=== PATIENT | female | born 1960 | race Caucasian/White ===

== ENCOUNTER 2020-09-17 12:35 | Emergency (ER) | payer OTHER ==
--- NOTE | 2020-09-17 14:18 | RAD REPORT ---
EXAM DESCRIPTION: RAD -Hand Left 3 View - 09/17/2020 1:56 pm CLINICAL HISTORY: Left hand pain status post injury FINDINGS: Mildly to moderately displaced fracture involves the proximal metaphysis fifth proximal ph alanx. No dislocation
--- NOTE | 2020-09-17 15:33 | ER ---
Nurse's Notes [facility] Name: Yun Hawley Age: 59 yrs Sex: Female : 1960 Arrival Date: 09/17/2020 Time: 12:38 Bed 19 Private MD: Diagnosis: 5th Metacarpal Fracture Presentation: 09/17 12:45 Chief complaint: Patient states: Tripped after uatsdin today. L hand pain and swelling ll1 since. Coronavirus screen: Client denies travel out of the [place] in the last 14 days. At this time, the client does not indicate any symptoms associated with coronavirus-19. Ebola Screen: Patient denies travel to an Ebola-affected area in the 21 days before illness onset. Initial Sepsis Screen: Does the patient meet any 2 criteria? No. Patient's initial sepsis screen is negative. Does the patient have a suspected source of infection? Yes: Bone or joint infection. Risk Assessment: Do you want to hurt yourself or someone else? Patient reports no desire to harm self or others. Onset of symptoms was September 17, 2020. 12:45 Method Of Arrival: Ambulatory ll1 12:45 Acuity: CHARITY 4 ll1 Triage Assessment: 15:51 Injury Description: Fall. ae4 Historical: - Allergies: 12:45 Codeine; ll1 12:45 Latex, Natural Rubber; ll1 12:45 Adhesives; ll1 - PMHx: 12:45 Diabetes - IDDM; 4 compressed fx of the back; Charcomarie tooth; ll1 - PSHx: 12:45 Shoulder Surgery; Cholecystectomy; Hysterectomy; ll1 - Immunization history:: Flu vaccine is not up to date. - Social history:: Smoking status: Patient denies any tobacco usage or history of. Screenin:47 Abuse screen: Denies threats or abuse. Nutritional screening: No deficits noted. ae4 Tuberculosis screening: No symptoms or risk factors identified. Fall Risk None identified. Assessment: 12:45 General: Appears in no apparent distress. uncomfortable, obese, unkempt, Behavior is ae4 calm, cooperative. Pain: Complains of pain in dorsal aspect of proximal phalanx of left index finger, dorsal aspect of middle phalanx of left middle finger, dorsal aspect of proximal phalanx of left middle finger, dorsal aspect of middle phalanx of left ring finger, dorsal aspect of proximal phalanx of left ring finger and dorsum of left hand. Neuro: Level of Consciousness is awake, alert, obeys commands, Oriented to person, place, time, situation, Appropriate for age. Cardiovascular: Patient's skin is warm and dry. Respiratory: Airway is patent Respiratory effort is even, unlabored, Respiratory pattern is regular. GI: No signs and/or symptoms were reported involving the gastrointestinal system. : No signs and/or symptoms were reported regarding the genitourinary system. EENT: No signs and/or symptoms were reported regarding the EENT system. Derm: Skin is pink, warm \T\ dry. Musculoskeletal: Swelling present in left hand. Vital Signs: 12:45 BP 155 / 82; Pulse 86; Resp 17; Temp 98.1; Pulse Ox 96% ; Weight 74.84 kg; Height 5 ft. ll1 1 in. (154.94 cm); Pain 9/10; 12:45 BP 131 / 96; Pulse 88; Resp 18; Pulse Ox 95% on R/A; ae4 13:50 BP 134 / 91; Pulse 72; Resp 18; Pulse Ox 100% on R/A; ae4 14:43 BP 136 / 75; Pulse 84; Resp 18; Pulse Ox 99% on R/A; ae4 12:45 Body Mass Index 31.18 (74.84 kg, 154.94 cm) ll1 ED Course: 12:38 Patient arrived in ED. rg4 12:43 Arm band placed on. ll1 12:45 Bed in low position. Call light in reach. Side rails up X 1. Pulse ox on. NIBP on. Warm ae4 blanket given. 12:46 Trvais Johnston PA is PHCP. [facility] 12:46 Sylvester Mancuso MD is Attending Physician. [facility] 12:46 Triage completed. ll1 13:50 Garrick Noriega, MISSAEL is Primary Nurse. ae4 15:07 Casey wrap to Left Hand Orthoglass splint: Ulnar gutter/Boxer splint applied on left jp3 forearm. 15:33 Robi Tay MD is Referral Physician. [facility] 15:33 Napoleon Patel MD is Referral Physician. [facility] 15:50 No provider procedures requiring assistance completed. Patient did not have IV access ae4 during this emergency room visit. Administered Medications: No medications were administered Outcome: 15:33 Discharge ordered by MD. mchugh 15:50 Discharged to home ambulatory. ae4 15:50 Condition: stable 15:50 Discharge instructions given to patient, Instructed on discharge instructions, follow up and referral plans. Demonstrated understanding of instructions. 15:51 Patient left the ED. ae4 Signatures: Travis Johnston PA PA jmm Garcia, Rubi rg4 Gennaro Danielson jp3 Garrick Noriega RN RN ae4 Michael Bui, RN RN ll1
--- NOTE | 2020-09-17 15:33 | EDPHYS ---
Physician Documentation [facility] Name: Yun Hawley Age: 59 yrs Sex: Female : 1960 Arrival Date: 09/17/2020 Time: 12:38 Bed 19 Private MD: ED Physician Sylvester Mancuso HPI: 09/17 13:02 This 59 yrs old Female presents to ER via Ambulatory with complaints of Hand jmm Injury. 13:02 The patient or guardian reports injury. Onset: The symptoms/episode began/occurred jmm acutely, just prior to arrival. Modifying factors: The symptoms are alleviated by nothing, the symptoms are aggravated by movement. Associated signs and symptoms: Pertinent negatives: cyanosis distally, decreased sensation distally, numbness distally, tingling distally. This is a 59 year old female with a history of DM, that presents ot the ED with complaints of right sided hand pain which occurred after tripping on a curb and falling directly on the hand. Patient denies hitting her head. Historical: - Allergies: 12:45 Codeine; ll1 12:45 Latex, Natural Rubber; ll1 12:45 Adhesives; ll1 - PMHx: 12:45 Diabetes - IDDM; 4 compressed fx of the back; Charcomarie tooth; ll1 - PSHx: 12:45 Shoulder Surgery; Cholecystectomy; Hysterectomy; ll1 - Immunization history:: Flu vaccine is not up to date. - Social history:: Smoking status: Patient denies any tobacco usage or history of. ROS: 13:02 Constitutional: Negative for fever, chills, and weight loss, Cardiovascular: Negative jmm for chest pain, palpitations, and edema, Respiratory: Negative for shortness of breath, cough, wheezing, and pleuritic chest pain. 13:02 MS/extremity: Positive for injury or acute deformity. 13:02 All other systems are negative. Exam: 13:02 Constitutional: This is a well developed, well nourished patient who is awake, alert, jmm and in no acute distress. Head/Face: atraumatic. Eyes: EOMI, no conjunctival erythema appreciated ENT: Moist Mucus Membranes Neck: Trachea midline, Supple Chest/axilla: Normal chest wall appearance and motion. Cardiovascular: Regular rate and rhythm. No edema appreciated Respiratory: Normal respirations, no respiratory distress appreciated Abdomen/GI: Non distended, soft Back: Normal ROM Skin: General appearance color normal 13:02 Musculoskeletal/extremity: FROM noted to the right hand, < 2 sec dist cap refill, compartments are soft, sensation intact. 13:02 Skin: Appearance: Color: normal in color. 13:02 Neuro: Orientation: is normal, Mentation: is normal, Memory: is normal. 13:02 Psych: Behavior/mood is pleasant, cooperative. Vital Signs: 12:45 BP 155 / 82; Pulse 86; Resp 17; Temp 98.1; Pulse Ox 96% ; Weight 74.84 kg; Height 5 ft. ll1 1 in. (154.94 cm); Pain 9/10; 12:45 BP 131 / 96; Pulse 88; Resp 18; Pulse Ox 95% on R/A; ae4 13:50 BP 134 / 91; Pulse 72; Resp 18; Pulse Ox 100% on R/A; ae4 14:43 BP 136 / 75; Pulse 84; Resp 18; Pulse Ox 99% on R/A; ae4 12:45 Body Mass Index 31.18 (74.84 kg, 154.94 cm) ll1 Procedures: 13:02 Splinting: Splint applied to right hand using ulnar gutter. applied by tech. Examined jm by me, post splint application: neurovascular intact, 2+ distal pulses palpable, brisk capillary refill noted, Patient tolerated well. MDM: 13:02 Patient medically screened. [facility] 15:31 Data reviewed: vital signs, nurses notes. Counseling: I had a detailed discussion with jeison the patient and/or guardian regarding: the historical points, exam findings, and any diagnostic results supporting the discharge/admit diagnosis, radiology results, the need for outpatient follow up, to return to the emergency department if symptoms worsen or persist or if there are any questions or concerns that arise at home. ED course: Patient advised to follow up with ortho or hand for further evaluation. patient given strict return precautions. patient understood and agrees with the plan of care. . 09/17 13:02 Order name: Hand Left 3 View XRAY [facility] 09/17 14:18 Order name: RAD; Complete Time: 14:27 EDNM 09/17 13:02 Order name: Ice pack; Complete Time: 13:51 [facility] 09/17 14:27 Order name: Ulnar Gutter splint; Complete Time: 15:07 [facility] Administered Medications: No medications were administered Disposition: 09/17/20 15:33 Discharged to Home. Impression: 5th Metacarpal Fracture. - Condition is Stable. - Discharge Instructions: Metacarpal Fracture. - Medication Reconciliation Form, Thank You Letter, Antibiotic Education, Prescription Opioid Use form. - Follow up: Private Physician; When: 2 - 3 days; Reason: Recheck today's complaints, Continuance of care, Re-evaluation by your physician. Follow up: Robi Tay MD; When: 2 - 3 days; Reason: Recheck today's complaints, Continuance of care, Re-evaluation by your physician. Follow up: Napoleon Patel MD; When: 2 - 3 days; Reason: Recheck today's complaints, Continuance of care, Re-evaluation by your physician. Addendum: 09/22/2020 19:20 Co-signature as Attending Physician, Sylvester Mancuso MD I agree with the assessment and t w4 plan of care. Signatures: Dispatcher [employer] EDMS Travis Johnston PA PA Sylvester Mon MD MD tw4 Garrick Noriega RN RN ae4 Michael Bui RN RN ll1 Corrections: (The following items were deleted from the chart) 09/17 15:33 15:33 09/17/2020 15:33 Discharged to Home. Impression: 5th Metacarpal Fracture. [facility] Condition is Stable. Forms are Medication Reconciliation Form, Thank You Letter, Antibiotic Education, Prescription Opioid Use. Follow up: Private Physician; When: 2 - 3 days; Reason: Recheck today's complaints, Continuance of care, Re-evaluation by your physician. [facility] 15:51 15:33 09/17/2020 15:33 Discharged to Home. Impression: 5th Metacarpal Fracture. ae4 Condition is Stable. Discharge Instructions: Metacarpal Fracture. Forms are Medication Reconciliation Form, Thank You Letter, Antibiotic Education, Prescription Opioid Use. Follow up: Private Physician; When: 2 - 3 days; Reason: Recheck today's complaints, Continuance of care, Re-evaluation by your physician. Follow up: Robi Tay; When: 2 - 3 days; Reason: Recheck today's complaints, Continuance of care, Re-evaluation by your physician. Follow up: Napoleon Patel; When: 2 - 3 days; Reason: Recheck today's complaints, Continuance of care, Re-evaluation by your physician. jeison
[2020-09-17 15:57] VITALS: TEMP 98.1
[2020-09-17 15:59] VITALS: BP 136/75; O2SAT 99
== END 2020-09-17 15:51 | disposition home or self-care (01) ==
LOC: ER 12:35
PROC: 2W3DX1Z Immobilization of Left Lower Arm using Splint (ICD-10-PCS; principal; 2020-09-17)
DX: S62.397A Other fracture of fifth metacarpal bone, left hand, initial encounter for closed fracture (principal); W01.0XXA Fall on same level from slipping, tripping and stumbling without subsequent striking against object, initial encounter; Y93.01 Activity, walking, marching and hiking; Y92.9 Unspecified place or not applicable; Z88.5 Allergy status to narcotic agent; Z91.040 Latex allergy status; Z91.048 Other nonmedicinal substance allergy status
CPT/HCPCS: 99283

== ENCOUNTER 2021-12-10 14:22 | Emergency (ER) | payer OTHER ==
--- OUTSIDE RECORDS SUMMARY | 2021-12-10 14:29 | XMS REPORT | Continuity of Care Document ---
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 bedtime. cyclobenzap 2019-0 Yes 10mg Take 10 mg NPI:183 rine 10 mg 4-09 by mouth [id number] tablet 00:00: at 00 bedtime. 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 Ipratropium 2018-0 No 0.5 mg, Mem oria 3-30 Route: l 14:00: NEB, Drug Kapaa 00 form: AERO, ONCE, Dosing Weight 73.182, kg, PRN Respirator y Protocol, Start date: 10/31/17 9:00:00 CDT Albuterol 2018-0 No 2.5 mg, 3 Mem oria 0.83 MG/ML 3-30 mL, Route: l Inhalant 13:57: NEB, Drug Herm maru Solution 00 form: AERO, ONCE, Dosing Weight 73.182, kg, Start date: 10/31/17 8:57:00 CDT, Stop date: 10/31/17 8:57:00 CDT Sodium 2018-0 No 1,000 mL, Memori a Chloride 3-30 Rate: 25 l 0.9% IV 12:04: ml/hr, Kapaa 1000 mL 00 Infuse over: 40 hr, Route: IV, Dosing Weight 73.182 kg, Total Volume: 1,000, Start date: 10/31/17 7:04:00 CDT, Duration: 30 day, Stop date: 11/30/17 7:03:00 CDT, 1.8, m2 Etodolac 2018-0 No 300 mg = 1 Mem oria 300 MG Oral 3-04 cap, PO, l Capsule 08:30: BID, PRN Haris n [Lodine] 00 Pain, # 20 cap, 0 Refill(s) Ketorolac 2018-0 No 30 mg, Memori a 3-04 Route: IM, l 08:22: Drug form: Derek 00 INJ, ONCE, Dosing Weight 75, kg, Priority: STAT, Start date: 10/05/17 2:22: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, Stop date: 10/05/17 2:22: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 Zofran No Notes: Memoria 3-04 (Same as: l 06:03: Zofran Derek 00 ODT) Morphine No Notes: Memoria 3-04 (Same l 06:02: as:MORPhin Derek 00 e Sulfate) Methocarbam 2016-08 Yes 1,000 mg = Memoria ol 500 MG 1-10 2 tab, PO, l Oral Tablet 21:33: TID, X 3 He rmann [Robaxin] 00 day, # 18 tab, 0 Refill(s) tramadol 2016-08 Yes 50 mg = 1 Seymour vanna hydrochlori 1-10 tab, PO, l de 50 MG 21:33: Q6H, X 5 Anahi nn Oral Tablet 00 day, # 20 tab, 0 Refill(s) Mupirocin No 1 appl, Memor ia 0.02 MG/MG 10-23 NASAL, l Nasal 06:47: BID, # 1 Derek Ointment 00 gm, 0 [Bactroban] Refill(s) Septra DS Yes 1 tab, PO, Me moria 800 mg-160 -22 BID, X 7 l mg oral 06:47: day, # 14 Anahi nn tablet 00 tab, 0 Refill(s) tramadol No Notes: Not Mem oria hydrochlori -22 to exceed l de 50 MG 05:44: 400mg/day. Her prieto Oral Tablet 00 (Same As: Ultram) LET topical No Notes: For Memoria -22 topical l 05:43: use only - Kapaa Lidocain- epinephrin e-tetracai ne 1.5 ml top GEL. (Same as: Adrenalin- Xylocaine- Tetracaine ) Morphine No Notes: Memoria 3-14 (Same l 06:50: as:MORPhin Derek 00 e Sulfate) Morphine No Notes: Memoria 3-14 (Same l 02:50: as:MORPhin Derek 00 e Sulfate) Ondansetron No Notes: Seymour vanna 3-14 (Same as: l 02:50: Zofran) Kapaa 00 MEDICATION WASTE Product Size: 4 mg Product Wasted: ___ mg Sodium No 1,000 mL, Memori a Chloride 3-14 1000 l 0.154 02:50: ml/hr, Derek MEQ/ML 00 Infuse Injectable Over: 1 Solution hr, Route: IV, 1,000, Drug form: INJ, ONCE, Priority: STAT, Dosing Weight 71.036 kg, Start date: 10/14/16 21:50:00 CDT, Duration: 1 doses or times, Stop date: 10/14/16 21:50:00 CDT Metronidazo 2014-08 Yes 500 mg = 1 Memoria le 500 MG 1-23 tab, PO, l Oral Tablet 15:00: Q8H, X 7 He rmann [Flagyl] 13 day, # 21 tab, 0 Refill(s) ciprofloxac 2014-08 Yes 500 mg = 1 Memoria in 500 mg 1-23 tab, PO, l oral tablet 15:00: Q12H, X 7 H ermann 11 day, # 14 tab, 0 Refill(s) Protonix 2014-08 No Notes: Memoria 1-22 Tablet l 22:30: should not be chewed or crushed. (Same as: Protonix) Prilosec 2014-08 No 40 mg, Memoria -22 Route: PO, l 15:00: Drug form: DRC, Daily, Dosing Weight 71.036, kg, Start date: 06/25/15 9:00:00, Duration: 30 day, Stop date: 07/24/15 9:00:00 Zocor 2014-08 No Notes: Memoria 1-22 (Same as: l 03:00: Zocor) gabapentin 2014-08 No Notes: Memor ia 300 MG Oral -22 (Same as: l Capsule 03:00: Neurontin) Insulin, 2014-08 No Notes: Memoria Aspart, 1-22 Roll in l Human 01:33: palms of hands gently; Do not shake vigorously . (Same as: NovoLOG) "single patient use only" Stable for 28 days at room temperatur e. Expires in days from ____Date Glucagon 2014-08 No 1 mg, Memoria 08-25 Route: IM, l 01:33: Drug form: Kapaa 00 PDR/INJ, PRN, Dosing Weight 71.036, kg, PRN Blood Glucose Results, Start date: 06/24/15 19:33:00, Duration: 30 day, Stop date: 07/24/15 19:32:00 Dextrose 2014-08 No 25 gm, 50 Seymour vanna 50% Syringe 1-22 mL, Route: l 01:33: IVP, Drug Kapaa 00 Form: INJ, Dosing Weight 71.036, kg, PRN, PRN Blood Glucose Results, Start date: 06/24/15 19:33:00, Duration: 30 day, Stop date: 07/24/15 19:32:00 Flagyl 2014-08 No Notes: Memoria 08-25 (Same as: l 01:00: Flagyl) Derek 00 Avoid alcohol. Ciprofloxac 2014-08 No Notes: Do M emoria in 2 MG/ML 08-25 not l Injectable 01:00: refrigerat H ermann Solution 00 e [Cipro] Flexeril 2014-08 No Notes: Memoria 08-25 (Same As: l 00:53: Flexeril) Kapaa 00 Acetaminoph 2014-08 No Notes: Do M emoria en 325 MG / 08-25 not exceed l Hydrocodone 00:52: 4gm/day of Derek Bitartrate 00 acetaminop 10 MG Oral hen. Tablet (Same as: [Bovill Bovill 10/325] 325/10) Zofran 2014-08 No Notes: Memoria 08-25 (Same as: l 00:51: Zofran) Derek 00 MEDICATION WASTE Product Size: 4 mg Product Wasted: ___ mg Ondansetron 2014-08 No Notes: Seymour vanna 08-25 (Same as: l 00:49: Zofran) Derek 00 MEDICATION WASTE Product Size: 4 mg Product Wasted: ___ mg Ondansetron 2014-08 No Notes: Seymour vanna 08-24 (Same as: l 23:29: Zofran) Derek 00 MEDICATION WASTE Product Size: 4 mg Product Wasted: ___ mg Morphine 2014-08 No Notes: Memoria 08-24 (Same l 23:29: as:MORPhin Derek 00 e Sulfate) Saline 2014-08 No 10 ml, Memoria Flush 0.9% 08-24 Route: l 23:29: IVP, Drug Derek 00 Form: INJ, Dosing Weight 71.364, kg, PRN, PRN Line Flush, Start date: 06/24/15 17:29:00, Duration: 30 day, Stop date: 07/24/15 17:28:00 Sodium 2014-08 No 1,000 mL, Memori a Chloride 08-24 Rate: 100 l 0.154 23:29: ml/hr, Derek MEQ/ML 00 Infuse Injectable over: 10 Solution hr, Route: IV, Dosing Weight 71.364 kg, Total Volume: 1,000, Start date: 06/24/15 17:29:00, Stop date: 07/24/15 17:28:00 Dilaudid 2014-08 No 1 mg, 1 Memori a 08-24 mL, Route: l 22:07: IVP, Drug form: INJ, ONCE, Dosing Weight 71.364, kg, Priority: STAT, Start date: 06/24/15 16:07:00, Stop date: 06/24/15 16:07:00 Flagyl 2014-08 No Notes: Memoria 08-24 (Same as: l 21:49: Flagyl) Avoid alcohol. Ciprofloxac 2014-08 No Notes: Do M emoria in 08-24 not l 21:48: refrigerat e Ondansetron 2014-08 No Notes: Seymour vanna 08-24 (Same as: l 18:46: Zofran) Derek 00 MEDICATION WASTE Product Size: 4 mg Product Wasted: ___ mg Morphine 2014-08 No Notes: Memoria 08-24 (Same l 18:46: as:MORPhin Derek 00 e Sulfate) Sodium 2014-08 No 1,000 mL, Memori a Chloride 08-24 1000 l 0.154 18:46: ml/hr, Kapaa MEQ/ML 00 Infuse Injectable Over: 1 Solution hr, Route: IV, 1,000, Drug form: INJ, ONCE, Priority: STAT, Dosing Weight 71.364 kg, Start date: 06/24/15 12:46:00, Duration: 1 doses or times, Stop date: 06/24/15 12:46:00 Saline 2014-08 No Notes: Memoria Flush 0.9% 21 (Same as: l 18:46: BD Kapaa 00 Posiflush) Lisinopril 2014-08 No Notes: Memor ia 17 (Same as: l 23:00: Prinivil, Kapaa 00 Zestril) Protonix 2014-08 No Notes: Memoria 1-17 Tablet l 22:30: should not Kapaa 00 be chewed or crushed. (Same as: Protonix) Metronidazo 2014-08 Yes 500 mg = 1 Memoria le 500 MG 1-17 tab, PO, l Oral Tablet 16:38: Q8H, X 7 He rmann [Flagyl] day, # 21 tab, 0 Refill(s) ciprofloxac 2014-08 Yes 500 mg = 1 Memoria in 500 mg 1-17 tab, PO, l oral tablet 16:38: Q12H, X 7 H ermann day, # 14 tab, 0 Refill(s) PLease 2014-08 No PLease Memoria bring pt's -17 bring pt's l own Xopenx 15:00: own Xopenx H ermann inhaler & 00 inhaler & meloxicam meloxicam, Reminder, Drug form: MISC, Route: MISC, Daily, 06/20/15 9:00:00, Duration: 30 day, Stop date: 07/19/15 9:00:00 Prilosec 2014-08 No 40 mg, Memoria -17 Route: PO, l 15:00: Drug form: Kapaa DRC, Daily, Dosing Weight 76.818, kg, Start date: 06/20/15 9:00:00, Duration: 30 day, Stop date: 07/19/15 9:00:00 influenza 2014-08 No Notes: Memori a virus -17 (Same as: l vaccine, 15:00: Fluzone Haris n inactivated 00 Quadrivale nt) For 3 years of age and older (0.5 mL IM) Shake well before use pneumococca 2014-08 No 0.5 mL, Mem oria l capsular -17 Route: IM, l polysacchar 15:00: Daily, Herm maru kera type 1 00 Start vaccine / date: pneumococca 06/20/15 l capsular 9:00:00, polysacchar Duration: kera type 1 doses or 10A vaccine times, / Stop date: pneumococca 06/20/15 l capsular 9:00:00 polysacchar kera type 11A vaccine / pneumococca l capsular polysacchar kera type 12F vaccine / pneumococca l capsular polysacchar Zocor 2014-08 No Notes: Memoria 1-17 (Same as: l 03:00: Zocor) Kapaa gabapentin 2014-08 No Notes: Memor ia 300 MG Oral 08-20 (Same as: l Capsule 03:00: Neurontin) Herm maru Xopenex 2014-08 No Notes: SEE Seymour vanna -17 RT l 02:09: DOCUMENTAT Derek 00 ION (Same as:Xopenex ) Non-Formul casa meloxicam 2014-08 No 7.5 mg, Memor ia 08-20 Route: PO, l 00:46: Drug form: Kapaa 00 TAB, Daily, Dosing Weight 76.818, kg, PRN Pain Score 4-6, Start date: 06/19/15 18:46:00, Duration: 30 day, Stop date: 07/19/15 18:45:00 Xopenex HFA 2014-08 No 2 puff, Mem oria 08-20 Route: l 00:46: INHALATION Kapaa , Dosing Weight 76.818, kg, Q4H, PRN Wheezing, Start date: 06/19/15 18:46:00, Duration: 30 day, Stop date: 07/19/15 18:45:00 Flexeril 2014-08 No Notes: Memoria 1-17 (Same As: l 00:46: Flexeril) Kapaa Protonix 2014-08 No Notes: Memoria 1-16 Tablet l 22:30: should not Derek 00 be chewed or crushed. (Same as: Protonix) Cyclobenzap 2014-08 Yes 10 mg = 1 M emoria rine 1-16 tab, PO, l hydrochlori 22:28: Daily, PRN Derek de 10 MG 00 as needed Oral Tablet for muscle [Flexeril] spasm, 0 Refill(s) Omeprazole 2014-08 Yes 40 mg = 1 Me moria 40 MG 1-16 cap, PO, l Enteric 22:27: Daily, 0 Haris n Coated 00 Refill(s) Capsule [Prilosec] gabapentin 2014-08 Yes 300 mg = 1 M emoria 300 MG Oral 1-16 cap, PO, l Capsule 22:27: BID, 0 Kapaa 00 Refill(s) Acetaminoph 2014-08 Yes 1 tab, PO, Memoria en 325 MG / -16 TID, PRN l Hydrocodone 22:27: Pain Score Derek Bitartrate 00 6-10, 0 10 MG Oral Refill(s) Tablet [Bovill 10/325] meloxicam 2014-08 Yes 7.5 mg = 1 Me moria 7.5 mg oral 1-16 tab, PO, l tablet 22:26: Daily, PRN Anahi nn 00 Pain Score 4-6, 0 Refill(s) canaglifloz 2014-08 Yes 300 mg = 1 Memoria in 300 MG -16 tab, PO, l Oral Tablet 22:26: Daily, 0 He rmann [Invokana] 00 Refill(s) Xopenex HFA 2014-08 Yes 2 puff, Mem oria 16 INHALATION l 22:25: , Q4H, PRN Kapaa 00 as needed for wheezing, 0 Refill(s) 1.5 ML 2014-08 Yes 60 unit, Memoria Insulin -16 SUB-Q, l Glargine 22:23: QPM, 0 Kapaa 300 UNT/ML 00 Refill(s) Prefilled Syringe [Toujeo] 0.5 ML 2014-08 Yes 50 mg, Memoria albiglutide 16 SUB-Q, l 100 MG/ML 22:22: QMon, 0 Anahi nn Prefilled 00 Refill(s) Syringe [Tanzeum] lisinopril 2014-08 Yes 40 mg = 1 Me moria 40 mg oral 1-16 tab, PO, l tablet 22:21: QPM, 0 Kapaa 00 Refill(s) Simvastatin 2014-08 Yes 10 mg = 1 M emoria 10 MG Oral 1-16 tab, PO, l Tablet 22:21: Bedtime, 0 Anahi nn [Zocor] 00 Refill(s) Insulin, 2014-08 No Notes: Memoria Aspart, 1-16 Roll in l Human 21:03: palms of Kapaa 00 hands gently; Do not shake vigorously . (Same as: NovoLOG) "single patient use only" Stable for 28 days at room temperatur e. Expires in days from ____Date Dextrose 2014-08 No 25 gm, 50 Seymour vanna 50% Syringe 1-16 mL, Route: l 21:03: IVP, Drug Derek 00 Form: INJ, Dosing Weight 76.818, kg, PRN, PRN Blood Glucose Results, Start date: 06/19/15 15:03:00, Duration: 30 day, Stop date: 07/19/15 15:02:00 Glucagon 2014-08 No 1 mg, Memoria 1-16 Route: IM, l 21:03: Drug form: Derek 00 PDR/INJ, PRN, Dosing Weight 76.818, kg, PRN Blood Glucose Results, Start date: 06/19/15 15:03:00, Duration: 30 day, Stop date: 07/19/15 15:02:00 Sodium 2014-08 No 1,000 mL, Memori a Chloride 1-16 Rate: 150 l 0.154 21:02: ml/hr, Derek MEQ/ML 00 Infuse Injectable over: 6.7 Solution hr, Route: IV, Dosing Weight 76.818 kg, Total Volume: 1,000, Start date: 06/19/15 15:02:00, Duration: 30 day, Stop date: 07/19/15 15:01:00 Flagyl 2014-08 No Notes: Memoria 1-16 (Same as: l 21:00: Flagyl) Kapaa 00 Avoid alcohol. Cipro 2014-08 No Notes: Do Memoria 1-16 not l 21:00: refrigerat [place] 00 e Sodium 2014-08 No 1,000 mL, Memori a Chloride 1-16 Rate: 125 l 0.154 21:00: ml/hr, Kapaa MEQ/ML 00 Infuse Injectable over: 8 Solution hr, Route: IV, Dosing Weight 76.818 kg, Total Volume: 1,000, Start date: 06/19/15 15:00:00, Duration: 30 day, Stop date: 07/19/15 14:59:00 Saline 2014-08 No Notes: Memoria Flush 0.9% 08-19 (Same as: l 21:00: BD [place]aa 00 Posiflush) Morphine 2014-08 No Notes: Memoria 08-19 (Same l 21:00: as:MORPhin Derek 00 e Sulfate) Ondansetron 2014-08 No Notes: Seymour vanna 08-19 (Same as: l 21:00: Zofran) Kapaa MEDICATION WASTE Product Size: 4 mg Product Wasted: ___ mg Docusate 2014-08 No Notes: Memoria 08-19 (Same as: l 21:00: Colace) Derek (Do Not Crush) Acetaminoph 2014-08 No Notes: Do M emoria en 08-19 not exceed l 21:00: 4 gm/day. Derek (Same as: Tylenol) Acetaminoph 2014-08 No Notes: Seymour vanna en 325 MG / 08-19 (Same as: l Hydrocodone 21:00: Bovill Anahi nn Bitartrate 00 325/5) Do 5 MG Oral not exceed Tablet 4gm/day of acetaminop hen. Dilaudid 2014-08 No 0.5 mg, Memori a 08-19 0.5 mL, l 20:51: Route: [place] 00 IVP, Drug form: INJ, ONCE, Dosing Weight 76.818, kg, Priority: STAT, Start date: 06/19/15 14:51:00, Stop date: 06/19/15 14:51:00 Ciprofloxac 2014-08 No 400 mg, Mem oria in 08-19 Route: l 20:46: IVPB, [place] 00 ONCE, Dosing Weight 76.818, kg, Priority: STAT, Start date: 06/19/15 14:46:00, Stop date: 06/19/15 14:46:00 Flagyl 2014-08 No 500 mg, Memoria 08-19 Route: l 20:46: IVPB, Derek 00 ONCE, Dosing Weight 76.818, kg, Priority: STAT, Start date: 06/19/15 14:46:00, Stop date: 06/19/15 14:46:00 Ceftriaxone 2014-08 No 1 gm, Memor ia 08-19 Route: l 18:26: IVPB, Drug form: PDR/INJ, ONCE, Dosing Weight 76.818, kg, Priority: STAT, Start date: 06/19/15 12:26:00, Stop date: 06/19/15 12:26:00 Dilaudid 2014-08 No 0.5 mg, Memori a 08-19 Route: l 18:26: IVP, ONCE, Dosing Weight 76.818, kg, Priority: STAT, Start date: 06/19/15 12:26:00, Stop date: 06/19/15 12:26:00 Morphine 2014-08 No 4 mg, Memoria 08-19 Route: l 17:13: IVP, ONCE, Dosing Weight 76.818, kg, Priority: STAT, Start date: 06/19/15 11:13:00, Stop date: 06/19/15 11:13:00 Ondansetron 2014-08 No 4 mg, Memor ia 08-19 Route: l 17:13: IVP, ONCE, Dosing Weight 76.818, kg, Priority: STAT, Start date: 06/19/15 11:13:00, Stop date: 06/19/15 11:13:00 Saline 2014-08 No Notes: Memoria Flush 0.9% 08-19 (Same as: l 17:13: BD Posiflush) Sodium 2014-08 No 1,000 mL, Memori a Chloride 08-19 Infuse l 0.154 17:13: Over: 1 Derek MEQ/ML 00 hr, Route: Injectable IV, ONCE, Solution Priority: STAT, Dosing Weight 76.818 kg, Start date: 06/19/15 11:13:00, Duration: 1 doses or times, Stop date: 06/19/15 11:13:00 tramadol Yes 1 - 2 Memoria hydrochlori 1-24 tabs, PO, l de 50 MG 08:57: Q4-6H, as Herm maru Oral Tablet 00 needed for [Ultram] pain, # 30 tab, 0 Refill(s) ibuprofen Yes Special Memor ia 800 mg oral 1-24 Instructio l tablet 08:57: ns: Take Derek with food Ondansetron No 4 mg, Memor ia 4 MG 08-27 Route: PO, l Disintegrat 08:26: Drug form: Kapaa ing Tablet 00 TABDIS, ONCE, Dosing Weight 75, kg, Priority: STAT, Start date: 08/27/14 2:26:00, Stop date: 08/27/14 2:26:00 Acetaminoph No 1 tab, Seymour vanna en 325 MG / 08-27 Route: PO, l Hydrocodone 07:44: Dosing Herm maru Bitartrate 00 Weight 75, 7.5 MG Oral kg, ONCE, Tablet STAT, Start date: 08/27/14 1:44:00, Stop date: 08/27/14 1:44:00 Acetaminoph Yes 1 tab, PO, Memoria en 325 MG / 04-08 Q4-6H, as l Hydrocodone 06:42: needed for Derek Bitartrate 00 pain, # 30 5 MG Oral tab, 0 Tablet Refill(s) [Bovill 5/325] Naproxen Yes 500 mg = 1 Mem oria 500 MG Oral 04-08 tab, PO, l Tablet 06:42: BID, for Kapaa [Naprosyn] 00 pain, # 20 tab, 0 Refill(s) Morphine No 4 mg, Memoria 04-08 Route: l 06:39: IVP, ONCE, Derek 00 Dosing Weight 75, kg, Priority: STAT, Start date: 04/08/14 1:39:00, Stop date: 04/08/14 1:39:00 Ketorolac No 30 mg, Memori a 04-08 Route: l 06:38: IVP, Drug [place] 00 form: INJ, ONCE, Dosing Weight 75, kg, Priority: STAT, Start date: 04/08/14 1:38:00, Stop date: 04/08/14 1:38:00 Zofran No Notes: Memoria 04-08 (Same as: l 03:47: Zofran) Kapaa 00 Morphine No Notes: Memoria 04-08 (Same l 03:47: as:MORPhin Kapaa e Sulfate) Xopenex No 1.25 mg, Memori a 04-08 Route: l 03:46: NEB, ONCE, [place] 00 Dosing Weight 75, kg, Start date: 04/07/14 22:46:00, Stop date: 04/07/14 22:46:00 heparin No Uriel 5,000 Memor ia 5000 01-14 Hussein Romero unit, 1 l units/mL 21:00: mL, Route: Her prieto injectable 00 SUB-Q, solution Drug form: INJ, Q8H, Dosing Weight 76.818, kg, Start date: 01/14/13 16:00:00, Duration: 30 day, Stop date: 02/13/13 8:00:00 Zofran 4 mg Yes Uriel 4 mg, 1 Memoria oral tablet 01-14 Hussein Romero tab, PO, l 19:42: Q8H, PRN, Derek 07 25 tab, as needed for nausea/vom iting, Substituti on Allowed, TAB Zofran 4 mg No Uriel 4 mg, 1 Memoria oral tablet 01-14 Hussein Romero tab, PO, l 19:41: Q8H, 25 [place]aa 24 tab, Substituti on Allowed, TAB Vicodin HP Yes Uriel 1 tab, PO, Memoria 10 mg-300 01-14 Hussein Romero Q6H, PRN, l mg oral 18:22: (not to Kapaa tablet 06 exceed 4000 mg acetaminop hen per day), 50 tab, as needed for pain, Substituti on Allowed, Maintenanc e(not to exceed 4000 mg acetaminop hen per day) Colace 100 Yes Uriel 100 mg, 1 Memoria mg oral 01-14 Hussein Romero cap, PO, l capsule 18:07: BID, PRN, Anahi nn 47 with plenty of water, 60 cap, Constipati on, Substituti on Allowed, CAPwith plenty of water Valium 5 mg Yes Uriel 5 mg, 1 Memoria oral tablet 01-14 Hussein Romero tab, PO, l 18:07: TID, PRN, Derek 43 30 tab, spasm, Substituti on Allowed, TAB Bovill No Uriel 1-2 tab, Seymour vanna 10/325 oral 01-14 Hussein Romero PO, Q4-6H, l tablet 18:07: PRN, (not Haris n 33 to exceed 4000 mg acetaminop hen per day), 50 tab, Pain, Substituti on Allowed, Maintenanc e(not to exceed 4000 mg acetaminop hen per day) diazepam No Alysa L 5 mg, 1 M emoria 01-13 May tab, l 05:00: Route: PO, Derek 00 Drug form: TAB, Q8H, Dosing Weight 72.727, kg, Start date: 01/13/13 0:00:00, Duration: 30 day, Stop date: 02/11/13 16:00:00 docusate No Alysa L 100 mg, 1 Memoria - May cap, l 02:00: Route: PO, Derek 00 Drug form: CAP, Q12H, Dosing Weight 72.727, kg, Start date: 01/12/13 21:00:00, Duration: 30 day, Stop date: 02/11/13 9:00:00 famotidine No Alysa L 20 mg, 2 Memoria 01-13 May mL, Route: l 02:00: IVP, Drug Derek 00 form: INJ, Q12H, Dosing Weight 72.727, kg, Start date: 01/12/13 21:00:00, Duration: 30 day, Stop date: 02/11/13 9:00:00 Saline No Alysa L 5 ml, Memor ia Flush 0.9% 01-13 May Route: l 02:00: IVP, Drug [place] 00 Form: INJ, Dosing Weight 72.727, kg, Q12H, Start date: 01/12/13 21:00:00, Duration: 30 day, Stop date: 02/11/13 9:00:00 acetaminoph No Alysa L 1 tab, Memoria en-hydrocod 01-13 May Route: PO, l one 325 01:00: Drug Form: Herm maru mg-10 mg 00 TAB, oral tablet Dosing Weight 72.727, kg, Q4H, Start date: 01/12/13 20:00:00, Duration: 30 day, Stop date: 02/11/13 16:00:00 Phenergan 2013-0 No Estela 12.5 mg, Memoria 6-12 Michelle 0.5 mL, l 00:08: Helander Route: [place] 00 IVPB, Drug form: INJ, ONCE, Dosing Weight 72.727, kg, PRN Nausea & Vomiting, Start date: 01/12/13 19:08:00, Stop date: 02/11/13 19:07:00 hydromorpho 2013-0 No Estela 1 mg, 0.5 Memoria ne 6-12 Michelle mL, Route: l 00:08: Helander IVP, Drug Herm maru 00 form: INJ, ONCE, Dosing Weight 72.727, kg, Priority: STAT, Start date: 01/12/13 19:08:00, Stop date: 01/12/13 19:08:00 Phenergan 2013-0 No Estela 12.5 mg, Memoria 6-11 Michelle Route: l 23:22: Helander IVPB, [place] 00 ONCE, Dosing Weight 72.727, kg, Start date: 01/12/13 18:22:00, Stop date: 01/12/13 18:22:00 Dilaudid 2012-0 No Estela 1 mg, Mem oria 6-11 Michelle Route: l 23:21: Helander IVP, ONCE, Her prieto 00 Dosing Weight 72.727, kg, Priority: STAT, Start date: 01/12/13 18:21:00, Stop date: 01/12/13 18:21:00 ondansetron 2012-0 No Alysa L 4 mg, 2 Memoria 6-11 May mL, Route: l 23:06: IVP, Drug Derek 00 form: INJ, Q8H, Dosing Weight 72.727, kg, PRN Nausea & Vomiting, Start date: 01/12/13 18:06:00, Duration: 30 day, Stop date: 02/11/13 18:05:00 Saline 2013-0 No Alysa L 5 ml, Memor ia Flush 0.9% 6-11 May Route: l 23:06: IVP, Drug Derek 00 Form: INJ, Dosing Weight 72.727, kg, PRN, PRN Line Flush, Start date: 01/12/13 18:06:00, Duration: 30 day, Stop date: 02/11/13 18:05:00 morphine 2012- No Alysa L 2 mg, 1 M emoria Sulfate 6-11 May mL, Route: l 23:06: IVP, Drug Kapaa form: INJ, Q1H, Dosing Weight 72.727, kg, PRN Pain Score 7-10, Start date: 01/12/13 18:06:00, Duration: 30 day, Stop date: 02/11/13 18:05:00 Sodium 2012- No Alysa L 1,000 mL, M emoria Chloride 6 May Rate: 50 l 0.9% IV 23:06: ml/hr, Kapaa 1,000 mL 00 Infuse over: 20 hr, Route: IV, Dosing Weight 72.727 kg, Total Volume: 1,000, Start date: 01/12/13 18:06:00, Duration: 30 day, Stop date: 02/11/13 18:05:00 Kombiglyze Yes 1 tab, PO, M emoria XR 5 mg-500 6-11 Daily, l mg oral 22:50: take for 2 Herm maru tablet, 18 weeks then extended increase release dose to 5mg-1000 mg, Substituti on Allowed, Maintenanc etake for 2 weeks then increase dose to 5mg-1000 mg Kombiglyze Yes 1 tab, PO, M emoria XR 5 6-11 Daily, l mg-1000 mg 22:50: Substituti H ermann oral 00 on tablet, Allowed, extended Maintenanc release e Victoza 6 Yes SUB-Q, Memori a mg/mL 6-11 Daily, l subcutaneou 22:49: Substituti Kapaa s injection 28 on Allowed ondansetron No Estela 4 mg, Memoria 6-11 Michelle Route: l 20:56: Helander IVP, Drug Herm maru form: INJ, ONCE, Dosing Weight 72.727, kg, Priority: STAT, Start date: 01/12/13 15:56:00, Stop date: 01/12/13 15:56:00 Zofran 2012-0 No Estela 4 mg, Memor ia 6-11 Michelle Route: l 20:54: Helander IVP, Drug Herm maru 00 form: INJ, ONCE, Dosing Weight 72.727, kg, Priority: STAT, Start date: 01/12/13 15:54:00, Stop date: 01/12/13 15:54:00 Zofran 2012-0 No Estela 4 mg, 2 Mem oria 6-11 Michelle mL, Route: l 19:03: Helander IVP, Drug Herm maru 00 form: INJ, ONCE, Dosing Weight 72.727, kg, Priority: STAT, Start date: 01/12/13 14:03:00, Stop date: 01/12/13 14:03:00 Dilaudid 2012-0 No Estela 1 mg, 0.5 Memoria 6-11 Michelle mL, Route: l 19:03: Helander IV, Drug Anahi nn 00 form: INJ, ONCE, Dosing Weight 72.727, kg, Start date: 01/12/13 14:03:00, Stop date: 01/12/13 14:03:00 morphine 2012-0 No Anmol G 8 mg, Mem oria Sulfate 6-11 Nereida Route: l 17:42: IVP, ONCE, Kapaa Dosing Weight 72.727, kg, Priority: STAT, Start date: 01/12/13 12:42:00, Stop date: 01/12/13 12:42:00 midazolam 2012-0 No Anmol G 1 mg, Me moria 6-11 Nereida Route: l 17:41: IVP, ONCE, Kapaa Dosing Weight 72.727, kg, Start date: 01/12/13 12:41:00, Stop date: 01/12/13 12:41:00 morphine 2012-0 No Estlea 4 mg, 1 M emoria Sulfate 6-11 Michelle mL, Route: l 15:57: Helander IVP, Drug Herm maru 00 form: INJ, ONCE, Dosing Weight 76.818, kg, Priority: STAT, Start date: 01/12/13 10:57:00, Stop date: 01/12/13 10:57:00 benzocaine 2013-0 Yes Isolde 4 drp, Mem oria otic 20% -17 Sasam RIGHT EAR, l solution 19:22: Aguhar Q2H, PRN Her prieto 03 as needed for pain, 1 btl, Substitute Allowed Motrin 800 Yes Isolde 800 mg, 1 Memoria mg oral -17 Sasam tab, PO, l tablet 19:21: Aguhar Q8H, PRN, Herm maru 51 Take with food, 30 tab, Pain, Substituti on AllowedTak e with food Cortisporin Yes Isolde 2 drp, Me moria Otic -17 Sasam RIGHT EAR, l solution 19:20: Aguhar QID, 1 Anahi nn 56 btl, Substitute Allowed, SOLN ofloxacin No Isolde 5 drp, Seymour vnana otic 0.3% -17 Sasam Route: l solution 18:45: Aguhar RIGHT EAR, H ermann 00 ONCE, Start date: 08/20/12 12:45:00, Stop date: 08/20/12 12:45:00 pneumococca 2009-0 No SYSTEM 0.5 ml, M emoria l 23-valent 3-16 SYSTEM Route: IM, l vaccine 14:00: Start [place] 00 date: 10/17/09 9:00:00, Stop date: 10/17/09 9:00:00 Immunizations Ordered Immunization Filled Immunization Date Status Commen ts Source Name Name Influenza Virus 2021-05-16 Completed NPI:[id number] Vaccine Quad IM, 00:00:00 Preserv and ABX Free 6 MO-64 YRS Influenza Virus 2021-05-16 Completed NPI:[id number] Vaccine Quad IM, 00:00:00 Preserv and ABX Free 6 MO-64 YRS Influenza Virus 2017-05-08 Completed NPI:[id number] Vaccine Quad ID 00:00:00 18-64 YRS Influenza Virus 2017-05-08 Completed NPI:[id number] Vaccine Quad ID 00:00:00 18-64 YRS TDAP 2017-02-21 Completed 00:00:00 TDAP 2017-02-21 Completed 00:00:00 Influenza Virus 2016-06-06 Completed NPI:[id number] Vaccine Quad IM 3+ 00:00:00 YRS Influenza Virus 2016-06-06 Completed NPI:[id number] Vaccine Quad IM 3+ 00:00:00 YRS influenza virus 2015-06-20 Completed [facility] vaccine, inactivated 15:04:00 Herm maru pneumococcal 2009-10-17 Completed [facility] 23-valent vaccine 19:00:00 Derek pneumococcal 2009-10-17 Completed [facility] 23-valent vaccine 19:00:00 Derek Pneumococcal 2009-10-17 Completed NPI:[id number] Polysaccharide, 00:00:00 PPSV23 (PNEUMOVAX) Pneumococcal 2009-10-17 Completed NPI:[id number] Polysaccharide, 00:00:00 PPSV23 (PNEUMOVAX) Vital Signs Vital Name Observation Time Observation Value Comments Source Systolic blood 2021-11-27 14:15:00 105 mm[Hg] NPI:[id number] pressure Diastolic blood 2021-11-27 14:15:00 71 mm[Hg] NPI:1 [id number] pressure Heart rate 2021-11-27 14:15:00 80 /min NPI:[id number] Body height 2021-11-27 14:15:00 152.4 cm NPI:[id number] Body weight 2021-11-27 14:15:00 79.833 kg NPI:[id number] BMI 2021-11-27 14:15:00 34.37 kg/m2 NPI:[id number] Oxygen saturation in 2021-11-27 14:15:00 95 /min Arterial blood by Pulse oximetry Respitory Rate 2018-09-20 14:06:00 Memori al [place] Systolic (mm Hg) 2018-09-20 14:06:00 Seymour rial Derek Diastolic (mm Hg) 2018-09-20 14:06:00 Mem orial [place] Temperature Oral (F) 2018-09-20 14:06:00 98.1 F [facility] Derek Respitory Rate 2018-09-20 13:00:00 [facility] al [place] Systolic (mm Hg) 2018-09-20 13:00:00 Seymour rial Derek Diastolic (mm Hg) 2018-09-20 13:00:00 Mem orial Derek Systolic (mm Hg) 2018-09-20 11:08:00 Seymour rial [place] Diastolic (mm Hg) 2018-09-20 11:08:00 Mem orial Derek Heart Rate 2018-09-20 11:08:00 [facility] [place] Respitory Rate 2018-09-20 11:08:00 [facility] [place] Weight 2018-09-20 09:49:00 [facility] Derek Temperature Oral (F) 2018-09-20 09:49:00 98.3 F [facility] [place] Heart Rate 2018-09-20 09:49:00 [facility] [place] Systolic (mm Hg) 2017-10-31 14:30:00 Seymour rial [place] Diastolic (mm Hg) 2017-10-31 14:30:00 Mem orial [place] Respitory Rate 2017-10-31 14:30:00 [facility] al [place] Systolic (mm Hg) 2017-10-31 14:15:00 Seymour rial [place] Diastolic (mm Hg) 2017-10-31 14:15:00 Mem orial Derek Respitory Rate 2017-10-31 14:15:00 Memori al Derek Systolic (mm Hg) 2017-10-31 14:00:00 Seymour rial Derek Diastolic (mm Hg) 2017-10-31 14:00:00 Mem orial [place] Respitory Rate 2017-10-31 14:00:00 [facility] [place] Heart Rate 2017-10-31 12:06:00 [facility] Derek Temperature Oral (F) 2017-10-29 13:32:00 97.6 F [facility] Derek Heart Rate 2017-10-29 13:32:00 [facility] Derek BMI Calculated 2017-10-29 13:21:00 [facility] [place] Weight 2017-10-29 13:21:00 [facility] Derek Height 2017-10-29 13:21:00 154.94 cm [facility] Derek Respitory Rate 2017-10-05 08:37:00 Memori al Derek Heart Rate 2017-10-05 06:00:00 [facility] Derek Systolic (mm Hg) 2017-10-05 06:00:00 Seymour rial [place] Diastolic (mm Hg) 2017-10-05 06:00:00 Mem orial [place] Weight 2017-10-05 06:00:00 [facility] [place] Respitory Rate 2017-10-05 06:00:00 [facility] [place] Temperature Oral (F) 2017-10-05 06:00:00 98.0 F [facility] [place] Respitory Rate 2017-06-13 21:54:00 [facility] [place] Heart Rate 2017-06-13 21:54:00 [facility] Derek Systolic (mm Hg) 2017-06-13 21:54:00 Seymour rial [place] Diastolic (mm Hg) 2017-06-13 21:54:00 Mem orial Derek Weight 2017-06-13 19:51:00 [facility] Derek Systolic (mm Hg) 2017-06-13 19:51:00 Seymour rial Derek Diastolic (mm Hg) 2017-06-13 19:51:00 Mem orial Derek Respitory Rate 2017-06-13 19:51:00 Memori al Derek Heart Rate 2017-06-13 19:51:00 [facility] [place] Temperature Oral (F) 2017-06-13 19:51:00 98.3 F [facility] Derek Respitory Rate 2016-11-15 08:36:00 [facility] [place] Heart Rate 2016-11-15 08:36:00 [facility] Derek Systolic (mm Hg) 2016-11-15 08:36:00 Seymour rial [place] Diastolic (mm Hg) 2016-11-15 08:36:00 Mem orial [place] Weight 2016-11-15 07:48:00 [facility] Derek Temperature Oral (F) 2016-11-15 07:48:00 97.5 F [facility] [place] Respitory Rate 2016-11-15 07:48:00 [facility] al [place] Heart Rate 2016-11-15 07:48:00 [facility] [place] Systolic (mm Hg) 2016-11-15 07:48:00 Seymour rial [place] Diastolic (mm Hg) 2016-11-15 07:48:00 Mem orial [place] Systolic (mm Hg) 2016-10-23 07:11:00 Seymour rial [place] Diastolic (mm Hg) 2016-10-23 07:11:00 Mem orial [place] Temperature Oral (F) 2016-10-23 07:11:00 97.6 F [facility] [place] Heart Rate 2016-10-23 07:11:00 [facility] [place] Respitory Rate 2016-10-23 07:11:00 [facility] [place] Weight 2016-10-23 05:14:00 [facility] [place] Temperature Oral (F) 2016-10-23 05:14:00 97.6 F [facility] Derek Heart Rate 2016-10-23 05:14:00 [facility] [place] Respitory Rate 2016-10-23 05:14:00 [facility] al [place] Systolic (mm Hg) 2016-10-23 05:14:00 Seymour rial Derek Diastolic (mm Hg) 2016-10-23 05:14:00 Mem orial [place] Systolic (mm Hg) 2016-10-15 08:34:00 Seymour rial [place] Diastolic (mm Hg) 2016-10-15 08:34:00 Mem orial [place] Systolic (mm Hg) 2016-10-15 08:26:00 Seymour rial [place] Diastolic (mm Hg) 2016-10-15 08:26:00 Mem orial Derek Respitory Rate 2016-10-15 07:23:00 Mem[facility] al [place] Systolic (mm Hg) 2016-10-15 07:23:00 Seymour rial Derek Diastolic (mm Hg) 2016-10-15 07:23:00 Mem orial Derek Heart Rate 2016-10-15 07:23:00 [facility] Derek Respitory Rate 2016-10-15 06:31:00 [facility] al [place] Heart Rate 2016-10-15 06:31:00 [facility] [place] Respitory Rate 2016-10-15 05:19:00 [facility] [place] Heart Rate 2016-10-15 05:19:00 [facility] Derek Temperature Oral (F) 2016-10-15 04:03:00 97.9 F [facility] Derek Height 2016-10-15 02:48:00 154.94 cm [facility] Derek Weight 2016-10-15 02:48:00 [facility] Derek BMI Calculated 2016-10-15 02:48:00 [facility] al [place] Temperature Oral (F) 2016-10-15 02:48:00 98.1 F [facility] Derek Respitory Rate 2015-06-26 14:00:00 Memori al Derek Systolic (mm Hg) 2015-06-26 14:00:00 Seymour rial Derek Diastolic (mm Hg) 2015-06-26 14:00:00 Mem orial Derek Temperature Oral (F) 2015-06-26 14:00:00 97.3 F [facility] [place] Heart Rate 2015-06-26 14:00:00 [facility] Derek Respitory Rate 2015-06-26 10:58:00 Memori al Derek Systolic (mm Hg) 2015-06-26 10:58:00 Seymour rial [place] Diastolic (mm Hg) 2015-06-26 10:58:00 Mem orial [place] Heart Rate 2015-06-26 10:58:00 [facility] [place] Temperature Oral (F) 2015-06-26 10:58:00 97.8 F [facility] [place] Systolic (mm Hg) 2015-06-26 06:24:00 Seymour rial [place] Diastolic (mm Hg) 2015-06-26 06:24:00 Mem orial Derek Respitory Rate 2015-06-26 06:24:00 Memori al Derek Temperature Oral (F) 2015-06-26 06:24:00 98.1 F [facility] [place] Heart Rate 2015-06-26 06:24:00 [facility] Derek Weight 2015-06-24 23:41:00 [facility] [place] BMI Calculated 2015-06-24 23:41:00 [facility] al [place] Height 2015-06-24 23:41:00 152.4 cm [facility] Derek Height 2015-06-24 17:52:00 152.4 cm [facility] Derek Weight 2015-06-24 17:52:00 [facility] [place] BMI Calculated 2015-06-24 17:52:00 Memori al Derek Respitory Rate 2015-06-20 18:01:00 Memori al [place] Heart Rate 2015-06-20 18:01:00 [facility] Derek Temperature Oral (F) 2015-06-20 18:01:00 97.8 F [facility] Derek Systolic (mm Hg) 2015-06-20 18:01:00 Seymour rial [place] Diastolic (mm Hg) 2015-06-20 18:01:00 Mem orial [place] Systolic (mm Hg) 2015-06-20 15:47:00 Seymour rial Derek Diastolic (mm Hg) 2015-06-20 15:47:00 Mem orial Derek Respitory Rate 2015-06-20 14:29:00 [facility] al [place] Heart Rate 2015-06-20 14:15:00 [facility] [place] Temperature Oral (F) 2015-06-20 14:15:00 97.6 F [facility] [place] Respitory Rate 2015-06-20 14:15:00 [facility] [place] Systolic (mm Hg) 2015-06-20 14:15:00 Seymour rial Kapaa Diastolic (mm Hg) 2015-06-20 14:15:00 Mem orial Derek Heart Rate 2015-06-20 11:32:00 [facility] [place] Temperature Oral (F) 2015-06-20 11:00:00 98.1 F [facility] [place] Weight 2015-06-20 05:17:00 [facility] Derek BMI Calculated 2015-06-20 05:17:00 [facility] [place] Height 2015-06-20 05:17:00 152.4 cm [facility] Derek BMI Calculated 2015-06-19 15:36:00 [facility] Derek Weight 2015-06-19 15:36:00 [facility] Derek Height 2015-06-19 15:36:00 152.4 cm [facility] [place] Systolic (mm Hg) 2014-08-27 09:05:00 Seymour rial [place] Respitory Rate 2014-08-27 09:05:00 Memori al Derek Diastolic (mm Hg) 2014-08-27 09:05:00 Mem orial Derek Temperature Oral (F) 2014-08-27 09:05:00 97.9 F [facility] [place] Heart Rate 2014-08-27 09:05:00 [facility] [place] Systolic (mm Hg) 2014-08-27 07:03:00 Seymour rial [place] Heart Rate 2014-08-27 07:03:00 [facility] Derek Diastolic (mm Hg) 2014-08-27 07:03:00 Mem orial Derek Respitory Rate 2014-08-27 07:03:00 Memori al Derek Temperature Oral (F) 2014-08-27 07:03:00 97.6 F [facility] [place] Height 2014-08-27 07:03:00 154.94 cm [facility] [place] Weight 2014-08-27 07:03:00 [facility] [place] BMI Calculated 2014-08-27 07:03:00 [facility] [place] Systolic (mm Hg) 2014-04-08 07:45:00 Seymour rial Derek Diastolic (mm Hg) 2014-04-08 07:45:00 Mem orial Derek Respitory Rate 2014-04-08 07:45:00 Memori al Derek Temperature Oral (F) 2014-04-08 07:45:00 97.8 F [facility] Derek Heart Rate 2014-04-08 04:56:00 [facility] [place] Respitory Rate 2014-04-08 04:56:00 Mem[facility] al [place] Diastolic (mm Hg) 2014-04-08 04:56:00 Mem orial [place] Systolic (mm Hg) 2014-04-08 04:56:00 Seymour rial Derek Weight 2014-04-08 02:32:00 [facility] Derek BMI Calculated 2014-04-08 02:32:00 [facility] al [place] Height 2014-04-08 02:32:00 154.94 cm [facility] Derek Temperature Oral (F) 2014-04-08 02:32:00 98.4 F [facility] Derek Systolic (mm Hg) 2014-04-08 02:32:00 Seymour rial [place] Heart Rate 2014-04-08 02:32:00 [facility] Derek Diastolic (mm Hg) 2014-04-08 02:32:00 Mem orial Derek Respitory Rate 2014-04-08 02:32:00 Memori al Derek Diastolic (mm Hg) 2013-01-15 16:38:00 Mem orial [place] Systolic (mm Hg) 2013-01-15 16:38:00 Seymour rial Derek Respitory Rate 2013-01-15 16:38:00 Memori al [place] Heart Rate 2013-01-15 16:38:00 [facility] [place] Temperature Oral (F) 2013-01-15 16:38:00 98.7 F [facility] Derek Diastolic (mm Hg) 2013-01-15 13:44:00 Mem orial [place] Systolic (mm Hg) 2013-01-15 13:44:00 Seymour rial [place] Heart Rate 2013-01-15 13:44:00 [facility] [place] Respitory Rate 2013-01-15 13:44:00 Memori al Derek Temperature Oral (F) 2013-01-15 12:49:00 97.6 F [facility] Derek Heart Rate 2013-01-15 12:49:00 [facility] [place] Diastolic (mm Hg) 2013-01-15 12:49:00 Mem orial Derek Systolic (mm Hg) 2013-01-15 12:49:00 Seymour rial [place] Respitory Rate 2013-01-15 12:49:00 Memori al [place] Temperature Oral (F) 2013-01-15 08:34:00 97.3 F [facility] [place] Weight 2013-01-13 04:52:00 [facility] Derek Height 2013-01-13 04:52:00 154.94 cm [facility] [place] Height 2013-01-12 15:50:00 165.1 cm [facility] Derek Weight 2013-01-12 15:50:00 [facility] [place] Weight 2013-01-12 15:36:00 [facility] Derek Height 2013-01-12 15:36:00 154.94 cm [facility] [place] Height 2012-08-20 18:32:00 154.94 cm [facility] Derek Weight 2012-08-20 18:32:00 [facility] [place] Procedures Procedure Date / Time Performing Clinician Source Performed POCT HEMOGLOBIN A1C TEST 2021-11-27 14:19:00 Anyi Lagunas NPI :[id number] Abdominal hysterectomy [facility] [place] Cholecystectomy [facility] [place] Colonoscopy [facility] [place] Decompression of nerve via Memor ial Kapaa subclavian approach<sup>1</sup> Abdominal hysterectomy [facility] Start End Encounter Admission Attending Care Care Encounter Source Date/Time Date/Time Type Type Clinicians Facility Department ID 2021-11-27 2021-11-27 Office Bebo [facility] [id number] NPI:[id number] 09:30:00 10:07:42 Visit [facility] [id number] [place] [id number] LÓPEZ?BLEA [id number] [facility] [place] [facility] MEDICAL OFFICE BUILDING 2021-11-27 2021-11-27 Outpatient R BE[facility] [id number] NPI:183 09:30:00 10:07:42 [facility] [id number] 2019-10-22 2019-10-23 Outpt Diag nullFlavo [facility] [id number] Memoria 14:00:00 04:59:00 Services r Outpatient 10 l [facility] 2018-09-20 2018-09-20 Emergency [facility] [id number] Memoria 09:45:00 14:33:00 r Derek 20 l [facility] 2017-10-31 2017-10-31 Bedded [facility] [id number] Memoria 10:53:00 14:44:00 Outpatient r [place] 18 l [facility] 2017-10-05 2017-10-05 Emergency nullFlavo [facility] [id number] Memoria 05:31:00 08:42:00 r Derek 19 l [facility] 2017-06-13 2017-06-13 Emergency nullFlavo [facility] [id number] Memoria 19:46:00 21:57:00 r Derek 17 l [facility] 2016-11-15 2016-11-15 Emergency nullFlavo [facility] [id number] Memoria 07:39:00 09:48:00 r Derek 16 l [facility] 2016-10-23 2016-10-23 Emergency nullFlavo [facility] [id number] Memoria 04:32:00 07:13:00 r Derek 15 l [facility] 2016-10-15 2016-10-15 Emergency nullFlavo [facility] [id number] Memoria 02:42:00 08:45:00 r Derek 14 l [facility] 2016-01-29 2016-01-30 Outpt Diag nullFlavo [facility] [id number] Memoria 13:10:00 04:59:00 Services r Outpatient 09 [facility] 2015-06-24 2015-06-26 OBS nullFlavo [facility] [id number] Memoria 17:51:00 16:30:00 Observatio sharda Reed 13 l [facility] 2015-06-19 2015-06-20 Inpatient nullFlavo [facility] [id number] Memoria 15:35:00 22:28:00 r Derek 12 l [facility] 2014-08-27 2014-08-27 EC nullFlavo [facility] [id number] Memoria 06:48:00 09:14:00 Emergency r Derek 11 l [facility] 2014-08-17 2014-08-18 Outpt Diag nullFlavo [facility] [id number] Memoria 16:40:00 05:59:00 Services r Outpatient 08 l [facility] 2014-04-08 2014-04-08 EC nullFlavo [facility] [id number] Memoria 02:28:00 07:55:00 Emergency r Derek 10 l [facility] 2014-02-23 2014-02-24 Outpt Diag nullFlavo [facility] [id number] Memoria 14:49:00 04:59:00 Services r Outpatient 07 l [facility] 2013-11-17 2013-11-18 Outpt Diag nullFlavo [facility] [id number] Memoria 15:03:00 04:59:00 Services r Outpatient 06 l [facility] 2013-10-01 2013-10-02 Outpt Diag nullFlavo [facility] [id number] Memoria 16:29:00 05:59:00 Services r Outpatient [id number] l Imaging 5 [facility] 2013-06-16 2013-06-16 OD [facility] [id number] Memoria 09:05:00 23:59:00 04 l [place] 2013-02-24 2013-02-24 OD [facility] [id number] Memoria 10:22:00 23:59:00 02 [facility] 2013-01-12 2013-01-15 OU nullFlavo [facility] [id number] Memoria 10:34:00 15:00:00 r Medical 09 l [facility] [place] 2012-08-20 2012-08-20 Emergency nullFlavo [id number] Memoria 12:27:00 13:51:00 r [place] 08 [facility] Results Test Description Test Time Test Comments Results Result Comments Source POCT HEMOGLOBIN A1C TEST 2021-11-27 14:19:00 Test Item Value Reference Range Interpretation Comme nts POCT HBA1C (test code = 4548-4) 8.0 % 4-6 A Lab Interpretation (test code = 81021-3) Abnormal NPI:[id number] HEMOGLOBIN A1C [id number] 14:19:00 Test Item Value Reference Range Interpretation Comments POCT HBA1C (test code = 4548-4) 8.0 % 4-6 A Lab Interpretation (test code = Abnormal 32414-2) NPI:[id number] 13:57:00 Test Item Value Reference Range Interpretation Comments Troponin-I (test code no gt See_Comment [Auto mated message] The = Troponin-I) system which g enerated this result transmit placido reference range : <=0.40. The reference r severo was not used to interpr et this result as jazzy l/abnormal. [facility] [id number] 11:12:00 Test Item Value Reference Range Interpretation Comments BNP (test code = BNP) [id number] 11:12:00 Test Item Value Reference Range Interpretation Comments Troponin-I (test code no gt See_Comment [Auto mated message] The = Troponin-I) system which g enerated this result transmit placido reference range : <=0.40. The reference r severo was not used to interpr et this result as jazzy l/abnormal. [facility]2019-02-17 11:12:00 Test Item Value Reference Range Interpretation Comments eGFR (test code = eGFR) 98 [facility]2019-02-17 11:12:00 Test Item Value Reference Range Interpretation Comments AST (test code = AST) 19 See_Comment [Auto mated message] The system which ge nerated this result transmit placido reference range : <=37. The reference range was not used to interpr et this result as jazzy l/abnormal. [facility]2019-02-17 11:12:00 Test Item Value Reference Range Interpretation Comments Bili Total (test code = Bili Total) 0.2 0.2-1.3 [facility]2019-02-17 11:12:00 Test Item Value Reference Range Interpretation Comments Alk Phos (test code = Alk Phos) 84 39-136 [facility]2019-02-17 11:12:00 Test Item Value Reference Range Interpretation Comments Creatinine Lvl (test code = Creatinine 0.70 0.50-1.40 Lvl) [facility]2019-02-17 11:12:00 Test Item Value Reference Range Interpretation Comments BUN (test code = BUN) 14 7-22 [facility]2019-02-17 11:12:00 Test Item Value Reference Range Interpretation Comments Glucose Lvl (test code = Glucose Lvl) 114 70-99 [facility]2019-02-17 11:12:00 Test Item Value Reference Range Interpretation Comments Albumin Lvl (test code = Albumin Lvl) 3.3 3.5-5.0 [facility]2019-02-17 11:12:00 Test Item Value Reference Range Interpretation Comments Total Protein (test code = Total 8.2 6.4-8.4 Protein) [facility]2019-02-17 11:12:00 Test Item Value Reference Range Interpretation Comments ALT (test code = ALT) 29 See_Comment [Auto mated message] The system which ge nerated this result transmit placido reference range : <=65. The reference range was not used to interpr et this result as jazzy l/abnormal. [facility]2019-02-17 11:12:00 Test Item Value Reference Range Interpretation Comments Sodium Lvl (test code = Sodium Lvl) 139 135-145 [facility]2019-02-17 11:12:00 Test Item Value Reference Range Interpretation Comments Chloride Lvl (test code = Chloride Lvl) 103 95-109 [facility]2019-02-17 11:12:00 Test Item Value Reference Range Interpretation Comments Potassium Lvl (test code = Potassium 3.5 3.5-5.1 Lvl) [facility]2019-02-17 11:12:00 Test Item Value Reference Range Interpretation Comments Calcium Lvl (test code = Calcium Lvl) 8.6 8.5-10.5 [facility]2019-02-17 11:12:00 Test Item Value Reference Range Interpretation Comments CO2 (test code = CO2) 26 24-32 [facility]2019-02-17 11:12:00 Test Item Value Reference Range Interpretation Comments B/C Ratio (test code = B/C Ratio) 20 1 6-25 [facility]2019-02-17 11:12:00 Test Item Value Reference Range Interpretation Comments A/G Ratio (test code = A/G Ratio) 0.7 1 0.7-1.6 [facility]2019-02-17 11:12:00 Test Item Value Reference Range Interpretation Comments Globulin (test code = Globulin) 4.9 2.7-4.2 [facility]2019-02-17 11:12:00 Test Item Value Reference Range Interpretation Comments AGAP (test code = AGAP) 13.5 10.0-20.0 [id number] 11:12:00 Test Item Value Reference Range Interpretation Comments hCG Tot (test code = hCG Tot) 5 [id number] 11:12:00 Test Item Value Reference Range Interpretation Comments D-Dimer (test code = D-Dimer) 0.45 [id number] 11:12:00 Test Item Value Reference Range Interpretation Comments WBC (test code = WBC) 8.2 3.7-10.4 [facility] [id number] 11:12:00 Test Item Value Reference Range Interpretation Comments Hgb (test code = Hgb) 14.1 12.0-16.0 [id number] 11:12:00 Test Item Value Reference Range Interpretation Comments RBC (test code = RBC) 4.81 4.20-5.40 [facility] [id number] 11:12:00 Test Item Value Reference Range Interpretation Comments Hct (test code = Hct) 40.8 36.0-48.0 [facility] [id number] 11:12:00 Test Item Value Reference Range Interpretation Comments MCV (test code = MCV) 84.9 80.0-98.0 [facility] [id number] 11:12:00 Test Item Value Reference Range Interpretation Comments MCH (test code = MCH) 29.4 pg 27.0-31.0 [facility] [id number] 11:12:00 Test Item Value Reference Range Interpretation Comments MCHC (test code = MCHC) 34.6 32.0-36.0 [facility] [id number] 11:12:00 Test Item Value Reference Range Interpretation Comments RDW (test code = RDW) 12.4 11.5-14.5 [facility] SouthNcoekxtVLMJYEQVFI4670-01-20 11:12:00 Test Item Value Reference Range Interpretation Comments Platelet (test code = Platelet) 234 133-450 [facility] [id number] 11:12:00 Test Item Value Reference Range Interpretation Comments MPV (test code = MPV) 9.8 7.4-10.4 [facility] [id number] 11:12:00 Test Item Value Reference Range Interpretation Comments Basophils # (test code 0.1 See_Comment [Aut omated message] The = Basophils #) system which generated this result tra nsmitted reference range : <=0.2. The reference r severo was not used to int erpret this result as normal/abnormal . [facility] [id number] 11:12:00 Test Item Value Reference Range Interpretation Comments Monocytes # (test code 0.7 See_Comment [Aut omated message] The = Monocytes #) system which generated this result tra nsmitted reference range : <=0.8. The reference r severo was not used to int erpret this result as normal/abnormal . [facility] [id number] 11:12:00 Test Item Value Reference Range Interpretation Comments Eosinophils # (test code 0.6 See_Comment [A utomated message] The = Eosinophils #) system whic h generated this result tra nsmitted reference range : <=0.5. The reference r severo was not used to int erpret this result as normal/abnormal . [id number] 11:12:00 Test Item Value Reference Range Interpretation Comments Lymphocytes (test code = Lymphocytes) 27.7 20.0-40.0 [facility] [id number] 11:12:00 Test Item Value Reference Range Interpretation Comments Segs (test code = Segs) 56.3 45.0-75.0 [facility] [id number] 11:12:00 Test Item Value Reference Range Interpretation Comments Eosinophils (test code = 6.8 See_Comment [A utomated message] The Eosinophils) system which ge nerated this result tra nsmitted reference range : <=4.0. The reference r severo was not used to int erpret this result as normal/abnormal . [facility] [id number] 11:12:00 Test Item Value Reference Range Interpretation Comments Monocytes (test code = Monocytes) 8.1 2.0-12.0 [facility] [id number] 11:12:00 Test Item Value Reference Range Interpretation Comments Lymphocytes # (test code = Lymphocytes 2.3 1.0-5.5 #) [facility] [id number] 11:12:00 Test Item Value Reference Range Interpretation Comments Basophils (test code = 1.1 See_Comment [Aut omated message] The Basophils) system which ge nerated this result tra nsmitted reference range : <=1.0. The reference r severo was not used to int erpret this result as normal/abnormal . [facility] [id number] 11:12:00 Test Item Value Reference Range Interpretation Comments Neutrophils # (test code = Neutrophils 4.6 1.5-8.1 #) [facility]2018-03-28 13:41:00 Test Item Value Reference Range Interpretation Comments eGFR (test code = eGFR) 101 [facility]2018-03-28 13:41:00 Test Item Value Reference Range Interpretation Comments Sodium Lvl (test code = Sodium Lvl) 135 135-145 [facility]2018-03-28 13:41:00 Test Item Value Reference Range Interpretation Comments Chloride Lvl (test code = Chloride Lvl) 101 95-109 [facility]2018-03-28 13:41:00 Test Item Value Reference Range Interpretation Comments Potassium Lvl (test code = Potassium 4.2 3.5-5.1 Lvl) [facility]2018-03-28 13:41:00 Test Item Value Reference Range Interpretation Comments Calcium Lvl (test code = Calcium Lvl) 8.8 8.5-10.5 [facility]2018-03-28 13:41:00 Test Item Value Reference Range Interpretation Comments CO2 (test code = CO2) 26 24-32 [facility]2018-03-28 13:41:00 Test Item Value Reference Range Interpretation Comments AGAP (test code = AGAP) 12.2 10.0-20.0 [facility]2018-03-28 13:41:00 Test Item Value Reference Range Interpretation Comments BUN (test code = BUN) 13 7-22 [facility]2018-03-28 13:41:00 Test Item Value Reference Range Interpretation Comments Glucose Lvl (test code = Glucose Lvl) 298 70-99 [facility]2018-03-28 13:41:00 Test Item Value Reference Range Interpretation Comments Creatinine Lvl (test code = Creatinine 0.63 0.50-1.40 Lvl) [facility]2017-03-14 03:56:00 Test Item Value Reference Range Interpretation Comments A/G Ratio (test code = A/G Ratio) 0.7 0.7-1.6 [facility]2017-03-14 03:56:00 Test Item Value Reference Range Interpretation Comments AGAP (test code = AGAP) 11.8 10.0-20.0 [facility]2017-03-14 03:56:00 Test Item Value Reference Range Interpretation Comments Globulin (test code = Globulin) 4.9 2.7-4.2 [facility]2017-03-14 03:56:00 Test Item Value Reference Range Interpretation Comments B/C Ratio (test code = B/C Ratio) 18 6-25 [facility]2017-03-14 03:56:00 Test Item Value Reference Range Interpretation Comments eGFR (test code = eGFR) 95 [facility]2017-03-14 03:56:00 Test Item Value Reference Range Interpretation Comments ASPARTATE TRANSAMINASE 11 See_Comment [Aut omated message] (test code = ASPARTATE The s ystem which TRANSAMINASE) generated this result transmitted ref erence range: <=37. Th e reference range was not used to interpr et this result as normal/abnormal . [place] 889977-03-14 03:56:00 Test Item Value Reference Range Interpretation Comments ALANINE AMINOTRANSFERASE 26 See_Comment [A utomated message] (test code = ALANINE The sys tem which AMINOTRANSFERASE) generated this result transmitted ref erence range: <=65. Th e reference range was not used to int erpret this result as normal/abnormal . [place] 889977-03-14 03:56:00 Test Item Value Reference Range Interpretation Comments Albumin Lvl (test code = Albumin Lvl) 3.4 3.5-5.0 [place] 889977-03-14 03:56:00 Test Item Value Reference Range Interpretation Comments Total Protein (test code = Total 8.3 6.4-8.4 Protein) [place] 889977-03-14 03:56:00 Test Item Value Reference Range Interpretation Comments Bili Total (test code = Bili Total) 0.2 0.2-1.3 [place] 889977-03-14 03:56:00 Test Item Value Reference Range Interpretation Comments CO2 (test code = CO2) 26 24-32 [place] 889977-03-14 03:56:00 Test Item Value Reference Range Interpretation Comments Chloride Lvl (test code = Chloride Lvl) 106 95-109 [place] 889977-03-14 03:56:00 Test Item Value Reference Range Interpretation Comments Calcium Lvl (test code = Calcium Lvl) 8.9 8.5-10.5 [facility]2017-03-14 03:56:00 Test Item Value Reference Range Interpretation Comments Glucose Lvl (test code = Glucose Lvl) 197 70-99 [facility]2017-03-14 03:56:00 Test Item Value Reference Range Interpretation Comments Alk Phos (test code = Alk Phos) 82 39-136 [facility]2017-03-14 03:56:00 Test Item Value Reference Range Interpretation Comments BUN (test code = BUN) 13 7-22 [facility]2017-03-14 03:56:00 Test Item Value Reference Range Interpretation Comments Potassium Lvl (test code = Potassium 3.8 3.5-5.1 Lvl) [facility]2017-03-14 03:56:00 Test Item Value Reference Range Interpretation Comments Sodium Lvl (test code = Sodium Lvl) 140 135-145 [facility]2017-03-14 03:56:00 Test Item Value Reference Range Interpretation Comments Creatinine Lvl (test code = Creatinine 0.73 0.50-1.40 Lvl) [facility] [id number] 03:56:00 Test Item Value Reference Range Interpretation Comments PROTIME (test code = PROTIME) 11.7 s 12.0-14.7 [facility] [id number] 03:56:00 Test Item Value Reference Range Interpretation Comments INR (test code = INR) 0.84 0.85-1.17 [facility] [id number] 03:56:00 Test Item Value Reference Range Interpretation Comments Hgb (test code = Hgb) 13.8 12.0-16.0 [facility] [id number] 03:56:00 Test Item Value Reference Range Interpretation Comments WBC X 10x3 (test code = WBC X 10x3) 7.8 3.7-10.4 [facility] SouthVlgtgltXHAJYLVWTM5972-79-64 03:56:00 Test Item Value Reference Range Interpretation Comments RBC X 10x6 (test code = RBC X 10x6) 4.78 4.20-5.40 [facility] SouthCbcgcuhYUUJMXWJLZ2786-86-34 03:56:00 Test Item Value Reference Range Interpretation Comments Hct (test code = Hct) 41.0 36.0-48.0 [facility] SouthRjfhjkzAROSSKCDUJ9962-88-78 03:56:00 Test Item Value Reference Range Interpretation Comments MCV (test code = MCV) 85.9 80.0-98.0 [facility] SouthOljufigWPFACAFULB9856-79-38 03:56:00 Test Item Value Reference Range Interpretation Comments MCHC (test code = MCHC) 33.6 32.0-36.0 [facility] SouthFbvzvddBDKTNXKPVR8434-79-52 03:56:00 Test Item Value Reference Range Interpretation Comments MCH (test code = MCH) 28.9 pg 27.0-31.0 [facility] SouthRtqnvuiCTKPFBRPEK3702-53-86 03:56:00 Test Item Value Reference Range Interpretation Comments Platelet (test code = Platelet) 204 133-450 [facility] Sou[id number] 03:56:00 Test Item Value Reference Range Interpretation Comments RDW (test code = RDW) 12.7 11.5-14.5 [facility] SouthHmpyhjcDXHDUHRSUG6809-43-31 03:56:00 Test Item Value Reference Range Interpretation Comments MPV (test code = MPV) 9.8 7.4-10.4 [facility] SouthNkbetqvHLPISLWXYS2304-82-30 03:56:00 Test Item Value Reference Range Interpretation Comments Basophils # (test code 0.1 See_Comment [Aut omated message] The = Basophils #) system which generated this result tra nsmitted reference range : <=0.2. The reference r severo was not used to int erpret this result as normal/abnormal . [facility] SouthSnqrrpaSQUETCQOVZ3099-65-14 03:56:00 Test Item Value Reference Range Interpretation Comments Basophils (test code = 0.7 See_Comment [Aut omated message] The Basophils) system which ge nerated this result tra nsmitted reference range : <=1.0. The reference r severo was not used to int erpret this result as normal/abnormal . [facility] SouthLucxzdqLOHTNKXURJ2842-21-14 03:56:00 Test Item Value Reference Range Interpretation Comments Eosinophils # (test code 0.3 See_Comment [A utomated message] The = Eosinophils #) system whic h generated this result tra nsmitted reference range : <=0.5. The reference r severo was not used to int erpret this result as normal/abnormal . [facility] SouthUnmixfaLRNRXTZBGG6192-40-54 03:56:00 Test Item Value Reference Range Interpretation Comments Lymphocytes # (test code = Lymphocytes 3.0 1.0-5.5 #) [facility] SouthZejznvbPDVXLZHEGU1999-43-99 03:56:00 Test Item Value Reference Range Interpretation Comments Segs-Bands # (test code = Segs-Bands #) 3.9 1.5-8.1 [facility] [id number] 03:56:00 Test Item Value Reference Range Interpretation Comments Monocytes # (test code 0.5 See_Comment [Aut omated message] The = Monocytes #) system which generated this result tra nsmitted reference range : <=0.8. The reference r severo was not used to int erpret this result as normal/abnormal . [facility] SouthZokwkndNBKPTBEBUN6577-00-88 03:56:00 Test Item Value Reference Range Interpretation Comments Segs (test code = Segs) 49.9 45.0-75.0 [facility] SouthXsajuqtJIUQCUJRGD6026-21-17 03:56:00 Test Item Value Reference Range Interpretation Comments Eosinophils (test code = 3.8 See_Comment [A utomated message] The Eosinophils) system which ge nerated this result tra nsmitted reference range : <=4.0. The reference r severo was not used to int erpret this result as normal/abnormal . [facility] [id number] 03:56:00 Test Item Value Reference Range Interpretation Comments Monocytes (test code = Monocytes) 6.9 2.0-12.0 [facility] [id number] 03:56:00 Test Item Value Reference Range Interpretation Comments Lymphocytes (test code = Lymphocytes) 38.7 20.0-40.0 [facility] AND [id number] 03:02:00 Test Item Value Reference Range Interpretation Comments UA Bacteria (test code = UA Occasional /HPF Bacteria) [facility] AND [id number] 03:02:00 Test Item Value Reference Range Interpretation Comments UA Blood (test code = Trace *ABN*(10/14/16 UA Blood) 10:02 PM) [facility] AND [id number] 03:02:00 Test Item Value Reference Range Interpretation Comments UA Urobilinogen (test code = UA 0.2 0.1-1.0 Urobilinogen) [facility] AND [id number] 03:02:00 Test Item Value Reference Range Interpretation Comments UA Bili (test code = Negative *NA*(10/14/16 UA Bili) 10:02 PM) [facility] [id number] 03:02:00 Test Item Value Reference Range Interpretation Comments UA Nitrite (test code Negative (10/14/16 10:02 = UA Nitrite) PM) [facility] AND [id number] 03:02:00 Test Item Value Reference Range Interpretation Comments UA WBC (test code = UA WBC) 0-2 /HPF [facility] AND [id number] 03:02:00 Test Item Value Reference Range Interpretation Comments UA Sq Epi (test code = UA Sq Occasional /LPF Epi) [facility] AND [id number] 03:02:00 Test Item Value Reference Range Interpretation Comments UA Leuk Est (test Negative (10/14/16 10:02 code = UA Leuk Est) PM) [facility] AND [id number] 03:02:00 Test Item Value Reference Range Interpretation Comments UA RBC (test code = 0-2 /HPF See_Comment [Automa placido message] The UA RBC) system which ge nerated this result tra nsmitted reference range : <=2. The reference range was not used to interpr et this result as jazzy l/abnormal. [facility] AND [id number] 03:02:00 Test Item Value Reference Range Interpretation Comments UA Ketones (test code Negative *NA*(10/14/16 = UA Ketones) 10:02 PM) [facility] AND [id number] 03:02:00 Test Item Value Reference Range Interpretation Comments UA Glucose (test code = UA >=1000 mg/dL Glucose) [facility] AND [id number] 03:02:00 Test Item Value Reference Range Interpretation Comments UA Protein (test code Negative (10/14/16 10:02 = UA Protein) PM) [facility] AND [id number] 03:02:00 Test Item Value Reference Range Interpretation Comments UA pH (test code = UA pH) 7.0 1 5.0-8.0 [facility] [id number] 03:02:00 Test Item Value Reference Range Interpretation Comments UA Spec Grav (test code = UA Spec 1.010 1 Grav) [facility] [id number] 03:02:00 Test Item Value Reference Range Interpretation Comments UA Turbidity (test code = Clear (10/14/16 10:02 UA Turbidity) PM) [facility] AND [id number] 03:02:00 Test Item Value Reference Range Interpretation Comments UA Color (test code = Light Yellow (10/14/16 UA Color) 10:02 PM) [facility]2015-11-21 22:32:00 Test Item Value Reference Range Interpretation Comments Lactic Acid Lvl (test code = Lactic 1.6 0.5-2.2 Acid Lvl) [facility]2015-11-21 19:02:00 Test Item Value Reference Range Interpretation Comments Magnesium Lvl (test code = Magnesium 2.0 1.8-2.4 Lvl) [facility]2015-11-21 19:02:00 Test Item Value Reference Range Interpretation Comments B/C Ratio (test code = B/C Ratio) 14 6-25 [facility]2015-11-21 19:02:00 Test Item Value Reference Range Interpretation Comments AGAP (test code = AGAP) 11.8 10.0-20.0 [facility]2015-11-21 19:02:00 Test Item Value Reference Range Interpretation Comments Globulin (test code = Globulin) 4.8 2.0-4.0 [facility]2015-11-21 19:02:00 Test Item Value Reference Range Interpretation Comments A/G Ratio (test code = A/G Ratio) 0.7 0.7-1.6 [facility]2015-11-21 19:02:00 Test Item Value Reference Range Interpretation Comments eGFR (test code = eGFR) 100 [facility]2015-11-21 19:02:00 Test Item Value Reference Range Interpretation Comments Alk Phos (test code = Alk Phos) 82 39-136 [facility]2015-11-21 19:02:00 Test Item Value Reference Range Interpretation Comments Bili Total (test code = Bili Total) 0.3 0.2-1.3 [facility]2015-11-21 19:02:00 Test Item Value Reference Range Interpretation Comments Albumin Lvl (test code = Albumin Lvl) 3.4 3.5-5.0 [facility]2015-11-21 19:02:00 Test Item Value Reference Range Interpretation Comments AST (test code = AST) 18 See_Comment [Auto mated message] The system which ge nerated this result transmit placido reference range : <=37. The reference range was not used to interpr et this result as jazzy l/abnormal. [facility]2015-11-21 19:02:00 Test Item Value Reference Range Interpretation Comments ALT (test code = ALT) 34 See_Comment [Auto mated message] The system which ge nerated this result transmit placido reference range : <=65. The reference range was not used to interpr et this result as jazzy l/abnormal. [facility]2015-11-21 19:02:00 Test Item Value Reference Range Interpretation Comments BUN (test code = BUN) 10 7-22 [facility]2015-11-21 19:02:00 Test Item Value Reference Range Interpretation Comments Chloride Lvl (test code = Chloride Lvl) 104 95-109 [facility]2015-11-21 19:02:00 Test Item Value Reference Range Interpretation Comments Creatinine Lvl (test code = Creatinine 0.70 0.50-1.40 Lvl) [facility]2015-11-21 19:02:00 Test Item Value Reference Range Interpretation Comments Potassium Lvl (test code = Potassium 3.8 3.5-5.1 Lvl) [facility]2015-11-21 19:02:00 Test Item Value Reference Range Interpretation Comments Sodium Lvl (test code = Sodium Lvl) 138 135-145 [facility]2015-11-21 19:02:00 Test Item Value Reference Range Interpretation Comments Glucose Lvl (test code = Glucose Lvl) 110 70-99 [facility]2015-11-21 19:02:00 Test Item Value Reference Range Interpretation Comments Calcium Lvl (test code = Calcium Lvl) 9.0 8.5-10.5 [facility]2015-11-21 19:02:00 Test Item Value Reference Range Interpretation Comments CO2 (test code = CO2) 26 24-32 [facility]2015-11-21 19:02:00 Test Item Value Reference Range Interpretation Comments Total Protein (test code = Total 8.2 6.4-8.4 Protein) [facility]2015-11-21 19:02:00 Test Item Value Reference Range Interpretation Comments Lipase Lvl (test code = Lipase Lvl) 107 73-393 [facility] [id number] 19:02:00 Test Item Value Reference Range Interpretation Comments Segs (test code = Segs) 61.2 45.0-75.0 [facility] [id number] 19:02:00 Test Item Value Reference Range Interpretation Comments Lymphocytes (test code = Lymphocytes) 26.6 20.0-40.0 [facility] [id number] 19:02:00 Test Item Value Reference Range Interpretation Comments Basophils # (test code 0.1 See_Comment [Aut omated message] The = Basophils #) system which generated this result tra nsmitted reference range : <=0.2. The reference r severo was not used to int erpret this result as normal/abnormal . [facility] [id number] 19:02:00 Test Item Value Reference Range Interpretation Comments Eosinophils # (test code 0.6 See_Comment [A utomated message] The = Eosinophils #) system whic h generated this result tra nsmitted reference range : <=0.5. The reference r severo was not used to int erpret this result as normal/abnormal . [facility] [id number] 19:02:00 Test Item Value Reference Range Interpretation Comments Basophils (test code = 0.8 See_Comment [Aut omated message] The Basophils) system which ge nerated this result tra nsmitted reference range : <=1.0. The reference r severo was not used to int erpret this result as normal/abnormal . [facility] [id number] 19:02:00 Test Item Value Reference Range Interpretation Comments Monocytes (test code = Monocytes) 6.0 2.0-12.0 [facility] [id number] 19:02:00 Test Item Value Reference Range Interpretation Comments Segs-Bands # (test code = Segs-Bands #) 6.6 1.5-8.1 [facility] [id number] 19:02:00 Test Item Value Reference Range Interpretation Comments Lymphocytes # (test code = Lymphocytes 2.9 1.0-5.5 #) [facility] [id number] 19:02:00 Test Item Value Reference Range Interpretation Comments Eosinophils (test code = 5.4 See_Comment [A utomated message] The Eosinophils) system which ge nerated this result tra nsmitted reference range : <=4.0. The reference r severo was not used to int erpret this result as normal/abnormal . [facility] [id number] 19:02:00 Test Item Value Reference Range Interpretation Comments Monocytes # (test code 0.6 See_Comment [Aut omated message] The = Monocytes #) system which generated this result tra nsmitted reference range : <=0.8. The reference r severo was not used to int erpret this result as normal/abnormal . [facility] [id number] 19:02:00 Test Item Value Reference Range Interpretation Comments MPV (test code = MPV) 9.8 7.4-10.4 [facility] [id number] 19:02:00 Test Item Value Reference Range Interpretation Comments Platelet (test code = Platelet) 226 133-450 [facility] [id number] 19:02:00 Test Item Value Reference Range Interpretation Comments RDW (test code = RDW) 12.4 11.5-14.5 [facility] [id number] 19:02:00 Test Item Value Reference Range Interpretation Comments MCHC (test code = MCHC) 32.3 32.0-36.0 [facility] [id number] 19:02:00 Test Item Value Reference Range Interpretation Comments MCV (test code = MCV) 87.5 80.0-98.0 [facility] [id number] 19:02:00 Test Item Value Reference Range Interpretation Comments MCH (test code = MCH) 28.2 pg 27.0-31.0 [facility] [id number] 19:02:00 Test Item Value Reference Range Interpretation Comments Hct (test code = Hct) 43.4 36.0-48.0 [facility] [id number] 19:02:00 Test Item Value Reference Range Interpretation Comments Hgb (test code = Hgb) 14.0 12.0-16.0 [facility] [id number] 19:02:00 Test Item Value Reference Range Interpretation Comments RBC (test code = RBC) 4.97 4.20-5.40 [facility] [id number] 19:02:00 Test Item Value Reference Range Interpretation Comments WBC (test code = WBC) 10.8 3.7-10.4 [facility] [id number] 19:02:00 Test Item Value Reference Range Interpretation Comments PTT (test code = PTT) 26.3 s 22.9-35.8 [facility] [id number] 19:02:00 Test Item Value Reference Range Interpretation Comments INR (test code = INR) 0.98 0.85-1.17 [facility] [id number] 19:02:00 Test Item Value Reference Range Interpretation Comments PT (test code = PT) 13.3 s 12.0-14.7 [facility] AND [id number] 19:02:00 Test Item Value Reference Range Interpretation Comments UA Urobilinogen (test code = UA <=1.0 mg/dL 0.1-1.0 Urobilinogen) [facility] [id number] 19:02:00 Test Item Value Reference Range Interpretation Comments UA Color (test code = UA Color) Colorless [facility] AND [id number] 19:02:00 Test Item Value Reference Range Interpretation Comments UA WBC (test code = 6 See_Comment [Automa placido message] The UA WBC) system which ge nerated this result transmit placido reference range : <=5. The reference range was not used to interpr et this result as jazzy l/abnormal. [facility] AND [id number] 19:02:00 Test Item Value Reference Range Interpretation Comments UA Bacteria (test code = UA Occasional /HPF Bacteria) [facility] AND [id number] 19:02:00 Test Item Value Reference Range Interpretation Comments UA RBC (test code = 1 See_Comment [Automa placido message] The UA RBC) system which ge nerated this result transmit placido reference range : <=2. The reference range was not used to interpr et this result as jazzy l/abnormal. [facility] AND [id number] 19:02:00 Test Item Value Reference Range Interpretation Comments UA pH (test code = UA pH) 6.0 5.0-8.0 [facility] AND [id number] 19:02:00 Test Item Value Reference Range Interpretation Comments UA Spec Grav (test code = UA Spec Grav) 1.020 [facility] AND [id number] 19:02:00 Test Item Value Reference Range Interpretation Comments UA Turbidity (test code = Clear (06/24/15 1:02 UA Turbidity) PM) [facility] AND [id number] 19:02:00 Test Item Value Reference Range Interpretation Comments UA Leuk Est (test code Small *ABN*(06/24/15 = UA Leuk Est) 1:02 PM) [facility] AND [id number] 19:02:00 Test Item Value Reference Range Interpretation Comments UA Protein (test code = UA Negative mg/dL Protein) [facility] AND [id number] 19:02:00 Test Item Value Reference Range Interpretation Comments UA Sq Epi (test code = UA Sq Occasional /LPF Epi) [facility] AND [id number] 19:02:00 Test Item Value Reference Range Interpretation Comments UA Nitrite (test code Negative (06/24/15 1:02 = UA Nitrite) PM) [facility] AND [id number] 19:02:00 Test Item Value Reference Range Interpretation Comments UA Bili (test code = Negative *NA*(06/24/15 UA Bili) 1:02 PM) [facility] AND [id number] 19:02:00 Test Item Value Reference Range Interpretation Comments UA Blood (test code = Small *ABN*(06/24/15 UA Blood) 1:02 PM) [facility] AND [id number] 19:02:00 Test Item Value Reference Range Interpretation Comments UA Ketones (test code = UA Negative mg/dL Ketones) [facility] AND [id number] 19:02:00 Test Item Value Reference Range Interpretation Comments UA Glucose (test code = UA Glucose) 150 mg/dL [facility] AND [id number] 19:02:00 Test Item Value Reference Range Interpretation Comments Occult Bld Stl (test Negative (06/24/15 1:02 code = Occult Bld Stl) PM) [facility]2015-11-17 10:10:00 Test Item Value Reference Range Interpretation Comments eGFR (test code = eGFR) 105 [facility]2015-11-17 10:10:00 Test Item Value Reference Range Interpretation Comments Sodium Lvl (test code = Sodium Lvl) 139 135-145 [facility]2015-11-17 10:10:00 Test Item Value Reference Range Interpretation Comments Potassium Lvl (test code = Potassium 4.0 3.5-5.1 Lvl) [facility]2015-11-17 10:10:00 Test Item Value Reference Range Interpretation Comments BUN (test code = BUN) 13 7-22 [facility]2015-11-17 10:10:00 Test Item Value Reference Range Interpretation Comments Creatinine Lvl (test code = Creatinine 0.61 0.50-1.40 Lvl) [facility]2015-11-17 10:10:00 Test Item Value Reference Range Interpretation Comments Glucose Lvl (test code = Glucose Lvl) 73 70-99 [facility]2015-11-17 10:10:00 Test Item Value Reference Range Interpretation Comments Chloride Lvl (test code = Chloride Lvl) 108 95-109 [facility]2015-11-17 10:10:00 Test Item Value Reference Range Interpretation Comments CO2 (test code = CO2) 24 24-32 [facility]2015-11-17 10:10:00 Test Item Value Reference Range Interpretation Comments Calcium Lvl (test code = Calcium Lvl) 8.0 8.5-10.5 [facility]2015-11-17 10:10:00 Test Item Value Reference Range Interpretation Comments AGAP (test code = AGAP) 11.0 10.0-20.0 [facility]PrxuzahGZMCWXGQOL3713-12-27 10:10:00 Test Item Value Reference Range Interpretation Comments Platelet (test code = Platelet) 180 133-450 [facility] [id number] 10:10:00 Test Item Value Reference Range Interpretation Comments MPV (test code = MPV) 9.8 7.4-10.4 [facility] SouthRcgwpxsVJUWFGUNQF0062-86-46 10:10:00 Test Item Value Reference Range Interpretation Comments RDW (test code = RDW) 12.4 11.5-14.5 [facility] SouthDyxrpewCXDFTSEIEQ7378-36-00 10:10:00 Test Item Value Reference Range Interpretation Comments RBC (test code = RBC) 4.42 4.20-5.40 [facility] SouthOxjalxjERKXUUMPNX9154-10-55 10:10:00 Test Item Value Reference Range Interpretation Comments Hgb (test code = Hgb) 12.6 12.0-16.0 [facility] SouthJageajhVVCCVRAWQA0338-39-31 10:10:00 Test Item Value Reference Range Interpretation Comments MCV (test code = MCV) 89.2 80.0-98.0 [facility] SouthOopadbhTGOATJNIHY0228-49-13 10:10:00 Test Item Value Reference Range Interpretation Comments MCH (test code = MCH) 28.5 pg 27.0-31.0 [facility] SouthXfphuuaWTVPVDFCOF3235-57-04 10:10:00 Test Item Value Reference Range Interpretation Comments MCHC (test code = MCHC) 31.9 32.0-36.0 [facility] SouthZmpcrbmOISYCJOYPP5719-53-52 10:10:00 Test Item Value Reference Range Interpretation Comments Hct (test code = Hct) 39.5 36.0-48.0 [facility] SouthGisnswcWNOVASKJBV4513-75-43 10:10:00 Test Item Value Reference Range Interpretation Comments WBC (test code = WBC) 8.2 3.7-10.4 [facility] SouthYazuenrOGYLFPMLVA1621-59-85 10:10:00 Test Item Value Reference Range Interpretation Comments Basophils (test code = 0.8 See_Comment [Aut omated message] The Basophils) system which ge nerated this result tra nsmitted reference range : <=1.0. The reference r severo was not used to int erpret this result as normal/abnormal . [facility] SouthRrtfuzlHYUVIDBOPJ3697-94-24 10:10:00 Test Item Value Reference Range Interpretation Comments Segs (test code = Segs) 56.4 45.0-75.0 [facility] SouthYpskvdsJVBGAMOQPE4736-57-18 10:10:00 Test Item Value Reference Range Interpretation Comments Lymphocytes (test code = Lymphocytes) 31.9 20.0-40.0 [facility] SouthFznfqyuCAHDTMKMPW7334-89-22 10:10:00 Test Item Value Reference Range Interpretation Comments Monocytes (test code = Monocytes) 6.8 2.0-12.0 [facility] SouthJcoaruhYGWMLKLOMZ2431-54-80 10:10:00 Test Item Value Reference Range Interpretation Comments Eosinophils (test code = 4.1 See_Comment [A utomated message] The Eosinophils) system which ge nerated this result tra nsmitted reference range : <=4.0. The reference r severo was not used to int erpret this result as normal/abnormal . [facility] SouthZrkabijTLUUCWEAIZ6791-14-22 10:10:00 Test Item Value Reference Range Interpretation Comments Segs-Bands # (test code = Segs-Bands #) 4.6 1.5-8.1 [facility] SouthFgafagmHASGYXUJPM3650-32-70 10:10:00 Test Item Value Reference Range Interpretation Comments Lymphocytes # (test code = Lymphocytes 2.6 1.0-5.5 #) [facility] SouthUcslnadISAXOLPMGU6067-51-57 10:10:00 Test Item Value Reference Range Interpretation Comments Monocytes # (test code 0.6 See_Comment [Aut omated message] The = Monocytes #) system which generated this result tra nsmitted reference range : <=0.8. The reference r severo was not used to int erpret this result as normal/abnormal . [facility] SouthAuoordqEVDWHIHIGE9107-85-21 10:10:00 Test Item Value Reference Range Interpretation Comments Eosinophils # (test code 0.3 See_Comment [A utomated message] The = Eosinophils #) system whic h generated this result tra nsmitted reference range : <=0.5. The reference r severo was not used to int erpret this result as normal/abnormal . [facility] SouthXutmsixYJLWGUQVNK2992-21-06 10:10:00 Test Item Value Reference Range Interpretation Comments Basophils # (test code 0.1 See_Comment [Aut omated message] The = Basophils #) system which generated this result tra nsmitted reference range : <=0.2. The reference r severo was not used to int erpret this result as normal/abnormal . [facility]2015-11-16 17:33:00 Test Item Value Reference Range Interpretation Comments Phosphorus (test code = Phosphorus) 3.3 2.5-4.5 [facility] [id number] 17:33:00 Test Item Value Reference Range Interpretation Comments Magnesium Lvl (test code = Magnesium 2.0 1.8-2.4 Lvl) [facility]2015-11-16 17:33:00 Test Item Value Reference Range Interpretation Comments Lipase Lvl (test code = Lipase Lvl) 122 73-393 [facility]2015-11-16 17:33:00 Test Item Value Reference Range Interpretation Comments Amylase Lvl (test code = Amylase Lvl) 36 25-115 [facility]2015-11-16 17:33:00 Test Item Value Reference Range Interpretation Comments A/G Ratio (test code = A/G Ratio) 0.7 0.7-1.6 [facility]2015-11-16 17:33:00 Test Item Value Reference Range Interpretation Comments B/C Ratio (test code = B/C Ratio) 24 6-25 [facility]2015-11-16 17:33:00 Test Item Value Reference Range Interpretation Comments AGAP (test code = AGAP) 11.4 10.0-20.0 [facility]2015-11-16 17:33:00 Test Item Value Reference Range Interpretation Comments Globulin (test code = Globulin) 4.6 2.0-4.0 [facility]2015-11-16 17:33:00 Test Item Value Reference Range Interpretation Comments eGFR (test code = eGFR) 71 [facility]2015-11-16 17:33:00 Test Item Value Reference Range Interpretation Comments Creatinine Lvl (test code = Creatinine 0.93 0.50-1.40 Lvl) [facility]2015-11-16 17:33:00 Test Item Value Reference Range Interpretation Comments BUN (test code = BUN) 22 7-22 [facility]2015-11-16 17:33:00 Test Item Value Reference Range Interpretation Comments Glucose Lvl (test code = Glucose Lvl) 121 70-99 [facility]2015-11-16 17:33:00 Test Item Value Reference Range Interpretation Comments Potassium Lvl (test code = Potassium 3.4 3.5-5.1 Lvl) [facility]2015-11-16 17:33:00 Test Item Value Reference Range Interpretation Comments Sodium Lvl (test code = Sodium Lvl) 135 135-145 [facility]2015-11-16 17:33:00 Test Item Value Reference Range Interpretation Comments Total Protein (test code = Total 7.8 6.4-8.4 Protein) [facility]2015-11-16 17:33:00 Test Item Value Reference Range Interpretation Comments Calcium Lvl (test code = Calcium Lvl) 8.8 8.5-10.5 [facility]2015-11-16 17:33:00 Test Item Value Reference Range Interpretation Comments CO2 (test code = CO2) 25 24-32 [facility]2015-11-16 17:33:00 Test Item Value Reference Range Interpretation Comments Chloride Lvl (test code = Chloride Lvl) 102 95-109 [facility]2015-11-16 17:33:00 Test Item Value Reference Range Interpretation Comments Alk Phos (test code = Alk Phos) 79 39-136 [facility]2015-11-16 17:33:00 Test Item Value Reference Range Interpretation Comments AST (test code = AST) 18 See_Comment [Auto mated message] The system which ge nerated this result transmit placido reference range : <=37. The reference range was not used to interpr et this result as jazzy l/abnormal. [facility]2015-11-16 17:33:00 Test Item Value Reference Range Interpretation Comments ALT (test code = ALT) 26 See_Comment [Auto mated message] The system which ge nerated this result transmit placido reference range : <=65. The reference range was not used to interpr et this result as jazzy l/abnormal. [place] 889975-11-16 17:33:00 Test Item Value Reference Range Interpretation Comments Albumin Lvl (test code = Albumin Lvl) 3.2 3.5-5.0 [place] 889975-11-16 17:33:00 Test Item Value Reference Range Interpretation Comments Bili Total (test code = Bili Total) 0.3 0.2-1.3 [facility] SouthZsertfpJQCNDKCVXI2012-09-30 17:33:00 Test Item Value Reference Range Interpretation Comments Monocytes (test code = Monocytes) 7.3 2.0-12.0 [facility] SouthZzuryxrHVQZLAHTQZ1222-23-39 17:33:00 Test Item Value Reference Range Interpretation Comments Segs-Bands # (test code = Segs-Bands #) 6.5 1.5-8.1 [facility] SouthKisliknYEHKUKZSRP9779-94-61 17:33:00 Test Item Value Reference Range Interpretation Comments Basophils (test code = 1.1 See_Comment [Aut omated message] The Basophils) system which ge nerated this result tra nsmitted reference range : <=1.0. The reference r severo was not used to int erpret this result as normal/abnormal . [facility] SouthUzjwjhxAZRPUFLWQS5950-66-67 17:33:00 Test Item Value Reference Range Interpretation Comments Eosinophils (test code = 2.5 See_Comment [A utomated message] The Eosinophils) system which ge nerated this result tra nsmitted reference range : <=4.0. The reference r severo was not used to int erpret this result as normal/abnormal . [facility] SouthUcuijivWROHNHKHQD5446-03-69 17:33:00 Test Item Value Reference Range Interpretation Comments Monocytes # (test code 0.8 See_Comment [Aut omated message] The = Monocytes #) system which generated this result tra nsmitted reference range : <=0.8. The reference r severo was not used to int erpret this result as normal/abnormal . [facility] SouthDbiymfnVTANTQZGFU2748-80-75 17:33:00 Test Item Value Reference Range Interpretation Comments Lymphocytes # (test code = Lymphocytes 3.5 1.0-5.5 #) [facility] SouthQfchgkxSMKXFGYKBM4740-83-28 17:33:00 Test Item Value Reference Range Interpretation Comments Segs (test code = Segs) 57.7 45.0-75.0 [facility] SouthKgihhvvBMVYIBUFEU1353-16-26 17:33:00 Test Item Value Reference Range Interpretation Comments Basophils # (test code 0.1 See_Comment [Aut omated message] The = Basophils #) system which generated this result tra nsmitted reference range : <=0.2. The reference r severo was not used to int erpret this result as normal/abnormal . [facility] SouthYilbfqvYNFLBTPVBK1511-61-59 17:33:00 Test Item Value Reference Range Interpretation Comments Eosinophils # (test code 0.3 See_Comment [A utomated message] The = Eosinophils #) system whic h generated this result tra nsmitted reference range : <=0.5. The reference r severo was not used to int erpret this result as normal/abnormal . [facility] SouthNsedecmJYZQZGNVVT8939-96-28 17:33:00 Test Item Value Reference Range Interpretation Comments Lymphocytes (test code = Lymphocytes) 31.4 20.0-40.0 [facility] SouthDyeocsvWUYXVXAURC9645-15-48 17:33:00 Test Item Value Reference Range Interpretation Comments Hgb (test code = Hgb) 13.6 12.0-16.0 [facility] SouthOgarbuvRUSBUJCIDP8495-37-85 17:33:00 Test Item Value Reference Range Interpretation Comments Platelet (test code = Platelet) 218 133-450 [facility] SouthPgcvywbRZCYFBSKVG1431-41-26 17:33:00 Test Item Value Reference Range Interpretation Comments RDW (test code = RDW) 12.4 11.5-14.5 [facility] SouthJenkbqaDPHEEPJVJP0307-68-13 17:33:00 Test Item Value Reference Range Interpretation Comments MCHC (test code = MCHC) 32.1 32.0-36.0 [facility] SouthFqgrxkuNVSLPMHENV5545-25-39 17:33:00 Test Item Value Reference Range Interpretation Comments Hct (test code = Hct) 42.3 36.0-48.0 [facility] SouthHgdndptCSIWSZZFEB4340-73-69 17:33:00 Test Item Value Reference Range Interpretation Comments WBC (test code = WBC) 11.3 3.7-10.4 [facility] SouthRgjhnhuJFWXFQDENF0119-69-61 17:33:00 Test Item Value Reference Range Interpretation Comments MCH (test code = MCH) 28.2 pg 27.0-31.0 [facility] SouthLhshuqiWSYHCCFOOP2910-40-72 17:33:00 Test Item Value Reference Range Interpretation Comments MCV (test code = MCV) 87.8 80.0-98.0 [facility] SouthNynbdkiLJLMXMJRFY2225-42-66 17:33:00 Test Item Value Reference Range Interpretation Comments RBC (test code = RBC) 4.82 4.20-5.40 [facility] SouthPxhyotgRSOUBTDBDM0331-03-54 17:33:00 Test Item Value Reference Range Interpretation Comments MPV (test code = MPV) 9.8 7.4-10.4 [facility] [id number] 17:33:00 Test Item Value Reference Range Interpretation Comments UA Urobilinogen (test code = UA <=1.0 mg/dL 0.1-1.0 Urobilinogen) [facility] AND [id number] 17:33:00 Test Item Value Reference Range Interpretation Comments UA Leuk Est (test Negative (06/19/15 11:33 code = UA Leuk Est) AM) [facility] AND [id number] 17:33:00 Test Item Value Reference Range Interpretation Comments UA Bacteria (test code = UA Many /HPF Bacteria) [facility] AND [id number] 17:33:00 Test Item Value Reference Range Interpretation Comments UA WBC (test code = 81 See_Comment [Automa placido message] The UA WBC) system which ge nerated this result transmit placido reference range : <=5. The reference range was not used to interpr et this result as jazzy l/abnormal. [facility] AND [id number] 17:33:00 Test Item Value Reference Range Interpretation Comments UA Sq Epi (test code = UA Sq Epi) Few /LPF [facility] AND [id number] 17:33:00 Test Item Value Reference Range Interpretation Comments UA Nitrite (test code Negative (06/19/15 = UA Nitrite) 11:33 AM) [facility] AND [id number] 17:33:00 Test Item Value Reference Range Interpretation Comments UA Mucus (test code = UA Mucus) Many /LPF [facility] AND [id number] 17:33:00 Test Item Value Reference Range Interpretation Comments UA Protein (test code = UA Negative mg/dL Protein) [facility] AND [id number] 17:33:00 Test Item Value Reference Range Interpretation Comments UA Glucose (test code = UA Glucose) 500 mg/dL [facility] AND [id number] 17:33:00 Test Item Value Reference Range Interpretation Comments UA pH (test code = UA pH) 5.0 5.0-8.0 [facility] AND [id number] 17:33:00 Test Item Value Reference Range Interpretation Comments UA Spec Grav (test code = UA Spec Grav) 1.035 [facility] AND [id number] 17:33:00 Test Item Value Reference Range Interpretation Comments UA Bili (test code = Negative *NA*(06/19/15 UA Bili) 11:33 AM) [facility] AND [id number] 17:33:00 Test Item Value Reference Range Interpretation Comments UA Ketones (test code = UA Negative mg/dL Ketones) [facility] [id number] 17:33:00 Test Item Value Reference Range Interpretation Comments UA Blood (test code = Negative (06/19/15 11:33 UA Blood) AM) [facility] AND [id number] 17:33:00 Test Item Value Reference Range Interpretation Comments UA Turbidity (test code Marked *ABN*(06/19/15 = UA Turbidity) 11:33 AM) [facility] AND [id number] 17:33:00 Test Item Value Reference Range Interpretation Comments UA Color (test code = Yellow *NA*(06/19/15 UA Color) 11:33 AM) [facility] CenterHstuyhjGAVIKNUXQ2309-21-87 03:30:47 Test Item Value Reference Range Interpretation Comments U Amph Scr (test code Negative *NA*(01/12/2013 = U Amph Scr) 22:30:47) [facility] CenterOkcotjiVGQHRRYMO2840-69-27 03:30:47 Test Item Value Reference Range Interpretation Comments UDS Note (test code = See Note 3(01/12/2013 N UDS Note) 22:30:47) [facility] CenterEkgvzveNDHXFCRKI0885-11-16 03:30:47 Test Item Value Reference Range Interpretation Comments U Cocaine Scr (test Negative code = U Cocaine Scr) *NA*(01/12/2013 22:30:47) [facility] CenterMhzrijiNJJUGEBTQ3012-01-08 03:30:47 Test Item Value Reference Range Interpretation Comments U Cannab Scr (test Negative code = U Cannab Scr) *NA*(01/12/2013 22:30:47) [facility] CenterKyypvutXEHKFNQMK5917-27-04 03:30:47 Test Item Value Reference Range Interpretation Comments U Opiate Scr (test Positive A code = U Opiate Scr) *ABN*(01/12/2013 22:30:47) [facility] CenterRbbkzrhDKKNZGJWS7300-63-64 03:30:47 Test Item Value Reference Range Interpretation Comments U Phencyc Scr (test Negative code = U Phencyc Scr) *NA*(01/12/2013 22:30:47) [facility] CenterLbswndqRVAZUCDGU2983-23-95 03:30:47 Test Item Value Reference Range Interpretation Comments U Joie Scr (test code Negative *NA*(01/12/2013 = U Joie Scr) 22:30:47) [facility] CenterCxgdwakTATMBENZT9057-40-31 03:30:47 Test Item Value Reference Range Interpretation Comments U Benzodia Scr (test Positive A code = U Benzodia Scr) *ABN*(01/12/2013 22:30:47) [facility] CenterWktawxyTXTAZZDUXG9761-99-22 16:34:00 Test Item Value Reference Range Interpretation Comments CDC-HIV 1/2 Ab (test Negative *NA*(01/12/2013 code = CDC-HIV 1/2 11:34:00) Ab) [facility] CenterDswruqqPAAUSSAKX9346-13-53 15:57:00 Test Item Value Reference Range Interpretation Comments Creatinine Lvl (test code = Creatinine 0.7 0.5-1.4 N Lvl) [facility] CenterOqvtixbITDIRDPYL3144-70-09 15:57:00 Test Item Value Reference Range Interpretation Comments BUN (test code = BUN) 11 7-22 N [facility] CenterZcisblcWEHGQTBHU7331-99-85 15:57:00 Test Item Value Reference Range Interpretation Comments Sodium Lvl (test code = Sodium Lvl) 137 135-145 [facility]VhfxwvzLABTJBTNX2580-42-98 15:57:00 Test Item Value Reference Range Interpretation Comments AGAP (test code = AGAP) 19.6 10.0-20.0 [facility] HospitalHvnqrnlXGMDDLLUB7298-95-36 15:57:00 Test Item Value Reference Range Interpretation Comments Calcium Lvl (test code = Calcium Lvl) 8.8 8.5-10.5 [facility] HospitalAeeghtgLPCDWIVNX6661-72-76 15:57:00 Test Item Value Reference Range Interpretation Comments Chloride Lvl (test code = Chloride Lvl) 100 95-109 [facility] HospitalAtlvmudXCVAGJONR8288-11-29 15:57:00 Test Item Value Reference Range Interpretation Comments Potassium Lvl (test code = Potassium 4.6 3.5-5.1 N Lvl) [facility] CenterJkvjxqnKXVBBIUOM9150-14-90 15:57:00 Test Item Value Reference Range Interpretation Comments CO2 (test code = CO2) 22 24-32 [id number] 15:57:00 Test Item Value Reference Range Interpretation Comments eGFR (test code = eGFR) 101 [id number] 15:57:00 Test Item Value Reference Range Interpretation Comments Glucose Lvl (test code = Glucose Lvl) 239 70-99 [facility] GLUCOSE [id number] 18:46:00 Test Item Value Reference Range Interpretation Comments Gluc POC Lifsc[facility] (test code = Gluc POC no gt 70-99 A [facility]) [facility] GLUCOSE [id number] 18:46:00 Test Item Value Reference Range Interpretation Comments Comment1 (test code = Assess patient Comment1) [facility]
[2021-12-10] MEDS ORDERED: TETANUS & DIPHTHERIA TOX,ADULT 0.5 ML VIAL ONE (16:48)
--- NOTE | 2021-12-10 18:08 | RAD REPORT ---
EXAM DESCRIPTION: RAD - Hand Right 3 View - 12/10/2021 6:02 pm CLINICAL HISTORY: ANIMAL BITE COMPARISON: No comparisons FINDINGS: Soft tissue swelling affects the second finger. No fracture or radiopaque foreign body see n.
--- NOTE | 2021-12-10 18:18 | ER ---
Nurse's Notes [facility] Name: Yun Hawley Age: 61 yrs Sex: Female : 1960 Arrival Date: 12/10/2021 Time: 14:24 Bed DIS2 Private MD: Diagnosis: Bitten by dog Presentation: 12/10 15:17 Chief complaint: Patient states: got bitten by her dog on Friday night to right index iw finger, now looks red, and tender. Coronavirus screen: At this time, the client does not indicate any symptoms associated with coronavirus-19. Ebola Screen: Patient negative for fever greater than or equal to 101.5 degrees Fahrenheit, and additional compatible Ebola Virus Disease symptoms Patient denies exposure to infectious person. Patient denies travel to an Ebola-affected area in the 21 days before illness onset. No symptoms or risks identified at this time. Initial Sepsis Screen: Does the patient meet any 2 criteria? No. Patient's initial sepsis screen is negative. Does the patient have a suspected source of infection? No. Patient's initial sepsis screen is negative. Risk Assessment: Do you want to hurt yourself or someone else? Patient reports no desire to harm self or others. Onset of symptoms was December 08, 2021. 15:17 Method Of Arrival: Ambulatory iw 15:17 Acuity: CHARITY 4 iw Historical: - Allergies: 15:19 Adhesives; iw 15:19 Codeine; iw 15:19 Latex, Natural Rubber; iw - PMHx: 15:19 4 compressed fx of the back; Charcomarie tooth; Diabetes - IDDM; iw - Immunization history:: Last tetanus immunization: unknown. - Social history:: Smoking status: Patient denies any tobacco usage or history of. Patient/guardian denies using alcohol. Screenin:34 Abuse screen: Denies threats or abuse. Denies injuries from another. Nutritional ld1 screening: No deficits noted. Tuberculosis screening: No symptoms or risk factors identified. Fall Risk None identified. Assessment: 18:34 Reassessment: See triage assessment. General: Appears in no apparent distress. ld1 comfortable, Behavior is calm, cooperative, appropriate for age. Neuro: Level of Consciousness is awake, alert, obeys commands, Oriented to person, place, time, situation. Respiratory: Airway is patent Respiratory effort is even, unlabored. Vital Signs: 15:17 BP 106 / 71; Pulse 81; Resp 16; Temp 98.3; Pulse Ox 97% on R/A; iw 18:34 BP 111 / 72; Pulse 76; Resp 18; Pulse Ox 98% on R/A; ld1 ED Course: 14:24 Patient arrived in ED. as 15:14 Greta Bridges FNP is [facility] 15:14 Yong Lou MD is Attending Physician. [facility] 15:19 Triage completed. iw 15:19 Arm band placed on. iw 16:35 Renay Hussein, RN is Primary Nurse. iw 18:01 XRAY Hand RIGHT 3 View In Process Unspecified. EDMS 18:34 Patient has correct armband on for positive identification. Placed in gown. Bed in low ld1 position. Call light in reach. Side rails up X2. Pulse ox on. NIBP on. Door closed. Noise minimized. 18:34 No provider procedures requiring assistance completed. Patient did not have IV access ld1 during this emergency room visit. Administered Medications: 16:57 Drug: Tetanus-Diphtheria Toxoid Adult 0.5 ml {Track Equipment Operator: [employer]. Exp: iw 01/06/2022. Lot #: [id number]. } Route: IM; Site: right deltoid; 17:15 Follow up: Response: No adverse reaction Outcome: 18:17 Discharge ordered by . [facility] 18:34 Discharged to home ambulatory. ld1 18:34 Condition: stable 18:34 Discharge instructions given to patient, Instructed on discharge instructions, follow up and referral plans. medication usage, Demonstrated understanding of instructions, follow-up care, medications, Prescriptions given X 1. 18:35 Patient left the ED. ld1 Signatures: Dispatcher [employer] Izzy Aparicio Irene, RN RN Lisbet Neely RN RN ld1 Greta Bridges FNP [place] [id number]
--- NOTE | 2021-12-10 18:18 | EDPHYS ---
Physician Documentation [facility] Name: Yun Hawley Age: 61 yrs Sex: Female : 1960 Arrival Date: 12/10/2021 Time: 14:24 Bed DIS2 Private MD: ED Physician Yong Lou HPI: 12/10 20:30 This 61 yrs old Female presents to ER via Ambulatory with complaints of Dog Bite - jh7 finger swelling/redness. 20:30 The patient was bitten on the right hand, by a dog, while playing, at home. Onset: The jh7 symptoms/episode began/occurred Friday night. Animal information: Animal's vaccinations are up to date. Patient presents for bite wound of the right index finger. The patient states that Friday night she was playing with her dog, and that the dog accidentally bit her finger thinking it was a toy. States that her finger is painful, and slightly red. States she is concerned about infection since she is a diabetic.. Historical: - Allergies: 15:19 Adhesives; iw 15:19 Codeine; iw 15:19 Latex, Natural Rubber; iw - PMHx: 15:19 4 compressed fx of the back; Charcomarie tooth; Diabetes - IDDM; iw - Immunization history:: Last tetanus immunization: unknown. - Social history:: Smoking status: Patient denies any tobacco usage or history of. Patient/guardian denies using alcohol. ROS: 20:30 Cardiovascular: Negative for chest pain, palpitations, and edema, Respiratory: Negative jh7 for shortness of breath, cough, wheezing, and pleuritic chest pain, Abdomen/GI: Negative for abdominal pain, nausea, vomiting, diarrhea, and constipation, Back: Negative for injury and pain, Neuro: Negative for headache, weakness, numbness, tingling, and seizure. 20:30 MS/extremity: Positive for bite, pain, Negative for decreased range of motion, deformity. 20:30 Skin: Positive for puncture, swelling, Negative for erythema. 20:30 All other systems are negative. Exam: 20:30 Constitutional: This is a well developed, well nourished patient who is awake, alert, jh7 and in no acute distress. Cardiovascular: Regular rate and rhythm with a normal S1 and S2. No gallops, murmurs, or rubs. Normal PMI, no JVD. No pulse deficits. Respiratory: Lungs have equal breath sounds bilaterally, clear to auscultation and percussion. No rales, rhonchi or wheezes noted. No increased work of breathing, no retractions or nasal flaring. Abdomen/GI: Soft, non-tender, with normal bowel sounds. No distension or tympany. No guarding or rebound. No evidence of tenderness throughout. Neuro: Awake and alert, GCS 15, oriented to person, place, time, and situation. Normal gait. 20:30 Musculoskeletal/extremity: ROM: intact in all extremities, Mild pain with flexion of the right second digit., Circulation is intact in all extremities. Sensation intact. 20:30 Skin: injury, puncture(s), that are superficial, of the right hand, 3 puncture wounds on the right index finger distal to the DIP. There is very mild erythema present around the punctures and the area is tender to palpation. No drainage, induration, or streaking around the wounds.. Vital Signs: 15:17 BP 106 / 71; Pulse 81; Resp 16; Temp 98.3; Pulse Ox 97% on R/A; iw 18:34 BP 111 / 72; Pulse 76; Resp 18; Pulse Ox 98% on R/A; ld1 MDM: 16:14 Patient medically screened. [facility] 20:30 Differential diagnosis: superficial laceration, cellulitis. Data reviewed: vital signs, [facility] nurses notes, radiologic studies, plain films. Data interpreted: Pulse oximetry: is 98 %. Interpretation: normal. Counseling: I had a detailed discussion with the patient and/or guardian regarding: the historical points, exam findings, and any diagnostic results supporting the discharge/admit diagnosis, to return to the emergency department if symptoms worsen or persist or if there are any questions or concerns that arise at home. ED course: Patient's x-ray was negative for fracture. She remained stable throughout her ER visit. She was prescribed Augmentin, and advised to take the medication as directed. If she develops increased redness, swelling, drainage, or fever, she is to return to the ER for further eval. The patient understood the plan of care.. 12/10 16:29 Order name: XRAY Hand RIGHT 3 View; Complete Time: 18:14 [facility] Administered Medications: 16:57 Drug: Tetanus-Diphtheria Toxoid Adult 0.5 ml {Senior Analytic Consultant: [employer]. Exp: iw 01/06/2022. Lot #: [id number]. } Route: IM; Site: right deltoid; 17:15 Follow up: Response: No adverse reaction Disposition Summary: 12/10/21 18:17 Discharge Ordered Location: Home [facility] Problem: new [facility] Symptoms: are unchanged [facility] Condition: Stable [facility] Diagnosis - Bitten by dog [facility] Followup: [facility] - With: Private Physician - When: 2 - 3 days - Reason: Discharge Instructions: - Discharge Summary Sheet [facility] - Animal Bite, Adult [facility] Forms: - Medication Reconciliation Form [facility] - Thank You Letter [facility] - Antibiotic Education [facility] - Prescription Opioid Use [facility] Prescriptions: - Augmentin 875-125 mg Oral Tablet - take 1 tablet by ORAL route every 12 hours for 10 days; 20 tablet; Refills: 0, jh7 Product Selection Permitted Signatures: Dispatcher [employer] Renay Evans RN RN Lisbet Neely RN RN 1 Greta Bridges FNP [facility]
[2021-12-10 21:38] VITALS: TEMP 98.3
[2021-12-10 21:39] VITALS: BP 111/72; O2SAT 98
== END 2021-12-10 18:35 | disposition home or self-care (01) ==
LOC: ER 14:22
DX: S61.230A Puncture wound without foreign body of right index finger without damage to nail, initial encounter (principal); W54.0XXA Bitten by dog, initial encounter; E11.9 Type 2 diabetes mellitus without complications; Z23 Encounter for immunization; Z88.5 Allergy status to narcotic agent; Z91.040 Latex allergy status; Z91.048 Other nonmedicinal substance allergy status
CPT/HCPCS: 90471; 90714; 99284

== ENCOUNTER 2023-02-06 22:38 | Emergency (ER) | payer OTHER ==
--- OUTSIDE RECORDS SUMMARY | 2023-02-06 23:21 | XMS REPORT | Continuity of Care Document ---
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 fluticasone 2022- Yes [id number] 1{puff} Inhale 1 [facility] propion-ilana 6-13 Puff in ity o f meteroL 00:00: the 00 morning Medical mcg/actuati and 1 Puff Br anch on AePB in the evening. albuterol 2022- Yes [id number] 2.5mg Inhale 3 Univers 2.5 mg /3 6-13 mL every 4 ity of mL (0.083 00:00: (four) [place] %) 00 hours as Medical nebulizer needed for Bran ch solution Wheezing or Shortness of Breath. fluticasone 2022-0 Yes [id number] 1{puff} Inhale 1 [facility] propion-ilana 6-13 Puff in ity o f meteroL 00:00: the 113-14 00 morning Medical mcg/actuati and 1 Puff Br anch on AePB in the evening. albuterol 2022-0 Yes [id number] 2.5mg Inhale 3 Univers 2.5 mg /3 6-13 mL every 4 ity of mL (0.083 00:00: (four) [place] %) 00 hours as Medical nebulizer needed for Bran ch solution Wheezing or Shortness of Breath. fluticasone 2022-0 Yes [id number] 1{puff} Inhale 1 [facility] propion-ilana 6-13 Puff in ity o f meteroL 00:00: the morning Medical mcg/actuati and 1 Puff Br anch on AePB in the evening. albuterol 2022-0 Yes [id number] 2.5mg Inhale 3 Univers 2.5 mg /3 6-13 mL every 4 ity of mL (0.083 00:00: (four) [place] %) 00 hours as Medical nebulizer needed for Bran ch solution Wheezing or Shortness of Breath. fluticasone 2022-0 Yes [id number] 1{puff} Inhale 1 [facility] propion-ilana 6-13 Puff in ity o f meteroL 00:00: the 00 morning Medical mcg/actuati and 1 Puff Br anch on AePB in the evening. albuterol 2022-0 Yes [id number] 2.5mg Inhale 3 Univers 2.5 mg /3 6-13 mL every 4 ity of mL (0.083 00:00: (four) [place] %) 00 hours as Medical nebulizer needed for Bran ch solution Wheezing or Shortness of Breath. fluticasone 2022-0 Yes [id number] 1{puff} Inhale 1 [facility] propion-ilana 6-13 Puff in ity o f meteroL 00:00: the 00 morning Medical mcg/actuati and 1 Puff Br anch on AePB in the evening. HYDROXYZINE 2023-0 Yes [id number] TAKE ONE [facility] 25 mg 5-31 TABLET BY ity of tablet 00:00: MOUTH [place] 00 EVERY 8 Medical HOURS Branch NEEDED FOR ANXIETY OR NASAL CONGESTION HYDROXYZINE 2023-0 Yes [id number] TAKE ONE [facility] 25 mg 5-31 TABLET BY ity of tablet 00:00: MOUTH [place] 00 EVERY 8 Medical HOURS Branch NEEDED FOR ANXIETY OR NASAL CONGESTION HYDROXYZINE 2023-0 Yes [id number] TAKE ONE [facility] 25 mg 5-31 TABLET BY ity of tablet 00:00: MOUTH [place] 00 EVERY 8 Medical HOURS Branch NEEDED FOR ANXIETY OR NASAL CONGESTION HYDROXYZINE 2023-0 Yes [id number] TAKE ONE [facility] 25 mg 5-31 TABLET BY ity of tablet 00:00: MOUTH [place] 00 EVERY 8 Medical HOURS Branch NEEDED FOR ANXIETY OR NASAL CONGESTION HYDROXYZINE 2023-0 Yes [id number] TAKE ONE [facility] 25 mg 5-31 TABLET BY ity of tablet 00:00: MOUTH [place] 00 EVERY 8 Medical HOURS Branch NEEDED FOR ANXIETY OR NASAL CONGESTION HYDROXYZINE 2023-0 Yes [id number] TAKE ONE [facility] 25 mg 5-31 TABLET BY ity of tablet 00:00: MOUTH [place] 00 EVERY 8 Medical HOURS Branch NEEDED FOR ANXIETY OR NASAL CONGESTION HYDROXYZINE 2023-0 Yes [id number] TAKE ONE [facility] 25 mg 5-31 TABLET BY ity of tablet 00:00: MOUTH [place] 00 EVERY 8 Medical HOURS Branch NEEDED FOR ANXIETY OR NASAL CONGESTION HYDROXYZINE 2023-0 Yes [id number] TAKE ONE [facility] 25 mg 5-31 TABLET BY ity of tablet 00:00: MOUTH [place] 00 EVERY 8 Medical HOURS Branch NEEDED FOR ANXIETY OR NASAL CONGESTION LISINOPRIL- 2023-0 Yes [id number] TAKE ONE Univers HYDROCHLORO 5-30 TABLET BY ity of THIAZIDE 00:00: MOUTH [place] 10-12.5 mg 00 EVERY Medical per tablet MORNING Branch LISINOPRIL- 2023-0 Yes [id number] TAKE ONE Univers HYDROCHLORO 5-30 TABLET BY ity of THIAZIDE 00:00: MOUTH [place] 10-12.5 mg 00 EVERY Medical per tablet MORNING Branch LISINOPRIL- 2023-0 Yes [id number] TAKE ONE Univers HYDROCHLORO 5-30 TABLET BY ity of THIAZIDE 00:00: MOUTH [place] 10-12.5 mg 00 EVERY Medical per tablet MORNING Branch LISINOPRIL- 2023-0 Yes [id number] TAKE ONE [facility] HYDROCHLORO 5-30 TABLET BY ity of THIAZIDE 00:00: MOUTH [place] 10-12.5 mg 00 EVERY Medical per tablet MORNING Branch LISINOPRIL- 2022-0 Yes [id number] TAKE ONE Univers HYDROCHLORO 5-30 TABLET BY ity of THIAZIDE 00:00: MOUTH [place] 10-12.5 mg 00 EVERY Medical per tablet MORNING Branch LISINOPRIL- 2022-0 Yes [id number] TAKE ONE Univers HYDROCHLORO 5-30 TABLET BY ity of THIAZIDE 00:00: MOUTH [place] 10-12.5 mg 00 EVERY Medical per tablet MORNING Branch LISINOPRIL- 2022-0 Yes [id number] TAKE ONE Univers HYDROCHLORO 5-30 TABLET BY ity of THIAZIDE 00:00: MOUTH [place] 10-12.5 mg 00 EVERY Medical per tablet MORNING Branch LISINOPRIL- 2022-0 Yes [id number] TAKE ONE Univers HYDROCHLORO 5-30 TABLET BY ity of THIAZIDE 00:00: MOUTH [place] 10-12.5 mg 00 EVERY Medical per tablet MORNING Branch SIMVASTATIN 2022-0 Yes [id number] TAKE ONE [facility] 20 mg 5-27 TABLET BY ity of tablet 00:00: MOUTH AT [place] [facility] SIMVASTATIN 2023-0 Yes [id number] TAKE ONE [facility] 20 mg 5-27 TABLET BY ity of tablet 00:00: MOUTH AT [address] SIMVASTATIN 2023-0 Yes [id number] TAKE ONE [facility] 20 mg 5-27 TABLET BY ity of tablet 00:00: MOUTH AT [address] SIMVASTATIN 2023-0 Yes [id number] TAKE ONE [facility] 20 mg 5-27 TABLET BY ity of tablet 00:00: MOUTH AT [address] SIMVASTATIN 2023-0 Yes [id number] TAKE ONE [facility] 20 mg 5-27 TABLET BY ity of tablet 00:00: MOUTH AT [place] [facility] SIMVASTATIN 2023-0 Yes [id number] TAKE ONE [facility] 20 mg 5-27 TABLET BY ity of tablet 00:00: MOUTH AT [address] SIMVASTATIN 2023-0 Yes [id number] TAKE ONE [facility] 20 mg 5-27 TABLET BY ity of tablet 00:00: MOUTH AT [address] SIMVASTATIN 2023-0 Yes [id number] TAKE ONE [facility] 20 mg 5-27 TABLET BY ity of tablet 00:00: MOUTH AT [address] [facility] SIMVASTATIN 2022-0 Yes [id number] TAKE ONE [facility] 20 mg 5-27 TABLET BY ity of tablet 00:00: MOUTH AT [place] BEDTIME [facility] SIMVASTATIN 2022-0 Yes [id number] TAKE ONE [facility] 20 mg 5-27 TABLET BY ity of tablet 00:00: MOUTH AT [place] 00 BEDTIME Medical Branch lisinopriL 2022-0 Yes Univers 10 mg 4-21 ity of tablet 00:00: [place] Medical Branch lisinopriL 2022-0 Yes Univers 10 mg 4-21 ity of tablet 00:00: [place] Medical Branch lisinopriL 2022-0 Yes Univers 10 mg 4-21 ity of tablet 00:00: [place] [address] Medical Branch lisinopriL 2022-0 Yes Univers 10 mg 4-21 ity of tablet 00:00: [place] [address] Medical Branch lisinopriL 2022-0 3- No Univer s 10 mg 4-21 05-30 ity of tablet 00:00: 00:00 [place] 00 :00 Medical Branch lisinopriL 2022-0 3- No Univer s 10 mg 4-21 05-30 ity of tablet 00:00: 00:00 [place] 00 :00 [facility] Branch ketorolac 2022-0 2022- No 30mg 30 mg, Unive rs (TORADOL) 11-10- Intramuscu ity of injection 03:45: 03:00 [place], ONCE, [place] 30 mg 00 :00 1 dose, On Medical Fri11/09/22 Branch at 2245, Routine ketorolac 2022-0 2022- No 30mg 30 mg, Unive rs (TORADOL) 11-06-05 Intramuscu ity of injection 21:15: 20:16 [place], ONCE, [place] 30 mg 00 :00 1 dose, On Medical 11/06/22 Branch at 1615, TAYLA BUPROPION 2022-0 Yes [id number] TAKE ONE [facility] XL 300 mg 3-31 TABLET BY ity o f 24 hr 00:00: MOUTH [place] tablet 00 DAILY Medical Branch BUPROPION 2022-0 Yes [id number] TAKE ONE [facility] XL 300 mg 3-31 TABLET BY ity o f 24 hr 00:00: MOUTH [place] tablet 00 DAILY Medical Branch BUPROPION 2023-0 Yes [id number] TAKE ONE [facility] XL 300 mg 3-31 TABLET BY ity o f 24 hr 00:00: MOUTH [place] tablet 00 DAILY Medical Branch BUPROPION 2023-0 Yes [id number] TAKE ONE [facility] XL 300 mg 3-31 TABLET BY ity o f 24 hr 00:00: MOUTH [place] tablet 00 DAILY Medical Branch BUPROPION 2023-0 Yes [id number] TAKE ONE [facility] XL 300 mg 3-31 TABLET BY ity o f 24 hr 00:00: MOUTH [place] tablet 00 DAILY Medical Branch BUPROPION 2023-0 Yes [id number] TAKE ONE [facility] XL 300 mg 3-31 TABLET BY ity o f 24 hr 00:00: MOUTH [place] tablet 00 DAILY Medical Branch BUPROPION 2023-0 Yes [id number] TAKE ONE [facility] XL 300 mg 3-31 TABLET BY ity o f 24 hr 00:00: MOUTH [place] tablet 00 DAILY Medical Branch BUPROPION 2023-0 Yes [id number] TAKE ONE [facility] XL 300 mg 3-31 TABLET BY ity o f 24 hr 00:00: MOUTH [place] tablet 00 DAILY Medical Branch BUPROPION 2023-0 Yes [id number] TAKE ONE [facility] XL 300 mg 3-31 TABLET BY ity o f 24 hr 00:00: MOUTH [place] tablet 00 DAILY Medical Branch BUPROPION 2023-0 Yes [id number] TAKE ONE [facility] XL 300 mg 3-31 TABLET BY ity o f 24 hr 00:00: MOUTH [place] tablet 00 DAILY Medical Branch BUPROPION 2023-0 Yes [id number] TAKE ONE [facility] XL 300 mg 3-31 TABLET BY ity o f 24 hr 00:00: MOUTH [place] tablet 00 DAILY Medical Branch BUPROPION 2023-0 Yes [id number] TAKE ONE [facility] XL 300 mg 3-31 TABLET BY ity o f 24 hr 00:00: MOUTH [place] tablet 00 DAILY Medical Branch BUPROPION 2023-0 Yes [id number] TAKE ONE [facility] XL 300 mg 3-31 TABLET BY ity o f 24 hr 00:00: MOUTH [place] tablet 00 DAILY Medical Branch BUPROPION 2023-0 Yes [id number] TAKE ONE [facility] XL 300 mg 3-31 TABLET BY ity o f 24 hr 00:00: MOUTH [place] tablet 00 DAILY Medical Branch BUPROPION 2023-0 Yes [id number] TAKE ONE [facility] XL 300 mg 3-31 TABLET BY ity o f 24 hr 00:00: MOUTH [place] tablet 00 DAILY Medical Branch BUPROPION 2022-0 Yes [id number] TAKE ONE [facility] XL 300 mg 3-31 TABLET BY ity o f 24 hr 00:00: MOUTH [place] tablet 00 DAILY Medical Branch BUPROPION 2022-0 Yes [id number] TAKE ONE [facility] XL 300 mg 3-31 TABLET BY ity o f 24 hr 00:00: MOUTH [place] tablet 00 DAILY Medical Branch BUPROPION 2022-0 Yes [id number] TAKE ONE [facility] XL 300 mg 3-31 TABLET BY ity o f 24 hr 00:00: MOUTH [place] tablet 00 DAILY Medical Branch BUPROPION 2022-0 Yes [id number] TAKE ONE [facility] XL 300 mg 3-31 TABLET BY ity o f 24 hr 00:00: MOUTH [place] tablet 00 DAILY Medical Branch BUPROPION 2022-0 2022- No [id number] TAKE ONE [facility] XL 300 mg 3-31 06-27 TABLET BY ity of 24 hr 00:00: 00:00 MOUTH [place] tablet 00 :00 DAILY Medical Branch montelukast 2022-0 Yes [id number] 10mg Take 1 Univers 10 mg 3-08 tablet by ity of tablet 00:00: mouth in [place] 00 the Medical morning. Branch montelukast 2022-0 Yes [id number] 10mg Take 1 [facility] 10 mg 3-08 tablet by ity of tablet 00:00: mouth in [place] 00 the Medical morning. Branch montelukast 2022-0 Yes [id number] 10mg Take 1 Univers 10 mg 3-08 tablet by ity of tablet 00:00: mouth in [place] 00 the Medical morning. Branch montelukast 2022-0 Yes [id number] 10mg Take 1 Univers 10 mg 3-08 tablet by ity of tablet 00:00: mouth in [place] 00 the Medical morning. Branch montelukast 2022-0 Yes [id number] 10mg Take 1 Univers 10 mg 3-08 tablet by ity of tablet 00:00: mouth in [place] 00 the Medical morning. Branch montelukast 2022-0 Yes [id number] 10mg Take 1 [facility] 10 mg 3-08 tablet by ity of tablet 00:00: mouth in [place] 00 the Medical morning. Branch montelukast 2022-0 Yes [id number] 10mg Take 1 [facility] 10 mg 3-08 tablet by ity of tablet 00:00: mouth in [place] 00 the Medical morning. Branch montelukast 3-0 Yes [id number] 10mg Take 1 [facility] 10 mg 3-08 tablet by ity of tablet 00:00: mouth in [place] 00 the Medical morning. Branch montelukast 3-0 Yes [id number] 10mg Take 1 [facility] 10 mg 3-08 tablet by ity of tablet 00:00: mouth in [place] 00 the Medical morning. Branch montelukast 3-0 Yes [id number] 10mg Take 1 [facility] 10 mg 3-08 tablet by ity of tablet 00:00: mouth in [place] 00 the Medical morning. Branch montelukast 3-0 Yes [id number] 10mg Take 1 [facility] 10 mg 3-08 tablet by ity of tablet 00:00: mouth in [place] 00 the Medical morning. Branch montelukast 3-0 Yes [id number] 10mg Take 1 [facility] 10 mg 3-08 tablet by ity of tablet 00:00: mouth in [place] 00 the Medical morning. Branch montelukast 2022-0 Yes [id number] 10mg Take 1 [facility] 10 mg 3-08 tablet by ity of tablet 00:00: mouth in [place] 00 the Medical morning. Branch montelukast 2022-0 Yes [id number] 10mg Take 1 [facility] 10 mg 3-08 tablet by ity of tablet 00:00: mouth in [place] 00 the Medical morning. Branch montelukast 2022-0 Yes [id number] 10mg Take 1 [facility] 10 mg 3-08 tablet by ity of tablet 00:00: mouth in [place] 00 the Medical morning. Branch montelukast 3-0 Yes [id number] 10mg Take 1 [facility] 10 mg 3-08 tablet by ity of tablet 00:00: mouth in [place] 00 the Medical morning. Branch montelukast 3-0 Yes [id number] 10mg Take 1 [facility] 10 mg 3-08 tablet by ity of tablet 00:00: mouth in [place] 00 the Medical morning. Branch montelukast 3-0 Yes [id number] 10mg Take 1 [facility] 10 mg 3-08 tablet by ity of tablet 00:00: mouth in [place] 00 the Medical morning. Branch montelukast 3-0 Yes [id number] 10mg Take 1 [facility] 10 mg 3-08 tablet by ity of tablet 00:00: mouth in [place] 00 the Medical morning. Branch montelukast 2023-0 Yes [id number] 10mg Take 1 [facility] 10 mg 3-08 tablet by ity of tablet 00:00: mouth in [place] 00 the Medical morning. Branch montelukast 2022-0 Yes [id number] 10mg Take 1 Univers 10 mg 3-08 tablet by ity of tablet 00:00: mouth in [place] 00 the Medical morning. Branch montelukast 2022-0 Yes [id number] 10mg Take 1 [facility] 10 mg 3-08 tablet by ity of tablet 00:00: mouth in [place] 00 the Medical morning. Branch FREESTYLE 2022-0 Yes [id number] USE Un gray LISANDRO 14 3-04 DIRECTED ity of DAY SENSOR 00:00: AND CHANGE [place] 00 EVERY 14 Medical DAYS Branch FREESTYLE 2022-0 Yes [id number] USE Un gray LISANDRO 14 3-04 DIRECTED ity of DAY SENSOR 00:00: AND CHANGE [place] Kit 00 EVERY 14 Medical DAYS Branch FREESTYLE 2022-0 Yes [id number] USE Un gray LISANDRO 14 3-04 DIRECTED ity of DAY SENSOR 00:00: AND CHANGE [place] Kit 00 EVERY 14 Medical DAYS Branch FREESTYLE 2022-0 Yes [id number] USE Un gray LISANDRO 14 3-04 DIRECTED ity of DAY SENSOR 00:00: AND CHANGE [place] Kit 00 EVERY 14 Medical DAYS Branch FREESTYLE 2022-0 Yes [id number] USE Un gray LISANDRO 14 3-04 DIRECTED ity of DAY SENSOR 00:00: AND CHANGE [place] Kit 00 EVERY 14 Medical DAYS Branch FREESTYLE 2022-0 Yes [id number] USE Un gray LISANDRO 14 3-04 DIRECTED ity of DAY SENSOR 00:00: AND CHANGE [place] Kit 00 EVERY 14 Medical DAYS Branch FREESTYLE 2022-0 Yes [id number] USE Un gray LISANDRO 14 3-04 DIRECTED ity of DAY SENSOR 00:00: AND CHANGE [place] Kit 00 EVERY 14 Medical DAYS Branch FREESTYLE 2022-0 Yes [id number] USE Un gray LISANDRO 14 3-04 DIRECTED ity of DAY SENSOR 00:00: AND CHANGE [place] Kit 00 EVERY 14 Medical DAYS Branch FREESTYLE 2022-0 Yes [id number] USE Un gray LISANDRO 14 3-04 DIRECTED ity of DAY SENSOR 00:00: AND CHANGE [place] Kit 00 EVERY 14 Medical DAYS Branch FREESTYLE 2022-0 Yes [id number] USE Un gray LISANDRO 14 3-04 DIRECTED ity of DAY SENSOR 00:00: AND CHANGE [place] Kit 00 EVERY 14 Medical DAYS Branch FREESTYLE 2022-0 Yes [id number] USE Un gray LISANDRO 14 3-04 DIRECTED ity of DAY SENSOR 00:00: AND CHANGE [place] Kit 00 EVERY 14 Medical DAYS Branch FREESTYLE 2022-0 Yes [id number] USE Un gray LISANDRO 14 3-04 DIRECTED ity of DAY SENSOR 00:00: AND CHANGE [place] Kit 00 EVERY 14 Medical DAYS Branch FREESTYLE 2022-0 Yes [id number] USE Un gray LISANDRO 14 3-04 DIRECTED ity of DAY SENSOR 00:00: AND CHANGE [place] Kit 00 EVERY 14 Medical DAYS Branch FREESTYLE 2022-0 Yes [id number] USE Un gray LISANDRO 14 3-04 DIRECTED ity of DAY SENSOR 00:00: AND CHANGE [place] Kit 00 EVERY 14 Medical DAYS Branch FREESTYLE 2022-0 Yes [id number] USE Un gray LISANDRO 14 3-04 DIRECTED ity of DAY SENSOR 00:00: AND CHANGE [place] Kit 00 EVERY 14 Medical DAYS Branch FREESTYLE 2022-0 Yes [id number] USE Un gray LISANDRO 14 3-04 DIRECTED ity of DAY SENSOR 00:00: AND CHANGE [place] Kit 00 EVERY 14 Medical DAYS Branch FREESTYLE 2022-0 Yes [id number] USE Un gray LISANDRO 14 3-04 DIRECTED ity of DAY SENSOR 00:00: AND CHANGE [place] Kit 00 EVERY 14 Medical DAYS Branch FREESTYLE 2022-0 Yes [id number] USE Un gray LISANDRO 14 3-04 DIRECTED ity of DAY SENSOR 00:00: AND CHANGE [place] Kit 00 EVERY 14 Medical DAYS Branch FREESTYLE 2022-0 Yes [id number] USE Un gray LISANDRO 14 3-04 DIRECTED ity of DAY SENSOR 00:00: AND CHANGE [place] Kit 00 EVERY 14 Medical DAYS Branch FREESTYLE 2022-0 Yes [id number] USE Un gray LISANDRO 14 3-04 DIRECTED ity of DAY SENSOR 00:00: AND CHANGE [place] Kit 00 EVERY 14 Medical DAYS Branch FREESTYLE 2023-0 Yes [id number] USE Un gray LISANDRO 14 3-04 DIRECTED ity of DAY SENSOR 00:00: AND CHANGE [place] Kit 00 EVERY 14 Medical DAYS Branch FREESTYLE 2023-0 Yes [id number] USE Un gray LISANDRO 14 3-04 DIRECTED ity of DAY SENSOR 00:00: AND CHANGE [place] Kit 00 EVERY 14 Medical DAYS Branch FREESTYLE 2023-0 Yes [id number] USE Un gray LISANDRO 14 3-04 DIRECTED ity of DAY SENSOR 00:00: AND CHANGE [place] Kit 00 EVERY 14 Medical DAYS Branch HYDROXYZINE 2023-0 Yes [id number] TAKE ONE Univers 25 mg 3-03 TABLET BY ity of tablet 00:00: MOUTH [place] 00 EVERY 8 Medical HOURS Branch NEEDED FOR ANXIETY OR NASAL CONGESTION HYDROXYZINE 2023-0 Yes [id number] TAKE ONE Univers 25 mg 3-03 TABLET BY ity of tablet 00:00: MOUTH [place] 00 EVERY 8 Medical HOURS Branch NEEDED FOR ANXIETY OR NASAL CONGESTION HYDROXYZINE 2023-0 Yes [id number] TAKE ONE Univers 25 mg 3-03 TABLET BY ity of tablet 00:00: MOUTH [place] 00 EVERY 8 Medical HOURS Branch NEEDED FOR ANXIETY OR NASAL CONGESTION HYDROXYZINE 2023-0 Yes [id number] TAKE ONE [facility] 25 mg 3-03 TABLET BY ity of tablet 00:00: MOUTH [place] 00 EVERY 8 Medical HOURS Branch NEEDED FOR ANXIETY OR NASAL CONGESTION HYDROXYZINE 2023-0 Yes [id number] TAKE ONE Univers 25 mg 3-03 TABLET BY ity of tablet 00:00: MOUTH [place] 00 EVERY 8 Medical HOURS Branch NEEDED FOR ANXIETY OR NASAL CONGESTION HYDROXYZINE 2023-0 Yes [id number] TAKE ONE Univers 25 mg 3-03 TABLET BY ity of tablet 00:00: MOUTH [place] 00 EVERY 8 Medical HOURS Branch NEEDED FOR ANXIETY OR NASAL CONGESTION HYDROXYZINE 2023-0 Yes [id number] TAKE ONE Univers 25 mg 3-03 TABLET BY ity of tablet 00:00: MOUTH [place] 00 EVERY 8 Medical HOURS Branch NEEDED FOR ANXIETY OR NASAL CONGESTION HYDROXYZINE 2023-0 Yes [id number] TAKE ONE Univers 25 mg 3-03 TABLET BY ity of tablet 00:00: MOUTH [place] 00 EVERY 8 Medical HOURS Branch NEEDED FOR ANXIETY OR NASAL CONGESTION HYDROXYZINE 2023-0 Yes [id number] TAKE ONE Univers 25 mg 3-03 TABLET BY ity of tablet 00:00: MOUTH [place] 00 EVERY 8 Medical HOURS Branch NEEDED FOR ANXIETY OR NASAL CONGESTION HYDROXYZINE 2023-0 Yes [id number] TAKE ONE [facility] 25 mg 3-03 TABLET BY ity of tablet 00:00: MOUTH [place] 00 EVERY 8 Medical HOURS Branch NEEDED FOR ANXIETY OR NASAL CONGESTION HYDROXYZINE 2023-0 Yes [id number] TAKE ONE [facility] 25 mg 3-03 TABLET BY ity of tablet 00:00: MOUTH [place] 00 EVERY 8 Medical HOURS Branch NEEDED FOR ANXIETY OR NASAL CONGESTION HYDROXYZINE 2023-0 Yes [id number] TAKE ONE Univers 25 mg 3-03 TABLET BY ity of tablet 00:00: MOUTH [place] 00 EVERY 8 Medical HOURS Branch NEEDED FOR ANXIETY OR NASAL CONGESTION HYDROXYZINE 2023-0 Yes [id number] TAKE ONE [facility] 25 mg 3-03 TABLET BY ity of tablet 00:00: MOUTH [place] 00 EVERY 8 Medical HOURS Branch NEEDED FOR ANXIETY OR NASAL CONGESTION HYDROXYZINE 2023-0 Yes [id number] TAKE ONE [facility] 25 mg 3-03 TABLET BY ity of tablet 00:00: MOUTH [place] 00 EVERY 8 Medical HOURS Branch NEEDED FOR ANXIETY OR NASAL CONGESTION HYDROXYZINE 2023-0 Yes [id number] TAKE ONE [facility] 25 mg 3-03 TABLET BY ity of tablet 00:00: MOUTH [place] 00 EVERY 8 Medical HOURS Branch NEEDED FOR ANXIETY OR NASAL CONGESTION HYDROXYZINE 2023-0 Yes [id number] TAKE ONE [facility] 25 mg 3-03 TABLET BY ity of tablet 00:00: MOUTH [place] 00 EVERY 8 Medical HOURS Branch NEEDED FOR ANXIETY OR NASAL CONGESTION HYDROXYZINE 2023-0 2023- No [id number] TAKE ONE [facility] 25 mg 3-03 05-31 TABLET BY ity of tablet 00:00: 00:00 MOUTH [place] 00 :00 EVERY 8 Medical HOURS Branch NEEDED FOR ANXIETY OR NASAL CONGESTION AMITRIPTYLI 2023-0 Yes [id number] TAKE ONE Univers NE 75 mg 1-17 TABLET BY ity of tablet 00:00: MOUTH [place] 00 EVERY Medical NIGHT AT Branch BEDTIME AMITRIPTYLI 2023-0 Yes [id number] TAKE ONE Univers NE 75 mg 1-17 TABLET BY ity of tablet 00:00: MOUTH [place] 00 EVERY Medical NIGHT AT Branch BEDTIME BUPROPION 2023-0 Yes [id number] TAKE ONE [facility] XL 300 mg 1-17 TABLET BY ity o f 24 hr 00:00: MOUTH [place] tablet 00 DAILY Medical Branch AMITRIPTYLI 2022-0 Yes [id number] TAKE ONE Univers NE 75 mg 1-17 TABLET BY ity of tablet 00:00: MOUTH [place] 00 EVERY Medical NIGHT AT Branch BEDTIME BUPROPION 2022-0 Yes [id number] TAKE ONE [facility] XL 300 mg 1-17 TABLET BY ity o f 24 hr 00:00: MOUTH [place] tablet 00 DAILY Medical Branch AMITRIPTYLI 2022-0 Yes [id number] TAKE ONE [facility] NE 75 mg 1-17 TABLET BY ity of tablet 00:00: MOUTH [place] 00 EVERY Medical NIGHT AT Branch BEDTIME BUPROPION 2022-0 Yes [id number] TAKE ONE [facility] XL 300 mg 1-17 TABLET BY ity o f 24 hr 00:00: MOUTH [place] tablet 00 DAILY Medical Branch AMITRIPTYLI 2022-0 Yes [id number] TAKE ONE [facility] NE 75 mg 1-17 TABLET BY ity of tablet 00:00: MOUTH [place] 00 EVERY Medical NIGHT AT Branch BEDTIME BUPROPION 2022-0 Yes [id number] TAKE ONE [facility] XL 300 mg 1-17 TABLET BY ity o f 24 hr 00:00: MOUTH [place] tablet 00 DAILY Medical Branch AMITRIPTYLI 2022-0 Yes [id number] TAKE ONE [facility] NE 75 mg 1-17 TABLET BY ity of tablet 00:00: MOUTH [place] 00 EVERY Medical NIGHT AT Branch BEDTIME BUPROPION 2022-0 Yes [id number] TAKE ONE [facility] XL 300 mg 1-17 TABLET BY ity o f 24 hr 00:00: MOUTH [place] tablet 00 DAILY Medical Branch AMITRIPTYLI 2022-0 Yes [id number] TAKE ONE [facility] NE 75 mg 1-17 TABLET BY ity of tablet 00:00: MOUTH [place] 00 EVERY Medical NIGHT AT Branch BEDTIME BUPROPION 2022-0 Yes [id number] TAKE ONE [facility] XL 300 mg 1-17 TABLET BY ity o f 24 hr 00:00: MOUTH [place] tablet 00 DAILY Medical Branch AMITRIPTYLI 2022-0 Yes [id number] TAKE ONE [facility] NE 75 mg 1-17 TABLET BY ity of tablet 00:00: MOUTH [place] 00 EVERY Medical NIGHT AT Branch BEDTIME BUPROPION 2022-0 Yes [id number] TAKE ONE [facility] XL 300 mg 1-17 TABLET BY ity o f 24 hr 00:00: MOUTH [place] tablet 00 DAILY Medical Branch AMITRIPTYLI 2022-0 Yes [id number] TAKE ONE [facility] NE 75 mg 1-17 TABLET BY ity of tablet 00:00: MOUTH [place] 00 EVERY Medical NIGHT AT Branch BEDTIME BUPROPION 2022-0 Yes [id number] TAKE ONE [facility] XL 300 mg 1-17 TABLET BY ity o f 24 hr 00:00: MOUTH [place] tablet 00 DAILY Medical Branch AMITRIPTYLI 2022-0 Yes [id number] TAKE ONE [facility] NE 75 mg 1-17 TABLET BY ity of tablet 00:00: MOUTH [place] 00 EVERY Medical NIGHT AT Branch BEDTIME BUPROPION 2022-0 Yes [id number] TAKE ONE [facility] XL 300 mg 1-17 TABLET BY ity o f 24 hr 00:00: MOUTH [place] tablet 00 DAILY Medical Branch AMITRIPTYLI 2022-0 Yes [id number] TAKE ONE [facility] NE 75 mg 1-17 TABLET BY ity of tablet 00:00: MOUTH [place] 00 EVERY Medical NIGHT AT Branch BEDTIME BUPROPION 2022-0 Yes [id number] TAKE ONE [facility] XL 300 mg 1-17 TABLET BY ity o f 24 hr 00:00: MOUTH [place] tablet 00 DAILY Medical Branch AMITRIPTYLI 2022-0 Yes [id number] TAKE ONE [facility] NE 75 mg 1-17 TABLET BY ity of tablet 00:00: MOUTH [place] 00 EVERY Medical NIGHT AT Branch BEDTIME AMITRIPTYLI 2022-0 Yes [id number] TAKE ONE [facility] NE 75 mg 1-17 TABLET BY ity of tablet 00:00: MOUTH [place] 00 EVERY Medical NIGHT AT Branch BEDTIME AMITRIPTYLI 2022-0 Yes [id number] TAKE ONE [facility] NE 75 mg 1-17 TABLET BY ity of tablet 00:00: MOUTH [place] 00 EVERY Medical NIGHT AT Branch BEDTIME AMITRIPTYLI 2022-0 Yes [id number] TAKE ONE [facility] NE 75 mg 1-17 TABLET BY ity of tablet 00:00: MOUTH [place] 00 EVERY Medical NIGHT AT Branch BEDTIME AMITRIPTYLI 2022-0 Yes [id number] TAKE ONE [facility] NE 75 mg 1-17 TABLET BY ity of tablet 00:00: MOUTH [place] 00 EVERY Medical NIGHT AT Branch BEDTIME AMITRIPTYLI 2022-0 Yes [id number] TAKE ONE [facility] NE 75 mg 1-17 TABLET BY ity of tablet 00:00: MOUTH [place] [facility] [id number] TAKE ONE [facility] NE 75 mg 1-17 TABLET BY ity of tablet 00:00: MOUTH [place] [facility] Yes [id number] TAKE ONE [facility] NE 75 mg 1-17 TABLET BY ity of tablet 00:00: MOUTH [place] 00 [facility] Yes [id number] TAKE ONE [facility] NE 75 mg 1-17 TABLET BY ity of tablet 00:00: MOUTH [place] 00 [facility] [id number] TAKE ONE [facility] NE 75 mg 1-17 TABLET BY ity of tablet 00:00: MOUTH [place] 00 EVERY Medical NIGHT AT [facility] AMITRIPTYLI Yes [id number] TAKE ONE [facility] NE 75 mg 1-17 TABLET BY ity of tablet 00:00: MOUTH [place] 00 EVERY Medical NIGHT AT [facility] AMITRIPTYLI Yes [id number] TAKE ONE [facility] NE 75 mg 1-17 TABLET BY ity of tablet 00:00: MOUTH [place] 00 EVERY Medical NIGHT AT [facility] AMITRIPTYLI Yes [id number] TAKE ONE [facility] NE 75 mg 1-17 TABLET BY ity of tablet 00:00: MOUTH [place] 00 EVERY Medical NIGHT AT [facility] AMITRIPTYLI Yes [id number] TAKE ONE [facility] NE 75 mg 1-17 TABLET BY ity of tablet 00:00: MOUTH [place] 00 EVERY Medical NIGHT AT [facility] AMITRIPTYLI 2022-0 Yes [id number] TAKE ONE [facility] NE 75 mg 1-17 TABLET BY ity of tablet 00:00: MOUTH [place] 00 EVERY Medical NIGHT AT [place] BEDTIME AMITRIPTYLI 2022-0 Yes [id number] TAKE ONE [facility] NE 75 mg 1-17 TABLET BY ity of tablet 00:00: MOUTH [place] 00 EVERY Medical NIGHT AT [place] BEDTIME AMITRIPTYLI 2022-0 Yes [id number] TAKE ONE [facility] NE 75 mg 1-17 TABLET BY ity of tablet 00:00: MOUTH [place] 00 EVERY Medical NIGHT AT [facility] AMITRIPTYLI 2022-0 Yes [id number] TAKE ONE [facility] NE 75 mg 1-17 TABLET BY ity of tablet 00:00: MOUTH 00 EVERY Medical NIGHT AT Branch BEDTIME AMITRIPTYLI 2022-0 Yes [id number] TAKE ONE [facility] NE 75 mg 1-17 TABLET BY ity of tablet 00:00: MOUTH 00 EVERY Medical NIGHT AT Branch BEDTIME AMITRIPTYLI 2022-0 Yes [id number] TAKE ONE [facility] NE 75 mg 1-17 TABLET BY ity of tablet 00:00: MOUTH [place] 00 EVERY Medical NIGHT AT Branch BEDTIME BUPROPION 2022-0 2023- No [id number] TAKE ONE [facility] XL 300 mg 1-17 03-31 TABLET BY ity of 24 hr 00:00: 00:00 MOUTH [place] tablet 00 :00 DAILY Medical Branch LEVALBUTERO 2022-0 Yes [id number] INHALE ONE [facility] L 45 1-13 TO TWO ity of mcg/actuati 00:00: PUFFS BY [place] on inhaler 00 MOUTH Medical EVERY 4 Branch HOURS NEEDED FOR WHEEZING, FOR SHORTNESS OF BREATH , BRONCHOSPA SM OR CHEST TIGHTNESS LEVALBUTERO 2022-0 Yes [id number] INHALE ONE [facility] L 45 1-13 TO TWO ity of mcg/actuati 00:00: PUFFS BY [place] on inhaler 00 MOUTH Medical EVERY 4 Branch HOURS NEEDED FOR WHEEZING, FOR SHORTNESS OF BREATH , BRONCHOSPA SM OR CHEST TIGHTNESS LEVALBUTERO 2022-0 Yes [id number] INHALE ONE [facility] L 45 1-13 TO TWO ity of mcg/actuati 00:00: PUFFS BY [place] on inhaler 00 MOUTH Medical EVERY 4 Branch HOURS NEEDED FOR WHEEZING, FOR SHORTNESS OF BREATH , BRON[place]OS[place] SM OR CHEST TIGHTNESS LEVALBUTERO 3-0 Yes [id number] INHALE ONE [facility] L 45 1-13 TO TWO ity of mcg/actuati 00:00: PUFFS BY [place] on inhaler 00 MOUTH Medical EVERY 4 Branch HOURS NEEDED FOR WHEEZING, FOR SHORTNESS OF BREATH , BRON[place]OSPA SM OR CHEST TIGHTNESS LEVALBUTERO 3-0 Yes [id number] INHALE ONE [facility] L 45 1-13 TO TWO ity of mcg/actuati 00:00: PUFFS BY [place] on inhaler 00 MOUTH Medical EVERY 4 Branch HOURS NEEDED FOR WHEEZING, FOR SHORTNESS OF BREATH , BRON[place]OSPA SM OR CHEST TIGHTNESS LEVALBUTERO 2023-0 Yes [id number] INHALE ONE [facility] L 45 1-13 TO TWO ity of mcg/actuati 00:00: PUFFS BY [place] on inhaler 00 MOUTH Medical EVERY 4 Branch HOURS NEEDED FOR WHEEZING, FOR SHORTNESS OF BREATH , BRONCHOSPA SM OR CHEST TIGHTNESS LEVALBUTERO 2023-0 Yes [id number] INHALE ONE [facility] L 45 1-13 TO TWO ity of mcg/actuati 00:00: PUFFS BY [place] on inhaler 00 MOUTH Medical EVERY 4 Branch HOURS NEEDED FOR WHEEZING, FOR SHORTNESS OF BREATH , BRONCHOSPA SM OR CHEST TIGHTNESS LEVALBUTERO 2023-0 Yes [id number] INHALE ONE [facility] L 45 1-13 TO TWO ity of mcg/actuati 00:00: PUFFS BY [place] on inhaler 00 MOUTH Medical EVERY 4 Branch HOURS NEEDED FOR WHEEZING, FOR SHORTNESS OF BREATH , BRONCHOSPA SM OR CHEST TIGHTNESS LEVALBUTERO 2023-0 Yes [id number] INHALE ONE [facility] L 45 1-13 TO TWO ity of mcg/actuati 00:00: PUFFS BY [place] on inhaler 00 MOUTH Medical EVERY 4 Branch HOURS NEEDED FOR WHEEZING, FOR SHORTNESS OF BREATH , BRONCHOSPA SM OR CHEST TIGHTNESS LEVALBUTERO 2023-0 Yes [id number] INHALE ONE [facility] L 45 1-13 TO TWO ity of mcg/actuati 00:00: PUFFS BY [place] on inhaler 00 MOUTH Medical EVERY 4 Branch HOURS NEEDED FOR WHEEZING, FOR SHORTNESS OF BREATH , BRONCHOSPA SM OR CHEST TIGHTNESS LEVALBUTERO 2023-0 Yes [id number] INHALE ONE [facility] L 45 1-13 TO TWO ity of mcg/actuati 00:00: PUFFS BY [place] on inhaler 00 MOUTH Medical EVERY 4 Branch HOURS NEEDED FOR WHEEZING, FOR SHORTNESS OF BREATH , BRONCHOSPA SM OR CHEST TIGHTNESS LEVALBUTERO 2023-0 Yes [id number] INHALE ONE [facility] L 45 1-13 TO TWO ity of mcg/actuati 00:00: PUFFS BY [place] on inhaler 00 MOUTH Medical EVERY 4 Branch HOURS NEEDED FOR WHEEZING, FOR SHORTNESS OF BREATH , BRONCHOSPA SM OR CHEST TIGHTNESS LEVALBUTERO 2023-0 Yes [id number] INHALE ONE [facility] L 45 1-13 TO TWO ity of mcg/actuati 00:00: PUFFS BY [place] on inhaler 00 MOUTH Medical EVERY 4 Branch HOURS NEEDED FOR WHEEZING, FOR SHORTNESS OF BREATH , BRONCHOSPA SM OR CHEST TIGHTNESS LEVALBUTERO 2023-0 Yes [id number] INHALE ONE [facility] L 45 1-13 TO TWO ity of mcg/actuati 00:00: PUFFS BY [place] on inhaler 00 MOUTH Medical EVERY 4 Branch HOURS NEEDED FOR WHEEZING, FOR SHORTNESS OF BREATH , BRONCHOSPA SM OR CHEST TIGHTNESS LEVALBUTERO 2023-0 Yes [id number] INHALE ONE [facility] L 45 1-13 TO TWO ity of mcg/actuati 00:00: PUFFS BY [place] on inhaler 00 MOUTH Medical EVERY 4 Branch HOURS NEEDED FOR WHEEZING, FOR SHORTNESS OF BREATH , BRONCHOSPA SM OR CHEST TIGHTNESS LEVALBUTERO 2023-0 Yes [id number] INHALE ONE [facility] L 45 1-13 TO TWO ity of mcg/actuati 00:00: PUFFS BY [place] on inhaler 00 MOUTH Medical EVERY 4 Branch HOURS NEEDED FOR WHEEZING, FOR SHORTNESS OF BREATH , BRONCHOSPA SM OR CHEST TIGHTNESS LEVALBUTERO 2023-0 Yes [id number] INHALE ONE [facility] L 45 1-13 TO TWO ity of mcg/actuati 00:00: PUFFS BY [place] on inhaler 00 MOUTH Medical EVERY 4 Branch HOURS NEEDED FOR WHEEZING, FOR SHORTNESS OF BREATH , BRONCHOS[place] SM OR CHEST TIGHTNESS LEVALBUTERO 2023-0 Yes [id number] INHALE ONE [facility] L 45 1-13 TO TWO ity of mcg/actuati 00:00: PUFFS BY [place] on inhaler 00 MOUTH Medical EVERY 4 Branch HOURS NEEDED FOR WHEEZING, FOR SHORTNESS OF BREATH , BRONCHOS[place] SM OR CHEST TIGHTNESS LEVALBUTERO 2023-0 Yes [id number] INHALE ONE [facility] L 45 1-13 TO TWO ity of mcg/actuati 00:00: PUFFS BY [place] on inhaler 00 MOUTH Medical EVERY 4 Branch HOURS NEEDED FOR WHEEZING, FOR SHORTNESS OF BREATH , BRONCHOSPA SM OR CHEST TIGHTNESS LEVALBUTERO 2023-0 Yes [id number] INHALE ONE [facility] L 45 1-13 TO TWO ity of mcg/actuati 00:00: PUFFS BY [place] on inhaler 00 MOUTH Medical EVERY 4 Branch HOURS NEEDED FOR WHEEZING, FOR SHORTNESS OF BREATH , BRONCHOSPA SM OR CHEST TIGHTNESS LEVALBUTERO 2023-0 Yes [id number] INHALE ONE [facility] L 45 1-13 TO TWO ity of mcg/actuati 00:00: PUFFS BY [place] on inhaler 00 MOUTH Medical EVERY 4 Branch HOURS NEEDED FOR WHEEZING, FOR SHORTNESS OF BREATH , BRONCHOSPA SM OR CHEST TIGHTNESS LEVALBUTERO 2023-0 Yes [id number] INHALE ONE [facility] L 45 1-13 TO TWO ity of mcg/actuati 00:00: PUFFS BY [place] on inhaler 00 MOUTH Medical EVERY 4 Branch HOURS NEEDED FOR WHEEZING, FOR SHORTNESS OF BREATH , BRONCHOSPA SM OR CHEST TIGHTNESS LEVALBUTERO 2023-0 Yes [id number] INHALE ONE [facility] L 45 1-13 TO TWO ity of mcg/actuati 00:00: PUFFS BY [place] on inhaler 00 MOUTH Medical EVERY 4 Branch HOURS NEEDED FOR WHEEZING, FOR SHORTNESS OF BREATH , BRONCHOSPA SM OR CHEST TIGHTNESS LEVALBUTERO 2023-0 Yes [id number] INHALE ONE [facility] L 45 1-13 TO TWO ity of mcg/actuati 00:00: PUFFS BY [place] on inhaler 00 MOUTH Medical EVERY 4 Branch HOURS NEEDED FOR WHEEZING, FOR SHORTNESS OF BREATH , BRONCHOSPA SM OR CHEST TIGHTNESS LEVALBUTERO 2023-0 Yes [id number] INHALE ONE [facility] L 45 1-13 TO TWO ity of mcg/actuati 00:00: PUFFS BY [place] on inhaler 00 MOUTH Medical EVERY 4 Branch HOURS NEEDED FOR WHEEZING, FOR SHORTNESS OF BREATH , BRONCHOSPA SM OR CHEST TIGHTNESS LEVALBUTERO 2023-0 Yes [id number] INHALE ONE [facility] L 45 1-13 TO TWO ity of mcg/actuati 00:00: PUFFS BY [place] on inhaler 00 MOUTH Medical EVERY 4 Branch HOURS NEEDED FOR WHEEZING, FOR SHORTNESS OF BREATH , BRONCHOSPA SM OR CHEST TIGHTNESS LEVALBUTERO 2023-0 Yes [id number] INHALE ONE [facility] L 45 1-13 TO TWO ity of mcg/actuati 00:00: PUFFS BY [place] on inhaler 00 MOUTH Medical EVERY 4 Branch HOURS NEEDED FOR WHEEZING, FOR SHORTNESS OF BREATH , BRONCHOSPA SM OR CHEST TIGHTNESS LEVALBUTERO 2023-0 Yes [id number] INHALE ONE [facility] L 45 1-13 TO TWO ity of mcg/actuati 00:00: PUFFS BY [place] on inhaler 00 MOUTH Medical EVERY 4 Branch HOURS NEEDED FOR WHEEZING, FOR SHORTNESS OF BREATH , BRONCHOSPA SM OR CHEST TIGHTNESS LEVALBUTERO 2023-0 Yes [id number] INHALE ONE [facility] L 45 1-13 TO TWO ity of mcg/actuati 00:00: PUFFS BY [place] on inhaler 00 MOUTH Medical EVERY 4 Branch HOURS NEEDED FOR WHEEZING, FOR SHORTNESS OF BREATH , BRONCHOSPA SM OR CHEST TIGHTNESS LEVALBUTERO 2023-0 Yes [id number] INHALE ONE [facility] L 45 1-13 TO TWO ity of mcg/actuati 00:00: PUFFS BY [place] on inhaler 00 MOUTH Medical EVERY 4 Branch HOURS NEEDED FOR WHEEZING, FOR SHORTNESS OF BREATH , BRONCHOSPA SM OR CHEST TIGHTNESS LEVALBUTERO 3-0 Yes [id number] INHALE ONE [facility] L 45 1-13 TO TWO ity of mcg/actuati 00:00: PUFFS BY [place] on inhaler 00 MOUTH Medical EVERY 4 Branch HOURS NEEDED FOR WHEEZING, FOR SHORTNESS OF BREATH , BRONCHOSPA SM OR CHEST TIGHTNESS LEVALBUTERO 2023-0 Yes [id number] INHALE ONE [facility] L 45 1-13 TO TWO ity of mcg/actuati 00:00: PUFFS BY [place] on inhaler 00 MOUTH Medical EVERY 4 Branch HOURS NEEDED FOR WHEEZING, FOR SHORTNESS OF BREATH , BRONCHOSPA SM OR CHEST TIGHTNESS LEVALBUTERO 2023-0 Yes [id number] INHALE ONE [facility] L 45 1-13 TO TWO ity of mcg/actuati 00:00: PUFFS BY [place] on inhaler 00 MOUTH Medical EVERY 4 Branch HOURS NEEDED FOR WHEEZING, FOR SHORTNESS OF BREATH , BRONCHOSPA SM OR CHEST TIGHTNESS insulin 2021-08 Yes Inject Univers lispro 2-13 10-25 ity of (HUMALOG 00:00: units 3 [place] KWIKPEN 00 times Medical INSULIN) daily with Branc h 100 unit/mL meals, pen plus injector sliding scale. Max daily dose 75 units Insulin 2021-08 Yes 15U inject 15 Unive rs Glargine 2-13 Units ity of (BASAGLAR 00:00: under the [place] as KWIKPEN 00 skin in Medical U-100 the Branch INSULIN) morning. 100 unit/mL (3 mL) injection insulin 2021-08 Yes Inject [facility] lispro 2-13 10-25 ity of (HUMALOG 00:00: units 3 [place] KWIKPEN 00 times Medical INSULIN) daily with Branc h 100 unit/mL meals, pen plus injector sliding scale. Max daily dose 75 units Insulin 2021-08 Yes 15U inject 15 Unive rs Glargine 2-13 Units ity of (BASAGLAR 00:00: under the [place] KWIKPEN 00 skin in Medical U-100 the Branch INSULIN) morning. 100 unit/mL (3 mL) injection insulin 2021-08 Yes Inject [facility] lispro 2-13 10-25 ity of (HUMALOG 00:00: units 3 [place] KWIKPEN 00 times Medical INSULIN) daily with Branc h 100 unit/mL meals, pen plus injector sliding scale. Max daily dose 75 units Insulin 2021-08 Yes 15U inject 15 Unive rs Glargine 2-13 Units ity of (BASAGLAR 00:00: under the [place] KWIKPEN 00 skin in Medical U-100 the Branch INSULIN) morning. 100 unit/mL (3 mL) injection insulin 2021-08 Yes Inject [facility] lispro 2-13 10-25 ity of (HUMALOG 00:00: units 3 [place] KWIKPEN 00 times Medical INSULIN) daily with Branc h 100 unit/mL meals, pen plus injector sliding scale. Max daily dose 75 units Insulin 2021-08 Yes 15U inject 15 Unive rs Glargine 2-13 Units ity of (BASAGLAR 00:00: under the [place] KWIKPEN 00 skin in Medical U-100 the Branch INSULIN) morning. 100 unit/mL (3 mL) injection insulin 2021-08 Yes Inject [facility] lispro 2-13 10-25 ity of (HUMALOG 00:00: units 3 [place] KWIKPEN 00 times Medical INSULIN) daily with Branc h 100 unit/mL meals, pen plus injector sliding scale. Max daily dose 75 units Insulin 2021-08 Yes 15U inject 15 Unive rs Glargine 2-13 Units ity of (BASAGLAR 00:00: under the [place] KWIKPEN 00 skin in Medical U-100 the Branch INSULIN) morning. 100 unit/mL (3 mL) injection insulin 2021-08 Yes Inject [facility] lispro 2-13 10-25 ity of (HUMALOG 00:00: units 3 [place] KWIKPEN 00 times Medical INSULIN) daily with Branc h 100 unit/mL meals, pen plus injector sliding scale. Max daily dose 75 units Insulin 2021-08 Yes 15U inject 15 Unive rs Glargine 2-13 Units ity of (BASAGLAR 00:00: under the [place] as KWIKPEN 00 skin in Medical U-100 the Branch INSULIN) morning. 100 unit/mL (3 mL) injection insulin 2021-08 Yes Inject [facility] lispro 2-13 10-25 ity of (HUMALOG 00:00: units 3 [place] KWIKPEN 00 times Medical INSULIN) daily with Branc h 100 unit/mL meals, pen plus injector sliding scale. Max daily dose 75 units Insulin 2021-08 Yes 15U inject 15 Unive rs Glargine 2-13 Units ity of (BASAGLAR 00:00: under the [place] KWIKPEN 00 skin in Medical U-100 the Branch INSULIN) morning. 100 unit/mL (3 mL) injection insulin 2021-08 Yes Inject [facility] lispro 2-13 10-25 ity of (HUMALOG 00:00: units 3 [place] KWIKPEN 00 times Medical INSULIN) daily with Branc h 100 unit/mL meals, pen plus injector sliding scale. Max daily dose 75 units Insulin 2021-08 Yes 15U inject 15 Unive rs Glargine 2-13 Units ity of (BASAGLAR 00:00: under the [place] KWIKPEN 00 skin in Medical U-100 the Branch INSULIN) morning. 100 unit/mL (3 mL) injection insulin 2021-08 Yes Inject [facility] lispro 2-13 10-25 ity of (HUMALOG 00:00: units 3 [place] KWIKPEN 00 times Medical INSULIN) daily with Branc h 100 unit/mL meals, pen plus injector sliding scale. Max daily dose 75 units Insulin 2021-08 Yes 15U inject 15 Unive rs Glargine 2-13 Units ity of (BASAGLAR 00:00: under the [place] KWIKPEN 00 skin in Medical U-100 the Branch INSULIN) morning. 100 unit/mL (3 mL) injection insulin 2021-08 Yes Inject [facility] lispro 2-13 10-25 ity of (HUMALOG 00:00: units 3 [place] KWIKPEN 00 times Medical INSULIN) daily with Branc h 100 unit/mL meals, pen plus injector sliding scale. Max daily dose 75 units Insulin 2021-08 Yes 15U inject 15 Unive rs Glargine 2-13 Units ity of (BASAGLAR 00:00: under the [place] KWIKPEN 00 skin in Medical U-100 the Branch INSULIN) morning. 100 unit/mL (3 mL) injection insulin 2021-08 Yes Inject [facility] lispro 2-13 10-25 ity of (HUMALOG 00:00: units 3 [place] KWIKPEN 00 times Medical INSULIN) daily with Branc h 100 unit/mL meals, pen plus injector sliding scale. Max daily dose 75 units Insulin 2021-08 Yes 15U inject 15 Unive rs Glargine 2-13 Units ity of (BASAGLAR 00:00: under the [place] KWIKPEN 00 skin in Medical U-100 the Branch INSULIN) morning. 100 unit/mL (3 mL) injection insulin 2021-08 Yes Inject [facility] lispro 2-13 10-25 ity of (HUMALOG 00:00: units 3 [place] KWIKPEN 00 times Medical INSULIN) daily with Branc h 100 unit/mL meals, pen plus injector sliding scale. Max daily dose 75 units Insulin 2021-08 Yes 15U inject 15 Unive rs Glargine 2-13 Units ity of (BASAGLAR 00:00: under the [place] KWIKPEN 00 skin in Medical U-100 the Branch INSULIN) morning. 100 unit/mL (3 mL) injection insulin 2021-08 Yes Inject [facility] lispro 2-13 10-25 ity of (HUMALOG 00:00: units 3 [place] KWIKPEN 00 times Medical INSULIN) daily with Branc h 100 unit/mL meals, pen plus injector sliding scale. Max daily dose 75 units Insulin 2021-08 Yes 15U inject 15 Unive rs Glargine 2-13 Units ity of (BASAGLAR 00:00: under the [place] KWIKPEN 00 skin in Medical U-100 the Branch INSULIN) morning. 100 unit/mL (3 mL) injection insulin 2021-08 Yes Inject [facility] lispro 2-13 10-25 ity of (HUMALOG 00:00: units 3 [place] KWIKPEN 00 times Medical INSULIN) daily with Branc h 100 unit/mL meals, pen plus injector sliding scale. Max daily dose 75 units Insulin 2021-08 Yes 15U inject 15 Unive rs Glargine 2-13 Units ity of (BASAGLAR 00:00: under the [place] KWIKPEN 00 skin in Medical U-100 the Branch INSULIN) morning. 100 unit/mL (3 mL) injection insulin 2021-08 Yes Inject [facility] lispro 2-13 10-25 ity of (HUMALOG 00:00: units 3 [place] KWIKPEN 00 times Medical INSULIN) daily with Branc h 100 unit/mL meals, pen plus injector sliding scale. Max daily dose 75 units Insulin 2021-08 Yes 15U inject 15 Unive rs Glargine 2-13 Units ity of (BASAGLAR 00:00: under the [place] KWIKPEN 00 skin in Medical U-100 the Branch INSULIN) morning. 100 unit/mL (3 mL) injection insulin 2021-08 Yes Inject [facility] lispro 2-13 10-25 ity of (HUMALOG 00:00: units 3 [place] KWIKPEN 00 times Medical INSULIN) daily with Branc h 100 unit/mL meals, pen plus injector sliding scale. Max daily dose 75 units Insulin 2021-08 Yes 15U inject 15 Unive rs Glargine 2-13 Units ity of (BASAGLAR 00:00: under the [place] KWIKPEN 00 skin in Medical U-100 the Branch INSULIN) morning. 100 unit/mL (3 mL) injection insulin 2021-08 Yes Inject [facility] lispro 2-13 10-25 ity of (HUMALOG 00:00: units 3 [place] KWIKPEN 00 times Medical INSULIN) daily with Branc h 100 unit/mL meals, pen plus injector sliding scale. Max daily dose 75 units Insulin 2021-08 Yes 15U inject 15 Unive rs Glargine 2-13 Units ity of (BASAGLAR 00:00: under the [place] KWIKPEN 00 skin in Medical U-100 the Branch INSULIN) morning. 100 unit/mL (3 mL) injection insulin 2021-08 Yes Inject [facility] lispro 2-13 10-25 ity of (HUMALOG 00:00: units 3 [place] KWIKPEN 00 times Medical INSULIN) daily with Branc h 100 unit/mL meals, pen plus injector sliding scale. Max daily dose 75 units Insulin 2021-08 Yes 15U inject 15 Unive rs Glargine 2-13 Units ity of (BASAGLAR 00:00: under the [place] KWIKPEN 00 skin in Medical U-100 the Branch INSULIN) morning. 100 unit/mL (3 mL) injection insulin 2021-08 Yes Inject [facility] lispro 2-13 10-25 ity of (HUMALOG 00:00: units 3 [place] KWIKPEN 00 times Medical INSULIN) daily with Branc h 100 unit/mL meals, pen plus injector sliding scale. Max daily dose 75 units Insulin 2021-08 Yes 15U inject 15 Unive rs Glargine 2-13 Units ity of (BASAGLAR 00:00: under the [place] KWIKPEN 00 skin in Medical U-100 the Branch INSULIN) morning. 100 unit/mL (3 mL) injection insulin 2021-08 Yes Inject [facility] lispro 2-13 10-25 ity of (HUMALOG 00:00: units 3 [place] KWIKPEN 00 times Medical INSULIN) daily with Branc h 100 unit/mL meals, pen plus injector sliding scale. Max daily dose 75 units Insulin 2021-08 Yes 15U inject 15 Unive rs Glargine 2-13 Units ity of (BASAGLAR 00:00: under the [place] KWIKPEN 00 skin in Medical U-100 the Branch INSULIN) morning. 100 unit/mL (3 mL) injection insulin 2021-08 Yes Inject [facility] lispro 2-13 10-25 ity of (HUMALOG 00:00: units 3 [place] KWIKPEN 00 times Medical INSULIN) daily with Branc h 100 unit/mL meals, pen plus injector sliding scale. Max daily dose 75 units Insulin 2021-08 Yes 15U inject 15 Unive rs Glargine 2-13 Units ity of (BASAGLAR 00:00: under the [place] KWIKPEN 00 skin in Medical U-100 the Branch INSULIN) morning. 100 unit/mL (3 mL) injection insulin 2021-08 Yes Inject [facility] lispro 2-13 10-25 ity of (HUMALOG 00:00: units 3 [place] KWIKPEN 00 times Medical INSULIN) daily with Branc h 100 unit/mL meals, pen plus injector sliding scale. Max daily dose 75 units Insulin 2021-08 Yes 15U inject 15 Unive rs Glargine 2-13 Units ity of (BASAGLAR 00:00: under the [place] KWIKPEN 00 skin in Medical U-100 the Branch INSULIN) morning. 100 unit/mL (3 mL) injection insulin 2021-08 Yes Inject [facility] lispro 2-13 10-25 ity of (HUMALOG 00:00: units 3 [place] KWIKPEN 00 times Medical INSULIN) daily with Branc h 100 unit/mL meals, pen plus injector sliding scale. Max daily dose 75 units Insulin 2021-08 Yes 15U inject 15 Unive rs Glargine 2-13 Units ity of (BASAGLAR 00:00: under the [place] KWIKPEN 00 skin in Medical U-100 the Branch INSULIN) morning. 100 unit/mL (3 mL) injection insulin 2021-08 Yes Inject [facility] lispro 2-13 10-25 ity of (HUMALOG 00:00: units 3 [place] KWIKPEN 00 times Medical INSULIN) daily with Branc h 100 unit/mL meals, pen plus injector sliding scale. Max daily dose 75 units Insulin 2021-08 Yes 15U inject 15 Unive rs Glargine 2-13 Units ity of (BASAGLAR 00:00: under the [place] KWIKPEN 00 skin in Medical U-100 the Branch INSULIN) morning. 100 unit/mL (3 mL) injection insulin 2021-08 Yes Inject [facility] lispro 2-13 10-25 ity of (HUMALOG 00:00: units 3 [place] KWIKPEN 00 times Medical INSULIN) daily with Branc h 100 unit/mL meals, pen plus injector sliding scale. Max daily dose 75 units Insulin 2021-08 Yes 15U inject 15 Unive rs Glargine 2-13 Units ity of (BASAGLAR 00:00: under the [place] KWIKPEN 00 skin in Medical U-100 the Branch INSULIN) morning. 100 unit/mL (3 mL) injection insulin 2021-08 Yes Inject [facility] lispro 2-13 10-25 ity of (HUMALOG 00:00: units 3 [place] KWIKPEN 00 times Medical INSULIN) daily with Branc h 100 unit/mL meals, pen plus injector sliding scale. Max daily dose 75 units Insulin 2021-08 Yes 15U inject 15 Unive rs Glargine 2-13 Units ity of (BASAGLAR 00:00: under the [place] KWIKPEN 00 skin in Medical U-100 the Branch INSULIN) morning. 100 unit/mL (3 mL) injection insulin 2021-08 Yes Inject [facility] lispro 2-13 10-25 ity of (HUMALOG 00:00: units 3 [place] KWIKPEN 00 times Medical INSULIN) daily with Branc h 100 unit/mL meals, pen plus injector sliding scale. Max daily dose 75 units Insulin 2021-08 Yes 15U inject 15 Unive rs Glargine 2-13 Units ity of (BASAGLAR 00:00: under the [place] KWIKPEN 00 skin in Medical U-100 the Branch INSULIN) morning. 100 unit/mL (3 mL) injection insulin 2021-08 Yes Inject [facility] lispro 2-13 10-25 ity of (HUMALOG 00:00: units 3 [place] KWIKPEN 00 times Medical INSULIN) daily with Branc h 100 unit/mL meals, pen plus injector sliding scale. Max daily dose 75 units Insulin 2021-08 Yes 15U inject 15 Unive rs Glargine 2-13 Units ity of (BASAGLAR 00:00: under the [place] KWIKPEN 00 skin in Medical U-100 the Branch INSULIN) morning. 100 unit/mL (3 mL) injection insulin 2021-08 Yes Inject [facility] lispro 2-13 10-25 ity of (HUMALOG 00:00: units 3 [place] KWIKPEN 00 times Medical INSULIN) daily with Branc h 100 unit/mL meals, pen plus injector sliding scale. Max daily dose 75 units Insulin 2021-08 Yes 15U inject 15 Unive rs Glargine 2-13 Units ity of (BASAGLAR 00:00: under the [place] KWIKPEN 00 skin in Medical U-100 the Branch INSULIN) morning. 100 unit/mL (3 mL) injection insulin 2021-08 Yes Inject [facility] lispro 2-13 10-25 ity of (HUMALOG 00:00: units 3 [place] KWIKPEN 00 times Medical INSULIN) daily with Branc h 100 unit/mL meals, pen plus injector sliding scale. Max daily dose 75 units Insulin 2021-08 Yes 15U inject 15 Unive rs Glargine 2-13 Units ity of (BASAGLAR 00:00: under the [place] KWIKPEN 00 skin in Medical U-100 the Branch INSULIN) morning. 100 unit/mL (3 mL) injection insulin 2021-08 Yes Inject [facility] lispro 2-13 10-25 ity of (HUMALOG 00:00: units 3 [place] KWIKPEN 00 times Medical INSULIN) daily with Branc h 100 unit/mL meals, pen plus injector sliding scale. Max daily dose 75 units Insulin 2021-08 Yes 15U inject 15 Unive rs Glargine 2-13 Units ity of (BASAGLAR 00:00: under the [place] KWIKPEN 00 skin in Medical U-100 the Branch INSULIN) morning. 100 unit/mL (3 mL) injection insulin 2021-08 Yes Inject [facility] lispro 2-13 10-25 ity of (HUMALOG 00:00: units 3 [place] KWIKPEN 00 times Medical INSULIN) daily with Branc h 100 unit/mL meals, pen plus injector sliding scale. Max daily dose 75 units Insulin 2021-08 Yes 15U inject 15 Unive rs Glargine 2-13 Units ity of (BASAGLAR 00:00: under the [place] KWIKPEN 00 skin in Medical U-100 the Branch INSULIN) morning. 100 unit/mL (3 mL) injection insulin 2021-08 Yes Inject [facility] lispro 100 2-13 10-25 ity of unit/mL pen 00:00: units 3 [place] injector 00 times Medical daily with Branch meals, plus sliding scale. Max daily dose 75 units Insulin 2021-08 Yes 15U inject 15 Unive rs Glargine 2-13 Units ity of 100 unit/mL 00:00: under the [place] (3 mL) 00 skin in Medical injection the Branch morning. insulin 2021-08 Yes Inject [facility] lispro 100 2-13 10-25 ity of unit/mL pen 00:00: units 3 [place] injector 00 times Medical daily with Branch meals, plus sliding scale. Max daily dose 75 units Insulin 2021-08 Yes 15U inject 15 Unive rs Glargine 2-13 Units ity of 100 unit/mL 00:00: under the [place] (3 mL) 00 skin in Medical injection the . insulin 2021-08 Yes Inject [facility] lispro 100 2-13 10-25 ity of unit/mL pen 00:00: units 3 [place] injector 00 times Medical daily with Branch meals, plus sliding scale. Max daily dose 75 units Insulin 2021-08 Yes 15U inject 15 Unive rs Glargine 2-13 Units ity of 100 unit/mL 00:00: under the [place] (3 mL) 00 skin in Medical injection the . insulin 2021-08 Yes Inject [facility] lispro 100 2-13 10-25 ity of unit/mL pen 00:00: units 3 [place] injector 00 times Medical daily with Branch meals, plus sliding scale. Max daily dose 75 units Insulin 2021-08 Yes 15U inject 15 Unive rs Glargine 2-13 Units ity of 100 unit/mL 00:00: under the [place] (3 mL) 00 skin in Medical injection the . insulin 2021-08 Yes Inject [facility] lispro 100 2-13 10-25 ity of unit/mL pen 00:00: units 3 [place] injector 00 times Medical daily with Branch meals, plus sliding scale. Max daily dose 75 units Insulin 2021-08 Yes 15U inject 15 Unive rs Glargine 2-13 Units ity of 100 unit/mL 00:00: under the [place] (3 mL) 00 skin in Medical injection the . insulin 2021-08 Yes Inject [facility] lispro 100 2-13 10-25 ity of unit/mL pen 00:00: units 3 [place] injector 00 times Medical daily with Branch meals, plus sliding scale. Max daily dose 75 units Insulin 2021-08 Yes 15U inject 15 Unive rs Glargine 2-13 Units ity of 100 unit/mL 00:00: under the [place] (3 mL) 00 skin in Medical injection the . insulin 2021-08 Yes Inject [facility] lispro 100 2-13 10-25 ity of unit/mL pen 00:00: units 3 [place] injector 00 times Medical daily with Branch meals, plus sliding scale. Max daily dose 75 units Insulin 2021-08 Yes 15U inject 15 Unive rs Glargine 2-13 Units ity of 100 unit/mL 00:00: under the [place] (3 mL) 00 skin in Medical injection the Branch morning. [facility] Yes [id number] TAKE ONE [facility] 10 mg 2-05 TABLET BY ity of tablet 00:00: [facility] DAILY Medical [place] MONTEKAST 2021-08 Yes [id number] TAKE ONE Univers 10 mg 2-05 TABLET BY ity of tablet 00:00: [facility] DAILY Medical [place] MONTELUKAST 2021-08 Yes [id number] TAKE ONE [facility] 10 mg 2-05 TABLET BY ity of tablet 00:00: [facility] Yes [id number] TAKE ONE [facility] 10 mg 2-05 TABLET BY ity of tablet 00:00: [facility] Yes [id number] TAKE ONE [facility] 10 mg 2-05 TABLET BY ity of tablet 00:00: [facility] Yes [id number] TAKE ONE [facility] 10 mg 2-05 TABLET BY ity of tablet 00:00: [facility] DAILY Medical [place] MONTELUKAST 2021-08 Yes [id number] TAKE ONE [facility] 10 mg 2-05 TABLET BY ity of tablet 00:00: [facility] Yes [id number] TAKE ONE [facility] 10 mg 2-05 TABLET BY ity of tablet 00:00: [facility] Yes [id number] TAKE ONE [facility] 10 mg 2-05 TABLET BY ity of tablet 00:00: [facility] DAILY Medical [place] MONTELUKAST 2021-08 Yes [id number] TAKE ONE [facility] 10 mg 2-05 TABLET BY ity of tablet 00:00: [facility] DAILY Medical [place] MONTEKAST 2021-08 Yes [id number] TAKE ONE [facility] 10 mg 2-05 TABLET BY ity of tablet 00:00: [facility] DAILY Medical [place] MONTELUKAST 2021-08 Yes [id number] TAKE ONE Univers 10 mg 2-05 TABLET BY ity of tablet 00:00: [facility] DAILY Medical [place] MONTELUKAST 2021-08 Yes [id number] TAKE ONE Univers 10 mg 2-05 TABLET BY ity of tablet 00:00: MOUTH [place] 00 DAILY Medical Branch MONTELUKAST 2021- Yes [id number] TAKE ONE [facility] 10 mg 2-05 TABLET BY ity of tablet 00:00: MOUTH [place] 00 DAILY Medical Branch MONTELUKAST 2021-08 Yes [id number] TAKE ONE [facility] 10 mg 2-05 TABLET BY ity of tablet 00:00: MOUTH [place] 00 DAILY Medical Branch MONTELUKAST 2021-08 Yes [id number] TAKE ONE [facility] 10 mg 2-05 TABLET BY ity of tablet 00:00: MOUTH [place] 00 DAILY Medical Branch MONTELUKAST 2021-08 Yes [id number] TAKE ONE [facility] 10 mg 2-05 TABLET BY ity of tablet 00:00: MOUTH [place] 00 DAILY Medical Branch MONTELUKAST 2021-08 Yes [id number] TAKE ONE [facility] 10 mg 2-05 TABLET BY ity of tablet 00:00: MOUTH [place] 00 DAILY Medical Branch MONTELUKAST 2021-08 Yes [id number] TAKE ONE [facility] 10 mg 2-05 TABLET BY ity of tablet 00:00: MOUTH [place] 00 DAILY Medical Branch MONTELUKAST 2021-3- No [id number] TAKE ONE [facility] 10 mg 2-05 03-08 TABLET BY ity of tablet 00:00: 00:00 MOUTH [place] 00 :00 DAILY Medical Branch HYDROXYZINE 2021-08 Yes [id number] TAKE ONE [facility] 25 mg 0-28 TABLET BY ity of tablet 00:00: MOUTH [place] 00 EVERY 8 Medical HOURS Branch NEEDED FOR ANXIETY OR NASAL CONGESTION BUPROPION 2021-08 Yes [id number] TAKE ONE [facility] XL 300 mg 0-28 TABLET BY ity o f 24 hr 00:00: MOUTH [place] tablet 00 DAILY Medical Branch HYDROXYZINE 2021- Yes [id number] TAKE ONE [facility] 25 mg 0-28 TABLET BY ity of tablet 00:00: MOUTH [place] 00 EVERY 8 Medical HOURS Branch NEEDED FOR ANXIETY OR NASAL CONGESTION BUPROPION 2021-08 Yes [id number] TAKE ONE [facility] XL 300 mg 0-28 TABLET BY ity o f 24 hr 00:00: MOUTH [place] tablet 00 DAILY Medical Branch HYDROXYZINE 2021-08 Yes [id number] TAKE ONE [facility] 25 mg 0-28 TABLET BY ity of tablet 00:00: MOUTH [place] 00 EVERY 8 Medical HOURS Branch NEEDED FOR ANXIETY OR NASAL CONGESTION BUPROPION 2021-08 Yes [id number] TAKE ONE [facility] XL 300 mg 0-28 TABLET BY ity o f 24 hr 00:00: MOUTH [place] tablet 00 DAILY Medical Branch HYDROXYZINE 2021-08 Yes [id number] TAKE ONE [facility] 25 mg 0-28 TABLET BY ity of tablet 00:00: MOUTH [place] 00 EVERY 8 Medical HOURS Branch NEEDED FOR ANXIETY OR NASAL CONGESTION BUPROPION 2021-08 Yes [id number] TAKE ONE [facility] XL 300 mg 0-28 TABLET BY ity o f 24 hr 00:00: MOUTH [place] tablet 00 DAILY Medical Branch HYDROXYZINE 2021-08 Yes [id number] TAKE ONE [facility] 25 mg 0-28 TABLET BY ity of tablet 00:00: MOUTH [place] 00 EVERY 8 Medical HOURS Branch NEEDED FOR ANXIETY OR NASAL CONGESTION BUPROPION 2021-08 Yes [id number] TAKE ONE [facility] XL 300 mg 0-28 TABLET BY ity o f 24 hr 00:00: MOUTH [place] tablet 00 DAILY Medical Branch HYDROXYZINE 2021-08 Yes [id number] TAKE ONE [facility] 25 mg 0-28 TABLET BY ity of tablet 00:00: MOUTH [place] 00 EVERY 8 Medical HOURS Branch NEEDED FOR ANXIETY OR NASAL CONGESTION BUPROPION 2021-08 Yes [id number] TAKE ONE [facility] XL 300 mg 0-28 TABLET BY ity o f 24 hr 00:00: MOUTH [place] tablet 00 DAILY Medical Branch HYDROXYZINE 2021-08 Yes [id number] TAKE ONE [facility] 25 mg 0-28 TABLET BY ity of tablet 00:00: MOUTH [place] 00 EVERY 8 Medical HOURS Branch NEEDED FOR ANXIETY OR NASAL CONGESTION BUPROPION 2021-08 Yes [id number] TAKE ONE [facility] XL 300 mg 0-28 TABLET BY ity o f 24 hr 00:00: MOUTH [place] tablet 00 DAILY Medical Branch HYDROXYZINE 2021-08 Yes [id number] TAKE ONE [facility] 25 mg 0-28 TABLET BY ity of tablet 00:00: MOUTH [place] 00 EVERY 8 Medical HOURS Branch NEEDED FOR ANXIETY OR NASAL CONGESTION BUPROPION 2021-08 Yes [id number] TAKE ONE [facility] XL 300 mg 0-28 TABLET BY ity o f 24 hr 00:00: MOUTH [place] tablet 00 DAILY Medical Branch HYDROXYZINE 2021-08 Yes [id number] TAKE ONE [facility] 25 mg 0-28 TABLET BY ity of tablet 00:00: MOUTH [place] 00 EVERY 8 Medical HOURS Branch NEEDED FOR ANXIETY OR NASAL CONGESTION BUPROPION 2021-08 Yes [id number] TAKE ONE [facility] XL 300 mg 0-28 TABLET BY ity o f 24 hr 00:00: MOUTH [place] tablet 00 DAILY Medical Branch HYDROXYZINE 2021-08 Yes [id number] TAKE ONE [facility] 25 mg 0-28 TABLET BY ity of tablet 00:00: MOUTH [place] 00 EVERY 8 Medical HOURS Branch NEEDED FOR ANXIETY OR NASAL CONGESTION BUPROPION 2021-08 Yes [id number] TAKE ONE [facility] XL 300 mg 0-28 TABLET BY ity o f 24 hr 00:00: MOUTH [place] tablet 00 DAILY Medical Branch HYDROXYZINE 2021-08 Yes [id number] TAKE ONE [facility] 25 mg 0-28 TABLET BY ity of tablet 00:00: MOUTH [place] 00 EVERY 8 Medical HOURS Branch NEEDED FOR ANXIETY OR NASAL CONGESTION BUPROPION 2021-08 Yes [id number] TAKE ONE [facility] XL 300 mg 0-28 TABLET BY ity o f 24 hr 00:00: MOUTH [place] tablet 00 DAILY Medical Branch HYDROXYZINE 2021-08 Yes [id number] TAKE ONE [facility] 25 mg 0-28 TABLET BY ity of tablet 00:00: MOUTH [place] 00 EVERY 8 Medical HOURS Branch NEEDED FOR ANXIETY OR NASAL CONGESTION BUPROPION 2021-08 Yes [id number] TAKE ONE [facility] XL 300 mg 0-28 TABLET BY ity o f 24 hr 00:00: MOUTH [place] tablet 00 DAILY Medical Branch HYDROXYZINE 2021-08 Yes [id number] TAKE ONE [facility] 25 mg 0-28 TABLET BY ity of tablet 00:00: MOUTH [place] 00 EVERY 8 Medical HOURS Branch NEEDED FOR ANXIETY OR NASAL CONGESTION BUPROPION 2021-08 Yes [id number] TAKE ONE [facility] XL 300 mg 0-28 TABLET BY ity o f 24 hr 00:00: MOUTH [place] tablet 00 DAILY Medical Branch HYDROXYZINE 2021-08 Yes [id number] TAKE ONE [facility] 25 mg 0-28 TABLET BY ity of tablet 00:00: MOUTH [place] 00 EVERY 8 Medical HOURS Branch NEEDED FOR ANXIETY OR NASAL CONGESTION BUPROPION 2021-08 Yes [id number] TAKE ONE [facility] XL 300 mg 0-28 TABLET BY ity o f 24 hr 00:00: MOUTH [place] tablet 00 DAILY Medical Branch HYDROXYZINE 2021-08 Yes [id number] TAKE ONE [facility] 25 mg 0-28 TABLET BY ity of tablet 00:00: MOUTH [place] 00 EVERY 8 Medical HOURS Branch NEEDED FOR ANXIETY OR NASAL CONGESTION BUPROPION 2021-08 Yes [id number] TAKE ONE [facility] XL 300 mg 0-28 TABLET BY ity o f 24 hr 00:00: MOUTH [place] tablet 00 DAILY Medical Branch HYDROXYZINE 2021-08 Yes [id number] TAKE ONE [facility] 25 mg 0-28 TABLET BY ity of tablet 00:00: MOUTH [place] 00 EVERY 8 Medical HOURS Branch NEEDED FOR ANXIETY OR NASAL CONGESTION BUPROPION 2021-08 Yes [id number] TAKE ONE [facility] XL 300 mg 0-28 TABLET BY ity o f 24 hr 00:00: MOUTH [place] tablet 00 DAILY Medical Branch HYDROXYZINE 2021-08 Yes [id number] TAKE ONE [facility] 25 mg 0-28 TABLET BY ity of tablet 00:00: MOUTH [place] 00 EVERY 8 Medical HOURS Branch NEEDED FOR ANXIETY OR NASAL CONGESTION BUPROPION 2021-08 Yes [id number] TAKE ONE [facility] XL 300 mg 0-28 TABLET BY ity o f 24 hr 00:00: MOUTH [place] tablet 00 DAILY Medical Branch HYDROXYZINE 2021-08 Yes [id number] TAKE ONE [facility] 25 mg 0-28 TABLET BY ity of tablet 00:00: MOUTH [place] 00 EVERY 8 Medical HOURS Branch NEEDED FOR ANXIETY OR NASAL CONGESTION BUPROPION 2021-08 Yes [id number] TAKE ONE [facility] XL 300 mg 0-28 TABLET BY ity o f 24 hr 00:00: MOUTH [place] tablet 00 DAILY Medical Branch HYDROXYZINE 2021-08 Yes [id number] TAKE ONE [facility] 25 mg 0-28 TABLET BY ity of tablet 00:00: MOUTH [place] 00 EVERY 8 Medical HOURS Branch NEEDED FOR ANXIETY OR NASAL CONGESTION BUPROPION 2021-08 Yes [id number] TAKE ONE [facility] XL 300 mg 0-28 TABLET BY ity o f 24 hr 00:00: MOUTH [place] tablet 00 DAILY Medical Branch HYDROXYZINE 2021-08 Yes [id number] TAKE ONE Univers 25 mg 0-28 TABLET BY ity of tablet 00:00: MOUTH [place] 00 EVERY 8 Medical HOURS Branch NEEDED FOR ANXIETY OR NASAL CONGESTION HYDROXYZINE 2021-08 Yes [id number] TAKE ONE Univers 25 mg 0-28 TABLET BY ity of tablet 00:00: MOUTH [place] 00 EVERY 8 Medical HOURS Branch NEEDED FOR ANXIETY OR NASAL CONGESTION HYDROXYZINE 2021-08 Yes [id number] TAKE ONE Univers 25 mg 0-28 TABLET BY ity of tablet 00:00: MOUTH [place] 00 EVERY 8 Medical HOURS Branch NEEDED FOR ANXIETY OR NASAL CONGESTION HYDROXYZINE 2021-08 Yes [id number] TAKE ONE Univers 25 mg 0-28 TABLET BY ity of tablet 00:00: MOUTH [place] 00 EVERY 8 Medical HOURS Branch NEEDED FOR ANXIETY OR NASAL CONGESTION HYDROXYZINE 2021-08 Yes [id number] TAKE ONE Univers 25 mg 0-28 TABLET BY ity of tablet 00:00: MOUTH [place] 00 EVERY 8 Medical HOURS Branch NEEDED FOR ANXIETY OR NASAL CONGESTION HYDROXYZINE 2021-08 Yes [id number] TAKE ONE Univers 25 mg 0-28 TABLET BY ity of tablet 00:00: MOUTH [place] 00 EVERY 8 Medical HOURS Branch NEEDED FOR ANXIETY OR NASAL CONGESTION HYDROXYZINE 2021-08 Yes [id number] TAKE ONE Univers 25 mg 0-28 TABLET BY ity of tablet 00:00: MOUTH [place] 00 EVERY 8 Medical HOURS Branch NEEDED FOR ANXIETY OR NASAL CONGESTION HYDROXYZINE 2021-08- No [id number] TAKE ONE Univers 25 mg 0-28 03-03 TABLET BY ity of tablet 00:00: 00:00 MOUTH [place] 00 :00 EVERY 8 Medical HOURS Branch NEEDED FOR ANXIETY OR NASAL CONGESTION BUPROPION 2021-08- No [id number] TAKE ONE [facility] XL 300 mg 0-28 01-17 TABLET BY ity of 24 hr 00:00: 00:00 MOUTH [place] tablet 00 :00 DAILY Medical Branch BUPROPION 2021-08- No [id number] TAKE ONE [facility] XL 300 mg 0-28 01-17 TABLET BY ity of 24 hr 00:00: 00:00 MOUTH [place] tablet 00 :00 DAILY Medical Branch ipratropium 2021-08- No 3mL 3 mL, Univ ers -albuteroL 0-13 10-13 Inhalation it y of (DUONEB) 16:15: 16:43 , ONCE, 1 [place] 0.5 mg-3 00 :00 dose, On Medical mg(2.5 mg [place] Branch base)/3 mL 05/16/22 nebulizer at 1115, solution 3 Routine mL HYDROcodone 2021-08- No 1{tbl} Take 1 U nivers -acetaminop 0-13 10-13 tablet by it y of hen 10-325 10:32: 00:00 mouth [place] mg tablet 21 :00 every 6 Medical (six) Branch hours as needed. HYDROcodone 2021-08- No 1{tbl} Take 1 U nivers -acetaminop 0-13 10-13 tablet by it y of hen 10-325 10:32: 00:00 mouth [place] mg tablet 21 :00 every 6 Medical (six) Branch hours as needed. simvastatin 2021-08 Yes 20mg 20 mg, Univ ers (ZOCOR) 0-13 Oral, QHS, ity of tablet 20 02:00: First dose [place] mg 00 on Fri [facility] 05/15/22 Branch at 2100, Until Discontinu ed, Routine lisinopriL 2021-08- No [id number] 10mg Take 1 Univers 10 mg 0-13 11-13 tablet by ity of tablet 00:00: 05:59 mouth in [place] 00 :00 the [facility] for 30 days. lisinopriL 2021-08- No [id number] 10mg Take 1 Univers 10 mg 0-13 11-13 tablet by ity of tablet 00:00: 05:59 mouth in [place] 00 :00 [facility] for 30 days. lisinopriL 2021-08- No [id number] 10mg Take 1 Univers 10 mg 0-13 11-13 tablet by ity of tablet 00:00: 05:59 mouth in [place] 00 :00 [facility] for 30 days. lisinopriL 2021-08- No [id number] 10mg Take 1 Univers 10 mg 0-13 11-13 tablet by ity of tablet 00:00: 05:59 mouth in [place] 00 :00 [facility] for 30 days. lisinopriL 2021-08- No [id number] 10mg Take 1 Univers 10 mg 0-13 11-13 tablet by ity of tablet 00:00: 05:59 mouth in [place] 00 :00 [facility] for 30 days. lisinopriL 2021-08- No [id number] 10mg Take 1 Univers 10 mg 0-13 11-13 tablet by ity of tablet 00:00: 05:59 mouth in [place] 00 :00 [facility] for 30 days. lisinopriL 2021-08- No [id number] 10mg Take 1 Univers 10 mg 0-13 11-13 tablet by ity of tablet 00:00: 05:59 mouth in [place] 00 :00 the [facility] for 30 days. lisinopriL 2021-08- No [id number] 10mg Take 1 Univers 10 mg 0-13 11-13 tablet by ity of tablet 00:00: 05:59 mouth in [place] 00 :00 the [facility] for 30 days. NaCl 0.9% 2021-08 Yes 1000mL at 100 Univ ers (NS) IV 0-12 mL/hr, IV ity of infusion 23:00: [place]fusion, [place] 1,000 mL 00 CONTINUOUS Medic al , Starting Branch on Fri05/15/22 at 1800, Until Discontinu ed, Routine omeprazole 2021-08 Yes 40mg 40 mg, Unive rs (PRILOSEC) 0-12 Oral, ity of capsule 40 14:00: DAILY, [place] mg 00 First dose Medical on Fri Branch 05/15/22 at 0900, Until Discontinu ed montelukast 2021-08 Yes 10mg 10 mg, Univ ers (SINGULAIR) 0-12 Oral, ity of tablet 10 14:00: DAILY, [place] mg 00 First dose Medical on Fri Branch 05/15/22 at 0900, Until Discontinu ed, Routine buPROPion 2021-08 Yes 150mg 150 mg, Univ ers XL 0-12 Oral, ity of (WELLBUTRIN 14:00: DAILY, [place] XL) tablet 00 First dose Med ical 150 mg on Fri Branch 05/15/22 at 0900, Until Discontinu ed, Routine enoxaparin 2021-08 Yes 30mg 30 mg, Unive rs (LOVENOX) 0-12 Subcutaneo ity of injection 14:00: [place], DAILY, [place] 30 mg 00 First dose Medical on Fri Branch 05/15/22 at 0900, Until Discontinu ed, Routine NaCl 0.9% 2021-08 No 1000mL at 150 Uni vers (NS) IV 0-12 10-12 mL/hr, IV ity of infusion 08:15: 22:54 Infusion, [place] 1,000 mL 00 :37 CONTINUOUS Medic al , Starting Branch on Fri05/15/22 at 0315, Until Fri05/15/22 at 1754, Routine NaCl 0.9% 2021-08- No 500mL at 999 Univ ers (NS) bolus 0-12 10-12 mL/hr, 500 it y of infusion 08:00: 09:16 mL, IV [place] 500 mL 00 :31 Infusion, Medical ONCE, 1 Branch dose, On Fri05/15/22 at 0300, TAYLA gabapentin 2021-08 Yes 300mg 300 mg, Uni vers (NEURONTIN) 0-12 Oral, QHS, it y of capsule 300 07:15: First dose [place] mg 00 on Fri [facility] 05/15/22 Branch at 0215, Until Discontinu ed, Routine amitriptyli 2021-08 Yes 75mg 75 mg, Univ ers ne (ELAVIL) 0-12 Oral, QHS, it y of tablet 75 07:15: First dose [place] mg 00 on Fri [facility] 05/15/22 Branch at 0215, Until Discontinu ed, Routine hydrOXYzine 2021-08 Yes 25mg 25 mg, Univ ers (ATARAX) 0-12 Oral, ity of tablet 25 07:05: Q8HPRN, [place] mg 35 Starting Medical on Fri Branch 05/15/22 at 0205, Until Discontinu ed, Routine, Anxiety iopamidol 2021-08- No [id number] 80mL 80 mL, Univers (ISOVUE 0-12 10-12 Intravenou ity o f 370-500 mL) 06:00: 06:00 s, ONCE, 1 [place] injection 00 :00 dose, On Medica l 80 mL Fri05/15/22 at 0100, Routine traMADoL 2021-08- No 50mg 50 mg, Univer s (ULTRAM) 0-12 10-14 Oral, ity of tablet 50 00:25: 00:24 Q8HPRN, [place] mg 08 :08 Starting Medical on Fri05/14/22 at 1925, Until [place] 05/16/22 at 1924, Routine, Pain (scale 4-6) acetaminoph 2021-08 Yes 650mg 650 mg, Un gray en 0-12 Oral, ity of (TYLENOL) 00:24: Q6HPRN, [place] tablet 650 57 Starting Medic al mg on Fri05/14/22 at 1924, Until Discontinu ed, Routine, Pain (scale 1-3) acetaminoph 2021-08- No 1000mg 1,000 mg, Univers en 0-11 10-11 Oral, ity of (TYLENOL) 21:30: 21:20 ONCE, 1 [place] tablet 00 :00 dose, On Medical 1,000 mg Tue Branch 05/14/22 at 1630, TAYLA NaCl 0.9% 2021-08- No 1000mL at 999 Uni vers (NS) bolus 0-11 10-11 mL/hr, ity of infusion 20:00: 22:45 1,000 mL, [place] 1,000 mL 00 :00 IV Medical Infusion, Branch ONCE, 1 dose, On Fri05/14/22 at 1500, STAT MONTELUKAST 0 Yes [id number] TAKE ONE Univers 10 mg 8-30 TABLET BY ity of tablet 00:00: [facility] DAILY Medical Branch MONTELUKAST 2021-0 Yes [id number] TAKE ONE Univers 10 mg 8-30 TABLET BY ity of tablet 00:00: [facility] DAILY Medical Branch MONTELUKAST 2021-0 Yes [id number] TAKE ONE Univers 10 mg 8-30 TABLET BY ity of tablet 00:00: [facility] DAILY Medical Branch MONTELUKAST 2021-0 Yes [id number] TAKE ONE Univers 10 mg 8-30 TABLET BY ity of tablet 00:00: [facility] DAILY Medical Branch MONTELUKAST 2021-0 Yes [id number] TAKE ONE Univers 10 mg 8-30 TABLET BY ity of tablet 00:00: [facility] DAILY Medical Branch MONTELUKAST 2021-0 Yes [id number] TAKE ONE Univers 10 mg 8-30 TABLET BY ity of tablet 00:00: [facility] DAILY Medical Branch MONTELUKAST 2021-0 Yes [id number] TAKE ONE Univers 10 mg 8-30 TABLET BY ity of tablet 00:00: [facility] DAILY Medical Branch MONTELUKAST 2021-0 Yes [id number] TAKE ONE [facility] 10 mg 8-30 TABLET BY ity of tablet 00:00: [facility] DAILY Medical Branch MONTELUKAST 2021-0 Yes [id number] TAKE ONE Univers 10 mg 8-30 TABLET BY ity of tablet 00:00: [facility] DAILY Medical Branch MONTELUKAST 2021-0 Yes [id number] TAKE ONE Univers 10 mg 8-30 TABLET BY ity of tablet 00:00: MOUTH [place] 00 DAILY Medical Branch MONTELUKAST 2021-0 Yes [id number] TAKE ONE [facility] 10 mg 8-30 TABLET BY ity of tablet 00:00: MOUTH [place] 00 DAILY Medical Branch MONTELUKAST 2021-0 Yes [id number] TAKE ONE [facility] 10 mg 8-30 TABLET BY ity of tablet 00:00: MOUTH [place] 00 DAILY Medical Branch MONTELUKAST 2021-0 Yes [id number] TAKE ONE [facility] 10 mg 8-30 TABLET BY ity of tablet 00:00: MOUTH [place] 00 DAILY Medical Branch MONTELUKAST 2021-0 Yes [id number] TAKE ONE [facility] 10 mg 8-30 TABLET BY ity of tablet 00:00: MOUTH [place] DAILY Medical Branch MONTELUKAST 2021-0 Yes [id number] TAKE ONE [facility] 10 mg 8-30 TABLET BY ity of tablet 00:00: MOUTH [place] DAILY Medical Branch MONTELUKAST 2021-0 Yes [id number] TAKE ONE [facility] 10 mg 8-30 TABLET BY ity of tablet 00:00: MOUTH [place] 00 DAILY Medical Branch MONTELUKAST 2021-0 Yes [id number] TAKE ONE [facility] 10 mg 8-30 TABLET BY ity of tablet 00:00: MOUTH [place] 00 DAILY Medical Branch MONTELUKAST 2021-0 Yes [id number] TAKE ONE [facility] 10 mg 8-30 TABLET BY ity of tablet 00:00: MOUTH [place] 00 DAILY Medical Branch MONTELUKAST 2021-0 2- No [id number] TAKE ONE [facility] 10 mg 8-30 12-05 TABLET BY ity of tablet 00:00: 00:00 MOUTH [place] 00 :00 DAILY Medical Branch BUPROPION 2021-0 Yes [id number] TAKE ONE [facility] XL 300 mg 8-17 TABLET BY ity o f 24 hr 00:00: MOUTH [place] tablet 00 DAILY Medical Branch HYDROXYZINE 2021-0 Yes [id number] TAKE ONE [facility] 25 mg 8-17 TABLET BY ity of tablet 00:00: MOUTH [place] 00 EVERY 8 Medical HOURS Branch NEEDED FOR ANXIETY OR NASAL CONGESTION BUPROPION 2021-0 Yes [id number] TAKE ONE [facility] XL 300 mg 8-17 TABLET BY ity o f 24 hr 00:00: MOUTH [place] tablet 00 DAILY Medical Branch HYDROXYZINE 2021-0 Yes [id number] TAKE ONE [facility] 25 mg 8-17 TABLET BY ity of tablet 00:00: MOUTH [place] 00 EVERY 8 Medical HOURS Branch NEEDED FOR ANXIETY OR NASAL CONGESTION BUPROPION 2021-0 Yes [id number] TAKE ONE [facility] XL 300 mg 8-17 TABLET BY ity o f 24 hr 00:00: MOUTH [place] tablet 00 DAILY Medical Branch HYDROXYZINE 2021-0 Yes [id number] TAKE ONE [facility] 25 mg 8-17 TABLET BY ity of tablet 00:00: MOUTH [place] 00 EVERY 8 Medical HOURS Branch NEEDED FOR ANXIETY OR NASAL CONGESTION BUPROPION 2021-0 Yes [id number] TAKE ONE [facility] XL 300 mg 8-17 TABLET BY ity o f 24 hr 00:00: MOUTH [place] tablet 00 DAILY Medical Branch HYDROXYZINE 2021-0 Yes [id number] TAKE ONE [facility] 25 mg 8-17 TABLET BY ity of tablet 00:00: MOUTH [place] 00 EVERY 8 Medical HOURS Branch NEEDED FOR ANXIETY OR NASAL CONGESTION BUPROPION 2021-0 Yes [id number] TAKE ONE [facility] XL 300 mg 8-17 TABLET BY ity o f 24 hr 00:00: MOUTH [place] tablet 00 DAILY Medical Branch HYDROXYZINE 2021-0 Yes [id number] TAKE ONE [facility] 25 mg 8-17 TABLET BY ity of tablet 00:00: MOUTH [place] 00 EVERY 8 Medical HOURS Branch NEEDED FOR ANXIETY OR NASAL CONGESTION BUPROPION 2021-0 Yes [id number] TAKE ONE [facility] XL 300 mg 8-17 TABLET BY ity o f 24 hr 00:00: MOUTH [place] tablet 00 DAILY Medical Branch HYDROXYZINE 2021-0 Yes [id number] TAKE ONE [facility] 25 mg 8-17 TABLET BY ity of tablet 00:00: MOUTH [place] 00 EVERY 8 Medical HOURS Branch NEEDED FOR ANXIETY OR NASAL CONGESTION BUPROPION 2-0 Yes [id number] TAKE ONE [facility] XL 300 mg 8-17 TABLET BY ity o f 24 hr 00:00: MOUTH [place] tablet 00 DAILY Medical Branch HYDROXYZINE 2-0 Yes [id number] TAKE ONE [facility] 25 mg 8-17 TABLET BY ity of tablet 00:00: MOUTH [place] 00 EVERY 8 Medical HOURS Branch NEEDED FOR ANXIETY OR NASAL CONGESTION BUPROPION 2-0 Yes [id number] TAKE ONE [facility] XL 300 mg 8-17 TABLET BY ity o f 24 hr 00:00: MOUTH [place] tablet 00 DAILY Medical Branch HYDROXYZINE 2021-0 Yes [id number] TAKE ONE [facility] 25 mg 8-17 TABLET BY ity of tablet 00:00: MOUTH [place] 00 EVERY 8 Medical HOURS Branch NEEDED FOR ANXIETY OR NASAL CONGESTION BUPROPION 2021-0 Yes [id number] TAKE ONE [facility] XL 300 mg 8-17 TABLET BY ity o f 24 hr 00:00: MOUTH [place] tablet 00 DAILY Medical Branch HYDROXYZINE 2021-0 Yes [id number] TAKE ONE [facility] 25 mg 8-17 TABLET BY [facility] tablet 00:00: MOUTH [place] 00 EVERY 8 Medical HOURS Branch NEEDED FOR ANXIETY OR NASAL CONGESTION BUPROPION 2021-0 Yes [id number] TAKE ONE [facility] XL 300 mg 8-17 TABLET BY ity o f 24 hr 00:00: MOUTH [place] tablet 00 DAILY Medical Branch HYDROXYZINE 2021-0 Yes [id number] TAKE ONE [facility] 25 mg 8-17 TABLET BY it[facility] of tablet 00:00: MOUTH [place] 00 EVERY 8 Medical HOURS Branch NEEDED FOR ANXIETY OR NASAL CONGESTION BUPROPION 2021-0 Yes [id number] TAKE ONE [facility] XL 300 mg 8-17 TABLET BY ity o f 24 hr 00:00: MOUTH [place] tablet 00 DAILY Medical Branch HYDROXYZINE 2021-0 Yes [id number] TAKE ONE [facility] 25 mg 8-17 TABLET BY it[facility] of tablet 00:00: MOUTH [place] 00 EVERY 8 Medical HOURS Branch NEEDED FOR ANXIETY OR NASAL CONGESTION BUPROPION 2021-0 2021- No [id number] TAKE ONE [facility] XL 300 mg 8-17 10-28 TABLET BY ity of 24 hr 00:00: 00:00 MOUTH [place] tablet 00 :00 DAILY Medical Branch HYDROXYZINE 2021-0 2021- No [id number] TAKE ONE [facility] 25 mg 8-17 10-28 TABLET BY it[facility] of tablet 00:00: 00:00 MOUTH [place] 00 :00 EVERY 8 Medical HOURS Branch NEEDED FOR ANXIETY OR NASAL CONGESTION AMITRIPTYLI 2021-0 Yes [id number] TAKE ONE [facility] NE 75 mg 7-29 TABLET BY ity of tablet 00:00: MOUTH [place] 00 EVERY Medical NIGHT AT Branch BEDTIME AMITRIPTYLI 2021-0 Yes [id number] TAKE ONE [facility] NE 75 mg 7-29 TABLET BY ity of tablet 00:00: MOUTH [place] 00 EVERY Medical NIGHT AT Branch BEDTIME AMITRIPTYLI 2022-0 Yes [id number] TAKE ONE [facility] NE 75 mg 7-29 TABLET BY ity of tablet 00:00: MOUTH [place] 00 EVERY Medical NIGHT AT [place] BEDTIME AMITRIPTYLI 2021-0 Yes [id number] TAKE ONE [facility] NE 75 mg 7-29 TABLET BY ity of tablet 00:00: MOUTH [place] [facility] Yes [id number] TAKE ONE [facility] NE 75 mg 7-29 TABLET BY ity of tablet 00:00: MOUTH [place] 00 [facility] Yes [id number] TAKE ONE [facility] NE 75 mg 7-29 TABLET BY ity of tablet 00:00: MOUTH [place] 00 [facility]0 Yes [id number] TAKE ONE [facility] NE 75 mg 7-29 TABLET BY ity of tablet 00:00: MOUTH [place] 00 EVERY Medical NIGHT AT [facility] AMITRIPTYLI 2021-0 Yes [id number] TAKE ONE [facility] NE 75 mg 7-29 TABLET BY ity of tablet 00:00: MOUTH [place] 00 EVERY Medical NIGHT AT [facility] AMITRIPTYLI 2021-0 Yes [id number] TAKE ONE [facility] NE 75 mg 7-29 TABLET BY ity of tablet 00:00: MOUTH [place] 00 EVERY Medical NIGHT AT [facility] AMITRIPTYLI 2021-0 Yes [id number] TAKE ONE [facility] NE 75 mg 7-29 TABLET BY ity of tablet 00:00: MOUTH [place] 00 EVERY Medical NIGHT AT [facility] AMITRIPTYLI 2021-0 Yes [id number] TAKE ONE [facility] NE 75 mg 7-29 TABLET BY ity of tablet 00:00: MOUTH [place] 00 [facility] Yes [id number] TAKE ONE [facility] NE 75 mg 7-29 TABLET BY ity of tablet 00:00: MOUTH [place] 00 EVERY Medical NIGHT AT [place] BEDTIME AMITRIPTYLI 2021-0 Yes [id number] TAKE ONE [facility] NE 75 mg 7-29 TABLET BY ity of tablet 00:00: MOUTH [place] 00 EVERY Medical NIGHT AT [place] BEDTIME AMITRIPTYLI 2021-0 Yes [id number] TAKE ONE [facility] NE 75 mg 7-29 TABLET BY ity of tablet 00:00: MOUTH [place] 00 [facility]0 Yes [id number] TAKE ONE [facility] NE 75 mg 7-29 TABLET BY ity of tablet 00:00: MOUTH [place] 00 [facility]0 Yes [id number] TAKE ONE [facility] NE 75 mg 7-29 TABLET BY ity of tablet 00:00: MOUTH [place] 00 [facility]0 Yes [id number] TAKE ONE [facility] NE 75 mg 7-29 TABLET BY ity of tablet 00:00: MOUTH [place] 00 EVERY Medical NIGHT AT [facility] AMITRIPTYLI 2021-0 Yes [id number] TAKE ONE [facility] NE 75 mg 7-29 TABLET BY ity of tablet 00:00: MOUTH [place] 00 EVERY Medical NIGHT AT [facility] AMITRIPTYLI 0 Yes [id number] TAKE ONE [facility] NE 75 mg 7-29 TABLET BY ity of tablet 00:00: MOUTH [place] 00 EVERY Medical NIGHT AT [facility] AMITRIPTYLI 0 Yes [id number] TAKE ONE [facility] NE 75 mg 7-29 TABLET BY ity of tablet 00:00: MOUTH [place] 00 EVERY Medical NIGHT AT [facility] AMITRIPTYLI Yes [id number] TAKE ONE [facility] NE 75 mg 7-29 TABLET BY ity of tablet 00:00: MOUTH [place] 00 EVERY Medical NIGHT AT [facility] AMITRIPTYLI Yes [id number] TAKE ONE [facility] NE 75 mg 7-29 TABLET BY ity of tablet 00:00: MOUTH [place] 00 EVERY Medical NIGHT AT [facility] AMITRIPTYLI 0 Yes [id number] TAKE ONE [facility] NE 75 mg 7-29 TABLET BY ity of tablet 00:00: MOUTH [place] 00 EVERY Medical NIGHT AT [facility] AMITRIPTYLI 2021-0 Yes [id number] TAKE ONE [facility] NE 75 mg 7-29 TABLET BY ity of tablet 00:00: MOUTH [place] 00 [facility]0 Yes [id number] TAKE ONE [facility] NE 75 mg 7-29 TABLET BY ity of tablet 00:00: MOUTH [place] 00 EVERY Medical NIGHT AT [facility] AMITRIPTYLI 0 Yes [id number] TAKE ONE [facility] NE 75 mg 7-29 TABLET BY ity of tablet 00:00: MOUTH [place] 00 EVERY Medical NIGHT AT Branch BEDTIME AMITRIPTYLI 0 Yes [id number] TAKE ONE [facility] NE 75 mg 7-29 TABLET BY ity of tablet 00:00: MOUTH [place] 00 EVERY Medical NIGHT AT [place] BEDTIME AMITRIPTYLI 0 Yes [id number] TAKE ONE [facility] NE 75 mg 7-29 TABLET BY ity of tablet 00:00: MOUTH [place] 00 EVERY Medical NIGHT AT [place] BEDTIME AMITRIPTYLI 0 Yes [id number] TAKE ONE [facility] NE 75 mg 7-29 TABLET BY ity of tablet 00:00: MOUTH [place] 00 EVERY Medical NIGHT AT [place] BEDTIME AMITRIPTYLI 0 Yes [id number] TAKE ONE [facility] NE 75 mg 7-29 TABLET BY ity of tablet 00:00: MOUTH [place] 00 EVERY Medical NIGHT AT [place] BEDTIME AMITRIPTYLI 0 3- No [id number] TAKE ONE [facility] NE 75 mg 7-29 01-17 TABLET BY ity o f tablet 00:00: 00:00 MOUTH [place] 00 :00 EVERY Medical NIGHT AT [facility] flash Yes [id number] 1{each} Apply 1 Un gray glucose 7-22 Each to ity of sensor 00:00: skin every [place] (FREESTYLE 00 14 Medical LISANDRO 14 (fourteen) Branc h DAY SENSOR) days. Dx Kit E11.65 simvastatin Yes [id number] 20mg Take 1 [facility] 20 mg 7-22 tablet by ity of tablet 00:00: mouth at [place] 00 bedtime. [facility] lisinopriL- Yes [id number] 1{tbl} Take 1 [facility] hydrochloro 7-22 tablet by ity of thiazide 00:00: mouth in [place] 10-12.5 mg 00 the Medical per tablet morning. Branc h flash Yes [id number] 1{each} Apply 1 Un gray glucose 7-22 Each to ity of sensor 00:00: skin every [place] (FREESTYLE 00 14 Medical LISANDRO 14 (fourteen) Branc h DAY SENSOR) days. Dx Kit E11.65 simvastatin Yes [id number] 20mg Take 1 [facility] 20 mg 7-22 tablet by ity of tablet 00:00: mouth at [place] 00 bedtime. [facility] lisinopriL- Yes [id number] 1{tbl} Take 1 [facility] hydrochloro 7-22 tablet by ity of thiazide 00:00: mouth in [place] 10-12.5 mg 00 the Medical per tablet morning. Branc h flash 0 Yes [id number] 1{each} Apply 1 Un gray glucose 7-22 Each to ity of sensor 00:00: skin every [place] (FREESTYLE 00 14 Medical LISANDRO 14 (fourteen) Branc h DAY SENSOR) days. Dx Kit E11.65 simvastatin Yes [id number] 20mg Take 1 [facility] 20 mg 7-22 tablet by ity of tablet 00:00: mouth at [place] 00 bedtime. Medical Branch lisinopriL- Yes [id number] 1{tbl} Take 1 [facility] hydrochloro 7-22 tablet by ity of thiazide 00:00: mouth in [place] 10-12.5 mg 00 the Medical per tablet morning. Branc h flash 0 Yes [id number] 1{each} Apply 1 Un gray glucose 7-22 Each to ity of sensor 00:00: skin every (FREESTYLE 00 14 Medical LISANDRO 14 (fourteen) Branc h DAY SENSOR) days. Dx Kit E11.65 simvastatin 0 Yes [id number] 20mg Take 1 [facility] 20 mg 7-22 tablet by ity of tablet 00:00: mouth at [place] 00 bedtime. Medical Branch lisinopriL- Yes [id number] 1{tbl} Take 1 [facility] hydrochloro 7-22 tablet by ity of thiazide 00:00: mouth in [place] 10-12.5 mg 00 the Medical per tablet morning. Branc h flash Yes [id number] 1{each} Apply 1 Un gray glucose 7-22 Each to ity of sensor 00:00: skin every [place] (FREESTYLE 00 14 Medical LISANDRO 14 (fourteen) Branc h DAY SENSOR) days. Dx Kit E11.65 simvastatin 0 Yes [id number] 20mg Take 1 [facility] 20 mg 7-22 tablet by ity of tablet 00:00: mouth at [place] 00 bedtime. Medical Branch lisinopriL- Yes [id number] 1{tbl} Take 1 [facility] hydrochloro 7-22 tablet by ity of thiazide 00:00: mouth in [place] 10-12.5 mg 00 the Medical per tablet morning. Branc h flash 0 Yes [id number] 1{each} Apply 1 Un gray glucose 7-22 Each to ity of sensor 00:00: skin every (FREESTYLE 14 Medical LISANDRO 14 (fourteen) Branc h DAY SENSOR) days. Dx Kit E11.65 simvastatin 0 Yes [id number] 20mg Take 1 [facility] 20 mg 7-22 tablet by ity of tablet 00:00: mouth at [place] 00 bedtime. Medical Branch lisinopriL- 0 Yes [id number] 1{tbl} Take 1 [facility] hydrochloro 7-22 tablet by ity of thiazide 00:00: mouth in [place] 10-12.5 mg 00 the Medical per tablet morning. Branc h flash 0 Yes [id number] 1{each} Apply 1 Un gray glucose 7-22 Each to ity of sensor 00:00: skin every [place] (FREESTYLE 14 Medical LISANDRO 14 (fourteen) Branc h DAY SENSOR) days. Dx Kit E11.65 simvastatin 0 Yes [id number] 20mg Take 1 [facility] 20 mg 7-22 tablet by ity of tablet 00:00: mouth at [place] 00 bedtime. Medical Branch lisinopriL- 0 Yes [id number] 1{tbl} Take 1 [facility] hydrochloro 7-22 tablet by ity of thiazide 00:00: mouth in [place] 10-12.5 mg 00 the Medical per tablet morning. Branc h flash 0 Yes [id number] 1{each} Apply 1 Un gray glucose 7-22 Each to ity of sensor 00:00: skin every (FREESTYLE 14 Medical LISANDRO 14 (fourteen) Branc h DAY SENSOR) days. Dx Kit E11.65 simvastatin 0 Yes [id number] 20mg Take 1 [facility] 20 mg 7-22 tablet by ity of tablet 00:00: mouth at [place] 00 bedtime. Medical Branch lisinopriL- 0 Yes [id number] 1{tbl} Take 1 [facility] hydrochloro 7-22 tablet by ity of thiazide 00:00: mouth in [place] 10-12.5 mg 00 the Medical per tablet morning. Branc h flash 0 Yes [id number] 1{each} Apply 1 Un gray glucose 7-22 Each to ity of sensor 00:00: skin every [place] (FREESTYLE 00 14 Medical LISANDRO 14 (fourteen) Branc h DAY SENSOR) days. Dx Kit E11.65 simvastatin 0 Yes [id number] 20mg Take 1 [facility] 20 mg 7-22 tablet by ity of tablet 00:00: mouth at [place] 00 bedtime. Medical Branch lisinopriL- Yes [id number] 1{tbl} Take 1 [facility] hydrochloro 7-22 tablet by ity of thiazide 00:00: mouth in [place] 10-12.5 mg 00 the Medical per tablet morning. Bran h flash 0 Yes [id number] 1{each} Apply 1 Un gray glucose 7-22 Each to ity of sensor 00:00: skin every [place] (FREESTYLE 00 14 Medical LISANDRO 14 (fourteen) Branc h DAY SENSOR) days. Dx Kit E11.65 simvastatin 0 Yes [id number] 20mg Take 1 [facility] 20 mg 7-22 tablet by ity of tablet 00:00: mouth at [place] 00 bedtime. Medical Branch flash 0 Yes [id number] 1{each} Apply 1 Un gray glucose 7-22 Each to ity of sensor 00:00: skin every [place] (FREESTYLE 00 14 Medical LISANDRO 14 (fourteen) Branc h DAY SENSOR) days. Dx Kit E11.65 simvastatin 0 Yes [id number] 20mg Take 1 [facility] 20 mg 7-22 tablet by ity of tablet 00:00: mouth at [place] 00 bedtime. Medical Branch flash 0 Yes [id number] 1{each} Apply 1 Un gray glucose 7-22 Each to ity of sensor 00:00: skin every (FREESTYLE 00 14 Medical LISANDRO 14 (fourteen) Branc h DAY SENSOR) days. Dx Kit E11.65 simvastatin 0 Yes [id number] 20mg Take 1 [facility] 20 mg 7-22 tablet by ity of tablet 00:00: mouth at [place] 00 bedtime. Medical Branch flash 0 Yes [id number] 1{each} Apply 1 Un gray glucose 7-22 Each to ity of sensor 00:00: skin every [place] (FREESTYLE 00 14 Medical LISANDRO 14 (fourteen) Branc h DAY SENSOR) days. Dx Kit E11.65 simvastatin 0 Yes [id number] 20mg Take 1 [facility] 20 mg 7-22 tablet by ity of tablet 00:00: mouth at [place] 00 bedtime. Medical Branch flash 0 Yes [id number] 1{each} Apply 1 Un gray glucose 7-22 Each to ity of sensor 00:00: skin every (FREESTYLE 00 14 Medical LISANDRO 14 (fourteen) Branc h DAY SENSOR) days. Dx Kit E11.65 simvastatin 0 Yes [id number] 20mg Take 1 [facility] 20 mg 7-22 tablet by ity of tablet 00:00: mouth at [place] 00 bedtime. Medical Branch flash 0 Yes [id number] 1{each} Apply 1 Un gray glucose 7-22 Each to ity of sensor 00:00: skin every (FREESTYLE 00 14 Medical LISANDRO 14 (fourteen) Branc h DAY SENSOR) days. Dx Kit E11.65 simvastatin 0 Yes [id number] 20mg Take 1 [facility] 20 mg 7-22 tablet by ity of tablet 00:00: mouth at [place] 00 bedtime. Medical Branch flash 2021-0 Yes [id number] 1{each} Apply 1 Un gray glucose 7-22 Each to ity of sensor 00:00: skin every [place] (FREESTYLE 00 14 Medical LISANDRO 14 (fourteen) Branc h DAY SENSOR) days. Dx Kit E11.65 simvastatin 0 Yes [id number] 20mg Take 1 [facility] 20 mg 7-22 tablet by ity of tablet 00:00: mouth at [place] 00 bedtime. Medical Branch flash 0 Yes [id number] 1{each} Apply 1 Un gray glucose 7-22 Each to ity of sensor 00:00: skin every (FREESTYLE 00 14 Medical LISANDRO 14 (fourteen) Branc h DAY SENSOR) days. Dx Kit E11.65 simvastatin 0 Yes [id number] 20mg Take 1 [facility] 20 mg 7-22 tablet by ity of tablet 00:00: mouth at [place] 00 bedtime. Medical Branch flash 2021-0 Yes [id number] 1{each} Apply 1 Un gray glucose 7-22 Each to ity of sensor 00:00: skin every [place] (FREESTYLE 00 14 Medical LISANDRO 14 (fourteen) Branc h DAY SENSOR) days. Dx Kit E11.65 simvastatin 0 Yes [id number] 20mg Take 1 [facility] 20 mg 7-22 tablet by ity of tablet 00:00: mouth at [place] 00 bedtime. Medical Branch flash 0 Yes [id number] 1{each} Apply 1 Un gray glucose 7-22 Each to ity of sensor 00:00: skin every (FREESTYLE 00 14 Medical LISANDRO 14 (fourteen) Branc h DAY SENSOR) days. Dx Kit E11.65 simvastatin 0 Yes [id number] 20mg Take 1 [facility] 20 mg 7-22 tablet by ity of tablet 00:00: mouth at [place] 00 bedtime. Medical Branch flash 0 Yes [id number] 1{each} Apply 1 Un gray glucose 7-22 Each to ity of sensor 00:00: skin every (FREESTYLE 00 14 Medical LISANDRO 14 (fourteen) Branc h DAY SENSOR) days. Dx Kit E11.65 simvastatin 0 Yes [id number] 20mg Take 1 [facility] 20 mg 7-22 tablet by ity of tablet 00:00: mouth at [place] 00 bedtime. Medical Branch flash 0 Yes [id number] 1{each} Apply 1 Un gray glucose 7-22 Each to ity of sensor 00:00: skin every (FREESTYLE 00 14 Medical LISANDRO 14 (fourteen) Branc h DAY SENSOR) days. Dx Kit E11.65 simvastatin 0 Yes [id number] 20mg Take 1 [facility] 20 mg 7-22 tablet by ity of tablet 00:00: mouth at [place] 00 bedtime. Medical Branch flash 0 Yes [id number] 1{each} Apply 1 Un gray glucose 7-22 Each to ity of sensor 00:00: skin every (FREESTYLE 00 14 Medical LISANDRO 14 (fourteen) Branc h DAY SENSOR) days. Dx Kit E11.65 simvastatin 0 Yes [id number] 20mg Take 1 [facility] 20 mg 7-22 tablet by ity of tablet 00:00: mouth at [place] 00 bedtime. Medical Branch flash 0 Yes [id number] 1{each} Apply 1 Un gray glucose 7-22 Each to ity of sensor 00:00: skin every (FREESTYLE 00 14 Medical LISANDRO 14 (fourteen) Branc h DAY SENSOR) days. Dx Kit E11.65 simvastatin 0 Yes [id number] 20mg Take 1 [facility] 20 mg 7-22 tablet by ity of tablet 00:00: mouth at [place] 00 bedtime. Medical Branch flash 0 Yes [id number] 1{each} Apply 1 Un gray glucose 7-22 Each to ity of sensor 00:00: skin every (FREESTYLE 00 14 Medical LISANDRO 14 (fourteen) Branc h DAY SENSOR) days. Dx Kit E11.65 simvastatin 0 Yes [id number] 20mg Take 1 [facility] 20 mg 7-22 tablet by ity of tablet 00:00: mouth at [place] 00 bedtime. Medical Branch flash 0 Yes [id number] 1{each} Apply 1 Un gray glucose 7-22 Each to ity of sensor 00:00: skin every (FREESTYLE 00 14 Medical LISANDRO 14 (fourteen) Branc h DAY SENSOR) days. Dx Kit E11.65 simvastatin 0 Yes [id number] 20mg Take 1 [facility] 20 mg 7-22 tablet by ity of tablet 00:00: mouth at [place] 00 bedtime. Medical Branch flash 0 Yes [id number] 1{each} Apply 1 Un gray glucose 7-22 Each to ity of sensor 00:00: skin every (FREESTYLE 00 14 Medical LISANDRO 14 (fourteen) Branc h DAY SENSOR) days. Dx Kit E11.65 simvastatin 0 Yes [id number] 20mg Take 1 [facility] 20 mg 7-22 tablet by ity of tablet 00:00: mouth at [place] 00 bedtime. Medical Branch flash 0 Yes [id number] 1{each} Apply 1 Un gray glucose 7-22 Each to ity of sensor 00:00: skin every (FREESTYLE 00 14 Medical LISANDRO 14 (fourteen) Branc h DAY SENSOR) days. Dx Kit E11.65 simvastatin 0 Yes [id number] 20mg Take 1 [facility] 20 mg 7-22 tablet by ity of tablet 00:00: mouth at [place] 00 bedtime. Medical Branch flash 0 Yes [id number] 1{each} Apply 1 Un [place] glucose 7-22 Each to ity of sensor 00:00: skin every [place] (FREESTYLE 00 14 Medical LISANDRO 14 (fourteen) Branc h DAY SENSOR) days. Dx Kit E11.65 simvastatin 0 Yes [id number] 20mg Take 1 [facility] 20 mg 7-22 tablet by ity of tablet 00:00: mouth at [place] 00 bedtime. Medical Branch flash 0 Yes [id number] 1{each} Apply 1 Un gray glucose 7-22 Each to ity of sensor 00:00: skin every (FREESTYLE 00 14 Medical LISANDRO 14 (fourteen) Branc h DAY SENSOR) days. Dx Kit E11.65 simvastatin 0 Yes [id number] 20mg Take 1 [facility] 20 mg 7-22 tablet by ity of tablet 00:00: mouth at [place] 00 bedtime. Medical Branch flash 0 Yes [id number] 1{each} Apply 1 Un gray glucose 7-22 Each to ity of sensor 00:00: skin every (FREESTYLE 00 14 Medical LISANDRO 14 (fourteen) Branc h DAY SENSOR) days. Dx Kit E11.65 simvastatin 0 Yes [id number] 20mg Take 1 [facility] 20 mg 7-22 tablet by ity of tablet 00:00: mouth at [place] 00 bedtime. Medical Branch flash 2021-0 Yes [id number] 1{each} Apply 1 Un gray glucose 7-22 Each to ity of sensor 00:00: skin every (FREESTYLE 00 14 Medical LISANDRO 14 (fourteen) Branc h DAY SENSOR) days. Dx Kit E11.65 simvastatin 0 Yes [id number] 20mg Take 1 [facility] 20 mg 7-22 tablet by ity of tablet 00:00: mouth at [place] 00 bedtime. Medical Branch flash 0 Yes [id number] 1{each} Apply 1 Un gray glucose 7-22 Each to ity of sensor 00:00: skin every (FREESTYLE 00 14 Medical LISANDRO 14 (fourteen) Branc h DAY SENSOR) days. Dx Kit E11.65 simvastatin 0 Yes [id number] 20mg Take 1 [facility] 20 mg 7-22 tablet by ity of tablet 00:00: mouth at [place] 00 bedtime. Medical Branch flash 0 Yes [id number] 1{each} Apply 1 Un gray glucose 7-22 Each to ity of sensor 00:00: skin every [place] (FREESTYLE 00 14 Medical LISANDRO 14 (fourteen) Branc h DAY SENSOR) days. Dx Kit E11.65 simvastatin 0 Yes [id number] 20mg Take 1 [facility] 20 mg 7-22 tablet by ity of tablet 00:00: mouth at [place] 00 bedtime. Medical Branch flash 2021-0 Yes [id number] 1{each} Apply 1 Un gray glucose 7-22 Each to ity of sensor 00:00: skin every (FREESTYLE 00 14 Medical LISANDRO 14 (fourteen) Branc h DAY SENSOR) days. Dx Kit E11.65 simvastatin 0 Yes [id number] 20mg Take 1 [facility] 20 mg 7-22 tablet by ity of tablet 00:00: mouth at [place] 00 bedtime. Medical Branch flash 0 Yes [id number] 1{each} Apply 1 Un gray glucose 7-22 Each to ity of sensor 00:00: skin every (FREESTYLE 00 14 Medical LISANDRO 14 (fourteen) Branc h DAY SENSOR) days. Dx Kit E11.65 simvastatin 0 Yes [id number] 20mg Take 1 [facility] 20 mg 7-22 tablet by ity of tablet 00:00: mouth at [place] 00 bedtime. Medical Branch flash 0 Yes [id number] 1{each} Apply 1 Un gray glucose 7-22 Each to ity of sensor 00:00: skin every (FREESTYLE 14 Medical LISANDRO 14 (fourteen) Branc h DAY SENSOR) days. Dx Kit E11.65 simvastatin 0 Yes [id number] 20mg Take 1 [facility] 20 mg 7-22 tablet by ity of tablet 00:00: mouth at [place] 00 bedtime. Medical Branch flash 0 Yes [id number] 1{each} Apply 1 Un gray glucose 7-22 Each to ity of sensor 00:00: skin every (FREESTYLE 00 14 Medical LISANDRO 14 (fourteen) Branc h DAY SENSOR) days. Dx Kit E11.65 simvastatin 0 Yes [id number] 20mg Take 1 [facility] 20 mg 7-22 tablet by ity of tablet 00:00: mouth at [place] 00 bedtime. Medical Branch flash 2021-0 Yes [id number] 1{each} Apply 1 Un gray glucose 7-22 Each to ity of sensor 00:00: skin every (FREESTYLE 00 14 Medical LISANDRO 14 (fourteen) Branc h DAY SENSOR) days. Dx Kit E11.65 simvastatin 0 Yes [id number] 20mg Take 1 [facility] 20 mg 7-22 tablet by ity of tablet 00:00: mouth at [place] 00 bedtime. Medical Branch flash 0 Yes [id number] 1{each} Apply 1 Un gray glucose 7-22 Each to ity of sensor 00:00: skin every (FREESTYLE 00 14 Medical LISANDRO 14 (fourteen) Branc h DAY SENSOR) days. Dx Kit E11.65 simvastatin 2021-0 Yes [id number] 20mg Take 1 [facility] 20 mg 7-22 tablet by ity of tablet 00:00: mouth at [place] 00 bedtime. Medical Branch flash 2021-0 Yes [id number] 1{each} Apply 1 Un gray glucose 7-22 Each to ity of sensor 00:00: skin every (FREESTYLE 00 14 Medical LISANDRO 14 (fourteen) Branc h DAY SENSOR) days. Dx Kit E11.65 simvastatin 2021-0 Yes [id number] 20mg Take 1 [facility] 20 mg 7-22 tablet by ity of tablet 00:00: mouth at [place] [address] bedtime. Medical Branch simvastatin 2021-0 Yes [id number] 20mg Take 1 [facility] 20 mg 7-22 tablet by ity of tablet 00:00: mouth at [place] [address] bedtime. Medical Branch simvastatin 2021-0 Yes [id number] 20mg Take 1 [facility] 20 mg 7-22 tablet by ity of tablet 00:00: mouth at [place] [address] bedtime. Medical Branch simvastatin 2021-0 Yes [id number] 20mg Take 1 [facility] 20 mg 7-22 tablet by ity of tablet 00:00: mouth at [place] [address] bedtime. Medical Branch simvastatin 2021-0 Yes [id number] 20mg Take 1 [facility] 20 mg 7-22 tablet by ity of tablet 00:00: mouth at [place] [address] bedtime. Medical Branch simvastatin 2-0 Yes [id number] 20mg Take 1 [facility] 20 mg 7-22 tablet by ity of tablet 00:00: mouth at [place] [address] bedtime. Medical Branch simvastatin 2021-0 Yes [id number] 20mg Take 1 [facility] 20 mg 7-22 tablet by ity of tablet 00:00: mouth at [place] [address] bedtime. Medical Branch simvastatin 2-0 Yes [id number] 20mg Take 1 [facility] 20 mg 7-22 tablet by ity of tablet 00:00: mouth at [place] [address] bedtime. Medical Branch simvastatin 2021-0 Yes [id number] 20mg Take 1 [facility] 20 mg 7-22 tablet by ity of tablet 00:00: mouth at [place] [address] bedtime. Medical Branch simvastatin 2021-0 Yes [id number] 20mg Take 1 [facility] 20 mg 7-22 tablet by ity of tablet 00:00: mouth at [place] 00 bedtime. Medical Branch simvastatin Yes [id number] 20mg Take 1 [facility] 20 mg 7-22 tablet by ity of tablet 00:00: mouth at [place] 00 bedtime. Medical Branch simvastatin Yes [id number] 20mg Take 1 [facility] 20 mg 7-22 tablet by ity of tablet 00:00: mouth at [place] 00 bedtime. Medical Branch simvastatin Yes [id number] 20mg Take 1 [facility] 20 mg 7-22 tablet by ity of tablet 00:00: mouth at [place] 00 bedtime. Medical Branch simvastatin 2022- No [id number] 20mg Take 1 [facility] 20 mg 7-22 05-27 tablet by ity of tablet 00:00: 00:00 mouth at [place] 00 :00 bedtime. Medical Branch flash 2022- No [id number] 1{each} Apply 1 [facility] glucose 02-22 03-04 Each to ity of sensor 00:00: 00:00 skin every [place] (FREESTYLE 00 :00 14 Medical LISANDRO 14 (fourteen) Bran h DAY SENSOR) days. Dx Kit E11.65 lisinopriL- 2021- No [id number] 1{tbl} Take 1 [facility] hydrochloro 7-22 10-13 tablet by it y of thiazide 00:00: 00:00 mouth [place] 10-12.5 mg 00 :00 the Medical per tablet morning. Bran h lisinopriL- 2021- No [id number] 1{tbl} Take 1 [facility] hydrochloro 7-22 10-13 tablet by it y of thiazide 00:00: 00:00 mouth [place] 10-12.5 mg 00 :00 the Medical per tablet morning. Bran h FREESTYLE 2021- No [id number] APPLY 1 [facility] LISANDRO 14 08 07-22 EACH TO ity of DAY SENSOR 00:00: 00:00 SKIN EVERY [place] Kit 00 :00 14 DAYS, Medical CHANGE Branch SENSOR EVERY 14 DAYS HYDROcodone Yes 1{tbl} Take 1 Un gray -acetaminop 6-08 tablet by ity of hen 10-325 11:59: mouth [place] mg tablet 40 every 6 Medical (six) Branch hours as needed. HYDROcodone 2022-0 Yes 1{tbl} Take 1 Un gray -acetaminop 6-08 tablet by ity of hen 10-325 11:59: mouth [place] mg tablet 40 every 6 Medical (six) Branch hours as needed. HYDROcodone 2022-0 Yes 1{tbl} Take 1 Un gray -acetaminop 6-08 tablet by ity of hen 10-325 11:59: mouth [place] mg tablet 40 every 6 Medical (six) Branch hours as needed. HYDROcodone 2022-0 Yes 1{tbl} Take 1 Un gray -acetaminop 6-08 tablet by ity of hen 10-325 11:59: mouth [place] mg tablet 40 every 6 Medical (six) Branch hours as needed. HYDROcodone 2022-0 Yes 1{tbl} Take 1 Un gray -acetaminop 6-08 tablet by ity of hen 10-325 11:59: mouth [place] mg tablet 40 every 6 Medical (six) Branch hours as needed. HYDROcodone 2022-0 Yes 1{tbl} Take 1 Un gray -acetaminop 6-08 tablet by ity of hen 10-325 11:59: mouth [place] mg tablet 40 every 6 Medical (six) Branch hours as needed. HYDROcodone 2022-0 Yes 1{tbl} Take 1 [facility] -acetaminop 6-08 tablet by [facility] of hen 10-325 11:59: mouth [place] mg tablet 40 every 6 Medical (six) Branch hours as needed. HYDROcodone 2022-0 Yes 1{tbl} Take 1 [facility] -acetaminop 6-08 tablet by [facility]y of hen 10-325 11:59: mouth [place] mg tablet 40 every 6 Medical (six) Branch hours as needed. HYDROcodone 2022-0 Yes 1{tbl} Take 1 [facility] -acetaminop 6-08 tablet by [facility]y of hen 10-325 11:59: mouth [place] mg tablet 40 every 6 Medical (six) Branch hours as needed. buPROPion 2021-2021- No [id number] 300mg Take 1 [facility] XL 300 mg 6-08 08-17 tablet by ity of 24 hr 00:00: 00:00 mouth [place] tablet 00 :00 daily. Medical Branch hydrOXYzine 2021-2021- No [id number] 25mg Take 1 [facility] 25 mg 01-0917 tablet by ity of tablet 00:00: 00:00 mouth [place] 00 :00 every 8 Medical (eight) Branch hours as needed for Anxiety or Other (nasal congestion / anxiety). buPROPion 2021- No [id number] 300mg Take 1 [facility] XL 300 mg 01-09 tablet by ity of 24 hr 00:00: 00:00 mouth [place] tablet 00 :00 daily. Medical Branch hydrOXYzine 2021- No [id number] 25mg Take 1 [facility] 25 mg 01-09 tablet by ity of tablet 00:00: 00:00 mouth [place] 00 :00 every 8 Medical (eight) Branch hours as needed for Anxiety or Other (nasal congestion / anxiety). SYMBICORT Yes [id number] INHALE TWO [facility] 80-4.5 5-20 PUFFS BY ity of mcg/actuati 00:00: MOUTH [place] on inhaler 00 TWICE A Medica l DAY Branch MONTELUKAST 0 Yes [id number] TAKE ONE [facility] 10 mg 5-20 TABLET BY ity of tablet 00:00: MOUTH [place] DAILY Medical Branch SYMBICORT Yes [id number] INHALE TWO [facility] 80-4.5 5-20 PUFFS BY ity of mcg/actuati 00:00: MOUTH [place] on inhaler 00 TWICE A Medica l DAY Branch MONTELUKAST 0 Yes [id number] TAKE ONE [facility] 10 mg 5-20 TABLET BY ity of tablet 00:00: MOUTH [place] DAILY Medical Branch SYMBICORT 0 Yes [id number] INHALE TWO [facility] 80-4.5 5-20 PUFFS BY ity of mcg/actuati 00:00: MOUTH [place] on inhaler 00 TWICE A Medica l DAY Branch MONTELUKAST 0 Yes [id number] TAKE ONE [facility] 10 mg 5-20 TABLET BY ity of tablet 00:00: MOUTH [place] DAILY Medical Branch SYMBICORT 0 Yes [id number] INHALE TWO [facility] 80-4.5 5-20 PUFFS BY ity of mcg/actuati 00:00: MOUTH [place] on inhaler 00 TWICE A Medica l DAY Branch SYMBICORT 0 Yes [id number] INHALE TWO [facility] 80-4.5 5-20 PUFFS BY ity of mcg/actuati 00:00: MOUTH [place] on inhaler 00 TWICE A Medica l DAY Branch SYMBICORT 0 Yes [id number] INHALE TWO [facility] 80-4.5 5-20 PUFFS BY ity of mcg/actuati 00:00: MOUTH [place] on inhaler 00 TWICE A Medica l DAY Branch SYMBICORT 0 Yes [id number] INHALE TWO [facility] 80-4.5 5-20 PUFFS BY ity of mcg/actuati 00:00: MOUTH [place] on inhaler 00 TWICE A Medica l DAY Branch SYMBICORT Yes [id number] INHALE TWO [facility] 80-4.5 5-20 PUFFS BY ity of mcg/actuati 00:00: MOUTH [place] on inhaler 00 TWICE A Medica l DAY Branch SYMBICORT Yes [id number] INHALE TWO [facility] 80-4.5 5-20 PUFFS BY ity of mcg/actuati 00:00: MOUTH [place] on inhaler 00 TWICE A Medica [facility] DAY Branch SYMBICORT Yes [id number] INHALE TWO [facility] 80-4.5 5-20 PUFFS BY ity of mcg/actuati 00:00: MOUTH [place] on inhaler 00 TWICE A Medica l DAY Branch SYMBICORT 0 Yes [id number] INHALE TWO [facility] 80-4.5 5-20 PUFFS BY ity of mcg/actuati 00:00: MOUTH [place] on inhaler 00 TWICE A Medica [facility] DAY Branch SYMBICORT 0 Yes [id number] INHALE TWO [facility] 80-4.5 5-20 PUFFS BY ity of mcg/actuati 00:00: MOUTH [place] on inhaler 00 TWICE A Medica l DAY Branch SYMBICORT 0 Yes [id number] INHALE TWO [facility] 80-4.5 5-20 PUFFS BY ity of mcg/actuati 00:00: MOUTH [place] on inhaler 00 TWICE A Medica [facility] DAY Branch SYMBICORT 0 Yes [id number] INHALE TWO [facility] 80-4.5 5-20 PUFFS BY ity of mcg/actuati 00:00: MOUTH [place] on inhaler 00 TWICE A Medica [facility] DAY Branch SYMBICORT 0 Yes [id number] INHALE TWO [facility] 80-4.5 5-20 PUFFS BY ity of mcg/actuati 00:00: MOUTH [place] on inhaler 00 TWICE A [facility]ica [facility] DAY Branch SYMBICORT 0 Yes [id number] INHALE TWO [facility] 80-4.5 5-20 PUFFS BY ity of mcg/actuati 00:00: MOUTH [place] on inhaler 00 TWICE A Medica [facility] DAY Branch SYMBICORT Yes [id number] INHALE TWO [facility] 80-4.5 5-20 PUFFS BY ity of mcg/actuati 00:00: MOUTH [place] on inhaler 00 TWICE A Medica [facility] DAY Branch SYMBICORT Yes [id number] INHALE TWO [facility] 80-4.5 5-20 PUFFS BY ity of mcg/actuati 00:00: MOUTH [place] on inhaler 00 TWICE A Medica [facility] DAY Branch SYMBICORT Yes [id number] INHALE TWO [facility] 80-4.5 5-20 PUFFS BY ity of mcg/actuati 00:00: MOUTH [place] on inhaler 00 TWICE A Medica [facility] DAY Branch SYMBICORT Yes [id number] INHALE TWO [facility] 80-4.5 5-20 PUFFS BY ity of mcg/actuati 00:00: MOUTH [place] on inhaler 00 TWICE A [facility]ica [facility] DAY Branch SYMBICORT 0 Yes [id number] INHALE TWO [facility] 80-4.5 5-20 PUFFS BY ity of mcg/actuati 00:00: MOUTH [place] on inhaler 00 TWICE A [facility]ica [facility] DAY Branch SYMBICORT 0 Yes [id number] INHALE TWO [facility] 80-4.5 5-20 PUFFS BY ity of mcg/actuati 00:00: MOUTH [place] on inhaler 00 TWICE A [facility]ica [facility] DAY Branch SYMBICORT 0 Yes [id number] INHALE TWO [facility] 80-4.5 5-20 PUFFS BY ity of mcg/actuati 00:00: MOUTH [place] on inhaler 00 TWICE A [facility]ica [facility] DAY Branch SYMBICORT 0 Yes [id number] INHALE TWO [facility] 80-4.5 5-20 PUFFS BY ity of mcg/actuati 00:00: MOUTH [place] on inhaler 00 TWICE A Medica [facility] DAY Branch SYMBICORT 0 Yes [id number] INHALE TWO [facility] 80-4.5 5-20 PUFFS BY ity of mcg/actuati 00:00: MOUTH [place] on inhaler 00 TWICE A Medica [facility] DAY Branch SYMBICORT 2021-0 Yes [id number] INHALE TWO [facility] 80-4.5 5-20 PUFFS BY ity of mcg/actuati 00:00: MOUTH [place] on inhaler 00 TWICE A Medica [facility] DAY Branch SYMBICORT 0 Yes [id number] INHALE TWO [facility] 80-4.5 5-20 PUFFS BY ity of mcg/actuati 00:00: MOUTH [place] on inhaler 00 TWICE A Medica [facility] DAY Branch SYMBICORT 0 Yes [id number] INHALE TWO [facility] 80-4.5 5-20 PUFFS BY ity of mcg/actuati 00:00: MOUTH [place] on inhaler 00 TWICE A Medica [facility] DAY Branch SYMBICORT 0 Yes [id number] INHALE TWO [facility] 80-4.5 5-20 PUFFS BY ity of mcg/actuati 00:00: MOUTH [place] on inhaler 00 TWICE A Medica [facility] DAY Branch SYMBICORT 0 Yes [id number] INHALE TWO [facility] 80-4.5 5-20 PUFFS BY ity of mcg/actuati 00:00: MOUTH [place] on inhaler 00 TWICE A Medica l DAY Branch SYMBICORT 0 Yes [id number] INHALE TWO [facility] 80-4.5 5-20 PUFFS BY ity of mcg/actuati 00:00: MOUTH [place] on inhaler 00 TWICE A Medica [facility] DAY Branch SYMBICORT 2021-0 Yes [id number] INHALE TWO [facility] 80-4.5 5-20 PUFFS BY ity of mcg/actuati 00:00: MOUTH [place] on inhaler 00 TWICE A Medica [facility] DAY Branch SYMBICORT 2021-0 Yes [id number] INHALE TWO [facility] 80-4.5 5-20 PUFFS BY ity of mcg/actuati 00:00: MOUTH [place] on inhaler 00 TWICE A Medica [facility] DAY Branch SYMBICORT 2021-0 Yes [id number] INHALE TWO [facility] 80-4.5 5-20 PUFFS BY ity of mcg/actuati 00:00: MOUTH [place] on inhaler 00 TWICE A Medica [facility] DAY Branch SYMBICORT 0 Yes [id number] INHALE TWO [facility] 80-4.5 5-20 PUFFS BY ity of mcg/actuati 00:00: MOUTH [place] on inhaler 00 TWICE A Medica [facility] DAY Branch SYMBICORT 0 Yes [id number] INHALE TWO [facility] 80-4.5 5-20 PUFFS BY ity of mcg/actuati 00:00: MOUTH [place] on inhaler 00 TWICE A Medica l DAY Branch SYMBICORT 0 Yes [id number] INHALE TWO [facility] 80-4.5 5-20 PUFFS BY ity of mcg/actuati 00:00: MOUTH [place] on inhaler 00 TWICE A Medica [facility] DAY Branch SYMBICORT Yes [id number] INHALE TWO [facility] 80-4.5 5-20 PUFFS BY ity of mcg/actuati 00:00: MOUTH [place] on inhaler 00 TWICE A Medica [facility] DAY Branch SYMBICORT 0 Yes [id number] INHALE TWO [facility] 80-4.5 5-20 PUFFS BY ity of mcg/actuati 00:00: MOUTH [place] on inhaler 00 TWICE A Medica l DAY Branch SYMBICORT 0 Yes [id number] INHALE TWO [facility] 80-4.5 5-20 PUFFS BY ity of mcg/actuati 00:00: MOUTH [place] on inhaler 00 TWICE A Medica l DAY Branch SYMBICORT 0 Yes [id number] INHALE TWO [facility] 80-4.5 5-20 PUFFS BY ity of mcg/actuati 00:00: MOUTH [place] on inhaler 00 TWICE A Medica l DAY Branch SYMBICORT 0 Yes [id number] INHALE TWO [facility] 80-4.5 5-20 PUFFS BY ity of mcg/actuati 00:00: MOUTH [place] on inhaler 00 TWICE A Medica l DAY Branch SYMBICORT 0 Yes [id number] INHALE TWO [facility] 80-4.5 5-20 PUFFS BY ity of mcg/actuati 00:00: MOUTH [place] on inhaler 00 TWICE A Medica l DAY Branch SYMBICORT 0 Yes [id number] INHALE TWO [facility] 80-4.5 5-20 PUFFS BY ity of mcg/actuati 00:00: MOUTH [place] on inhaler 00 TWICE A Medica l DAY Branch SYMBICORT Yes [id number] INHALE TWO [facility] 80-4.5 5-20 PUFFS BY ity of mcg/actuati 00:00: MOUTH [place] on inhaler 00 TWICE A Medica [facility] DAY Branch SYMBICORT Yes [id number] INHALE TWO [facility] 80-4.5 5-20 PUFFS BY ity of mcg/actuati 00:00: MOUTH [place] on inhaler 00 TWICE A Medica [facility] DAY Branch SYMBICORT Yes [id number] INHALE TWO [facility] 80-4.5 5-20 PUFFS BY ity of mcg/actuati 00:00: MOUTH [place] on inhaler 00 TWICE A Medica [facility] DAY Branch SYMBICORT Yes [id number] INHALE TWO [facility] 80-4.5 5-20 PUFFS BY ity of mcg/actuati 00:00: MOUTH [place] on inhaler 00 TWICE A Medica [facility] DAY Branch SYMBICORT Yes [id number] INHALE TWO [facility] 80-4.5 5-20 PUFFS BY ity of mcg/actuati 00:00: MOUTH [place] on inhaler 00 TWICE A Medica l DAY Branch SYMBICORT Yes [id number] INHALE TWO [facility] 80-4.5 5-20 PUFFS BY ity of mcg/actuati 00:00: MOUTH [place] on inhaler 00 TWICE A Medica l DAY Branch SYMBICORT Yes [id number] INHALE TWO [facility] 80-4.5 5-20 PUFFS BY ity of mcg/actuati 00:00: MOUTH [place] on inhaler 00 TWICE A Medica [facility] DAY Branch SYMBICORT Yes [id number] INHALE TWO [facility] 80-4.5 5-20 PUFFS BY ity of mcg/actuati 00:00: MOUTH [place] on inhaler 00 TWICE A Medica [facility] DAY Branch SYMBICORT Yes [id number] INHALE TWO [facility] 80-4.5 5-20 PUFFS BY ity of mcg/actuati 00:00: MOUTH [place] on inhaler 00 TWICE A Medica l DAY Branch SYMBICORT Yes [id number] INHALE TWO [facility] 80-4.5 5-20 PUFFS BY ity of mcg/actuati 00:00: MOUTH [place] on inhaler 00 TWICE A Medica l DAY Branch SYMBICORT Yes [id number] INHALE TWO [facility] 80-4.5 5-20 PUFFS BY ity of mcg/actuati 00:00: MOUTH [place] on inhaler 00 TWICE A Medica l DAY Branch SYMBICORT Yes [id number] INHALE TWO [facility] 80-4.5 5-20 PUFFS BY ity of mcg/actuati 00:00: MOUTH [place] on inhaler 00 TWICE A Medica l DAY Branch SYMBICORT 2023- No [id number] INHALE TWO [facility] 80-4.5 5-20 06-13 PUFFS BY ity of mcg/actuati 00:00: 00:00 MOUTH [place] inhaler 00 :00 TWICE A [facility]ica [facility] DAY Branch SYMBICORT 2023- No [id number] INHALE TWO [facility] 80-4.5 5-20 06-13 PUFFS BY ity of mcg/actuati 00:00: 00:00 MOUTH [place] on inhaler 00 :00 TWICE A [facility]ica [facility] DAY Branch SYMBICORT 2023- No [id number] INHALE TWO [facility] 80-4.5 5-20 06-13 PUFFS BY ity of mcg/actuati 00:00: 00:00 MOUTH [place] on inhaler 00 :00 TWICE A [facility]ica [facility] DAY Branch SYMBICORT 2023- No [id number] INHALE TWO [facility] 80-4.5 5-20 06-13 PUFFS BY ity of mcg/actuati 00:00: 00:00 MOUTH [place] on inhaler 00 :00 TWICE A [facility]ica [facility] DAY Branch SYMBICORT 2023- No [id number] INHALE TWO [facility] 80-4.5 5-20 06-13 PUFFS BY ity of mcg/actuati 00:00: 00:00 MOUTH [place] on inhaler 00 :00 TWICE A [facility]ica [facility] DAY Branch SYMBICORT 2023- No [id number] INHALE TWO [facility] 80-4.5 5-20 06-13 PUFFS BY ity of mcg/actuati 00:00: 00:00 MOUTH [place] on inhaler 00 :00 TWICE A Medica l DAY Branch MONTELUKAST 0 2021- No [id number] TAKE ONE [facility] 10 mg 5-20 08-30 TABLET BY ity of tablet 00:00: 00:00 MOUTH [place] 00 :00 DAILY Medical Branch MONTELUKAST 2021-0 2021- No [id number] TAKE ONE [facility] 10 mg 5-20 08-30 TABLET BY ity of tablet 00:00: 00:00 MOUTH [place] 00 :00 DAILY Medical Branch insulin Yes [id number] Inject Univ ers aspart 4-26 10-25 ity of U-100 00:00: units 3 (NOVOLOG 00 times Medical FLEXPEN daily with Branch U-100 meals, INSULIN) plus 100 unit/mL sliding (3 mL) scale. Max injection daily dose 75 units insulin Yes [id number] 64U inject 64 U nivers degludec 4-26 Units ity of (TRESIBA 00:00: under the [place] FLEXTOUCH 00 skin Medical U-200) 200 daily. Branch unit/mL (3 mL) InPn insulin Yes [id number] Inject Univ ers aspart 4-26 10-25 ity of U-100 00:00: units 3 (NOVOLOG times Medical FLEXPEN daily with Branch U-100 meals, INSULIN) plus 100 unit/mL sliding (3 mL) scale. Max injection daily dose 75 units insulin Yes [id number] 64U inject 64 U nivers degludec 4-26 Units ity of (TRESIBA 00:00: under the [place] FLEXTOUCH skin Medical U-200) 200 daily. Branch unit/mL (3 mL) InPn insulin Yes [id number] Inject Univ ers aspart 4-26 10-25 ity of U-100 00:00: units 3 (NOVOLOG 00 times Medical FLEXPEN daily with Branch U-100 meals, INSULIN) plus 100 unit/mL sliding (3 mL) scale. Max injection daily dose 75 units insulin Yes [id number] 64U inject 64 U nivers degludec 4-26 Units ity of (TRESIBA 00:00: under the [place] FLEXTOUCH 00 skin Medical U-200) 200 daily. Branch unit/mL (3 mL) InPn insulin Yes [id number] Inject Univ ers aspart 4-26 10-25 ity of U-100 00:00: units 3 [place] (NOVOLOG 00 times Medical FLEXPEN daily with Branch U-100 meals, INSULIN) plus 100 unit/mL sliding (3 mL) scale. Max injection daily dose 75 units insulin Yes [id number] 64U inject 64 U nivers degludec 4-26 Units ity of (TRESIBA 00:00: under the [employer] FLEXTOUCH 00 skin Medical U-200) 200 daily. Branch unit/mL (3 mL) InPn insulin Yes [id number] Inject Univ ers aspart 4-26 10-25 ity of U-100 00:00: units 3 [place] (NOVOLOG 00 times Medical FLEXPEN daily with Branch U-100 meals, INSULIN) plus 100 unit/mL sliding (3 mL) scale. Max injection daily dose 75 units insulin Yes [id number] 64U inject 64 U nivers degludec 4-26 Units ity of (TRESIBA 00:00: under the [place] [employer] FLEXTOUCH 00 skin Medical U-200) 200 daily. Branch unit/mL (3 mL) InPn insulin Yes [id number] Inject Univ ers aspart 4-26 10-25 ity of U-100 00:00: units 3 [place] (NOVOLOG 00 times Medical FLEXPEN daily with Branch U-100 meals, INSULIN) plus 100 unit/mL sliding (3 mL) scale. Max injection daily dose 75 units insulin Yes [id number] 64U inject 64 U nivers degludec 4-26 Units ity of (TRESIBA 00:00: under the [employer] FLEXTOUCH 00 skin Medical U-200) 200 daily. Branch unit/mL (3 mL) InPn insulin Yes [id number] Inject Univ ers aspart 4-26 10-25 ity of U-100 00:00: units 3 [place] (NOVOLOG 00 times Medical FLEXPEN daily with Branch U-100 meals, INSULIN) plus 100 unit/mL sliding (3 mL) scale. Max injection daily dose 75 units insulin Yes [id number] 64U inject 64 U nivers degludec 4-26 Units ity of (TRESIBA 00:00: under the [place] [employer] FLEXTOUCH 00 skin Medical U-200) 200 daily. Branch unit/mL (3 mL) InPn insulin Yes [id number] Inject Univ ers aspart 4-26 10-25 ity of U-100 00:00: units 3 [place] (NOVOLOG 00 times Medical FLEXPEN daily with Branch U-100 meals, INSULIN) plus 100 unit/mL sliding (3 mL) scale. Max injection daily dose 75 units insulin Yes [id number] 64U inject 64 U nivers degludec 4-26 Units ity of (TRESIBA 00:00: under the [place] FLEXTOUCH 00 skin Medical U-200) 200 daily. Branch unit/mL (3 mL) InPn insulin Yes [id number] Inject Univ ers aspart 4-26 10-25 ity of U-100 00:00: units 3 [place] (NOVOLOG 00 times Medical FLEXPEN daily with Branch U-100 meals, INSULIN) plus 100 unit/mL sliding (3 mL) scale. Max injection daily dose 75 units insulin Yes [id number] 64U inject 64 U nivers degludec 4-26 Units ity of (TRESIBA 00:00: under the [place] FLEXTOUCH 00 skin Medical U-200) 200 daily. Branch unit/mL (3 mL) InPn insulin Yes [id number] Inject Univ ers aspart 4-26 10-25 ity of U-100 00:00: units 3 [place] (NOVOLOG 00 times Medical FLEXPEN daily with Branch U-100 meals, INSULIN) plus 100 unit/mL sliding (3 mL) scale. Max injection daily dose 75 units insulin Yes [id number] 64U inject 64 U nivers degludec 4-26 Units ity of (TRESIBA 00:00: under the [place] FLEXTOUCH 00 skin Medical U-200) 200 daily. Branch unit/mL (3 mL) InPn insulin Yes [id number] Inject Univ ers aspart 4-26 10-25 ity of U-100 00:00: units 3 [place] (NOVOLOG 00 times Medical FLEXPEN daily with Branch U-100 meals, INSULIN) plus 100 unit/mL sliding (3 mL) scale. Max injection daily dose 75 units insulin Yes [id number] 64U inject 64 U nivers degludec 4-26 Units ity of (TRESIBA 00:00: under the [place] [employer] FLEXTOUCH 00 skin Medical U-200) 200 daily. Branch unit/mL (3 mL) InPn insulin Yes [id number] Inject Univ ers aspart 4-26 10-25 ity of U-100 00:00: units 3 [place] (NOVOLOG 00 times Medical FLEXPEN daily with Branch U-100 meals, INSULIN) plus 100 unit/mL sliding (3 mL) scale. Max injection daily dose 75 units insulin Yes [id number] 64U inject 64 U nivers degludec 4-26 Units ity of (TRESIBA 00:00: under the [place] [employer] FLEXTOUCH 00 skin Medical U-200) 200 daily. Branch unit/mL (3 mL) InPn insulin Yes [id number] Inject Univ ers aspart 4-26 10-25 ity of U-100 00:00: units 3 [place] (NOVOLOG 00 times Medical FLEXPEN daily with Branch U-100 meals, INSULIN) plus 100 unit/mL sliding (3 mL) scale. Max injection daily dose 75 units insulin Yes [id number] 64U inject 64 U nivers degludec 4-26 Units ity of (TRESIBA 00:00: under the [place] [employer] FLEXTOUCH 00 skin Medical U-200) 200 daily. Branch unit/mL (3 mL) InPn insulin Yes [id number] Inject Univ ers aspart 4-26 10-25 ity of U-100 00:00: units 3 [place] (NOVOLOG 00 times Medical FLEXPEN daily with Branch U-100 meals, INSULIN) plus 100 unit/mL sliding (3 mL) scale. Max injection daily dose 75 units insulin Yes [id number] 64U inject 64 U nivers degludec 4-26 Units ity of (TRESIBA 00:00: under the [place] [employer] FLEXTOUCH 00 skin Medical U-200) 200 daily. Branch unit/mL (3 mL) InPn insulin Yes [id number] Inject Univ ers aspart 4-26 10-25 ity of U-100 00:00: units 3 [place] (NOVOLOG 00 times Medical FLEXPEN daily with Branch U-100 meals, INSULIN) plus 100 unit/mL sliding (3 mL) scale. Max injection daily dose 75 units insulin Yes [id number] 64U inject 64 U nivers degludec 4-26 Units ity of (TRESIBA 00:00: [place] FLEXT[place]CH 00 skin Medical U-200) 200 daily. Branch unit/mL (3 mL) InPn insulin Yes [id number] Inject Univ ers aspart 4-26 10-25 ity of U-100 00:00: units 3 [place] (NOVOLOG 00 times Medical FLEXPEN daily with Branch U-100 meals, INSULIN) plus 100 unit/mL sliding (3 mL) scale. Max injection daily dose 75 units insulin Yes [id number] 64U inject 64 U nivers degludec 4-26 Units ity of (TRESIBA 00:00: under the [place] [employer] FLEXTOUCH 00 skin Medical U-200) 200 daily. Branch unit/mL (3 mL) InPn insulin Yes [id number] Inject Univ ers aspart 4-26 10-25 ity of U-100 00:00: units 3 [place] (NOVOLOG 00 times Medical FLEXPEN daily with Branch U-100 meals, INSULIN) plus 100 unit/mL sliding (3 mL) scale. Max injection daily dose 75 units insulin Yes [id number] 64U inject 64 U nivers degludec 4-26 Units ity of (TRESIBA 00:00: under the [place] [employer] FLEXTOUCH 00 skin Medical U-200) 200 daily. Branch unit/mL (3 mL) InPn insulin Yes [id number] Inject Univ ers aspart 4-26 10-25 ity of U-100 00:00: units 3 [place] (NOVOLOG 00 times Medical FLEXPEN daily with Branch U-100 meals, INSULIN) plus 100 unit/mL sliding (3 mL) scale. Max injection daily dose 75 units insulin Yes [id number] 64U inject 64 U nivers degludec 4-26 Units ity of (TRESIBA 00:00: under the [place] [employer] FLEXTOUCH 00 skin Medical U-200) 200 daily. Branch unit/mL (3 mL) InPn insulin Yes [id number] Inject Univ ers aspart 4-26 10-25 ity of U-100 00:00: units 3 [place] (NOVOLOG 00 times Medical FLEXPEN daily with Branch U-100 meals, INSULIN) plus 100 unit/mL sliding (3 mL) scale. Max injection daily dose 75 units insulin Yes [id number] 64U inject 64 U nivers degludec 4-26 Units ity of (TRESIBA 00:00: [place] FLEXT[place]CH 00 skin Medical U-200) 200 daily. Branch unit/mL (3 mL) InPn insulin Yes [id number] Inject Univ ers aspart 4-26 10-25 ity of U-100 00:00: units 3 [place] (NOVOLOG 00 times Medical FLEXPEN daily with Branch U-100 meals, INSULIN) plus 100 unit/mL sliding (3 mL) scale. Max injection daily dose 75 units insulin Yes [id number] 64U inject 64 U nivers degludec 4-26 Units ity of (TRESIBA 00:00: under the [place] [employer] FLEXTOUCH 00 skin Medical U-200) 200 daily. Branch unit/mL (3 mL) InPn insulin Yes [id number] Inject Univ ers aspart 4-26 10-25 ity of U-100 00:00: units 3 [place] (NOVOLOG 00 times Medical FLEXPEN daily with Branch U-100 meals, INSULIN) plus 100 unit/mL sliding (3 mL) scale. Max injection daily dose 75 units insulin Yes [id number] 64U inject 64 U nivers degludec 4-26 Units ity of (TRESIBA 00:00: under the [place] [employer] FLEXTOUCH 00 skin Medical U-200) 200 daily. Branch unit/mL (3 mL) InPn insulin Yes [id number] Inject Univ ers aspart 4-26 10-25 ity of U-100 00:00: units 3 [place] (NOVOLOG 00 times Medical FLEXPEN daily with Branch U-100 meals, INSULIN) plus 100 unit/mL sliding (3 mL) scale. Max injection daily dose 75 units insulin Yes [id number] 64U inject 64 U nivers degludec 4-26 Units ity of (TRESIBA 00:00: [place] FLEXT[place]CH 00 skin Medical U-200) 200 daily. Branch unit/mL (3 mL) InPn insulin Yes [id number] Inject Univ ers aspart 4-26 10-25 ity of U-100 00:00: units 3 [place] (NOVOLOG 00 times Medical FLEXPEN daily with Branch U-100 meals, INSULIN) plus 100 unit/mL sliding (3 mL) scale. Max injection daily dose 75 units insulin Yes [id number] 64U inject 64 U nivers degludec 4-26 Units ity of (TRESIBA 00:00: [place] FLEXT[place]CH 00 skin Medical U-200) 200 daily. Branch unit/mL (3 mL) InPn insulin Yes [id number] Inject Univ ers aspart 4-26 10-25 ity of U-100 00:00: units 3 [place] (NOVOLOG 00 times Medical FLEXPEN daily with Branch U-100 meals, INSULIN) plus 100 unit/mL sliding (3 mL) scale. Max injection daily dose 75 units insulin Yes [id number] 64U inject 64 U nivers degludec 4-26 Units ity of (TRESIBA 00:00: [place] FLEXT[place]CH 00 skin Medical U-200) 200 daily. Branch unit/mL (3 mL) InPn insulin 2021- No [id number] Inject Uni vers aspart - 12-13 10-25 ity of U-100 00:00: 00:00 units 3 [place] (NOVOLOG 00 :00 times Medical FLEXPEN daily with Branch U-100 meals, INSULIN) plus 100 unit/mL sliding (3 mL) scale. Max injection daily dose 75 units insulin 2021- No [id number] 64U inject 64 [facility] degludec -26 12-13 Units ity of (TRESIBA 00:00: 00:00 under the [place] FLEXTOUCH 00 :00 skin Medical U-200) 200 daily. Branch unit/mL (3 mL) InPn insulin 2021- No [id number] Inject Uni vers aspart 4-26 12-13 10-25 ity of U-100 00:00: 00:00 units 3 [place] (NOVOLOG 00 :00 times Medical FLEXPEN daily with Branch U-100 meals, INSULIN) plus 100 unit/mL sliding (3 mL) scale. Max injection daily dose 75 units insulin 2021- No [id number] 64U inject 64 Univers degludec 26 12-13 Units ity of (TRESIBA 00:00: 00:00 under the [place] FLEXTOUCH 00 :00 skin Medical U-200) 200 daily. Branch unit/mL (3 mL) InPn simvastatin 2021- No [id number] 20mg Take 1 [facility] 20 mg 11-27 tablet by ity of tablet 00:00: 00:00 mouth at [place] 00 :00 bedtime. [facility] ODT 0 Yes Univers 75 mg TbDL 4-20 ity of 00:00: [place] [facility] ODT 2021-0 Yes Univers 75 mg TbDL 4-20 ity of 00:00: [place] [facility] ODT 2021-0 Yes Univers 75 mg TbDL 4-20 ity of 00:00: [place] [facility] ODT 2021-0 Yes Univers 75 mg TbDL 4-20 ity of 00:00: [place] [facility] ODT 2021-0 Yes Univers 75 mg TbDL 4-20 ity of 00:00: [place] [facility] ODT 2021-0 Yes Univers 75 mg TbDL 4-20 ity of 00:00: [place] [facility] ODT 2021-0 Yes Univers 75 mg TbDL 4-20 ity of 00:00: [place] [facility] ODT 2021-0 Yes Univers 75 mg TbDL 4-20 ity of 00:00: [place] [facility] ODT 2021-0 Yes Univers 75 mg TbDL 4-20 ity of 00:00: [place] [facility] ODT 2021-0 Yes Univers 75 mg TbDL 4-20 ity of 00:00: [place] [facility] ODT 2021-0 Yes [facility] 75 mg TbDL 4-20 ity of 00:00: [place] [facility] ODT 2021-0 Yes [facility] 75 mg TbDL 4-20 ity of 00:00: [place] [facility] ODT 2021-0 Yes [facility] 75 mg TbDL 4-20 ity of 00:00: [place] [facility] ODT 2021-0 Yes [facility] 75 mg TbDL 4-20 ity of 00:00: [place] [facility] ODT 2-0 Yes [facility] 75 mg TbDL 4-20 ity of 00:00: [place] [facility] ODT 2-0 Yes [facility] 75 mg TbDL 4-20 ity of 00:00: [place] [facility] ODT 2021-0 Yes Univers 75 mg TbDL 4-20 ity of 00:00: [address] ODT 2-0 Yes Univers 75 mg TbDL 4-20 ity of 00:00: [address] ODT 2021-0 Yes Univers 75 mg TbDL 4-20 ity of 00:00: [address] ODT 2021-0 Yes Univers 75 mg TbDL 4-20 ity of 00:00: [address] ODT 2021-0 Yes Univers 75 mg TbDL 4-20 ity of 00:00: [address] ODT 2021-0 Yes Univers 75 mg TbDL 4-20 ity of 00:00: [address] ODT 2-0 Yes Univers 75 mg TbDL 4-20 ity of 00:00: [address] ODT 2021-0 Yes Univers 75 mg TbDL 4-20 ity of 00:00: [address] ODT 2-0 Yes Univers 75 mg TbDL 4-20 ity of 00:00: [address] ODT 2-0 Yes Univers 75 mg TbDL 4-20 ity of 00:00: [address] ODT 2-0 Yes Univers 75 mg TbDL 4-20 ity of 00:00: [address] ODT 2-0 Yes Univers 75 mg TbDL 4-20 ity of 00:00: [address] ODT 2-0 Yes Univers 75 mg TbDL 4-20 ity of 00:00: [address] ODT 2021-0 Yes Univers 75 mg TbDL 4-20 ity of 00:00: [address] ODT 2-0 Yes Univers 75 mg TbDL 4-20 ity of 00:00: [place] [facility] ODT 2021-0 Yes Univers 75 mg TbDL 4-20 ity of 00:00: [place] [facility] ODT 2021-0 Yes Univers 75 mg TbDL 4-20 ity of 00:00: [place] [facility] ODT 2021-0 Yes Univers 75 mg TbDL 4-20 ity of 00:00: [place] [facility] ODT 2021-0 Yes Univers 75 mg TbDL 4-20 ity of 00:00: [place] [facility] ODT 2021-0 Yes Univers 75 mg TbDL 4-20 ity of 00:00: [address] ODT 2021-0 Yes Univers 75 mg TbDL 4-20 ity of 00:00: [address] ODT 2021-0 Yes Univers 75 mg TbDL 4-20 ity of 00:00: [address] ODT 2021-0 Yes Univers 75 mg TbDL 4-20 ity of 00:00: [place] [facility] ODT 2-0 Yes Univers 75 mg TbDL 4-20 ity of 00:00: [address] ODT 2021-0 Yes Univers 75 mg TbDL 4-20 ity of 00:00: [place] [facility] ODT 2-0 Yes Univers 75 mg TbDL 4-20 ity of 00:00: [place] [facility] ODT 2-0 Yes Univers 75 mg TbDL 4-20 ity of 00:00: [place] [facility] ODT 2-0 Yes Univers 75 mg TbDL 4-20 ity of 00:00: [place] [facility] ODT 2-0 Yes [facility] 75 mg TbDL 4-20 ity of 00:00: [place] [facility] ODT 2-0 Yes [facility] 75 mg TbDL 4-20 ity of 00:00: [place] [facility] ODT 2-0 Yes Univers 75 mg TbDL 4-20 ity of 00:00: [place] [facility] ODT 2-0 Yes Univers 75 mg TbDL 4-20 ity of 00:00: [facility] ODT 0 Yes Univers 75 mg TbDL 4-20 ity of 00:00: [place] [facility] ODT 2021-0 Yes Univers 75 mg TbDL 4-20 ity of 00:: [place] [facility] ODT 0 Yes Univers 75 mg TbDL 4-20 ity of 00:: [place] [facility] ODT 2021-0 Yes Univers 75 mg TbDL 4-20 ity of 00:: [place] [facility] ODT 0 Yes Univers 75 mg TbDL 4-20 ity of 00:: [place] [facility] ODT 2021-0 Yes Univers 75 mg TbDL 4-20 ity of 00:: [place] [facility] ODT 0 Yes Univers 75 mg TbDL 4-20 ity of 00:: [place] [facility] ODT 2021-0 Yes Univers 75 mg TbDL 4-20 ity of 00:: [place] [facility] ODT 0 Yes Univers 75 mg TbDL 4-20 ity of 00:: [place] [facility] ODT 2021-0 Yes Univers 75 mg TbDL 4-20 ity of 00:: [place] [facility] ODT 2021-0 Yes Univers 75 mg TbDL 4-20 ity of 00:: [place] [facility] ODT 2021-0 Yes Univers 75 mg TbDL 4-20 ity of 00:00: [place] [facility] ODT 2021-0 Yes Univers 75 mg TbDL 4-20 ity of 00:: [place] [facility] ODT 0 Yes Univers 75 mg TbDL 4-20 ity of 00:: [place] [facility] ODT 0 Yes Univers 75 mg TbDL 4-20 ity of 00:: [place] [facility] Insulin Yes [id number] USE FOUR Un gray [place], 3-23 TIMES A ity of Disposable, 00:00: DAY FOR [place] as (BD INSULIN 00 INSULIN Medic al PEN NEEDLE INJECTIONS [facility] UF) 29 gauge x 1/2" Ndle Insulin Yes [id number] USE FOUR Un gray [place], 3-23 TIMES A ity of Disposable, 00:00: DAY FOR [place] (BD INSULIN 00 INSULIN Medic al PEN NEEDLE INJECTIONS [facility] UF) 29 gauge x 1/2" Ndle Insulin Yes [id number] USE FOUR Un gray [place], 3-23 TIMES A ity of Disposable, 00:00: DAY FOR [place] (BD INSULIN 00 INSULIN Medic al PEN NEEDLE INJECTIONS [facility] UF) 29 gauge x 1/2" Ndle Insulin Yes [id number] USE FOUR Un gray [place], 3-23 TIMES A ity of Disposable, 00:00: DAY FOR [place] (BD INSULIN 00 INSULIN Medic al PEN NEEDLE INJECTIONS [facility] UF) 29 gauge x 1/2" Ndle Insulin Yes [id number] USE FOUR Un gray [place], 3-23 TIMES A ity of Disposable, 00:00: DAY FOR [place] (BD INSULIN 00 INSULIN Medic al PEN NEEDLE INJECTIONS [facility] UF) 29 gauge x 1/2" Ndle Insulin Yes [id number] USE FOUR Un gray [place], 3-23 TIMES A ity of Disposable, 00:00: DAY FOR [place] (BD INSULIN 00 INSULIN Medic al PEN NEEDLE INJECTIONS [facility] UF) 29 gauge x 1/2" Ndle Insulin Yes [id number] USE FOUR Un gray [place], 3-23 TIMES A ity of Disposable, 00:00: DAY FOR [place] (BD INSULIN 00 INSULIN Medic al PEN NEEDLE INJECTIONS [facility] UF) 29 gauge x 1/2" Ndle Insulin Yes [id number] USE FOUR Un gray [place], 3-23 TIMES A ity of Disposable, 00:00: DAY FOR [place] (BD INSULIN 00 INSULIN Medic al PEN NEEDLE INJECTIONS [facility] UF) 29 gauge x 1/2" Ndle Insulin Yes [id number] USE FOUR Un gray [place], 3-23 TIMES A ity of Disposable, 00:00: DAY FOR [place] (BD INSULIN 00 INSULIN Medic al PEN NEEDLE INJECTIONS [facility] UF) 29 gauge x 1/2" Ndle Insulin Yes [id number] USE FOUR Un gray [place], 3-23 TIMES A ity of Disposable, 00:00: DAY FOR [place] (BD INSULIN 00 INSULIN Medic al PEN NEEDLE INJECTIONS [facility] UF) 29 gauge x 1/2" Ndle Insulin Yes [id number] USE FOUR Un gray [place], 3-23 TIMES A ity of Disposable, 00:00: DAY FOR [place] (BD INSULIN 00 INSULIN Medic al PEN NEEDLE INJECTIONS [facility] UF) 29 gauge x 1/2" Ndle Insulin Yes [id number] USE FOUR Un gray [place], 3-23 TIMES A ity of Disposable, 00:00: DAY FOR [place] (BD INSULIN 00 INSULIN Medic al PEN NEEDLE INJECTIONS [facility]) 29 gauge x 1/2" Ndle Insulin Yes [id number] USE FOUR Un gray [place], 3-23 TIMES A ity of Disposable, 00:00: DAY FOR [place] (BD INSULIN 00 INSULIN Medic al PEN NEEDLE INJECTIONS [facility]) 29 gauge x 1/2" Ndle Insulin Yes [id number] USE FOUR Un gray [place], 3-23 TIMES A ity of Disposable, 00:00: DAY FOR [place] (BD INSULIN 00 INSULIN Medic al PEN NEEDLE INJECTIONS [facility]) 29 gauge x 1/2" Ndle Insulin Yes [id number] USE FOUR Un gray [place], 3-23 TIMES A ity of Disposable, 00:00: DAY FOR [place] (BD INSULIN 00 INSULIN Medic al PEN NEEDLE INJECTIONS [facility]) 29 gauge x 1/2" Ndle Insulin Yes [id number] USE FOUR Un gray [place], 3-23 TIMES A ity of Disposable, 00:00: DAY FOR [place] (BD INSULIN 00 INSULIN Medic al PEN NEEDLE INJECTIONS [facility]) 29 gauge x 1/2" Ndle Insulin Yes [id number] USE FOUR Un gray [place], 3-23 TIMES A ity of Disposable, 00:00: DAY FOR [place] (BD INSULIN 00 INSULIN Medic al PEN NEEDLE INJECTIONS [facility] UF) 29 gauge x 1/2" Ndle Insulin Yes [id number] USE FOUR Un gray [place], 3-23 TIMES A ity of Disposable, 00:00: DAY FOR [place] (BD INSULIN 00 INSULIN Medic al PEN NEEDLE INJECTIONS [facility]) 29 gauge x 1/2" Ndle Insulin Yes [id number] USE FOUR Un gray [place], 3-23 TIMES A ity of Disposable, 00:00: DAY FOR [place] (BD INSULIN 00 INSULIN Medic al PEN NEEDLE INJECTIONS [facility] UF) 29 gauge x 1/2" Ndle Insulin 2021-0 Yes [id number] USE FOUR Un gray [place], 3-23 TIMES A ity of Disposable, 00:00: DAY FOR [place] (BD INSULIN 00 INSULIN Medic al PEN NEEDLE INJECTIONS [facility] UF) 29 gauge x 1/2" Ndle Insulin 2021-0 Yes [id number] USE FOUR Un gray [place], 3-23 TIMES A ity of Disposable, 00:00: DAY FOR [place] (BD INSULIN 00 INSULIN Medic al PEN NEEDLE INJECTIONS [facility] UF) 29 gauge x 1/2" Ndle Insulin 0 Yes [id number] USE FOUR Un gray [place], 3-23 TIMES A ity of Disposable, 00:00: DAY FOR [place] (BD INSULIN 00 INSULIN Medic al PEN NEEDLE INJECTIONS [facility] UF) 29 gauge x 1/2" Ndle Insulin 0 Yes [id number] USE FOUR Un gray [place], 3-23 TIMES A ity of Disposable, 00:00: DAY FOR [place] (BD INSULIN 00 INSULIN Medic al PEN NEEDLE INJECTIONS [facility] UF) 29 gauge x 1/2" Ndle Insulin 0 Yes [id number] USE FOUR Un gray [place], 3-23 TIMES A ity of Disposable, 00:00: DAY FOR [place] (BD INSULIN 00 INSULIN Medic al PEN NEEDLE INJECTIONS [facility] UF) 29 gauge x 1/2" Ndle Insulin 2021-0 Yes [id number] USE FOUR Un gray [place], 3-23 TIMES A ity of Disposable, 00:00: DAY FOR [place] (BD INSULIN 00 INSULIN Medic al PEN NEEDLE INJECTIONS [facility] UF) 29 gauge x 1/2" Ndle Insulin 2021-0 Yes [id number] USE FOUR Un gray [place], 3-23 TIMES A ity of Disposable, 00:00: DAY FOR [place] (BD INSULIN 00 INSULIN Medic al PEN NEEDLE INJECTIONS [facility] UF) 29 gauge x 1/2" Ndle Insulin 2021-0 Yes [id number] USE FOUR Un gray [place], 3-23 TIMES A ity of Disposable, 00:00: DAY FOR [place] (BD INSULIN 00 INSULIN Medic al PEN NEEDLE INJECTIONS [facility] UF) 29 gauge x 1/2" Ndle Insulin Yes [id number] USE FOUR Un gray [place], 3-23 TIMES A ity of Disposable, 00:00: DAY FOR [place] (BD INSULIN 00 INSULIN Medic al PEN NEEDLE INJECTIONS [facility] UF) 29 gauge x 1/2" Ndle Insulin Yes [id number] USE FOUR Un gray [place], 3-23 TIMES A ity of Disposable, 00:00: DAY FOR [place] (BD INSULIN 00 INSULIN Medic al PEN NEEDLE INJECTIONS [facility] UF) 29 gauge x 1/2" Ndle Insulin Yes [id number] USE FOUR Un gray [place], 3-23 TIMES A ity of Disposable, 00:00: DAY FOR [place] (BD INSULIN 00 INSULIN Medic al PEN NEEDLE INJECTIONS [facility] UF) 29 gauge x 1/2" Ndle Insulin Yes [id number] USE FOUR Un gray [place], 3-23 TIMES A ity of Disposable, 00:00: DAY FOR [place] (BD INSULIN 00 INSULIN Medic al PEN NEEDLE INJECTIONS [facility] UF) 29 gauge x 1/2" Ndle Insulin Yes [id number] USE FOUR Un gray [place], 3-23 TIMES A ity of Disposable, 00:00: DAY FOR [place] (BD INSULIN 00 INSULIN Medic al PEN NEEDLE INJECTIONS [facility] UF) 29 gauge x 1/2" Ndle Insulin Yes [id number] USE FOUR Un gray [place], 3-23 TIMES A ity of Disposable, 00:00: DAY FOR [place] (BD INSULIN 00 INSULIN Medic al PEN NEEDLE INJECTIONS [facility] UF) 29 gauge x 1/2" Ndle Insulin Yes [id number] USE FOUR Un gray [place], 3-23 TIMES A ity of Disposable, 00:00: DAY FOR [place] (BD INSULIN 00 INSULIN Medic al PEN NEEDLE INJECTIONS [facility] UF) 29 gauge x 1/2" Ndle Insulin Yes [id number] USE FOUR Un gray [place], 3-23 TIMES A ity of Disposable, 00:00: DAY FOR [place] (BD INSULIN 00 INSULIN Medic al PEN NEEDLE INJECTIONS [facility] UF) 29 gauge x 1/2" Ndle Insulin Yes [id number] USE FOUR Un gray [place], 3-23 TIMES A ity of Disposable, 00:00: DAY FOR [place] (BD INSULIN 00 INSULIN Medic al PEN NEEDLE INJECTIONS [facility] UF) 29 gauge x 1/2" Ndle Insulin 2021-0 Yes [id number] USE FOUR Un gray [place], 3-23 TIMES A ity of Disposable, 00:00: DAY FOR [place] (BD INSULIN 00 INSULIN Medic al PEN NEEDLE INJECTIONS [facility] UF) 29 gauge x 1/2" Ndle Insulin 2021-0 Yes [id number] USE FOUR Un gray [place], 3-23 TIMES A ity of Disposable, 00:00: DAY FOR [place] (BD INSULIN 00 INSULIN Medic al PEN NEEDLE INJECTIONS [facility] UF) 29 gauge x 1/2" Ndle Insulin 2021-0 Yes [id number] USE FOUR Un gray [place], 3-23 TIMES A ity of Disposable, 00:00: DAY FOR [place] (BD INSULIN 00 INSULIN Medic al PEN NEEDLE INJECTIONS [facility] UF) 29 gauge x 1/2" Ndle Insulin 2021-0 Yes [id number] USE FOUR Un gray [place], 3-23 TIMES A ity of Disposable, 00:00: DAY FOR [place] (BD INSULIN 00 INSULIN Medic al PEN NEEDLE INJECTIONS [facility] UF) 29 gauge x 1/2" Ndle Insulin 2021-0 Yes [id number] USE FOUR Un gray [place], 3-23 TIMES A ity of Disposable, 00:00: DAY FOR [place] (BD INSULIN 00 INSULIN Medic al PEN NEEDLE INJECTIONS [facility] UF) 29 gauge x 1/2" Ndle Insulin 2021-0 Yes [id number] USE FOUR Un gray [place], 3-23 TIMES A ity of Disposable, 00:00: DAY FOR [place] (BD INSULIN 00 INSULIN Medic al PEN NEEDLE INJECTIONS [facility] UF) 29 gauge x 1/2" Ndle Insulin 2021-0 Yes [id number] USE FOUR Un gray [place], 3-23 TIMES A ity of Disposable, 00:00: DAY FOR [place] (BD INSULIN 00 INSULIN Medic al PEN NEEDLE INJECTIONS [facility] UF) 29 gauge x 1/2" Ndle Insulin 2021-0 Yes [id number] USE FOUR Un gray [place], 3-23 TIMES A ity of Disposable, 00:00: DAY FOR [place] (BD INSULIN 00 INSULIN Medic al PEN NEEDLE INJECTIONS [facility] UF) 29 gauge x 1/2" Ndle Insulin 2021-0 Yes [id number] USE FOUR Un gray [place], 3-23 TIMES A ity of Disposable, 00:00: DAY FOR [place] (BD INSULIN 00 INSULIN Medic al PEN NEEDLE INJECTIONS [facility] UF) 29 gauge x 1/2" Ndle Insulin Yes [id number] USE FOUR Un gray [place], 3-23 TIMES A ity of Disposable, 00:00: DAY FOR [place] (BD INSULIN 00 INSULIN Medic al PEN NEEDLE INJECTIONS [facility] UF) 29 gauge x 1/2" Ndle Insulin Yes [id number] USE FOUR Un gray [place], 3-23 TIMES A ity of Disposable, 00:00: DAY FOR [place] (BD INSULIN 00 INSULIN Medic al PEN NEEDLE INJECTIONS [facility] UF) 29 gauge x 1/2" Ndle Insulin Yes [id number] USE FOUR Un gray [place], 3-23 TIMES A ity of Disposable, 00:00: DAY FOR [place] (BD INSULIN 00 INSULIN Medic al PEN NEEDLE INJECTIONS [facility] UF) 29 gauge x 1/2" Ndle Insulin Yes [id number] USE FOUR Un gray [place], 3-23 TIMES A ity of Disposable, 00:00: DAY FOR [place] (BD INSULIN 00 INSULIN Medic al PEN NEEDLE INJECTIONS [facility] UF) 29 gauge x 1/2" Ndle Insulin Yes [id number] USE FOUR Un gray [place], 3-23 TIMES A ity of Disposable, 00:00: DAY FOR [place] (BD INSULIN 00 INSULIN Medic al PEN NEEDLE INJECTIONS [facility] UF) 29 gauge x 1/2" Ndle Insulin Yes [id number] USE FOUR Un gray [place], 3-23 TIMES A ity of Disposable, 00:00: DAY FOR [place] (BD INSULIN 00 INSULIN Medic al PEN NEEDLE INJECTIONS [facility] UF) 29 gauge x 1/2" Ndle Insulin 0 Yes [id number] USE FOUR Un gray [place], 3-23 TIMES A ity of Disposable, 00:00: DAY FOR [place] (BD INSULIN 00 INSULIN Medic al PEN NEEDLE INJECTIONS [facility] UF) 29 gauge x 1/2" Ndle Insulin 0 Yes [id number] USE FOUR Un gray [place], 3-23 TIMES A ity of Disposable, 00:00: DAY FOR [place] (BD INSULIN 00 INSULIN Medic al PEN NEEDLE INJECTIONS [facility] UF) 29 gauge x 1/2" Ndle Insulin 0 Yes [id number] USE FOUR Un gray [place], 3-23 TIMES A ity of Disposable, 00:00: DAY FOR [place] (BD INSULIN 00 INSULIN Medic al PEN NEEDLE INJECTIONS [facility] UF) 29 gauge x 1/2" Ndle Insulin Yes [id number] USE FOUR Un gray [place], 3-23 TIMES A ity of Disposable, 00:00: DAY FOR [place] (BD INSULIN 00 INSULIN Medic al PEN NEEDLE INJECTIONS [facility]) 29 gauge x 1/2" Ndle Insulin Yes [id number] USE FOUR Un gray [place], 3-23 TIMES A ity of Disposable, 00:00: DAY FOR [place] (BD INSULIN 00 INSULIN Medic al PEN NEEDLE INJECTIONS [facility]) 29 gauge x 1/2" Ndle Insulin Yes [id number] USE FOUR Un gray [place], 3-23 TIMES A ity of Disposable, 00:00: DAY FOR [place] (BD INSULIN 00 INSULIN Medic al PEN NEEDLE INJECTIONS [facility]) 29 gauge x 1/2" Ndle Insulin Yes [id number] USE FOUR Un gray [place], 3-23 TIMES A ity of Disposable, 00:00: DAY FOR [place] (BD INSULIN 00 INSULIN Medic al PEN NEEDLE INJECTIONS [facility]) 29 gauge x 1/2" Ndle Insulin Yes [id number] USE FOUR Un gray [place], 3-23 TIMES A ity of Disposable, 00:00: DAY FOR [place] (BD INSULIN 00 INSULIN Medic al PEN NEEDLE INJECTIONS [facility]) 29 gauge x 1/2" Ndle Insulin Yes [id number] USE FOUR Un gray [place], 3-23 TIMES A ity of Disposable, 00:00: DAY FOR [place] (BD INSULIN 00 INSULIN Medic al PEN NEEDLE INJECTIONS [facility]) 29 gauge x 1/2" Ndle Insulin Yes [id number] USE FOUR Un gray [place], 3-23 TIMES A ity of Disposable, 00:00: DAY FOR [place] (BD INSULIN 00 INSULIN Medic al PEN NEEDLE INJECTIONS [facility]) 29 gauge x 1/2" Ndle Insulin 2021-0 Yes [id number] USE FOUR Un gray [place], 3-23 TIMES A ity of Disposable, 00:00: DAY FOR [place] (BD INSULIN 00 INSULIN Medic al PEN NEEDLE INJECTIONS [facility] UF) 29 gauge x 1/2" Ndle Insulin 0 Yes [id number] USE FOUR Un gray [place], 3-23 TIMES A ity of Disposable, 00:00: DAY FOR [place] (BD INSULIN 00 INSULIN Medic al PEN NEEDLE INJECTIONS [facility] UF) 29 gauge x 1/2" Ndle levalbutero Yes [id number] 1{puff} Inhale 1-2 Univers l (XOPENEX 2-16 Puffs ity of HFA) 45 00:00: every 4 [place] mcg/actuati 00 (four) Medica l on inhaler hours as Branc h needed for Wheezing, Shortness of Breath, Bronchospa sm or Chest tightness. levalbutero Yes [id number] 1{puff} Inhale 1-2 Univers l (XOPENEX 2-16 Puffs ity of HFA) 45 00:00: every 4 [place] mcg/actuati 00 (four) Medica l on inhaler hours as Branc h needed for Wheezing, Shortness of Breath, Bronchospa sm or Chest tightness. levalbutero Yes [id number] 1{puff} Inhale 1-2 Univers l (XOPENEX 2-16 Puffs ity of HFA) 45 00:00: every 4 [place] mcg/actuati 00 (four) Medica l on inhaler hours as Branc h needed for Wheezing, Shortness of Breath, Bronchospa sm or Chest tightness. levalbutero Yes [id number] 1{puff} Inhale 1-2 Univers l (XOPENEX 2-16 Puffs ity of HFA) 45 00:00: every 4 [place] mcg/actuati 00 (four) Medica l on inhaler hours as Branc h needed for Wheezing, Shortness of Breath, Bronchospa sm or Chest tightness. levalbutero Yes [id number] 1{puff} Inhale 1-2 Univers l (XOPENEX 2-16 Puffs ity of HFA) 45 00:00: every 4 [place] mcg/actuati 00 (four) Medica l on inhaler hours as Branc h needed for Wheezing, Shortness of Breath, Bronchospa sm or Chest tightness. levalbutero Yes [id number] 1{puff} Inhale 1-2 Univers l (XOPENEX 2-16 Puffs ity of HFA) 45 00:00: every 4 [place] mcg/actuati 00 (four) Medica l on inhaler hours as Branc h needed for Wheezing, Shortness of Breath, Bronchospa sm or Chest tightness. levalbutero Yes [id number] 1{puff} Inhale 1-2 Univers l (XOPENEX 2-16 Puffs ity of HFA) 45 00:00: every 4 [place] mcg/actuati 00 (four) Medica l on inhaler hours as Branc h needed for Wheezing, Shortness of Breath, Bronchospa sm or Chest tightness. levalbutero Yes [id number] 1{puff} Inhale 1-2 Univers l (XOPENEX 2-16 Puffs ity of HFA) 45 00:00: every 4 [place] mcg/actuati 00 (four) Medica l on inhaler hours as Branc h needed for Wheezing, Shortness of Breath, Bronchospa sm or Chest tightness. levalbutero Yes [id number] 1{puff} Inhale 1-2 Univers l (XOPENEX 2-16 Puffs ity of HFA) 45 00:00: every 4 [place] mcg/actuati 00 (four) Medica l on inhaler hours as Branc h needed for Wheezing, Shortness of Breath, Bronchospa sm or Chest tightness. levalbutero Yes [id number] 1{puff} Inhale 1-2 Univers l (XOPENEX 2-16 Puffs ity of HFA) 45 00:00: every 4 [place] mcg/actuati 00 (four) Medica l on inhaler hours as Branc h needed for Wheezing, Shortness of Breath, Bronchospa sm or Chest tightness. levalbutero 0 Yes [id number] 1{puff} Inhale 1-2 Univers l (XOPENEX 2-16 Puffs ity of HFA) 45 00:00: every 4 [place] mcg/actuati 00 (four) Medica l on inhaler hours as Branc h needed for Wheezing, Shortness of Breath, Bronchospa sm or Chest tightness. levalbutero Yes [id number] 1{puff} Inhale 1-2 Univers l (XOPENEX 2-16 Puffs ity of HFA) 45 00:00: every 4 [place] mcg/actuati 00 (four) Medica l on inhaler hours as Branc h needed for Wheezing, Shortness of Breath, Bronchospa sm or Chest tightness. levalbutero Yes [id number] 1{puff} Inhale 1-2 Univers l (XOPENEX 2-16 Puffs ity of HFA) 45 00:00: every 4 [place] mcg/actuati 00 (four) Medica l on inhaler hours as Branc h needed for Wheezing, Shortness of Breath, Bronchospa sm or Chest tightness. levalbutero Yes [id number] 1{puff} Inhale 1-2 Univers l (XOPENEX 2-16 Puffs ity of HFA) 45 00:00: every 4 [place] mcg/actuati 00 (four) Medica l on inhaler hours as Branc h needed for Wheezing, Shortness of Breath, Bronchospa sm or Chest tightness. levalbutero Yes [id number] 1{puff} Inhale 1-2 Univers l (XOPENEX 2-16 Puffs ity of HFA) 45 00:00: every 4 [place] mcg/actuati 00 (four) Medica l on inhaler hours as Branc h needed for Wheezing, Shortness of Breath, Bronchospa sm or Chest tightness. levalbutero Yes [id number] 1{puff} Inhale 1-2 Univers l (XOPENEX 2-16 Puffs ity of HFA) 45 00:00: every 4 [place] mcg/actuati 00 (four) Medica l on inhaler hours as Branc h needed for Wheezing, Shortness of Breath, Bronchospa sm or Chest tightness. levalbutero Yes [id number] 1{puff} Inhale 1-2 Univers l (XOPENEX 2-16 Puffs ity of HFA) 45 00:00: every 4 [place] mcg/actuati 00 (four) Medica l on inhaler hours as Branc h needed for Wheezing, Shortness of Breath, Bronchospa sm or Chest tightness. levalbutero Yes [id number] 1{puff} Inhale 1-2 Univers l (XOPENEX 2-16 Puffs ity of HFA) 45 00:00: every 4 [place] mcg/actuati 00 (four) Medica l on inhaler hours as Branc h needed for Wheezing, Shortness of Breath, Bronchospa sm or Chest tightness. levalbutero Yes [id number] 1{puff} Inhale 1-2 Univers l (XOPENEX 2-16 Puffs ity of HFA) 45 00:00: every 4 [place] mcg/actuati 00 (four) Medica l on inhaler hours as Branc h needed for Wheezing, Shortness of Breath, Bronchospa sm or Chest tightness. levalbutero Yes [id number] 1{puff} Inhale 1-2 Univers l (XOPENEX 2-16 Puffs ity of HFA) 45 00:00: every 4 [place] mcg/actuati 00 (four) Medica l on inhaler hours as Branc h needed for Wheezing, Shortness of Breath, Bronchospa sm or Chest tightness. levalbutero Yes [id number] 1{puff} Inhale 1-2 Univers l (XOPENEX 2-16 Puffs ity of HFA) 45 00:00: every 4 [place] mcg/actuati 00 (four) Medica l on inhaler hours as Branc h needed for Wheezing, Shortness of Breath, Bronchospa sm or Chest tightness. levalbutero 0 Yes [id number] 1{puff} Inhale 1-2 Univers l (XOPENEX 2-16 Puffs ity of HFA) 45 00:00: every 4 [place] mcg/actuati 00 (four) Medica l on inhaler hours as Branc h needed for Wheezing, Shortness of Breath, Bronchospa sm or Chest tightness. levalbutero 0 Yes [id number] 1{puff} Inhale 1-2 Univers l (XOPENEX 2-16 Puffs ity of HFA) 45 00:00: every 4 [place] mcg/actuati 00 (four) Medica l on inhaler hours as Branc h needed for Wheezing, Shortness of Breath, Bronchospa sm or Chest tightness. levalbutero 0 Yes [id number] 1{puff} Inhale 1-2 [facility] (XOPENEX 2-16 Puffs ity of HFA) 45 00:00: every 4 [place] mcg/actuati 00 (four) Medica l on inhaler hours as Branc h needed for Wheezing, Shortness of Breath, Bronchospa sm or Chest tightness. levalbutero 0 Yes [id number] 1{puff} Inhale 1-2 [facility] (XOPENEX 2-16 Puffs ity of HFA) 45 00:00: every 4 [place] mcg/actuati 00 (four) Medica l on inhaler hours as Branc h needed for Wheezing, Shortness of Breath, Bronchospa sm or Chest tightness. levalbutero Yes [id number] 1{puff} Inhale 1-2 [facility] (XOPENEX 2-16 Puffs ity of HFA) 45 00:00: every 4 [place] mcg/actuati 00 (four) Medica l on inhaler hours as Branc h needed for Wheezing, Shortness of Breath, Bronchospa sm or Chest tightness. levalbutero Yes [id number] 1{puff} Inhale 1-2 [facility] (XOPENEX 2-16 Puffs ity of HFA) 45 00:00: every 4 [place] mcg/actuati 00 (four) Medica l on inhaler hours as Branc h needed for Wheezing, Shortness of Breath, Bronchospa sm or Chest tightness. levalbutero 0 Yes [id number] 1{puff} Inhale 1-2 [facility] (XOPENEX 2-16 Puffs ity of HFA) 45 00:00: every 4 [place] mcg/actuati 00 (four) Medica l on inhaler hours as Branc h needed for Wheezing, Shortness of Breath, Bronchospa sm or Chest tightness. levalbutero 2021-0 Yes [id number] 1{puff} Inhale 1-2 [facility] (XOPENEX 2-16 Puffs ity of HFA) 45 00:00: every 4 [place] mcg/actuati 00 (four) Medica l on inhaler hours as Branc h needed for Wheezing, Shortness of Breath, Bronchospa sm or Chest tightness. levalbutero Yes [id number] 1{puff} Inhale 1-2 [facility] (XOPENEX 2-16 Puffs ity of HFA) 45 00:00: every 4 [place] mcg/actuati 00 (four) Medica l on inhaler hours as Branc h needed for Wheezing, Shortness of Breath, Bronchospa sm or Chest tightness. levalbutero 2022- No [id number] 1{puff} Inhale 1-2 [facility] (XOPENEX 2-16 01-13 Puffs ity of HFA) 45 00:00: 00:00 every 4 [place] mcg/actuati 00 :00 (four) Medica l on inhaler hours as Branc h needed for Wheezing, Shortness of Breath, Bronchospa sm or Chest tightness. amitriptyli 2021- No [id number] 75mg Take 1 [facility] ne 75 mg 2-16 07-29 tablet by ity o f tablet 00:00: 00:00 mouth at [place] 00 :00 bedtime. Medical Branch lisinopriL- 2021- No [id number] 1{tbl} Take 1 [facility] hydrochloro 1-19 07-22 tablet by it y of thiazide 00:00: 00:00 mouth [place] 10-12.5 mg 00 :00 daily. Medical per tablet Branch [facility] 2020-08 Yes 1{each} inject 1 U nivers 32 gauge x 2-27 Each under ity of 1/5" Ndle 00:00: the skin 4 [place] 00 (four) Medical times Branch daily. [facility]ARDI[facility] 2020-08 Yes [id number] 25mg Take 25 mg [facility] 25 mg Tab 2-27 by mouth ity of 00:00: daily. [place] 00 Medical Branch [facility] 2020-08 Yes 1{each} inject 1 U nivers 32 gauge x 2-27 Each under ity of 1/5" Ndle 00:00: the skin 4 [place] 00 (four) Medical times Branch daily. JARDIANCE 2020-08 Yes [id number] 25mg Take 25 mg [facility] 25 mg Tab 2-27 by mouth ity of 00:00: daily. [address] [facility] Yes 1{each} inject 1 U nivers 32 gauge x 2-27 Each under ity of 1/5" Ndle 00:00: the skin 4 [place] 00 (four) Medical times Branch daily. JARDIANCE 2020-08 Yes [id number] 25mg Take 25 mg [facility] 25 mg Tab 2-27 by mouth ity of 00:00: daily. [address] [facility] 2020-08 Yes 1{each} inject 1 U nivers 32 gauge x 2-27 Each under ity of 1/5" Ndle 00:00: the skin 4 [place] 00 (four) Medical times Branch daily. JARDIANCE 2020-08 Yes [id number] 25mg Take 25 mg [facility] 25 mg Tab 2-27 by mouth ity of 00:00: daily. [address] 2020-08 Yes 1{each} inject 1 U nivers 32 gauge x 2-27 Each under ity of 1/5" Ndle 00:00: the skin 4 [place] 00 (four) Medical times Branch daily. JARDIANCE 2020-08 Yes [id number] 25mg Take 25 mg [facility] 25 mg Tab 2-27 by mouth ity of 00:00: daily. [address] [facility] 2020-08 Yes 1{each} inject 1 U nivers 32 gauge x 2-27 Each under ity of 1/5" Ndle 00:00: the skin 4 [place] 00 (four) Medical times Branch daily. JARDIANCE 2020-08 Yes [id number] 25mg Take 25 mg [facility] 25 mg Tab 2-27 [facility] [address] [facility] Yes 1{each} inject 1 U nivers 32 gauge x 2-27 Each under ity of 1/5" Ndle 00:00: the skin 4 [place] 00 (four) Medical times Branch daily. [facility]ARDIANCE 2020-08 Yes [id number] 25mg Take 25 mg [facility] 25 mg Tab 2-27 [facility] [address] [facility] Yes 1{each} inject 1 U nivers 32 gauge x 2-27 Each under ity of 1/5" Ndle 00:00: the skin 4 [place] 00 (four) Medical times Branch daily. JARDIANCE 2020-08 Yes [id number] 25mg Take 25 mg [facility] 25 mg Tab 2-27 by mouth ity of 00:00: daily. [place] [facility] 2020-08 Yes 1{each} inject 1 U nivers 32 gauge x 2-27 Each under ity of 1/5" Ndle 00:00: the skin 4 [place] 00 (four) Medical times Branch daily. JARDIANCE 2020-08 Yes [id number] 25mg Take 25 mg [facility] 25 mg Tab 2-27 by mouth ity of 00:00: daily. [place] [facility] 2020-08 Yes 1{each} inject 1 U nivers 32 gauge x 2-27 Each under ity of 1/5" Ndle 00:00: the skin 4 [place] 00 (four) Medical times Branch daily. JARDIANCE 2020-08 Yes [id number] 25mg Take 25 mg [facility] 25 mg Tab 2-27 by mouth ity of 00:00: daily. [place] [facility] 2020-08 Yes 1{each} inject 1 U nivers 32 gauge x 2-27 Each under ity of 1/5" Ndle 00:00: the skin 4 [place] 00 (four) Medical times Branch daily. JARDIANCE 2020-08 Yes [id number] 25mg Take 25 mg [facility] 25 mg Tab 2-27 by mouth ity of 00:00: daily. [place] [facility] 2020-08 Yes 1{each} inject 1 U nivers 32 gauge x 2-27 Each under ity of 1/5" Ndle 00:00: the skin 4 [place] 00 (four) Medical times Branch daily. JARDIANCE 2020-08 Yes [id number] 25mg Take 25 mg [facility] 25 mg Tab 2-27 by mouth ity of 00:00: daily. [place] [facility] 2020-08 Yes 1{each} inject 1 U nivers 32 gauge x 2-27 Each under ity of 1/5" Ndle 00:00: the skin 4 [place] 00 (four) Medical times Branch daily. JARDIANCE 2020-08 Yes [id number] 25mg Take 25 mg [facility] 25 mg Tab 2-27 by mouth ity of 00:00: daily. [address] Branch [facility] 2020-08 Yes 1{each} inject 1 U nivers 32 gauge x 2-27 Each under ity of 1/5" Ndle 00:00: the skin 4 [place] 00 (four) Medical times Branch daily. JARDIANCE 2020-08 Yes [id number] 25mg Take 25 mg [facility] 25 mg Tab 2-27 by mouth ity of 00:00: daily. [address] Branch [facility] 2020-08 Yes 1{each} inject 1 U nivers 32 gauge x 2-27 Each under ity of 1/5" Ndle 00:00: the skin 4 [place] 00 (four) Medical times Branch daily. JARDIANCE 2020-08 Yes [id number] 25mg Take 25 mg [facility] 25 mg Tab 2-27 by mouth ity of 00:00: daily. [address] [facility] 2020-08 Yes 1{each} inject 1 U nivers 32 gauge x 2-27 Each under ity of 1/5" Ndle 00:00: the skin 4 [place] 00 (four) Medical times Branch daily. JARDIANCE 2020-08 Yes [id number] 25mg Take 25 mg [facility] 25 mg Tab 2-27 by mouth ity of 00:00: daily. [address] [facility] 2020-08 Yes 1{each} inject 1 U nivers 32 gauge x 2-27 Each under ity of 1/5" Ndle 00:00: the skin 4 [place] 00 (four) Medical times Branch daily. JARDIANCE 2020-08 Yes [id number] 25mg Take 25 mg [facility] 25 mg Tab 2-27 by mouth ity of 00:00: daily. [address] [facility] 2020-08 Yes 1{each} inject 1 U nivers 32 gauge x 2-27 Each under ity of 1/5" Ndle 00:00: the skin 4 [place] 00 (four) Medical times Branch daily. JARDIANCE 2020-08 Yes [id number] 25mg Take 25 mg [facility] 25 mg Tab 2-27 by mouth ity of 00:00: daily. [address] Branch [facility] 2020-08 Yes 1{each} inject 1 U nivers 32 gauge x 2-27 Each under ity of 1/5" Ndle 00:00: the skin 4 [place] 00 (four) Medical times Branch daily. JARDIANCE 2020-08 Yes [id number] 25mg Take 25 mg [facility] 25 mg Tab 2-27 by mouth ity of 00:00: daily. [address] Branch [facility] 2020-08 Yes 1{each} inject 1 U nivers 32 gauge x 2-27 Each under ity of 1/5" Ndle 00:00: the skin 4 [place] 00 (four) Medical times Branch daily. JARDIANCE 2020-08 Yes [id number] 25mg Take 25 mg [facility] 25 mg Tab 2-27 by mouth ity of 00:00: daily. [address] [facility] 2020-08 Yes 1{each} inject 1 U nivers 32 gauge x 2-27 Each under ity of 1/5" Ndle 00:00: the skin 4 [place] 00 (four) Medical times Branch daily. JARDIANCE 2020-08 Yes [id number] 25mg Take 25 mg [facility] 25 mg Tab 2-27 by mouth ity of 00:00: daily. [address] Branch [facility] 2020-08 Yes 1{each} inject 1 U nivers 32 gauge x 2-27 Each under ity of 1/5" Ndle 00:00: the skin 4 [place] 00 (four) Medical times Branch daily. JARDIANCE 2020-08 Yes [id number] 25mg Take 25 mg [facility] 25 mg Tab 2-27 by mouth ity of 00:00: daily. [address] Branch [facility] 2020-08 Yes 1{each} inject 1 U nivers 32 gauge x 2-27 Each under ity of 1/5" Ndle 00:00: the skin 4 [place] 00 (four) Medical times Branch daily. JARDIANCE 2020-08 Yes [id number] 25mg Take 25 mg [facility] 25 mg Tab 2-27 by mouth ity of 00:00: daily. [address] [facility] 2020-08 Yes 1{each} inject 1 U nivers 32 gauge x 2-27 Each under ity of 1/5" Ndle 00:00: the skin 4 [place] 00 (four) Medical times Branch daily. JARDIANCE 2020-08 Yes [id number] 25mg Take 25 mg [facility] 25 mg Tab 2-27 by mouth ity of 00:00: daily. [address] [facility] 2020-08 Yes 1{each} inject 1 U nivers 32 gauge x 2-27 Each under ity of 1/5" Ndle 00:00: the skin 4 [place] 00 (four) Medical times Branch daily. JARDIANCE 2020-08 Yes [id number] 25mg Take 25 mg [facility] 25 mg Tab 2-27 by mouth ity of 00:00: daily. [address] [facility] 2020-08 Yes 1{each} inject 1 U nivers 32 gauge x 2-27 Each under ity of 1/5" Ndle 00:00: the skin 4 [place] 00 (four) Medical times Branch daily. JARDIANCE 2020-08 Yes [id number] 25mg Take 25 mg [facility] 25 mg Tab 2-27 by mouth ity of 00:00: daily. [address] [facility] Yes 1{each} inject 1 U nivers 32 gauge x 2-27 Each under ity of 1/5" Ndle 00:00: the skin 4 [place] 00 (four) Medical times Branch daily. JARDIANCE 2020-08 Yes [id number] 25mg Take 25 mg [facility] 25 mg Tab 2-27 by mouth ity of 00:00: daily. [address] [facility] 2020-08 Yes 1{each} inject 1 U nivers 32 gauge x 2-27 Each under ity of 1/5" Ndle 00:00: the skin 4 [place] 00 (four) Medical times Branch daily. JARDIANCE 2020-08 Yes [id number] 25mg Take 25 mg [facility] 25 mg Tab 2-27 by mouth ity of 00:00: daily. [address] [facility] 2020-08 Yes 1{each} inject 1 U nivers 32 gauge x 2-27 Each under ity of 1/5" Ndle 00:00: the skin 4 [place] 00 (four) Medical times Branch daily. JARDIANCE 2020-08 Yes [id number] 25mg Take 25 mg [facility] 25 mg Tab 2-27 by mouth ity of 00:00: daily. [address] [facility] 2020-08 Yes 1{each} inject 1 U nivers 32 gauge x 2-27 Each under ity of 1/5" Ndle 00:00: the skin 4 [place] 00 (four) Medical times Branch daily. JARDIANCE 2020-08 Yes [id number] 25mg Take 25 mg [facility] 25 mg Tab 2-27 by mouth ity of 00:00: daily. [place] [facility] 2020-08 Yes 1{each} inject 1 U nivers 32 gauge x 2-27 Each under ity of 1/5" Ndle 00:00: the skin 4 [place] 00 (four) Medical times Branch daily. JARDIANCE 2020-08 Yes [id number] 25mg Take 25 mg [facility] 25 mg Tab 2-27 by mouth ity of 00:00: daily. [address] [facility] 2020-08 Yes 1{each} inject 1 U nivers 32 gauge x 2-27 Each under ity of 1/5" Ndle 00:00: the skin 4 [place] 00 (four) Medical times Branch daily. JARDIANCE 2020-08 Yes [id number] 25mg Take 25 mg [facility] 25 mg Tab 2-27 by mouth ity of 00:00: daily. [address] [facility] 2020-08 Yes 1{each} inject 1 U nivers 32 gauge x 2-27 Each under ity of 1/5" Ndle 00:00: the skin 4 [place] 00 (four) Medical times Branch daily. JARDIANCE 2020-08 Yes [id number] 25mg Take 25 mg [facility] 25 mg Tab 2-27 by mouth ity of 00:00: daily. [address] [facility] 2020-08 Yes 1{each} inject 1 U nivers 32 gauge x 2-27 Each under ity of 1/5" Ndle 00:00: the skin 4 [place] 00 (four) Medical times Branch daily. JARDIANCE 2020-08 Yes [id number] 25mg Take 25 mg [facility] 25 mg Tab 2-27 by mouth ity of 00:00: daily. [address] [facility] 2020-08 Yes 1{each} inject 1 U nivers 32 gauge x 2-27 Each under ity of 1/5" Ndle 00:00: the skin 4 [place] 00 (four) Medical times Branch daily. JARDIANCE 2020-08 Yes [id number] 25mg Take 25 mg [facility] 25 mg Tab 2-27 by mouth ity of 00:00: daily. [address] [facility] 2020-08 Yes 1{each} inject 1 U nivers 32 gauge x 2-27 Each under ity of 1/5" Ndle 00:00: the skin 4 [place] 00 (four) Medical times Branch daily. JARDIANCE 2020-08 Yes [id number] 25mg Take 25 mg [facility] 25 mg Tab 2-27 by mouth ity of 00:00: daily. [address] [facility] 2020-08 Yes 1{each} inject 1 U nivers 32 gauge x 2-27 Each under ity of 1/5" Ndle 00:00: the skin 4 [place] 00 (four) Medical times Branch daily. JARDIANCE 2020-08 Yes [id number] 25mg Take 25 mg [facility] 25 mg Tab 2-27 by mouth ity of 00:00: daily. [address] [facility] 2020-08 Yes 1{each} inject 1 U nivers 32 gauge x 2-27 Each under ity of 1/5" Ndle 00:00: the skin 4 [place] 00 (four) Medical times Branch daily. JARDIANCE 2020-08 Yes [id number] 25mg Take 25 mg [facility] 25 mg Tab 2-27 by mouth ity of 00:00: daily. [address] [facility] 2020-08 Yes 1{each} inject 1 U nivers 32 gauge x 2-27 Each under ity of 1/5" Ndle 00:00: the skin 4 [place] 00 (four) Medical times Branch daily. JARDIANCE 2020-08 Yes [id number] 25mg Take 25 mg [facility] 25 mg Tab 2-27 by mouth ity of 00:00: daily. [address] [facility] 2020-08 Yes 1{each} inject 1 U nivers 32 gauge x 2-27 Each under ity of 1/5" Ndle 00:00: the skin 4 [place] 00 (four) Medical times Branch daily. JARDIANCE 2020-08 Yes [id number] 25mg Take 25 mg [facility] 25 mg Tab 2-27 by mouth ity of 00:00: daily. [address] [facility] 2020-08 Yes 1{each} inject 1 U nivers 32 gauge x 2-27 Each under ity of 1/5" Ndle 00:00: the skin 4 [place] 00 (four) Medical times Branch daily. JARDIANCE 2020-08 Yes [id number] 25mg Take 25 mg [facility] 25 mg Tab 2-27 by mouth ity of 00:00: daily. [place] [facility] 2020-08 Yes 1{each} inject 1 U nivers 32 gauge x 2-27 Each under ity of 1/5" Ndle 00:00: the skin 4 [place] 00 (four) Medical times Branch daily. JARDIANCE 2020-08 Yes [id number] 25mg Take 25 mg [facility] 25 mg Tab 2-27 by mouth ity of 00:00: daily. [address] [facility] 2020-08 Yes 1{each} inject 1 U nivers 32 gauge x 2-27 Each under ity of 1/5" Ndle 00:00: the skin 4 [place] 00 (four) Medical times Branch daily. JARDIANCE 2020-08 Yes [id number] 25mg Take 25 mg [facility] 25 mg Tab 2-27 by mouth ity of 00:00: daily. [address] [facility] 2020-08 Yes 1{each} inject 1 U nivers 32 gauge x 2-27 Each under ity of 1/5" Ndle 00:00: the skin 4 [place] 00 (four) Medical times Branch daily. JARDIANCE 2020-08 Yes [id number] 25mg Take 25 mg [facility] 25 mg Tab 2-27 by mouth ity of 00:00: daily. [address] [facility] 2020-08 Yes 1{each} inject 1 U nivers 32 gauge x 2-27 Each under ity of 1/5" Ndle 00:00: the skin 4 [place] 00 (four) Medical times Branch daily. JARDIANCE 2020-08 Yes [id number] 25mg Take 25 mg [facility] 25 mg Tab 2-27 by mouth ity of 00:00: daily. [address] [facility] 2020-08 Yes 1{each} inject 1 U nivers 32 gauge x 2-27 Each under ity of 1/5" Ndle 00:00: the skin 4 [place] 00 (four) Medical times Branch daily. JARDIANCE 2020-08 Yes [id number] 25mg Take 25 mg [facility] 25 mg Tab 2-27 by mouth ity of 00:00: daily. [place] [facility] 2020-08 Yes 1{each} inject 1 U nivers 32 gauge x 2-27 Each under ity of 1/5" Ndle 00:00: the skin 4 [place] 00 (four) Medical times Branch daily. JARDIANCE 2020-08 Yes [id number] 25mg Take 25 mg [facility] 25 mg Tab 2-27 by mouth ity of 00:00: daily. [place] [facility] 2020-08 Yes 1{each} inject 1 U nivers 32 gauge x 2-27 Each under ity of 1/5" Ndle 00:00: the skin 4 [place] 00 (four) Medical times Branch daily. JARDIANCE 2020-08 Yes [id number] 25mg Take 25 mg [facility] 25 mg Tab 2-27 by mouth ity of 00:00: daily. [address] [facility] 2020-08 Yes 1{each} inject 1 U nivers 32 gauge x 2-27 Each under ity of 1/5" Ndle 00:00: the skin 4 [place] 00 (four) Medical times Branch daily. JARDIANCE 2020-08 Yes [id number] 25mg Take 25 mg [facility] 25 mg Tab 2-27 by mouth ity of 00:00: daily. [address] [facility] 2020-08 Yes 1{each} inject 1 U nivers 32 gauge x 2-27 Each under ity of 1/5" Ndle 00:00: the skin 4 [place] 00 (four) Medical times Branch daily. JARDIANCE 2020-08 Yes [id number] 25mg Take 25 mg [facility] 25 mg Tab 2-27 by mouth ity of 00:00: daily. [address] [facility] 2020-08 Yes 1{each} inject 1 U nivers 32 gauge x 2-27 Each under ity of 1/5" Ndle 00:00: the skin 4 [place] 00 (four) Medical times Branch daily. JARDIANCE 2020-08 Yes [id number] 25mg Take 25 mg [facility] 25 mg Tab 2-27 by mouth ity of 00:00: daily. [address] [facility] 2020-08 Yes 1{each} inject 1 U nivers 32 gauge x 2-27 Each under ity of 1/5" Ndle 00:00: the skin 4 [place] 00 (four) Medical times Branch daily. JARDIANCE 2020-08 Yes [id number] 25mg Take 25 mg [facility] 25 mg Tab 2-27 by mouth ity of 00:00: daily. [address] [facility] 2020-08 Yes 1{each} inject 1 U nivers 32 gauge x 2-27 Each under ity of 1/5" Ndle 00:00: the skin 4 [place] 00 (four) Medical times Branch daily. JARDIANCE 2020-08 Yes [id number] 25mg Take 25 mg [facility] 25 mg Tab 2-27 by mouth ity of 00:00: daily. [address] [facility] 2020-08 Yes 1{each} inject 1 U nivers 32 gauge x 2-27 Each under ity of 1/5" Ndle 00:00: the skin 4 [place] 00 (four) Medical times Branch daily. JARDI[facility] 2020-08 Yes [id number] 25mg Take 25 mg [facility] 25 mg Tab 2-27 by mouth ity of 00:00: daily. [address] [facility] 2020-08 Yes 1{each} inject 1 U nivers 32 gauge x 2-27 Each under ity of 1/5" Ndle 00:00: the skin 4 [place] 00 (four) Medical times Branch daily. JARDIANCE 2020-08 Yes [id number] 25mg Take 25 mg [facility] 25 mg Tab 2-27 by mouth ity of 00:00: daily. [address] [facility] 2020-08 Yes 1{each} inject 1 U nivers 32 gauge x 2-27 Each under ity of 1/5" Ndle 00:00: the skin 4 [place] 00 (four) Medical times Branch daily. JARDIANCE 2020-08 Yes [id number] 25mg Take 25 mg [facility] 25 mg Tab 2-27 by mouth ity of 00:00: daily. [address] [facility] 2020-08 Yes 1{each} inject 1 U nivers 32 gauge x 2-27 Each under ity of 1/5" Ndle 00:00: the skin 4 [place] 00 (four) Medical times Branch daily. JARDIANCE 2020-08 Yes [id number] 25mg Take 25 mg [facility] 25 mg Tab 2-27 by mouth ity of 00:00: daily. [address] [facility] 2020-08 Yes 1{each} inject 1 U nivers 32 gauge x 2-27 Each under ity of 1/5" Ndle 00:00: the skin 4 [place] 00 (four) Medical times Branch daily. JARDIANCE 2020-08 Yes [id number] 25mg Take 25 mg [facility] 25 mg Tab 2-27 by mouth ity of 00:00: daily. [address] [facility] 2020-08 Yes 1{each} inject 1 U nivers 32 gauge x 2-27 Each under ity of 1/5" Ndle 00:00: the skin 4 [place] 00 (four) Medical times Branch daily. JARDIANCE 2020-08 Yes [id number] 25mg Take 25 mg [facility] 25 mg Tab 2-27 by mouth ity of 00:00: daily. [address] [facility] 2020-08 Yes 1{each} inject 1 U nivers 32 gauge x 2-27 Each under ity of 1/5" Ndle 00:00: the skin 4 [place] 00 (four) Medical times Branch daily. JARDIANCE 2020-08 Yes [id number] 25mg Take 25 mg [facility] 25 mg Tab 2-27 by mouth ity of 00:00: daily. [address] [facility] 2020-08 Yes 1{each} inject 1 U nivers 32 gauge x 2-27 Each under ity of 1/5" Ndle 00:00: the skin 4 [place] 00 (four) Medical times Branch daily. JARDIANCE 2020-08 Yes [id number] 25mg Take 25 mg [facility] 25 mg Tab 2-27 by mouth ity of 00:00: daily. [address] [facility] 2020-08 Yes 1{each} inject 1 U nivers 32 gauge x 2-27 Each under ity of 1/5" Ndle 00:00: the skin 4 [place] 00 (four) Medical times Branch daily. JARDI[facility] 2020-08 Yes [id number] 25mg Take 25 mg [facility] 25 mg Tab 2-27 by mouth ity of 00:00: daily. Medical Branch [facility] 2020-08 Yes 1{each} inject 1 U nivers 32 gauge x 2-27 Each under ity of 08/08" Ndle 00:00: the skin 4 [place] 00 (four) Medical times Branch daily. JARDI[facility] 2020-08 Yes [id number] 25mg Take 25 mg [facility] 25 mg Tab 2-27 by mouth ity of 00:00: daily. Medical Branch omeprazole 2020- Yes [id number] 40mg Take 1 [facility] 40 mg 0-08 capsule by ity of capsule 00:00: mouth [place] 00 daily. Medical Appointmen Branch t needed for refills omeprazole 2020-1 Yes [id number] 40mg Take 1 [facility] 40 mg 0-08 capsule by ity of capsule 00:00: mouth [place] 00 daily. Medical Appointmen Branch t needed for refills omeprazole 2020-1 Yes [id number] 40mg Take 1 [facility] 40 mg 0-08 capsule by ity of capsule 00:00: mouth [place] 00 daily. Medical Appointmen Branch t needed for refills omeprazole 2020-1 Yes [id number] 40mg Take 1 [facility] 40 mg 0-08 capsule by ity of capsule 00:00: mouth [place] 00 daily. Medical Appointmen Branch t needed for refills omeprazole 2020-1 Yes [id number] 40mg Take 1 [facility] 40 mg 0-08 capsule by ity of capsule 00:00: mouth [place] 00 daily. Medical Appointmen Branch t needed for refills omeprazole 2020-1 Yes [id number] 40mg Take 1 [facility] 40 mg 0-08 capsule by ity of capsule 00:00: mouth [place] 00 daily. Medical Appointmen Branch t needed for refills omeprazole 2020-1 Yes [id number] 40mg Take 1 [facility] 40 mg 0-08 capsule by ity of capsule 00:00: mouth [place] 00 daily. Medical Appointmen Branch t needed for refills omeprazole 2020-1 Yes [id number] 40mg Take 1 [facility] 40 mg 0-08 capsule by ity of capsule 00:00: mouth [place] 00 daily. Medical Appointmen Branch t needed for refills omeprazole 2020-1 Yes [id number] 40mg Take 1 [facility] 40 mg 0-08 capsule by ity of capsule 00:00: mouth [place] 00 daily. Medical Appointmen Branch t needed for refills omeprazole 2020-1 Yes [id number] 40mg Take 1 [facility] 40 mg 0-08 capsule by ity of capsule 00:00: mouth [place] 00 daily. Medical Appointmen Branch t needed for refills omeprazole 2020-1 Yes [id number] 40mg Take 1 [facility] 40 mg 0-08 capsule by ity of capsule 00:00: mouth [place] 00 daily. Medical Appointmen Branch t needed for refills omeprazole 2020-1 Yes [id number] 40mg Take 1 [facility] 40 mg 0-08 capsule by ity of capsule 00:00: mouth [place] 00 daily. Medical Appointmen Branch t needed for refills omeprazole 2020-1 Yes [id number] 40mg Take 1 [facility] 40 mg 0-08 capsule by ity of capsule 00:00: mouth [place] 00 daily. Medical Appointmen Branch t needed for refills omeprazole 2020-1 Yes [id number] 40mg Take 1 [facility] 40 mg 0-08 capsule by ity of capsule 00:00: mouth [place] 00 daily. Medical Appointmen Branch t needed for refills omeprazole 2020-1 Yes [id number] 40mg Take 1 [facility] 40 mg 0-08 capsule by ity of capsule 00:00: mouth [place] 00 daily. Medical Appointmen Branch t needed for refills omeprazole 2020-1 Yes [id number] 40mg Take 1 [facility] 40 mg 0-08 capsule by ity of capsule 00:00: mouth [place] 00 daily. Medical Appointmen Branch t needed for refills omeprazole 2020-1 Yes [id number] 40mg Take 1 [facility] 40 mg 0-08 capsule by ity of capsule 00:00: mouth [place] 00 daily. Medical Appointmen Branch t needed for refills omeprazole 2020-1 Yes [id number] 40mg Take 1 [facility] 40 mg 0-08 capsule by ity of capsule 00:00: mouth [place] 00 daily. Medical Appointmen Branch t needed for refills omeprazole 2020-1 Yes [id number] 40mg Take 1 [facility] 40 mg 0-08 capsule by ity of capsule 00:00: mouth [place] 00 daily. Medical Appointmen Branch t needed for refills omeprazole 2020-1 Yes [id number] 40mg Take 1 [facility] 40 mg 0-08 capsule by ity of capsule 00:00: mouth [place] 00 daily. Medical Appointmen Branch t needed for refills omeprazole 2020-1 Yes [id number] 40mg Take 1 [facility] 40 mg 0-08 capsule by ity of capsule 00:00: mouth [place] 00 daily. Medical Appointmen Branch t needed for refills omeprazole 2020-1 Yes [id number] 40mg Take 1 [facility] 40 mg 0-08 capsule by ity of capsule 00:00: mouth [place] 00 daily. Medical Appointmen Branch t needed for refills omeprazole 2020-1 Yes [id number] 40mg Take 1 [facility] 40 mg 0-08 capsule by ity of capsule 00:00: mouth [place] 00 daily. Medical Appointmen Branch t needed for refills omeprazole 2020-1 Yes [id number] 40mg Take 1 [facility] 40 mg 0-08 capsule by ity of capsule 00:00: mouth [place] 00 daily. Medical [facility] t needed for refills omeprazole 2020-1 2021- No [id number] 40mg Take 1 [facility] 40 mg 0-08 12-12 capsule by ity of capsule 00:00: 00:00 mouth [place] 00 :00 daily. [facility] t needed for refills omeprazole 2020-1 202- No [id number] 40mg Take 1 [facility] 40 mg 0-08 12-12 capsule by ity of capsule 00:00: 00:00 mouth [place] 00 :00 daily. [facility] t needed for refills FREESTYLE 2020-0 Yes [id number] 1{kit} 1 Kit U nivers LISANDRO 14 7-20 daily. ity of DAY READER 00:00: E11. [facility] FREESTYLE 2020-0 Yes [id number] 1{kit} 1 Kit U nivers LISANDRO 14 7-20 daily. ity of DAY READER 00:00: E11. [facility] Branch FREESTYLE 2020-0 Yes [id number] 1{kit} 1 Kit U nivers LISANDRO 14 7-20 daily. ity of DAY READER 00:00: E11. [facility] Branch FREESTYLE 2020-0 Yes [id number] 1{kit} 1 Kit U nivers LISANDRO 14 7-20 daily. ity of DAY READER 00:00: E11. [place] [address] [facility] Branch FREESTYLE 2020-0 Yes [id number] 1{kit} 1 Kit U nivers LISANDRO 14 7-20 daily. ity of DAY READER 00:00: E11.65 [facility] Branch FREESTYLE 2020-0 Yes [id number] 1{kit} 1 Kit U nivers LISANDRO 14 7-20 daily. ity of DAY READER 00:00: E11. [facility] Branch FREESTYLE 2020-0 Yes [id number] 1{kit} 1 Kit U nivers LISANDRO 14 7-20 daily. ity of DAY READER 00:00: E11. [place] [address] [facility] Branch FREESTYLE 2020-0 Yes [id number] 1{kit} 1 Kit U nivers LISANDRO 14 7-20 daily. ity of DAY READER 00:00: E11. [place] [address] [facility] FREESTYLE 2020-0 Yes [id number] 1{kit} 1 Kit U nivers LISANDRO 14 7-20 daily. ity of DAY READER 00:00: E11. [place] [address] [facility] Branch FREESTYLE 2020-0 Yes [id number] 1{kit} 1 Kit U nivers LISANDRO 14 7-20 daily. ity of DAY READER 00:00: E11. [place] [address] [facility] FREESTYLE 2020-0 Yes [id number] 1{kit} 1 Kit U nivers LISANDRO 14 7-20 daily. ity of DAY READER 00:00: E11. [place] [address] [facility] FREESTYLE 2020-0 Yes [id number] 1{kit} 1 Kit U nivers LISANDRO 14 7-20 daily. ity of DAY READER 00:00: E11. [place] [address] [facility] FREESTYLE 2020-0 Yes [id number] 1{kit} 1 Kit U nivers LISANDRO 14 7-20 daily. ity of DAY READER 00:00: E11. [place] [address] [facility] FREESTYLE 2020-0 Yes [id number] 1{kit} 1 Kit U nivers LISANDRO 14 7-20 daily. ity of DAY READER 00:00: E11.65 [place] [address] [facility] FREESTYLE 2020-0 Yes [id number] 1{kit} 1 Kit U nivers LISANDRO 14 7-20 daily. ity of DAY READER 00:00: E11. [place] [address] [facility] FREESTYLE 2020-0 Yes [id number] 1{kit} 1 Kit U nivers LISANDRO 14 7-20 daily. ity of DAY READER 00:00: E11. [place] [address] [facility] FREESTYLE 2020-0 Yes [id number] 1{kit} 1 Kit U nivers LISANDRO 14 7-20 daily. ity of DAY READER 00:00: E11. [facility] Branch FREESTYLE 2020-0 Yes [id number] 1{kit} 1 Kit U nivers LISANDRO 14 7-20 daily. ity of DAY READER 00:00: E11. [place] [address] [facility] Branch FREESTYLE 2020-0 Yes [id number] 1{kit} 1 Kit U nivers LISANDRO 14 7-20 daily. ity of DAY READER 00:00: E11. [place] [address] [facility] FREESTYLE 2020-0 Yes [id number] 1{kit} 1 Kit U nivers LISANDRO 14 7-20 daily. ity of DAY READER 00:00: E11. [place] [address] [facility] Branch FREESTYLE 2020-0 Yes [id number] 1{kit} 1 Kit U nivers LISANDRO 14 7-20 daily. ity of DAY READER 00:00: E11. [place] [address] [facility] FREESTYLE 2020-0 Yes [id number] 1{kit} 1 Kit U nivers LISANDRO 14 7-20 daily. ity of DAY READER 00:00: E11. [place] [address] [facility] Branch FREESTYLE 2020-0 Yes [id number] 1{kit} 1 Kit U nivers LISANDRO 14 7-20 daily. ity of DAY READER 00:00: E11. [place] [address] [facility] FREESTYLE 2020-0 Yes [id number] 1{kit} 1 Kit U nivers LISANDRO 14 7-20 daily. ity of DAY READER 00:00: E11. [place] [address] [facility] FREESTYLE 2020-0 Yes [id number] 1{kit} 1 Kit U nivers LISANDRO 14 7-20 daily. ity of DAY READER 00:00: E11. [place] [address] [facility] FREESTYLE 2020-0 Yes [id number] 1{kit} 1 Kit U nivers LISANDRO 14 7-20 daily. ity of DAY READER 00:00: E11. [place] [address] [facility] FREESTYLE 2020-0 Yes [id number] 1{kit} 1 Kit U nivers LISANDRO 14 7-20 daily. ity of DAY READER 00:00: E11. [place] [address] [facility] Branch FREESTYLE 2020-0 Yes [id number] 1{kit} 1 Kit U nivers LISANDRO 14 7-20 daily. ity of DAY READER 00:00: E11. [place] [address] [facility] FREESTYLE 2020-0 Yes [id number] 1{kit} 1 Kit U nivers LISANDRO 14 7-20 daily. ity of DAY READER 00:00: E11. [place] [address] [facility] FREESTYLE 2020-0 Yes [id number] 1{kit} 1 Kit U nivers LISANDRO 14 7-20 daily. ity of DAY READER 00:00: E11. [place] [address] [facility] Branch FREESTYLE 2020-0 Yes [id number] 1{kit} 1 Kit U nivers LISANDRO 14 7-20 daily. ity of DAY READER 00:00: E11. [place] [address] [facility] Branch FREESTYLE 2020-0 Yes [id number] 1{kit} 1 Kit U nivers LISANDRO 14 7-20 daily. ity of DAY READER 00:00: E11. [place] [address] [facility] Branch FREESTYLE 2020-0 Yes [id number] 1{kit} 1 Kit U nivers LISANDRO 14 7-20 daily. ity of DAY READER 00:00: E11. [place] [address] [facility] Branch FREESTYLE 2020-0 Yes [id number] 1{kit} 1 Kit U nivers LISANDRO 14 7-20 daily. ity of DAY READER 00:00: E11. [place] [address] [facility] FREESTYLE 2020-0 Yes [id number] 1{kit} 1 Kit U nivers LISANDRO 14 7-20 daily. ity of DAY READER 00:00: E11. [place] [address] [facility] FREESTYLE 2020-0 Yes [id number] 1{kit} 1 Kit U nivers LISANDRO 14 7-20 daily. ity of DAY READER 00:00: E11. [place] [address] [facility] FREESTYLE 2020-0 Yes [id number] 1{kit} 1 Kit U nivers LISANDRO 14 7-20 daily. ity of DAY READER 00:00: E11. [place] [address] [facility] FREESTYLE 2020-0 Yes [id number] 1{kit} 1 Kit U nivers LISANDRO 14 7-20 daily. ity of DAY READER 00:00: E11. [place] [address] [facility] FREESTYLE 2020-0 Yes [id number] 1{kit} 1 Kit U nivers LISANDRO 14 7-20 daily. ity of DAY READER 00:00: . [facility] Branch FREESTYLE 2020-0 Yes [id number] 1{kit} 1 Kit U nivers LISANDRO 14 7-20 daily. ity of DAY READER 00:00: . [place] [address] [facility] Branch FREESTYLE 2020-0 Yes [id number] 1{kit} 1 Kit U nivers LISANDRO 14 7-20 daily. ity of DAY READER 00:00: E11. [place] [address] [facility] FREESTYLE 2020-0 Yes [id number] 1{kit} 1 Kit U nivers LISANDRO 14 7-20 daily. ity of DAY READER 00:00: E11. [place] [address] [facility] FREESTYLE 2020-0 Yes [id number] 1{kit} 1 Kit U nivers LISANDRO 14 7-20 daily. ity of DAY READER 00:00: . [place] [address] [facility] Branch FREESTYLE 2020-0 Yes [id number] 1{kit} 1 Kit U nivers LISANDRO 14 7-20 daily. ity of DAY READER 00:00: . [place] [address] [facility] Branch FREESTYLE 2020-0 Yes [id number] 1{kit} 1 Kit U nivers LISANDRO 14 7-20 daily. ity of DAY READER 00:00: E11. [place] [address] [facility] Branch FREESTYLE 2020-0 Yes [id number] 1{kit} 1 Kit U nivers LISANDRO 14 7-20 daily. ity of DAY READER 00:00: . [place] [address] [facility] FREESTYLE 2020-0 Yes [id number] 1{kit} 1 Kit U nivers LISANDRO 14 7-20 daily. ity of DAY READER 00:00: E11. [place] [address] [facility] FREESTYLE 2020-0 Yes [id number] 1{kit} 1 Kit U nivers LISANDRO 14 7-20 daily. ity of DAY READER 00:00: E11. [place] [address] [facility] FREESTYLE 2020-0 Yes [id number] 1{kit} 1 Kit U nivers LISANDRO 14 7-20 daily. ity of DAY READER 00:00: E11.65 [place] [address] [facility] Branch FREESTYLE 2020-0 Yes [id number] 1{kit} 1 Kit U nivers LISANDRO 14 7-20 daily. ity of DAY READER 00:00: E11. [place] [address] [facility] Branch FREESTYLE 2020-0 Yes [id number] 1{kit} 1 Kit U nivers LISANDRO 14 7-20 daily. ity of DAY READER 00:00: E11. [place] [address] [facility] Branch FREESTYLE 2020-0 Yes [id number] 1{kit} 1 Kit U nivers LISANDRO 14 7-20 daily. ity of DAY READER 00:00: E11. [place] [address] [facility] Branch FREESTYLE 2020-0 Yes [id number] 1{kit} 1 Kit U nivers LISANDRO 14 7-20 daily. ity of DAY READER 00:00: E11. [place] [address] [facility] FREESTYLE 2020-0 Yes [id number] 1{kit} 1 Kit U nivers LISANDRO 14 7-20 daily. ity of DAY READER 00:00: E11. [place] [address] [facility] Branch FREESTYLE 2020-0 Yes [id number] 1{kit} 1 Kit U nivers LISANDRO 14 7-20 daily. ity of DAY READER 00:00: E11. [place] [address] [facility] FREESTYLE 2020-0 Yes [id number] 1{kit} 1 Kit U nivers LISANDRO 14 7-20 daily. ity of DAY READER 00:00: E11. [place] [address] [facility] Branch FREESTYLE 2020-0 Yes [id number] 1{kit} 1 Kit U nivers LISANDRO 14 7-20 daily. ity of DAY READER 00:00: E11. [place] [address] [facility] FREESTYLE 2020-0 Yes [id number] 1{kit} 1 Kit U nivers LISANDRO 14 7-20 daily. ity of DAY READER 00:00: E11. [place] [address] [facility] FREESTYLE 2020-0 Yes [id number] 1{kit} 1 Kit U nivers LISANDRO 14 7-20 daily. ity of DAY READER 00:00: E11. [place] [address] [facility] Branch FREESTYLE 2020-0 Yes [id number] 1{kit} 1 Kit U nivers LISANDRO 14 7-20 daily. ity of DAY READER 00:00: E11. [facility] Branch FREESTYLE 2020-0 Yes [id number] 1{kit} 1 Kit U nivers LISANDRO 14 7-20 daily. ity of DAY READER 00:00: E11. [facility] Branch FREESTYLE 2020-0 Yes [id number] 1{kit} 1 Kit U nivers LISANDRO 14 7-20 daily. ity of DAY READER 00:00: E11. [place] [address] [facility] Branch FREESTYLE 2020-0 Yes [id number] 1{kit} 1 Kit U nivers LISANDRO 14 7-20 daily. ity of DAY READER 00:00: E11. [facility] Branch sumatriptan 2019-1 Yes Univer s 100 mg 1-24 ity of tablet 00:00: [place] [facility] sumatriptan 2019-1 Yes Univer s 100 mg 1-24 ity of tablet 00:00: [place] [facility] sumatriptan 2019-1 Yes Univer s 100 mg 1-24 ity of tablet 00:00: [place] [facility] sumatriptan 2019-1 Yes Univer s 100 mg 1-24 ity of tablet 00:00: [place] [address] [facility] Branch sumatriptan 2019-1 Yes Univer s 100 mg 1-24 ity of tablet 00:00: [place] [facility] sumatriptan 2019-1 Yes Univer s 100 mg 1-24 ity of tablet 00:00: [place] [address] [facility] Branch sumatriptan 2019-1 Yes Univer s 100 mg 1-24 ity of tablet 00:00: [place] [facility] sumatriptan 2019-1 Yes Univer s 100 mg 1-24 ity of tablet 00:00: [place] [facility] sumatriptan 2019-1 Yes Univer s 100 mg 1-24 ity of tablet 00:00: [place] [facility] sumatriptan 2019-1 Yes Univer s 100 mg 1-24 ity of tablet 00:00: [place] [facility] sumatriptan 2019-1 Yes Univer s 100 mg 1-24 ity of tablet 00:00: [place] [address] [facility] Branch sumatriptan 2019-1 Yes Univer s 100 mg 1-24 ity of tablet 00:00: [place] [facility] sumatriptan 2019-1 Yes Univer s 100 mg 1-24 ity of tablet 00:00: [place] 00 [facility] Branch sumatriptan 2019-1 Yes Univer s 100 mg 1-24 ity of tablet 00:00: [place] 00 [facility] Branch sumatriptan 2019-1 Yes Univer s 100 mg 1-24 ity of tablet 00:00: [place] 00 [facility] Branch sumatriptan 2019-1 Yes Univer s 100 mg 1-24 ity of tablet 00:00: [place] 00 [facility] Branch sumatriptan 2019-1 Yes Univer s 100 mg 1-24 ity of tablet 00:00: [place] 00 [facility] Branch sumatriptan 2019- Yes Univer s 100 mg 1-24 ity of tablet 00:00: [place] 00 [facility] Branch sumatriptan 2019-1 Yes Univer s 100 mg 1-24 ity of tablet 00:00: [place] [facility] sumatriptan 2019- Yes Univer s 100 mg 1-24 ity of tablet 00:00: [place] [facility] sumatriptan 2019-1 Yes Univer s 100 mg 1-24 ity of tablet 00:00: [place] [facility] sumatriptan 2019-1 Yes Univer s 100 mg 1-24 ity of tablet 00:00: [place] [address] [facility] Branch sumatriptan 2019-1 Yes Univer s 100 mg 1-24 ity of tablet 00:00: [place] 00 [facility] Branch sumatriptan 2019-1 Yes Univer s 100 mg 1-24 ity of tablet 00:00: [place] [address] [facility] Branch sumatriptan 2019-1 Yes Univer s 100 mg 1-24 ity of tablet 00:00: [place] 00 [facility] Branch sumatriptan 2019-1 Yes Univer s 100 mg 1-24 ity of tablet 00:00: [place] 00 [facility] sumatriptan 2019-1 Yes Univer s 100 mg 1-24 ity of tablet 00:00: [place] 00 [facility] sumatriptan 2019-1 Yes Univer s 100 mg 1-24 ity of tablet 00:00: [place] 00 [facility] Branch sumatriptan 2019-1 Yes Univer s 100 mg 1-24 ity of tablet 00:00: [place] 00 [facility] sumatriptan 2019-1 Yes Univer s 100 mg 1-24 ity of tablet 00:00: [place] 00 [facility] sumatriptan 2019-1 Yes Univer s 100 mg 1-24 ity of tablet 00:00: [place] 00 [facility] Branch sumatriptan 2019-1 Yes Univer s 100 mg 1-24 ity of tablet 00:00: [place] 00 [facility] Branch sumatriptan 2019- Yes Univer s 100 mg 1-24 ity of tablet 00:00: [place] 00 [facility] Branch sumatriptan 2019- Yes Univer s 100 mg 1-24 ity of tablet 00:00: [place] [facility] sumatriptan 2019- Yes Univer s 100 mg 1-24 ity of tablet 00:00: [place] 00 [facility] Branch sumatriptan 2019- Yes Univer s 100 mg 1-24 ity of tablet 00:00: [place] [facility] sumatriptan 2019- Yes Univer s 100 mg 1-24 ity of tablet 00:00: [place] [facility] sumatriptan 2019- Yes Univer s 100 mg 1-24 ity of tablet 00:00: [place] [address] [facility] Branch sumatriptan 2019-1 Yes Univer s 100 mg 1-24 ity of tablet 00:00: [place] [facility] sumatriptan 2019- Yes Univer s 100 mg 1-24 ity of tablet 00:00: [place] [address] [facility] Branch sumatriptan 2019-1 Yes Univer s 100 mg 1-24 ity of tablet 00:00: [place] [address] [facility] Branch sumatriptan 2019-1 Yes Univer s 100 mg 1-24 ity of tablet 00:00: [place] [address] [facility] Branch sumatriptan 2019-1 Yes Univer s 100 mg 1-24 ity of tablet 00:00: [place] 00 [facility] Branch sumatriptan 2019-1 Yes Univer s 100 mg 1-24 ity of tablet 00:00: [place] 00 [facility] sumatriptan 2019-1 Yes Univer s 100 mg 1-24 ity of tablet 00:00: [place] [facility] sumatriptan 2019-1 Yes Univer s 100 mg 1-24 ity of tablet 00:00: [place] 00 [facility] sumatriptan 2019-1 Yes Univer s 100 mg 1-24 ity of tablet 00:00: [place] 00 [facility] sumatriptan 2019-1 Yes Univer s 100 mg 1-24 ity of tablet 00:00: [place] 00 [facility] sumatriptan 2019- Yes Univer s 100 mg 1-24 ity of tablet 00:00: [place] 00 [facility] Branch sumatriptan 2019- Yes Univer s 100 mg 1-24 ity of tablet 00:00: [place] 00 [facility] sumatriptan 2018-08 Yes Univer s 100 mg 1-24 ity of tablet 00:00: [place] [facility] sumatriptan 2018- Yes Univer s 100 mg 1-24 ity of tablet 00:00: [place] [facility] sumatriptan 2018- Yes Univer s 100 mg 1-24 ity of tablet 00:00: [place] [facility] sumatriptan 2018-08 Yes Univer s 100 mg 1-24 ity of tablet 00:00: [place] [facility] sumatriptan 2018- Yes Univer s 100 mg 1-24 ity of tablet 00:00: [place] [facility] sumatriptan 2018-08 Yes Univer s 100 mg 1-24 ity of tablet 00:00: [place] [facility] sumatriptan 2018- Yes Univer s 100 mg 1-24 ity of tablet 00:00: [place] [facility] sumatriptan 2018- Yes Univer s 100 mg 1-24 ity of tablet 00:00: [place] [facility] sumatriptan 2019- Yes Univer s 100 mg 1-24 ity of tablet 00:00: [place] [facility] sumatriptan 2018- Yes Univer s 100 mg 1-24 ity of tablet 00:00: [place] [facility] sumatriptan 2019- Yes Univer s 100 mg 1-24 ity of tablet 00:00: [place] [facility] sumatriptan 2018- Yes Univer s 100 mg 1-24 ity of tablet 00:00: [place] [facility] sumatriptan 2019- Yes Univer s 100 mg 1-24 ity of tablet 00:00: [place] [facility] albuterol Yes [id number] 2.5mg Inhale 3 [facility] 2.5 mg /3 8-14 mL every 4 ity of mL (0.083 00:00: (four) [place] %) 00 hours as Medical nebulizer needed for Bran ch solution Wheezing or Shortness of Breath. albuterol Yes [id number] 2.5mg Inhale 3 [facility] 2.5 mg /3 8-14 mL every 4 ity of mL (0.083 00:00: (four) [place] %) 00 hours as Medical nebulizer needed for Bran ch solution Wheezing or Shortness of Breath. albuterol 2019-0 Yes [id number] 2.5mg Inhale 3 [facility] 2.5 mg /3 8-14 mL every 4 ity of mL (0.083 00:00: (four) [place] %) 00 hours as Medical nebulizer needed for Bran ch solution Wheezing or Shortness of Breath. albuterol 2019-0 Yes [id number] 2.5mg Inhale 3 [facility] 2.5 mg /3 8-14 mL every 4 ity of mL (0.083 00:00: (four) [place] %) 00 hours as Medical nebulizer needed for Bran ch solution Wheezing or Shortness of Breath. albuterol 2019-0 Yes [id number] 2.5mg Inhale 3 [facility] 2.5 mg /3 8-14 mL every 4 ity of mL (0.083 00:00: ([facility]) [place] %) 00 hours as Medical nebulizer needed for Bran ch solution Wheezing or Shortness of Breath. albuterol 2019-0 Yes [id number] 2.5mg Inhale 3 Univers 2.5 mg /3 8-14 mL every 4 ity of mL (0.083 00:00: (four) [place] %) 00 hours as Medical nebulizer needed for Bran ch solution Wheezing or Shortness of Breath. albuterol 2019-0 Yes [id number] 2.5mg Inhale 3 [facility] 2.5 mg /3 8-14 mL every 4 ity of mL (0.083 00:00: (four) [place] %) 00 hours as Medical nebulizer needed for Bran ch solution Wheezing or Shortness of Breath. albuterol 2019-0 Yes [id number] 2.5mg Inhale 3 [facility] 2.5 mg /3 8-14 mL every 4 ity of mL (0.083 00:00: (four) [place] %) 00 hours as Medical nebulizer needed for Bran ch solution Wheezing or Shortness of Breath. albuterol 2019-0 Yes [id number] 2.5mg Inhale 3 [facility] 2.5 mg /3 8-14 mL every 4 ity of mL (0.083 00:00: (four) [place] %) 00 hours as Medical nebulizer needed for Bran ch solution Wheezing or Shortness of Breath. albuterol 2019-0 Yes [id number] 2.5mg Inhale 3 [facility] 2.5 mg /3 8-14 mL every 4 ity of mL (0.083 00:00: (four) [place] %) 00 hours as Medical nebulizer needed for Bran ch solution Wheezing or Shortness of Breath. albuterol 2019-0 Yes [id number] 2.5mg Inhale 3 [facility] 2.5 mg /3 8-14 mL every 4 ity of mL (0.083 00:00: (four) [place] %) 00 hours as Medical nebulizer needed for Bran ch solution Wheezing or Shortness of Breath. albuterol 2019-0 Yes [id number] 2.5mg Inhale 3 [facility] 2.5 mg /3 8-14 mL every 4 ity of mL (0.083 00:00: (four) [place] %) 00 hours as Medical nebulizer needed for Bran ch solution Wheezing or Shortness of Breath. albuterol 2019-0 Yes [id number] 2.5mg Inhale 3 [facility] 2.5 mg /3 8-14 mL every 4 ity of mL (0.083 00:00: (four) [place] %) 00 hours as Medical nebulizer needed for Bran ch solution Wheezing or Shortness of Breath. albuterol 2019-0 Yes [id number] 2.5mg Inhale 3 [facility] 2.5 mg /3 8-14 mL every 4 ity of mL (0.083 00:00: (four) [place] %) 00 hours as Medical nebulizer needed for Bran ch solution Wheezing or Shortness of Breath. albuterol 2019-0 Yes [id number] 2.5mg Inhale 3 [facility] 2.5 mg /3 8-14 mL every 4 ity of mL (0.083 00:00: (four) [place] %) 00 hours as Medical nebulizer needed for Bran ch solution Wheezing or Shortness of Breath. albuterol 2019-0 Yes [id number] 2.5mg Inhale 3 [facility] 2.5 mg /3 8-14 mL every 4 ity of mL (0.083 00:00: (four) [place] %) 00 hours as Medical nebulizer needed for Bran ch solution Wheezing or Shortness of Breath. albuterol 2019-0 Yes [id number] 2.5mg Inhale 3 [facility] 2.5 mg /3 8-14 mL every 4 ity of mL (0.083 00:00: (four) [place] %) 00 hours as Medical nebulizer needed for Bran ch solution Wheezing or Shortness of Breath. albuterol 2019-0 Yes [id number] 2.5mg Inhale 3 [facility] 2.5 mg /3 8-14 mL every 4 ity of mL (0.083 00:00: (four) [place] %) 00 hours as Medical nebulizer needed for Bran ch solution Wheezing or Shortness of Breath. albuterol 2019-0 Yes [id number] 2.5mg Inhale 3 [facility] 2.5 mg /3 8-14 mL every 4 ity of mL (0.083 00:00: (four) [place] %) 00 hours as Medical nebulizer needed for Bran ch solution Wheezing or Shortness of Breath. albuterol 2019-0 Yes [id number] 2.5mg Inhale 3 [facility] 2.5 mg /3 8-14 mL every 4 ity of mL (0.083 00:00: (four) [place] %) 00 hours as Medical nebulizer needed for Bran ch solution Wheezing or Shortness of Breath. albuterol 2019-0 Yes [id number] 2.5mg Inhale 3 [facility] 2.5 mg /3 8-14 mL every 4 ity of mL (0.083 00:00: (four) [place] %) 00 hours as Medical nebulizer needed for Bran ch solution Wheezing or Shortness of Breath. albuterol 2019-0 Yes [id number] 2.5mg Inhale 3 [facility] 2.5 mg /3 8-14 mL every 4 ity of mL (0.083 00:00: (four) [place] %) 00 hours as Medical nebulizer needed for Bran ch solution Wheezing or Shortness of Breath. albuterol 2019-0 Yes [id number] 2.5mg Inhale 3 [facility] 2.5 mg /3 8-14 mL every 4 ity of mL (0.083 00:00: (four) [place] %) 00 hours as Medical nebulizer needed for Bran ch solution Wheezing or Shortness of Breath. albuterol 2019-0 Yes [id number] 2.5mg Inhale 3 [facility] 2.5 mg /3 8-14 mL every 4 ity of mL (0.083 00:00: (four) [place] %) 00 hours as Medical nebulizer needed for Bran ch solution Wheezing or Shortness of Breath. albuterol 2019-0 Yes [id number] 2.5mg Inhale 3 [facility] 2.5 mg /3 8-14 mL every 4 ity of mL (0.083 00:00: (four) [place] %) 00 hours as Medical nebulizer needed for Bran ch solution Wheezing or Shortness of Breath. albuterol 2019-0 Yes [id number] 2.5mg Inhale 3 [facility] 2.5 mg /3 8-14 mL every 4 ity of mL (0.083 00:00: (four) [place] %) 00 hours as Medical nebulizer needed for Bran ch solution Wheezing or Shortness of Breath. albuterol 2019-0 Yes [id number] 2.5mg Inhale 3 [facility] 2.5 mg /3 8-14 mL every 4 ity of mL (0.083 00:00: (four) [place] %) 00 hours as Medical nebulizer needed for Bran ch solution Wheezing or Shortness of Breath. albuterol 2019-0 Yes [id number] 2.5mg Inhale 3 [facility] 2.5 mg /3 8-14 mL every 4 ity of mL (0.083 00:00: (four) [place] %) 00 hours as Medical nebulizer needed for Bran ch solution Wheezing or Shortness of Breath. albuterol 2019-0 Yes [id number] 2.5mg Inhale 3 [facility] 2.5 mg /3 8-14 mL every 4 ity of mL (0.083 00:00: (four) [place] %) 00 hours as Medical nebulizer needed for Bran ch solution Wheezing or Shortness of Breath. albuterol 2019-0 Yes [id number] 2.5mg Inhale 3 [facility] 2.5 mg /3 8-14 mL every 4 ity of mL (0.083 00:00: (four) [place] %) 00 hours as Medical nebulizer needed for Bran ch solution Wheezing or Shortness of Breath. albuterol 2019-0 Yes [id number] 2.5mg Inhale 3 [facility] 2.5 mg /3 8-14 mL every 4 ity of mL (0.083 00:00: (four) [place] %) 00 hours as Medical nebulizer needed for Bran ch solution Wheezing or Shortness of Breath. albuterol 2019-0 Yes [id number] 2.5mg Inhale 3 [facility] 2.5 mg /3 8-14 mL every 4 ity of mL (0.083 00:00: (four) [place] %) 00 hours as Medical nebulizer needed for Bran ch solution Wheezing or Shortness of Breath. albuterol 2019-0 Yes [id number] 2.5mg Inhale 3 [facility] 2.5 mg /3 8-14 mL every 4 ity of mL (0.083 00:00: (four) [place] %) 00 hours as Medical nebulizer needed for Bran ch solution Wheezing or Shortness of Breath. albuterol 2019-0 Yes [id number] 2.5mg Inhale 3 [facility] 2.5 mg /3 8-14 mL every 4 ity of mL (0.083 00:00: (four) [place] %) 00 hours as Medical nebulizer needed for Bran ch solution Wheezing or Shortness of Breath. albuterol 2019-0 Yes [id number] 2.5mg Inhale 3 [facility] 2.5 mg /3 8-14 mL every 4 ity of mL (0.083 00:00: (four) [place] %) 00 hours as Medical nebulizer needed for Bran ch solution Wheezing or Shortness of Breath. albuterol 2019-0 Yes [id number] 2.5mg Inhale 3 [facility] 2.5 mg /3 8-14 mL every 4 ity of mL (0.083 00:00: (four) [place] %) 00 hours as Medical nebulizer needed for Bran ch solution Wheezing or Shortness of Breath. albuterol 2019-0 Yes [id number] 2.5mg Inhale 3 [facility] 2.5 mg /3 8-14 mL every 4 ity of mL (0.083 00:00: (four) [place] %) 00 hours as Medical nebulizer needed for Bran ch solution Wheezing or Shortness of Breath. albuterol 2019-0 Yes [id number] 2.5mg Inhale 3 [facility] 2.5 mg /3 8-14 mL every 4 ity of mL (0.083 00:00: (four) [place] %) 00 hours as Medical nebulizer needed for Bran ch solution Wheezing or Shortness of Breath. albuterol 2019-0 Yes [id number] 2.5mg Inhale 3 [facility] 2.5 mg /3 8-14 mL every 4 ity of mL (0.083 00:00: (four) [place] %) 00 hours as Medical nebulizer needed for Bran ch solution Wheezing or Shortness of Breath. albuterol 2019-0 Yes [id number] 2.5mg Inhale 3 [facility] 2.5 mg /3 8-14 mL every 4 ity of mL (0.083 00:00: (four) [place] %) 00 hours as Medical nebulizer needed for Bran ch solution Wheezing or Shortness of Breath. albuterol 2019-0 Yes [id number] 2.5mg Inhale 3 [facility] 2.5 mg /3 8-14 mL every 4 ity of mL (0.083 00:00: (four) [place] %) 00 hours as Medical nebulizer needed for Bran ch solution Wheezing or Shortness of Breath. albuterol 2018-0 Yes [id number] 2.5mg Inhale 3 [facility] 2.5 mg /3 8-14 mL every 4 ity of mL (0.083 00:00: (four) [place] %) 00 hours as Medical nebulizer needed for Bran ch solution Wheezing or Shortness of Breath. albuterol 2019-0 Yes [id number] 2.5mg Inhale 3 [facility] 2.5 mg /3 8-14 mL every 4 ity of mL (0.083 00:00: (four) [place] %) 00 hours as Medical nebulizer needed for Bran ch solution Wheezing or Shortness of Breath. albuterol 2019-0 Yes [id number] 2.5mg Inhale 3 [facility] 2.5 mg /3 8-14 mL every 4 ity of mL (0.083 00:00: (four) [place] %) 00 hours as Medical nebulizer needed for Bran ch solution Wheezing or Shortness of Breath. albuterol 2019-0 Yes [id number] 2.5mg Inhale 3 [facility] 2.5 mg /3 8-14 mL every 4 ity of mL (0.083 00:00: (four) [place] %) 00 hours as Medical nebulizer needed for Bran ch solution Wheezing or Shortness of Breath. albuterol 2019-0 Yes [id number] 2.5mg Inhale 3 [facility] 2.5 mg /3 8-14 mL every 4 ity of mL (0.083 00:00: (four) [place] %) 00 hours as Medical nebulizer needed for Bran ch solution Wheezing or Shortness of Breath. albuterol 2019-0 Yes [id number] 2.5mg Inhale 3 [facility] 2.5 mg /3 8-14 mL every 4 ity of mL (0.083 00:00: (four) [place] %) 00 hours as Medical nebulizer needed for Bran ch solution Wheezing or Shortness of Breath. albuterol 2019-0 Yes [id number] 2.5mg Inhale 3 [facility] 2.5 mg /3 8-14 mL every 4 ity of mL (0.083 00:00: (four) [place] %) 00 hours as Medical nebulizer needed for Bran ch solution Wheezing or Shortness of Breath. albuterol 2019-0 Yes [id number] 2.5mg Inhale 3 [facility] 2.5 mg /3 8-14 mL every 4 ity of mL (0.083 00:00: (four) [place] %) 00 hours as Medical nebulizer needed for Bran ch solution Wheezing or Shortness of Breath. albuterol 2019-0 Yes [id number] 2.5mg Inhale 3 [facility] 2.5 mg /3 8-14 mL every 4 ity of mL (0.083 00:00: (four) [place] %) 00 hours as Medical nebulizer needed for Bran ch solution Wheezing or Shortness of Breath. albuterol 2019-0 Yes [id number] 2.5mg Inhale 3 [facility] 2.5 mg /3 8-14 mL every 4 ity of mL (0.083 00:00: (four) [place] %) 00 hours as Medical nebulizer needed for Bran ch solution Wheezing or Shortness of Breath. albuterol 2019-0 Yes [id number] 2.5mg Inhale 3 [facility] 2.5 mg /3 8-14 mL every 4 ity of mL (0.083 00:00: (four) [place] %) 00 hours as Medical nebulizer needed for Bran ch solution Wheezing or Shortness of Breath. albuterol 2019-0 Yes [id number] 2.5mg Inhale 3 [facility] 2.5 mg /3 8-14 mL every 4 ity of mL (0.083 00:00: (four) [place] %) 00 hours as Medical nebulizer needed for Bran ch solution Wheezing or Shortness of Breath. albuterol 2019- Yes [id number] 2.5mg Inhale 3 [facility] 2.5 mg /3 8-14 mL every 4 ity of mL (0.083 00:00: (four) [place] %) 00 hours as Medical nebulizer needed for Bran ch solution Wheezing or Shortness of Breath. albuterol 2019- Yes [id number] 2.5mg Inhale 3 [facility] 2.5 mg /3 8-14 mL every 4 ity of mL (0.083 00:00: (four) [place] %) 00 hours as Medical nebulizer needed for Bran ch solution Wheezing or Shortness of Breath. albuterol Yes [id number] 2.5mg Inhale 3 [facility] 2.5 mg /3 8-14 mL every 4 ity of mL (0.083 00:00: (four) [place] %) 00 hours as Medical nebulizer needed for Bran ch solution Wheezing or Shortness of Breath. albuterol 2022- No [id number] 2.5mg Inhale 3 [facility] 2.5 mg /3 8-14 06-13 mL every 4 ity of mL (0.083 00:00: 00:00 (four) [place] %) 00 :00 hours as Medical nebulizer needed for Bran ch solution Wheezing or Shortness of Breath. albuterol 2018-2022- No [id number] 2.5mg Inhale 3 [facility] 2.5 mg /3 8-14 06-13 mL every 4 ity of mL (0.083 00:00: 00:00 (four) [place] %) 00 :00 hours as Medical nebulizer needed for Bran ch solution Wheezing or Shortness of Breath. albuterol 2018-0 2023- No [id number] 2.5mg Inhale 3 [facility] 2.5 mg /3 8-14 06-13 mL every 4 ity of mL (0.083 00:00: 00:00 (four) [place] %) 00 :00 hours as Medical nebulizer needed for Bran ch solution Wheezing or Shortness of Breath. albuterol 2018-3- No [id number] 2.5mg Inhale 3 [facility] 2.5 mg /3 8-14 06-13 mL every 4 ity of mL (0.083 00:00: 00:00 (four) [place] %) 00 :00 hours as Medical nebulizer needed for Bran ch solution Wheezing or Shortness of Breath. albuterol 2018-2022- No [id number] 2.5mg Inhale 3 [facility] 2.5 mg /3 8-14 06-13 mL every 4 ity of mL (0.083 00:00: 00:00 (four) [place] %) 00 :00 hours as Medical nebulizer needed for Bran ch solution Wheezing or Shortness of Breath. albuterol 2018-2022- No [id number] 2.5mg Inhale 3 [facility] 2.5 mg /3 8-14 06-13 mL every 4 ity of mL (0.083 00:00: 00:00 (four) [place] %) 00 :00 hours as Medical nebulizer needed for Bran ch solution Wheezing or Shortness of Breath. cyclobenzap 2019-0 Yes 10mg Take 10 mg [facility] rine 10 mg 4-09 by mouth ity o f tablet 00:00: at [place] [address] bedtime. [facility] gabapentin 2019-0 Yes 300mg Take 300 Un gray 300 mg 4-09 mg by ity of capsule 00:00: mouth at [place] [address] bedtime. [facility] cyclobenzap 2019-0 Yes 10mg Take 10 mg [facility] rine 10 mg 4-09 by mouth ity o f tablet 00:00: at [place] [address] bedtime. [facility] gabapentin 2019-0 Yes 300mg Take 300 Un gray 300 mg 4-09 mg by ity of capsule 00:00: mouth at [place] [address] bedtime. [facility] cyclobenzap 2019-0 Yes 10mg Take 10 mg [facility] rine 10 mg 4-09 by mouth ity o f tablet 00:00: at [place] [address] bedtime. [facility] gabapentin 2019-0 Yes 300mg Take 300 Un gray 300 mg 4-09 mg by ity of capsule 00:00: mouth at [place] [address] bedtime. [facility] cyclobenzap 2019-0 Yes 10mg Take 10 mg [facility] rine 10 mg 4-09 by mouth ity o f tablet 00:00: at [place] [address] bedtime. [facility] gabapentin 2019-0 Yes 300mg Take 300 Un gray 300 mg 4-09 mg by ity of capsule 00:00: mouth at [place] [address] bedtime. [facility] cyclobenzap 2019-0 Yes 10mg Take 10 mg [facility] rine 10 mg 4-09 by mouth ity o f tablet 00:00: at [place] [address] bedtime. [facility] gabapentin 2019-0 Yes 300mg Take 300 Un gray 300 mg 4-09 mg by ity of capsule 00:00: mouth at [place] [address] bedtime. [facility] cyclobenzap 2019-0 Yes 10mg Take 10 mg [facility] rine 10 mg 4-09 by mouth ity o f tablet 00:00: at [place] [address] bedtime. [facility] gabapentin 2019-0 Yes 300mg Take 300 Un gray 300 mg 4-09 mg by ity of capsule 00:00: mouth at [place] [address] bedtime. [facility] cyclobenzap 2019-0 Yes 10mg Take 10 mg [facility] rine 10 mg 4-09 by mouth ity o f tablet 00:00: at [place] [address] bedtime. [facility] gabapentin 2019-0 Yes 300mg Take 300 Un gray 300 mg 4-09 mg by ity of capsule 00:00: mouth at [place] [address] bedtime. [facility] cyclobenzap 2019-0 Yes 10mg Take 10 mg [facility] rine 10 mg 4-09 by mouth ity o f tablet 00:00: at [place] [address] bedtime. [facility] gabapentin 2019-0 Yes 300mg Take 300 Un gray 300 mg 4-09 mg by ity of capsule 00:00: mouth at [place] [address] bedtime. [facility] cyclobenzap 2019-0 Yes 10mg Take 10 mg [facility] rine 10 mg 4-09 by mouth ity o f tablet 00:00: at [place] [address] bedtime. [facility] gabapentin 2019-0 Yes 300mg Take 300 Un gray 300 mg 4-09 mg by ity of capsule 00:00: mouth at [place] [address] bedtime. [facility] cyclobenzap 2019-0 Yes 10mg Take 10 mg [facility] rine 10 mg 4-09 by mouth ity o f tablet 00:00: at [place] [address] bedtime. [facility] gabapentin 2019-0 Yes 300mg Take 300 Un gray 300 mg 4-09 mg by ity of capsule 00:00: mouth at [place] [address] bedtime. [facility] cyclobenzap 2019-0 Yes 10mg Take 10 mg [facility] rine 10 mg 4-09 by mouth ity o f tablet 00:00: at [place] [address] bedtime. [facility] gabapentin 2019-0 Yes 300mg Take 300 Un gray 300 mg 4-09 mg by ity of capsule 00:00: mouth at [place] [address] bedtime. [facility] cyclobenzap 2019-0 Yes 10mg Take 10 mg [facility] rine 10 mg 4-09 by mouth ity o f tablet 00:00: at [place] [address] bedtime. [facility] gabapentin 2019-0 Yes 300mg Take 300 Un gray 300 mg 4-09 mg by ity of capsule 00:00: mouth at [place] [address] bedtime. [facility] cyclobenzap 2019-0 Yes 10mg Take 10 mg [facility] rine 10 mg 4-09 by mouth ity o f tablet 00:00: at [place] [address] bedtime. [facility] gabapentin 2019-0 Yes 300mg Take 300 Un gray 300 mg 4-09 mg by ity of capsule 00:00: mouth at [place] [address] bedtime. [facility] cyclobenzap 2019-0 Yes 10mg Take 10 mg [facility] rine 10 mg 4-09 by mouth ity o f tablet 00:00: at [place] [address] bedtime. [facility] gabapentin 2019-0 Yes 300mg Take 300 Un gray 300 mg 4-09 mg by ity of capsule 00:00: mouth at [place] [address] bedtime. [facility] cyclobenzap 2019-0 Yes 10mg Take 10 mg [facility] rine 10 mg 4-09 by mouth ity o f tablet 00:00: at [place] [address] bedtime. [facility] gabapentin 2019-0 Yes 300mg Take 300 Un gray 300 mg 4-09 mg by ity of capsule 00:00: mouth at [place] [address] bedtime. [facility] cyclobenzap 2019-0 Yes 10mg Take 10 mg [facility] rine 10 mg 4-09 by mouth ity o f tablet 00:00: at [place] [address] bedtime. [facility] gabapentin 2019-0 Yes 300mg Take 300 Un gray 300 mg 4-09 mg by ity of capsule 00:00: mouth at [place] [address] bedtime. [facility] cyclobenzap 2019-0 Yes 10mg Take 10 mg [facility] rine 10 mg 4-09 by mouth ity o f tablet 00:00: at [place] [address] bedtime. [facility] gabapentin 2019-0 Yes 300mg Take 300 Un gray 300 mg 4-09 mg by ity of capsule 00:00: mouth at [place] [address] bedtime. [facility] cyclobenzap 2019-0 Yes 10mg Take 10 mg [facility] rine 10 mg 4-09 by mouth ity o f tablet 00:00: at [place] [address] bedtime. [facility] gabapentin 2019-0 Yes 300mg Take 300 Un gray 300 mg 4-09 mg by ity of capsule 00:00: mouth at [place] [address] bedtime. [facility] cyclobenzap 2019-0 Yes 10mg Take 10 mg [facility] rine 10 mg 4-09 by mouth ity o f tablet 00:00: at [place] [address] bedtime. [facility] gabapentin 2019-0 Yes 300mg Take 300 Un gray 300 mg 4-09 mg by ity of capsule 00:00: mouth at [place] [address] bedtime. [facility] cyclobenzap 2019-0 Yes 10mg Take 10 mg [facility] rine 10 mg 4-09 by mouth ity o f tablet 00:00: at [place] [address] bedtime. [facility] gabapentin 2019-0 Yes 300mg Take 300 Un gray 300 mg 4-09 mg by ity of capsule 00:00: mouth at [place] [address] bedtime. [facility] cyclobenzap 2019-0 Yes 10mg Take 10 mg [facility] rine 10 mg 4-09 by mouth ity o f tablet 00:00: at [place] [address] bedtime. [facility] gabapentin 2019-0 Yes 300mg Take 300 Un gray 300 mg 4-09 mg by ity of capsule 00:00: mouth at [place] [address] bedtime. [facility] cyclobenzap 2019-0 Yes 10mg Take 10 mg [facility] rine 10 mg 4-09 by mouth ity o f tablet 00:00: at [place] [address] bedtime. [facility] gabapentin 2019-0 Yes 300mg Take 300 Un gray 300 mg 4-09 mg by ity of capsule 00:00: mouth at [place] [address] bedtime. [facility] cyclobenzap 2019-0 Yes 10mg Take 10 mg [facility] rine 10 mg 4-09 by mouth ity o f tablet 00:00: at [place] [address] bedtime. [facility] gabapentin 2019-0 Yes 300mg Take 300 Un gray 300 mg 4-09 mg by ity of capsule 00:00: mouth at [place] [address] bedtime. [facility] cyclobenzap 2019-0 Yes 10mg Take 10 mg [facility] rine 10 mg 4-09 by mouth ity o f tablet 00:00: at [place] [address] bedtime. [facility] gabapentin 2019-0 Yes 300mg Take 300 Un gray 300 mg 4-09 mg by ity of capsule 00:00: mouth at [place] [address] bedtime. [facility] cyclobenzap 2019-0 Yes 10mg Take 10 mg [facility] rine 10 mg 4-09 by mouth ity o f tablet 00:00: at [place] [address] bedtime. [facility] gabapentin 2019-0 Yes 300mg Take 300 Un gray 300 mg 4-09 mg by ity of capsule 00:00: mouth at [place] [address] bedtime. [facility] cyclobenzap 2019-0 Yes 10mg Take 10 mg [facility] rine 10 mg 4-09 by mouth ity o f tablet 00:00: at [place] [address] bedtime. [facility] gabapentin 2019-0 Yes 300mg Take 300 Un gray 300 mg 4-09 mg by ity of capsule 00:00: mouth at [place] [address] bedtime. [facility] cyclobenzap 2019-0 Yes 10mg Take 10 mg [facility] rine 10 mg 4-09 by mouth ity o f tablet 00:00: at [place] [address] bedtime. [facility] gabapentin 2019-0 Yes 300mg Take 300 Un gray 300 mg 4-09 mg by ity of capsule 00:00: mouth at [place] [address] bedtime. [facility] cyclobenzap 2019-0 Yes 10mg Take 10 mg [facility] rine 10 mg 4-09 by mouth ity o f tablet 00:00: at [place] [address] bedtime. [facility] gabapentin 2019-0 Yes 300mg Take 300 Un gray 300 mg 4-09 mg by ity of capsule 00:00: mouth at [place] [address] bedtime. [facility] cyclobenzap 2019-0 Yes 10mg Take 10 mg [facility] rine 10 mg 4-09 by mouth ity o f tablet 00:00: at [place] [address] bedtime. [facility] gabapentin 2019-0 Yes 300mg Take 300 Un gray 300 mg 4-09 mg by ity of capsule 00:00: mouth at [place] [address] bedtime. [facility] cyclobenzap 2019-0 Yes 10mg Take 10 mg [facility] rine 10 mg 4-09 by mouth ity o f tablet 00:00: at [place] [address] bedtime. [facility] gabapentin 2019-0 Yes 300mg Take 300 Un gray 300 mg 4-09 mg by ity of capsule 00:00: mouth at [place] [address] bedtime. [facility] cyclobenzap 2019-0 Yes 10mg Take 10 mg [facility] rine 10 mg 4-09 by mouth ity o f tablet 00:00: at [place] [address] bedtime. [facility] gabapentin 2019-0 Yes 300mg Take 300 Un gray 300 mg 4-09 mg by ity of capsule 00:00: mouth at [place] [address] bedtime. [facility] cyclobenzap 2019-0 Yes 10mg Take 10 mg [facility] rine 10 mg 4-09 by mouth ity o f tablet 00:00: at [place] [address] bedtime. [facility] gabapentin 2019-0 Yes 300mg Take 300 Un gray 300 mg 4-09 mg by ity of capsule 00:00: mouth at [place] [address] bedtime. [facility] cyclobenzap 2019-0 Yes 10mg Take 10 mg [facility] rine 10 mg 4-09 by mouth ity o f tablet 00:00: at [place] [address] bedtime. [facility] gabapentin 2019-0 Yes 300mg Take 300 Un gray 300 mg 4-09 mg by ity of capsule 00:00: mouth at [place] [address] bedtime. [facility] cyclobenzap 2019-0 Yes 10mg Take 10 mg [facility] rine 10 mg 4-09 by mouth ity o f tablet 00:00: at [place] [address] bedtime. [facility] gabapentin 2019-0 Yes 300mg Take 300 Un gray 300 mg 4-09 mg by ity of capsule 00:00: mouth at [place] [address] bedtime. [facility] cyclobenzap 2019-0 Yes 10mg Take 10 mg [facility] rine 10 mg 4-09 by mouth ity o f tablet 00:00: at [place] [address] bedtime. [facility] gabapentin 2019-0 Yes 300mg Take 300 Un gray 300 mg 4-09 mg by ity of capsule 00:00: mouth at [place] [address] bedtime. [facility] cyclobenzap 2019-0 Yes 10mg Take 10 mg [facility] rine 10 mg 4-09 by mouth ity o f tablet 00:00: at [place] [address] bedtime. [facility] gabapentin 2019-0 Yes 300mg Take 300 Un gray 300 mg 4-09 mg by ity of capsule 00:00: mouth at [place] [address] bedtime. [facility] cyclobenzap 2019-0 Yes 10mg Take 10 mg [facility] rine 10 mg 4-09 by mouth ity o f tablet 00:00: at [place] [address] bedtime. [facility] gabapentin 2019-0 Yes 300mg Take 300 Un gray 300 mg 4-09 mg by ity of capsule 00:00: mouth at [place] [address] bedtime. [facility] cyclobenzap 2019-0 Yes 10mg Take 10 mg [facility] rine 10 mg 4-09 by mouth ity o f tablet 00:00: at [place] [address] bedtime. [facility] gabapentin 2019-0 Yes 300mg Take 300 Un gray 300 mg 4-09 mg by ity of capsule 00:00: mouth at [place] [address] bedtime. [facility] cyclobenzap 2019-0 Yes 10mg Take 10 mg [facility] rine 10 mg 4-09 by mouth ity o f tablet 00:00: at [place] [address] bedtime. [facility] gabapentin 2019-0 Yes 300mg Take 300 Un gray 300 mg 4-09 mg by ity of capsule 00:00: mouth at [place] [address] bedtime. [facility] cyclobenzap 2019-0 Yes 10mg Take 10 mg [facility] rine 10 mg 4-09 by mouth ity o f tablet 00:00: at [place] [address] bedtime. [facility] gabapentin 2019-0 Yes 300mg Take 300 Un gray 300 mg 4-09 mg by ity of capsule 00:00: mouth at [place] [address] bedtime. [facility] cyclobenzap 2019-0 Yes 10mg Take 10 mg [facility] rine 10 mg 4-09 by mouth ity o f tablet 00:00: at [place] [address] bedtime. [facility] gabapentin 2019-0 Yes 300mg Take 300 Un gray 300 mg 4-09 mg by ity of capsule 00:00: mouth at [place] [address] bedtime. [facility] cyclobenzap 2019-0 Yes 10mg Take 10 mg [facility] rine 10 mg 4-09 by mouth ity o f tablet 00:00: at [place] [address] bedtime. [facility] gabapentin 2019-0 Yes 300mg Take 300 Un gray 300 mg 4-09 mg by ity of capsule 00:00: mouth at [place] [address] bedtime. [facility] cyclobenzap 2019-0 Yes 10mg Take 10 mg [facility] rine 10 mg 4-09 by mouth ity o f tablet 00:00: at [place] [address] bedtime. [facility] gabapentin 2019-0 Yes 300mg Take 300 Un gray 300 mg 4-09 mg by ity of capsule 00:00: mouth at [place] [address] bedtime. [facility] cyclobenzap 2019-0 Yes 10mg Take 10 mg [facility] rine 10 mg 4-09 by mouth ity o f tablet 00:00: at [place] [address] bedtime. [facility] gabapentin 2019-0 Yes 300mg Take 300 Un gray 300 mg 4-09 mg by ity of capsule 00:00: mouth at [place] [address] bedtime. [facility] cyclobenzap 2019-0 Yes 10mg Take 10 mg [facility] rine 10 mg 4-09 by mouth ity o f tablet 00:00: at [place] [address] bedtime. [facility] gabapentin 2019-0 Yes 300mg Take 300 Un gray 300 mg 4-09 mg by ity of capsule 00:00: mouth at [place] [address] bedtime. [facility] cyclobenzap 2019-0 Yes 10mg Take 10 mg [facility] rine 10 mg 4-09 by mouth ity o f tablet 00:00: at [place] [address] bedtime. [facility] gabapentin 2019-0 Yes 300mg Take 300 Un gray 300 mg 4-09 mg by ity of capsule 00:00: mouth at [place] [address] bedtime. [facility] cyclobenzap 2019-0 Yes 10mg Take 10 mg [facility] rine 10 mg 4-09 by mouth ity o f tablet 00:00: at [place] [address] bedtime. [facility] gabapentin 2019-0 Yes 300mg Take 300 Un gray 300 mg 4-09 mg by ity of capsule 00:00: mouth at [place] [address] bedtime. [facility] cyclobenzap 2019-0 Yes 10mg Take 10 mg [facility] rine 10 mg 4-09 by mouth ity o f tablet 00:00: at [place] [address] bedtime. [facility] gabapentin 2019-0 Yes 300mg Take 300 Un gary 300 mg 4-09 mg by ity of capsule 00:00: mouth at [place] [address] bedtime. [facility] cyclobenzap 2019-0 Yes 10mg Take 10 mg [facility] rine 10 mg 4-09 by mouth ity o f tablet 00:00: at [place] [address] bedtime. [facility] gabapentin 2019-0 Yes 300mg Take 300 Un gray 300 mg 4-09 mg by ity of capsule 00:00: mouth at [place] [address] bedtime. [facility] cyclobenzap 2019-0 Yes 10mg Take 10 mg [facility] rine 10 mg 4-09 by mouth ity o f tablet 00:00: at [place] [address] bedtime. [facility] gabapentin 2019-0 Yes 300mg Take 300 Un gray 300 mg 4-09 mg by ity of capsule 00:00: mouth at [place] [address] bedtime. [facility] cyclobenzap 2019-0 Yes 10mg Take 10 mg [facility] rine 10 mg 4-09 by mouth ity o f tablet 00:00: at [place] [address] bedtime. [facility] gabapentin 2019-0 Yes 300mg Take 300 Un gray 300 mg 4-09 mg by ity of capsule 00:00: mouth at [place] [address] bedtime. [facility] cyclobenzap 2019-0 Yes 10mg Take 10 mg [facility] rine 10 mg 4-09 by mouth ity o f tablet 00:00: at [place] [address] bedtime. [facility] gabapentin 2019-0 Yes 300mg Take 300 Un gray 300 mg 4-09 mg by ity of capsule 00:00: mouth at [place] [address] bedtime. [facility] cyclobenzap 2019-0 Yes 10mg Take 10 mg [facility] rine 10 mg 4-09 by mouth ity o f tablet 00:00: at [place] [address] bedtime. [facility] gabapentin 2019-0 Yes 300mg Take 300 Un gray 300 mg 4-09 mg by ity of capsule 00:00: mouth at [place] [address] bedtime. [facility] cyclobenzap 2019-0 Yes 10mg Take 10 mg [facility] rine 10 mg 4-09 by mouth ity o f tablet 00:00: at [place] [address] bedtime. [facility] gabapentin 2019-0 Yes 300mg Take 300 Un gray 300 mg 4-09 mg by ity of capsule 00:00: mouth at [place] [address] bedtime. [facility] cyclobenzap 2019-0 Yes 10mg Take 10 mg [facility] rine 10 mg 4-09 by mouth ity o f tablet 00:00: at [place] [address] bedtime. [facility] gabapentin 2019-0 Yes 300mg Take 300 Un gray 300 mg 4-09 mg by ity of capsule 00:00: mouth at [place] [address] bedtime. [facility] cyclobenzap 2019-0 Yes 10mg Take 10 mg [facility] rine 10 mg 4-09 by mouth ity o f tablet 00:00: at [place] [address] bedtime. [facility] gabapentin 2019-0 Yes 300mg Take 300 Un gray 300 mg 4-09 mg by ity of capsule 00:00: mouth at [place] [address] bedtime. [facility] cyclobenzap 2019-0 Yes 10mg Take 1 [facility] ers rine 10 mg 4-09 tablet by ity of tablet 00:00: mouth at [place] [address] bedtime. [facility] gabapentin 2019-0 Yes 300mg Take 1 [facility] ers 300 mg 4-09 capsule by ity of capsule 00:00: mouth at [place] [address] bedtime. [facility] cyclobenzap 2019-0 Yes 10mg Take 1 [facility] ers rine 10 mg 4-09 tablet by ity of tablet 00:00: mouth at [place] [address] bedtime. [facility] gabapentin 2019-0 Yes 300mg Take 1 [facility] ers 300 mg 4-09 capsule by ity of capsule 00:00: mouth at [place] [address] bedtime. [facility] cyclobenzap 2019-0 Yes 10mg Take 1 [facility] ers rine 10 mg 4-09 tablet by ity of tablet 00:00: mouth at [place] [address] bedtime. [facility] gabapentin 2019-0 Yes 300mg Take 1 [facility] ers 300 mg 4-09 capsule by ity of capsule 00:00: mouth at [place] [address] bedtime. [facility] cyclobenzap 2019-0 Yes 10mg Take 1 [facility] ers rine 10 mg 4-09 tablet by ity of tablet 00:00: mouth at [place] [address] bedtime. [facility] gabapentin 2019-0 Yes 300mg Take 1 [facility] ers 300 mg 4-09 capsule by ity of capsule 00:00: mouth at [place] [address] bedtime. [facility] cyclobenzap 2019-0 Yes 10mg Take 1 [facility] ers rine 10 mg 4-09 tablet by ity of tablet 00:00: mouth at [place] [address] bedtime. [facility] gabapentin 2019-0 Yes 300mg Take 1 [facility] ers 300 mg 4-09 capsule by ity of capsule 00:00: mouth at [place] [address] bedtime. [facility] cyclobenzap 2019-0 Yes 10mg Take 1 [facility] ers rine 10 mg 4-09 tablet by ity of tablet 00:00: mouth at [place] [address] bedtime. [facility] gabapentin 2019-0 Yes 300mg Take 1 [facility] ers 300 mg 4-09 capsule by ity of capsule 00:00: mouth at [place] [address] bedtime. [facility] cyclobenzap 2019-0 Yes 10mg Take 1 [facility] ers rine 10 mg 4-09 tablet by ity of tablet 00:00: mouth at [place] [address] bedtime. [facility] gabapentin 2019-0 Yes 300mg Take 1 [facility] ers 300 mg 4-09 capsule by ity of capsule 00:00: mouth at [place] [address] bedtime. [facility] Ipratropium 2018-0 No 0.5 mg, Mem oria 3-30 Route: l 14:00: NEB, Drug Derek 00 form: AERO, ONCE, Dosing Weight 73.182, kg, PRN Respirator y Protocol, Start date: 10/31/17 9:00:00 CDT Ipratropium 2018-0 No 0.5 mg, Mem oria 3-30 Route: l 14:00: NEB, Drug Derek 00 form: AERO, ONCE, Dosing Weight 73.182, kg, PRN Respirator y Protocol, Start date: 10/31/17 9:00:00 CDT Ipratropium 2018-0 No 0.5 mg, Mem oria 3-30 Route: l 14:00: NEB, Drug [place] 00 form: AERO, ONCE, Dosing Weight 73.182, kg, PRN Respirator y Protocol, Start date: 10/31/17 9:00:00 CDT Ipratropium 2018-0 No 0.5 mg, Mem oria 3-30 Route: l 14:00: NEB, Drug Derek 00 form: AERO, ONCE, Dosing Weight 73.182, kg, PRN Respirator y Protocol, Start date: 10/31/17 9:00:00 CDT Ipratropium 2018-0 No 0.5 mg, Mem oria 3-30 Route: l 14:00: NEB Drug Derek 00 form: AERO, ONCE, Dosing Weight 73.182, kg, PRN Respirator y Protocol, Start date: 10/31/17 9:00:00 CDT Ipratropium 2018-0 No 0.5 mg, Mem oria 3-30 Route: l 14:00: NEB Drug Derek 00 form: AERO, ONCE, Dosing Weight 73.182, kg, PRN Respirator y Protocol, Start date: 10/31/17 9:00:00 CDT Ipratropium 2018-0 No 0.5 mg, Mem oria 3-30 Route: l 14:00: NEB Drug Derek 00 form: AERO, ONCE, Dosing Weight 73.182, kg, PRN Respirator y Protocol, Start date: 10/31/17 9:00:00 CDT Ipratropium 2018-0 No 0.5 mg, Mem oria 3-30 Route: l 14:00: NEB Drug Derek 00 form: AERO, ONCE, Dosing Weight 73.182, kg, PRN Respirator y Protocol, Start date: 10/31/17 9:00:00 CDT Albuterol 2018-0 No 2.5 mg, 3 Mem oria 0.83 MG/ML 3-30 mL, Route: l Inhalant 13:57: NEB, Drug Herm maru Solution 00 form: AERO, ONCE, Dosing Weight 73.182, kg, Start date: 10/31/17 8:57:00 CDT, Stop date: 10/31/17 8:57:00 CDT Albuterol 2018-0 No 2.5 mg, 3 Mem oria 0.83 MG/ML 3-30 mL, Route: l Inhalant 13:57: NEB, Drug Herm maru Solution 00 form: AERO, ONCE, Dosing Weight 73.182, kg, Start date: 10/31/17 8:57:00 CDT, Stop date: 10/31/17 8:57:00 CDT Albuterol 2018-0 No 2.5 mg, 3 Mem oria 0.83 MG/ML 3-30 mL, Route: l Inhalant 13:57: NEB, Drug Herm maru Solution 00 form: AERO, ONCE, Dosing Weight 73.182, kg, Start date: 10/31/17 8:57:00 CDT, Stop date: 10/31/17 8:57:00 CDT Albuterol 2018-0 No 2.5 mg, 3 Mem oria 0.83 MG/ML 3-30 mL, Route: l Inhalant 13:57: NEB, Drug Herm maru Solution 00 form: AERO, ONCE, Dosing Weight 73.182, kg, Start date: 10/31/17 8:57:00 CDT, Stop date: 10/31/17 8:57:00 CDT Albuterol 2018-0 No 2.5 mg, 3 Mem oria 0.83 MG/ML 3-30 mL, Route: l Inhalant 13:57: NEB, Drug Herm maru Solution 00 form: AERO, ONCE, Dosing Weight 73.182, kg, Start date: 10/31/17 8:57:00 CDT, Stop date: 10/31/17 8:57:00 CDT Albuterol 2018-0 No 2.5 mg, 3 Mem oria 0.83 MG/ML 3-30 mL, Route: l Inhalant 13:57: NEB, Drug Herm maru Solution 00 form: AERO, ONCE, Dosing Weight 73.182, kg, Start date: 10/31/17 8:57:00 CDT, Stop date: 10/31/17 8:57:00 CDT Albuterol 2018-0 No 2.5 mg, 3 Mem oria 0.83 MG/ML 3-30 mL, Route: l Inhalant 13:57: NEB, Drug Herm maru Solution 00 form: AERO, ONCE, Dosing Weight 73.182, kg, Start date: 10/31/17 8:57:00 CDT, Stop date: 10/31/17 8:57:00 CDT Albuterol 2018-0 No 2.5 mg, 3 Mem oria 0.83 MG/ML 3-30 mL, Route: l Inhalant 13:57: NEB, Drug Herm maru Solution 00 form: AERO, ONCE, Dosing Weight 73.182, kg, Start date: 10/31/17 8:57:00 CDT, Stop date: 10/31/17 8:57:00 CDT Sodium 2018-0 No 1,000 mL, Memori a Chloride 3-30 Rate: 25 l 0.9% IV 12:04: ml/hr, [place] 1000 mL 00 Infuse over: 40 hr, Route: IV, Dosing Weight 73.182 kg, Total Volume: 1,000, Start date: 10/31/17 7:04:00 CDT, Duration: 30 day, Stop date: 11/30/17 7:03:00 CDT, 1.8, m2 Sodium 2018-0 No 1,000 mL, Memori a Chloride 3-30 Rate: 25 l 0.9% IV 12:04: ml/hr, [place] 1000 mL 00 Infuse over: 40 hr, Route: IV, Dosing Weight 73.182 kg, Total Volume: 1,000, Start date: 10/31/17 7:04:00 CDT, Duration: 30 day, Stop date: 11/30/17 7:03:00 CDT, 1.8, m2 Sodium 2018-0 No 1,000 mL, Memori a Chloride 3-30 Rate: 25 l 0.9% IV 12:04: ml/hr, [place] 1000 mL 00 Infuse over: 40 hr, Route: IV, Dosing Weight 73.182 kg, Total Volume: 1,000, Start date: 10/31/17 7:04:00 CDT, Duration: 30 day, Stop date: 11/30/17 7:03:00 CDT, 1.8, m2 Sodium 2018-0 No 1,000 mL, Memori a Chloride 3-30 Rate: 25 l 0.9% IV 12:04: ml/hr, Derek 1000 mL 00 Infuse over: 40 hr, Route: IV, Dosing Weight 73.182 kg, Total Volume: 1,000, Start date: 10/31/17 7:04:00 CDT, Duration: 30 day, Stop date: 11/30/17 7:03:00 CDT, 1.8, m2 Sodium 2018-0 No 1,000 mL, Memori a Chloride 3-30 Rate: 25 l 0.9% IV 12:04: ml/hr, Derek 1000 mL 00 Infuse over: 40 hr, Route: IV, Dosing Weight 73.182 kg, Total Volume: 1,000, Start date: 10/31/17 7:04:00 CDT, Duration: 30 day, Stop date: 11/30/17 7:03:00 CDT, 1.8, m2 Sodium 2018-0 No 1,000 mL, Memori a Chloride 3-30 Rate: 25 l 0.9% IV 12:04: ml/hr, Derek 1000 mL 00 Infuse over: 40 hr, Route: IV, Dosing Weight 73.182 kg, Total Volume: 1,000, Start date: 10/31/17 7:04:00 CDT, Duration: 30 day, Stop date: 11/30/17 7:03:00 CDT, 1.8, m2 Sodium 2018-0 No 1,000 mL, Memori a Chloride 3-30 Rate: 25 l 0.9% IV 12:04: ml/hr, Derek 1000 mL 00 Infuse over: 40 hr, Route: IV, Dosing Weight 73.182 kg, Total Volume: 1,000, Start date: 10/31/17 7:04:00 CDT, Duration: 30 day, Stop date: 11/30/17 7:03:00 CDT, 1.8, m2 Sodium 2018-0 No 1,000 mL, Memori a Chloride 3-30 Rate: 25 l 0.9% IV 12:04: ml/hr, Derek 1000 mL 00 Infuse over: 40 hr, Route: IV, Dosing Weight 73.182 kg, Total Volume: 1,000, Start date: 10/31/17 7:04:00 CDT, Duration: 30 day, Stop date: 11/30/17 7:03:00 CDT, 1.8, m2 Etodolac 2017-0 No 300 mg = 1 Mem oria 300 MG Oral 3-04 cap, PO, l Capsule 08:30: BID, PRN Haris n [Lodine] 00 Pain, # 20 cap, 0 Refill(s) Etodolac 2017-0 No 300 mg = 1 Mem oria 300 MG Oral 3-04 cap, PO, l Capsule 08:30: BID, PRN Haris n [Lodine] 00 Pain, # 20 cap, 0 Refill(s) Etodolac 2017-0 No 300 mg = 1 Mem oria 300 MG Oral 3-04 cap, PO, l Capsule 08:30: BID, PRN Haris n [Lodine] 00 Pain, # 20 cap, 0 Refill(s) Etodolac 2017-0 No 300 mg = 1 Mem oria 300 MG Oral 3-04 cap, PO, l Capsule 08:30: BID, PRN Haris n [Lodine] 00 Pain, # 20 cap, 0 Refill(s) Etodolac 2017-0 No 300 mg = 1 Mem oria 300 MG Oral 3-04 cap, PO, l Capsule 08:30: BID, PRN Haris n [Lodine] 00 Pain, # 20 cap, 0 Refill(s) Etodolac 2018-0 No 300 mg = 1 Mem oria 300 MG Oral 3-04 cap, PO, l Capsule 08:30: BID, PRN Haris n [Lodine] 00 Pain, # 20 cap, 0 Refill(s) Etodolac 2017-0 No 300 mg = 1 Mem oria 300 MG Oral 3-04 cap, PO, l Capsule 08:30: BID, PRN Haris n [Lodine] 00 Pain, # 20 cap, 0 Refill(s) Etodolac 2018-0 No 300 mg = 1 Mem oria 300 MG Oral 3-04 cap, PO, l Capsule 08:30: BID, PRN Haris n [Lodine] 00 Pain, # 20 cap, 0 Refill(s) Ketorolac 2018-0 No 30 mg, Memori a 3-04 Route: IM, l 08:22: Drug form: Derek 00 INJ, ONCE, Dosing Weight 75, kg, Priority: STAT, Start date: 10/05/17 2:22:00 LEASING MANAGER, Stop date: 10/05/17 2:22:00 LEASING MANAGER Ketorolac 2018-0 No 30 mg, Memori a 3-04 Route: IM, l 08:22: Drug form: [place] 00 INJ, ONCE, Dosing Weight 75, kg, Priority: STAT, Start date: 10/05/17 2:22:00 LEASING MANAGER, Stop date: 10/05/17 2:22:00 LEASING MANAGER Ketorolac 2018-0 No 30 mg, Memori a 3-04 Route: IM, l 08:22: Drug form: [place] 00 INJ, ONCE, Dosing Weight 75, kg, Priority: STAT, Start date: 10/05/17 2:22:00 LEASING MANAGER, Stop date: 10/05/17 2:22:00 LEASING MANAGER Ketorolac 2018-0 No 30 mg, Memori a 3-04 Route: IM, l 08:22: Drug form: [place] 00 INJ, ONCE, Dosing Weight 75, kg, Priority: STAT, Start date: 10/05/17 2:22:00 LEASING MANAGER, Stop date: 10/05/17 2:22:00 LEASING MANAGER Ketorolac 2018-0 No 30 mg, Memori a 3-04 Route: IM, l 08:22: Drug form: [place] 00 INJ, ONCE, Dosing Weight 75, kg, Priority: STAT, Start date: 10/05/17 2:22:00 LEASING MANAGER, Stop date: 10/05/17 2:22:00 LEASING MANAGER Ketorolac 2018-0 No 30 mg, Memori a 3-04 Route: IM, l 08:22: Drug form: [place] 00 INJ, ONCE, Dosing Weight 75, kg, Priority: STAT, Start date: 10/05/17 2:22:00 LEASING MANAGER, Stop date: 10/05/17 2:22:00 LEASING MANAGER Ketorolac 2018-0 No 30 mg, Memori a 3-04 Route: IM, l 08:22: Drug form: [place] 00 INJ, ONCE, Dosing Weight 75, kg, Priority: STAT, Start date: 10/05/17 2:22:00 LEASING MANAGER, Stop date: 10/05/17 2:22:00 LEASING MANAGER Ketorolac 2018-0 No 30 mg, Memori a 3-04 Route: IM, l 08:22: Drug form: Derek 00 INJ, ONCE, Dosing Weight 75, kg, Priority: STAT, Start date: 10/05/17 2:22:00 LEASING MANAGER, Stop date: 10/05/17 2:22:00 LEASING MANAGER Zofran No Notes: Memoria 3-04 (Same as: l 06:03: Zofran [place] 00 ODT) Zofran No Notes: [facility] 3-04 (Same as: l 06:03: Zofran [place] 00 ODT) Zofran No Notes: [facility]oria 3-04 (Same as: l 06:03: Zofran [place] 00 ODT) Zofran No Notes: [facility] 3-04 (Same as: l 06:03: Zofran Derek 00 ODT) Zofran No Notes: [facility] 3-04 (Same as: l 06:03: Zofran [place] 00 ODT) Zofran No Notes: [facility] 3-04 (Same as: l 06:03: Zofran [place] 00 ODT) Zofran No Notes: [facility] 3-04 (Same as: l 06:03: Zofran Derek 00 ODT) Zofran No Notes: [facility] 3-04 (Same as: l 06:03: Zofran [place] 00 ODT) Morphine No Notes: [facility]oria 3-04 (Same l 06:02: as:MORPhin [place] 00 e Sulfate) Morphine 0 No Notes: [facility]oria 3-04 (Same l 06:02: as:MORPhin [place] 00 e Sulfate) Morphine 0 No Notes: [facility]oria 3-04 (Same l 06:02: as:MORPhin [place] 00 e Sulfate) Morphine 0 No Notes: [facility]oria 3-04 (Same l 06:02: as:MORPhin [place] 00 e Sulfate) Morphine 0 No Notes: [facility] 3-04 (Same l 06:02: as:MORPhin [place] 00 e Sulfate) Morphine 0 No Notes: [facility]oria 3-04 (Same l 06:02: as:MORPhin [place] 00 e Sulfate) Morphine 0 No Notes: [facility]oria 3-04 (Same l 06:02: as:MORPhin [place] 00 e Sulfate) Morphine 2017- No Notes: Memoria 3-04 (Same l 06:02: [...] 00 day, # 20 tab, 0 Refill(s) Methocarbam 2016-08 Yes 1,000 mg = Memoria ol 500 MG 1-10 2 tab, PO, l Oral Tablet 21:33: TID, X 3 [place] [Robaxin] 00 day, # 18 tab, 0 Refill(s) tramadol 2016-08 Yes 50 mg = 1 [place] vanna hydrochlori 1-10 tab, PO, l de 50 MG 21:33: Q6H, X 5 Anahi nn Oral Tablet 00 day, # 20 tab, 0 Refill(s) Methocarbam 2016-08 Yes 1,000 mg = Memoria ol 500 MG 1-10 2 tab, PO, l Oral Tablet 21:33: TID, X 3 [place] [Robaxin] 00 day, # 18 tab, 0 Refill(s) tramadol 2016-08 Yes 50 mg = 1 [place] hydrochlori 1-10 tab, PO, l de 50 MG 21:33: Q6H, X 5 [place] nn Oral Tablet 00 day, # 20 tab, 0 Refill(s) Methocarbam 2016-08 Yes 1,000 mg = Memoria ol 500 MG 1-10 2 tab, PO, l Oral Tablet 21:33: TID, X 3 [place] [Robaxin] 00 day, # 18 tab, 0 Refill(s) tramadol 2016-08 Yes 50 mg = 1 [place] hydrochlori 1-10 tab, PO, l de 50 MG 21:33: Q6H, X 5 [place] nn Oral Tablet 00 day, # 20 tab, 0 Refill(s) Methocarbam 2016-08 Yes 1,000 mg = Memoria ol 500 MG 1-10 2 tab, PO, l Oral Tablet 21:33: TID, X 3 [place] [Robaxin] day, # 18 tab, 0 Refill(s) tramadol 2016-08 Yes 50 mg = 1 [place] hydrochlori 1-10 tab, PO, l de 50 MG 21:33: Q6H, X 5 [place] nn Oral Tablet 00 day, # 20 tab, 0 Refill(s) Methocarbam 2016-08 Yes 1,000 mg = Memoria ol 500 MG 1-10 2 tab, PO, l Oral Tablet 21:33: TID, X 3 [place] [Robaxin] day, # 18 tab, 0 Refill(s) tramadol 2016-08 Yes 50 mg = 1 [place] vanna hydrochlori 1-10 tab, PO, l de 50 MG 21:33: Q6H, X 5 An[place] nn Oral Tablet day, # 20 tab, 0 Refill(s) Methocarbam 2016-08 Yes 1,000 mg = Memoria ol 500 MG 1-10 2 tab, PO, l Oral Tablet 21:33: TID, X 3 [place] [Robaxin] day, # 18 tab, 0 Refill(s) tramadol 2016-08 Yes 50 mg = 1 [place] hydrochlori 1-10 tab, PO, l de 50 MG 21:33: Q6H, X 5 Anahi nn Oral Tablet day, # 20 tab, 0 Refill(s) Methocarbam 2016-08 Yes 1,000 mg = Memoria ol 500 MG 1-10 2 tab, PO, l Oral Tablet 21:33: TID, X 3 [place] [Robaxin] day, # 18 tab, 0 Refill(s) tramadol 2016-08 Yes 50 mg = 1 [place] hydrochlori 1-10 tab, PO, l de 50 MG 21:33: Q6H, X 5 Anahi nn Oral Tablet 00 day, # 20 tab, 0 Refill(s) Mupirocin No 1 appl, Memor ia 0.02 MG/MG 3-22 NASAL, l Nasal 06:47: BID, # 1 Derek Ointment 00 gm, 0 [Bactroban] Refill(s) Septra DS Yes 1 tab, PO, Me moria 800 mg-160 3-22 BID, X 7 l mg oral 06:47: day, # 14 Anahi nn tablet 00 tab, 0 Refill(s) Mupirocin No 1 appl, Memor ia 0.02 MG/MG 3-22 NASAL, l Nasal 06:47: BID, # 1 [place] Ointment 00 gm, 0 [Bactroban] Refill(s) Septra DS Yes 1 tab, PO, Me moria 800 mg-160 3-22 BID, X 7 l mg oral 06:47: day, # 14 Anahi nn tablet 00 tab, 0 Refill(s) Mupirocin No 1 appl, Memor ia 0.02 MG/MG 3-22 NASAL, l Nasal 06:47: BID, # 1 Derek Ointment 00 gm, 0 [Bactroban] Refill(s) Septra DS Yes 1 tab, PO, Me moria 800 mg-160 3-22 BID, X 7 l mg oral 06:47: day, # 14 Anahi nn tablet 00 tab, 0 Refill(s) Mupirocin No 1 appl, Memor ia 0.02 MG/MG 3-22 NASAL, l Nasal 06:47: BID, # 1 Derek Ointment 00 gm, 0 [Bactroban] Refill(s) Septra DS Yes 1 tab, PO, Me moria 800 mg-160 3-22 BID, X 7 l mg oral 06:47: day, # 14 [place]ahi nn tablet 00 tab, 0 Refill(s) Mupirocin No 1 appl, Memor ia 0.02 MG/MG 3-22 NASAL, l Nasal 06:47: BID, # 1 Derek Ointment 00 gm, 0 [Bactroban] Refill(s) Septra DS Yes 1 tab, PO, Me moria 800 mg-160 3-22 BID, X 7 l mg oral 06:47: day, # 14 [place] nn tablet 00 tab, 0 Refill(s) Mupirocin No 1 appl, Memor ia 0.02 MG/MG 3-22 NASAL, l Nasal 06:47: BID, # 1 [place] Ointment 00 gm, 0 [Bactroban] Refill(s) Septra DS Yes 1 tab, PO, Me moria 800 mg-160 3-22 BID, X 7 l mg oral 06:47: day, # 14 [place] nn tablet 00 tab, 0 Refill(s) Mupirocin No 1 appl, Memor ia 0.02 MG/MG 3-22 NASAL, l Nasal 06:47: BID, # 1 [place] Ointment 00 gm, 0 [Bactroban] Refill(s) Septra DS Yes 1 tab, PO, Me moria 800 mg-160 3-22 BID, X 7 l mg oral 06:47: day, # 14 [place] nn tablet 00 tab, 0 Refill(s) Mupirocin No 1 appl, Memor ia 0.02 MG/MG 3-22 NASAL, l Nasal 06:47: BID, # 1 [place] Ointment 00 gm, 0 [Bactroban] Refill(s) Septra DS Yes 1 tab, PO, Me mor[place] 800 mg-160 3-22 BID, X 7 l mg oral 06:47: day, # 14 [place] nn tablet 00 tab, 0 Refill(s) tramadol No Notes: Not Mem oria hydrochlori 3-22 to exceed l de 50 MG 05:44: 400mg/day. Her prieto Oral Tablet 00 (Same As: Ultram) tramadol No Notes: Not Mem oria hydrochlori 3-22 to exceed l de 50 MG 05:44: 400mg/day. Her prieto Oral Tablet 00 (Same As: Ultram) tramadol No Notes: Not Mem oria hydrochlori 3-22 to exceed l de 50 MG 05:44: 400mg/day. Her prieto Oral Tablet 00 (Same As: Ultram) tramadol No Notes: Not Mem oria hydrochlori 3-22 to exceed l de 50 MG 05:44: 400mg/day. Her prieto Oral Tablet 00 (Same As: Ultram) tramadol No Notes: Not Mem oria hydrochlori 3-22 to exceed l de 50 MG 05:44: 400mg/day. Her prieto Oral Tablet 00 (Same As: Ultram) tramadol No Notes: Not Mem oria hydrochlori 3-22 to exceed l de 50 MG 05:44: 400mg/day. Her prieto Oral Tablet 00 (Same As: Ultram) tramadol 2016- No Notes: Not Mem oria hydrochlori 3-22 to exceed l de 50 MG 05:44: 400mg/day. Her prieto Oral Tablet 00 (Same As: Ultram) tramadol 2016- No Notes: Not Mem oria hydrochlori 3-22 to exceed l de 50 MG 05:44: 400mg/day. Her prieto Oral Tablet 00 (Same As: Ultram) LET topical No Notes: For Memoria 3-22 topical l 05:43: use only - Derek 00 Lidocain-e pinephrine -tetracain e 1.5 ml top GEL. (Same as: Adrenalin- Xylocaine- Tetracaine ) LET topical No Notes: For Memoria 3-22 topical l 05:43: use only - [place] 00 Lidocain-e pinephrine -tetracain e 1.5 ml top GEL. (Same as: Adrenalin- Xylocaine- Tetracaine ) LET topical No Notes: For Memoria 3-22 topical l 05:43: use only - [place] 00 Lidocain-e pinephrine -tetracain e 1.5 ml top GEL. (Same as: Adrenalin- Xylocaine- Tetracaine ) LET topical No Notes: For Memoria 3-22 topical l 05:43: use only - Derek 00 Lidocain-e pinephrine -tetracain e 1.5 ml top GEL. (Same as: Adrenalin- Xylocaine- Tetracaine ) LET topical No Notes: For Memoria 3-22 topical l 05:43: use only - [place] 00 Lidocain-e pinephrine -tetracain e 1.5 ml top GEL. (Same as: Adrenalin- Xylocaine- Tetracaine ) LET topical No Notes: For Memoria 3-22 topical l 05:43: use only - Derek 00 Lidocain-e pinephrine -tetracain e 1.5 ml top GEL. (Same as: Adrenalin- Xylocaine- Tetracaine ) LET topical No Notes: For Memoria 3-22 topical l 05:43: use only - [place] 00 Lidocain-e pinephrine -tetracain e 1.5 ml top GEL. (Same as: Adrenalin- Xylocaine- Tetracaine ) LET topical No Notes: For Memoria 3-22 topical l 05:43: use only - [place] Lidocain-e pinephrine -tetracain e 1.5 ml top GEL. (Same as: Adrenalin- Xylocaine- Tetracaine ) Morphine No Notes: [facility]oria 3-14 (Same l 06:50: as:MORPhin [place] 00 e Sulfate) Morphine No Notes: [facility] 3-14 (Same l 06:50: as:MORPhin [place] 00 e Sulfate) Morphine No Notes: [facility] 3-14 (Same l 06:50: as:MORPhin [place] 00 e Sulfate) Morphine No Notes: [facility] 3-14 (Same l 06:50: as:MORPhin [place] 00 e Sulfate) Morphine No Notes: [facility] 3-14 (Same l 06:50: as:MORPhin [place] 00 e Sulfate) Morphine No Notes: [facility] 3-14 (Same l 06:50: as:MORPhin [place] 00 e Sulfate) Morphine No Notes: [facility] 3-14 (Same l 06:50: as:MORPhin [place] 00 e Sulfate) Morphine No Notes: [facility] 3-14 (Same l 06:50: as:MORPhin [place] 00 e Sulfate) Morphine No Notes: [facility] 3-14 (Same l 02:50: as:MORPhin [place] 00 e Sulfate) Ondansetron No Notes: [place] vanna 3-14 (Same as: l 02:50: Zofran) Derek 00 MEDICATION WASTE Product Size: 4 mg Product Wasted: ___ mg Sodium No 1,000 mL, Memori a Chloride 3-14 1000 l 0.154 02:50: ml/hr, Derek MEQ/ML 00 Infuse Injectable Over: 1 Solution hr, Route: IV, 1,000, Drug form: INJ, ONCE, Priority: STAT, Dosing Weight 71.036 kg, Start date: 10/14/16 21:50:00 CDT, Duration: 1 doses or times, Stop date: 10/14/16 21:50:00 CDT Morphine 2016-0 No Notes: [facility] 3-14 (Same l 02:50: as:MORPhin Derek 00 e Sulfate) Ondansetron No Notes: [place] vanna 3-14 (Same as: l 02:50: Zofran) Derek 00 MEDICATION WASTE Product Size: 4 mg Product Wasted: ___ mg Sodium 2017 No 1,000 mL, Memori a Chloride 3-14 1000 l 0.154 02:50: ml/hr, Derek MEQ/ML 00 Infuse Injectable Over: 1 Solution hr, Route: IV, 1,000, Drug form: INJ, ONCE, Priority: STAT, Dosing Weight 71.036 kg, Start date: 10/14/16 21:50:00 CDT, Duration: 1 doses or times, Stop date: 10/14/16 21:50:00 CDT Morphine No Notes: [facility]oria 3-14 (Same l 02:50: as:MORPhin [place] 00 e Sulfate) Ondansetron No Notes: [place] vanna 3-14 (Same as: l 02:50: Zofran) Derek 00 MEDICATION WASTE Product Size: 4 mg Product Wasted: ___ mg Sodium No 1,000 mL, Memori a Chloride 3-14 1000 l 0.154 02:50: ml/hr, [place] MEQ/ML 00 Infuse Injectable Over: 1 Solution hr, Route: IV, 1,000, Drug form: INJ, ONCE, Priority: STAT, Dosing Weight 71.036 kg, Start date: 10/14/16 21:50:00 CDT, Duration: 1 doses or times, Stop date: 10/14/16 21:50:00 CDT Morphine No Notes: [facility]oria 3-14 (Same l 02:50: as:MORPhin [place] 00 e Sulfate) Ondansetron No Notes: [place] vanna 3-14 (Same as: l 02:50: Zofran) Derek 00 MEDICATION WASTE Product Size: 4 mg Product Wasted: ___ mg Sodium 2017- No 1,000 mL, Memori a Chloride 3-14 1000 l 0.154 02:50: ml/hr, Derek MEQ/ML 00 Infuse Injectable Over: 1 Solution hr, Route: IV, 1,000, Drug form: INJ, ONCE, Priority: STAT, Dosing Weight 71.036 kg, Start date: 10/14/16 21:50:00 CDT, Duration: 1 doses or times, Stop date: 10/14/16 21:50:00 CDT Morphine No Notes: [facility]oria 3-14 (Same l 02:50: as:MORPhin [place] 00 e Sulfate) Ondansetron No Notes: [place] vanna 3-14 (Same as: l 02:50: Zofran) Derek 00 MEDICATION WASTE Product Size: 4 mg Product Wasted: ___ mg Sodium 2017 No 1,000 mL, [facility] a Chloride 3-14 1000 l 0.154 02:50: ml/hr, [place] MEQ/ML 00 Infuse Injectable Over: 1 Solution hr, Route: IV, 1,000, Drug form: INJ, ONCE, Priority: STAT, Dosing Weight 71.036 kg, Start date: 10/14/16 21:50:00 CDT, Duration: 1 doses or times, Stop date: 10/14/16 21:50:00 CDT Morphine 0 No Notes: [facility] 3-14 (Same l 02:50: as:MORPhin [place] 00 e Sulfate) Ondansetron No Notes: [place] vanna 3-14 (Same as: l 02:50: Zofran) [place] 00 MEDICATION WASTE Product Size: 4 mg Product Wasted: ___ mg Sodium 2017- No 1,000 mL, Memori a Chloride 3-14 1000 l 0.154 02:50: ml/hr, [place] MEQ/ML 00 Infuse Injectable Over: 1 Solution hr, Route: IV, 1,000, Drug form: INJ, ONCE, Priority: STAT, Dosing Weight 71.036 kg, Start date: 10/14/16 21:50:00 CDT, Duration: 1 doses or times, Stop date: 10/14/16 21:50:00 CDT Morphine 0 No Notes: [facility]oria 3-14 (Same l 02:50: as:MORPhin Derek 00 e Sulfate) Ondansetron No Notes: [place] vanna 3-14 (Same as: l 02:50: Zofran) Derek 00 MEDICATION WASTE Product Size: 4 mg Product Wasted: ___ mg Sodium 2017 No 1,000 mL, Memori a Chloride 3-14 1000 l 0.154 02:50: ml/hr, [place] MEQ/ML 00 Infuse Injectable Over: 1 Solution hr, Route: IV, 1,000, Drug form: INJ, ONCE, Priority: STAT, Dosing Weight 71.036 kg, Start date: 10/14/16 21:50:00 CDT, Duration: 1 doses or times, Stop date: 10/14/16 21:50:00 CDT Morphine No Notes: [facility] 3-14 (Same l 02:50: as:MORPhin e Sulfate) Ondansetron No Notes: [place] vanna 3-14 (Same as: l 02:50: Zofran) Derek 00 MEDICATION WASTE Product Size: [...] 13 day, # 21 tab, 0 Refill(s) Metronidazo 2014-08 Yes 500 mg = 1 Memoria le 500 MG 1-23 tab, PO, l Oral Tablet 15:00: Q8H, X 7 [place] r[place] [Flagyl] 13 day, # 21 tab, 0 Refill(s) Metronidazo 2014-08 Yes 500 mg = 1 Memoria le 500 MG 1-23 tab, PO, l Oral Tablet 15:00: Q8H, X 7 [place] r[place] [Flagyl] 13 day, # 21 tab, 0 Refill(s) Metronidazo 2014-08 Yes 500 mg = 1 Memoria le 500 MG 1-23 tab, PO, l Oral Tablet 15:00: Q8H, X 7 He r[place] [Flagyl] 13 day, # 21 tab, 0 Refill(s) Metronidazo 2014-08 Yes 500 mg = 1 Memoria le 500 MG 1-23 tab, PO, l Oral Tablet 15:00: Q8H, X 7 [place] r[place] [Flagyl] 13 day, # 21 tab, 0 Refill(s) Metronidazo 2014-08 Yes 500 mg = 1 Memoria le 500 MG 1-23 tab, PO, l Oral Tablet 15:00: Q8H, X 7 He r[place] [Flagyl] 13 day, # 21 tab, 0 Refill(s) Metronidazo 2014-08 Yes 500 mg = 1 Memoria le 500 MG 1-23 tab, PO, l Oral Tablet 15:00: Q8H, X 7 [place] r[place] [Flagyl] 13 day, # 21 tab, 0 Refill(s) Metronidazo 2014-08 Yes 500 mg = 1 Memoria le 500 MG 1-23 tab, PO, l Oral Tablet 15:00: Q8H, X 7 [place] r[place] [Flagyl] 13 day, # 21 tab, 0 Refill(s) ciprofloxac 2014-08 Yes 500 mg = 1 Memoria in 500 mg 1-23 tab, PO, l oral tablet 15:00: Q12H, X 7 H ermann 11 day, # 14 tab, 0 Refill(s) ciprofloxac 2014-08 Yes 500 mg = 1 Memoria in 500 mg 1-23 tab, PO, l oral tablet 15:00: Q12H, X 7 H ermann 11 day, # 14 tab, 0 Refill(s) ciprofloxac 2014-08 Yes 500 mg = 1 Memoria in 500 mg 1-23 tab, PO, l oral tablet 15:00: Q12H, X 7 H ermann 11 day, # 14 tab, 0 Refill(s) ciprofloxac 2014-08 Yes 500 mg = 1 Memoria in 500 mg 1-23 tab, PO, l oral tablet 15:00: Q12H, X 7 H ermann 11 day, # 14 tab, 0 Refill(s) ciprofloxac 2014-08 Yes 500 mg = 1 Memoria in 500 mg 1-23 tab, PO, l oral tablet 15:00: Q12H, X 7 H ermann 11 day, # 14 tab, 0 Refill(s) ciprofloxac 2014-08 Yes 500 mg = 1 [facility] in 500 mg 1-23 tab, PO, l oral tablet 15:00: Q12H, X 7 H ermann 11 day, # 14 tab, 0 Refill(s) ciprofloxac 2014-08 Yes 500 mg = 1 [facility] in 500 mg 1-23 tab, PO, l oral tablet 15:00: Q12H, X 7 H ermann 11 day, # 14 tab, 0 Refill(s) ciprofloxac 2014-08 Yes 500 mg = 1 [facility] in 500 mg 1-23 tab, PO, l oral tablet 15:00: Q12H, X 7 H ermann 11 day, # 14 tab, 0 Refill(s) Protonix 2014-08 No Notes: Memoria 1-22 Tablet l 22:30: should not [place] 00 be chewed or crushed. (Same as: Protonix) Protonix 2014-08 No Notes: [facility] 1-22 Tablet l 22:30: should not [place] 00 be chewed or crushed. (Same as: Protonix) Protonix 2014-08 No Notes: [facility]oria 1-22 Tablet l 22:30: should not [place] 00 be chewed or crushed. (Same as: Protonix) Protonix 2014-08 No Notes: [facility] 1-22 Tablet l 22:30: should not [place] 00 be chewed or crushed. (Same as: Protonix) Protonix 2014-08 No Notes: [facility] 1-22 Tablet l 22:30: should not [place] 00 be chewed or crushed. (Same as: Protonix) Protonix 2014-08 No Notes: [facility] 1-22 Tablet l 22:30: should not [place] 00 be chewed or crushed. (Same as: Protonix) Protonix 2014-08 No Notes: [facility] 1-22 Tablet l 22:30: should not [place] 00 be chewed or crushed. (Same as: Protonix) Protonix 2014-08 No Notes: [facility] 1-22 Tablet l 22:30: should not [place] 00 be chewed or crushed. (Same as: Protonix) Prilosec 2014-08 No 40 mg, Mem[facility] 1 Route: PO, l 15:00: Drug form: Derek 00 DRC, Daily, Dosing Weight 71.036, kg, Start date: 06/25/15 9:00:00, Duration: 30 day, Stop date: 07/24/15 9:00:00 Prilosec 2014-08 No 40 mg, [facility] 1 Route: PO, l 15:00: Drug form: [place] 00 DRC, Daily, Dosing Weight 71.036, kg, Start date: 06/25/15 9:00:00, Duration: 30 day, Stop date: 07/24/15 9:00:00 Prilosec 2014-08 No 40 mg, [facility] 1 Route: PO, l 15:00: Drug form: [place] 00 DRC, Daily, Dosing Weight 71.036, kg, Start date: 06/25/15 9:00:00, Duration: 30 day, Stop date: 07/24/15 9:00:00 Prilosec 2014-08 No 40 mg, [facility] 1 Route: PO, l 15:00: Drug form: [place] 00 DRC, Daily, Dosing Weight 71.036, kg, Start date: 06/25/15 9:00:00, Duration: 30 day, Stop date: 07/24/15 9:00:00 Prilosec 2014-08 No 40 mg, [facility] 1 Route: PO, l 15:00: Drug form: [place] 00 DRC, Daily, Dosing Weight 71.036, kg, Start date: 06/25/15 9:00:00, Duration: 30 day, Stop date: 07/24/15 9:00:00 Prilosec 2014-08 No 40 mg, [facility] 1- Route: PO, l 15:00: Drug form: [place] 00 DRC, Daily, Dosing Weight 71.036, kg, Start date: 06/25/15 9:00:00, Duration: 30 day, Stop date: 07/24/15 9:00:00 Prilosec 2014-08 No 40 mg, [facility] 1- Route: PO, l 15:00: Drug form: [place] DRC, Daily, Dosing Weight 71.036, kg, Start date: 06/25/15 9:00:00, Duration: 30 day, Stop date: 07/24/15 9:00:00 Prilosec 2014-08 No 40 mg, [facility] 08-25 Route: PO, l 15:00: Drug form: [place] DRC, Daily, Dosing Weight 71.036, kg, Start date: 06/25/15 9:00:00, Duration: 30 day, Stop date: 07/24/15 9:00:00 Zocor 2014-08 No Notes: [facility] - (Same as: l 03:00: Zocor) gabapentin 2014-08 No Notes: [facility] ia 300 MG Oral - (Same as: l Capsule 03:00: Neurontin) Zocor 2014-08 No Notes: [facility] 1-22 (Same as: l 03:00: Zocor) gabapentin 2014-08 No Notes: [facility] 300 MG Oral - (Same as: l Capsule 03:00: Neurontin) Zocor 2014-08 No Notes: [facility] 1-22 (Same as: l 03:00: Zocor) gabapentin 2014-08 No Notes: [facility] 300 MG Oral - (Same as: l Capsule 03:00: Neurontin) Zocor 2014-08 No Notes: [facility] 1-22 (Same as: l 03:00: Zocor) gabapentin 2014-08 No Notes: [facility] ia 300 MG Oral -22 (Same as: l Capsule 03:00: Neurontin) Zocor 2014-08 No Notes: Memoria 1-22 (Same as: l 03:00: Zocor) gabapentin 2014-08 No Notes: Memor ia 300 MG Oral 1-22 (Same as: l Capsule 03:00: Neurontin) Zocor 2014-08 No Notes: Memoria 1-22 (Same as: l 03:00: Zocor) gabapentin 2014-08 No Notes: Memor ia 300 MG Oral 1-22 (Same as: l Capsule 03:00: Neurontin) Herm maru Zocor 2014-08 No Notes: Memoria 1-22 (Same as: l 03:00: Zocor) Derek 00 gabapentin 2014-08 No Notes: Memor ia 300 MG Oral - (Same as: l Capsule 03:00: Neurontin) Herm Zocor 2014-08 No Notes: Memoria 1-22 (Same as: l 03:00: Zocor) [place] 00 gabapentin 2014-08 No Notes: Memor ia 300 MG Oral - (Same as: l Capsule 03:00: Neurontin) Herm Insulin, 2014-08 No Notes: Memoria Aspart, 1- Roll in l Human 01:33: palms of [place] 00 hands gently; Do not shake vigorously . (Same as: NovoLOG) "single patient use only" Stable for 28 days at room temperatur e. Expires in days from ____Date Glucagon 2014-08 No 1 mg, Memoria - Route: IM, l 01:33: Drug form: [place] 00 PDR/INJ, PRN, Dosing Weight 71.036, kg, PRN Blood Glucose Results, Start date: 06/24/15 19:33:00, Duration: 30 day, Stop date: 07/24/15 19:32:00 Dextrose 2014-08 No 25 gm, 50 [place] v[place] 50% Syringe 1-22 mL, Route: l 01:33: IVP, Drug Form: INJ, Dosing Weight 71.036, kg, PRN, PRN Blood Glucose Results, Start date: 06/24/15 19:33:00, Duration: 30 day, Stop date: 07/24/15 19:32:00 Insulin, 2014-08 No Notes: Memoria Aspart, 1-22 Roll in l Human 01:33: palms of [place] 00 hands gently; Do not shake vigorously . (Same as: NovoLOG) "single patient use only" Stable for 28 days at room temperatur e. Expires in days from ____Date Glucagon 2014-08 No 1 mg, Memoria 1-22 Route: IM, l 01:33: Drug form: [place] 00 PDR/INJ, PRN, Dosing Weight 71.036, kg, PRN Blood Glucose Results, Start date: 06/24/15 19:33:00, Duration: 30 day, Stop date: 07/24/15 19:32:00 Dextrose 2014-08 No 25 gm, 50 [place] v[place] 50% Syringe 1-22 mL, Route: l 01:33: IVP, Drug [place] 00 Form: INJ, Dosing Weight 71.036, kg, PRN, PRN Blood Glucose Results, Start date: 06/24/15 19:33:00, Duration: 30 day, Stop date: 07/24/15 19:32:00 Insulin, 2014-08 No Notes: Memoria Aspart, 08-25 Roll in l Human 01:33: palms of [place] 00 hands gently; Do not shake vigorously . (Same as: NovoLOG) "single patient use only" Stable for 28 days at room temperatur e. Expires in days from ____Date Glucagon 2014-08 No 1 mg, Memoria 08-25 Route: IM, l 01:33: Drug form: [place] 00 PDR/INJ, PRN, Dosing Weight 71.036, kg, PRN Blood Glucose Results, Start date: 06/24/15 19:33:00, Duration: 30 day, Stop date: 07/24/15 19:32:00 Dextrose 2014-08 No 25 gm, 50 [place] v[place] 50% Syringe 1-22 mL, Route: l 01:33: IVP, Drug [place] 00 Form: INJ, Dosing Weight 71.036, kg, PRN, PRN Blood Glucose Results, Start date: 06/24/15 19:33:00, Duration: 30 day, Stop date: 07/24/15 19:32:00 Insulin, 2014-08 No Notes: Memoria Aspart, 08-25 Roll in l Human 01:33: palms of [place] 00 hands gently; Do not shake vigorously . (Same as: NovoLOG) "single patient use only" Stable for 28 days at room temperatur e. Expires in days from ____Date Glucagon 2014-08 No 1 mg, Memoria 08-25 Route: IM, l 01:33: Drug form: [place] 00 PDR/INJ, PRN, Dosing Weight 71.036, kg, PRN Blood Glucose Results, Start date: 06/24/15 19:33:00, Duration: 30 day, Stop date: 07/24/15 19:32:00 Dextrose 2014-08 No 25 gm, 50 [place] v[place] 50% Syringe 1-22 mL, Route: l 01:33: IVP, Drug [place] 00 Form: INJ, Dosing Weight 71.036, kg, PRN, PRN Blood Glucose Results, Start date: 06/24/15 19:33:00, Duration: 30 day, Stop date: 07/24/15 19:32:00 Insulin, 2014-08 No Notes: Memoria Aspart, 08-25 Roll in l Human 01:33: palms of [place] 00 hands gently; Do not shake vigorously . (Same as: NovoLOG) "single patient use only" Stable for 28 days at room temperatur e. Expires in days from ____Date Glucagon 2014-08 No 1 mg, Memoria 08-25 Route: IM, l 01:33: Drug form: [place] 00 PDR/INJ, PRN, Dosing Weight 71.036, kg, PRN Blood Glucose Results, Start date: 06/24/15 19:33:00, Duration: 30 day, Stop date: 07/24/15 19:32:00 Dextrose 2014-08 No 25 gm, 50 [place] v[place] 50% Syringe 1-22 mL, Route: l 01:33: IVP, Drug [place] 00 Form: INJ, Dosing Weight 71.036, kg, PRN, PRN Blood Glucose Results, Start date: 06/24/15 19:33:00, Duration: 30 day, Stop date: 07/24/15 19:32:00 Insulin, 2014-08 No Notes: Memoria Aspart, 08-25 Roll in l Human 01:33: palms of [place] 00 hands gently; Do not shake vigorously . (Same as: NovoLOG) "single patient use only" Stable for 28 days at room temperatur e. Expires in days from ____Date Glucagon 2014-08 No 1 mg, Memoria 08-25 Route: IM, l 01:33: Drug form: [place] 00 PDR/INJ, PRN, Dosing Weight 71.036, kg, PRN Blood Glucose Results, Start date: 06/24/15 19:33:00, Duration: 30 day, Stop date: 07/24/15 19:32:00 Dextrose 2014-08 No 25 gm, 50 [place] v[place] 50% Syringe 1-22 mL, Route: l 01:33: IVP, Drug [place] 00 Form: INJ, Dosing Weight 71.036, kg, PRN, PRN Blood Glucose Results, Start date: 06/24/15 19:33:00, Duration: 30 day, Stop date: 07/24/15 19:32:00 Insulin, 2014-08 No Notes: Memoria Aspart, 08-25 Roll in l Human 01:33: palms of [place] 00 hands gently; Do not shake vigorously . (Same as: NovoLOG) "single patient use only" Stable for 28 days at room temperatur e. Expires in days from ____Date Glucagon 2014-08 No 1 mg, Memoria 08-25 Route: IM, l 01:33: Drug form: [place] 00 PDR/INJ, PRN, Dosing Weight 71.036, kg, PRN Blood Glucose Results, Start date: 06/24/15 19:33:00, Duration: 30 day, Stop date: 07/24/15 19:32:00 Dextrose 2014-08 No 25 gm, 50 [place] v[place] 50% Syringe 1-22 mL, Route: l 01:33: IVP, Drug [place] 00 Form: INJ, Dosing Weight 71.036, kg, PRN, PRN Blood Glucose Results, Start date: 06/24/15 19:33:00, Duration: 30 day, Stop date: 07/24/15 19:32:00 Insulin, 2014-08 No Notes: Memoria Aspart, 08-25 Roll in l Human 01:33: palms of [place] 00 hands gently; Do not shake vigorously . (Same as: NovoLOG) "single patient use only" Stable for 28 days at room temperatur e. Expires in days from ____Date Glucagon 2014-08 No 1 mg, Memoria 08-25 Route: IM, l 01:33: Drug form: [place] 00 PDR/INJ, PRN, Dosing Weight 71.036, kg, PRN Blood Glucose Results, Start date: 06/24/15 19:33:00, Duration: 30 day, Stop date: 07/24/15 19:32:00 Dextrose 2014-08 No 25 gm, 50 [place] v[place] 50% Syringe 1-22 mL, Route: l 01:33: IVP, Drug [place] 00 Form: INJ, Dosing Weight 71.036, kg, PRN, PRN Blood Glucose Results, Start date: 06/24/15 19:33:00, Duration: 30 day, Stop date: 07/24/15 19:32:00 Flagyl 2014-08 No Notes: Memoria 08-25 (Same as: l 01:00: Flagyl) [place] 00 Avoid alcohol. Ciprofloxac 2014-08 No Notes: Do M emoria in 2 MG/ML -22 not l Injectable 01:00: refrigerat H ermann Solution 00 e [Cipro] Flagyl 2014-08 No Notes: Memoria 08-25 (Same as: l 01:00: Flagyl) [place] 00 Avoid alcohol. Ciprofloxac 2014-08 No Notes: Do M emoria in 2 MG/ML -22 not l Injectable 01:00: refrigerat H ermann Solution 00 e [Cipro] Flagyl 2014-08 No Notes: Memoria 08-25 (Same as: l 01:00: Flagyl) [place] 00 Avoid alcohol. Ciprofloxac 2014-08 No Notes: Do M emoria in 2 MG/ML 1-22 not l Injectable 01:00: refrigerat H ermann Solution 00 e [Cipro] Flagyl 2014-08 No Notes: Memoria 08-25 (Same as: l 01:00: Flagyl) [place] 00 Avoid alcohol. Ciprofloxac 2014-08 No Notes: Do M emoria in 2 MG/ML 1-22 not l Injectable 01:00: refrigerat H ermann Solution 00 e [Cipro] Flagyl 2014-08 No Notes: Memoria 08-25 (Same as: l 01:00: Flagyl) [place] 00 Avoid alcohol. Ciprofloxac 2014-08 No Notes: Do M emoria in 2 MG/ML 08-25 not l Injectable 01:00: refrigerat H [place] Solution 00 e [Cipro] Flagyl 2014-08 No Notes: Memoria 08-25 (Same as: l 01:00: Flagyl) [place] 00 Avoid alcohol. Ciprofloxac 2014-08 No Notes: Do M emoria in 2 MG/ML 08-25 not l Injectable 01:00: refrigerat H [place] Solution 00 e [Cipro] Flagyl 2014-08 No Notes: Memoria 08-25 (Same as: l 01:00: Flagyl) [place] 00 Avoid alcohol. Ciprofloxac 2014-08 No Notes: Do M emoria in 2 MG/ML 08-25 not l Injectable 01:00: refrigerat H ermann Solution 00 e [Cipro] Flagyl 2014-08 No Notes: Memoria 08-25 (Same as: l 01:00: Flagyl) [place] 00 Avoid alcohol. Ciprofloxac 2014-08 No Notes: Do M emoria in 2 MG/ML 08-25 not l Injectable 01:00: refrigerat H ermann Solution 00 e [Cipro] Flexeril 2014-08 No Notes: Memoria 08-25 (Same As: l 00:53: Flexeril) Derek Flexeril 2014-08 No Notes: Memoria 08-25 (Same As: l 00:53: Flexeril) Derek Flexeril 2014-08 No Notes: Memoria - (Same As: l 00:53: Flexeril) Derek Flexeril 2014-08 No Notes: Memoria - (Same As: l 00:53: Flexeril) Derek Flexeril 2014-08 No Notes: Memoria - (Same As: l 00:53: Flexeril) Derek Flexeril 2014-08 No Notes: Memoria 08-25 (Same As: l 00:53: Flexeril) Derek Flexeril 2014-08 No Notes: Memoria 08-25 (Same As: l 00:53: Flexeril) [place] Flexeril 2014-08 No Notes: Memoria 08-25 (Same As: l 00:53: Flexeril) [place] 00 Acetaminoph 2014-08 No Notes: Do M emoria en 325 MG / 08-25 not exceed l Hydrocodone 00:52: 4gm/day of [place] Bitartrate 00 acetaminop 10 MG Oral hen. (Same Tablet as: [place] [[place] 325/10) ] Acetaminoph 2014-08 No Notes: Do M emoria en 325 MG / 08-25 not exceed l Hydrocodone 00:52: 4gm/day of Derek Bitartrate 00 acetaminop 10 MG Oral hen. (Same Tablet as: [place] [[place] 325/10) ] Acetaminoph 2014-08 No Notes: Do M emoria en 325 MG / 08-25 not exceed l Hydrocodone 00:52: 4gm/day of [place] Bitartrate 00 acetaminop 10 MG Oral hen. (Same Tablet as: [place] [[place] 325/10) ] Acetaminoph 2014-08 No Notes: Do M emoria en 325 MG / 08-25 not exceed l Hydrocodone 00:52: 4gm/day of [place] Bitartrate 00 acetaminop 10 MG Oral hen. (Same Tablet as: [place] [[place] 325/10) ] Acetaminoph 2014-08 No Notes: Do M emoria en 325 MG / 08-25 not exceed l Hydrocodone 00:52: 4gm/day of Derek Bitartrate 00 acetaminop 10 MG Oral hen. (Same Tablet as: [place] [[place] 325/10) ] Acetaminoph 2014-08 No Notes: Do M emoria en 325 MG / 08-25 not exceed l Hydrocodone 00:52: 4gm/day of [place] Bitartrate 00 acetaminop 10 MG Oral hen. (Same Tablet as: [place] [[place] 325/10) ] Acetaminoph 2014-08 No Notes: Do M emoria en 325 MG / 08-25 not exceed l Hydrocodone 00:52: 4gm/day of [place] Bitartrate 00 acetaminop 10 MG Oral hen. (Same Tablet as: [place] [[place] 325/10) ] Acetaminoph 2014-08 No Notes: Do M emoria en 325 MG / 08-25 not exceed l Hydrocodone 00:52: 4gm/day of Derek Bitartrate 00 acetaminop 10 MG Oral hen. (Same Tablet as: [place] [[place] 325/10) 10/325] Zofran 2014-08 No Notes: Memoria 08-25 (Same as: l 00:51: Zofran) [place] 00 MEDICATION WASTE Product Size: 4 mg Product Wasted: ___ mg Zofran 2014-08 No Notes: Memoria 08-25 (Same as: l 00:51: Zofran) [place] 00 MEDICATION WASTE Product Size: 4 mg Product Wasted: ___ mg Zofran 2014-08 No Notes: Memoria 08-25 (Same as: l 00:51: Zofran) [place] 00 MEDICATION WASTE Product Size: 4 mg Product Wasted: ___ mg Zofran 2014-08 No Notes: Memoria 08-25 (Same as: l 00:51: Zofran) [place] 00 MEDICATION WASTE Product Size: 4 mg Product Wasted: ___ mg Zofran 2014-08 No Notes: Memoria 08-25 (Same as: l 00:51: Zofran) [place] 00 MEDICATION WASTE Product Size: 4 mg Product Wasted: ___ mg Zofran 2014-08 No Notes: Memoria 08-25 (Same as: l 00:51: Zofran) [place] 00 MEDICATION WASTE Product Size: 4 mg Product Wasted: ___ mg Zofran 2014-08 No Notes: Memoria 08-25 (Same as: l 00:51: Zofran) [place] 00 MEDICATION WASTE Product Size: 4 mg Product Wasted: ___ mg Zofran 2014-08 No Notes: Memoria 08-25 (Same [...] 0.9% 08-24 Route: l 23:29: IVP, Drug [place] 00 Form: INJ, Dosing Weight 71.364, kg, PRN, PRN Line Flush, Start date: 06/24/15 17:29:00, Duration: 30 day, Stop date: 07/24/15 17:28:00 Sodium 2014-08 No 1,000 mL, Memori a Chloride 08-24 Rate: 100 l 0.154 23:29: ml/hr, Derek MEQ/ML 00 Infuse Injectable over: 10 Solution hr, Route: IV, Dosing Weight 71.364 kg, Total Volume: 1,000, Start date: 06/24/15 17:29:00, Stop date: 07/24/15 17:28:00 Ondansetron 2014-08 No Notes: [place] vanna 08-24 (Same as: l 23:29: Zofran) [place] 00 MEDICATION WASTE Product Size: 4 mg Product Wasted: ___ mg Morphine 2014-08 No Notes: Memoria 08-24 (Same l 23:29: as:MORPhin [place] 00 e Sulfate) Saline 2014-08 No 10 ml, Memoria Flush 0.9% 08-24 Route: l 23:29: IVP, Drug [place] 00 Form: INJ, Dosing Weight 71.364, kg, PRN, PRN Line Flush, Start date: 06/24/15 17:29:00, Duration: 30 day, Stop date: 07/24/15 17:28:00 Sodium 2014-08 No 1,000 mL, Memori a Chloride 08-24 Rate: 100 l 0.154 23:29: ml/hr, [place] MEQ/ML 00 Infuse Injectable over: 10 Solution hr, Route: IV, Dosing Weight 71.364 kg, Total Volume: 1,000, Start date: 06/24/15 17:29:00, Stop date: 07/24/15 17:28:00 Ondansetron 2014-08 No Notes: [place] vanna 08-24 (Same as: l 23:29: Zofran) [place] 00 MEDICATION WASTE Product Size: 4 mg Product Wasted: ___ mg Morphine 2014-08 No Notes: Memoria 08-24 (Same l 23:29: as:MORPhin [place] 00 e Sulfate) Saline 2014-08 No 10 ml, Memoria Flush 0.9% 08-24 Route: l 23:29: IVP, Drug [place] 00 Form: INJ, Dosing Weight 71.364, kg, PRN, PRN Line Flush, Start date: 06/24/15 17:29:00, Duration: 30 day, Stop date: 07/24/15 17:28:00 Sodium 2014-08 No 1,000 mL, Memori a Chloride 08-24 Rate: 100 l 0.154 23:29: ml/hr, [place] MEQ/ML 00 Infuse Injectable over: 10 Solution hr, Route: IV, Dosing Weight 71.364 kg, Total Volume: 1,000, Start date: 06/24/15 17:29:00, Stop date: 07/24/15 17:28:00 Ondansetron 2014-08 No Notes: [place] vanna 08-24 (Same as: l 23:29: Zofran) [place] 00 MEDICATION WASTE Product Size: 4 mg Product Wasted: ___ mg Morphine 2014-08 No Notes: Memoria 08-24 (Same l 23:29: as:MORPhin [place] 00 e Sulfate) Saline 2014-08 No 10 ml, Memoria Flush 0.9% 08-24 Route: l 23:29: IVP, Drug [place] 00 Form: INJ, Dosing Weight 71.364, kg, PRN, PRN Line Flush, Start date: 06/24/15 17:29:00, Duration: 30 day, Stop date: 07/24/15 17:28:00 Sodium 2014-08 No 1,000 mL, Memori a Chloride 08-24 Rate: 100 l 0.154 23:29: ml/hr, Derek MEQ/ML 00 Infuse Injectable over: 10 Solution hr, Route: IV, Dosing Weight 71.364 kg, Total Volume: 1,000, Start date: 06/24/15 17:29:00, Stop date: 07/24/15 17:28:00 Ondansetron 2014-08 No Notes: [place] vanna 08-24 (Same as: l 23:29: Zofran) [place] 00 MEDICATION WASTE Product Size: 4 mg Product Wasted: ___ mg Morphine 2014-08 No Notes: Memoria 08-24 (Same l 23:29: as:MORPhin [place] 00 e Sulfate) Saline 2014-08 No 10 ml, Memoria Flush 0.9% - Route: l 23:29: IVP, Drug [place] 00 Form: INJ, Dosing Weight 71.364, kg, PRN, PRN Line Flush, Start date: 06/24/15 17:29:00, Duration: 30 day, Stop date: 07/24/15 17:28:00 Sodium 2014-08 No 1,000 mL, Memori a Chloride 08-24 Rate: 100 l 0.154 23:29: ml/hr, Derek MEQ/ML 00 Infuse Injectable over: 10 Solution hr, Route: IV, Dosing Weight 71.364 kg, Total Volume: 1,000, Start date: 06/24/15 17:29:00, Stop date: 07/24/15 17:28:00 Ondansetron 2014-08 No Notes: [place] vanna 08-24 (Same as: l 23:29: Zofran) [place] 00 MEDICATION WASTE Product Size: 4 mg Product Wasted: ___ mg Morphine 2014-08 No Notes: Memoria 08-24 (Same l 23:29: as:MORPhin [place] 00 e Sulfate) Saline 2014-08 No 10 ml, Memoria Flush 0.9% 08-24 Route: l 23:29: IVP, Drug [place] 00 Form: INJ, Dosing Weight 71.364, kg, PRN, PRN Line Flush, Start date: 06/24/15 17:29:00, Duration: 30 day, Stop date: 07/24/15 17:28:00 Sodium 2014-08 No 1,000 mL, Memori a Chloride 08-24 Rate: 100 l 0.154 23:29: ml/hr, [place] MEQ/ML 00 Infuse Injectable over: 10 Solution hr, Route: IV, Dosing Weight 71.364 kg, Total Volume: 1,000, Start date: 06/24/15 17:29:00, Stop date: 07/24/15 17:28:00 Ondansetron 2014-08 No Notes: [place] vanna 08-24 (Same as: l 23:29: Zofran) [place] 00 MEDICATION WASTE Product Size: 4 mg Product Wasted: ___ mg Morphine 2014-08 No Notes: Memoria 08-24 (Same l 23:29: as:MORPhin [place] 00 e Sulfate) Saline 2014-08 No 10 ml, Memoria Flush 0.9% 08-24 Route: l 23:29: IVP, Drug [place] 00 Form: INJ, Dosing Weight 71.364, kg, PRN, PRN Line Flush, Start date: 06/24/15 17:29:00, Duration: 30 day, Stop date: 07/24/15 17:28:00 Sodium 2014-08 No 1,000 mL, Memori a Chloride 08-24 Rate: 100 l 0.154 23:29: ml/hr, [place] MEQ/ML 00 Infuse Injectable over: 10 Solution hr, Route: IV, Dosing Weight 71.364 kg, Total Volume: 1,000, Start date: 06/24/15 17:29:00, Stop date: 07/24/15 17:28:00 Ondansetron 2014-08 No Notes: [place] vanna 08-24 [...] 08-24 Rate: 100 l 0.154 23:29: ml/hr, [place] MEQ/ML 00 Infuse Injectable over: 10 Solution hr, Route: IV, Dosing Weight 71.364 kg, Total Volume: 1,000, Start date: 06/24/15 17:29:00, Stop date: 07/24/15 17:28:00 Dilaudid 2014-08 No 1 mg, 1 Memori a 1-21 mL, Route: l 22:07: IVP, Drug [place] 00 form: INJ, ONCE, Dosing Weight 71.364, kg, Priority: STAT, Start date: 06/24/15 16:07:00, Stop date: 06/24/15 16:07:00 Dilaudid 2014-1 No 1 mg, 1 Memori a 1-21 mL, Route: l 22:07: IVP, Drug [place] 00 form: INJ, ONCE, Dosing Weight 71.364, kg, Priority: STAT, Start date: 06/24/15 16:07:00, Stop date: 06/24/15 16:07:00 Dilaudid 2014- No 1 mg, 1 Memori a 1-21 mL, Route: l 22:07: IVP, Drug [place] 00 form: INJ, ONCE, Dosing Weight 71.364, kg, Priority: STAT, Start date: 06/24/15 16:07:00, Stop date: 06/24/15 16:07:00 Dilaudid 2014- No 1 mg, 1 Memori a 1-21 mL, Route: l 22:07: IVP, Drug [place] 00 form: INJ, ONCE, Dosing Weight 71.364, kg, Priority: STAT, Start date: 06/24/15 16:07:00, Stop date: 06/24/15 16:07:00 Dilaudid 2014- No 1 mg, 1 Memori a 1-21 mL, Route: l 22:07: IVP, Drug [place] 00 form: INJ, ONCE, Dosing Weight 71.364, kg, Priority: STAT, Start date: 06/24/15 16:07:00, Stop date: 06/24/15 16:07:00 Dilaudid 2014-1 No 1 mg, 1 Memori a 1-21 mL, Route: l 22:07: IVP, Drug [place] 00 form: INJ, ONCE, Dosing Weight 71.364, kg, Priority: STAT, Start date: 06/24/15 16:07:00, Stop date: 06/24/15 16:07:00 Dilaudid 2014- No 1 mg, 1 Memori a 1-21 mL, Route: l 22:07: IVP, Drug [place] 00 form: INJ, ONCE, Dosing Weight 71.364, kg, Priority: STAT, Start date: 06/24/15 16:07:00, Stop date: 06/24/15 16:07:00 Dilaudid 2014-08 No 1 mg, 1 Memori a 1-21 mL, Route: l 22:07: IVP, Drug form: INJ, ONCE, Dosing Weight 71.364, kg, Priority: STAT, Start date: 06/24/15 16:07:00, Stop date: 06/24/15 16:07:00 Flagyl 2014-08 No Notes: Memoria - (Same as: l 21:49: Flagyl) [place] 00 Avoid alcohol. Flagyl 2014-08 No Notes: Memoria 1- (Same as: l 21:49: Flagyl) [place] 00 Avoid alcohol. Flagyl 2014-08 No Notes: Memoria 1- (Same as: l 21:49: Flagyl) [place] 00 Avoid alcohol. Flagyl 2014-08 No Notes: Memoria - (Same as: l 21:49: Flagyl) [place] 00 Avoid alcohol. Flagyl 2014-08 No Notes: Memoria - (Same as: l 21:49: Flagyl) [place] 00 Avoid alcohol. Flagyl 2014-08 No Notes: Memoria 1- (Same as: l 21:49: Flagyl) [place] 00 Avoid alcohol. Flagyl 2014-08 No Notes: Memoria 1- (Same as: l 21:49: Flagyl) [place] 00 Avoid alcohol. Flagyl 2014-08 No Notes: Memoria 08-24 (Same as: l 21:49: Flagyl) [place] 00 Avoid alcohol. Ciprofloxac 2014-08 No Notes: Do M emoria in 08-24 not l 21:48: refrigerat [place] 00 e Ciprofloxac 2014-08 No Notes: Do M emoria in 08-24 not l 21:48: refrigerat [place] 00 e Ciprofloxac 2014-08 No Notes: Do M emoria in 08-24 not l 21:48: refrigerat [place] 00 e Ciprofloxac 2014-08 No Notes: Do M emoria in 08-24 not l 21:48: refrigerat [place] 00 e Ciprofloxac 2014-08 No Notes: Do M emoria in 08-24 not l 21:48: refrigerat [place] 00 e Ciprofloxac 2014-08 No Notes: Do M emoria in 08-24 not l 21:48: refrigerat [place] 00 e Ciprofloxac 2014-08 No Notes: Do M emoria in 08-24 not l 21:48: refrigerat [place] 00 e Ciprofloxac 2014-08 No Notes: Do M emoria in 08-24 not l 21:48: refrigerat [place] 00 e Ondansetron 2014-08 No Notes: [place] vanna 08-24 (Same as: l 18:46: Zofran) [place] 00 MEDICATION WASTE Product Size: 4 mg Product Wasted: ___ mg Morphine 2014-08 No Notes: Memoria 08-24 (Same l 18:46: as:MORPhin [place] 00 e Sulfate) Sodium 2014-08 No 1,000 mL, Memori a Chloride 21 1000 l 0.154 18:46: ml/hr, Derek MEQ/ML 00 Infuse Injectable Over: 1 Solution hr, Route: IV, 1,000, Drug form: INJ, ONCE, Priority: STAT, Dosing Weight 71.364 kg, Start date: 06/24/15 12:46:00, Duration: 1 doses or times, Stop date: 06/24/15 12:46:00 Saline 2014-08 No Notes: Memoria Flush 0.9% 08-24 (Same as: l 18:46: BD [place] 00 Posiflush) Ondansetron 2014-08 No Notes: [place] vanna 08-24 (Same as: l 18:46: Zofran) [place] 00 MEDICATION WASTE Product Size: 4 mg Product Wasted: ___ mg Morphine 2014-08 No Notes: Memoria 08-24 (Same l 18:46: as:MORPhin [place] 00 e Sulfate) Sodium 2014-08 No 1,000 mL, Memori a Chloride -21 1000 l 0.154 18:46: ml/hr, [place] MEQ/ML 00 Infuse Injectable Over: 1 Solution hr, Route: IV, 1,000, Drug form: INJ, ONCE, Priority: STAT, Dosing Weight 71.364 kg, Start date: 06/24/15 12:46:00, Duration: 1 doses or times, Stop date: 06/24/15 12:46:00 Saline 2014-08 No Notes: [facility] Flush 0.9% 1-21 (Same as: l 18:46: BD [place] 00 Posiflush) Ondansetron 2014-08 No Notes: [place] vanna 1-21 (Same as: l 18:46: Zofran) [place] 00 MEDICATION WASTE Product Size: 4 mg Product Wasted: ___ mg Morphine 2014-08 No Notes: Memoria 1-21 (Same l 18:46: as:MORPhin [place] 00 e Sulfate) Sodium 2014-08 No 1,000 mL, Memori a Chloride 1-21 1000 l 0.154 18:46: ml/hr, [place] MEQ/ML 00 Infuse Injectable Over: 1 Solution hr, Route: IV, 1,000, Drug form: INJ, ONCE, Priority: STAT, Dosing Weight 71.364 kg, Start date: 06/24/15 12:46:00, Duration: 1 doses or times, Stop date: 06/24/15 12:46:00 Saline 2014-08 No Notes: [facility] Flush 0.9% 1-21 (Same as: l 18:46: BD [place] 00 Posiflush) Ondansetron 2014-08 No Notes: [place] vanna 1-21 (Same as: l 18:46: Zofran) [place] 00 MEDICATION WASTE Product Size: 4 mg Product Wasted: ___ mg Morphine 2014-08 No Notes: Memoria 1-21 (Same l 18:46: as:MORPhin [place] 00 e Sulfate) Sodium 2014-08 No 1,000 mL, Memori a Chloride 1-21 1000 l 0.154 18:46: ml/hr, Derek MEQ/ML 00 Infuse Injectable Over: 1 Solution hr, Route: IV, 1,000, Drug form: INJ, ONCE, Priority: STAT, Dosing Weight 71.364 kg, Start date: 06/24/15 12:46:00, Duration: 1 doses or times, Stop date: 06/24/15 12:46:00 Saline 2014-08 No Notes: [facility] Flush 0.9% 1-21 (Same as: l 18:46: BD [place] 00 Posiflush) Ondansetron 2014-08 No Notes: [place] vanna 1- (Same as: l 18:46: Zofran) Derek 00 MEDICATION WASTE Product Size: 4 mg Product Wasted: ___ mg Morphine 2014-08 No Notes: Memoria -21 (Same l 18:46: as:MORPhin Derek 00 e Sulfate) Sodium 2014-08 No 1,000 mL, [facility]ori a Chloride 1-21 1000 l 0.154 18:46: ml/hr, Derek MEQ/ML 00 Infuse Injectable Over: 1 Solution hr, Route: IV, 1,000, Drug form: INJ, ONCE, Priority: STAT, Dosing Weight 71.364 kg, Start date: 06/24/15 12:46:00, Duration: 1 doses or times, Stop date: 06/24/15 12:46:00 Saline 2014-08 No Notes: [facility] Flush 0.9% 1-21 (Same as: l 18:46: BD Derek 00 Posiflush) Ondansetron 2014-08 No Notes: [place] vanna 08-24 (Same as: l 18:46: Zofran) Derek 00 MEDICATION WASTE Product Size: 4 mg Product Wasted: ___ mg Morphine 2014-08 No Notes: [facility] 08-24 (Same l 18:46: as:MORPhin Derek 00 e Sulfate) Sodium 2014-08 No 1,000 mL, [facility] a Chloride 1-21 1000 l 0.154 18:46: ml/hr, Derek MEQ/ML 00 Infuse Injectable Over: 1 Solution hr, Route: IV, 1,000, Drug form: INJ, ONCE, Priority: STAT, Dosing Weight 71.364 kg, Start date: 06/24/15 12:46:00, Duration: 1 doses or times, Stop date: 06/24/15 12:46:00 Saline 2014-08 No Notes: [facility] Flush 0.9% 1-21 (Same as: l 18:46: BD Derek 00 Posiflush) Ondansetron 2014-08 No Notes: [place] vanna -21 (Same as: l 18:46: Zofran) [place] 00 MEDICATION WASTE Product Size: 4 mg Product Wasted: ___ mg Morphine 2014-08 No Notes: [facility] 1-21 (Same l 18:46: as:MORPhin Derek 00 e Sulfate) Sodium 2014-08 No 1,000 mL, [facility] a Chloride 1-21 1000 l 0.154 18:46: ml/hr, [place] MEQ/ML 00 Infuse Injectable Over: 1 Solution hr, Route: IV, 1,000, Drug form: INJ, ONCE, Priority: STAT, Dosing Weight 71.364 kg, Start date: 06/24/15 12:46:00, Duration: 1 doses or times, Stop date: 06/24/15 12:46:00 Saline 2014-08 No Notes: [facility] Flush 0.9% 1-21 (Same as: l 18:46: BD Derek 00 Posiflush) Ondansetron 2014-08 No Notes: [place] vanna -21 (Same as: l 18:46: Zofran) Derek 00 MEDICATION WASTE Product Size: 4 mg Product Wasted: ___ mg Morphine 2014-08 No Notes: [facility] 1-21 (Same l 18:46: as:MORPhin Derek 00 e Sulfate) Sodium 2014-08 No 1,000 mL, Memori a Chloride 1-21 1000 l 0.154 18:46: ml/hr, Derek MEQ/ML 00 Infuse Injectable Over: 1 Solution hr, Route: IV, 1,000, Drug form: INJ, ONCE, Priority: STAT, Dosing Weight 71.364 kg, Start date: 06/24/15 12:46:00, Duration: 1 doses or times, Stop date: 06/24/15 12:46:00 Saline 2014-08 No Notes: Memoria Flush 0.9% 1-21 (Same as: l 18:46: BD Derek 00 Posiflush) Lisinopril 2014-08 No Notes: Memor ia 1-17 (Same as: l 23:00: Prinivil, Derek 00 Zestril) Lisinopril 2014-08 No Notes: Memor ia 1-17 (Same as: l 23:00: Prinivil, [place] 00 Zestril) Lisinopril 2014-08 No Notes: Memor ia 1-17 (Same as: l 23:00: Prinivil, [place] 00 Zestril) Lisinopril 2014-08 No Notes: Memor ia 1-17 (Same as: l 23:00: Prinivil, Derek 00 Zestril) Lisinopril 2014-08 No Notes: Memor ia 1-17 (Same as: l 23:00: Prinivil, Derek 00 Zestril) Lisinopril 2014-08 No Notes: Memor ia 1-17 (Same as: l 23:00: Prinivil, Derek 00 Zestril) Lisinopril 2014-08 No Notes: Memor ia 1-17 (Same as: l 23:00: Prinivil, [place] 00 Zestril) Lisinopril 2014-08 No Notes: Memor ia 1-17 (Same as: l 23:00: Prinivil, [place] 00 Zestril) Protonix 2014-08 No Notes: Memoria 1-17 Tablet l 22:30: should not [place] 00 be chewed or crushed. (Same as: Protonix) Protonix 2014-08 No Notes: Memoria 1-17 Tablet l 22:30: should not [place] 00 be chewed or crushed. (Same as: Protonix) Protonix 2014-08 No Notes: Memoria 1-17 Tablet l 22:30: should not [place] 00 be chewed or crushed. (Same as: Protonix) Protonix 2014-08 No Notes: Memoria 1-17 Tablet l 22:30: should not Derek 00 be chewed or crushed. (Same as: Protonix) Protonix 2014-08 No Notes: Memoria 1-17 Tablet l 22:30: should not [place] 00 be chewed or crushed. (Same as: Protonix) Protonix 2014-08 No Notes: Memoria 1-17 Tablet l 22:30: should not [place] 00 be chewed or crushed. (Same as: Protonix) Protonix 2014-08 No Notes: Memoria 1-17 Tablet l 22:30: should not Derek 00 be chewed or crushed. (Same as: Protonix) Protonix 2014-08 No Notes: Memoria 1-17 Tablet l 22:30: should not Derek 00 be chewed or crushed. (Same as: Protonix) Metronidazo 2014-08 Yes 500 mg = 1 Memoria le 500 MG 1-17 tab, PO, l Oral Tablet 16:38: Q8H, X 7 He r[place] [Flagyl] 00 day, # 21 tab, 0 Refill(s) ciprofloxac 2014-08 Yes 500 mg = 1 Memoria in 500 mg 1-17 tab, PO, l oral tablet 16:38: Q12H, X 7 H ermann 00 day, # 14 tab, 0 Refill(s) Metronidazo 2014-08 Yes 500 mg = 1 Memoria le 500 MG 1-17 tab, PO, l Oral Tablet 16:38: Q8H, X 7 [place] [Flagyl] 00 day, # 21 tab, 0 Refill(s) ciprofloxac 2014-08 Yes 500 mg = 1 Memoria in 500 mg 1-17 tab, PO, l oral tablet 16:38: Q12H, X 7 H ermann 00 day, # 14 tab, 0 Refill(s) Metronidazo 2014-08 Yes 500 mg = 1 Memoria le 500 MG 1-17 tab, PO, l Oral Tablet 16:38: Q8H, X 7 [place] [Flagyl] day, # 21 tab, 0 Refill(s) ciprofloxac 2014-08 Yes 500 mg = 1 Memoria in 500 mg 1-17 tab, PO, l oral tablet 16:38: Q12H, X 7 H ermann 00 day, # 14 tab, 0 Refill(s) Metronidazo 2014-08 Yes 500 mg = 1 Memoria le 500 MG 1-17 tab, PO, l Oral Tablet 16:38: Q8H, X 7 [place] [Flagyl] 00 day, # 21 tab, 0 Refill(s) ciprofloxac 2014-08 Yes 500 mg = 1 Memoria in 500 mg 1-17 tab, PO, l oral tablet 16:38: Q12H, X 7 H ermann 00 day, # 14 tab, 0 Refill(s) Metronidazo 2014-08 Yes 500 mg = 1 Memoria le 500 MG 1-17 tab, PO, l Oral Tablet 16:38: Q8H, X 7 [place] [Flagyl] 00 day, # 21 tab, 0 Refill(s) ciprofloxac 2014-08 Yes 500 mg = 1 Memoria in 500 mg 1-17 tab, PO, l oral tablet 16:38: Q12H, X 7 H ermann 00 day, # 14 tab, 0 Refill(s) Metronidazo 2014-08 Yes 500 mg = 1 Memoria le 500 MG 1-17 tab, PO, l Oral Tablet 16:38: Q8H, X 7 [place] [Flagyl] 00 day, # 21 tab, 0 Refill(s) ciprofloxac 2014-08 Yes 500 mg = 1 Memoria in 500 mg 1-17 tab, PO, l oral tablet 16:38: Q12H, X 7 H ermann 00 day, # 14 tab, 0 Refill(s) Metronidazo 2014-08 Yes 500 mg = 1 Memoria le 500 MG 1-17 tab, PO, l Oral Tablet 16:38: Q8H, X 7 [place] [Flagyl] 00 day, # 21 tab, 0 Refill(s) ciprofloxac 2014-08 Yes 500 mg = 1 Memoria in 500 mg 1-17 tab, PO, l oral tablet 16:38: Q12H, X 7 H ermann 00 day, # 14 tab, 0 Refill(s) Metronidazo 2014-08 Yes 500 mg = 1 Memoria le 500 MG 1-17 tab, PO, l Oral Tablet 16:38: Q8H, X 7 [place] [Flagyl] 00 day, # 21 tab, 0 Refill(s) ciprofloxac 2014-08 Yes 500 mg = 1 Memoria in 500 mg 1-17 tab, PO, l oral tablet 16:38: Q12H, X 7 H ermann day, # 14 tab, 0 Refill(s) PLease 2014-08 No PLease Memoria bring pt's 08-20 bring pt's l own Xopenx 15:00: own Xopenx H ermann inhaler & 00 inhaler & meloxicam meloxicam, Reminder, Drug form: MISC, Route: MISC, Daily, 06/20/15 9:00:00, Duration: 30 day, Stop date: 07/19/15 9:00:00 Prilosec 2014-08 No 40 mg, Memoria 08-20 Route: PO, l 15:00: Drug form: [place] 00 DRC, Daily, Dosing Weight 76.818, kg, Start date: 06/20/15 9:00:00, Duration: 30 day, Stop date: 07/19/15 9:00:00 influenza 2014-08 No Notes: Memori a virus 1-17 (Same as: l vaccine, 15:00: Fluzone Haris [...] 12F vaccine / pneumococca l capsular polysacchar PLease 2014-08 No PLease Memoria bring pt's -17 bring pt's l own Xopenx 15:00: own Xopenx H ermann inhaler & 00 inhaler & meloxicam meloxicam, Reminder, Drug form: MISC, Route: MISC, Daily, 06/20/15 9:00:00, Duration: 30 day, Stop date: 07/19/15 9:00:00 Prilosec 2014-08 No 40 mg, Memoria 08-20 Route: PO, l 15:00: Drug form: Derek 00 DRC, Daily, Dosing Weight 76.818, kg, Start date: 06/20/15 9:00:00, Duration: 30 day, Stop date: 07/19/15 9:00:00 influenza 2014-08 No Notes: Memori a virus 1-17 (Same as: l vaccine, 15:00: Fluzone Haris n inactivated 00 Quadrivale nt) For 3 years of age and older (0.5 mL IM) Shake well before use pneumococca 2014-08 No 0.5 mL, Mem oria l capsular 1-17 Route: IM, l polysacchar 15:00: Daily, Herm maru kera type 1 00 Start vaccine / date: pneumococca 06/20/15 l capsular 9:00:00, polysacchar Duration: kera type 1 doses or 10A vaccine times, / Stop date: pneumococca 06/20/15 l capsular 9:00:00 polysacchar kera type 11A vaccine / pneumococca l capsular polysacchar kera type 12F vaccine / pneumococca l capsular polysacchar PLease 2014-08 No PLease Memoria bring pt's -17 bring pt's l own Xopenx 15:00: own Xopenx H ermann inhaler & 00 inhaler & meloxicam meloxicam, Reminder, Drug form: MISC, Route: MISC, Daily, 06/20/15 9:00:00, Duration: 30 day, Stop date: 07/19/15 9:00:00 Prilosec 2014-08 No 40 mg, Memoria 08-20 Route: PO, l 15:00: Drug form: [place] 00 DRC, Daily, Dosing Weight 76.818, kg, Start date: 06/20/15 9:00:00, Duration: 30 day, Stop date: 07/19/15 9:00:00 influenza 2014-08 No Notes: Memori a virus 17 (Same as: l vaccine, 15:00: Fluzone Haris n inactivated 00 Quadrivale nt) For 3 years of age and older (0.5 mL IM) Shake well before use pneumococca 2014-08 No 0.5 mL, Mem oria l capsular 08-20 Route: IM, l polysacchar 15:00: Daily, Herm maru kera type 1 00 Start vaccine / date: pneumococca 06/20/15 l capsular 9:00:00, polysacchar Duration: kera type 1 doses or 10A vaccine times, / Stop date: pneumococca 06/20/15 l capsular 9:00:00 polysacchar kera type 11A vaccine / pneumococca l capsular polysacchar kera type 12F vaccine / pneumococca l capsular polysacchar PLease 2014-08 No PLease Memoria bring pt's -17 bring pt's l own Xopenx 15:00: own Xopenx H ermann inhaler & 00 inhaler & meloxicam meloxicam, Reminder, Drug form: MISC, Route: MISC, Daily, 06/20/15 9:00:00, Duration: 30 day, Stop date: 07/19/15 9:00:00 Prilosec 2014-08 No 40 mg, Memoria 1-17 Route: PO, l 15:00: Drug form: Derek 00 DRC, Daily, Dosing Weight 76.818, kg, Start date: 06/20/15 9:00:00, Duration: 30 day, Stop date: 07/19/15 9:00:00 influenza 2014-08 No Notes: Memori a virus 1-17 (Same as: l vaccine, 15:00: Fluzone Haris n inactivated 00 Quadrivale nt) For 3 years of age and older (0.5 mL IM) Shake well before use pneumococca 2014-08 No 0.5 mL, Mem oria l capsular 1-17 Route: IM, l polysacchar 15:00: Daily, Herm maru kera type 1 00 Start vaccine / date: pneumococca 06/20/15 l capsular 9:00:00, polysacchar Duration: kera type 1 doses or 10A vaccine times, / Stop date: pneumococca 06/20/15 l capsular 9:00:00 polysacchar kera type 11A vaccine / pneumococca l capsular polysacchar kera type 12F vaccine / pneumococca l capsular polysacchar PLease 2014-08 No PLease Memoria bring pt's 1-17 bring pt's l own Xopenx 15:00: own Xopenx H ermann inhaler & 00 inhaler & meloxicam meloxicam, Reminder, Drug form: MISC, Route: MISC, Daily, 06/20/15 9:00:00, Duration: 30 day, Stop date: 07/19/15 9:00:00 Prilosec 2014-08 No 40 mg, Memoria 1-17 Route: PO, l 15:00: Drug form: Derek 00 DRC, Daily, Dosing Weight 76.818, kg, Start date: 06/20/15 9:00:00, Duration: 30 day, Stop date: 07/19/15 9:00:00 influenza 2014-08 No Notes: Memori a virus 1-17 (Same as: l vaccine, 15:00: Fluzone Haris n inactivated 00 Quadrivale nt) For 3 years of age and older (0.5 mL IM) Shake well before use pneumococca 2014-08 No 0.5 mL, Mem oria l capsular 1-17 Route: IM, l polysacchar 15:00: Daily, Herm maru kera type 1 00 Start vaccine / date: pneumococca 06/20/15 l capsular 9:00:00, polysacchar Duration: kera type 1 doses or 10A vaccine times, / Stop date: pneumococca 06/20/15 l capsular 9:00:00 polysacchar kera type 11A vaccine / pneumococca l capsular polysacchar kera type 12F vaccine / pneumococca l capsular polysacchar PLease 2014-08 No PLease Memoria bring pt's - bring pt's l own Xopenx 15:00: own Xopenx H ermann inhaler & 00 inhaler & meloxicam meloxicam, Reminder, Drug form: MISC, Route: MISC, Daily, 06/20/15 9:00:00, Duration: 30 day, Stop date: 07/19/15 9:00:00 Prilosec 2014-08 No 40 mg, Memoria 08-20 Route: PO, l 15:00: Drug form: [place] 00 DRC, Daily, Dosing Weight 76.818, kg, Start date: 06/20/15 9:00:00, Duration: 30 day, Stop date: 07/19/15 9:00:00 influenza 2014-08 No Notes: Memori a virus 17 (Same as: l vaccine, 15:00: Fluzone Haris n inactivated 00 Quadrivale nt) For 3 years of age and older (0.5 mL IM) Shake well before use pneumococca 2014-08 No 0.5 mL, Mem oria l capsular 08-20 Route: IM, l polysacchar 15:00: Daily, Herm maru kera type 1 00 Start vaccine / date: pneumococca 06/20/15 l capsular 9:00:00, polysacchar Duration: kera type 1 doses or 10A vaccine times, / Stop date: pneumococca 06/20/15 l capsular 9:00:00 polysacchar kera type 11A vaccine / pneumococca l capsular polysacchar kera type 12F vaccine / pneumococca l capsular polysacchar PLease 2014-08 No PLease Memoria bring pt's -17 bring pt's l own Xopenx 15:00: own Xopenx H ermann inhaler & 00 inhaler & meloxicam meloxicam, Reminder, Drug form: MISC, Route: MISC, Daily, 06/20/15 9:00:00, Duration: 30 day, Stop date: 07/19/15 9:00:00 Prilosec 2014-08 No 40 mg, Memoria 08-20 Route: PO, l 15:00: Drug form: Derek 00 DRC, Daily, Dosing Weight 76.818, kg, Start date: 06/20/15 9:00:00, Duration: 30 day, Stop date: 07/19/15 9:00:00 influenza 2014-08 No Notes: Memori a virus 1-17 (Same as: l vaccine, 15:00: Fluzone Haris n inactivated 00 Quadrivale nt) For 3 years of age and older (0.5 mL IM) Shake well before use pneumococca 2014-08 No 0.5 mL, Mem oria l capsular 17 Route: IM, l polysacchar 15:00: Daily, Herm maru kera type 1 00 Start vaccine / date: pneumococca 06/20/15 l capsular 9:00:00, polysacchar Duration: kera type 1 doses or 10A vaccine times, / Stop date: pneumococca 06/20/15 l capsular 9:00:00 polysacchar kera type 11A vaccine / pneumococca l capsular polysacchar kera type 12F vaccine / pneumococca l capsular polysacchar PLease 2014-08 No PLease Memoria bring pt's -17 bring pt's l own Xopenx 15:00: own Xopenx H ermann inhaler & 00 inhaler & meloxicam meloxicam, Reminder, Drug form: MISC, Route: MISC, Daily, 06/20/15 9:00:00, Duration: 30 day, Stop date: 07/19/15 9:00:00 Prilosec 2014-08 No 40 mg, Memoria 17 Route: PO, l 15:00: Drug form: [place] 00 DRC, Daily, Dosing Weight 76.818, kg, Start date: 06/20/15 9:00:00, Duration: 30 day, Stop date: 07/19/15 9:00:00 influenza 2014-08 No Notes: Memori a virus 1-17 (Same as: l vaccine, 15:00: Fluzone Haris n inactivated 00 Quadrivale nt) For 3 years of age and older (0.5 mL IM) Shake well before use pneumococca 2014-08 No 0.5 mL, Mem oria l capsular 1-17 Route: IM, l polysacchar 15:00: Daily, kera type 1 00 Start vaccine / date: pneumococca 15 l capsular 9:00:00, polysacchar Duration: kera type 1 doses or 10A vaccine times, / Stop date: pneumococca 06/20/15 l capsular 9:00:00 polysacchar kera type 11A vaccine / pneumococca l capsular polysacchar kera type 12F vaccine / pneumococca l capsular polysacchar Zocor 2014-08 No Notes: Memoria 1-17 (Same as: l 03:00: Zocor) gabapentin 2014-08 No Notes: Memor ia 300 MG Oral -17 (Same as: l Capsule 03:00: Neurontin) Zocor 2014-08 No Notes: Memoria 1-17 (Same as: l 03:00: Zocor) gabapentin 2014-08 No Notes: Memor ia 300 MG Oral 1-17 (Same as: l Capsule 03:00: Neurontin) Zocor 2014-08 No Notes: Memoria 1-17 (Same as: l 03:00: Zocor) gabapentin 2014-08 No Notes: Memor ia 300 MG Oral 1-17 (Same as: l Capsule 03:00: Neurontin) Zocor 2014-08 No Notes: Memoria 1-17 (Same as: l 03:00: Zocor) gabapentin 2014-08 No Notes: Memor ia 300 MG Oral 1-17 (Same as: l Capsule 03:00: Neurontin) Zocor 2014-08 No Notes: Memoria 1-17 (Same as: l 03:00: Zocor) gabapentin 2014-08 No Notes: Memor ia 300 MG Oral 1-17 (Same as: l Capsule 03:00: Neurontin) Zocor 2014-08 No Notes: Memoria 1-17 (Same as: l 03:00: Zocor) gabapentin 2014-08 No Notes: Memor ia 300 MG Oral 1-17 (Same as: l Capsule 03:00: Neurontin) Zocor 2014-08 No Notes: Memoria 08-20 (Same as: l 03:00: Zocor) [place] gabapentin 2014-08 No Notes: Memor ia 300 MG Oral 08-20 (Same as: l Capsule 03:00: Neurontin) Herm maru Zocor 2014-08 No Notes: Memoria 08-20 (Same as: l 03:00: Zocor) [place] gabapentin 2014-08 No Notes: Memor ia 300 MG Oral 08-20 (Same as: l Capsule 03:00: Neurontin) Herm maru Xopenex 2014-08 No Notes: SEE Seymour vanna 08-20 RT l 02:09: DOCUMENTAT Derek 00 ION (Same as:Xopenex ) Non-Formul casa Xopenex 2014-08 No Notes: SEE Seymour vanna 08-20 RT l 02:09: DOCUMENTAT [place] 00 ION (Same as:Xopenex ) Non-Formul casa Xopenex 2014-08 No Notes: SEE Seymour vanna 08-20 RT l 02:09: DOCUMENTAT [place] 00 ION (Same as:Xopenex ) Non-Formul casa Xopenex 2014-08 No Notes: SEE Seymour vanna 08-20 RT l 02:09: DOCUMENTAT Derek 00 ION (Same as:Xopenex ) Non-Formul casa Xopenex 2014-08 No Notes: SEE Seymour vanna 08-20 RT l 02:09: DOCUMENTAT [place] 00 ION (Same as:Xopenex ) Non-Formul casa Xopenex 2014-08 No Notes: SEE Seymour vanna 08-20 RT l 02:09: DOCUMENTAT [place] 00 ION (Same as:Xopenex ) Non-Formul casa Xopenex 2014-08 No Notes: SEE Seymour vanna 08-20 RT l 02:09: DOCUMENTAT [place] 00 ION (Same as:Xopenex ) Non-Formul casa Xopenex 2014-08 No Notes: SEE Seymour vanna 08-20 RT l 02:09: DOCUMENTAT [place] 00 ION (Same as:Xopenex ) Non-Formul casa meloxicam 2014-08 No 7.5 mg, Memor ia 08-20 Route: PO, l 00:46: Drug form: TAB, Daily, Dosing Weight 76.818, kg, PRN Pain Score 4-6, Start date: 06/19/15 18:46:00, Duration: 30 day, Stop date: 07/19/15 18:45:00 Xopenex HFA 2014-1 No 2 puff, Mem oria 1-17 Route: l 00:46: INHALATION Derek 00 , Dosing Weight 76.818, kg, Q4H, PRN Wheezing, Start date: 06/19/15 18:46:00, Duration: 30 day, Stop date: 07/19/15 18:45:00 Flexeril 2015- No Notes: Memoria 1-17 (Same As: l 00:46: Flexeril) [place] 00 meloxicam 2014- No 7.5 mg, Memor ia 1-17 Route: PO, l 00:46: Drug form: [place] 00 TAB, Daily, Dosing Weight 76.818, kg, PRN Pain Score 4-6, Start date: 06/19/15 18:46:00, Duration: 30 day, Stop date: 07/19/15 18:45:00 Xopenex HFA 2014-1 No 2 puff, Mem oria 1-17 Route: l 00:46: INHALATION [place] 00 , Dosing Weight 76.818, kg, Q4H, PRN Wheezing, Start date: 06/19/15 18:46:00, Duration: 30 day, Stop date: 07/19/15 18:45:00 Flexeril 2014- No Notes: Memoria 1-17 (Same As: l 00:46: Flexeril) meloxicam 2014- No 7.5 mg, Memor ia 1-17 Route: PO, l 00:46: Drug form: [place] 00 TAB, Daily, Dosing Weight 76.818, kg, PRN Pain Score 4-6, Start date: 06/19/15 18:46:00, Duration: 30 day, Stop date: 07/19/15 18:45:00 Xopenex HFA 2014-1 No 2 puff, Mem oria 1-17 Route: l 00:46: INHALATION [place] 00 , Dosing Weight 76.818, kg, Q4H, PRN Wheezing, Start date: 06/19/15 18:46:00, Duration: 30 day, Stop date: 07/19/15 18:45:00 Flexeril 2014- No Notes: Memoria 1-17 (Same As: l 00:46: Flexeril) meloxicam 2014-08 No 7.5 mg, Memor ia 1-17 Route: PO, l 00:46: Drug form: [place] 00 TAB, Daily, Dosing Weight 76.818, kg, PRN Pain Score 4-6, Start date: 06/19/15 18:46:00, Duration: 30 day, Stop date: 07/19/15 18:45:00 Xopenex HFA 2014- No 2 puff, Mem oria 1-17 Route: l 00:46: INHALATION Derek 00 , Dosing Weight 76.818, kg, Q4H, PRN Wheezing, Start date: 06/19/15 18:46:00, Duration: 30 day, Stop date: 07/19/15 18:45:00 Flexeril 2014-08 No Notes: Memoria 1-17 (Same As: l 00:46: Flexeril) meloxicam 2014-08 No 7.5 mg, Memor ia 1-17 Route: PO, l 00:46: Drug form: [place] 00 TAB, Daily, Dosing Weight 76.818, kg, PRN Pain Score 4-6, Start date: 06/19/15 18:46:00, Duration: 30 day, Stop date: 07/19/15 18:45:00 Xopenex HFA 2014-1 No 2 puff, Mem oria 1-17 Route: l 00:46: INHALATION [place] 00 , Dosing Weight 76.818, kg, Q4H, PRN Wheezing, Start date: 06/19/15 18:46:00, Duration: 30 day, Stop date: 07/19/15 18:45:00 Flexeril 2014- No Notes: Memoria 1-17 (Same As: l 00:46: Flexeril) meloxicam 2014-08 No 7.5 mg, Memor ia 1-17 Route: PO, l 00:46: Drug form: Derek 00 TAB, Daily, Dosing Weight 76.818, kg, PRN Pain Score 4-6, Start date: 06/19/15 18:46:00, Duration: 30 day, Stop date: 07/19/15 18:45:00 Xopenex HFA 2014- No 2 puff, Mem oria 1-17 Route: l 00:46: INHALATION Derek 00 , Dosing Weight 76.818, kg, Q4H, PRN Wheezing, Start date: 06/19/15 18:46:00, Duration: 30 day, Stop date: 07/19/15 18:45:00 Flexeril 2014-08 No Notes: Memoria 1-17 (Same As: l 00:46: Flexeril) Derek meloxicam 2014- No 7.5 mg, Memor ia 1-17 Route: PO, l 00:46: Drug form: [place] 00 TAB, Daily, Dosing Weight 76.818, kg, PRN Pain Score 4-6, Start date: 06/19/15 18:46:00, Duration: 30 day, Stop date: 07/19/15 18:45:00 Xopenex HFA 2014- No 2 puff, Mem oria 1-17 Route: l 00:46: INHALATION Derek 00 , Dosing Weight 76.818, kg, Q4H, PRN Wheezing, Start date: 06/19/15 18:46:00, Duration: 30 day, Stop date: 07/19/15 18:45:00 Flexeril 2014-08 No Notes: Memoria 1-17 (Same As: l 00:46: Flexeril) [place] 00 meloxicam 2014-08 No 7.5 mg, Memor ia 1-17 Route: PO, l 00:46: Drug form: Derek 00 TAB, Daily, Dosing Weight 76.818, kg, PRN Pain Score 4-6, Start date: 06/19/15 18:46:00, Duration: 30 day, Stop date: 07/19/15 18:45:00 Xopenex HFA 2014-1 No 2 puff, Mem oria 1-17 Route: l 00:46: INHALATION [place] 00 , Dosing Weight 76.818, kg, Q4H, PRN Wheezing, Start date: 06/19/15 18:46:00, Duration: 30 day, Stop date: 07/19/15 18:45:00 Flexeril 2014-08 No Notes: Memoria 1-17 (Same As: l 00:46: Flexeril) Derek 00 Protonix 2014-08 No Notes: Memoria 1-16 Tablet l 22:30: should not Derek 00 be chewed or crushed. (Same as: Protonix) Protonix 2014-08 No Notes: Memoria 1-16 Tablet l 22:30: should not Derek 00 be chewed or crushed. (Same as: Protonix) Protonix 2014-08 No Notes: Memoria 1-16 Tablet l 22:30: should not [place] 00 be chewed or crushed. (Same as: Protonix) Protonix 2014-08 No Notes: Memoria 1-16 Tablet l 22:30: should not [place] 00 be chewed or crushed. (Same as: Protonix) Protonix 2014-08 No Notes: Memoria 1-16 Tablet l 22:30: should not Derek 00 be chewed or crushed. (Same as: Protonix) Protonix 2014-08 No Notes: Memoria 1-16 Tablet l 22:30: should not [place] 00 be chewed or crushed. (Same as: Protonix) Protonix 2014-08 No Notes: Memoria 1-16 Tablet l 22:30: should not [place] 00 be chewed or crushed. (Same as: Protonix) Protonix 2014-08 No Notes: Memoria 1-16 Tablet l 22:30: should not [place] 00 be chewed or crushed. (Same as: Protonix) Cyclobenzap 2014-08 Yes 10 mg = 1 M emoria rine 1-16 tab, PO, l hydrochlori 22:28: Daily, PRN Derek de 10 MG 00 as needed Oral Tablet for muscle [Flexeril] spasm, 0 Refill(s) Cyclobenzap 2014-08 Yes 10 mg = 1 M emoria rine 1-16 tab, PO, l hydrochlori 22:28: Daily, PRN [place] de 10 MG 00 as needed Oral Tablet for muscle [Flexeril] spasm, 0 Refill(s) Flexeril 10 2014-08 Yes 10 mg = 1 M emoria mg oral 1-16 tab, PO, l tablet 22:28: Daily, PRN Anahi nn 00 as needed for muscle spasm, 0 Refill(s) Flexeril 2014-08 Yes 10 mg = 1 M emoria mg oral 1-16 tab, PO, l tablet 22:28: Daily, PRN Anahi nn 00 as needed for muscle spasm, 0 Refill(s) Cyclobenzap 2014-08 Yes 10 mg = 1 M emoria rine 1-16 tab, PO, l hydrochlori 22:28: Daily, PRN Derek de 10 MG 00 as needed Oral Tablet for muscle [Flexeril] spasm, 0 Refill(s) Flexeril 2014-08 Yes 10 mg = 1 M emoria mg oral 1-16 tab, PO, l tablet 22:28: Daily, PRN Anahi nn 00 as needed for muscle spasm, 0 Refill(s) Cyclobenzap 2014-08 Yes 10 mg = 1 M emoria rine 1-16 tab, PO, l hydrochlori 22:28: Daily, PRN Derek de 10 MG 00 as needed Oral Tablet for muscle [Flexeril] spasm, 0 Refill(s) Flexeril 2014-08 Yes 10 mg = 1 M emoria mg oral 1-16 tab, PO, l tablet 22:28: Daily, PRN Anahi nn 00 as needed for muscle spasm, 0 Refill(s) Cyclobenzap 2014-08 Yes 10 mg = 1 M emoria rine 1-16 tab, PO, l hydrochlori 22:28: Daily, PRN [place] de 10 MG 00 as needed Oral Tablet for muscle [Flexeril] spasm, 0 Refill(s) Flexeril 2014-08 Yes 10 mg = 1 M emoria mg oral 1-16 tab, PO, l tablet 22:28: Daily, PRN Anahi nn 00 as needed for muscle spasm, 0 Refill(s) Cyclobenzap 2014-08 Yes 10 mg = 1 M emoria rine 1-16 tab, PO, l hydrochlori 22:28: Daily, PRN [place] de 10 MG 00 as needed Oral Tablet for muscle [Flexeril] spasm, 0 Refill(s) Flexeril 2014-08 Yes 10 mg = 1 M emoria mg oral 1-16 tab, PO, l tablet 22:28: Daily, PRN Anahi nn 00 as needed for muscle spasm, 0 Refill(s) Cyclobenzap 2014-08 Yes 10 mg = 1 M emoria rine 1-16 tab, PO, l hydrochlori 22:28: Daily, PRN [place] de 10 MG 00 as needed Oral Tablet for muscle [Flexeril] spasm, 0 Refill(s) Flexeril 10 2014-08 Yes 10 mg = 1 M emoria mg oral 1-16 tab, PO, l tablet 22:28: Daily, PRN Anahi nn 00 as needed for muscle spasm, 0 Refill(s) Cyclobenzap 2014-08 Yes 10 mg = 1 M emoria rine 1-16 tab, PO, l hydrochlori 22:28: Daily, PRN [place] de 10 MG 00 as needed Oral Tablet for muscle [Flexeril] spasm, 0 Refill(s) Omeprazole 2014-08 Yes 40 mg = 1 Me moria 40 MG 1-16 cap, PO, l Enteric 22:27: Daily, 0 Haris n Coated 00 Refill(s) Capsule [Prilosec] gabapentin 2014-08 Yes 300 mg = 1 M emoria 300 MG Oral 1-16 cap, PO, l Capsule 22:27: BID, 0 [place] 00 Refill(s) Acetaminoph 2014-08 Yes 1 tab, PO, Memoria en 325 MG / 1-16 TID, PRN l Hydrocodone 22:27: Pain Score [place] Bitartrate 00 6-10, 0 10 MG Oral Refill(s) Tablet [[place] 10/325] Omeprazole 2014-08 Yes 40 mg = 1 Me moria 40 MG 1-16 cap, PO, l Enteric 22:27: Daily, 0 Haris n Coated 00 Refill(s) Capsule [Prilosec] gabapentin 2014-08 Yes 300 mg = 1 M emoria 300 MG Oral 1-16 cap, PO, l Capsule 22:27: BID, 0 [place] 00 Refill(s) Acetaminoph 2014-08 Yes 1 tab, PO, Memoria en 325 MG / 1-16 TID, PRN l Hydrocodone 22:27: Pain Score [place] Bitartrate 00 6-10, 0 10 MG Oral Refill(s) Tablet [[place] 10/325] [place] 2014-08 Yes 1 tab, PO, Memori a 10/325 oral 1-16 TID, PRN l tablet 22:27: Pain Score Anahi nn 00 6-10, 0 Refill(s) [place] 2014-08 Yes 1 tab, PO, Memori a 10/325 oral 1-16 TID, PRN l tablet 22:27: Pain Score An[place] nn 00 6-10, 0 Refill(s) Omeprazole 2014-08 Yes 40 mg = 1 Me moria 40 MG 1-16 cap, PO, l Enteric 22:27: Daily, 0 [place]is n Coated 00 Refill(s) Capsule [Prilosec] gabapentin 2014-08 Yes 300 mg = 1 M emoria 300 MG Oral 1-16 cap, PO, l Capsule 22:27: BID, 0 [place] 00 Refill(s) Acetaminoph 2014-08 Yes 1 tab, PO, Memoria en 325 MG / 1-16 TID, PRN l Hydrocodone 22:27: Pain Score [place] Bitartrate 00 6-10, 0 10 MG Oral Refill(s) Tablet [[place] 10/325] [place] 2014-08 Yes 1 tab, PO, Memori a 10/325 oral 1-16 TID, PRN l tablet 22:27: Pain Score Anahi nn 00 6-10, 0 Refill(s) Omeprazole 2014-08 Yes 40 mg = 1 Me moria 40 MG 1-16 cap, PO, l Enteric 22:27: Daily, 0 [place] n Coated 00 Refill(s) Capsule [Prilosec] gabapentin 2014-08 Yes 300 mg = 1 M emoria 300 MG Oral 1-16 cap, PO, l Capsule 22:27: BID, 0 [place] 00 Refill(s) Acetaminoph 2014-08 Yes 1 tab, PO, Memoria en 325 MG / 1-16 TID, PRN l Hydrocodone 22:27: Pain Score [place] Bitartrate 00 6-10, 0 10 MG Oral Refill(s) Tablet [[place] 10/325] [place] 2014-08 Yes 1 tab, PO, Memori a 10/325 oral 1-16 TID, PRN l tablet 22:27: Pain Score An[place] nn 00 6-10, 0 Refill(s) Omeprazole 2014-08 Yes 40 mg = 1 Me moria 40 MG 1-16 cap, PO, l Enteric 22:27: Daily, 0 Haris n Coated 00 Refill(s) Capsule [Prilosec] gabapentin 2014-08 Yes 300 mg = 1 M emoria 300 MG Oral 1-16 cap, PO, l Capsule 22:27: BID, 0 [place] 00 Refill(s) Acetaminoph 2014-08 Yes 1 tab, PO, Memoria en 325 MG / 1-16 TID, PRN l Hydrocodone 22:27: Pain Score Derek Bitartrate 00 6-10, 0 10 MG Oral Refill(s) Tablet [[place] 10/325] [place] 2014-08 Yes 1 tab, PO, Memori a 10/325 oral 1-16 TID, PRN l tablet 22:27: Pain Score Anahi nn 00 6-10, 0 Refill(s) Omeprazole 2014-08 Yes 40 mg = 1 Me moria 40 MG 1-16 cap, PO, l Enteric 22:27: Daily, 0 Haris n Coated 00 Refill(s) Capsule [Prilosec] gabapentin 2014-08 Yes 300 mg = 1 M emoria 300 MG Oral 1-16 cap, PO, l Capsule 22:27: BID, 0 Derek 00 Refill(s) Acetaminoph 2014-08 Yes 1 tab, PO, Memoria en 325 MG / 1-16 TID, PRN l Hydrocodone 22:27: Pain Score [place] Bitartrate 00 6-10, 0 10 MG Oral Refill(s) Tablet [[place] 10/325] [place] 2014-08 Yes 1 tab, PO, Memori a 10/325 oral 1-16 TID, PRN l tablet 22:27: Pain Score Anahi nn 00 6-10, 0 Refill(s) Omeprazole 2014-08 Yes 40 mg = 1 Me moria 40 MG 1-16 cap, PO, l Enteric 22:27: Daily, 0 Haris n Coated 00 Refill(s) Capsule [Prilosec] gabapentin 2014-08 Yes 300 mg = 1 M emoria 300 MG Oral 1-16 cap, PO, l Capsule 22:27: BID, 0 Derek 00 Refill(s) Acetaminoph 2014-08 Yes 1 tab, PO, Memoria en 325 MG / 1-16 TID, PRN l Hydrocodone 22:27: Pain Score Derek Bitartrate 00 6-10, 0 10 MG Oral Refill(s) Tablet [[place] 10/325] [place] 2014-08 Yes 1 tab, PO, Memori a 10/325 oral 1-16 TID, PRN l tablet 22:27: Pain Score Anahi nn 00 6-10, 0 Refill(s) Omeprazole 2014-08 Yes 40 mg = 1 Me moria 40 MG 1-16 cap, PO, l Enteric 22:27: Daily, 0 Haris n Coated 00 Refill(s) Capsule [Prilosec] gabapentin 2014-08 Yes 300 mg = 1 M emoria 300 MG Oral 1-16 cap, PO, l Capsule 22:27: BID, 0 [place] 00 Refill(s) Acetaminoph 2014-08 Yes 1 tab, PO, Memoria en 325 MG / 1-16 TID, PRN l Hydrocodone 22:27: Pain Score [place] Bitartrate 00 6-10, 0 10 MG Oral Refill(s) Tablet [[place] 10/325] meloxicam 2014-08 Yes 7.5 mg = 1 Me moria 7.5 mg oral 1-16 tab, PO, l tablet 22:26: Daily, PRN An[place] nn 00 Pain Score 4-6, 0 Refill(s) canaglifloz 2014-08 Yes 300 mg = 1 Memoria in 300 MG 1-16 tab, PO, l Oral Tablet 22:26: Daily, 0 [place] [Invokana] 00 Refill(s) meloxicam 2014-08 Yes 7.5 mg = 1 Me moria 7.5 mg oral 1-16 tab, PO, l tablet 22:26: Daily, PRN An[place] nn 00 Pain Score 4-6, 0 Refill(s) canaglifloz 2014-08 Yes 300 mg = 1 Memoria in 300 MG 1-16 tab, PO, l Oral Tablet 22:26: Daily, 0 He r[place] [Invokana] 00 Refill(s) Invokana 2014-08 Yes 300 mg = 1 Mem oria 300 mg oral 1-16 tab, PO, l tablet 22:26: Daily, 0 [place] 00 Refill(s) Invokana 2014-08 Yes 300 mg = 1 Mem oria 300 mg oral 1-16 tab, PO, l tablet 22:26: Daily, 0 [place] 00 Refill(s) meloxicam 2014-08 Yes 7.5 mg = 1 Me moria 7.5 mg oral 1-16 tab, PO, l tablet 22:26: Daily, PRN [place] nn 00 Pain Score 4-6, 0 Refill(s) canaglifloz 2014-08 Yes 300 mg = 1 Memoria in 300 MG 1-16 tab, PO, l Oral Tablet 22:26: Daily, 0 [place] r[place] [Invokana] 00 Refill(s) Invokana 2014-08 Yes 300 mg = 1 Mem oria 300 mg oral 1-16 tab, PO, l tablet 22:26: Daily, 0 [place] 00 Refill(s) meloxicam 2014-08 Yes 7.5 mg = 1 Me moria 7.5 mg oral 1-16 tab, PO, l tablet 22:26: Daily, PRN Anahi nn 00 Pain Score 4-6, 0 Refill(s) canaglifloz 2014-08 Yes 300 mg = 1 Memoria in 300 MG 1-16 tab, PO, l Oral Tablet 22:26: Daily, 0 [place] [Invokana] 00 Refill(s) Invokana 2014-08 Yes 300 mg = 1 Mem oria 300 mg oral 1-16 tab, PO, l tablet 22:26: Daily, 0 Derek 00 Refill(s) meloxicam 2014-08 Yes 7.5 mg = 1 Me moria 7.5 mg oral 1-16 tab, PO, l tablet 22:26: Daily, PRN [place] nn 00 Pain Score 4-6, 0 Refill(s) canaglifloz 2014-08 Yes 300 mg = 1 Memoria in 300 MG 1-16 tab, PO, l Oral Tablet 22:26: Daily, 0 [place] [Invokana] 00 Refill(s) Invokana 2014-08 Yes 300 mg = 1 Mem oria 300 mg oral 1-16 tab, PO, l tablet 22:26: Daily, 0 Derek 00 Refill(s) meloxicam 2014-08 Yes 7.5 mg = 1 Me moria 7.5 mg oral 1-16 tab, PO, l tablet 22:26: Daily, PRN Anahi nn 00 Pain Score 4-6, 0 Refill(s) canaglifloz 2014-08 Yes 300 mg = 1 Memoria in 300 MG 1-16 tab, PO, l Oral Tablet 22:26: Daily, 0 [place] [Invokana] 00 Refill(s) Invokana 2014-08 Yes 300 mg = 1 Mem oria 300 mg oral 1-16 tab, PO, l tablet 22:26: Daily, 0 [place] 00 Refill(s) meloxicam 2014-08 Yes 7.5 mg = 1 Me moria 7.5 mg oral 1-16 tab, PO, l tablet 22:26: Daily, PRN Anahi nn 00 Pain Score 4-6, 0 Refill(s) canaglifloz 2014-08 Yes 300 mg = 1 Memoria in 300 MG 1-16 tab, PO, l Oral Tablet 22:26: Daily, 0 [place] [Invokana] 00 Refill(s) Invokana 2014-08 Yes 300 mg = 1 Mem oria 300 mg oral 1-16 tab, PO, l tablet 22:26: Daily, 0 [place] 00 Refill(s) meloxicam 2014-08 Yes 7.5 mg = 1 Me moria 7.5 mg oral 1-16 tab, PO, l tablet 22:26: Daily, PRN Anahi nn 00 Pain Score 4-6, 0 Refill(s) canaglifloz 2014-08 Yes 300 mg = 1 Memoria in 300 MG 1-16 tab, PO, l Oral Tablet 22:26: Daily, 0 [place] r[place] [Invokana] 00 Refill(s) Xopenex HFA 2014-08 Yes 2 puff, Mem oria 1-16 INHALATION l 22:25: , Q4H, PRN Derek 00 as needed for wheezing, 0 Refill(s) Xopenex HFA 2014-08 Yes 2 puff, Mem oria 1-16 INHALATION l 22:25: , Q4H, PRN [place] 00 as needed for wheezing, 0 Refill(s) Xopenex HFA 2014-08 Yes 2 puff, Mem oria 1-16 INHALATION l 22:25: , Q4H, PRN [place] 00 as needed for wheezing, 0 Refill(s) Xopenex HFA 2014-08 Yes 2 puff, Mem oria 1-16 INHALATION l 22:25: , Q4H, PRN [place] 00 as needed for wheezing, 0 Refill(s) Xopenex HFA 2014-08 Yes 2 puff, Mem oria 1-16 INHALATION l 22:25: , Q4H, PRN [place] 00 as needed for wheezing, 0 Refill(s) Xopenex HFA 2014-08 Yes 2 puff, Mem oria 1-16 INHALATION l 22:25: , Q4H, PRN [place] 00 as needed for wheezing, 0 Refill(s) Xopenex HFA 2014-08 Yes 2 puff, Mem oria 1-16 INHALATION l 22:25: , Q4H, PRN Derek 00 as needed for wheezing, 0 Refill(s) Xopenex HFA 2014-08 Yes 2 puff, Mem oria 1-16 INHALATION l 22:25: , Q4H, PRN Derek 00 as needed for wheezing, 0 Refill(s) 1.5 ML 2014-08 Yes 60 unit, Memoria Insulin 1-16 SUB-Q, l [place] 22:23: QPM, 0 Derek 300 UNT/ML 00 Refill(s) Prefilled Syringe [Toujeo] 1.5 ML 2014-08 Yes 60 unit, Memoria Insulin 1-16 SUB-Q, l [place] 22:23: QPM, 0 [place] 300 UNT/ML 00 Refill(s) Prefilled Syringe [Toujeo] 2014-08 Yes 60 unit, Memoria SoloStar 1-16 SUB-Q, l 300 22:23: QPM, 0 [place] units/mL 00 Refill(s) subcutaneou s solution 2014-08 Yes 60 unit, Memoria SoloStar 1-16 SUB-Q, l 300 22:23: QPM, 0 Derek units/mL 00 Refill(s) subcutaneou s solution 1.5 ML 2014-08 Yes 60 unit, Memoria Insulin 1-16 SUB-Q, l [place] 22:23: QPM, 0 Derek 300 UNT/ML 00 Refill(s) Prefilled Syringe [Toujeo] 2014-08 Yes 60 unit, Memoria SoloStar 1-16 SUB-Q, l 300 22:23: QPM, 0 [place] units/mL 00 Refill(s) subcutaneou s solution 1.5 ML 2014-08 Yes 60 unit, Memoria Insulin 1-16 SUB-Q, l [place] 22:23: QPM, 0 Derek 300 UNT/ML 00 Refill(s) Prefilled Syringe [Toujeo] 2014-08 Yes 60 unit, Memoria SoloStar 1-16 SUB-Q, l 300 22:23: QPM, 0 Derek units/mL 00 Refill(s) subcutaneou s solution 1.5 ML 2014-08 Yes 60 unit, Memoria Insulin 1-16 SUB-Q, l [place] 22:23: QPM, 0 [place] 300 UNT/ML 00 Refill(s) Prefilled Syringe [Toujeo] 2014-08 Yes 60 unit, Memoria [place]Star 1-16 SUB-Q, l 300 22:23: QPM, 0 [place] units/mL 00 Refill(s) subcutaneou s solution 1.5 ML 2014-08 Yes 60 unit, Memoria Insulin 1-16 SUB-Q, l [place] 22:23: QPM, 0 Derek 300 UNT/ML 00 Refill(s) Prefilled Syringe [Toujeo] 2014-08 Yes 60 unit, Memoria SoloStar 1-16 SUB-Q, l 300 22:23: QPM, 0 [place] units/mL 00 Refill(s) subcutaneou s solution 1.5 ML 2014-08 Yes 60 unit, Memoria Insulin 1-16 SUB-Q, l [place] 22:23: QPM, 0 Derek 300 UNT/ML 00 Refill(s) Prefilled Syringe [Toujeo] 2014-08 Yes 60 unit, Memoria SoloStar 1-16 SUB-Q, l 300 22:23: QPM, 0 Derek units/mL 00 Refill(s) subcutaneou s solution 1.5 ML 2014-08 Yes 60 unit, Memoria Insulin 1-16 SUB-Q, l [place] 22:23: QPM, 0 [place] 300 UNT/ML 00 Refill(s) Prefilled Syringe [Toujeo] 0.5 ML 2014-08 Yes 50 mg, Memoria albiglutide 1-16 SUB-Q, l 100 MG/ML 22:22: QMon, 0 [place] nn Prefilled 00 Refill(s) Syringe [Tanzeum] 0.5 ML 2014-08 Yes 50 mg, Memoria albiglutide 1-16 SUB-Q, l 100 MG/ML 22:22: QMon, 0 [place] nn Prefilled 00 Refill(s) Syringe [Tanzeum] 0.5 ML 2014-08 Yes 50 mg, Memoria albiglutide 1-16 SUB-Q, l 100 MG/ML 22:22: QMon, 0 An[place] nn Prefilled 00 Refill(s) Syringe [Tanzeum] 0.5 ML 2014-08 Yes 50 mg, Memoria albiglutide 1-16 SUB-Q, l 100 MG/ML 22:22: QMon, 0 [place] nn Prefilled 00 Refill(s) Syringe [Tanzeum] 0.5 ML 2014-08 Yes 50 mg, Memoria albiglutide 1-16 SUB-Q, l 100 MG/ML 22:22: QMon, 0 [place] nn Prefilled 00 Refill(s) Syringe [Tanzeum] 0.5 ML 2014-08 Yes 50 mg, Memoria albiglutide 1-16 SUB-Q, l 100 MG/ML 22:22: QMon, 0 [place] nn Prefilled 00 Refill(s) Syringe [Tanzeum] 0.5 ML 2014-08 Yes 50 mg, Memoria albiglutide 1-16 SUB-Q, l 100 MG/ML 22:22: QMon, 0 [place] nn Prefilled 00 Refill(s) Syringe [Tanzeum] 0.5 ML 2014-08 Yes 50 mg, Memoria albiglutide 1-16 SUB-Q, l 100 MG/ML 22:22: QMon, 0 [place] nn Prefilled 00 Refill(s) Syringe [Tanzeum] lisinopril 2014-08 Yes 40 mg = 1 Me moria 40 mg oral 1-16 tab, PO, l tablet 22:21: QPM, 0 Derek 00 Refill(s) Simvastatin 2014-08 Yes 10 mg = 1 M emoria 10 MG Oral 1-16 tab, PO, l Tablet 22:21: Bedtime, 0 Anahi nn [Zocor] 00 Refill(s) Simvastatin 2014-08 Yes 10 mg = 1 M emoria 10 MG Oral 1-16 tab, PO, l Tablet 22:21: Bedtime, 0 Anahi nn [Zocor] 00 Refill(s) lisinopril 2014-08 Yes 40 mg = 1 Me moria 40 mg oral 1-16 tab, PO, l tablet 22:21: QPM, 0 Derek 00 Refill(s) Zocor 10 mg 2014-08 Yes 20 mg = 2 M emoria oral tablet 1-16 tab, PO, l 22:21: Bedtime, 0 [place] 00 Refill(s) lisinopril 2014-08 Yes 40 mg = 1 Me moria 40 mg oral 1-16 tab, PO, l tablet 22:21: QPM, 0 [place] 00 Refill(s) Zocor 10 mg 2014-08 Yes 20 mg = 2 M emoria oral tablet 1-16 tab, PO, l 22:21: Bedtime, 0 Derek 00 Refill(s) Simvastatin 2014-08 Yes 10 mg = 1 M emoria 10 MG Oral 1-16 tab, PO, l Tablet 22:21: Bedtime, 0 Anahi nn [Zocor] 00 Refill(s) lisinopril 2014-08 Yes 40 mg = 1 Me moria 40 mg oral 1-16 tab, PO, l tablet 22:21: QPM, 0 [place] 00 Refill(s) Zocor 10 mg 2014-08 Yes 20 mg = 2 M emoria oral tablet 1-16 tab, PO, l 22:21: Bedtime, 0 Derek 00 Refill(s) Simvastatin 2014-08 Yes 10 mg = 1 M emoria 10 MG Oral 1-16 tab, PO, l Tablet 22:21: Bedtime, 0 Anahi nn [Zocor] 00 Refill(s) lisinopril 2014-08 Yes 40 mg = 1 Me moria 40 mg oral 1-16 tab, PO, l tablet 22:21: QPM, 0 [place] 00 Refill(s) Zocor 10 mg 2014-08 Yes 20 mg = 2 M emoria oral tablet 1-16 tab, PO, l 22:21: Bedtime, 0 Derek 00 Refill(s) Simvastatin 2014-08 Yes 10 mg = 1 M emoria 10 MG Oral 1-16 tab, PO, l Tablet 22:21: Bedtime, 0 Anahi nn [Zocor] 00 Refill(s) lisinopril 2014-08 Yes 40 mg = 1 Me moria 40 mg oral 1-16 tab, PO, l tablet 22:21: QPM, 0 [place] 00 Refill(s) Zocor 10 mg 2014-08 Yes 20 mg = 2 M emoria oral tablet 1-16 tab, PO, l 22:21: Bedtime, 0 [place] 00 Refill(s) Simvastatin 2014-08 Yes 10 mg = 1 M emoria 10 MG Oral 1-16 tab, PO, l Tablet 22:21: Bedtime, 0 Anahi nn [Zocor] 00 Refill(s) lisinopril 2014-08 Yes 40 mg = 1 Me moria 40 mg oral 1-16 tab, PO, l tablet 22:21: QPM, 0 Derek 00 Refill(s) Zocor 10 mg 2014-08 Yes 20 mg = 2 M emoria oral tablet 1-16 tab, PO, l 22:21: Bedtime, 0 [place] 00 Refill(s) Simvastatin 2014-08 Yes 10 mg = 1 M emoria 10 MG Oral 1-16 tab, PO, l Tablet 22:21: Bedtime, 0 Anahi nn [Zocor] 00 Refill(s) lisinopril 2014-08 Yes 40 mg = 1 Me moria 40 mg oral 1-16 tab, PO, l tablet 22:21: QPM, 0 [place] 00 Refill(s) Zocor 10 mg 2014-08 Yes 20 mg = 2 M emoria oral tablet 1-16 tab, PO, l 22:21: Bedtime, 0 Derek 00 Refill(s) Simvastatin 2014-08 Yes 10 mg = 1 M emoria 10 MG Oral 1-16 tab, PO, l Tablet 22:21: Bedtime, 0 Anahi nn [Zocor] 00 Refill(s) Insulin, 2014-08 No Notes: Memoria Aspart, 1-16 Roll in l Human 21:03: palms of [place] 00 hands gently; Do not shake vigorously [...] Duration: 30 day, Stop date: 07/19/15 15:02:00 Insulin, 2014-08 No Notes: Memoria Aspart, 1-16 Roll in l Human 21:03: palms of [place] 00 hands gently; Do not shake vigorously [...] 1-16 Route: IM, l 21:03: Drug form: [place] 00 PDR/INJ, PRN, Dosing Weight 76.818, kg, PRN Blood Glucose Results, Start date: 06/19/15 15:03:00, Duration: 30 day, Stop date: 07/19/15 15:02:00 Insulin, 2014-08 No Notes: Memoria Aspart, 1-16 Roll in l Human 21:03: palms of [place] 00 hands gently; Do not shake vigorously [...] 1-16 Route: IM, l 21:03: Drug form: [place] 00 PDR/INJ, PRN, Dosing Weight 76.818, kg, PRN Blood Glucose Results, Start date: 06/19/15 15:03:00, Duration: 30 day, Stop date: 07/19/15 15:02:00 Insulin, 2014-08 No Notes: Memoria Aspart, 1-16 Roll in l Human 21:03: palms of [place] 00 hands gently; Do not shake vigorously . (Same as: NovoLOG) "single patient use only" Stable for 28 days at room temperatur e. Expires in days from ____Date Dextrose 2014-08 No 25 gm, 50 [place] vanna 50% Syringe 1-16 mL, Route: l 21:03: IVP, Drug [place] 00 Form: INJ, Dosing Weight 76.818, kg, PRN, PRN Blood Glucose Results, Start date: 06/19/15 15:03:00, Duration: 30 day, Stop date: 07/19/15 15:02:00 Glucagon 2014-08 No 1 mg, Memoria 1-16 Route: IM, l 21:03: Drug form: [place] 00 PDR/INJ, PRN, Dosing Weight 76.818, kg, PRN Blood Glucose Results, Start date: 06/19/15 15:03:00, Duration: 30 day, Stop date: 07/19/15 15:02:00 Insulin, 2014-08 No Notes: Memoria Aspart, 1-16 Roll in l Human 21:03: palms of [place] 00 hands gently; Do not shake vigorously [...] 1-16 Route: IM, l 21:03: Drug form: [place] 00 PDR/INJ, PRN, Dosing Weight 76.818, kg, PRN Blood Glucose Results, Start date: 06/19/15 15:03:00, Duration: 30 day, Stop date: 07/19/15 15:02:00 Insulin, 2014-08 No Notes: Memoria Aspart, 1-16 Roll in l Human 21:03: palms of [place] 00 hands gently; Do not shake vigorously [...] Duration: 30 day, Stop date: 07/19/15 15:02:00 Insulin, 2014-08 No Notes: Memoria Aspart, 1-16 Roll in l Human 21:03: palms of Derek 00 hands gently; Do not shake vigorously [...] 15:02:00 Glucagon 2014-08 No 1 mg, Memoria 116 Route: IM, l 21:03: Drug form: [place] 00 PDR/INJ, PRN, Dosing Weight 76.818, kg, PRN Blood Glucose Results, Start date: 06/19/15 15:03:00, Duration: 30 day, Stop date: 07/19/15 15:02:00 Insulin, 2014-08 No Notes: Memoria Aspart, 1-16 Roll in l Human 21:03: palms of [place] 00 hands gently; Do not shake vigorously [...] 1-16 Route: IM, l 21:03: Drug form: [place] 00 PDR/INJ, PRN, Dosing Weight 76.818, kg, PRN Blood Glucose Results, Start date: 06/19/15 15:03:00, Duration: 30 day, Stop date: 07/19/15 15:02:00 Sodium 2014-08 No 1,000 mL, Memori a Chloride 1-16 Rate: 150 l 0.154 21:02: ml/hr, [place] MEQ/ML 00 Infuse Injectable over: 6.7 Solution hr, Route: IV, Dosing Weight 76.818 kg, Total Volume: 1,000, Start date: 06/19/15 15:02:00, Duration: 30 day, Stop date: 07/19/15 15:01:00 Sodium 2015-1 No 1,000 mL, Memori a Chloride 1-16 Rate: 150 l 0.154 21:02: ml/hr, [place] MEQ/ML 00 Infuse Injectable over: 6.7 Solution hr, Route: IV, Dosing Weight 76.818 kg, Total Volume: 1,000, Start date: 06/19/15 15:02:00, Duration: 30 day, Stop date: 07/19/15 15:01:00 Sodium 2015-1 No 1,000 mL, Memori a Chloride 1-16 Rate: 150 l 0.154 21:02: ml/hr, [place] MEQ/ML 00 Infuse Injectable over: 6.7 Solution hr, Route: IV, Dosing Weight 76.818 kg, Total Volume: 1,000, Start date: 06/19/15 15:02:00, Duration: 30 day, Stop date: 07/19/15 15:01:00 Sodium 2015-1 No 1,000 mL, Memori a Chloride 1-16 Rate: 150 l 0.154 21:02: ml/hr, Derek MEQ/ML 00 Infuse Injectable over: 6.7 Solution hr, Route: IV, Dosing Weight 76.818 kg, Total Volume: 1,000, Start date: 06/19/15 15:02:00, Duration: 30 day, Stop date: 07/19/15 15:01:00 Sodium 2015-1 No 1,000 mL, Memori a Chloride 1-16 Rate: 150 l 0.154 21:02: ml/hr, [place] MEQ/ML 00 Infuse Injectable over: 6.7 Solution hr, Route: IV, Dosing Weight 76.818 kg, Total Volume: 1,000, Start date: 06/19/15 15:02:00, Duration: 30 day, Stop date: 07/19/15 15:01:00 Sodium 2014-1 No 1,000 mL, Memori a Chloride 1-16 Rate: 150 l 0.154 21:02: ml/hr, Derek MEQ/ML 00 Infuse Injectable over: 6.7 Solution hr, Route: IV, Dosing Weight 76.818 kg, Total Volume: 1,000, Start date: 06/19/15 15:02:00, Duration: 30 day, Stop date: 07/19/15 15:01:00 Sodium 2014-08 No 1,000 mL, Memori a Chloride 1-16 Rate: 150 l 0.154 21:02: ml/hr, [place] MEQ/ML 00 Infuse Injectable over: 6.7 Solution hr, Route: IV, Dosing Weight 76.818 kg, Total Volume: 1,000, Start date: 06/19/15 15:02:00, Duration: 30 day, Stop date: 07/19/15 15:01:00 Sodium 2014-08 No 1,000 mL, Memori a Chloride 1-16 Rate: 150 l 0.154 21:02: ml/hr, [place] MEQ/ML 00 Infuse Injectable over: 6.7 Solution hr, Route: IV, Dosing Weight 76.818 kg, Total Volume: 1,000, Start date: 06/19/15 15:02:00, Duration: 30 day, Stop date: 07/19/15 15:01:00 Flagyl 2014-08 No Notes: Memoria 1-16 (Same as: l 21:00: Flagyl) Derek 00 Avoid alcohol. Cipro 2014-08 No Notes: Do Memoria 1-16 not l 21:00: refrigerat Derek 00 e Sodium 2014-08 No 1,000 mL, Memori a Chloride 1-16 Rate: 125 l 0.154 21:00: ml/hr, Derek MEQ/ML 00 Infuse Injectable over: 8 Solution hr, Route: IV, Dosing Weight 76.818 kg, Total Volume: 1,000, Start date: 06/19/15 15:00:00, Duration: 30 day, Stop date: 07/19/15 14:59:00 Saline 2014-08 No Notes: Memoria Flush 0.9% 1-16 (Same as: l 21:00: BD [place] 00 Posiflush) Morphine 2014-08 No Notes: Memoria 1-16 (Same l 21:00: as:MORPhin [place] 00 e Sulfate) Ondansetron 2014-08 No Notes: [place] vanna -16 (Same as: l 21:00: Zofran) [place] 00 MEDICATION WASTE Product Size: 4 mg Product Wasted: ___ mg Docusate 2014-08 No Notes: Memoria 1-16 (Same as: l 21:00: Colace) Derek 00 (Do Not Crush) Acetaminoph 2014-08 No Notes: Do M emoria en -16 not exceed l 21:00: 4 gm/day. [place] 00 (Same as: Tylenol) Acetaminoph 2014-08 No Notes: [place] vanna en 325 MG / 16 (Same as: l Hydrocodone 21:00: [place] Anahi nn Bitartrate 00 325/5) Do 5 MG Oral not exceed Tablet 4gm/day of acetaminop hen. Flagyl 2014-08 No Notes: Memoria -16 (Same as: l 21:00: Flagyl) Derek 00 Avoid alcohol. Cipro 2014-08 No Notes: Do Memoria -16 not l 21:00: refrigerat [place] 00 e Sodium 2014-08 No 1,000 mL, Memori a Chloride 08-19 Rate: 125 l 0.154 21:00: ml/hr, [place] MEQ/ML 00 Infuse Injectable over: 8 Solution hr, Route: IV, Dosing Weight 76.818 kg, Total Volume: 1,000, Start date: 06/19/15 15:00:00, Duration: 30 day, Stop date: 07/19/15 14:59:00 Saline 2014-08 No Notes: Memoria Flush 0.9% 16 (Same as: l 21:00: BD Derek 00 Posiflush) Morphine 2014-08 No Notes: Memoria -16 (Same l 21:00: as:MORPhin [place] 00 e Sulfate) Ondansetron 2014-08 No Notes: [place] vanna -16 (Same as: l 21:00: Zofran) Derek 00 MEDICATION WASTE Product Size: 4 mg Product Wasted: ___ mg Docusate 2014-08 No Notes: Memoria 1-16 (Same as: l 21:00: Colace) [place] 00 (Do Not Crush) Acetaminoph 2014-08 No Notes: Do M emoria en -16 not exceed l 21:00: 4 gm/day. Derek 00 (Same as: Tylenol) Acetaminoph 2014-08 No Notes: [place] vanna en 325 MG / 08-19 (Same as: l Hydrocodone 21:00: [place] Anahi nn Bitartrate 00 325/5) Do 5 MG Oral not exceed Tablet 4gm/day of acetaminop hen. Flagyl 2014-08 No Notes: Memoria 1-16 (Same as: l 21:00: Flagyl) [place] 00 Avoid alcohol. Cipro 2014-08 No Notes: Do Memoria -16 not l 21:00: refrigerat [place] 00 e Sodium 2014-08 No 1,000 mL, Memori a Chloride 08-19 Rate: 125 l 0.154 21:00: ml/hr, [place] MEQ/ML 00 Infuse Injectable over: 8 Solution hr, Route: IV, Dosing Weight 76.818 kg, Total Volume: 1,000, Start date: 06/19/15 15:00:00, Duration: 30 day, Stop date: 07/19/15 14:59:00 Saline 2014-08 No Notes: Memoria Flush 0.9% 08-19 (Same as: l 21:00: BD Posiflush) Morphine 2014-08 No Notes: Memoria -16 (Same l 21:00: as:MORPhin e Sulfate) Ondansetron 2014-08 No Notes: [place] vanna -16 (Same as: l 21:00: Zofran) [place] 00 MEDICATION WASTE Product Size: 4 mg Product Wasted: ___ mg Docusate 2014-08 No Notes: Memoria 1-16 (Same as: l 21:00: Colace) [place] (Do Not Crush) Acetaminoph 2014-08 No Notes: Do M emoria en -16 not exceed l 21:00: 4 gm/day. [place] 00 (Same as: Tylenol) Acetaminoph 2014-08 No Notes: [place] vanna en 325 MG / 16 (Same as: l Hydrocodone 21:00: [place] Anahi nn Bitartrate 00 325/5) Do 5 MG Oral not exceed Tablet 4gm/day of acetaminop hen. Flagyl 2014-08 No Notes: Memoria 1-16 (Same as: l 21:00: Flagyl) Derek Avoid alcohol. Cipro 2014-08 No Notes: Do Memoria 1-16 not l 21:00: refrigerat Derek 00 e Sodium 2014-08 No 1,000 mL, Memori a Chloride 08-19 Rate: 125 l 0.154 21:00: ml/hr, Derek MEQ/ML 00 Infuse Injectable over: 8 Solution hr, Route: IV, Dosing Weight 76.818 kg, Total Volume: 1,000, Start date: 06/19/15 15:00:00, Duration: 30 day, Stop date: 07/19/15 14:59:00 Saline 2014-08 No Notes: [facility] Flush 0.9% 08-19 (Same as: l 21:00: BD [place] 00 Posiflush) Morphine 2014-08 No Notes: Memoria 1-16 (Same l 21:00: as:MORPhin Derek e Sulfate) Ondansetron 2014-08 No Notes: [place] vanna 1-16 (Same as: l 21:00: Zofran) MEDICATION WASTE Product Size: 4 mg Product Wasted: ___ mg Docusate 2014-08 No Notes: [facility]oria 1-16 (Same as: l 21:00: Colace) [place] (Do Not Crush) Acetaminoph 2014-08 No Notes: Do M emoria en -16 not exceed l 21:00: 4 gm/day. Derek (Same as: Tylenol) Acetaminoph 2014-08 No Notes: [place] vanna en 325 MG / -16 (Same as: l Hydrocodone 21:00: [place] nn Bitartrate 00 325/5) Do 5 MG Oral not exceed Tablet 4gm/day of acetaminop hen. Flagyl 2014-08 No Notes: Memoria 1-16 (Same as: l 21:00: Flagyl) [place] 00 Avoid alcohol. Cipro 2014-08 No Notes: Do Memoria 1-16 not l 21:00: refrigerat Derek 00 e Sodium 2014-08 No 1,000 mL, Memori a Chloride 16 Rate: 125 l 0.154 21:00: ml/hr, Derek MEQ/ML 00 Infuse Injectable over: 8 Solution hr, Route: IV, Dosing Weight 76.818 kg, Total Volume: 1,000, Start date: 06/19/15 15:00:00, Duration: 30 day, Stop date: 07/19/15 14:59:00 Saline 2014-08 No Notes: Memoria Flush 0.9% 1-16 (Same as: l 21:00: BD [place] 00 Posiflush) Morphine 2014-08 No Notes: Memoria 1-16 (Same l 21:00: as:MORPhin [place] 00 e Sulfate) Ondansetron 2014-08 No Notes: [place] vanna -16 (Same as: l 21:00: Zofran) Derek 00 MEDICATION WASTE Product Size: 4 mg Product Wasted: ___ mg Docusate 2014-08 No Notes: Memoria 1-16 (Same as: l 21:00: Colace) [place] 00 (Do Not Crush) Acetaminoph 2014-08 No Notes: Do M emoria en -16 not exceed l 21:00: 4 gm/day. Derek 00 (Same as: Tylenol) Acetaminoph 2014-08 No Notes: [place] vanna en 325 MG / - (Same as: l Hydrocodone 21:00: [place] nn Bitartrate 00 325/5) Do 5 MG Oral not exceed Tablet 4gm/day of acetaminop hen. Flagyl 2014-08 No Notes: Memoria -16 (Same as: l 21:00: Flagyl) [place] 00 Avoid alcohol. Cipro 2014-08 No Notes: Do Memoria 1-16 not l 21:00: refrigerat [place] 00 e Sodium 2014-08 No 1,000 mL, Memori a Chloride -16 Rate: 125 l 0.154 21:00: ml/hr, Derek MEQ/ML 00 Infuse Injectable over: 8 Solution hr, Route: IV, Dosing Weight 76.818 kg, Total Volume: 1,000, Start date: 06/19/15 15:00:00, Duration: 30 day, Stop date: 07/19/15 14:59:00 Saline 2014-08 No Notes: [facility]oria Flush 0.9% 1-16 (Same as: l 21:00: BD [place] 00 Posiflush) Morphine 2014-08 No Notes: Memoria -16 (Same l 21:00: as:MORPhin [place] 00 e Sulfate) Ondansetron 2014-08 No Notes: [place] vanna -16 (Same as: l 21:00: Zofran) Derek 00 MEDICATION WASTE Product Size: 4 mg Product Wasted: ___ mg Docusate 2014-08 No Notes: Memoria -16 (Same as: l 21:00: Colace) [place] 00 (Do Not Crush) Acetaminoph 2014-08 No Notes: Do M emoria en -16 not exceed l 21:00: 4 gm/day. Derek 00 (Same as: Tylenol) Acetaminoph 2014-08 No Notes: [place] vanna en 325 MG / 08-19 (Same as: l Hydrocodone 21:00: [place] nn Bitartrate 00 325/5) Do 5 MG Oral not exceed Tablet 4gm/day of acetaminop hen. Flagyl 2014-08 No Notes: Memoria -16 (Same as: l 21:00: Flagyl) [place] 00 Avoid alcohol. Cipro 2014-08 No Notes: Do Memoria -16 not l 21:00: refrigerat [place] 00 e Sodium 2014-08 No 1,000 mL, Memori a Chloride 08-19 Rate: 125 l 0.154 21:00: ml/hr, Derek MEQ/ML 00 Infuse Injectable over: 8 Solution hr, Route: IV, Dosing Weight 76.818 kg, Total Volume: 1,000, Start date: 06/19/15 15:00:00, Duration: 30 day, Stop date: 07/19/15 14:59:00 Saline 2014-08 No Notes: [facility]oria Flush 0.9% -16 (Same as: l 21:00: BD [place] 00 Posiflush) Morphine 2014-08 No Notes: [facility]oria 1-16 (Same l 21:00: as:MORPhin [place] 00 e Sulfate) Ondansetron 2014-08 No Notes: [place] v[place] -16 (Same as: l 21:00: Zofran) Derek 00 MEDICATION WASTE Product Size: 4 mg Product Wasted: ___ mg Docusate 2014-08 No Notes: [facility] 1-16 (Same as: l 21:00: Colace) [place] 00 (Do Not Crush) Acetaminoph 2014-08 No Notes: Do M emoria en -16 not exceed l 21:00: 4 gm/day. [place] 00 (Same as: Tylenol) Acetaminoph 2014-08 No Notes: [place] vanna en 325 MG / 08-19 (Same as: l Hydrocodone 21:00: [place] An[place] nn Bitartrate 00 325/5) Do 5 MG Oral not exceed Tablet 4gm/day of acetaminop hen. Flagyl 2014-08 No Notes: Memoria -16 (Same as: l 21:00: Flagyl) Derek Avoid alcohol. Cipro 2014-08 No Notes: Do [facility]oria -16 not l 21:00: refrigerat Derek 00 e Sodium 2014-08 No 1,000 mL, [facility] a Chloride 08-19 Rate: 125 l 0.154 21:00: ml/hr, Derek MEQ/ML 00 Infuse Injectable over: 8 Solution hr, Route: IV, Dosing Weight 76.818 kg, Total Volume: 1,000, Start date: 06/19/15 15:00:00, Duration: 30 day, Stop date: 07/19/15 14:59:00 Saline 2014-08 No Notes: [facility] Flush 0.9% 08-19 (Same as: l 21:00: BD [place] 00 Posiflush) Morphine 2014-08 No Notes: [facility] -16 (Same l 21:00: as:MORPhin [place] 00 e Sulfate) Ondansetron 2014-08 No Notes: [place] -16 (Same as: l 21:00: Zofran) [place] MEDICATION WASTE Product Size: 4 mg Product Wasted: ___ mg Docusate 2014-08 No Notes: [facility] 1-16 (Same as: l 21:00: Colace) Derek 00 (Do Not Crush) Acetaminoph 2014-08 No Notes: Do M emoria en -16 not exceed l 21:00: 4 gm/day. [place] 00 (Same as: Tylenol) Acetaminoph 2014-08 No Notes: [place] v[place] en 325 MG / 08-19 (Same as: l Hydrocodone 21:00: [place] Anahi nn Bitartrate 00 325/5) Do 5 MG Oral not exceed Tablet 4gm/day of acetaminop hen. Dilaudid 2014-08 No 0.5 mg, Memori a 1-16 0.5 mL, l 20:51: Route: [place] 00 IVP, Drug form: INJ, ONCE, Dosing Weight 76.818, kg, Priority: STAT, Start date: 06/19/15 14:51:00, Stop date: 06/19/15 14:51:00 Dilaudid 2014-08 No 0.5 mg, Memori a 1-16 0.5 mL, l 20:51: Route: [place] 00 IVP, Drug form: INJ, ONCE, Dosing Weight 76.818, kg, Priority: STAT, Start date: 06/19/15 14:51:00, Stop date: 06/19/15 14:51:00 Dilaudid 2014-08 No 0.5 mg, Memori a 1-16 0.5 mL, l 20:51: Route: Derek 00 IVP, Drug form: INJ, ONCE, Dosing Weight 76.818, kg, Priority: STAT, Start date: 06/19/15 14:51:00, Stop date: 06/19/15 14:51:00 Dilaudid 2014-08 No 0.5 mg, Memori a 1-16 0.5 mL, l 20:51: Route: Derek IVP, Drug form: INJ, ONCE, Dosing Weight 76.818, kg, Priority: STAT, Start date: 06/19/15 14:51:00, Stop date: 06/19/15 14:51:00 Dilaudid 2014-08 No 0.5 mg, Memori a 1-16 0.5 mL, l 20:51: Route: Derek 00 IVP, Drug form: INJ, ONCE, Dosing Weight 76.818, kg, Priority: STAT, Start date: 06/19/15 14:51:00, Stop date: 06/19/15 14:51:00 Dilaudid 2014-08 No 0.5 mg, Memori a 1-16 0.5 mL, l 20:51: Route: [place] 00 IVP, Drug form: INJ, ONCE, Dosing Weight 76.818, kg, Priority: STAT, Start date: 06/19/15 14:51:00, Stop date: 06/19/15 14:51:00 Dilaudid 2014- No 0.5 mg, Memori a 1-16 0.5 mL, l 20:51: Route: [place] 00 IVP, Drug form: INJ, ONCE, Dosing Weight 76.818, kg, Priority: STAT, Start date: 06/19/15 14:51:00, Stop date: 06/19/15 14:51:00 Dilaudid 2014- No 0.5 mg, Memori a 1-16 0.5 mL, l 20:51: Route: Derek 00 IVP, Drug form: INJ, ONCE, Dosing Weight 76.818, kg, Priority: STAT, Start date: 06/19/15 14:51:00, Stop date: 06/19/15 14:51:00 Ciprofloxac 2014- No 400 mg, Mem oria in 08-19 Route: l 20:46: IVPB, [place] 00 ONCE, Dosing Weight 76.818, kg, Priority: STAT, Start date: 06/19/15 14:46:00, Stop date: 06/19/15 14:46:00 Flagyl 2014-08 No 500 mg, Memoria 08-19 Route: l 20:46: IVPB, [place] 00 ONCE, Dosing Weight 76.818, kg, Priority: STAT, Start date: 06/19/15 14:46:00, Stop date: 06/19/15 14:46:00 Ciprofloxac 2014- No 400 mg, Mem oria in 08-19 Route: l 20:46: IVPB, Derek 00 ONCE, Dosing Weight 76.818, kg, Priority: STAT, Start date: 06/19/15 14:46:00, Stop date: 06/19/15 14:46:00 Flagyl 2014-08 No 500 mg, [facility]oria 08-19 Route: l 20:46: IVPB, Derek 00 ONCE, Dosing Weight 76.818, kg, Priority: STAT, Start date: 06/19/15 14:46:00, Stop date: 06/19/15 14:46:00 Ciprofloxac 2014- No 400 mg, Mem oria in 08-19 Route: l 20:46: IVPB, [place] 00 ONCE, Dosing Weight 76.818, kg, Priority: STAT, Start date: 06/19/15 14:46:00, Stop date: 06/19/15 14:46:00 Flagyl 2014-08 No 500 mg, Memoria 08-19 Route: l 20:46: IVPB, Derek 00 ONCE, Dosing Weight 76.818, kg, Priority: STAT, Start date: 06/19/15 14:46:00, Stop date: 06/19/15 14:46:00 Ciprofloxac 2014-08 No 400 mg, Mem oria in 08-19 Route: l 20:46: IVPB, [place] 00 ONCE, Dosing Weight 76.818, kg, Priority: STAT, Start date: 06/19/15 14:46:00, Stop date: 06/19/15 14:46:00 Flagyl 2014-08 No 500 mg, Memoria 08-19 Route: l 20:46: IVPB, Derek 00 ONCE, Dosing Weight 76.818, kg, Priority: STAT, Start date: 06/19/15 14:46:00, Stop date: 06/19/15 14:46:00 Ciprofloxac 2014-08 No 400 mg, Mem oria in 08-19 Route: l 20:46: IVPB, Derek 00 ONCE, Dosing Weight 76.818, kg, Priority: STAT, Start date: 06/19/15 14:46:00, Stop date: 06/19/15 14:46:00 Flagyl 2014-08 No 500 mg, Memoria 08-19 Route: l 20:46: IVPB, Derek 00 ONCE, Dosing Weight 76.818, kg, Priority: STAT, Start date: 06/19/15 14:46:00, Stop date: 06/19/15 14:46:00 Ciprofloxac 2014-08 No 400 mg, Mem oria in 08-19 Route: l 20:46: IVPB, [place] 00 ONCE, Dosing Weight 76.818, kg, Priority: STAT, Start date: 06/19/15 14:46:00, Stop date: 06/19/15 14:46:00 Flagyl 2014-08 No 500 mg, Memoria 08-19 Route: l 20:46: IVPB, Derek 00 ONCE, Dosing Weight 76.818, kg, Priority: STAT, Start date: 06/19/15 14:46:00, Stop date: 06/19/15 14:46:00 Ciprofloxac 2014-08 No 400 mg, Mem oria in 08-19 Route: l 20:46: IVPB, [place] 00 ONCE, Dosing Weight 76.818, kg, Priority: STAT, Start date: 06/19/15 14:46:00, Stop date: 06/19/15 14:46:00 Flagyl 2014-08 No 500 mg, Memoria 08-19 Route: l 20:46: IVPB, Derek 00 ONCE, Dosing Weight 76.818, kg, Priority: STAT, Start date: 06/19/15 14:46:00, Stop date: 06/19/15 14:46:00 Ciprofloxac 2014-08 No 400 mg, Mem oria in 08-19 Route: l 20:46: IVPB, Derek 00 ONCE, Dosing Weight 76.818, kg, Priority: STAT, Start date: 06/19/15 14:46:00, Stop date: 06/19/15 14:46:00 Flagyl 2014-08 No 500 mg, [facility]oria 08-19 Route: l 20:46: IVPB, Derek 00 ONCE, Dosing Weight 76.818, kg, Priority: STAT, Start date: 06/19/15 14:46:00, Stop date: 06/19/15 14:46:00 Ceftriaxone 2014-08 No 1 gm, Memor ia 08-19 Route: l 18:26: IVPB, Drug [place] 00 form: PDR/INJ, ONCE, Dosing Weight 76.818, kg, Priority: STAT, Start date: 06/19/15 12:26:00, Stop date: 06/19/15 12:26:00 Dilaudid 2014-08 No 0.5 mg, Memori a 08-19 Route: l 18:26: IVP, ONCE, [place] 00 Dosing Weight 76.818, kg, Priority: STAT, Start date: 06/19/15 12:26:00, Stop date: 06/19/15 12:26:00 Ceftriaxone 2014- No 1 gm, Mem[facility] ia 1-16 Route: l 18:26: IVPB, Drug Derek 00 form: PDR/INJ, ONCE, Dosing Weight 76.818, kg, Priority: STAT, Start date: 06/19/15 12:26:00, Stop date: 06/19/15 12:26:00 Dilaudid 2014- No 0.5 mg, Memori a 1-16 Route: l 18:26: IVP, ONCE, [place] 00 Dosing Weight 76.818, kg, Priority: STAT, Start date: 06/19/15 12:26:00, Stop date: 06/19/15 12:26:00 Ceftriaxone 2014- No 1 gm, Memor ia 1-16 Route: l 18:26: IVPB, Drug [place] 00 form: PDR/INJ, ONCE, Dosing Weight 76.818, kg, Priority: STAT, Start date: 06/19/15 12:26:00, Stop date: 06/19/15 12:26:00 Dilaudid 2014- No 0.5 mg, Memori a 1-16 Route: l 18:26: IVP, ONCE, [place] 00 Dosing Weight 76.818, kg, Priority: STAT, Start date: 06/19/15 12:26:00, Stop date: 06/19/15 12:26:00 Ceftriaxone 2014- No 1 gm, Memor ia 1-16 Route: l 18:26: IVPB, Drug [place] 00 form: PDR/INJ, ONCE, Dosing Weight 76.818, kg, Priority: STAT, Start date: 06/19/15 12:26:00, Stop date: 06/19/15 12:26:00 Dilaudid 2014- No 0.5 mg, Memori a 1-16 Route: l 18:26: IVP, ONCE, Derek 00 Dosing Weight 76.818, kg, Priority: STAT, Start date: 06/19/15 12:26:00, Stop date: 06/19/15 12:26:00 Ceftriaxone 2014- No 1 gm, Memor ia 1-16 Route: l 18:26: IVPB, Drug [place] 00 form: PDR/INJ, ONCE, Dosing Weight 76.818, kg, Priority: STAT, Start date: 06/19/15 12:26:00, Stop date: 06/19/15 12:26:00 Dilaudid 2014- No 0.5 mg, Memori a 1-16 Route: l 18:26: IVP, ONCE, Derek 00 Dosing Weight 76.818, kg, Priority: STAT, Start date: 06/19/15 12:26:00, Stop date: 06/19/15 12:26:00 Ceftriaxone 2014- No 1 gm, Memor ia 1-16 Route: l 18:26: IVPB, Drug Derek 00 form: PDR/INJ, ONCE, Dosing Weight 76.818, kg, Priority: STAT, Start date: 06/19/15 12:26:00, Stop date: 06/19/15 12:26:00 Dilaudid 2014- No 0.5 mg, Memori a 1-16 Route: l 18:26: IVP, ONCE, Derek Dosing Weight 76.818, kg, Priority: STAT, Start date: 06/19/15 12:26:00, Stop date: 06/19/15 12:26:00 Ceftriaxone 2014- No 1 gm, Mem[facility] ia 1-16 Route: l 18:26: IVPB, Drug [place] 00 form: PDR/INJ, ONCE, Dosing Weight 76.818, kg, Priority: STAT, Start date: 06/19/15 12:26:00, Stop date: 06/19/15 12:26:00 Dilaudid 2014-08 No 0.5 mg, Memori a 1-16 Route: l 18:26: IVP, ONCE, [place] 00 Dosing Weight 76.818, kg, Priority: STAT, Start date: 06/19/15 12:26:00, Stop date: 06/19/15 12:26:00 Ceftriaxone 2014- No 1 gm, Mem[facility] ia 1-16 Route: l 18:26: IVPB, Drug [place] 00 form: PDR/INJ, ONCE, Dosing Weight 76.818, kg, Priority: STAT, Start date: 06/19/15 12:26:00, Stop date: 06/19/15 12:26:00 Dilaudid 2014- No 0.5 mg, Memori a 1-16 Route: l 18:26: IVP, ONCE, [place] Dosing Weight 76.818, kg, Priority: STAT, Start date: 06/19/15 12:26:00, Stop date: 06/19/15 12:26:00 Morphine 2014-08 No 4 mg, Memoria 116 Route: l 17:13: IVP, ONCE, [place] Dosing Weight 76.818, kg, Priority: STAT, Start date: 06/19/15 11:13:00, Stop date: 06/19/15 11:13:00 Ondansetron 2014-08 No 4 mg, Memor ia 16 Route: l 17:13: IVP, ONCE, Derek Dosing Weight 76.818, kg, Priority: STAT, Start date: 06/19/15 11:13:00, Stop date: 06/19/15 11:13:00 Saline 2014-08 No Notes: [facility] Flush 0.9% -16 (Same as: l 17:13: BD [place] 00 Posiflush) Sodium 2014-08 No 1,000 mL, [facility] a Chloride 16 Infuse l 0.154 17:13: Over: 1 Derek MEQ/ML 00 hr, Route: Injectable IV, ONCE, Solution Priority: STAT, Dosing Weight 76.818 kg, Start date: 06/19/15 11:13:00, Duration: 1 doses or times, Stop date: 06/19/15 11:13:00 Morphine 2014-08 No 4 mg, Memoria 1-16 Route: l 17:13: IVP, ONCE, [place] Dosing Weight 76.818, kg, Priority: STAT, Start date: 06/19/15 11:13:00, Stop date: 06/19/15 11:13:00 Ondansetron 2014-08 No 4 mg, Memor ia 16 Route: l 17:13: IVP, ONCE, [place] Dosing Weight 76.818, kg, Priority: STAT, Start date: 06/19/15 11:13:00, Stop date: 06/19/15 11:13:00 Saline 2014-08 No Notes: [facility] Flush 0.9% -16 (Same as: l 17:13: BD [place] 00 Posiflush) Sodium 2014-08 No 1,000 mL, Mem[facility] a Chloride 1-16 Infuse l 0.154 17:13: Over: 1 [place] MEQ/ML 00 hr, Route: Injectable IV, ONCE, Solution Priority: STAT, Dosing Weight 76.818 kg, Start date: 06/19/15 11:13:00, Duration: 1 doses or times, Stop date: 06/19/15 11:13:00 Morphine 2014-08 No 4 mg, Memoria 1-16 Route: l 17:13: IVP, ONCE, Derek 00 Dosing Weight 76.818, kg, Priority: STAT, Start date: 06/19/15 11:13:00, Stop date: 06/19/15 11:13:00 Ondansetron 2014-08 No 4 mg, Memor ia 16 Route: l 17:13: IVP, ONCE, Derek 00 Dosing Weight 76.818, kg, Priority: STAT, Start date: 06/19/15 11:13:00, Stop date: 06/19/15 11:13:00 Saline 2014-08 No Notes: [facility] Flush 0.9% 16 (Same as: l 17:13: BD [place] 00 Posiflush) Sodium 2014-08 No 1,000 mL, Mem[facility] a Chloride 1-16 Infuse l 0.154 17:13: Over: 1 Derek MEQ/ML 00 hr, Route: Injectable IV, ONCE, Solution Priority: STAT, Dosing Weight 76.818 kg, Start date: 06/19/15 11:13:00, Duration: 1 doses or times, Stop date: 06/19/15 11:13:00 Morphine 2014-08 No 4 mg, Memoria 1-16 Route: l 17:13: IVP, ONCE, [place] 00 Dosing Weight 76.818, kg, Priority: STAT, Start date: 06/19/15 11:13:00, Stop date: 06/19/15 11:13:00 Ondansetron 2014-08 No 4 mg, Memor ia -16 Route: l 17:13: IVP, ONCE, [place] 00 Dosing Weight 76.818, kg, Priority: STAT, Start date: 06/19/15 11:13:00, Stop date: 06/19/15 11:13:00 Saline 2014-08 No Notes: [facility] Flush 0.9% 1-16 (Same as: l 17:13: BD [place] 00 Posiflush) Sodium 2014-08 No 1,000 mL, Mem[facility] a Chloride 1-16 Infuse l 0.154 17:13: Over: 1 [place] MEQ/ML 00 hr, Route: Injectable IV, ONCE, Solution Priority: STAT, Dosing Weight 76.818 kg, Start date: 06/19/15 11:13:00, Duration: 1 doses or times, Stop date: 06/19/15 11:13:00 Morphine 2014-08 No 4 mg, Memoria 1-16 Route: l 17:13: IVP, ONCE, [place] Dosing Weight 76.818, kg, Priority: STAT, Start date: 06/19/15 11:13:00, Stop date: 06/19/15 11:13:00 Ondansetron 2014-08 No 4 mg, Memor ia 1-16 Route: l 17:13: IVP, ONCE, [place] 00 Dosing Weight 76.818, kg, Priority: STAT, Start date: 06/19/15 11:13:00, Stop date: 06/19/15 11:13:00 Saline 2014-08 No Notes: [facility] Flush 0.9% 1-16 (Same as: l 17:13: BD [place] 00 Posiflush) Sodium 2014-08 No 1,000 mL, Mem[facility] a Chloride 1-16 Infuse l 0.154 17:13: Over: 1 [place] MEQ/ML 00 hr, Route: Injectable IV, ONCE, Solution Priority: STAT, Dosing Weight 76.818 kg, Start date: 06/19/15 11:13:00, Duration: 1 doses or times, Stop date: 06/19/15 11:13:00 Morphine 2014-08 No 4 mg, Memoria 1-16 Route: l 17:13: IVP, ONCE, [place] Dosing Weight 76.818, kg, Priority: STAT, Start date: 06/19/15 11:13:00, Stop date: 06/19/15 11:13:00 Ondansetron 2014-08 No 4 mg, Mem[facility] ia 1-16 Route: l 17:13: IVP, ONCE, Derek Dosing Weight 76.818, kg, Priority: STAT, Start date: 06/19/15 11:13:00, Stop date: 06/19/15 11:13:00 Saline 2014-08 No Notes: [facility] Flush 0.9% 1-16 (Same as: l 17:13: BD [place] 00 Posiflush) Sodium 2014-08 No 1,000 mL, Mem[facility] a Chloride 1-16 Infuse l 0.154 17:13: Over: 1 Derek MEQ/ML 00 hr, Route: Injectable IV, ONCE, Solution Priority: STAT, Dosing Weight 76.818 kg, Start date: 06/19/15 11:13:00, Duration: 1 doses or times, Stop date: 06/19/15 11:13:00 Morphine 2014-08 No 4 mg, Memoria 116 Route: l 17:13: IVP, ONCE, Derek Dosing Weight 76.818, kg, Priority: STAT, Start date: 06/19/15 11:13:00, Stop date: 06/19/15 11:13:00 Ondansetron 2014-08 No 4 mg, Memor ia 08-19 Route: l 17:13: IVP, ONCE, [place] 00 Dosing Weight 76.818, kg, Priority: STAT, Start date: 06/19/15 11:13:00, Stop date: 06/19/15 11:13:00 Saline 2014-08 No Notes: [facility] Flush 0.9% 1-16 (Same as: l 17:13: BD [place] 00 Posiflush) Sodium 2014-08 No 1,000 mL, Mem[facility] a Chloride 1-16 Infuse l 0.154 17:13: Over: 1 Derek MEQ/ML 00 hr, Route: Injectable IV, ONCE, Solution Priority: STAT, Dosing Weight 76.818 kg, Start date: 06/19/15 11:13:00, Duration: 1 doses or times, Stop date: 06/19/15 11:13:00 Morphine 2014-08 No 4 mg, Memoria 1-16 Route: l 17:13: IVP, ONCE, Derek 00 Dosing Weight 76.818, kg, Priority: STAT, Start date: 06/19/15 11:13:00, Stop date: 06/19/15 11:13:00 Ondansetron 2014-08 No 4 mg, Mem[facility] ia 16 Route: l 17:13: IVP, ONCE, Derek Dosing Weight 76.818, kg, Priority: STAT, Start date: 06/19/15 11:13:00, Stop date: 06/19/15 11:13:00 Saline 2014-08 No Notes: [facility] Flush 0.9% 08-19 (Same as: l 17:13: BD Derek Posiflush) Sodium 2014-08 No 1,000 mL, [facility] a Chloride 08-19 Infuse l 0.154 17:13: Over: 1 [place] MEQ/ML 00 hr, Route: Injectable IV, ONCE, [...] 1-24 Instructio l tablet 08:57: ns: Take [place] 00 with food tramadol Yes 1 - 2 Memoria hydrochlori 1-24 tabs, PO, l de 50 MG 08:57: Q4-6H, as Herm maru Oral Tablet 00 needed for [Ultram] pain, # 30 tab, 0 Refill(s) ibuprofen Yes Special Memor ia 800 mg oral 1-24 Instructio l tablet 08:57: ns: Take Derek 00 with food tramadol Yes 1 - 2 [facility] hydrochlori 1-24 tabs, PO, l de 50 MG 08:57: Q4-6H, as Herm maru Oral Tablet 00 needed for [Ultram] pain, # 30 tab, 0 Refill(s) ibuprofen Yes Special [facility] 800 mg oral 1-24 Instructio l tablet 08:57: ns: Take [place] 00 with food tramadol Yes 1 - 2 [facility] hydrochlori 1-24 tabs, PO, l de 50 MG 08:57: Q4-6H, as Herm maru Oral Tablet 00 needed for [Ultram] pain, # 30 tab, 0 Refill(s) ibuprofen Yes Special [facility] 800 mg oral 1-24 Instructio l tablet 08:57: ns: Take with food tramadol Yes 1 - 2 [facility] hydrochlori 1-24 tabs, PO, l de 50 MG 08:57: Q4-6H, as Herm maru Oral Tablet 00 needed for [Ultram] pain, # 30 tab, 0 Refill(s) ibuprofen Yes Special [facility] 800 mg oral 1-24 Instructio l tablet 08:57: ns: Take with food tramadol Yes 1 - 2 [facility] hydrochlori 1-24 tabs, PO, l de 50 MG 08:57: Q4-6H, as Herm maru Oral Tablet 00 needed for [Ultram] pain, # 30 tab, 0 Refill(s) ibuprofen Yes Special [facility] 800 mg oral 1-24 Instructio l tablet 08:57: ns: Take with food tramadol Yes 1 - 2 [facility] hydrochlori 1-24 tabs, PO, l de 50 MG 08:57: Q4-6H, as Herm maru Oral Tablet 00 needed for [Ultram] pain, # 30 tab, 0 Refill(s) ibuprofen Yes Special [facility] 800 mg oral 1-24 Instructio l tablet 08:57: ns: Take with food tramadol Yes 1 - 2 [facility] hydrochlori 1-24 tabs, PO, l de 50 MG 08:57: Q4-6H, as Herm maru Oral Tablet 00 needed for [Ultram] pain, # 30 tab, 0 Refill(s) ibuprofen Yes Special [facility] 800 mg oral 1-24 Instructio l tablet 08:57: ns: Take with food Ondansetron No 4 mg, Mem[facility] ia 4 MG 1-24 Route: PO, l Disintegrat 08:26: Drug form: [place] ing Tablet 00 TABDIS, ONCE, Dosing Weight 75, kg, Priority: STAT, Start date: 08/27/14 2:26:00, Stop date: 08/27/14 2:26:00 Ondansetron No 4 mg, [facility] 4 MG 1-24 Route: PO, l Disintegrat 08:26: Drug form: [place] ing Tablet 00 TABDIS, ONCE, Dosing Weight 75, kg, Priority: STAT, Start date: 08/27/14 2:26:00, Stop date: 08/27/14 2:26:00 Ondansetron 2015-0 No 4 mg, [facility] ia 4 MG 1-24 Route: PO, l Disintegrat 08:26: Drug form: [place] ing Tablet 00 TABDIS, ONCE, Dosing Weight 75, kg, Priority: STAT, Start date: 08/27/14 2:26:00, Stop date: 08/27/14 2:26:00 Ondansetron 2015-0 No 4 mg, [facility] 4 MG 1-24 Route: PO, l Disintegrat 08:26: Drug form: Derek ing Tablet 00 TABDIS, ONCE, Dosing Weight 75, kg, Priority: STAT, Start date: 08/27/14 2:26:00, Stop date: 08/27/14 2:26:00 Ondansetron 2015-0 No 4 mg, [facility] 4 MG 1-24 Route: PO, l Disintegrat 08:26: Drug form: Derek ing Tablet 00 TABDIS, ONCE, Dosing Weight 75, kg, Priority: STAT, Start date: 08/27/14 2:26:00, Stop date: 08/27/14 2:26:00 Ondansetron 2015-0 No 4 mg, [facility] 4 MG 1-24 Route: PO, l Disintegrat 08:26: Drug form: [place] ing Tablet 00 TABDIS, ONCE, Dosing Weight 75, kg, Priority: STAT, Start date: 08/27/14 2:26:00, Stop date: 08/27/14 2:26:00 Ondansetron 2015-0 No 4 mg, [facility] 4 MG 1-24 Route: PO, l Disintegrat 08:26: Drug form: [place] ing Tablet 00 TABDIS, ONCE, Dosing Weight 75, kg, Priority: STAT, Start date: 08/27/14 2:26:00, Stop date: 08/27/14 2:26:00 Ondansetron 2015-0 No 4 mg, [facility] 4 MG 1-24 Route: PO, l Disintegrat 08:26: Drug form: Derek ing Tablet 00 TABDIS, ONCE, Dosing Weight 75, kg, Priority: STAT, Start date: 08/27/14 2:26:00, Stop date: 08/27/14 2:26:00 Acetaminoph 0 No 1 tab, [place] vanna en 325 MG / 24 Route: PO, l Hydrocodone 07:44: Dosing Herm maru Bitartrate 00 Weight 75, 7.5 MG Oral kg, ONCE, Tablet STAT, Start date: 08/27/14 1:44:00, Stop date: 08/27/14 1:44:00 Acetaminoph No 1 tab, [place] v[place] en 325 MG / 24 Route: PO, l Hydrocodone 07:44: Dosing Herm maru Bitartrate 00 Weight 75, 7.5 MG Oral kg, ONCE, Tablet STAT, Start date: 08/27/14 1:44:00, Stop date: 08/27/14 1:44:00 Acetaminoph No 1 tab, [place] v[place] en 325 MG / 08-27 Route: PO, l Hydrocodone 07:44: Dosing Herm maru Bitartrate 00 Weight 75, 7.5 MG Oral kg, ONCE, Tablet STAT, Start date: 08/27/14 1:44:00, Stop date: 08/27/14 1:44:00 Acetaminoph 0 No 1 tab, [place] v[place] en 325 MG / 24 Route: PO, l Hydrocodone 07:44: Dosing Herm maru Bitartrate 00 Weight 75, 7.5 MG Oral kg, ONCE, Tablet STAT, Start date: 08/27/14 1:44:00, Stop date: 08/27/14 1:44:00 Acetaminoph 0 No 1 tab, [place] v[place] en 325 MG / 24 Route: PO, l Hydrocodone 07:44: Dosing Herm maru Bitartrate 00 Weight 75, 7.5 MG Oral kg, ONCE, Tablet STAT, Start date: 08/27/14 1:44:00, Stop date: 08/27/14 1:44:00 Acetaminoph 0 No 1 tab, [place] v[place] en 325 MG / 24 Route: PO, l Hydrocodone 07:44: Dosing Herm maru Bitartrate 00 Weight 75, 7.5 MG Oral kg, ONCE, Tablet STAT, Start date: 08/27/14 1:44:00, Stop date: 08/27/14 1:44:00 Acetaminoph 0 No 1 tab, [place] v[place] en 325 MG / 08-27 Route: PO, l Hydrocodone 07:44: Dosing Herm maru Bitartrate 00 Weight 75, 7.5 MG Oral kg, ONCE, Tablet STAT, Start date: 08/27/14 1:44:00, Stop date: 08/27/14 1:44:00 Acetaminoph 2014-0 No 1 tab, [place] v[place] en 325 MG / 08-27 Route: PO, l Hydrocodone 07:44: Dosing Herm maru Bitartrate 00 Weight 75, 7.5 MG Oral kg, ONCE, Tablet STAT, Start date: 08/27/14 1:44:00, Stop date: 08/27/14 1:44:00 Acetaminoph Yes 1 tab, PO, Memoria en 325 MG / 9-05 Q4-6H, as l Hydrocodone 06:42: needed for [place] Bitartrate 00 pain, # 30 5 MG Oral tab, 0 Tablet Refill(s) [[place] 5/325] Naproxen Yes 500 mg = 1 Mem o[facility] 500 MG Oral 9-05 tab, PO, l Tablet 06:42: BID, for [place] [Naprosyn] 00 pain, # 20 tab, 0 Refill(s) Acetaminoph Yes 1 tab, PO, Memoria en 325 MG / 9-05 Q4-6H, as l Hydrocodone 06:42: needed for [place] Bitartrate 00 pain, # 30 5 MG Oral tab, 0 Tablet Refill(s) [[place] 5/325] Naproxen Yes 500 mg = 1 Mem oria 500 MG Oral 9-05 tab, PO, l Tablet 06:42: BID, for [place] [Naprosyn] 00 pain, # 20 tab, 0 Refill(s) Acetaminoph Yes 1 tab, PO, [facility] en 325 MG / 9-05 Q4-6H, as l Hydrocodone 06:42: needed for [place] Bitartrate 00 pain, # 30 5 MG Oral tab, 0 Tablet Refill(s) [[place] 5/325] Naproxen Yes 500 mg = 1 Mem oria 500 MG Oral 9-05 tab, PO, l Tablet 06:42: BID, for [place] [Naprosyn] 00 pain, # 20 tab, 0 Refill(s) Acetaminoph Yes 1 tab, PO, Memoria en 325 MG / 9-05 Q4-6H, as l Hydrocodone 06:42: needed for [place] Bitartrate 00 pain, # 30 5 MG Oral tab, 0 Tablet Refill(s) [[place] 5/325] Naproxen Yes 500 mg = 1 Mem oria 500 MG Oral 9-05 tab, PO, l Tablet 06:42: BID, for [place] [Naprosyn] 00 pain, # 20 tab, 0 Refill(s) Acetaminoph Yes 1 tab, PO, Memoria en 325 MG / 9-05 Q4-6H, as l Hydrocodone 06:42: needed for [place] Bitartrate 00 pain, # 30 5 MG Oral tab, 0 Tablet Refill(s) [[place] 5/325] Naproxen Yes 500 mg = 1 Mem oria 500 MG Oral 9-05 tab, PO, l Tablet 06:42: BID, for [place] [Naprosyn] 00 pain, # 20 tab, 0 Refill(s) Acetaminoph Yes 1 tab, PO, [facility]oria en 325 MG / 9-05 Q4-6H, as l Hydrocodone 06:42: needed for [place] Bitartrate 00 pain, # 30 5 MG Oral tab, 0 Tablet Refill(s) [[place] 5/325] Naproxen Yes 500 mg = 1 Mem oria 500 MG Oral 9-05 tab, PO, l Tablet 06:42: BID, for [place] [Naprosyn] 00 pain, # 20 tab, 0 Refill(s) Acetaminoph Yes 1 tab, PO, [facility] en 325 MG / 9-05 Q4-6H, as l Hydrocodone 06:42: needed for [place] Bitartrate 00 pain, # 30 5 MG Oral tab, 0 Tablet Refill(s) [[place] 5/325] Naproxen Yes 500 mg = 1 Mem oria 500 MG Oral 9-05 tab, PO, l Tablet 06:42: BID, for [place] [Naprosyn] 00 pain, # 20 tab, 0 Refill(s) Acetaminoph 2014-0 Yes 1 tab, PO, Memoria en 325 MG / 04-08 Q4-6H, as l Hydrocodone 06:42: needed for [place] Bitartrate 00 pain, # 30 5 MG Oral tab, 0 Tablet Refill(s) [[place] 5/325] Naproxen 2013-0 Yes 500 mg = 1 Mem oria 500 MG Oral 04-08 tab, PO, l Tablet 06:42: BID, for [place] [Naprosyn] 00 pain, # 20 tab, 0 Refill(s) Morphine 2014-0 No 4 mg, Memoria 04-08 Route: l 06:39: IVP, ONCE, [place] Dosing Weight 75, kg, Priority: STAT, Start date: 04/08/14 1:39:00, Stop date: 04/08/14 1:39:00 Morphine 2014-0 No 4 mg, [facility]oria 04-08 Route: l 06:39: IVP, ONCE, [place] 00 Dosing Weight 75, kg, Priority: STAT, Start date: 04/08/14 1:39:00, Stop date: 04/08/14 1:39:00 Morphine 2014-0 No 4 mg, [facility] 04-08 Route: l 06:39: IVP, ONCE, [place] 00 Dosing Weight 75, kg, Priority: STAT, Start date: 04/08/14 1:39:00, Stop date: 04/08/14 1:39:00 Morphine 2014-0 No 4 mg, [facility] 04-08 Route: l 06:39: IVP, ONCE, [place] 00 Dosing Weight 75, kg, Priority: STAT, Start date: 04/08/14 1:39:00, Stop date: 04/08/14 1:39:00 Morphine 2014-0 No 4 mg, Memoria 04-08 Route: l 06:39: IVP, ONCE, Derek 00 Dosing Weight 75, kg, Priority: STAT, Start date: 04/08/14 1:39:00, Stop date: 04/08/14 1:39:00 Morphine 2014-0 No 4 mg, Memoria 04-08 Route: l 06:39: IVP, ONCE, [place] 00 Dosing Weight 75, kg, Priority: STAT, Start date: 04/08/14 1:39:00, Stop date: 04/08/14 1:39:00 Morphine 2014-0 No 4 mg, Memoria 9-05 Route: l 06:39: IVP, ONCE, [place] 00 Dosing Weight 75, kg, Priority: STAT, Start date: 04/08/14 1:39:00, Stop date: 04/08/14 1:39:00 Morphine 2014-0 No 4 mg, Memoria 9-05 Route: l 06:39: IVP, ONCE, Derek 00 Dosing Weight 75, kg, Priority: STAT, Start date: 04/08/14 1:39:00, Stop date: 04/08/14 1:39:00 Ketorolac 2014-0 No 30 mg, Memori a 9-05 Route: l 06:38: IVP, Drug [place] 00 form: INJ, ONCE, Dosing Weight 75, kg, Priority: STAT, Start date: 04/08/14 1:38:00, Stop date: 04/08/14 1:38:00 Ketorolac 2014-0 No 30 mg, Memori a 9-05 Route: l 06:38: IVP, Drug [place] 00 form: INJ, ONCE, Dosing Weight 75, kg, Priority: STAT, Start date: 04/08/14 1:38:00, Stop date: 04/08/14 1:38:00 Ketorolac 2014-0 No 30 mg, Memori a 9-05 Route: l 06:38: IVP, Drug Derek 00 form: INJ, ONCE, Dosing Weight 75, kg, Priority: STAT, Start date: 04/08/14 1:38:00, Stop date: 04/08/14 1:38:00 Ketorolac 2014-0 No 30 mg, Memori a 9-05 Route: l 06:38: IVP, Drug [place] 00 form: INJ, ONCE, Dosing Weight 75, kg, Priority: STAT, Start date: 04/08/14 1:38:00, Stop date: 04/08/14 1:38:00 Ketorolac 2014-0 No 30 mg, Memori a 9-05 Route: l 06:38: IVP, Drug Derek 00 form: INJ, ONCE, Dosing Weight 75, kg, Priority: STAT, Start date: 04/08/14 1:38:00, Stop date: 04/08/14 1:38:00 Ketorolac 2013-0 No 30 mg, Memori a 9-05 Route: l 06:38: IVP, Drug Derek 00 form: INJ, ONCE, Dosing Weight 75, kg, Priority: STAT, Start date: 04/08/14 1:38:00, Stop date: 04/08/14 1:38:00 Ketorolac 2013-0 No 30 mg, Memori a 9 Route: l 06:38: IVP, Drug Derek 00 form: INJ, ONCE, Dosing Weight 75, kg, Priority: STAT, Start date: 04/08/14 1:38:00, Stop date: 04/08/14 1:38:00 Ketorolac 2013-0 No 30 mg, Memori a 9- Route: l 06:38: IVP, Drug Derek 00 form: INJ, ONCE, Dosing Weight 75, kg, Priority: STAT, Start date: 04/08/14 1:38:00, Stop date: 04/08/14 1:38:00 Zofran No Notes: Memoria 9-05 (Same as: l 03:47: Zofran) [place] 00 Morphine No Notes: [facility]oria 9-05 (Same l 03:47: as:MORPhin Derek 00 e Sulfate) Zofran No Notes: [facility]oria 9-05 (Same as: l 03:47: Zofran) [place] 00 Morphine No Notes: [facility]oria 9-05 (Same l 03:47: as:MORPhin [place] 00 e Sulfate) Zofran No Notes: [facility]oria 9-05 (Same as: l 03:47: Zofran) [place] 00 Morphine No Notes: [facility]oria 9-05 (Same l 03:47: as:MORPhin Derek 00 e Sulfate) Zofran No Notes: [facility]oria 9-05 (Same as: l 03:47: Zofran) [place] 00 Morphine No Notes: [facility]oria 9-05 (Same l 03:47: as:MORPhin [place] 00 e Sulfate) Zofran No Notes: [facility]oria 9-05 (Same as: l 03:47: Zofran) Derek 00 Morphine No Notes: [facility] 9-05 (Same l 03:47: as:MORPhin Derek 00 e Sulfate) Zofran No Notes: [facility]oria 9-05 (Same as: l 03:47: Zofran) Derek Morphine No Notes: [facility]oria 9-05 (Same l 03:47: as:MORPhin Derek 00 e Sulfate) Zofran No Notes: [facility]oria 9-05 (Same as: l 03:47: Zofran) [place] Morphine No Notes: [facility] 9-05 (Same l 03:47: as:MORPhin Derek 00 e Sulfate) Zofran No Notes: [facility]oria 9-05 (Same as: l 03:47: Zofran) [place] Morphine No Notes: [facility]oria 9-05 (Same l 03:47: as:MORPhin [place] 00 e Sulfate) Xopenex 2013- No 1.25 mg, Memori a 04-08 Route: l 03:46: NEB, ONCE, Derek Dosing Weight 75, kg, Start date: 04/07/14 22:46:00, Stop date: 04/07/14 22:46:00 Xopenex 2014-0 No 1.25 mg, Memori a 04-08 Route: l 03:46: NEB, ONCE, [place] Dosing Weight 75, kg, Start date: 04/07/14 22:46:00, Stop date: 04/07/14 22:46:00 Xopenex 2014-0 No 1.25 mg, Memori a 04-08 Route: l 03:46: NEB, ONCE, [place] Dosing Weight 75, kg, Start date: 04/07/14 22:46:00, Stop date: 04/07/14 22:46:00 Xopenex 2013-0 No 1.25 mg, Memori a 04-08 Route: l 03:46: NEB, ONCE, Derek Dosing Weight 75, kg, Start date: 04/07/14 22:46:00, Stop date: 04/07/14 22:46:00 Xopenex 2013-0 No 1.25 mg, Memori a 04-08 Route: l 03:46: NEB, ONCE, Derek Dosing Weight 75, kg, Start date: 04/07/14 22:46:00, Stop date: 04/07/14 22:46:00 Xopenex 2014-0 No 1.25 mg, Memori a 04-08 Route: l 03:46: NEB, ONCE, [place] Dosing Weight 75, kg, Start date: 04/07/14 22:46:00, Stop date: 04/07/14 22:46:00 Xopenex 2014-0 No 1.25 mg, Memori a 04-08 Route: l 03:46: NEB, ONCE, Derek Dosing Weight 75, kg, Start date: 04/07/14 22:46:00, Stop date: 04/07/14 22:46:00 Xopenex 2014-0 No 1.25 mg, Memori a 04-08 Route: l 03:46: NEB, ONCE, Derek 00 Dosing Weight 75, kg, Start date: 04/07/14 22:46:00, Stop date: 04/07/14 22:46:00 heparin 2012-0 No Uriel 5,000 Memor ia 5000 6-13 Hussein Romero unit, 1 l units/mL 21:00: mL, Route: Her prieto injectable 00 SUB-Q, solution Drug form: INJ, Q8H, Dosing Weight 76.818, kg, Start date: 01/14/13 16:00:00, Duration: 30 day, Stop date: 02/13/13 8:00:00 heparin 2012-0 No Uriel 5,000 Mem[facility] ia 5000 6-13 Hussein Romero unit, 1 l units/mL 21:00: mL, Route: Her prieto injectable 00 SUB-Q, solution Drug form: INJ, Q8H, Dosing Weight 76.818, kg, Start date: 01/14/13 16:00:00, Duration: 30 day, Stop date: 02/13/13 8:00:00 heparin 2013-0 No Uriel 5,000 Mem[facility] ia 5000 6-13 Hussein Romero unit, 1 l units/mL 21:00: mL, Route: Her prieto injectable 00 SUB-Q, solution Drug form: INJ, Q8H, Dosing Weight 76.818, kg, Start date: 01/14/13 16:00:00, Duration: 30 day, Stop date: 02/13/13 8:00:00 heparin 2012-0 No Uriel 5,000 Memor ia 5000 6-13 Hussein Romero unit, 1 l units/mL 21:00: mL, Route: Her prieto injectable 00 SUB-Q, solution Drug form: INJ, Q8H, Dosing Weight 76.818, kg, Start date: 01/14/13 16:00:00, Duration: 30 day, Stop date: 02/13/13 8:00:00 heparin 2012-0 No Uriel 5,000 Mem[facility] ia 5000 6-13 Hussein Romero unit, 1 l units/mL 21:00: mL, Route: Her prieto injectable 00 SUB-Q, solution Drug form: INJ, Q8H, Dosing Weight 76.818, kg, Start date: 01/14/13 16:00:00, Duration: 30 day, Stop date: 02/13/13 8:00:00 heparin 2012-0 No Uriel 5,000 Mem[facility] ia 5000 6-13 Hussein Romero unit, 1 l units/mL 21:00: mL, Route: Her prieto injectable 00 SUB-Q, solution Drug form: INJ, Q8H, Dosing Weight 76.818, kg, Start date: 01/14/13 16:00:00, Duration: 30 day, Stop date: 02/13/13 8:00:00 heparin 2012-0 No Uriel 5,000 Mem[facility] ia 5000 6-13 Hussein Romero unit, 1 l units/mL 21:00: mL, Route: Her prieto injectable 00 SUB-Q, solution Drug form: INJ, Q8H, Dosing Weight 76.818, kg, Start date: 01/14/13 16:00:00, Duration: 30 day, Stop date: 02/13/13 8:00:00 heparin 2012-0 No Uriel 5,000 Mem[facility] ia 5000 6-13 Hussein Romero unit, 1 l units/mL 21:00: mL, Route: Her prieto injectable 00 SUB-Q, solution Drug form: INJ, Q8H, Dosing Weight 76.818, kg, Start date: 01/14/13 16:00:00, Duration: 30 day, Stop date: 02/13/13 8:00:00 Zofran 4 mg 2012-0 Yes Uriel 4 mg, 1 Memoria oral tablet 01-14 Hussein Romero tab, PO, l 19:42: Q8H, PRN, Derek 25 tab, as needed for nausea/vom iting, Substituti on Allowed, TAB Zofran 4 mg 2012-0 Yes Uriel 4 mg, 1 [facility] oral tablet 01-14 Hussein Romero tab, PO, l 19:42: Q8H, PRN, Derek 25 tab, as needed for nausea/vom iting, Substituti on Allowed, TAB Zofran 4 mg 2012-0 Yes Uriel 4 mg, 1 [facility] oral tablet 01-14 Hussein Romero tab, PO, l 19:42: Q8H, PRN, Derek 25 tab, as needed for nausea/vom iting, Substituti on Allowed, TAB Zofran 4 mg 2012-0 Yes Uriel 4 mg, 1 [facility] oral tablet 01-14 Hussein Romero tab, PO, l 19:42: Q8H, PRN, Derek 25 tab, as needed for nausea/vom iting, Substituti on Allowed, TAB Zofran 4 mg 2012-0 Yes Uriel 4 mg, 1 [facility] oral tablet 01-14 Hussein Romero tab, PO, l 19:42: Q8H, PRN, Derek 25 tab, as needed for nausea/vom iting, Substituti on Allowed, TAB Zofran 4 mg 2012-0 Yes Uriel 4 mg, 1 [facility] oral tablet 01-14 Hussein Romero tab, PO, l 19:42: Q8H, PRN, [place] 25 tab, as needed for nausea/vom iting, Substituti on Allowed, TAB Zofran 4 mg 2012-0 Yes Uriel 4 mg, 1 [facility] oral tablet 01-14 Hussein Romero tab, PO, l 19:42: Q8H, PRN, [place] 25 tab, as needed for nausea/vom iting, Substituti on Allowed, TAB Zofran 4 mg 2012-0 Yes Uriel 4 mg, 1 [facility] oral tablet 01-14 Hussein Romero tab, PO, l 19:42: Q8H, PRN, [place] 07 25 tab, as needed for nausea/vom iting, Substituti on Allowed, TAB Zofran 4 mg No Uriel 4 mg, 1 [facility] oral tablet 01-14 Hussein Romero tab, PO, l 19:41: Q8H, 25 [place] 24 tab, Substituti on Allowed, TAB Zofran 4 mg No Uriel 4 mg, 1 [facility] oral tablet 01-14 Hussein Romero tab, PO, l 19:41: Q8H, 25 [place] 24 tab, Substituti on Allowed, TAB Zofran 4 mg No Uriel 4 mg, 1 [facility] oral tablet 01-14 Hussein Romero tab, PO, l 19:41: Q8H, 25 Derek 24 tab, Substituti on Allowed, TAB Zofran 4 mg No Uriel 4 mg, 1 [facility] oral tablet 01-14 Hussein Romero tab, PO, l 19:41: Q8H, 25 [place] 24 tab, Substituti on Allowed, TAB Zofran 4 mg No Uriel 4 mg, 1 [facility] oral tablet 01-14 Hussein Romero tab, PO, l 19:41: Q8H, 25 [place] 24 tab, Substituti on Allowed, TAB Zofran 4 mg No Uriel 4 mg, 1 [facility] oral tablet 01-14 Hussein Romero tab, PO, l 19:41: Q8H, 25 [place] 24 tab, Substituti on Allowed, TAB Zofran 4 mg No Uriel 4 mg, 1 [facility] oral tablet 01-14 Hussein Romero tab, PO, l 19:41: Q8H, 25 Derek 24 tab, Substituti on Allowed, TAB Zofran 4 mg No Uriel 4 mg, 1 [facility] oral tablet 01-14 Hussein Romero tab, PO, l 19:41: Q8H, 25 [place] 24 tab, Substituti on Allowed, TAB Vicodin HP Yes Uriel 1 tab, PO, Memoria 10 mg-300 01-14 Hussein Romero Q6H, PRN, l mg oral 18:22: (not to [place] tablet 06 exceed 4000 mg acetaminop hen per day), 50 tab, as needed for pain, Substituti on Allowed, Maintenanc e(not to exceed 4000 mg acetaminop hen per day) Vicodin HP Yes Uriel 1 tab, PO, Memoria 10 mg-300 6-13 Hussein Romero Q6H, PRN, l mg oral 18:22: (not to Derek tablet 06 exceed 4000 mg acetaminop hen per day), 50 tab, as needed for pain, Substituti on Allowed, Maintenanc e(not to exceed 4000 mg acetaminop hen per day) Vicodin HP Yes Uriel 1 tab, PO, Memoria 10 mg-300 6-13 Hussein Romero Q6H, PRN, l mg oral 18:22: (not to Derek tablet 06 exceed 4000 mg acetaminop hen per day), 50 tab, as needed for pain, Substituti on Allowed, Maintenanc e(not to exceed 4000 mg acetaminop hen per day) Vicodin HP Yes Uriel 1 tab, PO, Memoria 10 mg-300 6-13 Hussein Romero Q6H, PRN, l mg oral 18:22: (not to [place] tablet 06 exceed 4000 mg acetaminop hen per day), 50 tab, as needed for pain, Substituti on Allowed, Maintenanc e(not to exceed 4000 mg acetaminop hen per day) Vicodin HP Yes Uriel 1 tab, PO, Mem[facility] 10 mg-300 6-13 Hussein Romero Q6H, PRN, l mg oral 18:22: (not to Derek tablet 06 exceed 4000 mg acetaminop hen per day), 50 tab, as needed for pain, Substituti on Allowed, Maintenanc e(not to exceed 4000 mg acetaminop hen per day) Vicodin HP Yes Uriel 1 tab, PO, Mem[facility] 10 mg-300 6-13 Hussein Romero Q6H, PRN, l mg oral 18:22: (not to Derek tablet 06 exceed 4000 mg acetaminop hen per day), 50 tab, as needed for pain, Substituti on Allowed, Maintenanc e(not to exceed 4000 mg acetaminop hen per day) Vicodin HP Yes Uriel 1 tab, PO, Memoria 10 mg-300 6-13 Hussein Romero Q6H, PRN, l mg oral 18:22: (not to Derek tablet 06 exceed 4000 mg acetaminop hen per day), 50 tab, as needed for pain, Substituti on Allowed, Maintenanc e(not to exceed 4000 mg acetaminop hen per day) Vicodin HP Yes [place] 1 tab, PO, Mem[facility] 10 mg-300 6-13 [place] Rom[place] Q6H, PRN, l mg oral 18:22: (not to Derek tablet 06 exceed 4000 mg acetaminop hen per day), 50 tab, as needed for pain, Substituti on Allowed, Maintenanc e(not to exceed 4000 mg acetaminop hen per day) Colace 100 Yes Uriel 100 mg, 1 [facility] mg oral 6-13 Hussein Romero cap, PO, l capsule 18:07: BID, PRN, [place] nn 47 with plenty of water, 60 cap, Constipati on, Substituti on Allowed, CAPwith plenty of water Colace 100 Yes Uriel 100 mg, 1 Memoria mg oral 6-13 Hussein Romero cap, PO, l capsule 18:07: BID, PRN, [place] nn 47 with plenty of water, 60 cap, Constipati on, Substituti on Allowed, CAPwith plenty of water Colace 100 Yes Uriel 100 mg, 1 [facility] mg oral 6-13 Hussein Romero cap, PO, l capsule 18:07: BID, PRN, [place] nn 47 with plenty of water, 60 cap, Constipati on, Substituti on Allowed, CAPwith plenty of water Colace 100 Yes Uriel 100 mg, 1 [facility] mg oral 6-13 Hussein Romero cap, PO, l capsule 18:07: BID, PRN, [place] nn 47 with plenty of water, 60 cap, Constipati on, Substituti on Allowed, CAPwith plenty of water Colace 100 Yes Uriel 100 mg, 1 [facility] mg oral 6-13 Hussein Romero cap, PO, l capsule 18:07: BID, PRN, [place] nn 47 with plenty of water, 60 cap, Constipati on, Substituti on Allowed, CAPwith plenty of water Colace 100 2012-0 Yes Uriel 100 mg, 1 [facility] mg oral 01-14 Hussein Romero cap, PO, l capsule 18:07: BID, PRN, [place] nn 47 with plenty of water, 60 cap, Constipati on, Substituti on Allowed, CAPwith plenty of water Colace 100 2012-0 Yes Uriel 100 mg, 1 [facility] mg oral 01-14 Hussein Romero cap, PO, l capsule 18:07: BID, PRN, [place] nn 47 with plenty of water, 60 cap, Constipati on, Substituti on Allowed, CAPwith plenty of water Colace 100 2012-0 Yes Uriel 100 mg, 1 [facility] mg oral 01-14 Hussein Romero cap, PO, l capsule 18:07: BID, PRN, [place] nn 47 with plenty of water, 60 cap, Constipati on, Substituti on Allowed, CAPwith plenty of water Valium 5 mg 2012-0 Yes Uriel 5 mg, 1 [facility] oral tablet 01-14 Hussein Romero tab, PO, l 18:07: TID, PRN, [place] 43 30 tab, spasm, Substituti on Allowed, TAB Valium 5 mg 2012-0 Yes Uriel 5 mg, 1 [facility] oral tablet 01-14 Hussein Romero tab, PO, l 18:07: TID, PRN, Derek 43 30 tab, spasm, Substituti on Allowed, TAB Valium 5 mg 2012-0 Yes Uriel 5 mg, 1 [facility] oral tablet 01-14 Hussein Romero tab, PO, l 18:07: TID, PRN, Derek 43 30 tab, spasm, Substituti on Allowed, TAB Valium 5 mg 2012-0 Yes Uriel 5 mg, 1 [facility] oral tablet 01-14 Hussein Romero tab, PO, l 18:07: TID, PRN, [place] 43 30 tab, spasm, Substituti on Allowed, TAB Valium 5 mg 2012-0 Yes Uriel 5 mg, 1 [facility] oral tablet 01-14 Hussein Romero tab, PO, l 18:07: TID, PRN, [place] 43 30 tab, spasm, Substituti on Allowed, TAB Valium 5 mg Yes Uriel 5 mg, 1 [facility] oral tablet 01-14 Hussein Romero tab, PO, l 18:07: TID, PRN, [place] 43 30 tab, spasm, Substituti on Allowed, TAB Valium 5 mg Yes Uriel 5 mg, 1 [facility] oral tablet 01-14 Hussein Romero tab, PO, l 18:07: TID, PRN, Derek 43 30 tab, spasm, Substituti on Allowed, TAB Valium 5 mg Yes Uriel 5 mg, 1 [facility] oral tablet 01-14 Hussein Romero tab, PO, l 18:07: TID, PRN, Derek 43 30 tab, spasm, Substituti on Allowed, TAB [place] No Uriel 1-2 tab, [place] 10/325 oral - Hussein Romero PO, Q4-6H, l tablet 18:07: PRN, (not Har[place] 33 to exceed 4000 mg acetaminop hen per day), 50 tab, Pain, Substituti on Allowed, Maintenanc e(not to exceed 4000 mg acetaminop hen per day) [place] No Uriel 1-2 tab, [place] 10/325 oral - Hussein Romero PO, Q4-6H, l tablet 18:07: PRN, (not Haris [place] 33 to exceed 4000 mg acetaminop hen per day), 50 tab, Pain, Substituti on Allowed, Maintenanc e(not to exceed 4000 mg acetaminop hen per day) [place] No Uriel 1-2 tab, [place] 10/325 oral -13 Hussein Romero PO, Q4-6H, l tablet 18:07: PRN, (not Haris n 33 to exceed 4000 mg acetaminop hen per day), 50 tab, Pain, Substituti on Allowed, Maintenanc e(not to exceed 4000 mg acetaminop hen per day) [place] No Uriel 1-2 tab, [place] 10/325 oral -13 Hussein Romero PO, Q4-6H, l tablet 18:07: PRN, (not [place] 33 to exceed 4000 mg acetaminop hen per day), 50 tab, Pain, Substituti on Allowed, Maintenanc e(not to exceed 4000 mg acetaminop hen per day) [place] No Uriel 1-2 tab, [place] 10/325 oral 6-13 Hussein Romero PO, Q4-6H, l tablet 18:07: PRN, (not Haris [place] 33 to exceed 4000 mg acetaminop hen per day), 50 tab, Pain, Substituti on Allowed, Maintenanc e(not to exceed 4000 mg acetaminop hen per day) [place] No Uriel 1-2 tab, [place] 10/325 oral 6-13 Hussein Romero PO, Q4-6H, l tablet 18:07: PRN, (not [place] 33 to exceed 4000 mg acetaminop hen per day), 50 tab, Pain, Substituti on Allowed, Maintenanc e(not to exceed 4000 mg acetaminop hen per day) [place] No Uriel 1-2 tab, [place] 10/325 oral 6-13 Hussein Romero PO, Q4-6H, l tablet 18:07: PRN, (not [place] 33 to exceed 4000 mg acetaminop hen per day), 50 tab, Pain, Substituti on Allowed, Maintenanc e(not to exceed 4000 mg acetaminop hen per day) [place] No Uriel 1-2 tab, [place] 10/325 oral 6-13 Hussein Romero PO, Q4-6H, l tablet 18:07: PRN, (not Haris [place] 33 to exceed 4000 mg acetaminop hen per day), 50 tab, Pain, Substituti on Allowed, Maintenanc e(not to exceed 4000 mg acetaminop hen per day) diazepam No Alysa L 5 mg, 1 M emoria 01-13 May tab, l 05:00: Route: PO, Derek Drug form: TAB, Q8H, Dosing Weight 72.727, kg, Start date: 01/13/13 0:00:00, Duration: 30 day, Stop date: 02/11/13 16:00:00 diazepam 2013-0 No Alysa L 5 mg, 1 M emoria 6-12 May tab, l 05:00: Route: PO, [place] 00 Drug form: TAB, Q8H, Dosing Weight 72.727, kg, Start date: 01/13/13 0:00:00, Duration: 30 day, Stop date: 02/11/13 16:00:00 diazepam 2012-0 No Alysa L 5 mg, 1 M emoria 6-12 May tab, l 05:00: Route: PO, Derek 00 Drug form: TAB, Q8H, Dosing Weight 72.727, kg, Start date: 01/13/13 0:00:00, Duration: 30 day, Stop date: 02/11/13 16:00:00 diazepam 2012-0 No Alysa L 5 mg, 1 M emoria 6-12 May tab, l 05:00: Route: PO, Derek 00 Drug form: TAB, Q8H, Dosing Weight 72.727, kg, Start date: 01/13/13 0:00:00, Duration: 30 day, Stop date: 02/11/13 16:00:00 diazepam 2012-0 No Alysa L 5 mg, 1 M emoria 6-12 May tab, l 05:00: Route: PO, [place] 00 Drug form: TAB, Q8H, Dosing Weight 72.727, kg, Start date: 01/13/13 0:00:00, Duration: 30 day, Stop date: 02/11/13 16:00:00 diazepam 2012-0 No Alysa L 5 mg, 1 M emoria 6-12 May tab, l 05:00: Route: PO, [place] 00 Drug form: TAB, Q8H, Dosing Weight 72.727, kg, Start date: 01/13/13 0:00:00, Duration: 30 day, Stop date: 02/11/13 16:00:00 diazepam 2013-0 No Alysa L 5 mg, 1 M emoria 6-12 May tab, l 05:00: Route: PO, [place] 00 Drug form: TAB, Q8H, Dosing Weight 72.727, kg, Start date: 01/13/13 0:00:00, Duration: 30 day, Stop date: 02/11/13 16:00:00 diazepam 2012-0 No Alysa L 5 mg, 1 M emoria 6-12 May tab, l 05:00: Route: PO, [place] 00 Drug form: TAB, Q8H, Dosing Weight 72.727, kg, Start date: 01/13/13 0:00:00, Duration: 30 day, Stop date: 02/11/13 16:00:00 docusate 2012-0 No Alysa L 100 mg, 1 Memoria 6-12 May cap, l 02:00: Route: PO, Derek 00 Drug form: CAP, Q12H, Dosing Weight 72.727, kg, Start date: 01/12/13 21:00:00, Duration: 30 day, Stop date: 02/11/13 9:00:00 famotidine 2012-0 No Alysa L 20 mg, 2 [facility]oria 6-12 May mL, Route: l 02:00: IVP, Drug form: INJ, Q12H, Dosing Weight 72.727, kg, Start date: 01/12/13 21:00:00, Duration: 30 day, Stop date: 02/11/13 9:00:00 Saline 2012-0 No Alysa L 5 ml, Memor ia Flush 0.9% 6-12 May Route: l 02:00: IVP, Drug Form: INJ, Dosing Weight 72.727, kg, Q12H, Start date: 01/12/13 21:00:00, Duration: 30 day, Stop date: 02/11/13 9:00:00 docusate 2012-0 No Alysa L 100 mg, 1 Memoria 6-12 May cap, l 02:00: Route: PO, Derek 00 Drug form: CAP, Q12H, Dosing Weight 72.727, kg, Start date: 01/12/13 21:00:00, Duration: 30 day, Stop date: 02/11/13 9:00:00 famotidine 2012-0 No Alysa L 20 mg, 2 Memoria 6-12 May mL, Route: l 02:00: IVP, Drug form: INJ, Q12H, Dosing Weight 72.727, kg, Start date: 01/12/13 21:00:00, Duration: 30 day, Stop date: 02/11/13 9:00:00 Saline 2012-0 No Alysa L 5 ml, Memor ia Flush 0.9% 6-12 May Route: l 02:00: IVP, Drug Derek 00 Form: INJ, Dosing Weight 72.727, kg, Q12H, Start date: 01/12/13 21:00:00, Duration: 30 day, Stop date: 02/11/13 9:00:00 docusate 2012-0 No Alysa L 100 mg, 1 Memoria 6-12 May cap, l 02:00: Route: PO, Derek 00 Drug form: CAP, Q12H, Dosing Weight 72.727, kg, Start date: 01/12/13 21:00:00, Duration: 30 day, Stop date: 02/11/13 9:00:00 famotidine 2012-0 No Alysa L 20 mg, 2 Memoria 6-12 May mL, Route: l 02:00: IVP, Drug [place] 00 form: INJ, Q12H, Dosing Weight 72.727, kg, Start date: 01/12/13 21:00:00, Duration: 30 day, Stop date: 02/11/13 9:00:00 Saline 2012-0 No Alysa L 5 ml, Mem[facility] ia Flush 0.9% 6-12 May Route: l 02:00: IVP, Drug Derek 00 Form: INJ, Dosing Weight 72.727, kg, Q12H, Start date: 01/12/13 21:00:00, Duration: 30 day, Stop date: 02/11/13 9:00:00 docusate 2012-0 No Alysa L 100 mg, 1 [facility] 6-12 May cap, l 02:00: Route: PO, Derek 00 Drug form: CAP, Q12H, Dosing Weight 72.727, kg, Start date: 01/12/13 21:00:00, Duration: 30 day, Stop date: 02/11/13 9:00:00 famotidine 2013-0 No Alysa L 20 mg, 2 [facility] 6-12 May mL, Route: l 02:00: IVP, Drug [place] 00 form: INJ, Q12H, Dosing Weight 72.727, kg, Start date: 01/12/13 21:00:00, Duration: 30 day, Stop date: 02/11/13 9:00:00 Saline 2012-0 No Alysa L 5 ml, Mem[facility] ia Flush 0.9% 6-12 May Route: l 02:00: IVP, Drug Derek 00 Form: INJ, Dosing Weight 72.727, kg, Q12H, Start date: 01/12/13 21:00:00, Duration: 30 day, Stop date: 02/11/13 9:00:00 docusate 2013-0 No Alysa L 100 mg, 1 Memoria 6-12 May cap, l 02:00: Route: PO, Derek 00 Drug form: CAP, Q12H, Dosing Weight 72.727, kg, Start date: 01/12/13 21:00:00, Duration: 30 day, Stop date: 02/11/13 9:00:00 famotidine 2012-0 No Alysa L 20 mg, 2 [facility] 6-12 May mL, Route: l 02:00: IVP, Drug Derek 00 form: INJ, Q12H, Dosing Weight 72.727, kg, Start date: 01/12/13 21:00:00, Duration: 30 day, Stop date: 02/11/13 9:00:00 Saline 2012-0 No Alysa L 5 ml, Memor ia Flush 0.9% 6-12 May Route: l 02:00: IVP, Drug Derek 00 Form: INJ, Dosing Weight 72.727, kg, Q12H, Start date: 01/12/13 21:00:00, Duration: 30 day, Stop date: 02/11/13 9:00:00 docusate 2013-0 No Alysa L 100 mg, 1 Mem[facility] 6-12 May cap, l 02:00: Route: PO, Derek 00 Drug form: CAP, Q12H, Dosing Weight 72.727, kg, Start date: 01/12/13 21:00:00, Duration: 30 day, Stop date: 02/11/13 9:00:00 famotidine 2012-0 No Alysa L 20 mg, 2 [facility] 6-12 May mL, Route: l 02:00: IVP, Drug Derek 00 form: INJ, Q12H, Dosing Weight 72.727, kg, Start date: 01/12/13 21:00:00, Duration: 30 day, Stop date: 02/11/13 9:00:00 Saline 2012-0 No Alysa L 5 ml, [facility] Flush 0.9% 6-12 May Route: l 02:00: IVP, Drug [place] 00 Form: INJ, Dosing Weight 72.727, kg, Q12H, Start date: 01/12/13 21:00:00, Duration: 30 day, Stop date: 02/11/13 9:00:00 docusate 2013-0 No Alysa L 100 mg, 1 [facility] 6-12 May cap, l 02:00: Route: PO, Derek 00 Drug form: CAP, Q12H, Dosing Weight 72.727, kg, Start date: 01/12/13 21:00:00, Duration: 30 day, Stop date: 02/11/13 9:00:00 famotidine 2012-0 No Alysa L 20 mg, 2 [facility] 6-12 May mL, Route: l 02:00: IVP, Drug [place] 00 form: INJ, Q12H, Dosing Weight 72.727, kg, Start date: 01/12/13 21:00:00, Duration: 30 day, Stop date: 02/11/13 9:00:00 Saline 2012-0 No Alysa L 5 ml, [facility] Flush 0.9% 6-12 May Route: l 02:00: IVP, Drug Derek 00 Form: INJ, Dosing Weight 72.727, kg, Q12H, Start date: 01/12/13 21:00:00, Duration: 30 day, Stop date: 02/11/13 9:00:00 docusate 2013-0 No Alysa L 100 mg, 1 [facility] 6-12 May cap, l 02:00: Route: PO, Derek 00 Drug form: CAP, Q12H, Dosing Weight 72.727, kg, Start date: 01/12/13 21:00:00, Duration: 30 day, Stop date: 02/11/13 9:00:00 famotidine 2012-0 No Alysa L 20 mg, 2 [facility] 6-12 May mL, Route: l 02:00: IVP, Drug form: INJ, Q12H, Dosing Weight 72.727, kg, Start date: 01/12/13 21:00:00, Duration: 30 day, Stop date: 02/11/13 9:00:00 Saline 2012-0 No Alysa L 5 ml, [facility] Flush 0.9% 6-12 May Route: l 02:00: IVP, Drug Derek 00 Form: INJ, Dosing Weight 72.727, kg, Q12H, Start date: 01/12/13 21:00:00, Duration: 30 day, Stop date: 02/11/13 9:00:00 acetaminoph 2012-0 No Alysa L 1 tab, [facility] en-hydrocod 6-12 May Route: PO, l one 325 01:00: Drug Form: Herm maru mg-10 mg 00 TAB, oral tablet Dosing Weight 72.727, kg, Q4H, Start date: 01/12/13 20:00:00, Duration: 30 day, Stop date: 02/11/13 16:00:00 acetaminoph 2012-0 No Alysa L 1 tab, [facility] en-hydrocod 6-12 May Route: PO, l one 325 01:00: Drug Form: Herm maru mg-10 mg 00 TAB, oral tablet Dosing Weight 72.727, kg, Q4H, Start date: 01/12/13 20:00:00, Duration: 30 day, Stop date: 02/11/13 16:00:00 acetaminoph 2012-0 No Alysa L 1 tab, [facility] en-hydrocod 6-12 May Route: PO, l one 325 01:00: Drug Form: Herm maru mg-10 mg 00 TAB, oral tablet Dosing Weight 72.727, kg, Q4H, Start date: 01/12/13 20:00:00, Duration: 30 day, Stop date: 02/11/13 16:00:00 acetaminoph 2012-0 No Alysa L 1 tab, Memoria en-hydrocod 6-12 May Route: PO, l one 325 01:00: Drug Form: Herm maru mg-10 mg 00 TAB, oral tablet Dosing Weight 72.727, kg, Q4H, Start date: 01/12/13 20:00:00, Duration: 30 day, Stop date: 02/11/13 16:00:00 acetaminoph 0 No Alysa L 1 tab, Memoria en-hydrocod 6-12 May Route: PO, l one 325 01:00: Drug Form: Herm maru mg-10 mg 00 TAB, oral tablet Dosing Weight 72.727, kg, Q4H, Start date: 01/12/13 20:00:00, Duration: 30 day, Stop date: 02/11/13 16:00:00 acetaminoph 0 No Alysa L 1 tab, Memoria en-hydrocod 6-12 May Route: PO, l one 325 01:00: Drug Form: Herm maru mg-10 mg 00 TAB, oral tablet Dosing Weight 72.727, kg, Q4H, Start date: 01/12/13 20:00:00, Duration: 30 day, Stop date: 02/11/13 16:00:00 acetaminoph 0 No Alysa L 1 tab, Memoria en-hydrocod 6-12 May Route: PO, l one 325 01:00: Drug Form: Herm maru mg-10 mg 00 TAB, oral tablet Dosing Weight 72.727, kg, Q4H, Start date: 01/12/13 20:00:00, Duration: 30 day, Stop date: 02/11/13 16:00:00 acetaminoph 0 No Alysa L 1 tab, Memoria en-hydrocod 6-12 May Route: PO, l one 325 01:00: Drug Form: Herm maru mg-10 mg 00 TAB, oral tablet Dosing Weight 72.727, kg, Q4H, Start date: 01/12/13 20:00:00, Duration: 30 day, Stop date: 02/11/13 16:00:00 Phenergan 2013-0 No Estela 12.5 mg, Memoria 6-12 Michelle 0.5 mL, l 00:08: nd Route: [place] 00 IVPB, Drug form: INJ, ONCE, Dosing Weight 72.727, kg, PRN Nausea & Vomiting, Start date: 01/12/13 19:08:00, Stop date: 02/11/13 19:07:00 hydromorpho 2013-0 No Estela 1 mg, 0.5 Memoria ne 6-12 Michelle mL, Route: l 00:08: nd IVP, Drug Herm maru 00 form: INJ, ONCE, Dosing Weight 72.727, kg, Priority: STAT, Start date: 01/12/13 19:08:00, Stop date: 01/12/13 19:08:00 Phenergan 2013-0 No Estela 12.5 mg, Memoria 6-12 Michelle 0.5 mL, l 00:08: Route: [place] 00 IVPB, Drug form: INJ, ONCE, Dosing Weight 72.727, kg, PRN Nausea & Vomiting, Start date: 01/12/13 19:08:00, Stop date: 02/11/13 19:07:00 hydromorpho 2013-0 No Estela 1 mg, 0.5 Memoria ne 6-12 Michelle mL, Route: l 00:08: nd IVP, Drug Herm maru 00 form: INJ, ONCE, Dosing Weight 72.727, kg, Priority: STAT, Start date: 01/12/13 19:08:00, Stop date: 01/12/13 19:08:00 Phenergan 2013-0 No Estela 12.5 mg, Memoria 6-12 Michelle 0.5 mL, l 00:08: Route: [place] 00 IVPB, Drug form: INJ, ONCE, Dosing [...] Memoria 6-12 Michelle 0.5 mL, l 00:08: Route: [place] 00 IVPB, Drug form: INJ, ONCE, Dosing [...] Memoria 6-12 Michelle 0.5 mL, l 00:08: Route: Derek IVPB, Drug form: INJ, ONCE, Dosing Weight [...] Memoria 6-12 Michelle 0.5 mL, l 00:08: Route: [place] 00 IVPB, Drug form: INJ, ONCE, Dosing [...] Memoria 6-12 Michelle 0.5 mL, l 00:08: nd Route: [place] 00 IVPB, Drug form: INJ, ONCE, Dosing [...] Memoria 6-12 Michelle 0.5 mL, l 00:08: Route: [place] 00 IVPB, Drug form: INJ, ONCE, Dosing [...] 6-11 Michelle Route: l 23:22: [place] IVPB, Derek 00 ONCE, Dosing Weight 72.727, kg, Start date: 01/12/13 18:22:00, Stop date: 01/12/13 18:22:00 Phenergan 2013-0 No Estela 12.5 mg, Memoria 6-11 Michelle Route: l 23:22: [place] IVPB, [place] 00 ONCE, Dosing Weight 72.727, kg, Start date: 01/12/13 18:22:00, Stop date: 01/12/13 18:22:00 Phenergan 2013-0 No Estela 12.5 mg, Memoria 6-11 Michelle Route: l 23:22: [place] IVPB, Derek 00 ONCE, Dosing Weight 72.727, kg, Start date: 01/12/13 18:22:00, Stop date: 01/12/13 18:22:00 Phenergan 2013-0 No Estela 12.5 mg, Memoria 6-11 Michelle Route: l 23:22: [place] IVPB, [place] 00 ONCE, Dosing Weight 72.727, kg, Start date: 01/12/13 18:22:00, Stop date: 01/12/13 18:22:00 Phenergan 2013-0 No Estela 12.5 mg, Memoria 6-11 Michelle Route: l 23:22: [place] IVPB, [place] 00 ONCE, Dosing Weight 72.727, kg, Start date: 01/12/13 18:22:00, Stop date: 01/12/13 18:22:00 Phenergan 2013-0 No Estela 12.5 mg, Memoria 6-11 Michelle Route: l 23:22: [place] IVPB, [place] 00 ONCE, Dosing Weight 72.727, kg, Start date: 01/12/13 18:22:00, Stop date: 01/12/13 18:22:00 Phenergan 2013-0 No Estela 12.5 mg, Memoria 6-11 Michelle Route: l 23:22: [place] IVPB, Derek 00 ONCE, Dosing Weight 72.727, kg, Start date: 01/12/13 18:22:00, Stop date: 01/12/13 18:22:00 Phenergan 2013-0 No Estela 12.5 mg, Memoria 6-11 Michelle Route: l 23:22: [place] IVPB, Derek 00 ONCE, Dosing Weight 72.727, kg, Start date: 01/12/13 18:22:00, Stop date: 01/12/13 18:22:00 Dilaudid 2013-0 No Estela 1 mg, Mem oria 6-11 Michelle Route: l 23:21: [place] IVP, ONCE, Her prieto 00 Dosing Weight 72.727, kg, Priority: STAT, Start date: 01/12/13 18:21:00, Stop date: 01/12/13 18:21:00 Dilaudid 2013-0 No Estela 1 mg, Mem oria 6-11 Michelle Route: l 23:21: [place] IVP, ONCE, Her prieto 00 Dosing Weight 72.727, kg, Priority: STAT, Start date: 01/12/13 18:21:00, Stop date: 01/12/13 18:21:00 Dilaudid 2013-0 No Estela 1 mg, Mem oria 6-11 Michelle Route: l 23:21: [place] IVP, ONCE, Her prieto 00 Dosing Weight 72.727, kg, Priority: STAT, Start date: 01/12/13 18:21:00, Stop date: 01/12/13 18:21:00 Dilaudid 2013-0 No Estela 1 mg, Mem oria 6-11 Michelle Route: l 23:21: [place] IVP, ONCE, Her prieto 00 Dosing Weight 72.727, kg, Priority: STAT, Start date: 01/12/13 18:21:00, Stop date: 01/12/13 18:21:00 Dilaudid 2013-0 No Estela 1 mg, Mem oria 6-11 Michelle Route: l 23:21: [place] IVP, ONCE, Her prieto 00 Dosing Weight 72.727, kg, Priority: STAT, Start date: 01/12/13 18:21:00, Stop date: 01/12/13 18:21:00 Dilaudid 2013-0 No Estela 1 mg, Mem oria 6-11 Michelle Route: l 23:21: [place] IVP, ONCE, Her prieto 00 Dosing Weight 72.727, kg, Priority: STAT, Start date: 01/12/13 18:21:00, Stop date: 01/12/13 18:21:00 Dilaudid 2012-0 No Estela 1 mg, Mem oria 6-11 Michelle Route: l 23:21: [place] IVP, ONCE, Her prieto 00 Dosing Weight 72.727, kg, Priority: STAT, Start date: 01/12/13 18:21:00, Stop date: 01/12/13 18:21:00 Dilaudid 2012-0 No Estela 1 mg, Mem oria 6-11 Michelle Route: l 23:21: [place] IVP, ONCE, Her prieto 00 Dosing Weight 72.727, kg, Priority: STAT, Start date: 01/12/13 18:21:00, Stop date: 01/12/13 18:21:00 ondansetron 2012-0 No Alysa L 4 mg, 2 Memoria 6-11 May mL, Route: l 23:06: IVP, Drug Derek form: INJ, Q8H, Dosing Weight 72.727, kg, PRN Nausea & Vomiting, Start date: 01/12/13 18:06:00, Duration: 30 day, Stop date: 02/11/13 18:05:00 Saline 2012-0 No Alysa L 5 ml, Memor ia Flush 0.9% 6-11 May Route: l 23:06: IVP, Drug Derek Form: INJ, Dosing Weight 72.727, kg, PRN, PRN Line Flush, Start date: 01/12/13 18:06:00, Duration: 30 day, Stop date: 02/11/13 18:05:00 morphine 2012-0 No Alysa L 2 mg, 1 M emoria Sulfate 6-11 May mL, Route: l 23:06: IVP, Drug Derek 00 form: INJ, Q1H, Dosing Weight 72.727, kg, PRN Pain Score 7-10, Start date: 01/12/13 18:06:00, Duration: 30 day, Stop date: 02/11/13 18:05:00 Sodium 2013-0 No Alysa L 1,000 mL, M emoria Chloride 6-11 May Rate: 50 l 0.9% IV 23:06: ml/hr, [place] 1,000 mL 00 Infuse over: 20 hr, Route: IV, Dosing Weight 72.727 kg, Total Volume: 1,000, Start date: 01/12/13 18:06:00, Duration: 30 day, Stop date: 02/11/13 18:05:00 ondansetron 2012-0 No Alysa L 4 mg, 2 Memoria 6-11 May mL, Route: l 23:06: IVP, Drug [place] 00 form: INJ, Q8H, Dosing Weight 72.727, kg, PRN Nausea & Vomiting, Start date: 01/12/13 18:06:00, Duration: 30 day, Stop date: 02/11/13 18:05:00 Saline 2012-0 No Alysa L 5 ml, Memor ia Flush 0.9% 6-11 May Route: l 23:06: IVP, Drug [place] 00 Form: INJ, Dosing Weight 72.727, kg, PRN, PRN Line Flush, Start date: 01/12/13 18:06:00, Duration: 30 day, Stop date: 02/11/13 18:05:00 morphine 2012-0 No Alysa L 2 mg, 1 M emoria Sulfate 6-11 May mL, Route: l 23:06: IVP, Drug [place] 00 form: INJ, Q1H, Dosing Weight 72.727, kg, PRN Pain Score 7-10, Start date: 01/12/13 18:06:00, Duration: 30 day, Stop date: 02/11/13 18:05:00 Sodium 2013-0 No Alysa L 1,000 mL, M emoria Chloride 6-11 May Rate: 50 l 0.9% IV 23:06: ml/hr, Derek 1,000 mL 00 Infuse over: 20 hr, Route: IV, Dosing Weight 72.727 kg, Total Volume: 1,000, Start date: 01/12/13 18:06:00, Duration: 30 day, Stop date: 02/11/13 18:05:00 ondansetron 2012-0 No Alysa L 4 mg, 2 Memoria 6-11 May mL, Route: l 23:06: IVP, Drug Derek 00 form: INJ, Q8H, Dosing Weight 72.727, kg, PRN Nausea & Vomiting, Start date: 01/12/13 18:06:00, Duration: 30 day, Stop date: 02/11/13 18:05:00 Saline 2012-0 No Alysa L 5 ml, Memor ia Flush 0.9% 6-11 May Route: l 23:06: IVP, Drug [place] 00 Form: INJ, Dosing Weight 72.727, kg, PRN, PRN Line Flush, Start date: 01/12/13 18:06:00, Duration: 30 day, Stop date: 02/11/13 18:05:00 morphine 2012-0 No Alysa L 2 mg, 1 M emoria Sulfate 6-11 May mL, Route: l 23:06: IVP, Drug Derek 00 form: INJ, Q1H, Dosing Weight 72.727, kg, PRN Pain Score 7-10, Start date: 01/12/13 18:06:00, Duration: 30 day, Stop date: 02/11/13 18:05:00 Sodium 2013-0 No Alysa L 1,000 mL, M emoria Chloride 6-11 May Rate: 50 l 0.9% IV 23:06: ml/hr, [place] 1,000 mL 00 Infuse over: 20 hr, Route: IV, Dosing Weight 72.727 kg, Total Volume: 1,000, Start date: 01/12/13 18:06:00, Duration: 30 day, Stop date: 02/11/13 18:05:00 ondansetron 2013-0 No Alysa L 4 mg, 2 Memoria 6-11 May mL, Route: l 23:06: IVP, Drug Derek 00 form: INJ, Q8H, Dosing Weight 72.727, kg, PRN Nausea & Vomiting, Start date: 01/12/13 18:06:00, Duration: 30 day, Stop date: 02/11/13 18:05:00 Saline 2012-0 No Alysa L 5 ml, Memor ia Flush 0.9% 6-11 May Route: l 23:06: IVP, Drug [place] 00 Form: INJ, Dosing Weight 72.727, kg, PRN, PRN Line Flush, Start date: 01/12/13 18:06:00, Duration: 30 day, Stop date: 02/11/13 18:05:00 morphine 2012-0 No Alysa L 2 mg, 1 M emoria Sulfate 6-11 May mL, Route: l 23:06: IVP, Drug Derek 00 form: INJ, Q1H, Dosing Weight 72.727, kg, PRN Pain Score 7-10, Start date: 01/12/13 18:06:00, Duration: 30 day, Stop date: 02/11/13 18:05:00 Sodium 2012-0 No Alysa L 1,000 mL, M emoria Chloride 6-11 May Rate: 50 l 0.9% IV 23:06: ml/hr, Derek 1,000 mL 00 Infuse over: 20 hr, Route: IV, Dosing Weight 72.727 kg, Total Volume: 1,000, Start date: 01/12/13 18:06:00, Duration: 30 day, Stop date: 02/11/13 18:05:00 ondansetron 2012-0 No Alysa L 4 mg, 2 Memoria 6-11 May mL, Route: l 23:06: IVP, Drug Derek 00 form: INJ, Q8H, Dosing Weight 72.727, kg, PRN Nausea & Vomiting, Start date: 01/12/13 18:06:00, Duration: 30 day, Stop date: 02/11/13 18:05:00 Saline 2012-0 No Alysa L 5 ml, Memor ia Flush 0.9% 6-11 May Route: l 23:06: IVP, Drug Derek 00 Form: INJ, Dosing Weight 72.727, kg, PRN, PRN Line Flush, Start date: 01/12/13 18:06:00, Duration: 30 day, Stop date: 02/11/13 18:05:00 morphine 2012-0 No Alysa L 2 mg, 1 M emoria Sulfate 6-11 May mL, Route: l 23:06: IVP, Drug [place] 00 form: INJ, Q1H, Dosing Weight 72.727, kg, PRN Pain Score 7-10, Start date: 01/12/13 18:06:00, Duration: 30 day, Stop date: 02/11/13 18:05:00 Sodium 2013-0 No Alysa L 1,000 mL, M emoria Chloride 6-11 May Rate: 50 l 0.9% IV 23:06: ml/hr, [place] 1,000 mL 00 Infuse over: 20 hr, Route: IV, Dosing Weight 72.727 kg, Total Volume: 1,000, Start date: 01/12/13 18:06:00, Duration: 30 day, Stop date: 02/11/13 18:05:00 ondansetron 2012-0 No Alysa L 4 mg, 2 Memoria 6-11 May mL, Route: l 23:06: IVP, Drug [place] 00 form: INJ, Q8H, Dosing Weight 72.727, kg, PRN Nausea & Vomiting, Start date: 01/12/13 18:06:00, Duration: 30 day, Stop date: 02/11/13 18:05:00 Saline 2013-0 No Alysa L 5 ml, Memor ia Flush 0.9% 6-11 May Route: l 23:06: IVP, Drug [place] 00 Form: INJ, Dosing Weight 72.727, kg, PRN, PRN Line Flush, Start date: 01/12/13 18:06:00, Duration: 30 day, Stop date: 02/11/13 18:05:00 morphine 2013-0 No Alysa L 2 mg, 1 M emoria Sulfate 6-11 May mL, Route: l 23:06: IVP, Drug [place] 00 form: INJ, Q1H, Dosing Weight 72.727, kg, PRN Pain Score 7-10, Start date: 01/12/13 18:06:00, Duration: 30 day, Stop date: 02/11/13 18:05:00 Sodium 2013-0 No Alysa L 1,000 mL, M emoria Chloride 6-11 May Rate: 50 l 0.9% IV 23:06: ml/hr, [place] 1,000 mL 00 Infuse over: 20 hr, Route: IV, Dosing Weight 72.727 kg, Total Volume: 1,000, Start date: 01/12/13 18:06:00, Duration: 30 day, Stop date: 02/11/13 18:05:00 ondansetron 2013-0 No Alysa L 4 mg, 2 Memoria 6-11 May mL, Route: l 23:06: IVP, Drug [place] 00 form: INJ, Q8H, Dosing Weight 72.727, kg, PRN Nausea & Vomiting, Start date: 01/12/13 18:06:00, Duration: 30 day, Stop date: 02/11/13 18:05:00 Saline 2013-0 No Alysa L 5 ml, Memor ia Flush 0.9% 6-11 May Route: l 23:06: IVP, Drug Derek Form: INJ, Dosing Weight 72.727, kg, PRN, PRN Line Flush, Start date: 01/12/13 18:06:00, Duration: 30 day, Stop date: 02/11/13 18:05:00 morphine 2013-0 No Alysa L 2 mg, 1 M emoria Sulfate 6-11 May mL, Route: l 23:06: IVP, Drug [place] 00 form: INJ, Q1H, Dosing Weight 72.727, kg, PRN Pain Score 7-10, Start date: 01/12/13 18:06:00, Duration: 30 day, Stop date: 02/11/13 18:05:00 Sodium 2013-0 No Alysa L 1,000 mL, M emoria Chloride 6-11 May Rate: 50 l 0.9% IV 23:06: ml/hr, [place] 1,000 mL 00 Infuse over: 20 hr, Route: IV, Dosing Weight 72.727 kg, Total Volume: 1,000, Start date: 01/12/13 18:06:00, Duration: 30 day, Stop date: 02/11/13 18:05:00 ondansetron 2013-0 No Alysa L 4 mg, 2 Memoria 6-11 May mL, Route: l 23:06: IVP, Drug Derek form: INJ, Q8H, Dosing Weight 72.727, kg, PRN Nausea & Vomiting, Start date: 01/12/13 18:06:00, Duration: 30 day, Stop date: 02/11/13 18:05:00 Saline 2012-0 No Alysa L 5 ml, Memor ia Flush 0.9% 01-12 May Route: l 23:06: IVP, Drug Derek 00 Form: INJ, Dosing Weight 72.727, kg, PRN, PRN Line Flush, Start date: 01/12/13 18:06:00, Duration: 30 day, Stop date: 02/11/13 18:05:00 morphine 2012- No Alysa L 2 mg, 1 M emoria Sulfate - May mL, Route: l 23:06: IVP, Drug Derek 00 form: INJ, Q1H, Dosing Weight 72.727, kg, PRN Pain Score 7-10, Start date: 01/12/13 18:06:00, Duration: 30 day, Stop date: 02/11/13 18:05:00 Sodium 2012-0 No Alysa L 1,000 mL, M emoria Chloride 6 May Rate: 50 l 0.9% IV 23:06: ml/hr, [place] 1,000 mL 00 Infuse over: 20 hr, [...] then increase dose to 5mg-1000 mg Kombiglyze 2012- Yes 1 tab, PO, M emoria XR [...] then increase dose to 5mg-1000 mg Kombiglyze 2012- Yes 1 tab, PO, M emoria XR 5 mg-500 6-11 Daily, l mg oral 22:50: take for 2 Herm maru tablet, 18 weeks then extended increase release dose to 5mg-1000 mg, Substituti on Allowed, Maintenanc etake for 2 weeks then increase dose to 5mg-1000 mg Kombiglyze 2012- Yes 1 tab, PO, M emoria XR 5 mg-500 6-11 Daily, l mg oral 22:50: take for 2 Herm maru tablet, 18 weeks then extended increase release dose to 5mg-1000 mg, Substituti on Allowed, Maintenanc etake for 2 weeks then increase dose to 5mg-1000 mg Kombiglyze 2012-0 Yes 1 tab, PO, M emoria XR [...] on tablet, Allowed, extended Maintenanc release e Kombiglyze Yes 1 tab, PO, M emoria XR 5 6-11 Daily, l mg-1000 mg 22:50: Substituti H ermann oral 00 on tablet, Allowed, extended Maintenanc release e Kombiglyze Yes 1 tab, PO, M emoria XR 5 6-11 Daily, l mg-1000 mg 22:50: Substituti H ermann oral 00 on tablet, Allowed, extended Maintenanc release e Kombiglyze Yes 1 tab, PO, M emoria XR 5 6-11 Daily, l mg-1000 mg 22:50: Substituti H ermann oral 00 on tablet, Allowed, extended Maintenanc release e Kombiglyze Yes 1 tab, PO, M emoria XR 5 6-11 Daily, l mg-1000 mg 22:50: Substituti H ermann oral 00 on tablet, Allowed, extended Maintenanc release e Kombiglyze Yes 1 tab, PO, M emoria XR 5 6-11 Daily, l mg-1000 mg 22:50: Substituti H ermann oral 00 on tablet, Allowed, extended Maintenanc release e Kombiglyze Yes 1 tab, PO, M emoria XR 5 6-11 Daily, l mg-1000 mg 22:50: Substituti H ermann oral 00 on tablet, Allowed, extended Maintenanc release e Kombiglyze Yes 1 tab, PO, M emoria XR 5 6-11 Daily, l mg-1000 mg 22:50: Substituti H ermann oral 00 on tablet, Allowed, extended Maintenanc release e Victoza 6 Yes SUB-Q, Memori a mg/mL 6-11 Daily, l subcutaneou 22:49: Substituti [place] injection 28 on Allowed Victoza 6 Yes SUB-Q, Memori a mg/mL 6-11 Daily, l subcutaneou 22:49: Substituti [place] injection 28 on Allowed Victoza 6 Yes SUB-Q, Memori a mg/mL 6-11 Daily, l subcutaneou 22:49: Substituti [place] injection 28 on Allowed Victoza 6 Yes SUB-Q, Memori a mg/mL 6-11 Daily, l subcutaneou 22:49: Substituti [place] injection 28 on Allowed Victoza 6 Yes SUB-Q, Memori a mg/mL 6-11 Daily, l subcutaneou 22:49: Substituti Derek s injection 28 on Allowed Victoza 6 Yes SUB-Q, Memori a mg/mL 6-11 Daily, l subcutaneou 22:49: Substituti [place] injection 28 on Allowed Victoza 6 Yes SUB-Q, Memori a mg/mL 6-11 Daily, l subcutaneou 22:49: Substituti Derek s injection 28 on Allowed Victoza 6 Yes SUB-Q, Memori a mg/mL 6-11 Daily, l subcutaneou 22:49: Substituti Derek s injection 28 on Allowed ondansetron No Estela 4 mg, Memoria 01-12 Michelle Route: l 20:56: [place] IVP, Drug Herm maru 00 form: INJ, ONCE, Dosing Weight 72.727, kg, Priority: STAT, Start date: 01/12/13 15:56:00, Stop date: 01/12/13 15:56:00 ondansetron No Est[place] 4 mg, Memoria 01-12 Michelle Route: l 20:56: [place] IVP, Drug Herm maru 00 form: INJ, ONCE, Dosing Weight 72.727, kg, Priority: STAT, Start date: 01/12/13 15:56:00, Stop date: 01/12/13 15:56:00 ondansetron 2012- No [place] 4 mg, Memoria 6-11 Michelle Route: l 20:56: [place] IVP, Drug Herm maru 00 form: INJ, ONCE, Dosing Weight 72.727, kg, Priority: STAT, Start date: 01/12/13 15:56:00, Stop date: 01/12/13 15:56:00 ondansetron 2012-0 No [place] 4 mg, Memoria 6-11 Michelle Route: l 20:56: [place] IVP, Drug Herm maru 00 form: INJ, ONCE, Dosing Weight 72.727, kg, Priority: STAT, Start date: 01/12/13 15:56:00, Stop date: 01/12/13 15:56:00 ondansetron 2012-0 No Estela 4 mg, Memoria 6- Michelle Route: l 20:56: [place] IVP, Drug Herm maru 00 form: INJ, ONCE, Dosing Weight 72.727, kg, Priority: STAT, Start date: 01/12/13 15:56:00, Stop date: 01/12/13 15:56:00 ondansetron 2012-0 No Est[place] 4 mg, Memoria 6-11 Michelle Route: l 20:56: [place] IVP, Drug Herm maru 00 form: INJ, ONCE, Dosing Weight 72.727, kg, Priority: STAT, Start date: 01/12/13 15:56:00, Stop date: 01/12/13 15:56:00 ondansetron 2012-0 No Est[place] 4 mg, Memoria - Michelle Route: l 20:56: [place] IVP, Drug Herm maru 00 form: INJ, ONCE, Dosing Weight 72.727, kg, Priority: STAT, Start date: 01/12/13 15:56:00, Stop date: 01/12/13 15:56:00 ondansetron 2012-0 No Est[place] 4 mg, Memoria - Michelle Route: l 20:56: [place] IVP, Drug Herm maru 00 form: INJ, ONCE, Dosing Weight 72.727, kg, Priority: STAT, Start date: 01/12/13 15:56:00, Stop date: 01/12/13 15:56:00 Zofran 2012-0 No Est[place] 4 mg, Memor ia 6- Michelle Route: l 20:54: [place] IVP, Drug Herm maru 00 form: INJ, ONCE, Dosing Weight 72.727, kg, Priority: STAT, Start date: 01/12/13 15:54:00, Stop date: 01/12/13 15:54:00 Zofran 2012-0 No Estela 4 mg, Memor ia 6-11 Michelle Route: l 20:54: [place] IVP, Drug Herm maru 00 form: INJ, ONCE, Dosing Weight 72.727, kg, Priority: STAT, Start date: 01/12/13 15:54:00, Stop date: 01/12/13 15:54:00 Zofran 2012-0 No Estela 4 mg, Memor ia 6-11 Michelle Route: l 20:54: [place] IVP, Drug Herm maru 00 form: INJ, ONCE, Dosing Weight 72.727, kg, Priority: STAT, Start date: 01/12/13 15:54:00, Stop date: 01/12/13 15:54:00 Zofran 2012-0 No Estela 4 mg, Memor ia 6-11 Michelle Route: l 20:54: [place] IVP, Drug Herm maru 00 form: INJ, ONCE, Dosing Weight 72.727, kg, Priority: STAT, Start date: 01/12/13 15:54:00, Stop date: 01/12/13 15:54:00 Zofran 2012-0 No Estela 4 mg, Memor ia 6-11 Michelle Route: l 20:54: [place] IVP, Drug Herm maru 00 form: INJ, ONCE, Dosing Weight 72.727, kg, Priority: STAT, Start date: 01/12/13 15:54:00, Stop date: 01/12/13 15:54:00 Zofran 2012-0 No Estela 4 mg, Memor ia 6-11 Michelle Route: l 20:54: [place] IVP, Drug Herm amru 00 form: INJ, ONCE, Dosing Weight 72.727, kg, Priority: STAT, Start date: 01/12/13 15:54:00, Stop date: 01/12/13 15:54:00 Zofran 2012-0 No Estela 4 mg, Memor ia 6-11 Michelle Route: l 20:54: [place] IVP, Drug Herm maru 00 form: INJ, ONCE, Dosing Weight 72.727, kg, Priority: STAT, Start date: 01/12/13 15:54:00, Stop date: 01/12/13 15:54:00 Zofran 2013-0 No Estela 4 mg, Memor ia 6-11 [...] 01/12/13 14:03:00, Stop date: 01/12/13 14:03:00 Dilaudid 2013-0 No Estela 1 mg, 0.5 Memoria 6-11 Michelle mL, Route: l 19:03: [place] IV, Drug Anahi nn 00 form: INJ, ONCE, Dosing Weight 72.727, kg, Start date: 01/12/13 14:03:00, Stop date: 01/12/13 14:03:00 Zofran 2012-0 No Estela 4 mg, 2 Mem oria 6-11 Michelle mL, Route: l 19:03: [place] IVP, Drug Herm maru 00 form: INJ, ONCE, Dosing Weight 72.727, kg, Priority: STAT, Start date: 01/12/13 14:03:00, Stop date: 01/12/13 14:03:00 Dilaudid 2013-0 No Estela 1 mg, 0.5 Memoria 6-11 Michelle mL, Route: l 19:03: [place] IV, Drug Anahi nn 00 form: INJ, ONCE, Dosing Weight 72.727, kg, Start date: 01/12/13 14:03:00, Stop date: 01/12/13 14:03:00 Zofran 2013-0 No Estela 4 mg, 2 Mem oria 6-11 Michelle mL, Route: l 19:03: [place] IVP, Drug Herm maru 00 form: INJ, ONCE, Dosing Weight 72.727, kg, Priority: STAT, Start date: 01/12/13 14:03:00, Stop date: 01/12/13 14:03:00 Dilaudid 2013-0 No Estela 1 mg, 0.5 Memoria 6-11 Michelle mL, Route: l 19:03: [place] IV, Drug Anahi nn 00 form: INJ, ONCE, Dosing Weight 72.727, kg, Start date: 01/12/13 14:03:00, Stop date: 01/12/13 14:03:00 Zofran 2013-0 No Estela 4 mg, 2 Mem oria 6-11 Michelle mL, Route: l 19:03: Helander IVP, Drug Herm maru 00 form: INJ, ONCE, Dosing Weight 72.727, kg, Priority: STAT, Start date: 01/12/13 14:03:00, Stop date: 01/12/13 14:03:00 Dilaudid 2013-0 No Estela 1 mg, 0.5 Memoria 6-11 Michelle mL, Route: l 19:03: Helander IV, Drug Anahi nn 00 form: INJ, ONCE, Dosing Weight 72.727, kg, Start date: 01/12/13 14:03:00, Stop date: 01/12/13 14:03:00 Zofran 2013-0 No Estela 4 mg, 2 Mem oria 6-11 Michelle mL, Route: l 19:03: Helander IVP, Drug Herm maru 00 form: INJ, ONCE, Dosing Weight 72.727, kg, Priority: STAT, Start date: 01/12/13 14:03:00, Stop date: 01/12/13 14:03:00 Dilaudid 2013-0 No Estela 1 mg, 0.5 Memoria 6-11 Michelle mL, Route: l 19:03: Helander IV, Drug Anahi nn 00 form: INJ, ONCE, Dosing Weight 72.727, kg, Start date: 01/12/13 14:03:00, Stop date: 01/12/13 14:03:00 Zofran 2013-0 No Estela 4 mg, 2 Mem oria 6-11 Michelle mL, Route: l 19:03: Helander IVP, Drug Herm maru 00 form: INJ, ONCE, Dosing Weight 72.727, kg, Priority: STAT, Start date: 01/12/13 14:03:00, Stop date: 01/12/13 14:03:00 Dilaudid 2013-0 No Estela 1 mg, 0.5 Memoria 6-11 Michelle mL, Route: l 19:03: Helander IV, Drug Anahi nn 00 form: INJ, ONCE, Dosing Weight 72.727, kg, Start date: 01/12/13 14:03:00, Stop date: 01/12/13 14:03:00 Zofran 2013-0 No Estela 4 mg, 2 Mem oria 6-11 Michelle mL, Route: l 19:03: Helander IVP, Drug Herm maru 00 form: INJ, ONCE, Dosing Weight 72.727, kg, Priority: STAT, Start date: 01/12/13 14:03:00, Stop date: 01/12/13 14:03:00 Dilaudid 2013-0 No Estela 1 mg, 0.5 Memoria 6-11 Michelle mL, Route: l 19:03: Helander IV, Drug Anahi nn 00 form: INJ, ONCE, Dosing Weight 72.727, kg, Start date: 01/12/13 14:03:00, Stop date: 01/12/13 14:03:00 Zofran 2013-0 No Estela 4 mg, 2 Mem oria 6-11 Michelle mL, Route: l 19:03: Helander IVP, Drug Herm maru 00 form: INJ, ONCE, Dosing Weight 72.727, kg, Priority: STAT, Start date: 01/12/13 14:03:00, Stop date: 01/12/13 14:03:00 Dilaudid 2013-0 No Estela 1 mg, 0.5 Memoria 6-11 Michelle mL, Route: l 19:03: Helander IV, Drug Anahi nn 00 form: INJ, ONCE, Dosing Weight 72.727, kg, Start date: 01/12/13 14:03:00, Stop date: 01/12/13 14:03:00 morphine 2012-0 No Anmol G 8 mg, Mem oria Sulfate 6-11 [place] Route: l 17:42: IVP, ONCE, [place] 00 Dosing Weight 72.727, kg, Priority: STAT, Start date: 01/12/13 12:42:00, Stop date: 01/12/13 12:42:00 morphine 2012-0 No Anmol G 8 mg, Mem oria Sulfate 6-11 [place] Route: l 17:42: IVP, ONCE, [place] 00 Dosing Weight 72.727, kg, Priority: STAT, Start date: 01/12/13 12:42:00, Stop date: 01/12/13 12:42:00 morphine 2012-0 No Anmol G 8 mg, Mem oria Sulfate 6-11 [place] Route: l 17:42: IVP, ONCE, [place] 00 Dosing Weight 72.727, kg, Priority: STAT, Start date: 01/12/13 12:42:00, Stop date: 01/12/13 12:42:00 morphine 2012-0 No Anmol G 8 mg, Mem oria Sulfate 6-11 [place] Route: l 17:42: IVP, ONCE, [place] 00 Dosing Weight 72.727, kg, Priority: STAT, Start date: 01/12/13 12:42:00, Stop date: 01/12/13 12:42:00 morphine 2012-0 No Anmol G 8 mg, Mem oria Sulfate 6-11 [place] Route: l 17:42: IVP, ONCE, Derek 00 Dosing Weight 72.727, kg, Priority: STAT, Start date: 01/12/13 12:42:00, Stop date: 01/12/13 12:42:00 morphine 2012-0 No Anmol G 8 mg, Mem oria Sulfate 6-11 [place] Route: l 17:42: IVP, ONCE, Derek 00 Dosing Weight 72.727, kg, Priority: STAT, Start date: 01/12/13 12:42:00, Stop date: 01/12/13 12:42:00 morphine 2012-0 No Anmol G 8 mg, Mem oria Sulfate 6-11 [place] Route: l 17:42: IVP, ONCE, [place] 00 Dosing Weight 72.727, kg, Priority: STAT, Start date: 01/12/13 12:42:00, Stop date: 01/12/13 12:42:00 morphine 2012-0 No Anmol G 8 mg, Mem oria Sulfate 6-11 [place] Route: l 17:42: IVP, ONCE, [place] Dosing Weight 72.727, kg, Priority: STAT, Start date: 01/12/13 12:42:00, Stop date: 01/12/13 12:42:00 midazolam 2012-0 No Anmol G 1 mg, Me moria 6-11 [place] Route: l 17:41: IVP, ONCE, Derek 00 Dosing Weight 72.727, kg, Start date: 01/12/13 12:41:00, Stop date: 01/12/13 12:41:00 midazolam 2012-0 No Anmol G 1 mg, Me moria 6-11 [place] Route: l 17:41: IVP, ONCE, [place] Dosing Weight 72.727, kg, Start date: 01/12/13 12:41:00, Stop date: 01/12/13 12:41:00 midazolam 2012-0 No Anmol G 1 mg, Me moria 6-11 [place] Route: l 17:41: IVP, ONCE, Derek 00 Dosing Weight 72.727, kg, Start date: 01/12/13 12:41:00, Stop date: 01/12/13 12:41:00 midazolam 2012-0 No Anmol G 1 mg, Me moria 6-11 [place] Route: l 17:41: IVP, ONCE, [place] 00 Dosing Weight 72.727, kg, Start date: 01/12/13 12:41:00, Stop date: 01/12/13 12:41:00 midazolam 2012-0 No Anmol G 1 mg, Me moria 6-11 [place] Route: l 17:41: IVP, ONCE, [place] 00 Dosing Weight 72.727, kg, Start date: 01/12/13 12:41:00, Stop date: 01/12/13 12:41:00 midazolam 2012-0 No Anmol G 1 mg, Me moria 6-11 [place] Route: l 17:41: IVP, ONCE, [place] 00 Dosing Weight 72.727, kg, Start date: 01/12/13 12:41:00, Stop date: 01/12/13 12:41:00 midazolam 2012-0 No Anmol G 1 mg, Me moria 6-11 [place] Route: l 17:41: IVP, ONCE, [place] Dosing Weight 72.727, kg, Start date: 01/12/13 12:41:00, Stop date: 01/12/13 12:41:00 midazolam 2012-0 No Anmol G 1 mg, Me moria 6-11 [place] Route: l 17:41: IVP, ONCE, [place] Dosing Weight 72.727, kg, Start date: 01/12/13 12:41:00, Stop date: 01/12/13 12:41:00 morphine 2012-0 No Estela 4 mg, 1 M emoria Sulfate 6-11 Michelle mL, Route: l 15:57: [place] IVP, Drug Herm maru 00 form: INJ, ONCE, Dosing Weight 76.818, kg, Priority: STAT, Start date: 01/12/13 10:57:00, Stop date: 01/12/13 10:57:00 morphine 2012-0 No Estela 4 mg, 1 M emoria Sulfate 6-11 Michelle mL, Route: l 15:57: [place] IVP, Drug Herm maru 00 form: INJ, ONCE, Dosing Weight 76.818, kg, Priority: STAT, Start date: 01/12/13 10:57:00, Stop date: 01/12/13 10:57:00 morphine 2012-0 No Estela 4 mg, 1 M emoria Sulfate 6-11 Michelle mL, Route: l 15:57: [place] IVP, Drug Herm maru 00 form: INJ, ONCE, Dosing Weight 76.818, kg, Priority: STAT, Start date: 01/12/13 10:57:00, Stop date: 01/12/13 10:57:00 morphine 2012-0 No Estela 4 mg, 1 M emoria Sulfate 6-11 Michelle mL, Route: l 15:57: [place] IVP, Drug Herm maru 00 form: INJ, ONCE, Dosing Weight 76.818, kg, Priority: STAT, Start date: 01/12/13 10:57:00, Stop date: 01/12/13 10:57:00 morphine 2013-0 No Estela 4 mg, 1 M emoria Sulfate 6-11 Michelle mL, Route: l 15:57: [place] IVP, Drug Herm maru 00 form: INJ, ONCE, Dosing Weight 76.818, kg, Priority: STAT, Start date: 01/12/13 10:57:00, Stop date: 01/12/13 10:57:00 morphine 2013-0 No Estela 4 mg, 1 M emoria Sulfate 6-11 Michelle mL, Route: l 15:57: [place] IVP, Drug Herm maru 00 form: INJ, ONCE, Dosing Weight 76.818, kg, Priority: STAT, Start date: 01/12/13 10:57:00, Stop date: 01/12/13 10:57:00 morphine 2013-0 No Estela 4 mg, 1 M emoria Sulfate 6-11 Michelle mL, Route: l 15:57: [place] IVP, Drug Herm maru 00 form: INJ, ONCE, Dosing Weight 76.818, kg, Priority: STAT, Start date: 01/12/13 10:57:00, Stop date: 01/12/13 10:57:00 morphine 2013-0 No Estela 4 mg, 1 M emoria Sulfate 6-11 Michelle mL, Route: l 15:57: [place] IVP, Drug Herm maru 00 form: INJ, ONCE, Dosing Weight 76.818, kg, Priority: STAT, Start date: 01/12/13 10:57:00, Stop date: 01/12/13 10:57:00 benzocaine 2012-0 Yes Isolde 4 drp, Mem oria otic 20% 1-17 [place] RIGHT EAR, l solution 19:22: Aguhar Q2H, PRN Her prieto 03 as needed for pain, 1 btl, Substitute Allowed benzocaine 2012- Yes Isolde 4 drp, Mem oria otic 20% 1-17 [place] RIGHT EAR, l solution 19:22: Aguhar Q2H, PRN Her prieto 03 as needed for pain, 1 btl, Substitute Allowed benzocaine 2012- Yes Isolde 4 drp, Mem oria otic 20% 1-17 [place] RIGHT EAR, l solution 19:22: Aguhar Q2H, PRN Her prieto 03 as needed for pain, 1 btl, Substitute Allowed benzocaine 2012-0 Yes Isolde 4 drp, Mem oria otic 20% 1-17 [place] RIGHT EAR, l solution 19:22: Aguhar Q2H, PRN Her prieto 03 as needed for pain, 1 btl, Substitute Allowed benzocaine 2012- Yes Isolde 4 drp, Mem oria otic 20% 1-17 [place] RIGHT EAR, l solution 19:22: Aguhar Q2H, PRN Her prieto 03 as needed for pain, 1 btl, Substitute Allowed benzocaine 2012- Yes Isolde 4 drp, Mem oria otic 20% 1-17 [place] RIGHT EAR, l solution 19:22: Aguhar Q2H, PRN Her prieto 03 as needed for pain, 1 btl, Substitute Allowed benzocaine 2012-0 Yes Isolde 4 drp, Mem oria otic 20% 1-17 [place] RIGHT EAR, l solution 19:22: Ag[place]ar Q2H, PRN Her prieto 03 as needed for pain, 1 btl, Substitute Allowed benzocaine 2012-0 Yes Isolde 4 drp, Mem oria otic 20% 1-17 [place] RIGHT EAR, l solution 19:22: Aguhar Q2H, PRN Her prieto 03 as needed for pain, 1 btl, Substitute Allowed Motrin 800 2012- Yes Isolde 800 mg, 1 Memoria mg oral 1-17 [place] tab, PO, l tablet 19:21: Aguhar Q8H, PRN, Derian mahoney 51 Take with food, 30 tab, Pain, Substituti on AllowedTak e with food Motrin 800 2012- Yes Isolde 800 mg, 1 Memoria mg oral 1-17 [place] tab, PO, l tablet 19:21: Aguhar Q8H, PRN, Herm maru 51 Take with food, 30 tab, Pain, Substituti on AllowedTak e with food Motrin 800 2012-0 Yes Isolde 800 mg, 1 Memoria mg oral 1-17 [place] tab, PO, l tablet 19:21: [place] Q8H, PRN, Derian maru 51 Take with food, 30 tab, Pain, Substituti on AllowedTak e with food Motrin 800 Yes Isolde 800 mg, 1 Memoria mg oral 1-17 [place] tab, PO, l tablet 19:21: Aguhar Q8H, PRN, Herm maru 51 Take with food, 30 tab, Pain, Substituti on AllowedTak e with food Motrin 800 Yes Isolde 800 mg, 1 Memoria mg oral 1-17 [place] tab, PO, l tablet 19:21: Aguhar Q8H, PRN, Herm maru 51 Take with food, 30 tab, Pain, Substituti on AllowedTak e with food Motrin 800 Yes Isolde 800 mg, 1 Memoria mg oral 1-17 [place] tab, PO, l tablet 19:21: Aguhar Q8H, PRN, Herm maru 51 Take with food, 30 tab, Pain, Substituti on AllowedTak e with food Motrin 800 Yes Isolde 800 mg, 1 Memoria mg oral -17 [place] tab, PO, l tablet 19:21: Aguhar Q8H, PRN, Herm maru 51 Take with food, 30 tab, Pain, Substituti on AllowedTak e with food Motrin 800 Yes Isolde 800 mg, 1 Memoria mg oral 1-17 [place] tab, PO, l tablet 19:21: Ag[place] Q8H, PRN, Herm maru 51 Take with food, 30 tab, Pain, Substituti on AllowedTak e with food Cortisporin Yes Isolde 2 drp, Me moria Otic 1-17 [place] RIGHT EAR, l solution 19:20: Aguhar QID, 1 Anahi nn 56 btl, Substitute Allowed, SOLN Cortisporin Yes Isolde 2 drp, Me moria Otic 1-17 [place] RIGHT EAR, l solution 19:20: Aguhar QID, 1 Anahi nn 56 btl, Substitute Allowed, SOLN Cortisporin 2012- Yes Isolde 2 drp, Me moria Otic 1-17 [place] RIGHT EAR, l solution 19:20: Aguhar QID, 1 Anahi nn 56 btl, Substitute Allowed, SOLN Cortisporin Yes Isolde 2 drp, Me moria Otic 1-17 [place] RIGHT EAR, l solution 19:20: Aguhar QID, 1 Anahi nn 56 btl, Substitute Allowed, SOLN Cortisporin 2012- Yes Isolde 2 drp, Me moria Otic 1-17 [place] RIGHT EAR, l solution 19:20: Aguhar QID, 1 Anahi nn 56 btl, Substitute Allowed, SOLN Cortisporin Yes Isolde 2 drp, Me moria Otic 1-17 [place] RIGHT EAR, l solution 19:20: Aguhar QID, 1 Anahi nn 56 btl, Substitute Allowed, SOLN Cortisporin Yes Isolde 2 drp, Me moria Otic 1-17 [place] RIGHT EAR, l solution 19:20: Aguhar QID, 1 Anahi nn 56 btl, Substitute Allowed, SOLN Cortisporin Yes Isolde 2 drp, Me moria Otic 1-17 [place] RIGHT EAR, l solution 19:20: Aguhar QID, 1 Anahi nn 56 btl, Substitute Allowed, SOLN ofloxacin No Isolde 5 drp, Seymour vanna otic 0.3% -17 [place] Route: l solution 18:45: Aguhar RIGHT EAR, H [place] 00 ONCE, Start date: 08/20/12 12:45:00, Stop date: 08/20/12 12:45:00 ofloxacin No Isolde 5 drp, [place] vanna otic 0.3% -17 [place] Route: l solution 18:45: Ag[place] RIGHT EAR, H ermann 00 ONCE, Start date: 08/20/12 12:45:00, Stop date: 08/20/12 12:45:00 ofloxacin No Isolde 5 drp, [place] vanna otic 0.3% -17 [place] Route: l solution 18:45: Ag[place] RIGHT EAR, H ermann 00 ONCE, Start date: 08/20/12 12:45:00, Stop date: 08/20/12 12:45:00 ofloxacin No Isolde 5 drp, [place] vanna otic 0.3% -17 [place] Route: l solution 18:45: Ag[place]ar RIGHT EAR, H ermann 00 ONCE, Start date: 08/20/12 12:45:00, Stop date: 08/20/12 12:45:00 ofloxacin 2012-0 No Isolde 5 drp, [place] vanna otic 0.3% 1-17 [place] Route: l solution 18:45: [place] RIGHT EAR, H ermann 00 ONCE, Start date: 08/20/12 12:45:00, Stop date: 08/20/12 12:45:00 ofloxacin 2012-0 No Isolde 5 drp, [place] vanna otic 0.3% 1-17 [place] Route: l solution 18:45: Ag[place]ar RIGHT EAR, H [place] 00 ONCE, Start date: 08/20/12 12:45:00, Stop date: 08/20/12 12:45:00 ofloxacin 2012-0 No Isolde 5 drp, [place]ym[place] vanna otic 0.3% 1-17 [place] Route: l solution 18:45: Ag[place]ar RIGHT EAR, H [place] 00 ONCE, Start date: 08/20/12 12:45:00, Stop date: 08/20/12 12:45:00 ofloxacin 2012-0 No Isolde 5 drp, Seymour vanna otic 0.3% 1-17 [place] Route: l solution 18:45: Ag[place]ar RIGHT EAR, H ermann 00 ONCE, Start date: 08/20/12 12:45:00, Stop date: 08/20/12 12:45:00 pneumococca 2010-0 No SYSTEM 0.5 ml, M emoria l 23-valent 3-16 SYSTEM Route: IM, l vaccine 14:00: Start date: 10/17/09 9:00:00, Stop date: 10/17/09 9:00:00 pneumococca 2010-0 No SYSTEM 0.5 ml, M emoria l 23-valent 3-16 SYSTEM Route: IM, l vaccine 14:00: Start date: 10/17/09 9:00:00, Stop date: 10/17/09 9:00:00 pneumococca 2010-0 No SYSTEM 0.5 ml, M emoria l 23-valent 3-16 SYSTEM Route: IM, l vaccine 14:00: Start date: 10/17/09 9:00:00, Stop date: 10/17/09 9:00:00 pneumococca 2010-0 No SYSTEM 0.5 ml, M emoria l 23-valent 3-16 SYSTEM Route: IM, l vaccine 14:00: date: 10/17/09 9:00:00, Stop date: 10/17/09 9:00:00 pneumococca 2010-0 No SYSTEM 0.5 ml, M emoria l 23-valent 3-16 SYSTEM Route: IM, l vaccine 14:00: date: 10/17/09 9:00:00, Stop date: 10/17/09 9:00:00 pneumococca 2010-0 No SYSTEM 0.5 ml, M emoria l 23-valent 3-16 SYSTEM Route: IM, l vaccine 14:00: date: 10/17/09 9:00:00, Stop date: 10/17/09 9:00:00 pneumococca 2010-0 No SYSTEM 0.5 ml, M emoria l 23-valent 3-16 SYSTEM Route: IM, l vaccine 14:00: date: 10/17/09 9:00:00, Stop date: 10/17/09 9:00:00 pneumococca 2010-0 No SYSTEM 0.5 ml, M emoria l 23-valent 3-16 SYSTEM Route: IM, l vaccine 14:00: date: 10/17/09 9:00:00, Stop date: 10/17/09 9:00:00 Immunizations Ordered Filled Immunization Date Status Comments [facility] e Immunization Name Name TDAP 2021-08-14 Completed [facility]00 [facility] TDAP 2021-08-14 Completed [facility] 00:00:00 [facility] TDAP 2021-08-14 Completed [facility] 00:00:00 [facility] TDAP 2021-08-14 Completed [facility] 00:00:00 [facility] TDAP 2021-08-14 Completed [facility] 00:00:00 [facility] TDAP 2021-08-14 Completed [facility] 00[facility]00:00 [facility] TDAP 2021-08-14 Completed [facility] 00:00:00 [facility] Influenza Virus 2021-05-16 Completed [facility], 00:00:00 [place] [facility] Preserv and ABX Branch Free 6 MO-64 YRS Influenza Virus 2021-05-16 Completed [facility], 00:00:00 [place] [facility] Preserv and ABX Branch Free 6 MO-64 YRS Influenza Virus 2021-05-16 Completed [facility], 00:00:00 [place] [facility] Preserv and ABX Branch Free 6 MO-64 YRS Influenza Virus 2021-05-16 Completed [facility], 00:00:00 [place] [facility] Preserv and ABX Branch Free 6 MO-64 YRS Influenza Virus 2021-05-16 Completed [facility], 00:00:00 [place] [facility] Preserv and ABX Branch Free 6 MO-64 YRS Influenza Virus 2021-05-16 Completed [facility], 00:00:00 [place] [facility] Preserv and ABX Branch Free 6 MO-64 YRS Influenza Virus 2021-05-16 Completed [facility], 00:00:00 [place] [facility] Preserv and ABX Branch Free 6 MO-64 YRS Influenza Virus 2021-05-16 Completed [facility], 00:00:00 [place] [facility] Preserv and ABX Branch Free 6 MO-64 YRS Influenza Virus 2021-05-16 Completed [facility], 00:00:00 [place] [facility] Preserv and ABX Branch Free 6 MO-64 YRS Influenza Virus 2021-05-16 Completed [facility], 00:00:00 [place] [facility] Preserv and ABX Branch Free 6 MO-64 YRS Influenza Virus 2021-05-16 Completed [facility], 00:00:00 [place] [facility] Preserv and ABX Branch Free 6 MO-64 YRS Influenza Virus 2021-05-16 Completed [facility], 00:00:00 [place] [facility] Preserv and ABX Branch Free 6 MO-64 YRS Influenza Virus 2021-05-16 Completed [facility], 00:00:00 [place] [facility] Preserv and ABX Branch Free 6 MO-64 YRS Influenza Virus 2021-05-16 Completed [facility], 00:00:00 [place] [facility] Preserv and ABX Branch Free 6 MO-64 YRS Influenza Virus 2021-05-16 Completed [facility], 00:00:00 [place] [facility] Preserv and ABX Branch Free 6 MO-64 YRS Influenza Virus 2021-05-16 Completed [facility], 00:00:00 [place] [facility] Preserv and ABX Branch Free 6 MO-64 YRS Influenza Virus 2021-05-16 Completed [facility], 00:00:00 [place] [facility] Preserv and ABX Branch Free 6 MO-64 YRS Influenza Virus 2021-05-16 Completed [facility], 00:00:00 [place] [facility] Preserv and ABX Branch Free 6 MO-64 YRS Influenza Virus 2021-05-16 Completed [facility], 00:00:00 [place] [facility] Preserv and ABX Branch Free 6 MO-64 YRS Influenza Virus 2021-05-16 Completed [facility], 00:00:00 [place] [facility] Preserv and ABX Branch Free 6 MO-64 YRS Influenza Virus 2021-05-16 Completed [facility], 00:00:00 [place] [facility] Preserv and ABX Branch Free 6 MO-64 YRS Influenza Virus 2021-05-16 Completed [facility], 00:00:00 [place] [facility] Preserv and ABX Branch Free 6 MO-64 YRS Influenza Virus 2021-05-16 Completed [facility], 00:00:00 [place] [facility] Preserv and ABX Branch Free 6 MO-64 YRS Influenza Virus 2021-05-16 Completed [facility], 00:00:00 [place] [facility] Preserv and ABX Branch Free 6 MO-64 YRS Influenza Virus 2021-05-16 Completed [facility], 00:00:00 [place] [facility] Preserv and ABX Branch Free 6 MO-64 YRS Influenza Virus 2021-05-16 Completed [facility], 00:00:00 [place] [facility] Preserv and ABX Branch Free 6 MO-64 YRS Influenza Virus 2021-05-16 Completed [facility], 00:00:00 [place] [facility] Preserv and ABX Branch Free 6 MO-64 YRS Influenza Virus 2021-05-16 Completed [facility], 00:00:00 [place] [facility] Preserv and ABX Branch Free 6 MO-64 YRS Influenza Virus 2021-05-16 Completed [facility], 00:00:00 [place] [facility] Preserv and ABX Branch Free 6 MO-64 YRS Influenza Virus 2021-05-16 Completed [facility], 00:00:00 [place] [facility] Preserv and ABX Branch Free 6 MO-64 YRS Influenza Virus 2021-05-16 Completed [facility], 00:00:00 [place] [facility] Preserv and ABX Branch Free 6 MO-64 YRS Influenza Virus 2021-05-16 Completed [facility], 00:00:00 [place] [facility] Preserv and ABX Branch Free 6 MO-64 YRS Influenza Virus 2021-05-16 Completed [facility], 00:00:00 [place] [facility] Preserv and ABX Branch Free 6 MO-64 YRS Influenza Virus 2021-05-16 Completed [facility], 00:00:00 [place] [facility] Preserv and ABX Branch Free 6 MO-64 YRS Influenza Virus 2021-05-16 Completed [facility], 00:00:00 [place] [facility] Preserv and ABX Branch Free 6 MO-64 YRS Influenza Virus 2021-05-16 Completed [facility], 00:00:00 [place] [facility] Preserv and ABX Branch Free 6 MO-64 YRS Influenza Virus 2021-05-16 Completed [facility], 00:00:00 [place] [facility] Preserv and ABX Branch Free 6 MO-64 YRS Influenza Virus 2021-05-16 Completed [facility], 00:00:00 [place] [facility] Preserv and ABX Branch Free 6 MO-64 YRS Influenza Virus 2021-05-16 Completed [facility], 00:00:00 [place] [facility] Preserv and ABX Branch Free 6 MO-64 YRS Influenza Virus 2021-05-16 Completed [facility], 00:00:00 [place] [facility] Preserv and ABX Branch Free 6 MO-64 YRS Influenza Virus 2021-05-16 Completed [facility], 00:00:00 [place] [facility] Preserv and ABX Branch Free 6 MO-64 YRS Influenza Virus 2021-05-16 Completed [facility], 00:00:00 [place] [facility] Preserv and ABX Branch Free 6 MO-64 YRS Influenza Virus 2021-05-16 Completed [facility], 00:00:00 [place] [facility] Preserv and ABX Branch Free 6 MO-64 YRS Influenza Virus 2021-05-16 Completed [facility], 00:00:00 [place] [facility] Preserv and ABX Branch Free 6 MO-64 YRS Influenza Virus 2021-05-16 Completed [facility], 00:00:00 [place] [facility] Preserv and ABX Branch Free 6 MO-64 YRS Influenza Virus 2021-05-16 Completed [facility], 00:00:00 [place] [facility] Preserv and ABX Branch Free 6 MO-64 YRS Influenza Virus 2021-05-16 Completed [facility], 00:00:00 [place] [facility] Preserv and ABX Branch Free 6 MO-64 YRS Influenza Virus 2021-05-16 Completed [facility], 00:00:00 [place] [facility] Preserv and ABX Branch Free 6 MO-64 YRS Influenza Virus 2021-05-16 Completed [facility], 00:00:00 [place] [facility] Preserv and ABX Branch Free 6 MO-64 YRS Influenza Virus 2021-05-16 Completed [facility], 00:00:00 [place] [facility] Preserv and ABX Branch Free 6 MO-64 YRS Influenza Virus 2021-05-16 Completed [facility], 00:00:00 [place] [facility] Preserv and ABX Branch Free 6 MO-64 YRS Influenza Virus 2021-05-16 Completed [facility], 00:00:00 [place] [facility] Preserv and ABX Branch Free 6 MO-64 YRS Influenza Virus 2021-05-16 Completed [facility], 00:00:00 [place] [facility] Preserv and ABX Branch Free 6 MO-64 YRS Influenza Virus 2021-05-16 Completed [facility], 00:00:00 [place] [facility] Preserv and ABX Branch Free 6 MO-64 YRS Influenza Virus 2021-05-16 Completed [facility], 00:00:00 [place] [facility] Preserv and ABX Branch Free 6 MO-64 YRS Influenza Virus 2021-05-16 Completed [facility], 00:00:00 [place] [facility] Preserv and ABX Branch Free 6 MO-64 YRS Influenza Virus 2021-05-16 Completed [facility], 00:00:00 [place] [facility] Preserv and ABX Branch Free 6 MO-64 YRS Influenza Virus 2021-05-16 Completed [facility], 00:00:00 [place] [facility] Preserv and ABX Branch Free 6 MO-64 YRS Influenza Virus 2021-05-16 Completed [facility], 00:00:00 [place] [facility] Preserv and ABX Branch Free 6 MO-64 YRS Influenza Virus 2021-05-16 Completed [facility], 00:00:00 [place] [facility] Preserv and ABX Branch Free 6 MO-64 YRS Influenza Virus 2021-05-16 Completed [facility], 00:00:00 [place] [facility] Preserv and ABX Branch Free 6 MO-64 YRS Influenza Virus 2021-05-16 Completed [facility], 00:00:00 [place] [facility] Preserv and ABX Branch Free 6 MO-64 YRS Influenza Virus 2021-05-16 Completed [facility], 00:00:00 [place] [facility] Preserv and ABX Branch Free 6 MO-64 YRS Influenza Virus 2017-05-08 Completed [facility] 00:00:00 [place] [facility] 18-64 YRS Branch Influenza Virus 2017-05-08 Completed [facility] ID 00:00:00 [place] [facility] 18-64 YRS Branch Influenza Virus 2017-05-08 Completed [facility] ID 00:00:00 [place] [facility] 18-64 YRS Branch Influenza Virus 2017-05-08 Completed [facility] ID 00:00:00 [place] [facility] 18-64 YRS Branch Influenza Virus 2017-05-08 Completed [facility] ID 00:00:00 [place] [facility] 18-64 YRS Branch Influenza Virus 2017-05-08 Completed [facility] ID 00:00:00 [place] [facility] 18-64 YRS Branch Influenza Virus 2017-05-08 Completed [facility] ID 00:00:00 [place] [facility] ical 18-64 YRS Branch Influenza Virus 2017-05-08 Completed [facility] Vaccine Quad ID 00:00:00 [place] [facility] 18-64 YRS Branch Influenza Virus 2017-05-08 Completed [facility]ine [facility] ID 00:00:00 [place] [facility] 18-64 YRS Branch Influenza Virus 2017-05-08 Completed [facility]ine [facility] ID 00:00:00 [facility] ical 18-64 YRS Branch Influenza Virus 2017-05-08 Completed [facility] Vaccine [facility] ID 00:00:00 [facility] ical 18-64 YRS Branch Influenza Virus 2017-05-08 Completed [facility]ine [facility] ID 00:00:00 [facility] ical 18-64 YRS Branch Influenza Virus 2017-05-08 Completed [facility]ine [facility] ID 00:00:00 [facility] ical 18-64 YRS Branch Influenza Virus 2017-05-08 Completed [facility]ine [facility] ID 00:00:00 [facility] ical 18-64 YRS Branch Influenza Virus 2017-05-08 Completed [facility] Vaccine Quad ID 00:00:00 [facility] ical 18-64 YRS Branch Influenza Virus 2017-05-08 Completed [facility] Vaccine Quad ID 00:00:00 [facility] ical 18-64 YRS Branch Influenza Virus 2017-05-08 Completed [facility] Vaccine Quad ID 00:00:00 [place] [facility] 18-64 YRS Branch Influenza Virus 2017-05-08 Completed [facility]ine [facility] ID 00:00:00 [place] [facility] 18-64 YRS Branch Influenza Virus 2017-05-08 Completed [facility]ine [facility] ID 00:00:00 [facility] ical 18-64 YRS Branch Influenza Virus 2017-05-08 Completed [facility] Vaccine Quad ID 00:00:00 [facility] ical 18-64 YRS Branch Influenza Virus 2017-05-08 Completed [facility] Vaccine Quad ID 00:00:00 [facility] ical 18-64 YRS Branch Influenza Virus 2017-05-08 Completed [facility]ine [facility] ID 00:00:00 [place] [facility] 18-64 YRS Branch Influenza Virus 2017-05-08 Completed [facility] Vaccine Quad ID 00:00:00 [facility] ical 18-64 YRS Branch Influenza Virus 2017-05-08 Completed [facility] Vaccine [facility] ID 00:00:00 [facility] ical 18-64 YRS Branch Influenza Virus 2017-05-08 Completed [facility] Vaccine Quad ID 00:00:00 [facility] ical 18-64 YRS Branch Influenza Virus 2017-05-08 Completed [facility]ine [facility] ID 00:00:00 [facility] ical 18-64 YRS Branch Influenza Virus 2017-05-08 Completed [facility] ID 00:00:00 [facility] ical 18-64 YRS Branch Influenza Virus 2017-05-08 Completed [facility] ID 00:00:00 [facility] ical 18-64 YRS Branch Influenza Virus 2017-05-08 Completed [facility] ID 00:00:00 [facility] ical 18-64 YRS Branch Influenza Virus 2017-05-08 Completed [facility]ine [facility] ID 00:00:00 [facility] ical 18-64 YRS Branch Influenza Virus 2017-05-08 Completed [facility]ine [facility] ID 00:00:00 [facility] ical 18-64 YRS Branch Influenza Virus 2017-05-08 Completed [facility] ID 00:00:00 [facility] ical 18-64 YRS Branch Influenza Virus 2017-05-08 Completed [facility] ID 00:00:00 [facility] ical 18-64 YRS Branch Influenza Virus 2017-05-08 Completed Universit y of Vaccine Quad ID 00:00:00 [facility] ical 18-64 YRS Branch Influenza Virus 2017-05-08 Completed [facility] Vaccine Quad ID 00:00:00 [place] [facility] 18-64 YRS Branch Influenza Virus 2017-05-08 Completed [facility] y of Vaccine Quad ID 00:00:00 [facility] ical 18-64 YRS Branch Influenza Virus 2017-05-08 Completed [facility] y of Vaccine Quad ID 00:00:00 [facility] ical 18-64 YRS Branch Influenza Virus 2017-05-08 Completed [facility] y of Vaccine Quad ID 00:00:00 [facility] ical 18-64 YRS Branch Influenza Virus 2017-05-08 Completed [facility] y of Vaccine Quad ID 00:00:00 [place] [facility] 18-64 YRS Branch Influenza Virus 2017-05-08 Completed [facility] y of Vaccine Quad ID 00:00:00 [facility] ical 18-64 YRS Branch Influenza Virus 2017-05-08 Completed [facility] y of Vaccine Quad ID 00:00:00 [facility] ical 18-64 YRS Branch Influenza Virus 2017-05-08 Completed [facility] y of Vaccine Quad ID 00:00:00 [facility] ical 18-64 YRS Branch Influenza Virus 2017-05-08 Completed [facility] y of Vaccine Quad ID 00:00:00 [facility] ical 18-64 YRS Branch Influenza Virus 2017-05-08 Completed [facility] y of Vaccine Quad ID 00:00:00 [facility] ical 18-64 YRS Branch Influenza Virus 2017-05-08 Completed [facility] y of Vaccine Quad ID 00:00:00 [facility] ical 18-64 YRS Branch Influenza Virus 2017-05-08 Completed [facility] y of Vaccine Quad ID 00:00:00 [facility] ical 18-64 YRS Branch Influenza Virus 2017-05-08 Completed [facility] y of Vaccine Quad ID 00:00:00 [facility] ical 18-64 YRS Branch Influenza Virus 2017-05-08 Completed [facility] y of Vaccine Quad ID 00:00:00 [facility] ical 18-64 YRS Branch Influenza Virus 2017-05-08 Completed [facility] y of Vaccine Quad ID 00:00:00 [facility] ical 18-64 YRS Branch Influenza Virus 2017-05-08 Completed [facility] y of Vaccine Quad ID 00:00:00 [facility] ical 18-64 YRS Branch Influenza Virus 2017-05-08 Completed [facility] y of Vaccine Quad ID 00:00:00 [facility] ical 18-64 YRS Branch Influenza Virus 2017-05-08 Completed [facility] y of Vaccine Quad ID 00:00:00 [place] [facility] 18-64 YRS Branch Influenza Virus 2017-05-08 Completed [facility] y of Vaccine Quad ID 00:00:00 [facility] ical 18-64 YRS Branch Influenza Virus 2017-05-08 Completed [facility] y of Vaccine Quad ID 00:00:00 [facility] ical 18-64 YRS Branch Influenza Virus 2017-05-08 Completed [facility] y of Vaccine Quad ID 00:00:00 [facility] ical 18-64 YRS Branch Influenza Virus 2017-05-08 Completed [facility] y of Vaccine Quad ID 00:00:00 [facility] ical 18-64 YRS Branch Influenza Virus 2017-05-08 Completed [facility] y of Vaccine Quad ID 00:00:00 [facility] ical 18-64 YRS Branch Influenza Virus 2017-05-08 Completed [facility] y of Vaccine Quad ID 00:00:00 [facility] ical 18-64 YRS Branch Influenza Virus 2017-05-08 Completed [facility] y of Vaccine Quad ID 00:00:00 [facility] ical 18-64 YRS Branch Influenza Virus 2017-05-08 Completed [facility] y of Vaccine Quad ID 00:00:00 [facility] ical 18-64 YRS Branch Influenza Virus 2017-05-08 Completed [facility] y of Vaccine Quad ID 00:00:00 [facility] ical 18-64 YRS Branch Influenza Virus 2017-05-08 Completed [facility] y of Vaccine Quad ID 00:00:00 [facility] ica 18-64 YRS [place] Influenza Virus 2017-05-08 Completed [facility] y of Vaccine Quad ID 00:00:00 [facility] 18-64 YRS Branch TDAP 2017-02-21 Completed [facility] of 00:00:00 [facility] TDAP 2017-02-21 Completed [facility] of 00:00:00 [facility] TDAP 2017-02-21 Completed [facility] of 00:00:00 [facility] TDAP 2017-02-21 Completed [facility] of 00:00:00 [facility] TDAP 2017-02-21 Completed [facility] of 00:00:00 [facility] TDAP 2017-02-21 Completed [facility] of 00:00:00 [facility] TDAP 2017-02-21 Completed [facility] of 00:00:00 [facility] Branch TDAP 2017-02-21 Completed [facility] of 00:00:00 [facility] Branch TDAP 2017-02-21 Completed [facility] of 00:00:00 [facility] TDAP 2017-02-21 Completed [facility] of 00:00:00 [facility] Branch TDAP 2017-02-21 Completed [facility] of 00:00:00 [facility] Branch TDAP 2017-02-21 Completed [facility] of 00:00:00 [facility] TDAP 2017-02-21 Completed [facility] of 00:00:00 [facility] TDAP 2017-02-21 Completed [facility] of 00:00:00 [facility] TDAP 2017-02-21 Completed [facility] of 00:00:00 [facility] TDAP 2017-02-21 Completed [facility] of 00:00:00 [facility] TDAP 2017-02-21 Completed [facility] of 00:00:00 [facility] TDAP 2017-02-21 Completed [facility] of 00:00:00 [facility] TDAP 2017-02-21 Completed [facility] of 00:00:00 [facility] TDAP 2017-02-21 Completed [facility] of 00:00:00 [facility] Branch TDAP 2017-02-21 Completed [facility] of 00:00:00 [facility] TDAP 2017-02-21 Completed [facility] of 00:00:00 [facility] TDAP 2017-02-21 Completed [facility] of 00:00:00 [facility] TDAP 2017-02-21 Completed [facility] of 00:00:00 [facility] Branch TDAP 2017-02-21 Completed [facility] of 00:00:00 [facility] Branch TDAP 2017-02-21 Completed [facility] of 00:00:00 [facility] Branch TDAP 2017-02-21 Completed [facility] of 00:00:00 [facility] Branch TDAP 2017-02-21 Completed [facility] of 00:00:00 [facility] Branch TDAP 2017-02-21 Completed [facility] of 00:00:00 [facility] Branch TDAP 2017-02-21 Completed [facility] of 00:00:00 [facility] Branch TDAP 2017-02-21 Completed [facility] of 00:00:00 [facility] Branch TDAP 2017-02-21 Completed [facility] of 00:00:00 [facility] Branch TDAP 2017-02-21 Completed [facility] of 00:00:00 [facility] Branch TDAP 2017-02-21 Completed [facility] of 00:00:00 [facility] Branch TDAP 2017-02-21 Completed [facility] of 00:00:00 [facility] TDAP 2017-02-21 Completed [facility] of 00:00:00 [facility] TDAP 2017-02-21 Completed [facility] of 00:00:00 [facility] Branch TDAP 2017-02-21 Completed [facility] of 00:00:00 [facility] Branch TDAP 2017-02-21 Completed [facility] of 00:00:00 [facility] TDAP 2017-02-21 Completed [facility] of 00:00:00 [facility] TDAP 2017-02-21 Completed [facility] of 00:00:00 [facility] Branch TDAP 2017-02-21 Completed [facility] of 00:00:00 [facility] Branch TDAP 2017-02-21 Completed [facility] of 00:00:00 [facility] TDAP 2017-02-21 Completed [facility] of 00:00:00 [facility] TDAP 2017-02-21 Completed [facility] of 00:00:00 [facility] TDAP 2017-02-21 Completed [facility] of 00:00:00 [facility] TDAP 2017-02-21 Completed [facility] of 00:00:00 [facility] TDAP 2017-02-21 Completed [facility] of 00:00:00 [facility] TDAP 2017-02-21 Completed [facility] of 00:00:00 [facility] TDAP 2017-02-21 Completed [facility] of 00:00:00 [facility] TDAP 2017-02-21 Completed [facility] of 00:00:00 [facility] TDAP 2017-02-21 Completed [facility] of 00:00:00 [facility] TDAP 2017-02-21 Completed [facility] of 00:00:00 [facility] TDAP 2017-02-21 Completed [facility] of 00:00:00 [facility] TDAP 2017-02-21 Completed [facility] of 00:00:00 [facility] TDAP 2017-02-21 Completed [facility] of 00:00:00 [facility] TDAP 2017-02-21 Completed [facility] of 00:00:00 [facility] TDAP 2017-02-21 Completed [facility] of 00:00:00 [facility] TDAP 2017-02-21 Completed [facility] of 00:00:00 [facility] TDAP 2017-02-21 Completed [facility] of 00:00:00 [facility] TDAP 2017-02-21 Completed [facility] of 00:00:00 [facility] TDAP 2017-02-21 Completed [facility] of 00:00:00 [facility] TDAP 2017-02-21 Completed [facility] of 00:00:00 [facility] Influenza Virus 2016-06-06 Completed [facility]it y of Vaccine Quad IM 3+ 00:00:00 [facility] Influenza Virus 2016-06-06 Completed [facility]it y of Vaccine Quad IM 3+ 00:00:00 [facility] Influenza Virus 2016-06-06 Completed [facility] y of Vaccine Quad IM 3+ 00:00:00 [facility] Influenza Virus 2016-06-06 Completed [facility] y of Vaccine Quad IM 3+ 00:00:00 [facility] Influenza Virus 2016-06-06 Completed [facility] y of Vaccine Quad IM 3+ 00:00:00 [facility] Influenza Virus 2016-06-06 Completed [facility] y of Vaccine Quad IM 3+ 00:00:00 [facility] Influenza Virus 2016-06-06 Completed [facility] y of Vaccine Quad IM 3+ 00:00:00 [facility] Influenza Virus 2016-06-06 Completed [facility] y of Vaccine Quad IM 3+ 00:00:00 [facility] Influenza Virus 2016-06-06 Completed [facility] y of Vaccine Quad IM 3+ 00:00:00 [facility] Influenza Virus 2016-06-06 Completed [facility] y of Vaccine Quad IM 3+ 00:00:00 [facility] Influenza Virus 2016-06-06 Completed [facility] y of Vaccine Quad IM 3+ 00:00:00 [facility] Influenza Virus 2016-06-06 Completed [facility] y of Vaccine Quad IM 3+ 00:00:00 [facility] Influenza Virus 2016-06-06 Completed [facility] y of Vaccine Quad IM 3+ 00:00:00 [facility] Influenza Virus 2016-06-06 Completed [facility] y of Vaccine Quad IM 3+ 00:00:00 [facility] Influenza Virus 2016-06-06 Completed [facility] y of Vaccine Quad IM 3+ 00:00:00 [facility] Influenza Virus 2016-06-06 Completed [facility] y of Vaccine Quad IM 3+ 00:00:00 [facility] Influenza Virus 2016-06-06 Completed [facility] y of Vaccine Quad IM 3+ 00:00:00 [facility] Influenza Virus 2016-06-06 Completed [facility] y of Vaccine Quad IM 3+ 00:00:00 [facility] Influenza Virus 2016-06-06 Completed [facility] y of Vaccine Quad IM 3+ 00:00:00 [facility] Influenza Virus 2016-06-06 Completed [facility] y of Vaccine Quad IM 3+ 00:00:00 [facility] Influenza Virus 2016-06-06 Completed [facility] y of Vaccine Quad IM 3+ 00:00:00 [facility] Influenza Virus 2016-06-06 Completed [facility] y of Vaccine Quad IM 3+ 00:00:00 [facility] Influenza Virus 2016-06-06 Completed [facility] y of Vaccine Quad IM 3+ 00:00:00 [facility] Influenza Virus 2016-06-06 Completed [facility] y of Vaccine Quad IM 3+ 00:00:00 [facility] Influenza Virus 2016-06-06 Completed [facility] y of Vaccine Quad IM 3+ 00:00:00 [facility] Influenza Virus 2016-06-06 Completed [facility] y of Vaccine Quad IM 3+ 00:00:00 [facility] Influenza Virus 2016-06-06 Completed [facility] y of Vaccine Quad IM 3+ 00:00:00 [facility] Influenza Virus 2016-06-06 Completed [facility] y of Vaccine Quad IM 3+ 00:00:00 [facility] Influenza Virus 2016-06-06 Completed [facility] y of Vaccine Quad IM 3+ 00:00:00 [facility] Influenza Virus 2016-06-06 Completed [facility] y of Vaccine Quad IM 3+ 00:00:00 [facility] Influenza Virus 2016-06-06 Completed [facility] y of Vaccine Quad IM 3+ 00:00:00 [facility] Influenza Virus 2016-06-06 Completed [facility] y of Vaccine Quad IM 3+ 00:00:00 [facility] Influenza Virus 2016-06-06 Completed [facility] y of Vaccine Quad IM 3+ 00:00:00 [facility] Influenza Virus 2016-06-06 Completed [facility] y of Vaccine Quad IM 3+ 00:00:00 [facility] Influenza Virus 2016-06-06 Completed [facility] y of Vaccine Quad IM 3+ 00:00:00 [facility] Influenza Virus 2016-06-06 Completed [facility] y of Vaccine Quad IM 3+ 00:00:00 [facility] Influenza Virus 2016-06-06 Completed [facility] y of Vaccine Quad IM 3+ 00:00:00 [facility] Influenza Virus 2016-06-06 Completed [facility] y of Vaccine Quad IM 3+ 00:00:00 [facility] Influenza Virus 2016-06-06 Completed [facility] y of Vaccine Quad IM 3+ 00:00:00 [facility] Influenza Virus 2016-06-06 Completed [facility] y of Vaccine Quad IM 3+ 00:00:00 [facility] Influenza Virus 2016-06-06 Completed [facility] y of Vaccine Quad IM 3+ 00:00:00 [facility] Influenza Virus 2016-06-06 Completed [facility] y of Vaccine Quad IM 3+ 00:00:00 [facility] Influenza Virus 2016-06-06 Completed [facility] y of Vaccine Quad IM 3+ 00:00:00 [facility] Influenza Virus 2016-06-06 Completed [facility] y of Vaccine Quad IM 3+ 00:00:00 [facility] Influenza Virus 2016-06-06 Completed [facility] y of Vaccine Quad IM 3+ 00:00:00 [facility] Influenza Virus 2016-06-06 Completed [facility] y of Vaccine Quad IM 3+ 00:00:00 [facility] Influenza Virus 2016-06-06 Completed [facility] y of Vaccine Quad IM 3+ 00:00:00 [facility] Influenza Virus 2016-06-06 Completed [facility] y of Vaccine Quad IM 3+ 00:00:00 [facility] Influenza Virus 2016-06-06 Completed [facility] y of Vaccine Quad IM 3+ 00:00:00 [facility] Influenza Virus 2016-06-06 Completed [facility] y of Vaccine Quad IM 3+ 00:00:00 [facility] Influenza Virus 2016-06-06 Completed [facility] y of Vaccine Quad IM 3+ 00:00:00 [facility] Influenza Virus 2016-06-06 Completed [facility] y of Vaccine Quad IM 3+ 00:00:00 [facility] Influenza Virus 2016-06-06 Completed [facility] y of Vaccine Quad IM 3+ 00:00:00 [facility] Influenza Virus 2016-06-06 Completed [facility] y of Vaccine Quad IM 3+ 00:00:00 [facility] Influenza Virus 2016-06-06 Completed [facility] y of Vaccine Quad IM 3+ 00:00:00 [facility] Influenza Virus 2016-06-06 Completed [facility] y of Vaccine Quad IM 3+ 00:00:00 [facility] Influenza Virus 2016-06-06 Completed [facility] y of Vaccine Quad IM 3+ 00:00:00 [facility] Influenza Virus 2016-06-06 Completed [facility] y of Vaccine Quad IM 3+ 00:00:00 [facility] Influenza Virus 2016-06-06 Completed [facility] y of Vaccine Quad IM 3+ 00:00:00 [facility] Influenza Virus 2016-06-06 Completed [facility] y of Vaccine Quad IM 3+ 00:00:00 [facility] Influenza Virus 2016-06-06 Completed [facility] y of Vaccine Quad IM 3+ 00:00:00 [facility] Influenza Virus 2016-06-06 Completed [facility] y of Vaccine Quad IM 3+ 00:00:00 [facility] Influenza Virus 2016-06-06 Completed [facility] y of Vaccine Quad IM 3+ 00:00:00 [facility] influenza virus 2015-06-20 Completed [facility] vaccine, 15:04:00 inactivated influenza virus 2015-06-20 Completed [facility] vaccine, 15:04:00 inactivated influenza virus 2015-06-20 Completed [facility], 15:04:00 inactivated influenza virus 2015-06-20 Completed [facility], 15:04:00 inactivated influenza virus 2015-06-20 Completed [facility] vaccine, 15:04:00 inactivated influenza virus 2015-06-20 Completed [facility] vaccine, 15:04:00 inactivated influenza virus 2015-06-20 Completed [facility] vaccine, 15:04:00 inactivated influenza virus 2015-06-20 Completed [facility], 15:04:00 inactivated pneumococcal 2009-10-17 Completed [facility] 23-valent vaccine 19:00:00 pneumococcal 2009-10-17 Completed [facility] 23-valent vaccine 19:00:00 pneumococcal 2009-10-17 Completed [facility] 23-valent vaccine 19:00:00 pneumococcal 2009-10-17 Completed [facility] 23-valent vaccine 19:00:00 pneumococcal 2009-10-17 Completed [facility] 23-valent vaccine 19:00:00 pneumococcal 2009-10-17 Completed [facility] 23-valent vaccine 19:00:00 pneumococcal 2009-10-17 Completed [facility] 23-valent vaccine 19:00:00 pneumococcal 2009-10-17 Completed [facility] 23-valent vaccine 19:00:00 pneumococcal 2009-10-17 Completed [facility] 23-valent vaccine 19:00:00 pneumococcal 2009-10-17 Completed [facility] 23-valent vaccine 19:00:00 pneumococcal 2009-10-17 Completed [facility] 23-valent vaccine 19:00:00 pneumococcal 2009-10-17 Completed [facility] 23-valent vaccine 19:00:00 pneumococcal 2009-10-17 Completed [facility] 23-valent vaccine 19:00:00 pneumococcal 2009-10-17 Completed [facility] 23-valent vaccine 19:00:00 pneumococcal 2009-10-17 Completed [facility] 23-valent vaccine 19:00:00 pneumococcal 2009-10-17 Completed [facility] 23-valent vaccine 19:00:00 Pneumococcal 2009-10-17 Completed [facility] o f Polysaccharide, 00:00:00 [facility] PPSV23 (PNEUMOVAX) Branch Pneumococcal 2009-10-17 Completed [facility] o f Polysaccharide, 00:00:00 [place] [facility] PPSV23 (PNEUMOVAX) Branch Pneumococcal 2009-10-17 Completed [facility] o f Polysaccharide, 00:00:00 [place] [facility] PPSV23 (PNEUMOVAX) Branch Pneumococcal 2009-10-17 Completed [facility] o f Polysaccharide, 00:00:00 [place] [facility] PPSV23 (PNEUMOVAX) Branch Pneumococcal 2009-10-17 Completed [facility] o f Polysaccharide, 00:00:00 [place] [facility] PPSV23 (PNEUMOVAX) Branch Pneumococcal 2009-10-17 Completed [facility] o f Polysaccharide, 00:00:00 [place] [facility] PPSV23 (PNEUMOVAX) Branch Pneumococcal 2009-10-17 Completed [facility] o f Polysaccharide, 00:00:00 [place] [facility] PPSV23 (PNEUMOVAX) Branch Pneumococcal 2009-10-17 Completed [facility] o f Polysaccharide, 00:00:00 [place] [facility] PPSV23 (PNEUMOVAX) Branch Pneumococcal 2009-10-17 Completed [facility] o f Polysaccharide, 00:00:00 [place] [facility] PPSV23 (PNEUMOVAX) Branch Pneumococcal 2009-10-17 Completed [facility] o f Polysaccharide, 00:00:00 [place] [facility] PPSV23 (PNEUMOVAX) Branch Pneumococcal 2009-10-17 Completed [facility] o f Polysaccharide, 00:00:00 [place] [facility] PPSV23 (PNEUMOVAX) Branch Pneumococcal 2009-10-17 Completed [facility] o f Polysaccharide, 00:00:00 [place] [facility] PPSV23 (PNEUMOVAX) Branch Pneumococcal 2009-10-17 Completed [facility] o f Polysaccharide, 00:00:00 [place] [facility] PPSV23 (PNEUMOVAX) Branch Pneumococcal 2009-10-17 Completed [facility] o f Polysaccharide, 00:00:00 [place] [facility] PPSV23 (PNEUMOVAX) Branch Pneumococcal 2009-10-17 Completed [facility] o f Polysaccharide, 00:00:00 [place] [facility] PPSV23 (PNEUMOVAX) Branch Pneumococcal 2009-10-17 Completed [facility] o f Polysaccharide, 00:00:00 [place] [facility] PPSV23 (PNEUMOVAX) Branch Pneumococcal 2009-10-17 Completed [facility] o f Polysaccharide, 00:00:00 [place] [facility] PPSV23 (PNEUMOVAX) Branch Pneumococcal 2009-10-17 Completed [facility] o f Polysaccharide, 00:00:00 [place] [facility] PPSV23 (PNEUMOVAX) Branch Pneumococcal 2009-10-17 Completed [facility] o f Polysaccharide, 00:00:00 [place] [facility] PPSV23 (PNEUMOVAX) Branch Pneumococcal 2009-10-17 Completed [facility] o f Polysaccharide, 00:00:00 [place] [facility] PPSV23 (PNEUMOVAX) Branch Pneumococcal 2009-10-17 Completed [facility] o f Polysaccharide, 00:00:00 [place] [facility] PPSV23 (PNEUMOVAX) Branch Pneumococcal 2009-10-17 Completed [facility] o f Polysaccharide, 00:00:00 [place] [facility] PPSV23 (PNEUMOVAX) Branch Pneumococcal 2009-10-17 Completed [facility] o f Polysaccharide, 00:00:00 [place] [facility] PPSV23 (PNEUMOVAX) Branch Pneumococcal 2009-10-17 Completed [facility] o f Polysaccharide, 00:00:00 [place] [facility] PPSV23 (PNEUMOVAX) Branch Pneumococcal 2009-10-17 Completed [facility] o f Polysaccharide, 00:00:00 [place] [facility] PPSV23 (PNEUMOVAX) Branch Pneumococcal 2009-10-17 Completed [facility] o f Polysaccharide, 00:00:00 [place] [facility] PPSV23 (PNEUMOVAX) Branch Pneumococcal 2009-10-17 Completed [facility] o f Polysaccharide, 00:00:00 [place] [facility] PPSV23 (PNEUMOVAX) Branch Pneumococcal 2009-10-17 Completed [facility] o f Polysaccharide, 00:00:00 [place] [facility] PPSV23 (PNEUMOVAX) Branch Pneumococcal 2009-10-17 Completed [facility] o f Polysaccharide, 00:00:00 [place] [facility] PPSV23 (PNEUMOVAX) Branch Pneumococcal 2009-10-17 Completed [facility] o f Polysaccharide, 00:00:00 [place] [facility] PPSV23 (PNEUMOVAX) Branch Pneumococcal 2009-10-17 Completed [facility] o f Polysaccharide, 00:00:00 [place] [facility] PPSV23 (PNEUMOVAX) Branch Pneumococcal 2009-10-17 Completed [facility] o f Polysaccharide, 00:00:00 [place] [facility] PPSV23 (PNEUMOVAX) Branch Pneumococcal 2009-10-17 Completed [facility] o f Polysaccharide, 00:00:00 [place] [facility] PPSV23 (PNEUMOVAX) Branch Pneumococcal 2009-10-17 Completed [facility] o f Polysaccharide, 00:00:00 [place] [facility] PPSV23 (PNEUMOVAX) Branch Pneumococcal 2009-10-17 Completed [facility] o f Polysaccharide, 00:00:00 [place] [facility] PPSV23 (PNEUMOVAX) Branch Pneumococcal 2009-10-17 Completed [facility] o f Polysaccharide, 00:00:00 [place] [facility] PPSV23 (PNEUMOVAX) Branch Pneumococcal 2009-10-17 Completed [facility] o f Polysaccharide, 00:00:00 [place] [facility] PPSV23 (PNEUMOVAX) Branch Pneumococcal 2009-10-17 Completed [facility] o f Polysaccharide, 00:00:00 [place] [facility] PPSV23 (PNEUMOVAX) Branch Pneumococcal 2009-10-17 Completed [facility] o f Polysaccharide, 00:00:00 [place] [facility] PPSV23 (PNEUMOVAX) Branch Pneumococcal 2009-10-17 Completed [facility] o f Polysaccharide, 00:00:00 [place] [facility] PPSV23 (PNEUMOVAX) Branch Pneumococcal 2009-10-17 Completed [facility] o f Polysaccharide, 00:00:00 [place] [facility] PPSV23 (PNEUMOVAX) Branch Pneumococcal 2009-10-17 Completed [facility] o f Polysaccharide, 00:00:00 [place] [facility] PPSV23 (PNEUMOVAX) Branch Pneumococcal 2009-10-17 Completed [facility] o f Polysaccharide, 00:00:00 [place] [facility] PPSV23 (PNEUMOVAX) Branch Pneumococcal 2009-10-17 Completed [facility] o f Polysaccharide, 00:00:00 [place] [facility] PPSV23 (PNEUMOVAX) Branch Pneumococcal 2009-10-17 Completed [facility] o f Polysaccharide, 00:00:00 [place] [facility] PPSV23 (PNEUMOVAX) Branch Pneumococcal 2009-10-17 Completed [facility] o f Polysaccharide, 00:00:00 [place] [facility] PPSV23 (PNEUMOVAX) Branch Pneumococcal 2009-10-17 Completed [facility] o f Polysaccharide, 00:00:00 [place] [facility] PPSV23 (PNEUMOVAX) Branch Pneumococcal 2009-10-17 Completed [facility] o f Polysaccharide, 00:00:00 [place] [facility] PPSV23 (PNEUMOVAX) Branch Pneumococcal 2009-10-17 Completed [facility] o f Polysaccharide, 00:00:00 [place] [facility] PPSV23 (PNEUMOVAX) Branch Pneumococcal 2009-10-17 Completed [facility] o f Polysaccharide, 00:00:00 [place] [facility] PPSV23 (PNEUMOVAX) Branch Pneumococcal 2009-10-17 Completed [facility] o f Polysaccharide, 00:00:00 [place] [facility] PPSV23 (PNEUMOVAX) Branch Pneumococcal 2009-10-17 Completed [facility] Polysaccharide, 00:00:00 [place] [facility] ical PPSV23 (PNEUMOVAX) Branch Pneumococcal 2009-10-17 Completed [facility] Polys[facility], 00:00:00 [place] [facility] PPSV23 (PNEUMOVAX) Branch Pneumococcal 2009-10-17 Completed [facility] f Polysaccharide, 00:00:00 [place] [facility] PPSV23 (PNEUMOVAX) Branch Pneumococcal 2009-10-17 Completed [facility] f Polysaccharide, 00:00:00 [place] [facility] PPSV23 (PNEUMOVAX) Branch Pneumococcal 2009-10-17 Completed [facility] f Polysaccharide, 00:00:00 [place] [facility] PPSV23 (PNEUMOVAX) Branch Pneumococcal 2009-10-17 Completed [facility] o f Polysaccharide, 00:00:00 [place] [facility] PPSV23 (PNEUMOVAX) Branch Pneumococcal 2009-10-17 Completed [facility] o f Polysaccharide, 00:00:00 [place] [facility] PPSV23 (PNEUMOVAX) Branch Pneumococcal 2009-10-17 Completed [facility] o f Polysaccharide, 00:00:00 [place] [facility] PPSV23 (PNEUMOVAX) Branch Pneumococcal 2009-10-17 Completed [facility] o f Polysaccharide, 00:00:00 [place] [facility] PPSV23 (PNEUMOVAX) Branch Pneumococcal 2009-10-17 Completed [facility] o f Polysaccharide, 00:00:00 [place] [facility] PPSV23 (PNEUMOVAX) Branch Pneumococcal 2009-10-17 Completed [facility] o f Polysaccharide, 00:00:00 [place] [facility] PPSV23 (PNEUMOVAX) Branch Pneumococcal 2009-10-17 Completed [facility] o f Polysaccharide, 00:00:00 [place] [facility] PPSV23 (PNEUMOVAX) Branch Vital Signs Vital Name Observation Time Observation Value Comments Source Systolic blood 2023-01-14 15:38:00 106 mm[Hg[facility] Diastolic blood 2023-01-14 15:38:00 70 mm[Hg] [facility] Heart rate 2023-01-14 15:38:00 83 /min [facility] Body temperature 2023-01-14 15:38:00 36.22 Linda [facility] Respiratory rate 2023-01-14 15:38:00 18 /min [facility] Body height 2023-01-14 15:38:00 152.4 cm [facility] Body weight 2023-01-14 15:38:00 77.928 kg [facility] BMI 2023-01-14 15:38:00 33.55 kg/m2 [facility] Oxygen saturation in 2023-01-14 15:38:00 99 /min [facility] of Arterial blood by [facility] maddy Pulse oximetry Branch Systolic blood 2022-12-16 14:41:00 108 mm[Hg] Univer sity of pressure [facility] Diastolic blood 2022-12-16 14:41:00 68 mm[Hg] Unive rsity of pressure [facility] Heart rate 2022-12-16 14:41:00 77 /min [facility] Respiratory rate 2022-12-16 14:41:00 16 /min [facility] Body height 2022-12-16 14:41:00 152.4 cm [facility] Body weight 2022-12-16 14:41:00 78.654 kg [facility] BMI 2022-12-16 14:41:00 33.86 kg/m2 [facility] Oxygen saturation in 2022-12-16 14:41:00 97 /min [facility] Arterial blood by [facility] maddy Pulse oximetry Branch Systolic blood 2022-11-10 03:07:23 109 mm[Hg] Univer sity of pressure [facility] Diastolic blood 2022-11-10 03:07:23 87 mm[Hg] Unive rsity of pressure [facility] Heart rate 2022-11-10 03:07:23 80 /min [facility] Respiratory rate 2022-11-10 03:07:23 18 /min [facility] Oxygen saturation in 2022-11-10 03:07:23 96 /min [facility] by [place] [facility]xim[facility] Body temperature 2022-11-10 01:21:00 37.28 Linda [facility] Body height 2022-11-10 01:21:00 152.4 cm [facility] Body weight 2022-11-10 01:21:00 72.576 kg [facility] BMI 2022-11-10 01:21:00 31.25 kg/m2 [facility] Systolic blood 2022-11-06 22:00:00 115 mm[Hg] [facility] pressure [facility] Diastolic blood 2022-11-06 22:00:00 68 mm[Hg] Unive rsity of pressure [facility] Heart rate 2022-11-06 22:00:00 73 /min [facility] Respiratory rate 2022-11-06 22:00:00 16 /min [facility] Oxygen saturation in 2022-11-06 22:00:00 99 /min [facility]ial blood by [place] [employer] maddy Pulse oximetry Branch Body temperature 2022-11-06 19:46:00 36.5 Linda [facility] Body height 2022-11-06 19:46:00 152.4 cm [facility] Body weight 2022-11-06 19:46:00 74.844 kg [facility] BMI 2022-11-06 19:46:00 32.22 kg/m2 [facility] Systolic blood 2022-08-29 19:33:00 124 mm[Hg] [facility]ity [facility] pressure [facility] Diastolic blood 2022-08-29 19:33:00 80 mm[Hg] Unive rsity of pressure [facility] Heart rate 2022-08-29 19:33:00 87 /min [facility] Body temperature 2022-08-29 19:33:00 36.78 Linda [facility] Respiratory rate 2022-08-29 19:33:00 16 /min [facility] Body height 2022-08-29 19:33:00 152.4 cm [facility] Body weight 2022-08-29 19:33:00 75.779 kg [facility] BMI 2022-08-29 19:33:00 32.63 kg/m2 [facility] Oxygen saturation in 2022-08-29 19:33:00 98 /min [facility] Arterial blood by [place] [employer] maddy Pulse oximetry Branch Systolic blood 2022-07-15 20:32:00 98 mm[Hg] Univer sity of pressure [facility] Diastolic blood 2022-07-15 20:32:00 63 mm[Hg] Unive rsity of pressure [facility] Heart rate 2022-07-15 20:32:00 81 /min [facility] Body temperature 2022-07-15 20:28:00 36.67 Linda [facility] Respiratory rate 2022-07-15 20:28:00 14 /min [facility] Body height 2022-07-15 20:28:00 152.4 cm [facility] [place] [facility] Body weight 2022-07-15 20:28:00 76.431 kg [facility] BMI 2022-07-15 20:28:00 32.91 kg/m2 [facility] Oxygen saturation in 2022-07-15 20:28:00 98 /min [facility] Arterial blood by [employer] Pulse oximetry Branch Systolic blood 2022-06-18 21:56:00 111 mm[Hg] Univer [facility]ity of pressure [facility] Diastolic blood 2022-06-18 21:56:00 74 mm[Hg] Unive rsity of pressure [facility] Heart rate 2022-06-18 21:56:00 86 /min [facility] Body temperature 2022-06-18 21:56:00 36.56 Linda [facility] Respiratory rate 2022-06-18 21:56:00 18 /min [facility] Body height 2022-06-18 21:56:00 152.4 cm [facility] Body weight 2022-06-18 21:56:00 77.928 kg [facility] BMI 2022-06-18 21:56:00 33.55 kg/m2 [facility] Oxygen saturation in 2022-06-18 21:56:00 100 /min [facility] Arterial blood by [employer] Pulse oximetry Branch Heart rate 2022-05-16 16:55:00 97 /min [facility] Respiratory rate 2022-05-16 16:55:00 20 /min [facility] Oxygen saturation in 2022-05-16 16:55:00 95 /min [facility] Arterial blood by [facility] Pulse oximetry Branch Systolic blood 2022-05-16 13:32:00 138 mm[Hg] Univer sity of pressure [facility] Diastolic blood 2022-05-16 13:32:00 83 mm[Hg] Unive rsity of pressure [facility] Body temperature 2022-05-16 13:32:00 35.83 Linda [facility] Body weight 2022-05-16 08:10:00 81.466 kg [facility] BMI 2022-05-16 08:10:00 35.08 kg/m2 [facility] Body height 2022-05-15 00:51:00 152.4 cm [facility] Systolic blood 2022-05-14 18:22:00 102 mm[Hg] Univer sity of pressure [facility] Diastolic blood 2022-05-14 18:22:00 66 mm[Hg] Unive rsity of pressure [facility] Heart rate 2022-05-14 18:22:00 92 /min [facility] Body temperature 2022-05-14 18:22:00 36.83 Linda [facility] Respiratory rate 2022-05-14 18:22:00 17 /min [facility] Body weight 2022-05-14 18:22:00 81.647 kg [facility] BMI 2022-05-14 18:22:00 35.15 kg/m2 [facility] Oxygen saturation in 2022-05-14 18:22:00 96 /min [facility] Arterial blood by [facility] Pulse oximetry Branch Systolic blood 2022-02-22 18:45:00 112 mm[Hg] Univer sity of pressure [facility] Diastolic blood 2022-02-22 18:45:00 73 mm[Hg] Unive rsity of pressure [facility] Heart rate 2022-02-22 18:45:00 87 /min [facility] Body height 2022-02-22 18:45:00 152.4 cm [facility] Body weight 2022-02-22 18:45:00 79.833 kg [facility] [place] [facility] BMI 2022-02-22 18:45:00 34.37 kg/m2 [facility] Oxygen saturation in 2022-02-22 18:45:00 95 /min University Arterial blood by [facility] Pulse oximetry Branch Respitory Rate 2018-09-20 14:06:00 [facility] Systolic (mm Hg) 2018-09-20 14:06:00 [place] [facility] [place] Diastolic (mm Hg) 2018-09-20 14:06:00 [facility] [place] Temperature Oral (F) 2018-09-20 14:06:00 98.1 F [facility] [place] Respitory Rate 2018-09-20 13:00:00 [facility] [place] Systolic (mm Hg) 2018-09-20 13:00:00 [facility] [place] Diastolic (mm Hg) 2018-09-20 13:00:00 [facility] [place] Systolic (mm Hg) 2018-09-20 11:08:00 [facility] Diastolic (mm Hg) 2018-09-20 11:08:00 [facility] Heart Rate 2018-09-20 11:08:00 [facility] Respitory Rate 2018-09-20 11:08:00 [facility] Weight 2018-09-20 09:49:00 [facility] Temperature Oral (F) 2018-09-20 09:49:00 98.3 F [facility] [place] Heart Rate 2018-09-20 09:49:00 [facility] [place] Systolic (mm Hg) 2017-10-31 14:30:00 [place] [place] Diastolic (mm Hg) 2017-10-31 14:30:00 [facility] Respitory Rate 2017-10-31 14:30:00 [facility] Systolic (mm Hg) 2017-10-31 14:15:00 [place] [place] Diastolic (mm Hg) 2017-10-31 14:15:00 [facility] Respitory Rate 2017-10-31 14:15:00 [facility] Systolic (mm Hg) 2017-10-31 14:00:00 [place] [place] Diastolic (mm Hg) 2017-10-31 14:00:00 [facility] [place] Respitory Rate 2017-10-31 14:00:00 [facility] [place] Heart Rate 2017-10-31 12:06:00 [facility] Temperature Oral (F) 2017-10-29 13:32:00 97.6 F [facility] Heart Rate 2017-10-29 13:32:00 [facility] [place] BMI Calculated 2017-10-29 13:21:00 [facility] Weight 2017-10-29 13:21:00 [facility] [place] Height 2017-10-29 13:21:00 154.94 cm [facility] Respitory Rate 2017-10-05 08:37:00 [facility] [place] Heart Rate 2017-10-05 06:00:00 [facility] [place] Systolic (mm Hg) 2017-10-05 06:00:00 [place] [place] Diastolic (mm Hg) 2017-10-05 06:00:00 [facility] [place] Weight 2017-10-05 06:00:00 [facility] Respitory Rate 2017-10-05 06:00:00 [facility] [place] Temperature Oral (F) 2017-10-05 06:00:00 98.0 F [facility] [place] Respitory Rate 2017-06-13 21:54:00 [facility] Heart Rate 2017-06-13 21:54:00 [facility] Systolic (mm Hg) 2017-06-13 21:54:00 [facility] Diastolic (mm Hg) 2017-06-13 21:54:00 [facility] [place] Weight 2017-06-13 19:51:00 [facility] [place] Systolic (mm Hg) 2017-06-13 19:51:00 [facility] [place] Diastolic (mm Hg) 2017-06-13 19:51:00 [facility] [place] Respitory Rate 2017-06-13 19:51:00 [facility] Heart Rate 2017-06-13 19:51:00 [facility] Temperature Oral (F) 2017-06-13 19:51:00 98.3 F [facility] Respitory Rate 2016-11-15 08:36:00 [facility] Heart Rate 2016-11-15 08:36:00 [facility] Systolic (mm Hg) 2016-11-15 08:36:00 [facility] Diastolic (mm Hg) 2016-11-15 08:36:00 [facility] [place] Weight 2016-11-15 07:48:00 [facility] [place] Temperature Oral (F) 2016-11-15 07:48:00 97.5 F [facility] [place] Respitory Rate 2016-11-15 07:48:00 [facility] Heart Rate 2016-11-15 07:48:00 [facility] [place] Systolic (mm Hg) 2016-11-15 07:48:00 [facility] Diastolic (mm Hg) 2016-11-15 07:48:00 [facility] [place] Systolic (mm Hg) 2016-10-23 07:11:00 [facility] Diastolic (mm Hg) 2016-10-23 07:11:00 [facility] Temperature Oral (F) 2016-10-23 07:11:00 97.6 F [facility] [place] Heart Rate 2016-10-23 07:11:00 [facility] [place] Respitory Rate 2016-10-23 07:11:00 [facility] Weight 2016-10-23 05:14:00 [facility] Temperature Oral (F) 2016-10-23 05:14:00 97.6 F [facility] [place] Heart Rate 2016-10-23 05:14:00 [facility] Respitory Rate 2016-10-23 05:14:00 [facility] [place] Systolic (mm Hg) 2016-10-23 05:14:00 [facility] Diastolic (mm Hg) 2016-10-23 05:14:00 [facility] Systolic (mm Hg) 2016-10-15 08:34:00 [place] [place] Diastolic (mm Hg) 2016-10-15 08:34:00 [facility] Systolic (mm Hg) 2016-10-15 08:26:00 [facility] Diastolic (mm Hg) 2016-10-15 08:26:00 [facility] Respitory Rate 2016-10-15 07:23:00 [facility] Systolic (mm Hg) 2016-10-15 07:23:00 [place] [place] Diastolic (mm Hg) 2016-10-15 07:23:00 [facility] [place] Heart Rate 2016-10-15 07:23:00 [facility] Respitory Rate 2016-10-15 06:31:00 [facility] Heart Rate 2016-10-15 06:31:00 [facility] [place] Respitory Rate 2016-10-15 05:19:00 [facility] [place] Heart Rate 2016-10-15 05:19:00 [facility] [place] Temperature Oral (F) 2016-10-15 04:03:00 97.9 F [facility] Height 2016-10-15 02:48:00 154.94 cm [facility] Weight 2016-10-15 02:48:00 [facility] BMI Calculated 2016-10-15 02:48:00 [facility] Temperature Oral (F) 2016-10-15 02:48:00 98.1 F [facility] [place] Respitory Rate 2015-06-26 14:00:00 [facility] [place] Systolic (mm Hg) 2015-06-26 14:00:00 [facility] [place] Diastolic (mm Hg) 2015-06-26 14:00:00 [facility] Temperature Oral (F) 2015-06-26 14:00:00 97.3 F [facility] Heart Rate 2015-06-26 14:00:00 [facility] [place] Respitory Rate 2015-06-26 10:58:00 [facility] [place] Systolic (mm Hg) 2015-06-26 10:58:00 [facility] [place] Diastolic (mm Hg) 2015-06-26 10:58:00 [facility] [place] Heart Rate 2015-06-26 10:58:00 [facility] [place] Temperature Oral (F) 2015-06-26 10:58:00 97.8 F [facility] [place] Systolic (mm Hg) 2015-06-26 06:24:00 [facility] [place] Diastolic (mm Hg) 2015-06-26 06:24:00 [facility] [place] Respitory Rate 2015-06-26 06:24:00 [facility] [place] Temperature Oral (F) 2015-06-26 06:24:00 98.1 F [facility] Heart Rate 2015-06-26 06:24:00 [facility] [place] Weight 2015-06-24 23:41:00 [facility] BMI Calculated 2015-06-24 23:41:00 [facility] [place] Height 2015-06-24 23:41:00 152.4 cm [facility] [place] Height 2015-06-24 17:52:00 152.4 cm [facility] Weight 2015-06-24 17:52:00 [facility] [place] BMI Calculated 2015-06-24 17:52:00 [facility] Respitory Rate 2015-06-20 18:01:00 [facility] [place] Heart Rate 2015-06-20 18:01:00 [facility] Temperature Oral (F) 2015-06-20 18:01:00 97.8 F [facility] [place] Systolic (mm Hg) 2015-06-20 18:01:00 [facility] Diastolic (mm Hg) 2015-06-20 18:01:00 [facility] Systolic (mm Hg) 2015-06-20 15:47:00 [place] [place] Diastolic (mm Hg) 2015-06-20 15:47:00 [facility] Respitory Rate 2015-06-20 14:29:00 [facility] Heart Rate 2015-06-20 14:15:00 [facility] Temperature Oral (F) 2015-06-20 14:15:00 97.6 F [facility] Respitory Rate 2015-06-20 14:15:00 [facility] [place] Systolic (mm Hg) 2015-06-20 14:15:00 [facility] Diastolic (mm Hg) 2015-06-20 14:15:00 [facility] Heart Rate 2015-06-20 11:32:00 [facility] [place] Temperature Oral (F) 2015-06-20 11:00:00 98.1 F [facility] [place] Weight 2015-06-20 05:17:00 [facility] [place] BMI Calculated 2015-06-20 05:17:00 [facility] [place] Height 2015-06-20 05:17:00 152.4 cm [facility] [place] BMI Calculated 2015-06-19 15:36:00 [facility] Weight 2015-06-19 15:36:00 [facility] Height 2015-06-19 15:36:00 152.4 cm [facility] Systolic (mm Hg) 2014-08-27 09:05:00 [place] [place] Respitory Rate 2014-08-27 09:05:00 [facility] Diastolic (mm Hg) 2014-08-27 09:05:00 [facility] Temperature Oral (F) 2014-08-27 09:05:00 97.9 F [facility] Heart Rate 2014-08-27 09:05:00 [facility] [place] Systolic (mm Hg) 2014-08-27 07:03:00 [place] [place] Heart Rate 2014-08-27 07:03:00 [facility] Diastolic (mm Hg) 2014-08-27 07:03:00 [facility] [place] Respitory Rate 2014-08-27 07:03:00 [facility] Temperature Oral (F) 2014-08-27 07:03:00 97.6 F [facility] [place] Height 2014-08-27 07:03:00 154.94 cm [facility] [place] Weight 2014-08-27 07:03:00 [facility] [place] BMI Calculated 2014-08-27 07:03:00 [facility] [place] Systolic (mm Hg) 2014-04-08 07:45:00 [place] [place] Diastolic (mm Hg) 2014-04-08 07:45:00 [facility] [place] Respitory Rate 2014-04-08 07:45:00 [facility] [place] Temperature Oral (F) 2014-04-08 07:45:00 97.8 F [facility] [place] Heart Rate 2014-04-08 04:56:00 [facility] Respitory Rate 2014-04-08 04:56:00 [facility] Diastolic (mm Hg) 2014-04-08 04:56:00 [facility] [place] Systolic (mm Hg) 2014-04-08 04:56:00 [facility] Weight 2014-04-08 02:32:00 [facility] [place] BMI Calculated 2014-04-08 02:32:00 [facility] Height 2014-04-08 02:32:00 154.94 cm [facility] Temperature Oral (F) 2014-04-08 02:32:00 98.4 F [facility] [place] Systolic (mm Hg) 2014-04-08 02:32:00 [facility] [place] Heart Rate 2014-04-08 02:32:00 [facility] Diastolic (mm Hg) 2014-04-08 02:32:00 [facility] [place] Respitory Rate 2014-04-08 02:32:00 [facility] [place] Diastolic (mm Hg) 2013-01-15 16:38:00 [facility] Systolic (mm Hg) 2013-01-15 16:38:00 [facility] Respitory Rate 2013-01-15 16:38:00 [facility] Heart Rate 2013-01-15 16:38:00 [facility] Temperature Oral (F) 2013-01-15 16:38:00 98.7 F [facility] [place] Diastolic (mm Hg) 2013-01-15 13:44:00 [facility] [place] Systolic (mm Hg) 2013-01-15 13:44:00 [facility] [place] Heart Rate 2013-01-15 13:44:00 [facility] [place] Respitory Rate 2013-01-15 13:44:00 [facility] [place] Temperature Oral (F) 2013-01-15 12:49:00 97.6 F [facility] [place] Heart Rate 2013-01-15 12:49:00 [facility] Diastolic (mm Hg) 2013-01-15 12:49:00 [facility] [place] Systolic (mm Hg) 2013-01-15 12:49:00 [facility] Respitory Rate 2013-01-15 12:49:00 [facility] Temperature Oral (F) 2013-01-15 08:34:00 97.3 F [facility] [place] Weight 2013-01-13 04:52:00 [facility] Height 2013-01-13 04:52:00 154.94 cm [facility] Height 2013-01-12 15:50:00 165.1 cm [facility] Weight 2013-01-12 15:50:00 [facility] [place] Weight 2013-01-12 15:36:00 [facility] [place] Height 2013-01-12 15:36:00 154.94 cm [facility] Height 2012-08-20 18:32:00 154.94 cm [facility] [place] Weight 2012-08-20 18:32:00 [facility] [place] Procedures Procedure Date / Time Performing Clinician Source Performed BI CARMEN GUIDED CORE BREAST 2022-12-02 16:48:00 Garrick Parish [facility] BIOPSY LEFT Medical Branch AUTHORIZATION FOR RELEASE 2022-11-20 05:01:00 Doctor Unassigned, [facility] XR ANKLE 3+ VW RIGHT 2022-11-10 02:15:09 Filiberto Prab[facility] XR FEMUR 2 VW RIGHT 2022-11-10 02:15:09 Filiberto Prabhakar [facility] ty [facility] XR HIPS 3 VW RIGHT 2022-11-10 02:15:09 Filiberto Prabhakar [facility] XR KNEE 3 VW RIGHT 2022-11-10 02:15:09 Filiberto Prabhakar [facility] XR TIBIA FIBULA 2 VW RIGHT 2022-11-10 02:15:09 Filiberto Prabhakar [facility] NOTICE OF PRIVACY 2022-11-10 01:16:58 Doctor Neal, [facility] PRACTICES [facility] CONSENT/REFUSAL FOR 2022-11-10 01:16:33 Doctor Neal [facility] DIAGNOSIS AND TREATMENT [facility] [place] XR KNEE 3 VW LEFT 2022-11-06 20:35:39 Jessica Wadsworth [facility] CT LUMBAR SPINE WO 2022-11-06 20:33:00 Jessica Wadsworth [facility] CONTRAST [facility] CT THORACIC SPINE WO 2022-11-06 20:33:00 Jessica Wadsworth [facility] CONTRAST Medical Branch CONSENT/REFUSAL FOR 2022-11-06 19:39:16 Doctor Neal [facility] DIAGNOSIS AND TREATMENT [facility] [place] BI ULTRASOUND BREAST 2022-11-06 19:34:01 Cindy Parish [facility] COMPLETE LEFT Medical Branch BI DIAGNOSTIC 2022-11-06 18:58:00 Cindy Parish [facility] TOMOSYNTHESIS LEFT Medical Bran h [facility] PATIENT FINANCIAL 2022-11-06 18:07:18 Doctor De Jesus [facility] POLICY [facility] REFERRAL- REQUEST/RESPONSE 2022-07-12 06:01:00 Doctor De Jesus [facility] PHOSPHORUS 2022-05-16 10:03:00 Rae Pang [facility] MAGNESIUM 2022-05-16 10:03:00 [facility] TROPONIN I 2022-05-16 10:03:00 Poly [facility] HEPATIC FUNCTION PANEL 2022-05-16 10:03:00 Rae Pang [facility] ([id number]) (ALB,T.PRO,BILI Medical Branch T,BU/BC,ALT,AST,ALK PHOS) BASIC METABOLIC PANEL (NA, 2022-05-16 10:03:00 Rae Pang [facility] K, CL, CO2, GLUCOSE, BUN, Medica l Branch CREATININE, CA) CBC WITH DIFF 2022-05-16 10:03:00 Rae Pang [facility] N-TERMINAL PRO-BNP 2022-05-16 10:03:00 Rae Pang [facility] TROPONIN I 2022-05-15 18:30:00 Dayanna Randolph [facility] URINE DRUG (IMMUNOASSAY) - 2022-05-15 16:32:00 Dayanna Randolph [facility] COMPREHENSIVE DRUG SCREEN Medica [facility] [place] SODIUM, URINE RANDOM 2022-05-15 16:32:00 Dayanna [facility] PROTEIN CREAT RATIO URINE 2022-05-15 16:32:00 Dayanna Randolph [facility] RANDOM [facility] TRANSTHORACIC ECHO (TTE) 2022-05-15 14:05:00 Dayanna Randolph [facility] COMPLETE [facility] PHOSPHORUS 2022-05-15 09:46:00 Rae Pang [facility] CREATINE KINASE 2022-05-15 09:46:00 Dayanna Randolph [facility] URIC ACID 2022-05-15 09:46:00 Dayanna Randolph [facility] MAGNESIUM 2022-05-15 09:46[facility]22-05-15 09:46:00 Dayanna Randolph [facility] THYROID STIMULATING 2022-05-15 09:46:00 Dayanna Randolph [facility] HORMONE [facility] COMP. METABOLIC PANEL 2022-05-15 09:46:00 Dayanna Randolph [facility] ([id number]) [facility] LIPID PANEL ([id number])(TOTAL 2022-05-15 09:46:00 Dayanna Randolph [facility] CHOLESTEROL, [facility] TRIGLYCERIDES, HDL) SEDIMENTATION RATE 2022-05-15 09:46:00 Dayanna Randolph [facility] CBC WITH DIFF 2022-05-15 09:46:00 Rae Pang [facility] PROTHROMBIN TIME / INR 2022-05-15 09:46:00 Dayanna Randolph [facility] N-TERMINAL PRO-BNP 2022-05-15 09:46:00 Dayanna Randolph [facility] AC VBG + LACTIC ACID 2022-05-15 09:46:00 Dayanna [facility] CT ANGIOGRAM HEAD 2022-05-15 05:34:47 Dayanna Randolph [facility] CT ANGIOGRAM NECK 2022-05-15 05:34:47 Tomasa david [facility] COMP. METABOLIC PANEL 2022-05-14 21:45:00 Singer Geo [facility] ([id number]) [facility] XR CHEST 1 VW 2022-05-14 21:07:[address] [facility] TROPONIN I 2022-05-14 20:28:[address] [facility] CBC WITH DIFF 2022-05-14 20:28:[address] [facility] GLYCOSYLATED HEMOGLOBIN 2022-05-14 20:28:00 Tomasa david [facility] (A1C) [facility] URINALYSIS 2022-05-14 20:24:00 [facility] HB ECG ROUTINE & RHYTHM 2022-05-14 20:16:04 Singer [facility] STRIP [facility] CONSENT/REFUSAL FOR 2022-05-14 18:39:57 Doctor Unaalisson, [facility] DI[facility]/REFUSAL FOR 2022-05-14 18:00:54 [facility] REFERRAL- REQUEST/RESPONSE 2022-04-15 05:01:00 Doctor Neal , [facility] POCT HEMOGLOBIN A1C TEST 2022-02-22 18:58:00 Anyi Marin [facility] Abdominal hysterectomy [facility] Cholecystectomy [facility] Colonoscopy [facility] Decompression of nerve via [facility] subclavian approach<sup>1</sup> Abdominal hysterectomy [facility] Cholecystectomy [facility] Encounters Start End Encounter Admission Attending Care Care Encounter Source Date/Time Date/Time Type Type Clinicians Facility Department ID 2021-06-04 Emergency [facility] [id number] Univers 20:07:20 ity of [facility] 2021-06-01 Emergency [facility] [id number] Univers 17:09:34 ity of [facility] 2021-06-01 Emergency [facility] [id number] Univers 06:11:39 ity of [facility] 2021-06-01 Emergency [facility] [id number] Univers 02:45:26 ity of [facility] 2023-01-26 2023-01-26 Refill Марина JUAREZ 1.2.840.114 10 [id number] Univers 00:00:00 00:00:00 , Cindy PEDIATRIC 350.1.13.10 [place] [id number] [address] 2023-01-14 2023-01-14 Outpatient R МАРИНА [facility] [id number] Univers 10:30:00 11:12:38 , CINDY arauz [facility] 2023-01-14 2023-01-14 Office Марина JUAREZ 1.2.840.114 10 [id number] Univers 10:30:00 11:12:38 Visit , Cindy PEDIATRIC 350.1.13.10 [place] [id number] [address] 2022-12-29 2022-12-29 Refill Tomas [facility] 1.2.840.114 [id number] Univers 00:00:00 00:00:00 [facility] 350.1.13.10 it y of [place] 4.2.7.2.686 Juaquin as LÓPEZ?BLEA [id number] [address] MEDICAL OFFICE BUILDING 2022-12-29 2022-12-29 Refill Марина JUAREZ 1.2.840.114 10 [id number] Univers 00:00:00 00:00:00 , Cindy PEDIATRIC 350.1.13.10 [place] [id number] [facility] PRIMARY [address] CARE CLINIC 2022-12-27 2022-12-27 Alexsandra Marin [facility] 1.2.840.114 [id number] Univers 00:00:00 00:00:00 [facility] 350.1.13.10 it y of [place] 4.2.7.2.686 Juaquin as LÓPEZ?BLEA [id number] Il florin [facility] [address] MEDICAL OFFICE BUILDING 2022-12-16 2022-12-16 Office [facility] 1.2.840.114 [id number] Univers 10:00:00 10:30:00 Visit Kezia LEAL 350.1.13.10 it[place] [id number] [facility] AND [address] DIABETES CLINIC 2022-12-16 2022-12-16 Outpatient R SHASHI [facility] [id number] Univers 10:00:00 10:00:00 JISHA ity of [facility] 2022-12-16 2022-12-16 Telephone [facility] 1.2.852.771 [id number] Univers 00:00:00 00:00:00 Kezia LEAL 350.1.13.10 [place] [id number] [facility] AND [address] DIABETES CLINIC 2022-12-02 2022-12-02 Outpatient R МАРИНА [facility] [id number] Univers 09:51:34 23:59:00 , CINDY ity of [facility] 2022-12-02 2022-12-02 [facility] 1.2.840.114 [id number] Univers 09:51:34 23:59:00 Encounter , Cindy SPECIALTY 350.1.13.10 it[place] AT [id number] Il florin LOVELACESofía [address] [facility] 2022-11-26 2022-11-26 Outpatient Shasha GUILLEN [facility] [id number] Univers 10:30:00 10:30:00 MARIA D ity of [facility] 2022-11-25 2022-11-25 Outpatient R SHASHI [facility] [id number] Univers 10:30:00 10:30:00 JISHA ity [facility] 2022-11-20 2022-11-20 Orders Doctor PURI 1.2.840.114 [id number] Univers 00:00:00 00:00:00 Only Unassigned, RAY 350.1.13.10 ity of [place] [facility] 4.2.7.2.686 Juaquin as [id number] [facility] [address] 2022-11-09 2022-11-09 Emergency X FILIBERTO PRABHAKAR [facility] ERT [id number] Univers 20:23:00 22:19:00 ity of [facility] 2022-11-09 2022-11-09 Emergency Filiberto Prabhakar [facility] 1.2.840.114 [id number] Univers 20:23:00 22:19:00 Rayshawn SANDERS 350.1.13.10 i ty of [place] [id number] [facility] [address] 2022-11-06 2022-11-06 Emergency Jessica Wadsworth [facility] 1.2.840.114 10 [id number] Univers 14:48:00 19:11:00 Michelle SANDERS 350.1.13.10 i ty of [place] 4.2.7.2.[place] [id number] [facility] [address] 2022-11-06 2022-11-06 [facility] 1.2.840.114 1 [id number] Univers 13:07:51 14:47:00 Encounter Cindy 350.1.13.10 [place] of [place] 4.2.7.2.[place] [id number] [facility] [address] 2022-11-06 2022-11-06 Outpatient R [facility] [id number] Univers 13:07:20 14:47:00 CINDY ity [facility] 2022-11-06 2022-11-06 Outpatient R [facility] [id number] Univers 13:07:20 14:47:00 , CINDY arauz [facility] 2022-11-06 2022-11-06 [facility] 1.2.840.114 1 [id number] Univers 13:07:20 14:47:00 Encounter , Cindy SANDERS 350.1.13.10 ity of [facility] 4.2.7.2.[place] [id number] [place] [address] [address] 2022-10-30 2022-10-30 Outpatient R [facility] [id number] Univers 13:15:00 13:15:00 , CINDY arauz [facility] 2022-10-29 2022-10-29 Refill Марина JUAREZ 1..840.114 10 [id number] Univers 00:00:00 00:00:00 , Cindy PEDIATRIC 350.1.13.10 [place] [id number] [facility] PRIMARY [address] CARE CLINIC 2022-10-24 2022-10-24 Outpatient R [facility] [id number] Univers 13:45:00 13:45:00 , CINDY arauz [facility] 2022-10-23 2022-10-23 Telephone [facility] 1.2.840.114 10 [id number] Univers 00:00:00 00:00:00 [facility] 350.1.13.10 it y of [place] 4.2.7.2.686 [place]uaquin as LÓPEZ?BLEA [id number] [address] MEDICAL OFFICE BUILDING 2022-10-07 2022-10-07 Refill Марина JUAREZ 1.2.840.114 10 [id number] Univers 00:00:00 00:00:00 , Cindy PEDIATRIC 350.1.13.10 [place] [id number] [facility] PRIMARY [address] CARE CLINIC 2022-10-03 2022-10-03 Refill [facility] 1.2.840.114 10 [id number] Univers 00:00:00 00:00:00 , Cindy SANDERS 350.1.13.10 it[place] of [place].2.7.2.[place] PROF[place] [id number] Il dical NAL 044 [facility] 2022-10-03 2022-10-03 Refarianne Marin [facility] 1.2.840.114 [id number] Univers 00:00:00 00:00:00 [facility] 350.1.13.10 it y of [place] 4.2.7.2.686 Juaquin as LÓPEZ?BLEA [phone] [facility] KHOI [address] MEDICAL OFFICE [facility] 2022-09-25 2022-09-25 Refarianne [facility] 1.2.840.114 [id number] Univers 00:00:00 00:00:00 [facility] 350.1.13.10 it y of [place] 4.2.7.2.686 [place]quin as LÓPEZ?BLEA [id number] [facility] [address] MEDICAL OFFICE [facility] 2022-09-12 2022-09-12 Telephone [facility] 1.2.840.114 [id number] Univers 00:00:00 00:00:00 , Cindy SANDERS 350.1.13.10 it[place] of [place] 4.2.7.2.[place] PROFESS[place] [id number] Il dical NAL 044 [facility] 2022-08-29 2022-08-29 Urgent Moo Brock [facility] 1.2.840.114 [id number] Univers 13:20:00 13:40:00 Care Unknown, Attending HEALTH 350.1.13.10 ity of [place] 4.2.7.2.686 Juaquin as LÓPEZ?BLEA [id number] [facility] KHOI [address] [facility] OFFICE [facility] 2022-08-29 2022-08-29 Outpatient R HEATHER [facility] [id number] Univers 13:20:00 13:20:00 MOO ity [facility] 2022-08-18 2022-08-18 Refill Jhon JUAREZ 1.2.840.114 [id number] Univers 00:00:00 00:00:00 , Carlee PEDIATRIC 350.1.13.10 ity [place] [id number] [place] [address] [address] [facility] 2022-08-18 2022-08-18 Refill Марина JUAREZ 1.2.840.114 99 [id number] Univers 00:00:00 00:00:00 , Cindy PEDIATRIC 350.1.13.10 [place] [id number] [place] [address] [address] [facility] 2022-08-16 2022-08-16 Refill Jhon LARRY 1.2.840.114 99 [id number] Univers 00:00:00 00:00:00 , Carlee PEDIATRIC 350.1.13.10 it[place] [id number] [address] 2022-08-16 2022-08-16 Refill Tomas [facility] 1.2.840.114 [id number] Univers 00:00:00 00:00:00 [facility] 350.1.13.10 ity of [place] [id number] [facility] AND [address] DIABETES CLINIC 2022-08-14 2022-08-14 Telephone Tomas [facility] 1.2.389.961 [id number] Univers 00:00:00 00:00:00 [facility] 350.1.13.10 it y of [place] 4.2.7.2.686 Juaquin as LÓPEZ?BLEA [phone] Il ileana[address] MEDICAL OFFICE BUILDING 2022-08-08 2022-08-08 Outpatient R RADIOLOGY [facility] [id number] Univers 13:41:24 23:59:00 ity of [facility] 2022-08-08 2022-08-08 Hospital Radiology [facility] 1.2.840.114 [id number] Univers 13:41:24 23:59:00 Encounter TOMMY 350.1.13.10 ity of [place].2.7.2.[place] [id number] [facility] [address] 2022-08-03 2022-08-04 Outpt Diag MHIE [facility] [id number] Memoria 19:59:00 05:59:00 Services Outpatient 12 l Imaging Derek Mcmanus 2022-08-03 2022-08-04 Outpt Diag MHIE [facility] [id number] Memoria 19:59:00 05:59:00 Services Outpatient 12 l Imaging Derek Mcmanus 2022-08-03 2022-08-03 Outpatient Jey MHOIP OIP [id number] 13:59:00 23:59:00 Mamta Ruelas 12 2022-07-18 2022-07-18 Nurse Nurse, Maggie JUAREZ 1.2.84 0.114 [id number] Univers 15:10:00 16:05:44 Visit Anyi Marin PEDIATRIC 350.1.13.10 ity of S AND 4.2.7.2.686 [facility] [id number] [facility] PRIMARY [address] CARE CLINIC 2022-07-18 2022-07-18 [facility] [id number] Univers 15:10:00 15:10:00 ANYI ity [facility] 2022-07-16 2022-07-16 Telephone [facility] 1.2.439.534 [id number] Univers 00:00:00 00:00:00 Anyi NEWPEC 350.1.13.10 ity of [place] 4.2.7.2.686 [facility] [id number] [address] DIABETES CLINIC 2022-07-15 2022-07-15 Outpatient [facility] [id number] Univers 14:15:00 15:21:06 ANYI ity [facility] 2022-07-15 2022-07-15 Office [facility] 1.2.840.114 [id number] Univers 14:15:00 15:21:06 Visit Anyi MULTISPEC 350.1.13.10 ity of [place] 4.2.7.2.686 [facility] [id number] [facility] [address] DIABETES CLINIC 2022-07-12 2022-07-12 Orders Doctor JAXSON 1.2.840.114 [id number] Univers 00:00:00 00:00:00 Only Unassigned, RAY 350.1.13.10 ity of [place] [facility] 4.2.7.2.686 Juaquin as [id number] [facility] [address] 2022-07-02 2022-07-02 Refarianne JUAREZ 1.2.840.114 [id number] Univers 00:00:00 00:00:00 , Carlee PEDIATRIC 350.1.13.10 it[place] [id number] [address] 2022-06-18 2022-06-18 Office Марина JUAREZ 1.2.840.114 [id number] Univers 16:15:00 16:45:00 Visit , Cindy PEDIATRIC 350.1.13.10 [place] [id number] [address] 2022-06-18 2022-06-18 Outpatient R МАРИНА [facility] [id number] Univers 16:15:00 16:15:00 , CINDY rodriguezy [facility] 2022-06-14 2022-06-14 Telephone Team [facility] JAXSON 1.2.840.114 [id number] Univers 00:00:00 00:00:00 Health RAY 350.1.13.10 it y of [facility] HOSPITAL 4.2.7.2.686 [place] [id number] [facility] [address] 2022-06-10 2022-06-10 Telephone Tomas ILELISSA 1.2.259.183 [id number] Univers 00:00:00 00:00:00 Anyi HEALTH 350.1.13.10 it y of [place] 4.2.7.2.686 Juaquin as LÓPEZ?BLEA [id number] Il ileana[address] MEDICAL OFFICE BUILDING 2022-06-03 2022-06-03 Telephone LARRY Anna 1.2.840.114 9 [id number] Univers 00:00:00 00:00:00 Twila PEDIATRIC 350.1.13.10 [place] [id number] [facility] PRIMARY [address] CARE CLINIC 2022-05-30 2022-05-30 Refarianne Marin [facility] 1.2.840.114 [id number] Univers 00:00:00 00:00:00 Anyi MULTISPEC 350.1.13.10 ity of [place].2.[place] [id number] [facility] AND [place] [address] DIABETES CLINIC 2022-05-30 2022-05-30 Refill Марина JUAREZ 1.2.840.114 [id number] Univers 00:00:00 00:00:00 , Cindy PEDIATRIC 350.1.13.10 ity [place] [id number] [facility] PRIMARY [address] CARE CLINIC 2022-05-28 2022-05-28 Outpatient Shasha [facility] [id number] Univers 16:30:00 16:30:00 , CINDY ity of [facility] 2022-05-17 2022-05-17 Transition EMERALD Lynch 1.2.840.114 [id number] Univers 00:00:00 00:00:00 of Care Fernando WEI 350.1.13.10 [place] of [place].2.[place] [id number] [facility] [address] 2022-05-14 2022-05-16 Emergency Geo Chaudhari [facility] 1.2.840. 114 [id number] Univers 14:30:00 12:35:00 Rae Pang 350.1.13.10 ity of [place].2.[place] [id number] [facility] [address] 2022-05-14 2022-05-14 Nurse Nurse, Juan M [facility] 1.2.840.114 [id number] Univers 13:15:00 13:35:00 Visit Moo Brock 350.1.13.10 ity of [place] 4.2.7.2.686 Juaquin as LÓPEZ?BLEA [id number] Il florin CARLYLE [address] [place] [address] MEDICAL OFFICE BUILDING 2022-05-14 2022-05-14 Outpatient R NATHENLOLLYOusmane [facility] [id number] Univers 13:15:00 13:15:00 MOO [facility] 2022-05-14 2022-05-14 Outpatient R DAVE, [facility] [id number] Univers 12:50:00 12:50:00 ATTENDING y [facility] 2022-05-14 2022-05-14 Orders Doctor JAXSON 1.2.840.114 [id number] Univers 00:00:00 00:00:00 Only Unassigned, RYA 350.1.13.10 ity of [place] [facility] 4.2.7.2.686 Juaquin as [id number] [address] 2022-04-16 2022-04-16 Outpatient R TOMAS [facility] [id number] Univers 09:00:00 09:00:00 [facility] 2022-04-16 2022-04-16 [facility] [id number] Univers 09:00:00 09:00:00 [facility] 2022-04-16 2022-04-16 [facility] [id number] Univers 09:00:00 09:00:00 [facility] 2022-04-15 2022-04-15 Orders Doctor JAXSON 1.2.840.114 [id number] Univers 00:00:00 00:00:00 Only Unassigned, RAY 350.1.13.10 ity of [place] [facility] 4.2.7.2.686 Juaquin as [id number] [facility] [address] 2022-04-09 2022-04-09 Telephone FlemingPeggy greco 1.2.840.114 9 [id number] Univers 00:00:00 00:00:00 Y PEDIATRIC 350.1.13.10 it[place] [id number] [facility] PRIMARY [address] CARE CLINIC 2022-04-05 2022-04-05 Telephone Team, [facility] JAXSON 1.2.840.114 9 [id number] Univers 00:00:00 00:00:00 Health RAY 350.1.13.10 it y of [facility] 4.2.7.2.686 [place] [id number] [place] [address] [address] 2022-03-29 2022-03-29 Refill Jhon JUAREZ 1.2.840.114 [id number] Univers 00:00:00 00:00:00 , Carlee PEDIATRIC 350.1.13.10 it[place] [id number] [address] CARE CLINIC 2022-03-21 2022-03-21 Outpatient R [facility] [id number] Univers 14:00:00 16:14:07 ANYI ity [facility] 2022-03-21 2022-03-21 Nurse Nurse, Ang Endo/Diab [facility] 1.2.8 40.114 [id number] Univers 14:00:00 16:14:07 Visit Tomas [facility] 350.1.13.10 ity of [place] 4.2.7.2.686 Juaquin as LÓPEZ?BLEA [id number] [address] MEDICAL OFFICE [facility] 2022-03-21 2022-03-21 Outpatient R [facility] [id number] Univers 14:00:00 14:00:00 ANYI ity [facility] 2022-03-21 2022-03-21 Telephone [facility] 1.2.549.396 [id number] Univers 00:00:00 00:00:00 [facility] 350.1.13.10 it y of [place] 4.2.7.2.686 [place]uaquin as LÓPEZ?BLEA [id number] [address] MEDICAL OFFICE [facility] 2022-03-19 2022-03-19 Refill Марина JUAREZ 1.2.840.114 [id number] Univers 00:00:00 00:00:00 , Cindy PEDIATRIC 350.1.13.10 it[place] [id number] [address] 2022-03-18 2022-03-18 Outpatient R [facility] [id number] Univers 13:41:45 23:59:00 [facility] 2022-03-18 2022-03-18 [facility] 1.2.840.114 [id number] Univers 13:41:45 23:59:00 Encounter [facility] 350.1.13.10 ity of [place] AT [id number] [facility] HONOLULUSofía 800 [facility] 2022-03-18 2022-03-18 Outpatient R [facility] [id number] Univers 13:41:45 23:59:00 [facility] 2022-03-16 2022-03-16 Refill Марина JUAREZ 1.2.840.114 [id number] Univers 00:00:00 00:00:00 , Cindy PEDIATRIC 350.1.13.10 [place] [id number] [address] 2022-03-14 2022-03-14 Outpatient R [facility] [id number] Univers 00:00:00 00:00:00 [facility] 2022-02-28 2022-02-28 [facility] 1.2.338.301 [id number] Univers 00:00:00 00:00:00 [facility] 350.1.13.10 it y of [place] 4.2.7.2.686 Juaquin as LÓPEZ?BLEA [id number] Il florin CARLYLE [address] MEDICAL OFFICE BUILDING 2022-02-26 2022-02-26 Refill Jhon JUAREZ 1.2.840.114 [id number] Univers 00:00:00 00:00:00 , Carlee PEDIATRIC 350.1.13.10 it[place] [id number] [address] 2022-02-22 2022-02-22 [facility] [id number] Univers 14:00:00 14:15:07 ANYI ity of [facility] 2022-02-22 2022-02-22 [facility] 1.2.840.114 [id number] Univers 14:00:00 14:15:07 Visit [facility] 350.1.13.10 it y of [place] 4.2.7.2.686 Juaquin as LÓPEZ?BLEA 367.7501981 Il dical [facility] [address] MEDICAL OFFICE BUILDING 2022-02-22 2022-02-22 Orders Doctor JAXSON 1.2.840.114 [id number] Univers 00:00:00 00:00:00 Only Unassigned, RAY 350.1.13.10 ity of [place] [facility] 4.2.7.2.686 Juaquin as [id number] [place] [address] [address] 2022-02-08 2022-02-08 [facility] 1.2.840.114 [id number] Univers 00:00:00 00:00:00 [facility] MULTISPEC 350.1.13.10 it[place] of [place] [id number] [facility] AND [place] [address] DIABETES CLINIC 2022-02-08 2022-02-08 Refill Jhon JUAREZ 1.2.840.114 [id number] Univers 00:00:00 00:00:00 , Carele PEDIATRIC 350.1.13.10 [place] [id number] [facility] PRIMARY [address] CARE CLINIC 2022-01-16 2022-01-17 Outpt Diag nullFlavo [facility] [id number] Memoria 20:34:00 04:59:00 Services r Outpatient 11 l Imaging Derek [place] 2022-01-16 2022-01-17 Outpt Diag nullFlavo [facility] [id number] Memoria 20:34:00 04:59:00 Services r Outpatient 11 l Imaging Derek [place] 2022-01-16 2022-01-16 Outpatient ADELINE Khanna OIP [id number] 15:34:00 23:59:00 Mamta Ruelas 11 2022-01-11 2022-01-11 Orders Doctor JAXSON 1.2.840.114 [id number] Univers 00:00:00 00:00:00 Only Unassigned, RAY 350.1.13.10 ity of [place] [facility] 4.2.7.2.686 Juaquin as [phone] [facility] [address] 2022-01-09 2022-01-09 Outpatient R [facility] [id number] Univers 11:45:00 12:44:54 , CINDY y [facility] 2022-01-09 2022-01-09 Office Марина JUAREZ 1.2.840.114 [id number] Univers 11:45:00 12:44:54 Visit , Cindy PEDIATRIC 350.1.13.10 [place] [id number] [facility] PR[facility] [address] [facility] 2021-12-26 2021-12-26 Telephone Peggy Fleming 1.2.840.114 [id number] Univers 00:00:00 00:00:00 Y PEDIATRIC 350.1.13.10 [place] [phone] [address] [facility] 2021-12-26 2021-12-26 Transition HannafannieEMERALD 1.2.840.114 [id number] Univers 00:00:00 00:00:00 of Care Na WEI 350.1.13.10 i [place] [phone] [facility] [address] 2021-12-24 2021-12-25 Outpatient X CHERYL [facility] [id number] Univers 12:49:00 14:12:00 VILMA arauz [facility] 2021-12-24 2021-12-25 Emergency Stacey Brown [facility] 1.2.840 .114 [id number] Univers 12:49:00 14:12:00 Vilma Luna 350.1.13.10 [place] [phone] [facility] [address] 2021-12-19 2021-12-19 Outpatient R SUBHASH [facility] [id number] Univers 09:30:00 09:30:00 TWILA arauz [facility] 2021-12-19 2021-12-19 Refill Jhon JUAREZ 1.2.840.114 [id number] Univers 00:00:00 00:00:00 , Carlee PEDIATRIC 350.1.13.10 [place] [id number] [facility] [address] CARE [facility] 2021-11-27 2021-11-27 [facility] [id number] Univers 09:30:00 [facility]07[facility] 2021-11-27 2021-11-27 [facility] 1.2.840.114 [id number] Univers 09:30:00 10:07:42 Visit [facility] 350.1.13.10 it y of [place] 4.2.7.2.686 [place]uaquin as LÓPEZ?BLEA [phone] [address] MEDICAL OFFICE BUILDING 2021-11-27 2021-11-27 [facility] [id number] Univers 09:30:00 10:07:42 [facility] 2021-11-27 2021-11-27 [facility] [id number] Univers 09:30:00 09:30:00 [facility] 2021-11-27 2021-11-27 Orders Doctor PURI 1.2.840.114 [id number] Univers 00:00:00 00:00:00 Only Unassigned, RAY 350.1.13.10 ity of [place] [facility] 4.2.7.2.686 [place] as [phone] [facility] [address] 2021 2021 Refill Jhon JUAREZ 1.2.840.114 [id number] Univers 00:00:00 00:00:00 , Carlee PEDIATRIC 350.1.13.10 [place] [phone] [address] 2021-10-17 2021-10-17 Outpatient R GERI [facility] [id number] Univers 10:00:00 10:00:00 HUMAIR ity of [place] [facility] 2021-10-08 2021-10-08 Orders Doctor PURI 1.2.840.114 [id number] Univers 00:00:00 00:00:00 Only Unassigned, RAY 350.1.13.10 ity of [place] [facility] 4.2.7.2.686 Juaquin as [phone] [address] 2021-09-28 2021-09-28 Telephone FlemingPeggy greco 1.2.840.114 [id number] Univers 00:00:00 00:00:00 Y PEDIATRIC 350.1.13.10 [place] [id number] [address] 2021-09-19 2021-09-19 Outpatient R [facility] [id number] Univers 10:45:00 11:12:21 , CARLEE rodriguez y of [facility] 2021-09-19 2021-09-19 Office Jhon JUAREZ 1.2.840.114 [id number] Univers 10:45:00 11:12:21 Visit , Carlee PEDIATRIC 350.1.13.10 it[place] [phone] [address] 2021-09-11 2021-09-11 Outpatient R [facility] [id number] Univers 08:45:00 08:45:00 , CARLEE rodriguez y of [facility] 2021-09-11 2021-09-11 Refill Jhon JUAREZ 1.2.840.114 [id number] Univers 00:00:00 00:00:00 , Carlee PEDIATRIC 350.1.13.10 it[place] [phone] [address] 2021-09-10 2021-09-10 Refill Tomas [facility] 1.2.840.114 [id number] Univers 00:00:00 00:00:00 Anyi LEAL 350.1.13.10 ity of IALTY 4.2.7.2.686 [facility] [phone] [facility] AND [address] [facility] 2021-08-29 2021-08-29 Outpatient R [facility] [id number] Univers 08:45:00 08:45:00 , CARLEE it y of [facility] 2021-08-22 2021-08-22 [facility] 1.2.840.114 [id number] Univers 09:15:00 09:41:26 Visit Anyi LEAL 350.1.13.10 ity of IALTY 4.2.7.2.686 [facility] [phone] [facility] AND [address] [facility] 2021-08-22 2021-08-22 Outpatient R [facility] [id number] Univers 09:15:00 09:41:26 ANYI ity [facility] 2021-08-22 2021-08-22 Outpatient R [facility] [id number] Univers 09:15:00 09:15:00 ANYI ity [facility] 2021-08-22 2021-08-22 Outpatient R [facility] [id number] Univers 09:15:00 09:15:00 ANYI ity [facility] 2021-08-22 2021-08-22 Outpatient R [facility] [id number] Univers 09:15:00 09:15:00 ANYI ity [facility] 2021-08-15 2021-08-15 Orders Doctor PURI 1.2.840.114 [id number] Univers 00:00:00 00:00:00 Only Unassigned, RAY 350.1.13.10 ity of [place] [facility] 4.2.7.2.686 [facility] [id number] [place] [address] Branch 2021-07-30 2021-07-30 Telephone Tomas ILELISSA 1.2.728.906 [id number] Univers 00:00:00 00:00:00 Anyi MULTISPEC 350.1.13.10 it[place] [id number] [facility] [address] [facility] 2021-07-28 2021-07-28 Refill Jhon JUAREZ 1.2.840.114 [id number] Univers 00:00:00 00:00:00 , Carlee PEDIATRIC 350.1.13.10 it[place] [id number] [facility] [address] [facility] 2021-06-20 2021-06-20 Telephone Tomas [facility] 1.2.595.328 [id number] Univers 00:00:00 00:00:00 Anyi MULTISPEC 350.1.13.10 it[place] [phone] [facility] [address] [facility] 2021-06-13 2021-06-13 Refill Jhon JUAREZ 1.2.840.114 [id number] Univers 00:00:00 00:00:00 , Carlee PEDIATRIC 350.1.13.10 ity of [place] [phone] [place] [address] Branch [facility] 2021-06-09 2021-06-09 Orders Doctor JAXSON 1.2.840.114 [id number] Univers 00:00:00 00:00:00 Only Unassigned, RAY 350.1.13.10 ity of [place] [facility] 4.2.7.2.686 [place]uaquin as [id number] [facility] [address] 2021-05-16 2021-05-16 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 [facility] 1.2.840.114 [id number] Univers 11:33:51 11:48:51 Visit Anyi Marin 350.1.13.10 it[place] [id number] [facility] [address] [facility] 2021-05-16 2021-05-16 Outpatient R [facility] [id number] Univers 10:45:00 11:34:58 ANYI michaelsofía [facility] 2021-05-16 2021-05-16 Office [facility] 1.2.840.114 [id number] Univers 10:08:40 11:34:58 Visit Anyi LEAL 350.1.13.10 ity of IALTY 4.2.7.2.686 [facility] [id number] [facility] AND [address] DI[facility]ETES [facility]INIC 2021-05-16 2021-05-16 [facility] [id number] Univers 10:45:00 10:45:00 ANYI rodriguezy [facility] 2021-05-16 2021-05-16 Orders Doctor JAXSON 1.2.840.114 [id number] Univers 00:00:00 00:00:00 Only Unassigned, RAY 350.1.13.10 ity of [place] [facility] 4.2.7.[address] [place] [address] [phone] [facility] [address] 2021-04-30 2021-04-30 Outpatient R [facility] [id number] Univers 00:00:00 00:00:00 , CARLEE it y of [facility] 2021-04-30 2021-04-30 Telephone FlemingPeggy 1.2.840.114 [id number] Univers 00:00:00 00:00:00 Y Pediatric 350.1.13.10 ity of s and 4.2.7.2.686 [facility] s Adult [phone] [facility] Primary [address] Care Clinic 2021-04-27 2021-04-27 Telephone Team, [facility] JAXSON 1.2.840.114 [id number] Univers 00:00:00 00:00:00 Health RAY 350.1.13.10 it y of [facility] HOSPITAL 4.2.7.2.686 [place] [id number] [facility] [address] 2021-04-24 2021-04-24 Office Marlen [facility] 1.2.840.114 [id number] Univers 09:50:26 17:03:49 Visit Masha LEAL 350.1.13.10 ity of [place] [phone] [facility] AND [place] [address] DI[facility]ES CLINIC 2021-04-24 2021-04-24 Outpatient R [facility] [id number] Univers 10:00:00 10:00:00 MASHA michaelsofía o f [facility] 2021-04-20 2021-04-[address] [facility] 1.2.840.114 [id number] Univers 13:55:59 23:59:00 Encounter Anderson Romeo PRIMARY 350.1.13.10 ity of [place] [id number] [place] dicsd [address] 2021-04-20 2021-04-[address] [facility] 1.2.840.114 [id number] Univers 13:55:59 23:59:00 Encounter Anderson M PRIMARY 350.1.13.10 ity of [place] [phone] Il dicsd [address] 2021-04-20 2021-04-[address] [facility] 1.2.840.114 [id number] Univers 12:49:50 14:36:21 Visit Anderson Romeo PRIMARY 350.1.13.10 it[place] [phone] [facility] [address] 2021-04-20 2021-04-20 Outpatient R [facility] [id number] Univers 13:20:00 13:20:00 ANDERSON arauz [facility] 2021-04-11 2021-04-11 Outpatient R SHELL [facility] [id number] Univers 14:30:00 14:30:00 JAXSON arauz [facility] 2021-04-05 2021-04-05 Emergency Kevin [facility] 1.2.840.114 [id number] Univers 18:52:00 21:55:00 Stacey Sanders 350.1.13.10 i ty of [place] [phone] [facility] [address] 2021-04-05 2021-04-05 Emergency Brown, [facility] 1.2.840.114 [id number] Univers 18:52:00 21:55:00 Stacey Sanders 350.1.13.10 i ty of [place] 4.2.7.2.686 [facility] [phone] [facility] [address] 2021-03-19 2021-03-19 Refill Jhon Juarez 1.2.840.114 [id number] Univers 00:00:00 00:00:00 , Carlee Pediatric 350.1.13.10 ity of [place] s and [place] [id number] [facility] Primary [address] Care Clinic 2021-03-16 2021-03-16 Office Marlen [facility] 1.2.840.114 [id number] Univers 10:11:45 11:09:20 Visit Masha LEAL 350.1.13.10 ity of [place] 4.2.7.2.686 [facility] [phone] [facility] AND [address] DIABETES CLINIC 2021-03-16 2021-03-16 Outpatient R [facility] [id number] Univers 10:45:00 10:45:00 MASHA arauz o f [facility] 2021-03-15 2021-03-15 Telephone Peggy Fleming 1.2.840.114 [id number] Univers 00:00:00 00:00:00 Y Pediatric 350.1.13.10 ity of [place] [phone] [facility] Primary [address] Care Clinic 2021-03-13 2021-03-13 Drew George [facility] 1.2.840.114 [id number] Univers 10:01:42 23:59:00 Encounter Trish Sanders 350.1.13.10 ity of [place] 4.2.7.2.686 [facility] [phone] [facility] [address] 2021-03-13 2021-03-13 Urgent Trish George [facility] 1.2.840.114 [id number] Univers 09:35:51 10:04:29 Care Caroline Keys [facility] 350.1.13.10 ity of [place] 4.2.7.2.686 [place]quin as Professio [phone] Il dicsd nal [address] Office [facility] 2021-03-13 2021-03-13 Outpatient R [facility] [id number] Univers 09:40:00 09:40:00 CAROLINE ity o f [facility] 2021-02-23 2021-02-23 Refarianne Juarez 1.2.840.114 [id number] Univers 00:00:00 00:00:00 , Carlee Pediatric 350.1.13.10 ity of M s and [place] [phone] [facility] Primary [address] Care Clinic 2021-02-19 2021-02-19 Laboratory Lab, Adc Fam Pob I [facility] 1.2. 840.114 [id number] Univers 19:43:14 20:03:14 Only Ariel [facility] 350.1.13.10 ity of [place] 4.2.7.2.686 [place] as Professio [phone] [address] Office [facility] 2021-02-19 2021-02-19 Out[facility] [id number] Univers 19:40:00 19:40:00 TRISH ity of [facility] 2021-02-19 2021-02-19 Orders Doctor PURI 1.2.840.114 [id number] Univers 00:00:00 00:00:00 Only Unassigned, RAY 350.1.13.10 ity of [place] [facility] 4.2.7.2.686 [place] as [phone] [facility] [address] 2021-02-14 2021-02-14 Office [facility] 1.2.840.114 [id number] Univers 08:10:15 09:15:02 Visit Anyi LEAL 350.1.13.10 it[place] of [place] [id number] [facility] AND [place] [address] DIABETES CLINIC 2021-02-14 2021-02-14 Outpatient [facility] [id number] Univers 08:45:00 08:45:00 ANYI arauz [facility] 2021-02-14 2021-02-14 Orders Doctor JAXSON 1.2.840.114 [id number] Univers 00:00:00 00:00:00 Only Unassigned, RAY 350.1.13.10 ity of [place] [facility] 4.2.7.2.686 [place] as [id number] [facility] [address] 2021-02-12 2021-02-12 Outpatient [facility] [id number] Univers 16:00:00 16:00:00 MIGUEL regla [facility] 2021-02-12 2021-02-12 Outpatient [facility] [id number] Univers 10:45:00 10:45:00 ANYI arauz [facility] 2021-02-09 2021-02-09 Telephone Peggy Fleming 1.2.840.114 [id number] Univers 00:00:00 00:00:00 Y Pediatric 350.1.13.10 ity of [place] [phone] [facility] Primary [address] Care Clinic 2021-02-08 2021-02-08 Office Panda [facility] 1.2.840.114 [id number] Univers 09:30:56 10:55:48 Visit Constance LEAL 350.1.13.10 ity of [place] [phone] [facility] AND [place] [address] [address] DIABETES CLINIC 2021-02-08 2021-02-08 Outpatient R [facility] [id number] Univers 09:40:00 09:40:00 CONSTANCE arauz [facility] 2021-02-08 2021-02-08 Orders Doctor PURI 1.2.840.114 [id number] Univers 00:00:00 00:00:00 Only Unassigned, RAY 350.1.13.10 ity of [place] [facility] 4.2.7.2.686 [place]uaquni as [phone] [facility] [address] 2021-02-07 2021-02-07 Refill FILIBERTO Rai 1.2.840.114 [id number] Univers 00:00:00 00:00:00 Wentong MULTISPEC 350.1.13.10 ity of [place] [id number] [facility] AND [address] [facility]ES [facility]IC 2021-01-21 2021-01-21 Refill Jhon Juarez 1.2.840.114 [id number] Univers 00:00:00 00:00:00 , Carlee Pediatric 350.1.13.10 ity of M s and [place] [phone] [address] 2021-01-15 2021-01-15 Refill Peggy Flemign 1.2.840.114 [id number] Univers 00:00:00 00:00:00 Y Pediatric 350.1.13.10 ity of [place] [id number] [address] 2021-01-06 2021-01-06 Refill Jhon Juarez 1.2.840.114 84 [id number] Univers 00:00:00 00:00:00 , Carlee Pediatric 350.1.13.10 ity of [place] [phone] [address] 2020-12-27 2020-12-27 Refill Jhon Juarez 1.2.840.114 84 [id number] Univers 00:00:00 00:00:00 , Carlee Pediatric 350.1.13.10 ity of [place] and [place] [phone] [address] 2020-12-17 2020-12-17 Refill Jhon Juarez 1.2.840.114 [id number] Univers 00:00:00 00:00:00 , Carlee Pediatric 350.1.13.10 ity of [place] and [place].2.[place] [id number] [address] 2020-12-17 2020-12-17 Refill Peggy Fleming 1.2.840.114 [id number] Univers 00:00:00 00:00:00 Y Pediatric 350.1.13.10 ity of [place] [id number] [address] 2020-12-11 2020-12-11 Outpatient R FREDI [facility] [id number] Univers 11:00:00 11:00:00 FRANCISCO JAVIERONG ity [facility] 2020-12-05 2020-12-05 Office Jhon Juarez 1.2.840.114 [id number] Univers 09:26:46 10:29:25 Visit , Carlee Pediatric 350.1.13.10 ity of M s and [place] [phone] [address] 2020-12-05 2020-12-05 Outpatient R JHON [facility] [id number] Univers 09:45:00 09:45:00 , CARLEE it y of [facility] 2020-11-29 2020-11-29 Outpatient R [facility] [id number] Univers 10:30:00 10:30:00 , CARLEE it y [facility] 2020-11-28 2020-11-28 Outpatient R [facility] [id number] Univers 10:15:00 10:15:00 , CARLEE it y [facility] 2020-11-20 2020-11-20 Refill Jhon Serranoin 1.2.840.114 [id number] Univers 00:00:00 00:00:00 , Carlee Pediatric 350.1.13.10 ity of [place] and [place].2.[place] [id number] [address] 2020-11-16 2020-11-16 Refill Jhon Juarez 1.2.840.114 [id number] Univers 00:00:00 00:00:00 , Carlee Pediatric 350.1.13.10 ity of [place] and [place]2.[place].2.[place] [phone] [address] 2020-10-26 2020-10-26 Office Jhon Juarez 1.2.840.114 [id number] Univers 09:58:50 10:39:27 Visit , Carlee Pediatric 350.1.13.10 ity of [place] s and [place]2.[place].2.[place] [id number] [address] 2020-10-26 2020-10-26 Outpatient R JHON [facility] [id number] Univers 10:15:00 10:15:00 , CARLEE rodriguez y of [facility] 2020-10-25 2020-10-25 Outpatient R OCTAVIO [facility] [id number] Univers 08:00:00 08:00:00 CECE ity [facility] 2020-10-25 2020-10-25 Orders Jhon Juarez 1.2.840.114 [id number] Univers 00:00:00 00:00:00 Only , Carlee Pediatric 350.1.13.10 ity of M s and [place]2.7.2.[place] [phone] [address] 2020-10-23 2020-10-23 Outpatient R [facility] [id number] Univers 10:45:00 10:45:00 ity of [facility] 2020-10-23 2020-10-23 Laboratory Only, Adc Test [facility] 1.2.840. 114 [id number] Univers 07:54:11 08:09:11 Only Camron Barone 350.1.13. 10 ity of [place].2.[place] [phone] [address] 2020-10-23 2020-10-23 Telephone FlemingPeggy greco 1.2.840.114 [id number] Univers 00:00:00 00:00:00 Y Pediatric 350.1.13.10 ity of s and [place].2.[place] [id number] [address] 2020-10-20 2020-10-20 Refill Fredi [facility] 1.2.840.114 [id number] Univers 00:00:00 00:00:00 Wentong MULTISPEC 350.1.13.10 ity of [place]2.[place] [phone] [facility] AND [place] [address] [facility]ES [facility] 2020-10-14 2020-10-14 [facility] 1.2.840.114 [id number] Univers 00:00:00 00:00:00 Outreach Matthew PRIMARY 350.1.13.10 i ty of [facility] 4.2.7.2.686 [place] [facility] [phone] Il dical [address] 2020-10-10 2020-10-10 Orders Doctor JAXSON 1.2.840.114 [id number] Univers 00:00:00 00:00:00 Only Unassigned, RAY 350.1.13.10 ity of [place] [facility] 4.2.7.2.686 [place] as [phone] [facility] [address] 2020-10-02 2020-10-02 Hospital Saqib [facility] 1.2.840.114 [id number] Univers 15:53:30 23:59:00 Encounter [facility] 350.1.13.10 ity of Surgical 4.2.7.2.686 [place] as Specialti [phone] Me dical es 809 [facility] 2020-10-02 2020-10-02 Office Napoleon Cerrato [facility] 1.2.840. 114 [id number] Univers 15:50:37 16:36:54 Visit Manny Mccray [facility] 350.1.13.10 ity of Surgical 4.2.7.2.686 [place] as Specialti [phone] Me dical es 198 [facility] 2020-10-02 2020-10-02 Outpatient Shasha MCCRAY [facility] [id number] Univers 16:15:00 16:15:00 MANNY arauz [facility] 2020-09-29 2020-09-29 Outpatient Shasha NEVAREZ [facility] [id number] Univers 09:00:00 09:00:00 CHANDNI ity of [facility] 2020-09-26 2020-09-26 Office Jhon Juarez 1.2.840.114 [id number] Univers 11:04:39 12:39:07 Visit , Carlee Pediatric 350.1.13.10 ity of [place] and [place] [id number] [facility] Primary [address] Care [facility] 2020-09-26 2020-09-26 Outpatient R JHON [facility] [id number] Univers 11:15:00 11:15:00 , CARLEE it y of [facility] 2020-09-22 2020-09-22 Office [facility] 1.2.840.114 [id number] Univers 10:20:33 12:12:58 Visit Manny [facility] 350.1.13.10 it y of Surgical 4.2.7.2.686 [place] as Specialti [phone] Il dical es 198 [facility] 2020-09-22 2020-09-22 Outpatient R MAHENDRA [facility] [id number] Univers 10:15:00 10:15:00 [facility] 2020-09-21 2020-09-21 Outpatient R FREDI [facility] [id number] Univers 08:30:00 08:30:00 MIGUEL ity [facility] 2020-09-21 2020-09-21 Case Jhno Juarez 1.2.840.114 [id number] Univers 00:00:00 00:00:00 Management , Carlee Pediatric 350.1.13.10 ity of [place] and [place].2.[place] [id number] [facility] Primary [address] Care [facility] 2020-09-21 2020-09-21 Alexsandra Henry ILELISSA 1.2.840.114 [id number] Univers 00:00:00 00:00:00 Elijah Ruelas MULTISPEC 350.1.13.10 it[place] of [place] [phone] [facility] AND DAVE [address] [place] [address] DIABETES CLINIC 2020-09-21 2020-09-21 Peggy Flower 1.2.840.114 [id number] Univers 00:00:00 00:00:00 Y Pediatric 350.1.13.10 ity of [place] and [place].2.7.2.[place] [phone] [place] [address] Branch Care [facility] 2020-09-20 2020-09-20 Refarianne Rai [facility] 1.2.840.114 [id number] Univers 00:00:00 00:00:00 Miguel MULTISPEC 350.1.13.10 ity of [place]2.[place].2.[place] [id number] [facility] AND [place] [address] DI[facility]ES CLINIC 2020-09-16 2020-09-16 Alexsandra Henry ILELISSA 1.2.840.114 [id number] Univers 00:00:00 00:00:00 Elijah Ruelas MULTISPEC 350.1.13.10 ity of [place]2.[place].2.[place] [id number] [facility] AND [place] [address] DI[facility]ES CLINIC 2020-09-16 2020-09-16 Peggy Flower 1.2.840.114 [id number] Univers 00:00:00 00:00:00 Y Pediatric 350.1.13.10 ity of [place] and 4.2.7.2.[place] [phone] [place] [address] Branch Care [facility] 2020-09-04 2020-09-04 Office Fredi ILELISSA 1.2.840.114 [id number] Univers 13:43:11 14:52:57 Visit Miguel MULTISPEC 350.1.13.10 ity of [place] 4[place]2.7.2.[place] [id number] [facility] AND [place] [address] [facility] 2020-09-04 2020-09-04 Outpatient R FREDI ILELISSA [facility] [id number] Univers 14:00:00 14:00:00 MIGUEL ity of [facility] 2020-09-04 2020-09-04 Orders Doctor PURI 1.2.840.114 [id number] Univers 00:00:00 00:00:00 Only Unassigned, RAY 350.1.13.10 ity of [facility] 4.2.7.2.686 [place] as [id number] [place] [address] Branch 2020-08-21 2020-08-21 Alexsandra Henry ILELISSA 1.2.840.114 [id number] Univers 00:00:00 00:00:00 Elijah Ruelas MULTISPEC 350.1.13.10 it[place] [id number] [facility] AND [address] DIABETES CLINIC 2020-08-20 2020-08-20 Refarianne Diego [facility] 1.2.840.114 [id number] Univers 00:00:00 00:00:00 Rigoberto Lopez MULTISPEC 350.1.13.10 it[place] of [place]2.[place] [phone] [facility] AND [address] DIABETES CLINIC 2020-08-20 2020-08-20 Alexsandra Henry ILELISSA 1.2.840.114 [id number] Univers 00:00:00 00:00:00 Elijah Ruelas MULTISPEC 350.1.13.10 ity of [place].2.[place] [id number] [facility] AND [address] DIABETES CLINIC 2020-08-20 2020-08-20 Alexsandra Rai ILELISSA 1.2.840.114 [id number] Univers 00:00:00 00:00:00 Miguel MULTISPEC 350.1.13.10 ity of [place].2.[place] [id number] [facility] AND [address] DIABETES CLINIC 2020-08-20 2020-08-20 Alexsandra Juarez 1.2.840.114 [id number] [facility] 00:00:00 00:00:00 , [facility] 350.1.13.10 [place] [id number] [facility] [address] [facility] 2020-08-16 2020-08-16 Refarianne Rai ILELISSA 1.2.840.114 [id number] [facility] 00:00:00 00:00:00 Francisco Javierong MULTISPEC 350.1.13.10 [place] [id number] [facility] AND [facility] [place] [address] [facility] 2020-08-16 2020-08-16 Refarianne Juarez 1.2.840.114 [id number] [facility] 00:00:00 00:00:00 , [facility] 350.1.13.10 [place] [id number] [facility] [address] [facility] 2020-08-16 2020-08-16 Refarianne Rai ILELISSA 1.2.840.114 [id number] [facility] 00:00:00 00:00:00 Francisco Javierjoshua MULTISPEC 350.1.13.10 [place] [id number] [facility] AND [place] [address] [facility] 2020-08-16 2020-08-16 FILIBERTO Farley 1.2.840.114 [id number] [facility] 00:00:00 00:00:00 Elijah Ruelas MULTISPEC 350.1.13.10 [place] [id number] [place] [id number] [place] [facility] 2020-08-14 2020-08-14 FILIBERTO López 1.2.840.114 [id number] [facility] 00:00:00 00:00:00 Francisco Javierong MULTISPEC 350.1.13.10 [place] [id number] [facility] AND [place] [address] [facility] 2020-08-14 2020-08-14 Refarianne Juarez 1.2.840.114 [id number] [facility] 00:00:00 00:00:00 , [facility] 350.1.13.10 [place] M [place] [id number] [facility] [address] [facility] 2020-08-14 2020-08-14 Alexsandra Henry [facility] 1.2.840.114 [id number] [facility] 00:00:00 00:00:00 Elijah Ruelas MULTISPEC 350.1.13.10 [place] [id number] [facility] AND [address] DIABETES [facility] 2020-07-25 2020-07-25 Telephone FlemingPeggy greco 1.2.840.114 [id number] [facility] 00:00:00 00:00:00 Y Pediatric 350.1.13.10 [place] [phone] [facility] [address] [facility] 2020-07-21 2020-07-21 Case Jhon Juarez 1.2.840.114 [id number] [facility] 00:00:00 00:00:00 Management , [facility] 350.1.13.10 it[place] M [place] [phone] [address] 2020-07-21 2020-07-21 [facility] 1.2.840.114 [id number] [facility] 00:00:00 00:00:00 Elijah Ruelas MULTISPEC 350.1.13.10 [place] [phone] [address] DIABETES [facility] 2020-07-21 2020-07-21 Orders Doctor PURI 1.2.840.114 [id number] Univers 00:00:00 00:00:00 Only Unassigned, RAY 350.1.13.10 ity of [place] [facility] 4.2.7.2.686 Juaquin as [phone] [place] [address] [place] 2020-07-18 2020-07-18 FILIBERTO Castillo 1.2.840.114 [id number] Univers 00:00:00 00:00:00 Rigoberto Lopez MULTISPEC 350.1.13.10 [place] [phone] [facility] AND [address] DIABETES [facility] 2020-07-15 2020-07-15 Refarianne Rai ILELISSA 1.2.840.114 [id number] Univers 00:00:00 00:00:00 Francisco Javierong MULTISPEC 350.1.13.10 [place] [phone] [address] DI[facility]ES [facility] 2020-07-06 2020-07-06 [facility] 1.2.840.114 [id number] Univers 00:00:00 00:00:00 Rigoberto Lopez MULTISPEC 350.1.13.10 [place] [phone] [address] DIABETES CLINIC 2020-06-09 2020-06-09 Refeast [facility] 1.2.840.114 [id number] Univers 00:00:00 00:00:00 Rigoberto Lopez MULTISPEC 350.1.13.10 [place] [phone] [address] DIABETES [facility] 2020-06-05 2020-06-05 Outpatient R FREDI [facility] [id number] Univers 11:00:00 11:00:00 FRANCISCO JAVIERONG ity [facility] 2020-05-29 2020-05-29 Peggy Flower 1.2.840.114 [id number] Univers 00:00:00 00:00:00 Y Pediatric 350.1.13.10 [place] [id number] [address] 2020-05-10 2020-05-10 Peggy Flower 1.2.840.114 [id number] Univers 00:00:00 00:00:00 Y Pediatric 350.1.13.10 [place] [id number] [address] 2020-05-10 2020-05-10 [facility] 1.2.840.114 [id number] Univers 00:00:00 00:00:00 Rigoberto Lopez MULTISPEC 350.1.13.10 ity of IALTY 4.2.7.2.686 [facility] [phone] [address] DIABETES [facility] 2020-04-28 2020-04-28 Beverly Nevarez [facility] 1.2.840.114 [id number] Univers 00:00:00 00:00:00 (Out) Sree MULTISPEC 350.1.13.10 ity of IALTY 4.2.7.2.686 [facility] [phone] [address] DIABETES [facility] 2020-04-24 2020-04-24 Outpatient R OCTAVIO, [facility] [id number] Univers 13:00:00 13:00:00 CECE ity of [facility] 2020-04-19 2020-04-19 Laboratory Only, Adc Test [facility] 1.2.840. 114 [id number] Univers 11:31:34 11:46:34 Only Carlee Ferreira 350. 1.13.10 ity of [place] 4.2.7.2.686 [facility] [phone] [address] 2020-04-19 2020-04-19 Outpatient R JHON [facility] [id number] Univers 11:45:00 11:45:00 , CARLEE it y of [facility] 2020-04-14 2020-04-14 Emergency [facility] 1.2.840.114 [id number] Univers 16:13:00 21:19:00 [facility] 350.1.13.10 ity of [place] 4.2.7.2.686 [facility] [id number] [address] ([facility]) 2020-04-14 2020-04-14 Outpatient R DAVE, [facility] [id number] Univers 15:30:00 15:30:00 ATTENDING ity of [facility] 2020-04-10 2020-04-10 Refill Jhon Juarez 1.2.840.114 [id number] Univers 00:00:00 00:00:00 , Carlee Winters 350.1.13.10 it[place] of [place] [id number] [facility] Primary [facility] 2020-03-21 2020-03-21 Office Jhon Juarez 1.2.840.114 [id number] Univers 09:55:59 10:27:48 Visit , Carlee Pediatric 350.1.13.10 ity of M [place] and [place] [id number] [facility] Primary [address] [place] [address] 2020-03-21 2020-03-21 Outpatient R JHON [facility] [id number] Univers 10:00:00 10:00:00 , CARLEE it y of [facility] 2020-03-21 2020-03-21 Orders Doctor JAXSON 1.2.840.114 [id number] Univers 00:00:00 00:00:00 Only Unassigned, RAY 350.1.13.10 ity of [place] [facility] 4.2.7.2.686 [place] as [phone] [place] [address] [place] 2020-03-13 2020-03-13 Alexsandra Diego [facility] 1.2.840.114 [id number] Univers 00:00:00 00:00:00 Rigoberto Lopez MULTISPEC 350.1.13.10 [place] [phone] [address] DIABETES CLINIC 2020-02-24 2020-02-24 Telephone [facility] 1.2.176.676 [id number] Univers 00:00:00 00:00:00 Miguel Sanders 350.1.13.10 i ty of [place] [phone] Il dical [facility] 2020-02-21 2020-02-21 Office [facility] 1.2.840.114 [id number] Univers 08:04:50 09:03:34 Visit Miguel MULTISPEC 350.1.13.10 [place] [id number] [facility] AND [place] [address] DIABETES CLINIC 2020-02-21 2020-02-21 Outpatient R FREDI [facility] [id number] Univers 08:00:00 08:00:00 WENTONG ity of [facility] 2020-02-21 2020-02-21 Orders Doctor JAXSON 1.2.840.114 [id number] Univers 00:00:00 00:00:00 Only Unassigned, RAY 350.1.13.10 ity of [place] [facility] 4.2.7.2.686 [place] [phone] [place] [address] [place] 2020-02-16 2020-02-16 Outpatient R GERI [facility] [id number] Univers 10:00:00 10:00:00 HUMAIR ity of [facility] 2020-02-16 2020-02-16 Office [facility] 1.2.840.114 [id number] Univers 09:12:34 09:27:34 Visit [facility] 350.1.13.10 it y [place] [phone] [place] [address] [place] 2020-02-16 2020-02-16 Telephone Jhon Juarez 1.2.840.114 [id number] Univers 00:00:00 00:00:00 , Carlee Pediatric 350.1.13.10 it[place] of [place] [id number] [facility] Primary [address] [facility] 2020-02-15 2020-02-15 Office Jhon Juarez 1.2.840.114 [id number] Univers 11:28:15 13:16:26 Visit , Carlee Pediatric 350.1.13.10 ity of [place] [id number] [address] 2020-02-15 2020-02-15 Outpatient R JHON [facility] [id number] Univers 11:45:00 11:45:00 , CARLEE it y of [facility] 2020-02-12 2020-02-12 Emergency [facility] 1.2.774.805 [id number] Univers 17:23:38 20:32:00 Polly [place] 350.1.13.10 ity of [place]2.[place] [id number] [address] 2020-02-09 2020-02-09 Nurse Nurse, [facility] 1.2 .840.114 [id number] Univers 14:03:15 14:59:56 Visit Unknown, Attending SPECIALTY 350.1.13. 10 it[place] of [place]2.[place] AT [phone] Il florin Martinez [facility] 2020-02-09 2020-02-09 Outpatient R UNKNOWN, [facility] [id number] Univers 14:00:00 14:00:00 ATTENDING ity of [facility] 2020-01-28 2020-01-28 Peggy Flower 1.2.840.114 [id number] Univers 00:00:00 00:00:00 Y Pediatric 350.1.13.10 it[place] of s and [place] [phone] [address] 2020-01-26 2020-01-26 Emergency [facility] 1.2.220.857 [id number] Univers 17:11:57 18:46:00 Robson Sanders 350.1.13.10 i ty of [place]2.[place] [phone] [address] 2020-01-20 2020-01-20 Alexsandra Henry [facility] 1.2.840.114 [id number] Univers 00:00:00 00:00:00 Elijah Ruelas MULTISPEC 350.1.13.10 it[place] of [place] [phone] [facility] AND DAVE [address] [place] [address] DIABETES [facility] 2020-01-20 2020-01-20 Larry Wilhelm 1.2.840.114 [id number] Univers 00:00:00 00:00:00 Nemo Tinoco Pediatric 350.1.13.10 it[place] of [place] and [place] [phone] [facility] Primary [address] [facility] 2020-01-11 2020-01-11 Baljinder PURI 1.2.840.114 [id number] Univers 00:00:00 00:00:00 Only Unassigned, RAY 350.1.13.10 ity of [place] [facility] 4.2.7.2.686 [place] as [phone] [place] [address] [place] 2020-01-05 2020-01-05 Telephone Peggy Fleming 1.2.840.114 [id number] Univers 00:00:00 00:00:00 Y Pediatric 350.1.13.10 [place] [id number] [address] 2019-12-23 2019-12-23 RefPeggy Riggins 1.2.840.114 [id number] Univers 00:00:00 00:00:00 Y Pediatric 350.1.13.10 ity of [place] and [place] [phone] [address] 2019-12-22 2019-12-22 RefPeggy Riggins 1.2.840.114 [id number] Univers 00:00:00 00:00:00 Y Pediatric 350.1.13.10 ity of [place] [phone] [address] 2019-11-17 2019-11-17 Telephone Suzie Nevarez 1.2.840.114 [id number] Univers 00:00:00 00:00:00 Ali Pediatric 350.1.13.10 ity of [place] [phone] [address] 2019-11-10 2019-11-10 Urgent CareMaggie Adult Urgent Larry 1.2 .840.114 [id number] Univers 15:47:42 16:10:25 Suzie Omalley Pediatric 350.1.13.10 ity of s and [place]2.[place].2.[place] [phone] [address] 2019-11-10 2019-11-10 Outpatient SUZIE MEANS [facility] [id number] Univers 16:00:00 16:00:00 ity of [facility] 2019-11-10 2019-11-10 Telephone Peggy Fleming 1.2.840.114 [id number] Univers 00:00:00 00:00:00 Y Pediatric 350.1.13.10 it[place] of [place]2.[place] [id number] [address] 2019-11-05 2019-11-05 Patient Doctor [facility] 1.2.840.114 [id number] Univers 00:00:00 00:00:00 Secure Msg Unassigned, PRIMARY 350.1.13.10 it[place] of [place].2.[place] [phone] [place] [address] 2019-10-22 2019-10-23 Outpt Diag nullFlavo [facility] [id number] Memoria 14:00:00 04:59:00 Services r Outpatient 10 l Imaging [facility] 2019-10-22 2019-10-23 Outpt Diag nullFlavo [facility] [id number] Memoria 14:00:00 04:59:00 Services r Outpatient 10 l Imaging [facility] 2019-10-22 2019-10-22 Outpatient Humaira, MHOIP MHOIP [id number] 09:00:00 23:59:00 Masha Taylor 2019-10-08 2019-10-08 Refill Peggy Fleming 1.2.840.114 [id number] Univers 00:00:00 00:00:00 Y Pediatric 350.1.13.10 it[place] [id number] [address] 2019-10-06 2019-10-07 Office Peggy Fleming 1.2.840.114 [id number] Univers 08:27:09 13:00:22 Visit Y Pediatric 350.1.13.10 it[place] [id number] [address] 2019-10-06 2019-10-06 Outpatient PEGGY GALAN [facility] [id number] Univers 08:30:00 08:30:00 ity of [facility] 2019-08-26 2019-08-26 Telephone Peggy Fleming 1.2.840.114 [id number] Univers 00:00:00 00:00:00 Y Pediatric 350.1.13.10 it[place] of s [place] [id number] [facility] [address] [facility] 2019-08-25 2019-08-25 Office Peggy Fleming Larry 1.2.840.114 [id number] Univers 07:52:54 08:45:20 Visit Y Pediatric 350.1.13.10 ity of s and [place]2.[place] [phone] [facility] [address] [facility] 2019-07-12 2019-07-12 Outpatient Shasha HENRY [facility] [id number] Univers 00:00:00 00:00:00 ELIJAH ity [facility] 2019-06-24 2019-06-24 Outpatient Shasha HENRY [facility] [id number] Univers 00:00:00 00:00:00 ELIJAH aaruz [facility] 2019-04-26 2019-04-26 Outpatient Shasha CAI [facility] [id number] Univers 14:33:45 23:59:00 STACY [facility] 2019-04-17 2019-04-18 Urgent Obi Bui 1.2.840.11 [id number] Univers 11:50:10 11:34:59 Care Unknown, Attending Pediatric 350.1.13. 10 ity of [place] [id number] [facility] [address] [facility] 2019-04-18 2019-04-18 Letter Rosen, TRAUMA 1.2.840.114 [id number] Univers 00:00:00 00:00:00 (Out) [facility] 350.1.13.10 it y of [place]2.[place] [id number] [place] [address] [place] 2019-04-17 2019-04-17 [facility] Larry Bui 1.2.840.114 [id number] Univers 12:40:00 23:59:00 Encounter Obi Pedroza Pediatric 350.1.13.10 ity of [place] and [place]2.[place] [id number] [facility] [address] Care [facility] 2019-04-17 2019-04-17 Hospital Larry Bui 1.2.840.114 [id number] Univers 12:35:00 12:39:00 Encounter Obi Pedroza Pediatric 350.1.13.10 ity of [place] and [place] [id number] [facility] 8[address] [facility] 2019-04-17 2019-04-17 Outpatient R TYRA [facility] [id number] Univers 12:30:00 12:34:00 OBI ity of [facility] 2019-04-17 2019-04-17 [facility] Larry Bui 1.2.840.114 [id number] Univers 12:30:00 12:34:00 Encounter Obi Pedroza Pediatric 350.1.13.10 ity of s and [place]2.[place] [id number] [facility] 8[address] [facility] 2019-04-09 2019-04-09 Hospital Peggy Fleming [facility] 1.2.840.114 [id number] Univers 08:30:00 23:59:00 Encounter Y [place] 350.1.13.10 ity of [place].2.[place] [id number] [facility] [address] 2019-04-07 2019-04-07 Office Peggy Fleming 1.2.840.114 [id number] Univers 08:32:49 09:38:59 Visit Y Pediatric 350.1.13.10 ity of s and [place]2.[place] [phone] [facility] [address] [facility] 2019-04-06 2019-04-06 Telephone Peggy Fleming 1.2.840.114 [id number] Univers 00:00:00 00:00:00 Y Pediatric 350.1.13.10 ity of [place] [id number] [facility] [address] [facility] 2019-04-01 2019-04-01 Urgent Nemo Gerard [facility] 1.2.840. 114 [id number] Univers 10:32:51 10:47:51 Care Unknown, Attending SPECIALTY 350.1.13. 10 it[place] of [place]2.[place] AT [phone] Il florin [place] 370 [facility] 2019-03-26 2019-03-26 Office FILIBERTO Nevarez 1.2.840.114 [id number] Univers 08:56:34 10:54:32 Visit [facility] 350.1.13.10 it y of [place]2.[place] [phone] [facility] [address] [place] 2019-03-26 2019-03-26 Orders Doctor JAXSON 1.2.840.114 [id number] Univers 00:00:00 00:00:00 Only Unassigned, RAY 350.1.13.10 ity of [place] [facility] 4.2.7.2.686 [place]uaquin as [phone] [facility] [address] 2019-03-17 2019-03-17 Office Peggy Fleming 1.2.840.114 [id number] Univers 10:35:48 11:13:54 Visit Y Pediatric 350.1.13.10 ity of s and [place]2.[place] [phone] [facility] [address] [facility] 2019-03-17 2019-03-17 Telephone Peggy Fleming 1.2.840.114 [id number] Univers 00:00:00 00:00:00 Y Pediatric 350.1.13.10 ity of s and [place]2.[place] [id number] [facility] [address] [facility] 2019-03-14 2019-03-14 Urgent Grow, Magalie Juarez 1.2.840 .114 [id number] Univers 18:09:17 20:22:48 Care Unknown, Attending Pediatric 350.1.13. 10 ity of [place]2.[place] [id number] [facility] [address] [facility] 2018-09-20 2018-09-20 Emergency [facility] [id number] Memoria 09:45:00 14:33:00 shasha [place] 20 l [facility] 2018-09-20 2018-09-20 Emergency nullFlavo [facility] [id number] Memoria 09:45:00 14:33:00 r Derek 20 l [facility] 2018-09-20 2018-09-[address] [id number] 03:45:00 08:33:00 Jaxson Danielle 20 2017-10-31 2017-10-31 Bedded nullFlavo [facility] [id number] Memoria 10:53:00 14:44:00 Outpatient r Derek 18 [facility] 2017-10-31 2017-10-31 Bedded nullFlavo [facility] [id number] Memoria 10:53:00 14:44:00 Outpatient r eDrek 18 [facility] 2017-10-31 2017-10-31 Outpatient DALJIT Myrick SE [id number] 05:53:00 09:44:00 Lay Randhawa 18 2017-10-05 2017-10-05 Emergency nullFlavo [facility] [id number] Memoria 05:31:00 08:42:00 r Derek 19 [facility] 2017-10-05 2017-10-05 Emergency nullFlavo [facility] [id number] Memoria 05:31:00 08:42:00 r Derek 19 [facility] 2017-10-04 2017-10-05 Outpatient Miguel Ángel [address] [id number] 23:31:00 02:42:00 Pedro Luis Lauren De Anda 2017-06-13 2017-06-13 Emergency nullFlavo [facility] [id number] Memoria 19:46:00 21:57:00 shasha Reed 17 l [facility] 2017-06-13 2017-06-13 Emergency nullFlavo [facility] [id number] Memoria 19:46:00 21:57:00 r Derek 17 l [facility] 2017-06-13 2017-06-[address] [id number] 13:46:00 15:57:00 Johnny Torres 2016-11-15 2016-11-15 Emergency nullFlavo [facility] [id number] Memoria 07:39:00 09:48:00 r Derek Cisse l [facility] 2016-11-15 2016-11-15 Emergency nullFlavo [facility] [id number] Memoria 07:39:00 09:48:00 r Derek 16 [facility] 2016-11-15 2016-11-15 Outpatient Gardner, MHPL MHPL [id number] 02:39:00 04:48:00 Radha Cisse 2016-10-23 2016-10-23 Emergency nullFlavo [facility] [id number] Memoria 04:32:00 07:13:00 r Derek 15 [facility] 2016-10-23 2016-10-23 Emergency nullFlavo [facility] [id number] Memoria 04:32:00 07:13:00 r Derek 15 [facility] 2016-10-22 2016-10-23 Outpatient Krysten, MHPL MHPL [id number] 23:32:00 02:13:00 Obi Leslie 2016-10-15 2016-10-15 Emergency nullFlavo [facility] [id number] Memoria 02:42:00 08:45:00 shasha Derek Prince [facility] 2016-10-15 2016-10-15 Emergency nullFlavo [facility] [id number] Memoria 02:42:00 08:45:00 shasha Derek [facility] 2016-10-14 2016-10-15 Outpatient Krysten, MHPL MHPL [id number] 21:42:00 03:45:00 Obi Morrison Comins 2016-01-29 2016-01-30 Outpt Diag nullFlavo [facility] [id number] Memoria 13:10:00 04:59:00 Services r Outpatient 09 [facility] 2016-01-29 2016-01-30 Outpt Diag nullFlavo [facility] [id number] Memoria 13:10:00 04:59:00 Services r Outpatient 09 [facility] 2016-01-29 2016-01-29 Outpatient Friday, MHOIP MHOIP [id number] 08:10:00 23:59:00 Madeleine Palmer 2015-06-24 2015-06-26 OBS nullFlavo [facility] [id number] Memoria 17:51:00 16:30:00 Observatio shasha Reed [address] [facility] 2015-06-24 2015-06-26 OBS nullFlavo [facility] [id number] Memoria 17:51:00 16:30:00 Observatio shasha Reed [address] [facility] 2015-06-24 2015-06-26 Outpatient Misael, MHSE MHSE [id number] 11:51:00 10:30:00 Daly 13 2015-06-19 2015-06-20 Inpatient nullFlavo [facility] [id number] Memoria 15:35:00 22:28:00 r [place] 12 [facility] 2015-06-19 2015-06-20 Inpatient nullFlavo [facility] [id number] Memoria 15:35:00 22:28:00 r [place] 12 [facility] 2015-06-19 2015-06-20 Outpatient Alejandro, MHSE MHSE [id number] 09:35:00 16:28:00 Dung 12 2014-08-27 2014-08-27 EC nullFlavo [facility] [id number] Memoria 06:48:00 09:14:[address] 2014-08-27 2014-08-27 EC nullFlavo [facility] [id number] Memoria 06:48:00 09:14:00 Emergency r [address] 2014-08-27 2014-08-27 Outpatient Akuhumberto, 2.16.840. 2.16.840.1. [id number] 00:48:00 03:14:00 Laury 1.337191. [id number] 11 Arpita 3.615.0.1 5.0.101 Nanda 2014-08-17 2014-08-18 Outpt Diag nullFlavo [facility] [id number] Memoria 16:40:00 05:59:00 Services r Outpatient 08 l Imaging [facility] 2014-08-17 2014-08-18 Outpt Diag nullFlavo [facility] [id number] Memoria 16:40:00 05:59:00 Services r Outpatient 08 l Imaging [facility] 2014-08-17 2014-08-17 Outpatient Mushtaq, 2.16.840. 2.16.840.1. [id number] 10:40:00 23:59:00 Fernando 1.020168. [id number] 08 Camilla 3.615.0.1 5.0.386 79 3165-09-05 2014-04-08 EC nullFlavo [facility] [id number] Memoria 02:28:00 07:55:00 Emergency r [place] 10 [facility] 2014-04-08 2014-04-08 EC nullFlavo [facility] [id number] Memoria 02:28:00 07:55:00 Emergency r [place] 10 [facility] 2014-04-07 2014-04-08 Outpatient Gemini, 2.16.840. 2.16.840.1 . [id number] 21:28:00 02:55:00 Jaxson Danielle 1.994225. [id number] 10 3.615.0.1 5.0.019 01 9039-07-23 2014-02-24 Outpt Diag nullFlavo [facility] [id number] Memoria 14:49:00 04:59:00 Services r Outpatient 07 l Imaging [facility] 2014-02-23 2014-02-24 Outpt Diag nullFlavo [facility] [id number] Memoria 14:49:00 04:59:00 Services r Outpatient 07 l Imaging [facility] 2014-02-23 2014-02-23 Outpatient Mushtaq, 2.16.840. 2.16.840.1. [id number] 09:49:00 23:59:00 Fernando [id number]. [id number] 07 Camilla 3.615.0.1 5.0.132 73 3296-04-16 2013-11-18 Outpt Diag nullFlavo [facility] [id number] Memoria 15:03:00 04:59:00 Services r Outpatient 06 l Imaging [facility] 2013-11-17 2013-11-18 Outpt Diag nullFlavo [facility] [id number] Memoria 15:03:00 04:59:00 Services r Outpatient 06 l Imaging [facility] 2013-11-17 2013-11-17 Outpatient Mushtaq, 2.16.840. 2.16.840.1. [id number] 10:03:00 23:59:00 Fernando 1.855379. [id number] 06 Camilla 3.615.0.1 5.0.334 65 0370-02-28 2013-10-02 Outpt Diag nullFlavo [facility] [id number] 191_3 Memoria 16:29:00 05:59:00 Services r Outpatient [id number] l Imaging 5 [facility] 2013-10-01 2013-10-02 Outpt Diag nullFlavo [facility] [id number] 191_3 Memoria 16:29:00 05:59:00 Services r Outpatient [id number] l Imaging 5 [facility] 2013-10-01 2013-10-01 Outpatient Mushtaq, 2.16.840. 2.16.840.1. [id number] 10:29:00 23:59:00 Fernando 1.709272. 252105.3.61 Camilla 3.615.0.1 5.0.021 70 8105-11-13 2013-06-16 OD MHIE IE [id number] Memoria 09:05:00 23:59:00 04 [facility] 2013-06-16 2013-06-16 OD JAMIRIE IE [id number] Memoria 09:05:00 23:59:00 04 [facility] 2013-06-16 2013-06-16 Outpatient 2.16.840. [id number] [facility] 09:05:00 23:59:00 [id number] Outpati [id number] 5.0.100 ent 00 [facility] [place] 2013-02-24 2013-02-24 OD [facility] JAMIRIE [id number] [facility] 10:22:00 23:59:00 02 [facility] 2013-02-24 2013-02-24 OD MHIE IE [id number] [facility] 10:22:00 23:59:00 02 [facility] 2013-01-12 2013-01-15 OU nullFlavo [facility] [id number] [facility] 10:34:00 15:00:[address] 2013-01-12 2013-01-15 OU nullFlavo [place] [id number] [facility] 10:34:00 15:00:00 r Medical [address] [place] [address] 2012-08-20 2012-08-20 Emergency nullFlavo [id number] [facility] 12:27:00 13:51:00 r [facility] [address] [place] [address] 2012-08-20 2012-08-20 Emergency [place]Flavo [place] [id number] [facility] 12:27:00 13:51:[address] Results Test Description Test Time Test Comments Results Result Comments Source RADRPT 2022-08-03 23:00:48 Test Item Value Reference Range Interpretation Comme nts RADRPT (test code = RADRPT) PROCEDURE INFORMATION: Exam: MR Head Wi thout Contrast Exam date and time: 08/03/2022 2:30 PM Age: 61 years old Clinical indication: Syncope and collapse; Additional info: /r55 syncope and collapse TECHNIQUE: Imaging protocol: Magnetic resonance imaging of the head without contrast. COMPARISON: SPINE CERVICAL WO CONTRAST CT 06/13/2017 2:48 PM FINDINGS: Brain: There is no acute cortical infarct, parenchymal hemorrhage or an intra-axial mass. Sellar and parasellar structures are normal. There is no cerebellar tonsillar ectopia. There is normal flow in the 4th segments of both vertebral arteries, the basilar artery and intracranial carotid arteries. The cochlear, vestibule and 7th and 8th nerve fascicles are normal.Cerebral ventricles: Normal. No ventriculomegaly. Bones/joints: Unremarkable. Paranasal sinuses: Normal as visualized. No acute sinusitis. Mastoid air cells: Normal as visualized. No mastoid effusion. Orbital cavities: Unremarkable. Soft tissues: Unremarkable. IMPRESSION: Normal exam.Praveen De Souza MD On 08/03/2022 16:59:55; [id number] [facility] CenterGuuivsbUKPDMZ6677-09-94 23:00:48 Test Item Value Reference Range Interpretation Comments RADRPT (test code = PROCEDURE INFORMATION: RADRPT) Exam: MR Head Without Contrast Exam date and time: 08/03/2022 2:30 PM Age: 61 years old Clinical indication: Syncope and collapse; Additional info: /r55 syncope and collapse TECHNIQUE: Imaging protocol: Magnetic resonance imaging of the head without contrast. COMPARISON: SPINE CERVICAL WO CONTRAST CT 06/13/2017 2:48 PM FINDINGS: Brain: There is no acute cortical infarct, parenchymal hemorrhage or an intra-axial mass. Sellar and parasellar structures are normal. There is no cerebellar tonsillar ectopia. There is normal flow in the 4th segments of both vertebral arteries, the basilar artery and intracranial carotid arteries. The cochlear, vestibule and 7th and 8th nerve fascicles are normal.Cerebral ventricles: Normal. No ventriculomegaly. Bones/joints: Unremarkable. Paranasal sinuses: Normal as visualized. No acute sinusitis. Mastoid air cells: Normal as visualized. No mastoid effusion. Orbital cavities: Unremarkable. Soft tissues: Unremarkable. IMPRESSION: Normal exam.Praveen De Souza MD On 08/03/2022 16:59:55; [id number] [facility]VmfpwquUTFHGR4452-36-79 23:00:48 Test Item Value Reference Range Interpretation Comments RADRPT (test code = PROCEDURE INFORMATION: RADRPT) Exam: MR Head Without Contrast Exam date and time: 08/03/2022 2:30 PM Age: 61 years old Clinical indication: Syncope and collapse; Additional info: /r55 syncope and collapse TECHNIQUE: Imaging protocol: Magnetic resonance imaging of the head without contrast. COMPARISON: SPINE CERVICAL WO CONTRAST CT 06/13/2017 2:48 PM FINDINGS: Brain: There is no acute cortical infarct, parenchymal hemorrhage or an intra-axial mass. Sellar and parasellar structures are normal. There is no cerebellar tonsillar ectopia. There is normal flow in the 4th segments of both vertebral arteries, the basilar artery and intracranial carotid arteries. The cochlear, vestibule and 7th and 8th nerve fascicles are normal.Cerebral ventricles: Normal. No ventriculomegaly. Bones/joints: Unremarkable. Paranasal sinuses: Normal as visualized. No acute sinusitis. Mastoid air cells: Normal as visualized. No mastoid effusion. Orbital cavities: Unremarkable. Soft tissues: Unremarkable. IMPRESSION: Normal exam.Praveen De Souza MD On 08/03/2022 16:59:55; [id number] [facility] HospitalIzhlivaVXMNLF9487-68-11 23:00:48 Test Item Value Reference Range Interpretation Comments RADRPT (test code = PROCEDURE INFORMATION: RADRPT) Exam: MR Head Without Contrast Exam date and time: 08/03/2022 2:30 PM Age: 61 years old Clinical indication: Syncope and collapse; Additional info: /r55 syncope and collapse TECHNIQUE: Imaging protocol: Magnetic resonance imaging of the head without contrast. COMPARISON: SPINE CERVICAL WO CONTRAST CT 06/13/2017 2:48 PM FINDINGS: Brain: There is no acute cortical infarct, parenchymal hemorrhage or an intra-axial mass. Sellar and parasellar structures are normal. There is no cerebellar tonsillar ectopia. There is normal flow in the 4th segments of both vertebral arteries, the basilar artery and intracranial carotid arteries. The cochlear, vestibule and 7th and 8th nerve fascicles are normal.Cerebral ventricles: Normal. No ventriculomegaly. Bones/joints: Unremarkable. Paranasal sinuses: Normal as visualized. No acute sinusitis. Mastoid air cells: Normal as visualized. No mastoid effusion. Orbital cavities: Unremarkable. Soft tissues: Unremarkable. IMPRESSION: Normal exam.Praveen De Souza MD On 08/03/2022 16:59:55; LIZANDRO-[id number] [facility] CenterQqsjqpzAZFPZL9618-58-77 23:00:48 Test Item Value Reference Range Interpretation Comments RADRPT (test code = PROCEDURE INFORMATION: RADRPT) Exam: MR Head Without Contrast Exam date and time: 08/03/2022 2:30 PM Age: 61 years old Clinical indication: Syncope and collapse; Additional info: /r55 syncope and collapse TECHNIQUE: Imaging protocol: Magnetic resonance imaging of the head without contrast. COMPARISON: SPINE CERVICAL WO CONTRAST CT 06/13/2017 2:48 PM FINDINGS: Brain: There is no acute cortical infarct, parenchymal hemorrhage or an intra-axial mass. Sellar and parasellar structures are normal. There is no cerebellar tonsillar ectopia. There is normal flow in the 4th segments of both vertebral arteries, the basilar artery and intracranial carotid arteries. The cochlear, vestibule and 7th and 8th nerve fascicles are normal.Cerebral ventricles: Normal. No ventriculomegaly. Bones/joints: Unremarkable. Paranasal sinuses: Normal as visualized. No acute sinusitis. Mastoid air cells: Normal as visualized. No mastoid effusion. Orbital cavities: Unremarkable. Soft tissues: Unremarkable. IMPRESSION: Normal exam.Praveen De Souza MD On 08/03/2022 16:59:55; [id number] [facility] CenterAjwefgzBCPFIT2652-01-69 23:00:48 Test Item Value Reference Range Interpretation Comments RADRPT (test code = PROCEDURE INFORMATION: RADRPT) Exam: MR Head Without Contrast Exam date and time: 08/03/2022 2:30 PM Age: 61 years old Clinical indication: Syncope and collapse; Additional info: /r55 syncope and collapse TECHNIQUE: Imaging protocol: Magnetic resonance imaging of the head without contrast. COMPARISON: SPINE CERVICAL WO CONTRAST CT 06/13/2017 2:48 PM FINDINGS: Brain: There is no acute cortical infarct, parenchymal hemorrhage or an intra-axial mass. Sellar and parasellar structures are normal. There is no cerebellar tonsillar ectopia. There is normal flow in the 4th segments of both vertebral arteries, the basilar artery and intracranial carotid arteries. The cochlear, vestibule and 7th and 8th nerve fascicles are normal.Cerebral ventricles: Normal. No ventriculomegaly. Bones/joints: Unremarkable. Paranasal sinuses: Normal as visualized. No acute sinusitis. Mastoid air cells: Normal as visualized. No mastoid effusion. Orbital cavities: Unremarkable. Soft tissues: Unremarkable. IMPRESSION: Normal exam.Praveen De Souza MD On 08/03/2022 16:59:55; [id number] [facility]QqcepfxLTGDXE1924-04-04 23:00:48 Test Item Value Reference Range Interpretation Comments RADRPT (test code = PROCEDURE INFORMATION: RADRPT) Exam: MR Head Without Contrast Exam date and time: 08/03/2022 2:30 PM Age: 61 years old Clinical indication: Syncope and collapse; Additional info: /r55 syncope and collapse TECHNIQUE: Imaging protocol: Magnetic resonance imaging of the head without contrast. COMPARISON: SPINE CERVICAL WO CONTRAST CT 06/13/2017 2:48 PM FINDINGS: Brain: There is no acute cortical infarct, parenchymal hemorrhage or an intra-axial mass. Sellar and parasellar structures are normal. There is no cerebellar tonsillar ectopia. There is normal flow in the 4th segments of both vertebral arteries, the basilar artery and intracranial carotid arteries. The cochlear, vestibule and 7th and 8th nerve fascicles are normal.Cerebral ventricles: Normal. No ventriculomegaly. Bones/joints: Unremarkable. Paranasal sinuses: Normal as visualized. No acute sinusitis. Mastoid air cells: Normal as visualized. No mastoid effusion. Orbital cavities: Unremarkable. Soft tissues: Unremarkable. IMPRESSION: Normal exam.Praveen De Souza MD On 08/03/2022 16:59:55; [id number] [facility] [id number] 11:45:24 Test Item Value Reference Interpretation Comments Range TROPONIN I (test See_Comment [Automated code = 3030679613) message] The system which generated this result transmitted reference range : <=0.034. The reference range was not used to interpret this result as normal/abnormal . TALON (test code = Reference (Normal) TALON) Range (defined by the 99th percentile reference limit): <= 0.034 ng/mL Note: Cardiac troponin begins to rise 3-4 hours after the onset of ischemia. Repeat in 4-6 hours if the sample was drawn within 3-4 hours of the onset of the symptom and found normal. Diagnosis of myocardial injury is made with acute changes in cTn concentrations with at least one serial sample above the 99th percentile upper reference limit (URL), taken together with the patient's clinical presentation. Biotin has been reported to cause a negative bias, interpret results relative to patient's use of biotin. Lab Interpretation Normal (test code = 92866-7) [facility] HospitalN-[facility]AL YAV-[id number] 11:41:43 Test Item Value Reference Range Interpretation Comments NT-proBNP (test code 228 pg/mL See_Comment H [Autom ated = 5342830784) message] The system which generated this result transmitted reference range : <=125. The reference range was not used to interpret this result as normal/abnormal . TALON (test code = TALON) Biotin has been reported to cause a negative bias, interpret results relative to patient's use of biotin. Lab Interpretation Abnormal (test code = 43119-0) [facility] HospitalMAGNESIUM2022-10-13 11:35:44 Test Item Value Reference Range Interpretation Comments MAGNESIUM (test code = 6325003121) 1.9 mg/dL 1.7-2.4 Lab Interpretation (test code = Normal 31366-4) [facility] HospitalBASI METABOLIC PANEL (NA, K, CL, CO2, GLUCOSE, BUN, CREATININE, CA)2022-05-16 11:35:23 Test Item Value Reference Range Interpretation Comments NA (test code = 136 mmol/L 135-145 6242573489) K (test code = 3.6 mmol/L 3.5-5 1239110182) CL (test code = 106 mmol/L 98-108 0802459128) CO2 TOTAL (test code = 22 mmol/L 23-31 L 8356613668) AGAP (test code = 2-16 2526058441) BUN (test code = 11 mg/dL 7-23 9600114988) GLUCOSE (test code = 101 mg/dL 70-110 6418566002) CREATININE (test code = 0.51 mg/dL 0.5-1.04 1765648267) CALCIUM (test code = 7.8 mg/dL 8.6-10.6 L 7048040568) eGFR (test code = mL/min/1.73m2 1127393613) TALON (test code = TALON) Association of Glomerular Filtration Rate (GFR) and Staging of Kidney Disease* + --+ --+ ------+| GFR (mL/min/1.73 m2) ?| With Kidney Damage ?| ?Without Kidney Damage+ --------+ --------+ +| ?>90 ?| ?Stage one ?| ? Normal ?+ ---+ ---+ -------+| ?60-89 ?| ?Stage two ?| ? Decreased GFR ? + --+ --+ ------+| ?30-59 ?| ?Stage three ?| ? Stage three ? + --+ --+ ------+| ?15-29 ?| ?Stage four ? | ? Stage four ?+ ---+ ---+ -------+| ?<15 (or dialysis) ? ?| ?Stage five ? | ? Stage five ?+ ---+ ---+ -------+ *Each stage assumes the associated GFR level has been in effect for at least three months. ?Stages 1 to 5, with or without kidney disease, indicate chronic kidney disease. Notes: Determination of stages one and two (with eGFR >59mL/min/1.73 m2) requires estimation of kidney damage for at least three months as defined by structural or functional abnormalities of the kidney, manifested by either:Pathological abnormalities or Markers of kidney damage (including abnormalities in the composition of the blood or urine or abnormalities in imaging tests). Lab Interpretation Abnormal (test code = 42271-7) [facility] HospitalHEPATIC FUNCTION PANEL (93215) (ALB,T.PRO,BILI T,BU/BC,ALT,AST,ALK PHOS)2022-05-16 11:35:03 Test Item Value Reference Range Interpretation Comments TOTAL BILI (test code = 3733650587) 0.2 mg/dL 0.1-1.1 BILI UNCON (test code = 6069756780) 0.2 mg/dL 0.1-1.1 BILI CONJ (test code = 8754890521) 0.0 mg/dL 0-0.3 T PROTEIN (test code = 5965257355) 6.9 g/dL 6.3-8.2 ALBUMIN (test code = 0252171243) 3.6 g/dL 3.5-5 ALK PHOS (test code = 9519300699) 66 U/L 34-122 ALTv (test code = 1742-6) 32 U/L 5-35 AST(SGOT) (test code = 9845703035) 39 U/L 13-40 Lab Interpretation (test code = Normal 71524-8) [facility] HospitalPHOSPHORUS2022-10-13 11:35:03 Test Item Value Reference Range Interpretation Comments PHOSPHORUS (test code = 8719422946) 2.3 mg/dL 2.5-5 L Lab Interpretation (test code = Abnormal 60177-8) [facility] WITH [id number] 11:28:42 Test Item Value Reference Range Interpretation Comments WBC (test code = See_Comment [Automated message] 3490-2) The system Drivr generated this result transmitted ref erence range: 4.30 - 1 1.10 10*3/?L. The re ference range was not u sed to interpret this result as normal/abnor mal. RBC (test code = See_Comment [Automated message] 559-8) The system Drivr generated this result transmitted ref erence range: 3.93 - 5 .25 10*6/?L. The re ference range was not u sed to interpret this result as normal/abnor mal. HGB (test code = 12.7 g/dL 11.6-15 718-7) HCT (test code = 37.9 % 35.7-45.2 4544-3) MCV (test code = 87.5 fL 80.6-95.5 787-2) MCH (test code = 29.3 pg 25.9-32.8 785-6) MCHC (test code = 33.5 g/dL 31.6-35.1 786-4) RDW-SD (test code 39.8 fL 39-49.9 = 48718-7) RDW-CV (test code 12.4 % 12-15.5 = 788-0) PLT (test code = See_Comment [Automated message] 777-3) The system whic h generated this result transmitted ref erence range: 166 - 35 8 10*3/?L. The re ference range was not u sed to interpret this result as normal/abnor mal. MPV (test code = 11.7 fL 9.5-12.9 66829-5) NRBC/100 WBC (test See_Comment [Automat ed message] code = 0624423160) The syste m which generated this result transmitted ref erence range: 0.0 - 10 .0 /100 WBCs. The refer ence range was not u sed to interpret this result as normal/abnor mal. NRBC x10^3 (test See_Comment [Automated message] code = 9849285990) The syste m which generated this result transmitted ref erence range: 10*3/?L. The reference range was not used to interpr et this result as normal/abnormal . GRAN MAT (NEUT) % 60.4 % (test code = 770-8) IMM GRAN % (test 0.30 % code = 3136594735) LYMPH % (test code 27.2 % = 736-9) MONO % (test code 10.5 % = 5905-5) EOS % (test code = 0.8 % 713-8) BASO % (test code 0.8 % = 706-2) GRAN MAT 3.76 10*3/uL 1.88-7.09 x10^3(ANC) (test code = 4057162621) IMM GRAN x10^3 0-0.06 (test code = 5731057929) LYMPH x10^3 (test 1.69 10*3/uL 1.32-3.29 code = 731-0) MONO x10^3 (test 0.65 10*3/uL 0.33-0.92 code = 742-7) EOS x10^3 (test 0.05 10*3/uL 0.03-0.39 code = 711-2) BASO x10^3 (test 0.05 10*3/uL 0.01-0.07 code = 704-7) [facility] HospitalLANETTE [id number] 19:04:59 Test Item Value Reference Interpretation Comments Range TROPONIN I (test 0.008 ng/mL See_Comment [Automated code = 5877820877) message] The system which generated this result transmitted reference range : <=0.034. The reference range was not used to interpret this result as normal/abnormal . TALON (test code = Reference (Normal) TALON) Range (defined by the 99th percentile reference limit): <= 0.034 ng/mL Note: Cardiac troponin begins to rise 3-4 hours after the onset of ischemia. Repeat in 4-6 hours if the sample was drawn within 3-4 hours of the onset of the symptom and found normal. Diagnosis of myocardial injury is made with acute changes in cTn concentrations with at least one serial sample above the 99th percentile upper reference limit (URL), taken together with the patient's clinical presentation. Biotin has been reported to cause a negative bias, interpret results relative to patient's use of biotin. Lab Interpretation Normal (test code = 52866-3) [facility] HospitalTransthoracic echo (TTE)2022-05-15 16:33:04 Test Item Value Reference Range Interpretation Comments Height (test code = in 2065233241) Weight (test code = lbs 4785948346) Systolic BP (test code = mmHg 5419585186) Diastolic BP (test code mmHg = 0539330628) Heart Rate (test code = bpm 6355071294) BSA (test code = 1.76 m2 6883655456) Ao root diam (test code 2.90 cm = 3464496342) Aortic root (test code = 2.9 cm 3590608754) Ao root annulus (test 2.9 cm code = 1377650960) LVOT diameter (test code 1.93 cm = 1780297561) LVOT area (test code = 2.90 cm2 7678786327) LVIDD (test code = 3.20 cm 4346544304) Left Ventricular End 40.8 mL Diastolic Volume by Teichholz Method (test code = 7080341) IVS (test code = 1.38 cm 4476320266) Interventricular Septum 1.38 cm Diastolic Thickness by 2D (test code = 7010422) LVPWD (test code = 1.38 cm 0217389193) PW (test code = 1.38 cm 0.6-1.5 4509600384) EF(Teich) (test code = 56.30 % 9719459508) LVIDS (test code = 2.28 cm 3648846301) Left Ventricular End 17.8 mL Systolic Volume by Teichholz Method (test code = 6845106) FS (test code = 29 % 9829304355) EF - 2D (test code = 56.30 % 11728351) LA size (test code = 2.7 cm 8571129359) MV stenosis pressure 1/2 61.5 ms time (test code = 5227877925) MV Peak E Manny (test code 79.3 cm/s = 7474962906) E wave decelartion time 0.22 s (test code = 2787682423) MV Peak A Manny (test code 105.7 cm/s = 7143849318) E/A ratio (test code = ratio 5145230872) MV Prop V (test code = 69.40 cm/s 6960436414) MV E/e' septal (test 10.1 cm/s code = 6148635287) LAV(MOD-sp4) (test code 45.60 mL = 8616667967) Tapse (test code = 1.39 cm 0606806001) LVOT stroke volume (test 61.80 cm3 code = 6513490951) LVOT peak manny (test code 108.7 cm/s = 7156600866) LVOT mn grad (test code mmHg = 3184134533) AV LVOT peak gradient mmHg (test code = 3230588284) LVOT peak VTI (test code 21.1 cm = 1159215670) LV V1 mean (test code = 72.50 cm/s 8700171357) Aortic valve mean 118.9 cm/s velocity (test code = 9106914815) Ao peak manny (test code = 173.3 cm/s 0274794054) Ao VTI (test code = 26.8 cm 6249065232) AV area by cont VTI 2.3 cm2 (test code = 0304124728) AV area peak manny (test 1.8 cm2 code = 7933475488) Ao max PG (test code = 12.00 mm[Hg] 4044688839) AV peak gradient (test mmHg code = 1987066286) AV valve area (test code 2.30 cm2 = 2494384478) AV mean gradient (test mmHg code = 7291898856) Radiology Study observation (narrative) (test code = 85314-6) TALON (test code = TALON) ?Left?Ventricle: Left ventricle size is normal. Normal wall thickness. Normal wall motion. Normal systolic function with a visually estimated EF of 60 - 65%. There is impaired relaxation. ?Right?Ventricle: Right ventricle size is normal. Normal systolic function. ?Tricuspid?Valve: Insufficient regurgant jet to estimate RVSP. ?RA pressure is 0-5 mmHg. Left VentricleLeft ventricle size is normal. Normal wall thickness. Normal wall motion. Normal systolic function with a visually estimated EF of 60 - 65%. There is impaired relaxation.Right VentricleRight ventricle size is normal. Normal systolic function.Left AtriumLeft atrium size is normal.Right AtriumRight atrium size is normal.Mitral ValveMitral valve structure is normal. Trace transvalvular regurgitation.Tricusp id ValveTricuspid valve structure is normal. Trace transvalvular regurgitation. Insufficient regurgant jet to estimate RVSP. RA pressure is 0-5 mmHg.Aortic ValveTricuspid.Pulmon ic ValveNot well visualized.Ascending AortaNormal sized aorta.PericardiumThe pericardium is normal.Study DetailsStudy quality was adequate. A complete echocardiogram was performed using 2D, color flow Doppler and spectral Doppler. [facility] HospitalSEDIMENTATION [id number] 14:04:42 Test Item Value Reference Range Interpretation Comments ESR (test code = See_Comment H [Automated message] 35638-2) The system Drivr generated this result transmitted ref erence range: 0 - 20 m m/HR. The reference r severo was not used to interpret this result as normal/abnor mal. Lab Interpretation (test Abnormal code = 15678-9) [facility] HospitalMagnesium [id number] 13:43:59 Test Item Value Reference Range Interpretation Comments MAGNESIUM (test code = 0613212274) 1.9 mg/dL 1.7-2.4 Lab Interpretation (test code = Normal 03260-5) [facility] HospitalLIPID PANEL (43685)(TOTAL CHOLESTEROL, TRIGLYCERIDES, HDL)2022-05-15 13:43:59 Test Item Value Reference Range Interpretation Comments CHOL (test code = 132 mg/dL 120-200 0095059210) HDL (test code = 33 mg/dL See_Comment L [Automated message] 0196629912) The system Drivr generated this result transmit placido reference range : >=50. The refer ence range was not u sed to interpret th is result as normal/abnormal . HDLC RATIO (test code = See_Comment [Au tomated message] 8870706793) The system Drivr generated this result transmit placido reference range : <=4.5. The refe rence range was not u sed to interpret th is result as normal/abnormal . TRIG (test code = 94 mg/dL 30-170 2321621488) LDL CHOL (test code = 80 mg/dL See_Comment [Auto mated message] 66454-0) The system Drivr generated this result transmit placido reference range : <=160. The refe rence range was not u sed to interpret th is result as normal/abnormal . VLDL (test code = 19 mg/dL 5-60 6167807619) Lab Interpretation (test Abnormal code = 44101-9) [facility] HospitalPhosphorus Ksnir5806-93-91 13:43:39 Test Item Value Reference Range Interpretation Comments PHOSPHORUS (test code = 8968607630) 3.1 mg/dL 2.5-5 Lab Interpretation (test code = Normal 64427-1) [facility] HospitalCOMP. METABOLIC PANEL (55679)2022-05-15 13:43:39 Test Item Value Reference Range Interpretation Comments NA (test code = 137 mmol/L 135-145 8514742667) K (test code = 3.6 mmol/L 3.5-5 7980299615) CL (test code = 103 mmol/L 98-108 5891974216) CO2 TOTAL (test code = 21 mmol/L 23-31 L 7759645015) AGAP (test code = 2-16 1852287733) BUN (test code = 12 mg/dL 7-23 8250897239) GLUCOSE (test code = 169 mg/dL 70-110 H 0160377859) CREATININE (test code = 0.58 mg/dL 0.5-1.04 1343381195) TOTAL BILI (test code = 0.4 mg/dL 0.1-1.5 7013447144) CALCIUM (test code = 8.5 mg/dL 8.6-10.6 L 3115661844) T PROTEIN (test code = 7.8 g/dL 6.3-8.2 3294998226) ALBUMIN (test code = 4.0 g/dL 3.5-5 9100460791) ALK PHOS (test code = 83 U/L 34-122 1423881721) ALTv (test code = 37 U/L 5-35 H 1742-6) AST(SGOT) (test code = 48 U/L 13-40 H 4946860236) eGFR (test code = mL/min/1.73m2 1637802326) TALON (test code = TALON) Association of Glomerular Filtration Rate (GFR) and Staging of Kidney Disease* + --+ --+ ------+| GFR (mL/min/1.73 m2) ?| With Kidney Damage ?| ?Without Kidney Damage+ --------+ --------+ +| ?>90 ?| ?Stage one ?| ? Normal ?+ ---+ ---+ -------+| ?60-89 ?| ?Stage two ?| ? Decreased GFR ? + --+ --+ ------+| ?30-59 ?| ?Stage three ?| ? Stage three ? + --+ --+ ------+| ?15-29 ?| ?Stage four ? | ? Stage four ?+ ---+ ---+ -------+| ?<15 (or dialysis) ? ?| ?Stage five ? | ? Stage five ?+ ---+ ---+ -------+ *Each stage assumes the associated GFR level has been in effect for at least three months. ?Stages 1 to 5, with or without kidney disease, indicate chronic kidney disease. Notes: Determination of stages one and two (with eGFR >59mL/min/1.73 m2) requires estimation of kidney damage for at least three months as defined by structural or functional abnormalities of the kidney, manifested by either:Pathological abnormalities or Markers of kidney damage (including abnormalities in the composition of the blood or urine or abnormalities in imaging tests). Lab Interpretation Abnormal (test code = 17630-9) [facility] BranchURIC [id number] 13:43:18 Test Item Value Reference Range Interpretation Comments URIC ACID (test code = 8352655823) 3.9 mg/dL 2.9-6 Lab Interpretation (test code = Normal 31779-6) [facility] HospitalCREATINE [id number] 13:42:58 Test Item Value Reference Range Interpretation Comments CK (test code = 3705418992) 76 U/L 33-194 Lab Interpretation (test code = Normal 16117-7) [facility] HospitalTHYROID STIMULATING [id number] 12:50:53 Test Item Value Reference Range Interpretation Comments TSH (test code = See_Comment [Automated message] 6849039212) The system Drivr generated this result transmitted ref erence range: 0.45 - 4 .70 mIU/L. The refe rence range was not u sed to interpret this result as normal/abnor mal. Lab Interpretation (test Normal code = 76443-7) [facility] HospitalTROPONIN [id number] 12:32:35 Test Item Value Reference Interpretation Comments Range TROPONIN I (test 0.033 ng/mL See_Comment [Automated code = [id number]) message] The system which generated this result transmitted reference range : <=0.034. The reference range was not used to interpret this result as normal/abnormal . TAOLN (test code = Reference (Normal) TALON) Range (defined by the 99th percentile reference limit): <= 0.034 ng/mL Note: Cardiac troponin begins to rise 3-4 hours after the onset of ischemia. Repeat in 4-6 hours if the sample was drawn within 3-4 hours of the onset of the symptom and found normal. Diagnosis of myocardial injury is made with acute changes in cTn concentrations with at least one serial sample above the 99th percentile upper reference limit (URL), taken together with the patient's clinical presentation. Biotin has been reported to cause a negative bias, interpret results relative to patient's use of biotin. Lab Interpretation Normal (test code = 09827-6) [facility] [id number]-[id number] 12:29:13 Test Item Value Reference Range Interpretation Comments NT-proBNP (test code 416 pg/mL See_Comment H [Autom ated = [id number]) message] The system which generated this result transmitted reference range : <=125. The reference range was not used to interpret this result as normal/abnormal . TALON (test code = TALON) Biotin has been reported to cause a negative bias, interpret results relative to patient's use of biotin. Lab Interpretation Abnormal (test code = 08877-7) [facility] with Nrlnwllofpcb5766-76-07 11:13:28 Test Item Value Reference Range Interpretation Comments WBC (test code = See_Comment [Automated 6690-2) message] The sy stem which generated this result transmitted reference range : 4.30 - 11.10 10*3/?L. The reference range was not used to interpret this result as normal/abnormal . RBC (test code = See_Comment [Automated 789-8) message] The sy stem which generated this result transmitted reference range : 3.93 - 5.25 10*6/?L. The reference range was not used to interpret this result as normal/abnormal . HGB (test code = 13.2 g/dL 11.6-15 718-7) HCT (test code = 39.4 % 35.7-45.2 4544-3) MCV (test code = 86.4 fL 80.6-95.5 787-2) MCH (test code = 28.9 pg 25.9-32.8 785-6) MCHC (test code = 33.5 g/dL 31.6-35.1 786-4) RDW-SD (test code = 39.2 fL 39-49.9 54192-8) RDW-CV (test code = 12.2 % 12-15.5 788-0) PLT (test code = See_Comment [Automated 777-3) message] The sy stem which generated this result transmitted reference range : 166 - 358 10*3/ ?L. The reference r severo was not used to interpret this result as normal/abnormal . MPV (test code = 11.7 fL 9.5-12.9 27260-5) NRBC/100 WBC (test See_Comment [Automat ed code = [id number]) message] The system which generated this result transmitted reference range : 0.0 - 10.0 /100 WBCs. The refer ence range was not u sed to interpret th is result as normal/abnormal . NRBC x10^3 (test code See_Comment [Auto mated = [id number]) message] The s ystem which generated this result transmitted reference range : 10*3/?L. The reference range was not used to interpret this result as normal/abnormal . GRAN MAT (NEUT) % 70.2 % (test code = 770-8) IMM GRAN % (test code 0.40 % = 6892300710) LYMPH % (test code = 15.8 % 736-9) MONO % (test code = 12.3 % 5905-5) EOS % (test code = 0.6 % 713-8) BASO % (test code = 0.7 % 706-2) GRAN MAT x10^3(ANC) 4.78 10*3/uL 1.88-7.09 (test code = 9749074925) IMM GRAN x10^3 (test 0.03 10*3/uL 0-0.06 code = 7570074129) LYMPH x10^3 (test code 1.08 10*3/uL 1.32-3.29 L = 731-0) MONO x10^3 (test code 0.84 10*3/uL 0.33-0.92 = 742-7) EOS x10^3 (test code = 0.04 10*3/uL 0.03-0.39 711-2) BASO x10^3 (test code 0.05 10*3/uL 0.01-0.07 = 704-7) Lab Interpretation Abnormal (test code = 75380-3) [facility] HospitalProthrombin Time / [id number] 11:05:09 Test Item Value Reference Range Interpretation Comments PROTIME PATIENT (test See_Comment [Auto mated message] code = 5964-2) The system ich generated this result transmitted ref erence range: 12.0 - 1 4.7 Seconds. The re ference range was not u sed to interpret this result as normal/abnor mal. INR (test code = 6301-6) Nor mal INR <1.1; Warfarin Therap eutic range 2.0 to 3. 0 or 2.5 to 3.5, dep ending upon the indica tions. Lab Interpretation (test Normal code = 34416-2) [facility] HospitalCOMP[facility] METABOLIC PANEL (62554)2022-05-14 22:11:47 Test Item Value Reference Range Interpretation Comments NA (test code = 139 mmol/L 135-145 8363284581) K (test code = 4.1 mmol/L 3.5-5 2291620232) CL (test code = 102 mmol/L 98-108 1081688189) CO2 TOTAL (test code = 20 mmol/L 23-31 L 1866592682) AGAP (test code = 2-16 H 3904548126) BUN (test code = 22 mg/dL 7-23 5852831121) GLUCOSE (test code = 139 mg/dL 70-110 H 8161025658) CREATININE (test code = 0.78 mg/dL 0.5-1.04 4574467952) TOTAL BILI (test code = 0.5 mg/dL 0.1-1.6 4625148374) CALCIUM (test code = 8.8 mg/dL 8.6-10.6 5044285817) T PROTEIN (test code = 8.5 g/dL 6.3-8.2 H 5726488447) ALBUMIN (test code = 4.5 g/dL 3.5-5 9781430501) ALK PHOS (test code = 83 U/L 34-122 2594504355) ALTv (test code = 32 U/L 5-35 1742-6) AST(SGOT) (test code = 30 U/L 13-40 3551917751) eGFR (test code = mL/min/1.73m2 8836068865) TALON (test code = TALON) Association of Glomerular Filtration Rate (GFR) and Staging of Kidney Disease* + --+ --+ ------+| GFR (mL/min/1.73 m2) ?| With Kidney Damage ?| ?Without Kidney Damage+ --------+ --------+ +| ?>90 ?| ?Stage one ?| ? Normal ?+ ---+ ---+ -------+| ?60-89 ?| ?Stage two ?| ? Decreased GFR ? + --+ --+ ------+| ?30-59 ?| ?Stage three ?| ? Stage three ? + --+ --+ ------+| ?15-29 ?| ?Stage four ? | ? Stage four ?+ ---+ ---+ -------+| ?<15 (or dialysis) ? ?| ?Stage five ? | ? Stage five ?+ ---+ ---+ -------+ *Each stage assumes the associated GFR level has been in effect for at least three months. ?Stages 1 to 5, with or without kidney disease, indicate chronic kidney disease. Notes: Determination of stages one and two (with eGFR >59mL/min/1.73 m2) requires estimation of kidney damage for at least three months as defined by structural or functional abnormalities of the kidney, manifested by either:Pathological abnormalities or Markers of kidney damage (including abnormalities in the composition of the blood or urine or abnormalities in imaging tests). Lab Interpretation Abnormal (test code = 25740-2) [facility] HospitalPOCT HEMOGLOBIN A1C [id number] 18:58:00 Test Item Value Reference Range Interpretation Comments POCT HBA1C (test code = 4548-4) 7.6 % 4-6 A Lab Interpretation (test code = Abnormal 52711-9) [facility] HospitalCARDIAC HHEEDCC8225-08-75 13:57:00 Test Item Value Reference Range Interpretation Comments Troponin-I (test code no gt See_Comment [Auto mated message] The = Troponin-I) system which g enerated this result transmit lpacido reference range : <=0.40. The reference r severo was not used to interpr et this result as jazzy l/abnormal. [facility]JobdohVGWLTIW4550-68-03 13:57:00 Test Item Value Reference Range Interpretation Comments Troponin-I (test code no gt See_Comment [Auto mated message] The = Troponin-I) system which g enerated this result transmit placido reference range : <=0.40. The reference r severo was not used to interpr et this result as jazzy l/abnormal. [facility] CenterJobdohJVQYPEF4011-15-34 13:57:00 Test Item Value Reference Range Interpretation Comments Troponin-I (test code no gt See_Comment [Auto mated message] The = Troponin-I) system which g enerated this result transmit placido reference range : <=0.40. The reference r severo was not used to interpr et this result as jazzy l/abnormal. [facility] CenterJobdohYUXCKBL2153-16-30 13:57:00 Test Item Value Reference Range Interpretation Comments Troponin-I (test code no gt See_Comment [Auto mated message] The = Troponin-I) system which g enerated this result transmit placido reference range : <=0.40. The reference r severo was not used to interpr et this result as jazzy l/abnormal. [facility] [id number] 13:57:00 Test Item Value Reference Range Interpretation Comments Troponin-I (test code no gt See_Comment [Auto mated message] The = Troponin-I) system which g enerated this result transmit placido reference range : <=0.40. The reference r severo was not used to interpr et this result as jazzy l/abnormal. [facility] NCMQSNH3809-65-38 13:57:00 Test Item Value Reference Range Interpretation Comments Troponin-I (test code no gt See_Comment [Auto mated message] The = Troponin-I) system which g enerated this result transmit placido reference range : <=0.40. The reference r severo was not used to interpr et this result as jazzy l/abnormal. [facility] [id number] 13:57:00 Test Item Value Reference Range Interpretation Comments Troponin-I (test code no gt See_Comment [Auto mated message] The = Troponin-I) system which g enerated this result transmit placido reference range : <=0.40. The reference r severo was not used to interpr et this result as jazzy l/abnormal. [facility] [id number] 13:57:00 Test Item Value Reference Range Interpretation Comments Troponin-I (test code no gt See_Comment [Auto mated message] The = Troponin-I) system which g enerated this result transmit placido reference range : <=0.40. The reference r severo was not used to interpr et this result as jazzy l/abnormal. [facility] DentonAmkaslrFCQUSNGFKF2845-37-58 11:12:00 Test Item Value Reference Range Interpretation Comments Monocytes # (test code 0.7 See_Comment [Aut omated message] The = Monocytes #) system which generated this result tra nsmitted reference range : <=0.8. The reference r severo was not used to int erpret this result as normal/abnormal . [facility] DentonBuqsybnMRMGKUCJLA9336-12-96 11:12:00 Test Item Value Reference Range Interpretation Comments Eosinophils # (test code 0.6 See_Comment [A utomated message] The = Eosinophils #) system whic h generated this result tra nsmitted reference range : <=0.5. The reference r severo was not used to int erpret this result as normal/abnormal . [facility] DentonSjejgzeRTUXUGHQNO3646-32-21 11:12:00 Test Item Value Reference Range Interpretation Comments Lymphocytes (test code = Lymphocytes) 27.7 20.0-40.0 [facility] DentonGqowaekYGWOKMUQNV8929-33-94 11:12:00 Test Item Value Reference Range Interpretation Comments Segs (test code = Segs) 56.3 45.0-75.0 [facility] DentonVglqqsjQCLQZSYKHO3950-25-87 11:12:00 Test Item Value Reference Range Interpretation Comments Eosinophils (test code = 6.8 See_Comment [A utomated message] The Eosinophils) system which ge nerated this result tra nsmitted reference range : <=4.0. The reference r severo was not used to int erpret this result as normal/abnormal . [facility] DentonTooaddmKTAIZQCKDH3040-38-86 11:12:00 Test Item Value Reference Range Interpretation Comments Monocytes (test code = Monocytes) 8.1 2.0-12.0 [facility] DentonGcoysfnUKDKAKTNHD5582-92-61 11:12:00 Test Item Value Reference Range Interpretation Comments Lymphocytes # (test code = Lymphocytes 2.3 1.0-5.5 #) [facility] DentonBfautdzCGJDQHGJJL1349-25-35 11:12:00 Test Item Value Reference Range Interpretation Comments Basophils (test code = 1.1 See_Comment [Aut omated message] The Basophils) system which ge nerated this result tra nsmitted reference range : <=1.0. The reference r severo was not used to int erpret this result as normal/abnormal . [facility] DentonTppgpbxPPSWBRBNFB9379-07-42 11:12:00 Test Item Value Reference Range Interpretation Comments Neutrophils # (test code = Neutrophils 4.6 1.5-8.1 #) [facility] CenterCARD[facility]AC APCELRE3320-97-10 11:12:00 Test Item Value Reference Range Interpretation Comments BNP (test code = BNP) 20 [facility] GJLZDSK3027-23-28 11:12:00 Test Item Value Reference Range Interpretation Comments Troponin-I (test code no gt See_Comment [Auto mated message] The = Troponin-I) system which g enerated this result transmit placido reference range : <=0.40. The reference r severo was not used to interpr et this result as jazzy l/abnormal. [facility]2019-02-17 11:12:00 Test Item Value Reference Range Interpretation Comments eGFR (test code = eGFR) 98 [facility]2019-02-17 11:12:00 Test Item Value Reference Range Interpretation Comments AST (test code = AST) 19 See_Comment [Auto mated message] The system which ge nerated this result transmit placido reference range : <=37. The reference range was not used to interpr et this result as jazzy l/abnormal. [facility]2019-02-17 11:12:00 Test Item Value Reference Range Interpretation Comments Bili Total (test code = Bili Total) 0.2 0.2-1.3 [place] 950139-02-17 11:12:00 Test Item Value Reference Range Interpretation Comments Alk Phos (test code = Alk Phos) 84 39-136 [facility]2019-02-17 11:12:00 Test Item Value Reference Range Interpretation Comments Creatinine Lvl (test code = Creatinine 0.70 0.50-1.40 Lvl) [facility]2019-02-17 11:12:00 Test Item Value Reference Range Interpretation Comments BUN (test code = BUN) 14 7-22 [facility]2019-02-17 11:12:00 Test Item Value Reference Range Interpretation Comments Glucose Lvl (test code = Glucose Lvl) 114 70-99 [facility]2019-02-17 11:12:00 Test Item Value Reference Range Interpretation Comments Albumin Lvl (test code = Albumin Lvl) 3.3 3.5-5.0 [facility]2019-02-17 11:12:00 Test Item Value Reference Range Interpretation Comments Total Protein (test code = Total 8.2 6.4-8.4 Protein) [facility]2019-02-17 11:12:00 Test Item Value Reference Range Interpretation Comments ALT (test code = ALT) 29 See_Comment [Auto mated message] The system which ge nerated this result transmit placido reference range : <=65. The reference range was not used to interpr et this result as jazzy l/abnormal. [place] [address]-02-17 11:12:00 Test Item Value Reference Range Interpretation Comments Sodium Lvl (test code = Sodium Lvl) 139 135-145 [facility]2019-02-17 11:12:00 Test Item Value Reference Range Interpretation Comments Chloride Lvl (test code = Chloride Lvl) 103 95-109 [facility]2019-02-17 11:12:00 Test Item Value Reference Range Interpretation Comments Potassium Lvl (test code = Potassium 3.5 3.5-5.1 Lvl) [facility]2019-02-17 11:12:00 Test Item Value Reference Range Interpretation Comments Calcium Lvl (test code = Calcium Lvl) 8.6 8.5-10.5 [facility]2019-02-17 11:12:00 Test Item Value Reference Range Interpretation Comments CO2 (test code = CO2) 26 24-32 [facility]2019-02-17 11:12:00 Test Item Value Reference Range Interpretation Comments B/C Ratio (test code = B/C Ratio) 20 1 6-25 [facility]2019-02-17 11:12:00 Test Item Value Reference Range Interpretation Comments A/G Ratio (test code = A/G Ratio) 0.7 1 0.7-1.6 [facility]2019-02-17 11:12:00 Test Item Value Reference Range Interpretation Comments Globulin (test code = Globulin) 4.9 2.7-4.2 [facility]2019-02-17 11:12:00 Test Item Value Reference Range Interpretation Comments AGAP (test code = AGAP) 13.5 10.0-20.0 [facility]MmxduaqPSRKMYJUFBFBX5432-06-76 11:12:00 Test Item Value Reference Range Interpretation Comments hCG Tot (test code = hCG Tot) 5 [facility] DentonFbkoxagRLDRNQZQUG4850-99-10 11:12:00 Test Item Value Reference Range Interpretation Comments D-Dimer (test code = D-Dimer) 0.45 [facility] DentonDvtwveeNORMTXCDKA9870-32-01 11:12:00 Test Item Value Reference Range Interpretation Comments WBC (test code = WBC) 8.2 3.7-10.4 [facility] DentonAtgbhbnCXFQGBVWGK4144-36-69 11:12:00 Test Item Value Reference Range Interpretation Comments Hgb (test code = Hgb) 14.1 12.0-16.0 [facility] DentonPkschiaQUAPJFOFML0625-92-45 11:12:00 Test Item Value Reference Range Interpretation Comments RBC (test code = RBC) 4.81 4.20-5.40 [facility] DentonUoveoqzVTUZOIDVGC7504-42-65 11:12:00 Test Item Value Reference Range Interpretation Comments Hct (test code = Hct) 40.8 36.0-48.0 [facility] DentonVngewumGEOZQEAKQW0028-44-42 11:12:00 Test Item Value Reference Range Interpretation Comments MCV (test code = MCV) 84.9 80.0-98.0 [facility] DentonFhnwsrqXHILCBEWKG9008-02-81 11:12:00 Test Item Value Reference Range Interpretation Comments MCH (test code = MCH) 29.4 pg 27.0-31.0 [facility] DentonSrmgexpDGZHSWKFAN5672-43-16 11:12:00 Test Item Value Reference Range Interpretation Comments MCHC (test code = MCHC) 34.6 32.0-36.0 [facility] DentonNpxkzfhOVJBKVZMKK6860-02-08 11:12:00 Test Item Value Reference Range Interpretation Comments RDW (test code = RDW) 12.4 11.5-14.5 [facility] DentonRnqvrbtXEHUFIQATY8903-51-32 11:12:00 Test Item Value Reference Range Interpretation Comments Platelet (test code = Platelet) 234 133-450 [facility] DentonHnyjtbmTYAFEJBPDM3277-65-35 11:12:00 Test Item Value Reference Range Interpretation Comments MPV (test code = MPV) 9.8 7.4-10.4 [facility] DentonMxpfrwaVCZWULXBGB8202-61-48 11:12:00 Test Item Value Reference Range Interpretation Comments Basophils # (test code 0.1 See_Comment [Aut omated message] The = Basophils #) system which generated this result tra nsmitted reference range : <=0.2. The reference r severo was not used to int erpret this result as normal/abnormal . [facility] DentonMqsbhksMBYSTIQVDB0550-60-96 11:12:00 Test Item Value Reference Range Interpretation Comments Monocytes # (test code 0.7 See_Comment [Aut omated message] The = Monocytes #) system which generated this result tra nsmitted reference range : <=0.8. The reference r severo was not used to int erpret this result as normal/abnormal . [facility] DentonFlekjoaCBFLLUJZVM8240-14-40 11:12:00 Test Item Value Reference Range Interpretation Comments Eosinophils # (test code 0.6 See_Comment [A utomated message] The = Eosinophils #) system whic h generated this result tra nsmitted reference range : <=0.5. The reference r severo was not used to int erpret this result as normal/abnormal . [facility] DentonNzdwuynQZWYMEKEGI0998-77-22 11:12:00 Test Item Value Reference Range Interpretation Comments Lymphocytes (test code = Lymphocytes) 27.7 20.0-40.0 [facility] DentonAjwyxvdRXQQEDAVQN4273-78-09 11:12:00 Test Item Value Reference Range Interpretation Comments Segs (test code = Segs) 56.3 45.0-75.0 [facility] DentonGsrnigiZYQPYQCRLT1872-55-68 11:12:00 Test Item Value Reference Range Interpretation Comments Eosinophils (test code = 6.8 See_Comment [A utomated message] The Eosinophils) system which ge nerated this result tra nsmitted reference range : <=4.0. The reference r severo was not used to int erpret this result as normal/abnormal . [facility] DentonEjufvvyUYYIZSQKSH2944-46-33 11:12:00 Test Item Value Reference Range Interpretation Comments Monocytes (test code = Monocytes) 8.1 2.0-12.0 [facility] DentonFveeyuaDCHOHBQBQA0519-44-56 11:12:00 Test Item Value Reference Range Interpretation Comments Lymphocytes # (test code = Lymphocytes 2.3 1.0-5.5 #) [facility] DentonTjouytkFCAKSFYBAO6823-83-30 11:12:00 Test Item Value Reference Range Interpretation Comments Basophils (test code = 1.1 See_Comment [Aut omated message] The Basophils) system which ge nerated this result tra nsmitted reference range : <=1.0. The reference r severo was not used to int erpret this result as normal/abnormal . [facility] DentonMmintefVNLCCILDZK3061-67-79 11:12:00 Test Item Value Reference Range Interpretation Comments Neutrophils # (test code = Neutrophils 4.6 1.5-8.1 #) [facility] XSNEJEA2077-03-52 11:12:00 Test Item Value Reference Range Interpretation Comments BNP (test code = BNP) 20 [facility] CenterCARAragon PharmaceuticalsAC NJPGGXB5541-84-07 11:12:00 Test Item Value Reference Range Interpretation Comments Troponin-I (test code no gt See_Comment [Auto mated message] The = Troponin-I) system which g enerated this result transmit placido reference range : <=0.40. The reference r severo was not used to interpr et this result as jazzy l/abnormal. [facility]2019-02-17 11:12:00 Test Item Value Reference Range Interpretation Comments eGFR (test code = eGFR) 98 [facility]2019-02-17 11:12:00 Test Item Value Reference Range Interpretation Comments AST (test code = AST) 19 See_Comment [Auto mated message] The system which ge nerated this result transmit placido reference range : <=37. The reference range was not used to interpr et this result as jazzy l/abnormal. [facility]2019-02-17 11:12:00 Test Item Value Reference Range Interpretation Comments Bili Total (test code = Bili Total) 0.2 0.2-1.3 [facility]2019-02-17 11:12:00 Test Item Value Reference Range Interpretation Comments Alk Phos (test code = Alk Phos) 84 39-136 [facility]2019-02-17 11:12:00 Test Item Value Reference Range Interpretation Comments Creatinine Lvl (test code = Creatinine 0.70 0.50-1.40 Lvl) [facility]2019-02-17 11:12:00 Test Item Value Reference Range Interpretation Comments BUN (test code = BUN) 14 7-22 [facility]2019-02-17 11:12:00 Test Item Value Reference Range Interpretation Comments Glucose Lvl (test code = Glucose Lvl) 114 70-99 [facility]2019-02-17 11:12:00 Test Item Value Reference Range Interpretation Comments Albumin Lvl (test code = Albumin Lvl) 3.3 3.5-5.0 [facility]2019-02-17 11:12:00 Test Item Value Reference Range Interpretation Comments Total Protein (test code = Total 8.2 6.4-8.4 Protein) [facility]2019-02-17 11:12:00 Test Item Value Reference Range Interpretation Comments ALT (test code = ALT) 29 See_Comment [Auto mated message] The system which ge nerated this result transmit placido reference range : <=65. The reference range was not used to interpr et this result as jazzy l/abnormal. [facility]2019-02-17 11:12:00 Test Item Value Reference Range Interpretation Comments Sodium Lvl (test code = Sodium Lvl) 139 135-145 [facility]2019-02-17 11:12:00 Test Item Value Reference Range Interpretation Comments Chloride Lvl (test code = Chloride Lvl) 103 95-109 [facility]2019-02-17 11:12:00 Test Item Value Reference Range Interpretation Comments Potassium Lvl (test code = Potassium 3.5 3.5-5.1 Lvl) [facility]2019-02-17 11:12:00 Test Item Value Reference Range Interpretation Comments Calcium Lvl (test code = Calcium Lvl) 8.6 8.5-10.5 [facility]2019-02-17 11:12:00 Test Item Value Reference Range Interpretation Comments CO2 (test code = CO2) 26 24-32 [facility]2019-02-17 11:12:00 Test Item Value Reference Range Interpretation Comments B/C Ratio (test code = B/C Ratio) 20 1 6-25 [facility]2019-02-17 11:12:00 Test Item Value Reference Range Interpretation Comments A/G Ratio (test code = A/G Ratio) 0.7 1 0.7-1.6 [facility]2019-02-17 11:12:00 Test Item Value Reference Range Interpretation Comments Globulin (test code = Globulin) 4.9 2.7-4.2 [facility]2019-02-17 11:12:00 Test Item Value Reference Range Interpretation Comments AGAP (test code = AGAP) 13.5 10.0-20.0 [facility]YxusuurBLHITNGXMMZWH7368-13-62 11:12:00 Test Item Value Reference Range Interpretation Comments hCG Tot (test code = hCG Tot) 5 [facility]entonUptzxuzLSNFLDJQXQ8150-32-80 11:12:00 Test Item Value Reference Range Interpretation Comments D-Dimer (test code = D-Dimer) 0.45 [facility] DentonMnvvumnUSVSHCYMAZ9036-17-80 11:12:00 Test Item Value Reference Range Interpretation Comments WBC (test code = WBC) 8.2 3.7-10.4 [facility] DentonGmwntqyLBJZFZEJHN7089-50-83 11:12:00 Test Item Value Reference Range Interpretation Comments Hgb (test code = Hgb) 14.1 12.0-16.0 [facility] DentonZufaiubIVPAXOJYJX9600-77-30 11:12:00 Test Item Value Reference Range Interpretation Comments RBC (test code = RBC) 4.81 4.20-5.40 [facility] DentonNuyyuzvXIWQMYUJNQ4612-46-90 11:12:00 Test Item Value Reference Range Interpretation Comments Hct (test code = Hct) 40.8 36.0-48.0 [facility] DentonMbqkdedWIYNJUNKHW7417-82-67 11:12:00 Test Item Value Reference Range Interpretation Comments MCV (test code = MCV) 84.9 80.0-98.0 [facility] DentonGqwnqvmPTCLLQJACW1835-82-58 11:12:00 Test Item Value Reference Range Interpretation Comments MCH (test code = MCH) 29.4 pg 27.0-31.0 [facility] DentonQgmidbrEEWLIDVNHU0245-33-91 11:12:00 Test Item Value Reference Range Interpretation Comments MCHC (test code = MCHC) 34.6 32.0-36.0 [facility] DentonTbnpqkwZEPZVOWFGK4541-00-14 11:12:00 Test Item Value Reference Range Interpretation Comments RDW (test code = RDW) 12.4 11.5-14.5 [facility] DentonRitbylfCZVARAWDLP0138-76-22 11:12:00 Test Item Value Reference Range Interpretation Comments Platelet (test code = Platelet) 234 133-450 [facility] DentonJrzwzirEFPHZDRHPZ9165-19-49 11:12:00 Test Item Value Reference Range Interpretation Comments MPV (test code = MPV) 9.8 7.4-10.4 [facility] DentonEtgqxqbOMCUKVCAZC6752-88-97 11:12:00 Test Item Value Reference Range Interpretation Comments Basophils # (test code 0.1 See_Comment [Aut omated message] The = Basophils #) system which generated this result tra nsmitted reference range : <=0.2. The reference r severo was not used to int erpret this result as normal/abnormal . [facility] DentonWnnkijmUCLJWCIUUO8486-99-71 11:12:00 Test Item Value Reference Range Interpretation Comments Monocytes # (test code 0.7 See_Comment [Aut omated message] The = Monocytes #) system which generated this result tra nsmitted reference range : <=0.8. The reference r severo was not used to int erpret this result as normal/abnormal . [facility] DentonKlhacdaPYHDECVHSC2339-70-85 11:12:00 Test Item Value Reference Range Interpretation Comments Eosinophils # (test code 0.6 See_Comment [A utomated message] The = Eosinophils #) system whic h generated this result tra nsmitted reference range : <=0.5. The reference r severo was not used to int erpret this result as normal/abnormal . [facility] DentonQsawtgeHHRNQGELVT9669-89-52 11:12:00 Test Item Value Reference Range Interpretation Comments Lymphocytes (test code = Lymphocytes) 27.7 20.0-40.0 [facility] DentonEyuovmhZCXVXVZRTM1322-64-24 11:12:00 Test Item Value Reference Range Interpretation Comments Segs (test code = Segs) 56.3 45.0-75.0 [facility] DentonItcphpvMWRAUFZZVS9760-41-09 11:12:00 Test Item Value Reference Range Interpretation Comments Eosinophils (test code = 6.8 See_Comment [A utomated message] The Eosinophils) system which ge nerated this result tra nsmitted reference range : <=4.0. The reference r severo was not used to int erpret this result as normal/abnormal . [facility] DentonWzgfyduPPQAPHXPXV0464-94-83 11:12:00 Test Item Value Reference Range Interpretation Comments Monocytes (test code = Monocytes) 8.1 2.0-12.0 [facility] DentonCjrllqjDGXGRSSLIB3169-17-15 11:12:00 Test Item Value Reference Range Interpretation Comments Lymphocytes # (test code = Lymphocytes 2.3 1.0-5.5 #) [facility] DentonBvixapvXOONKJFQTL2528-08-72 11:12:00 Test Item Value Reference Range Interpretation Comments Basophils (test code = 1.1 See_Comment [Aut omated message] The Basophils) system which ge nerated this result tra nsmitted reference range : <=1.0. The reference r severo was not used to int erpret this result as normal/abnormal . [facility] DentonKnvdpxdCBBTXWYRIB4096-01-30 11:12:00 Test Item Value Reference Range Interpretation Comments Neutrophils # (test code = Neutrophils 4.6 1.5-8.1 #) [facility] [id number] 11:12:00 Test Item Value Reference Range Interpretation Comments BNP (test code = BNP) 20 [facility] EGDWZEL6379-12-89 11:12:00 Test Item Value Reference Range Interpretation Comments Troponin-I (test code no gt See_Comment [Auto mated message] The = Troponin-I) system which g enerated this result transmit placido reference range : <=0.40. The reference r severo was not used to interpr et this result as jazzy l/abnormal. [facility]live[facility] IKKMG8256-91-71 11:12:00 Test Item Value Reference Range Interpretation Comments eGFR (test code = eGFR) 98 [facility]2019-02-17 11:12:00 Test Item Value Reference Range Interpretation Comments AST (test code = AST) 19 See_Comment [Auto mated message] The system which ge nerated this result transmit placido reference range : <=37. The reference range was not used to interpr et this result as jazzy l/abnormal. [facility]live[facility] URQNG0276-33-94 11:12:00 Test Item Value Reference Range Interpretation Comments Bili Total (test code = Bili Total) 0.2 0.2-1.3 [facility]2019-02-17 11:12:00 Test Item Value Reference Range Interpretation Comments Alk Phos (test code = Alk Phos) 84 39-136 [facility]2019-02-17 11:12:00 Test Item Value Reference Range Interpretation Comments Creatinine Lvl (test code = Creatinine 0.70 0.50-1.40 Lvl) [facility]2019-02-17 11:12:00 Test Item Value Reference Range Interpretation Comments BUN (test code = BUN) 14 7-22 [facility] CenterShenzhen Globalegrow E-CommerceUNC HEALTH PARDEEJKKSU6206-83-75 11:12:00 Test Item Value Reference Range Interpretation Comments Glucose Lvl (test code = Glucose Lvl) 114 70-99 [facility]2019-02-17 11:12:00 Test Item Value Reference Range Interpretation Comments Albumin Lvl (test code = Albumin Lvl) 3.3 3.5-5.0 [facility]2019-02-17 11:12:00 Test Item Value Reference Range Interpretation Comments Total Protein (test code = Total 8.2 6.4-8.4 Protein) [facility]2019-02-17 11:12:00 Test Item Value Reference Range Interpretation Comments ALT (test code = ALT) 29 See_Comment [Auto mated message] The system which ge nerated this result transmit placido reference range : <=65. The reference range was not used to interpr et this result as jazzy l/abnormal. [facility]2019-02-17 11:12:00 Test Item Value Reference Range Interpretation Comments Sodium Lvl (test code = Sodium Lvl) 139 135-145 [facility]2019-02-17 11:12:00 Test Item Value Reference Range Interpretation Comments Chloride Lvl (test code = Chloride Lvl) 103 95-109 [facility]2019-02-17 11:12:00 Test Item Value Reference Range Interpretation Comments Potassium Lvl (test code = Potassium 3.5 3.5-5.1 Lvl) [facility]2019-02-17 11:12:00 Test Item Value Reference Range Interpretation Comments Calcium Lvl (test code = Calcium Lvl) 8.6 8.5-10.5 [facility]2019-02-17 11:12:00 Test Item Value Reference Range Interpretation Comments CO2 (test code = CO2) 26 24-32 [facility]2019-02-17 11:12:00 Test Item Value Reference Range Interpretation Comments B/C Ratio (test code = B/C Ratio) 20 1 6-25 [facility]2019-02-17 11:12:00 Test Item Value Reference Range Interpretation Comments A/G Ratio (test code = A/G Ratio) 0.7 1 0.7-1.6 [facility]2019-02-17 11:12:00 Test Item Value Reference Range Interpretation Comments Globulin (test code = Globulin) 4.9 2.7-4.2 [facility]2019-02-17 11:12:00 Test Item Value Reference Range Interpretation Comments AGAP (test code = AGAP) 13.5 10.0-20.0 [facility] CenterIlaexjbHCZLVXRCOBJOW5589-90-62 11:12:00 Test Item Value Reference Range Interpretation Comments hCG Tot (test code = hCG Tot) 5 [facility] CenterCgihnhoQCANVEYAKX0591-75-64 11:12:00 Test Item Value Reference Range Interpretation Comments D-Dimer (test code = D-Dimer) 0.45 [facility] DentonXyljblwPLPSWIULIB4989-92-19 11:12:00 Test Item Value Reference Range Interpretation Comments WBC (test code = WBC) 8.2 3.7-10.4 [facility] DentonZjohdseFWQMGMNZBZ3668-55-58 11:12:00 Test Item Value Reference Range Interpretation Comments Hgb (test code = Hgb) 14.1 12.0-16.0 [facility] DentonQvzicrmIEIPMNGOAJ8262-28-11 11:12:00 Test Item Value Reference Range Interpretation Comments RBC (test code = RBC) 4.81 4.20-5.40 [facility] DentonOsfdxsjZBLNKXODBG8466-33-91 11:12:00 Test Item Value Reference Range Interpretation Comments Hct (test code = Hct) 40.8 36.0-48.0 [facility] DentonSrupqhqEHGWEXMIRA2603-66-15 11:12:00 Test Item Value Reference Range Interpretation Comments MCV (test code = MCV) 84.9 80.0-98.0 [facility] DentonYwotggeRJGYSUCRIU9992-97-32 11:12:00 Test Item Value Reference Range Interpretation Comments MCH (test code = MCH) 29.4 pg 27.0-31.0 [facility] DentonOrpssktMMNYDQYFWO6421-38-11 11:12:00 Test Item Value Reference Range Interpretation Comments MCHC (test code = MCHC) 34.6 32.0-36.0 [facility] DentonQrsttjqWEVCCDFOHW7451-81-04 11:12:00 Test Item Value Reference Range Interpretation Comments RDW (test code = RDW) 12.4 11.5-14.5 [facility] DentonApxmrrmAPZVGRKSHM5925-67-54 11:12:00 Test Item Value Reference Range Interpretation Comments Platelet (test code = Platelet) 234 133-450 [facility] DentonIdhsgbxMWBMYNJJEA1883-74-23 11:12:00 Test Item Value Reference Range Interpretation Comments MPV (test code = MPV) 9.8 7.4-10.4 [facility] DentonBoqjqdjUMFGDLRAYQ5909-37-56 11:12:00 Test Item Value Reference Range Interpretation Comments Basophils # (test code 0.1 See_Comment [Aut omated message] The = Basophils #) system which generated this result tra nsmitted reference range : <=0.2. The reference r severo was not used to int erpret this result as normal/abnormal . [facility] DentonOfswhxeVRLGPQZSHF1740-46-90 11:12:00 Test Item Value Reference Range Interpretation Comments Monocytes # (test code 0.7 See_Comment [Aut omated message] The = Monocytes #) system which generated this result tra nsmitted reference range : <=0.8. The reference r severo was not used to int erpret this result as normal/abnormal . [facility] DentonHojjjboESMAALVLAW6623-05-09 11:12:00 Test Item Value Reference Range Interpretation Comments Eosinophils # (test code 0.6 See_Comment [A utomated message] The = Eosinophils #) system whic h generated this result tra nsmitted reference range : <=0.5. The reference r severo was not used to int erpret this result as normal/abnormal . [facility] DentonFcsbsmfSGQOLSKNSQ2096-58-31 11:12:00 Test Item Value Reference Range Interpretation Comments Lymphocytes (test code = Lymphocytes) 27.7 20.0-40.0 [facility] DentonFujwwgcNDITSFWIRX0283-34-64 11:12:00 Test Item Value Reference Range Interpretation Comments Segs (test code = Segs) 56.3 45.0-75.0 [facility] DentonXkqizgdKYRQEEAKSP9764-41-58 11:12:00 Test Item Value Reference Range Interpretation Comments Eosinophils (test code = 6.8 See_Comment [A utomated message] The Eosinophils) system which ge nerated this result tra nsmitted reference range : <=4.0. The reference r severo was not used to int erpret this result as normal/abnormal . [facility] DentonIromotaQVKYKASDQZ9102-34-64 11:12:00 Test Item Value Reference Range Interpretation Comments Monocytes (test code = Monocytes) 8.1 2.0-12.0 [facility] DentonSnikrbjILSRFOCSCX2572-15-36 11:12:00 Test Item Value Reference Range Interpretation Comments Lymphocytes # (test code = Lymphocytes 2.3 1.0-5.5 #) [facility] DentonRudsnhfLXELJUBRTC0468-44-23 11:12:00 Test Item Value Reference Range Interpretation Comments Basophils (test code = 1.1 See_Comment [Aut omated message] The Basophils) system which ge nerated this result tra nsmitted reference range : <=1.0. The reference r severo was not used to int erpret this result as normal/abnormal . [facility]GcgrcwwWNYNYAAETN2179-46-04 11:12:00 Test Item Value Reference Range Interpretation Comments Neutrophils # (test code = Neutrophils 4.6 1.5-8.1 #) [facility] ESFURHQ9637-65-63 11:12:00 Test Item Value Reference Range Interpretation Comments BNP (test code = BNP) 20 [facility] IHNOYED4640-77-75 11:12:00 Test Item Value Reference Range Interpretation Comments Troponin-I (test code no gt See_Comment [Auto mated message] The = Troponin-I) system which g enerated this result transmit placido reference range : <=0.40. The reference r severo was not used to interpr et this result as jazzy l/abnormal. [facility]2019-02-17 11:12:00 Test Item Value Reference Range Interpretation Comments eGFR (test code = eGFR) 98 [facility]2019-02-17 11:12:00 Test Item Value Reference Range Interpretation Comments AST (test code = AST) 19 See_Comment [Auto mated message] The system which ge nerated this result transmit placido reference range : <=37. The reference range was not used to interpr et this result as jazzy l/abnormal. [facility]2019-02-17 11:12:00 Test Item Value Reference Range Interpretation Comments Bili Total (test code = Bili Total) 0.2 0.2-1.3 [facility]2019-02-17 11:12:00 Test Item Value Reference Range Interpretation Comments Alk Phos (test code = Alk Phos) 84 39-136 [facility]2019-02-17 11:12:00 Test Item Value Reference Range Interpretation Comments Creatinine Lvl (test code = Creatinine 0.70 0.50-1.40 Lvl) [facility]2019-02-17 11:12:00 Test Item Value Reference Range Interpretation Comments BUN (test code = BUN) 14 7-22 [facility]2019-02-17 11:12:00 Test Item Value Reference Range Interpretation Comments Glucose Lvl (test code = Glucose Lvl) 114 70-99 [facility]2019-02-17 11:12:00 Test Item Value Reference Range Interpretation Comments Albumin Lvl (test code = Albumin Lvl) 3.3 3.5-5.0 [facility]2019-02-17 11:12:00 Test Item Value Reference Range Interpretation Comments Total Protein (test code = Total 8.2 6.4-8.4 Protein) [facility]2019-02-17 11:12:00 Test Item Value Reference Range Interpretation Comments ALT (test code = ALT) 29 See_Comment [Auto mated message] The system which ge nerated this result transmit placido reference range : <=65. The reference range was not used to interpr et this result as jazzy l/abnormal. [facility]2019-02-17 11:12:00 Test Item Value Reference Range Interpretation Comments Sodium Lvl (test code = Sodium Lvl) 139 135-145 [facility]2019-02-17 11:12:00 Test Item Value Reference Range Interpretation Comments Chloride Lvl (test code = Chloride Lvl) 103 95-109 [facility]2019-02-17 11:12:00 Test Item Value Reference Range Interpretation Comments Potassium Lvl (test code = Potassium 3.5 3.5-5.1 Lvl) [facility]2019-02-17 11:12:00 Test Item Value Reference Range Interpretation Comments Calcium Lvl (test code = Calcium Lvl) 8.6 8.5-10.5 [facility]2019-02-17 11:12:00 Test Item Value Reference Range Interpretation Comments CO2 (test code = CO2) 26 24-32 [facility]2019-02-17 11:12:00 Test Item Value Reference Range Interpretation Comments B/C Ratio (test code = B/C Ratio) 20 1 6-25 [facility]2019-02-17 11:12:00 Test Item Value Reference Range Interpretation Comments A/G Ratio (test code = A/G Ratio) 0.7 1 0.7-1.6 [facility]2019-02-17 11:12:00 Test Item Value Reference Range Interpretation Comments Globulin (test code = Globulin) 4.9 2.7-4.2 [facility]2019-02-17 11:12:00 Test Item Value Reference Range Interpretation Comments AGAP (test code = AGAP) 13.5 10.0-20.0 [facility] TexasWwgfbgmYCFCYMPVKHLWK6208-57-51 11:12:00 Test Item Value Reference Range Interpretation Comments hCG Tot (test code = hCG Tot) 5 [facility] DentonOiieydjJFRTYSPLKL2760-86-97 11:12:00 Test Item Value Reference Range Interpretation Comments D-Dimer (test code = D-Dimer) 0.45 [facility] DentonVitgjrsJJPHGCWPSU8042-44-15 11:12:00 Test Item Value Reference Range Interpretation Comments WBC (test code = WBC) 8.2 3.7-10.4 [facility] DentonWkcocsrMOJYUTBIUW0951-68-02 11:12:00 Test Item Value Reference Range Interpretation Comments Hgb (test code = Hgb) 14.1 12.0-16.0 [facility] DentonNkdrlddSRNCRYQAAH7185-22-66 11:12:00 Test Item Value Reference Range Interpretation Comments RBC (test code = RBC) 4.81 4.20-5.40 [facility] DentonWmmwxlrSZHSYQBHSH1787-22-79 11:12:00 Test Item Value Reference Range Interpretation Comments Hct (test code = Hct) 40.8 36.0-48.0 [facility] DentonRvnyydnPZKFZURVVV8790-82-14 11:12:00 Test Item Value Reference Range Interpretation Comments MCV (test code = MCV) 84.9 80.0-98.0 [facility] DentonBjykzumFBAOISFAOL0528-40-04 11:12:00 Test Item Value Reference Range Interpretation Comments MCH (test code = MCH) 29.4 pg 27.0-31.0 [facility] DentonPrszimjEFYCLHJYZX6270-80-71 11:12:00 Test Item Value Reference Range Interpretation Comments MCHC (test code = MCHC) 34.6 32.0-36.0 [facility] DentonQwyltxwSMHDBVYPPN7606-72-13 11:12:00 Test Item Value Reference Range Interpretation Comments RDW (test code = RDW) 12.4 11.5-14.5 [facility] DentonIoheevqAMXLPECQII1521-35-41 11:12:00 Test Item Value Reference Range Interpretation Comments Platelet (test code = Platelet) 234 133-450 [facility] DentonPjpmzgoZFPKWCWNKZ7154-49-47 11:12:00 Test Item Value Reference Range Interpretation Comments MPV (test code = MPV) 9.8 7.4-10.4 [facility] DentonZwzwzdnPENDOQRAOQ4635-16-56 11:12:00 Test Item Value Reference Range Interpretation Comments Basophils # (test code 0.1 See_Comment [Aut omated message] The = Basophils #) system which generated this result tra nsmitted reference range : <=0.2. The reference r severo was not used to int erpret this result as normal/abnormal . [facility] DentonEarcumtLAKFUZAESL9495-21-49 11:12:00 Test Item Value Reference Range Interpretation Comments Monocytes # (test code 0.7 See_Comment [Aut omated message] The = Monocytes #) system which generated this result tra nsmitted reference range : <=0.8. The reference r severo was not used to int erpret this result as normal/abnormal . [facility] DentonVqififeIDDURZCGOU5911-47-47 11:12:00 Test Item Value Reference Range Interpretation Comments Eosinophils # (test code 0.6 See_Comment [A utomated message] The = Eosinophils #) system whic h generated this result tra nsmitted reference range : <=0.5. The reference r severo was not used to int erpret this result as normal/abnormal . [facility] DentonNxnedydVTCWQKGVVV4761-82-63 11:12:00 Test Item Value Reference Range Interpretation Comments Lymphocytes (test code = Lymphocytes) 27.7 20.0-40.0 [facility] DentonVowonuhYSEEBNYQBO8485-10-68 11:12:00 Test Item Value Reference Range Interpretation Comments Segs (test code = Segs) 56.3 45.0-75.0 [facility] DentonVnpabfmOJAJBAUKCH5167-02-25 11:12:00 Test Item Value Reference Range Interpretation Comments Eosinophils (test code = 6.8 See_Comment [A utomated message] The Eosinophils) system which ge nerated this result tra nsmitted reference range : <=4.0. The reference r severo was not used to int erpret this result as normal/abnormal . [facility] DentonPzwyrfrJOMDRVNRIB1147-22-84 11:12:00 Test Item Value Reference Range Interpretation Comments Monocytes (test code = Monocytes) 8.1 2.0-12.0 [facility] DentonXxoxxkiRWIZIXEHWT9438-79-56 11:12:00 Test Item Value Reference Range Interpretation Comments Lymphocytes # (test code = Lymphocytes 2.3 1.0-5.5 #) [facility] DentonItmnaejNTBUVXMNHW5319-95-06 11:12:00 Test Item Value Reference Range Interpretation Comments Basophils (test code = 1.1 See_Comment [Aut omated message] The Basophils) system which ge nerated this result tra nsmitted reference range : <=1.0. The reference r severo was not used to int erpret this result as normal/abnormal . [facility] CenterYkbphwnMGECUDTTWU7067-43-98 11:12:00 Test Item Value Reference Range Interpretation Comments Neutrophils # (test code = Neutrophils 4.6 1.5-8.1 #) [facility] GUBSCTW6832-38-94 11:12:00 Test Item Value Reference Range Interpretation Comments BNP (test code = BNP) 20 [facility] APLNLVZ9172-10-22 11:12:00 Test Item Value Reference Range Interpretation Comments Troponin-I (test code no gt See_Comment [Auto mated message] The = Troponin-I) system which g enerated this result transmit placido reference range : <=0.40. The reference r severo was not used to interpr et this result as jazzy l/abnormal. [facility]2019-02-17 11:12:00 Test Item Value Reference Range Interpretation Comments eGFR (test code = eGFR) 98 [facility]2019-02-17 11:12:00 Test Item Value Reference Range Interpretation Comments AST (test code = AST) 19 See_Comment [Auto mated message] The system which ge nerated this result transmit placido reference range : <=37. The reference range was not used to interpr et this result as jazzy l/abnormal. [facility]2019-02-17 11:12:00 Test Item Value Reference Range Interpretation Comments Bili Total (test code = Bili Total) 0.2 0.2-1.3 [facility]2019-02-17 11:12:00 Test Item Value Reference Range Interpretation Comments Alk Phos (test code = Alk Phos) 84 39-136 [facility]2019-02-17 11:12:00 Test Item Value Reference Range Interpretation Comments Creatinine Lvl (test code = Creatinine 0.70 0.50-1.40 Lvl) [facility]2019-02-17 11:12:00 Test Item Value Reference Range Interpretation Comments BUN (test code = BUN) 14 7-22 [facility]2019-02-17 11:12:00 Test Item Value Reference Range Interpretation Comments Glucose Lvl (test code = Glucose Lvl) 114 70-99 [facility]2019-02-17 11:12:00 Test Item Value Reference Range Interpretation Comments Albumin Lvl (test code = Albumin Lvl) 3.3 3.5-5.0 [facility]2019-02-17 11:12:00 Test Item Value Reference Range Interpretation Comments Total Protein (test code = Total 8.2 6.4-8.4 Protein) [facility]2019-02-17 11:12:00 Test Item Value Reference Range Interpretation Comments ALT (test code = ALT) 29 See_Comment [Auto mated message] The system which ge nerated this result transmit placido reference range : <=65. The reference range was not used to interpr et this result as jazzy l/abnormal. [facility]2019-02-17 11:12:00 Test Item Value Reference Range Interpretation Comments Sodium Lvl (test code = Sodium Lvl) 139 135-145 [facility]2019-02-17 11:12:00 Test Item Value Reference Range Interpretation Comments Chloride Lvl (test code = Chloride Lvl) 103 95-109 [facility]2019-02-17 11:12:00 Test Item Value Reference Range Interpretation Comments Potassium Lvl (test code = Potassium 3.5 3.5-5.1 Lvl) [facility]2019-02-17 11:12:00 Test Item Value Reference Range Interpretation Comments Calcium Lvl (test code = Calcium Lvl) 8.6 8.5-10.5 [facility]2019-02-17 11:12:00 Test Item Value Reference Range Interpretation Comments CO2 (test code = CO2) 26 24-32 [facility]2019-02-17 11:12:00 Test Item Value Reference Range Interpretation Comments B/C Ratio (test code = B/C Ratio) 20 1 6-25 [facility]2019-02-17 11:12:00 Test Item Value Reference Range Interpretation Comments A/G Ratio (test code = A/G Ratio) 0.7 1 0.7-1.6 [facility]2019-02-17 11:12:00 Test Item Value Reference Range Interpretation Comments Globulin (test code = Globulin) 4.9 2.7-4.2 [place] 950139-02-17 11:12:00 Test Item Value Reference Range Interpretation Comments AGAP (test code = AGAP) 13.5 10.0-20.0 [facility]Jaj[facility]avyROJCUVIJMQFJY8105-24-76 11:12:00 Test Item Value Reference Range Interpretation Comments hCG Tot (test code = hCG Tot) 5 [facility]entonXobedsnNFFVETNZVD7810-42-60 11:12:00 Test Item Value Reference Range Interpretation Comments D-Dimer (test code = D-Dimer) 0.45 [facility]entonWtnnlqvSFBBKFCYBS4873-13-28 11:12:00 Test Item Value Reference Range Interpretation Comments WBC (test code = WBC) 8.2 3.7-10.4 [facility] DentonWmfoatkUUUOYXWDZA7277-64-49 11:12:00 Test Item Value Reference Range Interpretation Comments Hgb (test code = Hgb) 14.1 12.0-16.0 [facility] DentonIdcmbloOCPLLUMOHQ5680-42-11 11:12:00 Test Item Value Reference Range Interpretation Comments RBC (test code = RBC) 4.81 4.20-5.40 [facility] DentonHygydhqJAXXDCWCBS4975-57-51 11:12:00 Test Item Value Reference Range Interpretation Comments Hct (test code = Hct) 40.8 36.0-48.0 [facility] DentonBxobwkxLWQTDGJSOY1628-45-88 11:12:00 Test Item Value Reference Range Interpretation Comments MCV (test code = MCV) 84.9 80.0-98.0 [facility] DentonFfsuwmnKCSNNEYRKV6453-95-98 11:12:00 Test Item Value Reference Range Interpretation Comments MCH (test code = MCH) 29.4 pg 27.0-31.0 [facility] DentonKkmdffoGORXBZRSJQ2153-46-39 11:12:00 Test Item Value Reference Range Interpretation Comments MCHC (test code = MCHC) 34.6 32.0-36.0 [facility] DentonZecvsdkOZWXWLNTPG4664-99-82 11:12:00 Test Item Value Reference Range Interpretation Comments RDW (test code = RDW) 12.4 11.5-14.5 [facility] DentonTesfxicWDOBAJDICU0537-91-10 11:12:00 Test Item Value Reference Range Interpretation Comments Platelet (test code = Platelet) 234 133-450 [facility] DentonAatumayTSAZBIFJUB7307-43-41 11:12:00 Test Item Value Reference Range Interpretation Comments MPV (test code = MPV) 9.8 7.4-10.4 [facility] DentonHjuvqvqOZAPQJLXYB0260-37-88 11:12:00 Test Item Value Reference Range Interpretation Comments Basophils # (test code 0.1 See_Comment [Aut omated message] The = Basophils #) system which generated this result tra nsmitted reference range : <=0.2. The reference r severo was not used to int erpret this result as normal/abnormal . [facility] DentonLzmjgzzJVQAHPSNGQ0177-52-50 11:12:00 Test Item Value Reference Range Interpretation Comments Monocytes # (test code 0.7 See_Comment [Aut omated message] The = Monocytes #) system which generated this result tra nsmitted reference range : <=0.8. The reference r severo was not used to int erpret this result as normal/abnormal . [facility] DentonLcbdhqlYIYJHBHBDM2255-66-84 11:12:00 Test Item Value Reference Range Interpretation Comments Eosinophils # (test code 0.6 See_Comment [A utomated message] The = Eosinophils #) system whic h generated this result tra nsmitted reference range : <=0.5. The reference r severo was not used to int erpret this result as normal/abnormal . [facility] DentonOavcukoRDPZPRRVPH4171-51-94 11:12:00 Test Item Value Reference Range Interpretation Comments Lymphocytes (test code = Lymphocytes) 27.7 20.0-40.0 [facility] DentonZtjllyxPDPGCBZEUE6890-60-23 11:12:00 Test Item Value Reference Range Interpretation Comments Segs (test code = Segs) 56.3 45.0-75.0 [facility] DentonLzqoqamBQEMRLIEBZ8745-33-42 11:12:00 Test Item Value Reference Range Interpretation Comments Eosinophils (test code = 6.8 See_Comment [A utomated message] The Eosinophils) system which ge nerated this result tra nsmitted reference range : <=4.0. The reference r severo was not used to int erpret this result as normal/abnormal . [facility] DentonMcaeobvJKGFSDSKHP2224-96-72 11:12:00 Test Item Value Reference Range Interpretation Comments Monocytes (test code = Monocytes) 8.1 2.0-12.0 [facility] DentonSimeruyQPYWZXNSYL9879-40-84 11:12:00 Test Item Value Reference Range Interpretation Comments Lymphocytes # (test code = Lymphocytes 2.3 1.0-5.5 #) [facility] DentonYloliyuLXKYIPXGLX3831-21-90 11:12:00 Test Item Value Reference Range Interpretation Comments Basophils (test code = 1.1 See_Comment [Aut omated message] The Basophils) system which ge nerated this result tra nsmitted reference range : <=1.0. The reference r severo was not used to int erpret this result as normal/abnormal . [facility]OM4431[facility] 11:12:00 Test Item Value Reference Range Interpretation Comments Neutrophils # (test code = Neutrophils 4.6 1.5-8.1 #) [facility] AKKVKJK2495-28-61 11:12:00 Test Item Value Reference Range Interpretation Comments BNP (test code = BNP) 20 [facility] BLKKJSF3988-10-37 11:12:00 Test Item Value Reference Range Interpretation Comments Troponin-I (test code no gt See_Comment [Auto mated message] The = Troponin-I) system which g enerated this result transmit plac[place] reference range : <=0.40. The reference r severo was not used to interpr et this result as jazzy l/abnormal. [facility] DLQJG3238-82-14 11:12:00 Test Item Value Reference Range Interpretation Comments eGFR (test code = eGFR) 98 [facility]2019-02-17 11:12:00 Test Item Value Reference Range Interpretation Comments AST (test code = AST) 19 See_Comment [Auto mated message] The system which ge nerated this result transmit placido reference range : <=37. The reference range was not used to interpr et this result as jazzy l/abnormal. [facility] TWAPD7595-32-23 11:12:00 Test Item Value Reference Range Interpretation Comments Bili Total (test code = Bili Total) 0.2 0.2-1.3 [facility]2019-02-17 11:12:00 Test Item Value Reference Range Interpretation Comments Alk Phos (test code = Alk Phos) 84 39-136 [facility]2019-02-17 11:12:00 Test Item Value Reference Range Interpretation Comments Creatinine Lvl (test code = Creatinine 0.70 0.50-1.40 Lvl) [facility]2019-02-17 11:12:00 Test Item Value Reference Range Interpretation Comments BUN (test code = BUN) 14 7-22 [facility]2019-02-17 11:12:00 Test Item Value Reference Range Interpretation Comments Glucose Lvl (test code = Glucose Lvl) 114 70-99 [facility]2019-02-17 11:12:00 Test Item Value Reference Range Interpretation Comments Albumin Lvl (test code = Albumin Lvl) 3.3 3.5-5.0 [facility]2019-02-17 11:12:00 Test Item Value Reference Range Interpretation Comments Total Protein (test code = Total 8.2 6.4-8.4 Protein) [facility]2019-02-17 11:12:00 Test Item Value Reference Range Interpretation Comments ALT (test code = ALT) 29 See_Comment [Auto mated message] The system which ge nerated this result transmit plac[place] reference range : <=65. The reference range was not used to interpr et this result as jazzy l/abnormal. [facility]2019-02-17 11:12:00 Test Item Value Reference Range Interpretation Comments Sodium Lvl (test code = Sodium Lvl) 139 135-145 [facility]2019-02-17 11:12:00 Test Item Value Reference Range Interpretation Comments Chloride Lvl (test code = Chloride Lvl) 103 95-109 [facility]2019-02-17 11:12:00 Test Item Value Reference Range Interpretation Comments Potassium Lvl (test code = Potassium 3.5 3.5-5.1 Lvl) [facility]2019-02-17 11:12:00 Test Item Value Reference Range Interpretation Comments Calcium Lvl (test code = Calcium Lvl) 8.6 8.5-10.5 [facility]2019-02-17 11:12:00 Test Item Value Reference Range Interpretation Comments CO2 (test code = CO2) 26 24-32 [facility]2019-02-17 11:12:00 Test Item Value Reference Range Interpretation Comments B/C Ratio (test code = B/C Ratio) 20 1 6-25 [facility]2019-02-17 11:12:00 Test Item Value Reference Range Interpretation Comments A/G Ratio (test code = A/G Ratio) 0.7 1 0.7-1.6 [place] 950139-02-17 11:12:00 Test Item Value Reference Range Interpretation Comments Globulin (test code = Globulin) 4.9 2.7-4.2 [facility]CHE[facility] JEQNZ2313-02-65 11:12:00 Test Item Value Reference Range Interpretation Comments AGAP (test code = AGAP) 13.5 10.0-20.0 [facility]evilleZrgfqbfYXNMALXQBQLGZ6690-09-80 11:12:00 Test Item Value Reference Range Interpretation Comments hCG Tot (test code = hCG Tot) 5 [facility] DentonZmkvxthMNZYUVJWGT3373-44-80 11:12:00 Test Item Value Reference Range Interpretation Comments D-Dimer (test code = D-Dimer) 0.45 [facility] DentonAiljozqHWJKXECLNF9556-45-97 11:12:00 Test Item Value Reference Range Interpretation Comments WBC (test code = WBC) 8.2 3.7-10.4 [facility] DentonGlxbqdcLCNROYVIIF0898-10-22 11:12:00 Test Item Value Reference Range Interpretation Comments Hgb (test code = Hgb) 14.1 12.0-16.0 [facility] DentonDvtdtvzCGKBNCZAKF2328-77-62 11:12:00 Test Item Value Reference Range Interpretation Comments RBC (test code = RBC) 4.81 4.20-5.40 [facility] DentonDvtcnylOYYGDPZNII8618-99-37 11:12:00 Test Item Value Reference Range Interpretation Comments Hct (test code = Hct) 40.8 36.0-48.0 [facility] DentonCmoppxqWMVNZNCCQK3073-98-51 11:12:00 Test Item Value Reference Range Interpretation Comments MCV (test code = MCV) 84.9 80.0-98.0 [facility] DentonMqxfhraHUAOQACDZI2620-09-48 11:12:00 Test Item Value Reference Range Interpretation Comments MCH (test code = MCH) 29.4 pg 27.0-31.0 [facility] DentonWflbwakRJHVAMWANR4925-07-70 11:12:00 Test Item Value Reference Range Interpretation Comments MCHC (test code = MCHC) 34.6 32.0-36.0 [facility] DentonQdeqtgkZLZJSQAWWB4898-21-90 11:12:00 Test Item Value Reference Range Interpretation Comments RDW (test code = RDW) 12.4 11.5-14.5 [facility] DentonPosmveiPPHECAIEPG8735-84-76 11:12:00 Test Item Value Reference Range Interpretation Comments Platelet (test code = Platelet) 234 133-450 [facility] DentonPrwtcvhAMWYQNWDHE7683-60-38 11:12:00 Test Item Value Reference Range Interpretation Comments MPV (test code = MPV) 9.8 7.4-10.4 [facility] DentonBirqzhrNSSOOHPHNQ3957-19-15 11:12:00 Test Item Value Reference Range Interpretation Comments Basophils # (test code 0.1 See_Comment [Aut omated message] The = Basophils #) system which generated this result tra nsmitted reference range : <=0.2. The reference r severo was not used to int erpret this result as normal/abnormal . [facility] DentonIirvkadMAULAOOOQN7763-95-65 11:12:00 Test Item Value Reference Range Interpretation Comments Monocytes # (test code 0.7 See_Comment [Aut omated message] The = Monocytes #) system which generated this result tra nsmitted reference range : <=0.8. The reference r severo was not used to int erpret this result as normal/abnormal . [facility] DentonQwnlsqbAOWBPFETSD2855-45-83 11:12:00 Test Item Value Reference Range Interpretation Comments Eosinophils # (test code 0.6 See_Comment [A utomated message] The = Eosinophils #) system whic h generated this result tra nsmitted reference range : <=0.5. The reference r severo was not used to int erpret this result as normal/abnormal . [facility] DentonUmkkatbKREIOVKBVJ0985-99-65 11:12:00 Test Item Value Reference Range Interpretation Comments Lymphocytes (test code = Lymphocytes) 27.7 20.0-40.0 [facility] DentonWnrwcmxUEVWMHPYHS8190-73-84 11:12:00 Test Item Value Reference Range Interpretation Comments Segs (test code = Segs) 56.3 45.0-75.0 [facility] DentonCjceagiTINVLXQEIC3573-85-01 11:12:00 Test Item Value Reference Range Interpretation Comments Eosinophils (test code = 6.8 See_Comment [A utomated message] The Eosinophils) system which ge nerated this result tra nsmitted reference range : <=4.0. The reference r severo was not used to int erpret this result as normal/abnormal . [facility] DentonQyskoggXCKFOKQVYT2529-28-29 11:12:00 Test Item Value Reference Range Interpretation Comments Monocytes (test code = Monocytes) 8.1 2.0-12.0 [facility] DentonPlutpzcMNHACBSOVK7240-25-50 11:12:00 Test Item Value Reference Range Interpretation Comments Lymphocytes # (test code = Lymphocytes 2.3 1.0-5.5 #) [facility] DentonIhtphpuPMMLQMLGUZ7560-24-45 11:12:00 Test Item Value Reference Range Interpretation Comments Basophils (test code = 1.1 See_Comment [Aut omated message] The Basophils) system which ge nerated this result tra nsmitted reference range : <=1.0. The reference r severo was not used to int erpret this result as normal/abnormal . [facility] DentonAjvrvouLWWOORRBGW5925-05-10 11:12:00 Test Item Value Reference Range Interpretation Comments Neutrophils # (test code = Neutrophils 4.6 1.5-8.1 #) [facility] SMNGLTN7369-61-79 11:12:00 Test Item Value Reference Range Interpretation Comments BNP (test code = BNP) 20 [facility] YRVMHEM8227-27-12 11:12:00 Test Item Value Reference Range Interpretation Comments Troponin-I (test code no gt See_Comment [Auto mated message] The = Troponin-I) system which g enerated this result transmit [place] reference range : <=0.40. The reference r severo was not used to interpr et this result as jazzy l/abnormal. [facility]live[facility] SKEWC6912-69-33 11:12:00 Test Item Value Reference Range Interpretation Comments eGFR (test code = eGFR) 98 [facility]2019-02-17 11:12:00 Test Item Value Reference Range Interpretation Comments AST (test code = AST) 19 See_Comment [Auto mated message] The system which ge nerated this result transmit plac[place] reference range : <=37. The reference range was not used to interpr et this result as jazzy l/abnormal. [facility]2019-02-17 11:12:00 Test Item Value Reference Range Interpretation Comments Bili Total (test code = Bili Total) 0.2 0.2-1.3 [facility]2019-02-17 11:12:00 Test Item Value Reference Range Interpretation Comments Alk Phos (test code = Alk Phos) 84 39-136 [facility]2019-02-17 11:12:00 Test Item Value Reference Range Interpretation Comments Creatinine Lvl (test code = Creatinine 0.70 0.50-1.40 Lvl) [facility]2019-02-17 11:12:00 Test Item Value Reference Range Interpretation Comments BUN (test code = BUN) 14 7-22 [facility]2019-02-17 11:12:00 Test Item Value Reference Range Interpretation Comments Glucose Lvl (test code = Glucose Lvl) 114 70-99 [facility]2019-02-17 11:12:00 Test Item Value Reference Range Interpretation Comments Albumin Lvl (test code = Albumin Lvl) 3.3 3.5-5.0 [facility]2019-02-17 11:12:00 Test Item Value Reference Range Interpretation Comments Total Protein (test code = Total 8.2 6.4-8.4 Protein) [facility]2019-02-17 11:12:00 Test Item Value Reference Range Interpretation Comments ALT (test code = ALT) 29 See_Comment [Auto mated message] The system which ge nerated this result transmit plac[place] reference range : <=65. The reference range was not used to interpr et this result as jazzy l/abnormal. [facility]2019-02-17 11:12:00 Test Item Value Reference Range Interpretation Comments Sodium Lvl (test code = Sodium Lvl) 139 135-145 [facility]2019-02-17 11:12:00 Test Item Value Reference Range Interpretation Comments Chloride Lvl (test code = Chloride Lvl) 103 95-109 [facility]2019-02-17 11:12:00 Test Item Value Reference Range Interpretation Comments Potassium Lvl (test code = Potassium 3.5 3.5-5.1 Lvl) [facility]2019-02-17 11:12:00 Test Item Value Reference Range Interpretation Comments Calcium Lvl (test code = Calcium Lvl) 8.6 8.5-10.5 [facility]2019-02-17 11:12:00 Test Item Value Reference Range Interpretation Comments CO2 (test code = CO2) 26 24-32 [facility]2019-02-17 11:12:00 Test Item Value Reference Range Interpretation Comments B/C Ratio (test code = B/C Ratio) 20 1 6-25 [place] 950139-02-17 11:12:00 Test Item Value Reference Range Interpretation Comments A/G Ratio (test code = A/G Ratio) 0.7 1 0.7-1.6 [facility]2019-02-17 11:12:00 Test Item Value Reference Range Interpretation Comments Globulin (test code = Globulin) 4.9 2.7-4.2 [facility]2019-02-17 11:12:00 Test Item Value Reference Range Interpretation Comments AGAP (test code = AGAP) 13.5 10.0-20.0 [facility]PlbrznfAUTOLEBJWVXRS2329-55-78 11:12:00 Test Item Value Reference Range Interpretation Comments hCG Tot (test code = hCG Tot) 5 [facility] DentonLtqoawoGMMJIRYQVF7568-60-61 11:12:00 Test Item Value Reference Range Interpretation Comments D-Dimer (test code = D-Dimer) 0.45 [facility] DentonMluiwlxYRGPYMLEJL1813-30-11 11:12:00 Test Item Value Reference Range Interpretation Comments WBC (test code = WBC) 8.2 3.7-10.4 [facility] DentonGhukrgcAXYCYSPPUM7004-35-29 11:12:00 Test Item Value Reference Range Interpretation Comments Hgb (test code = Hgb) 14.1 12.0-16.0 [facility] DentonOfzpenfMNYEIYDRTQ8077-81-03 11:12:00 Test Item Value Reference Range Interpretation Comments RBC (test code = RBC) 4.81 4.20-5.40 [facility] DentonYdoepvrVZUVUGOEIZ8575-40-86 11:12:00 Test Item Value Reference Range Interpretation Comments Hct (test code = Hct) 40.8 36.0-48.0 [facility] DentonRqkafwfPIIOSMWIEE2782-10-81 11:12:00 Test Item Value Reference Range Interpretation Comments MCV (test code = MCV) 84.9 80.0-98.0 [facility] DentonRfyqsxwJTCIFHCCDI7172-96-58 11:12:00 Test Item Value Reference Range Interpretation Comments MCH (test code = MCH) 29.4 pg 27.0-31.0 [facility] DentonDdnycveWOVWUJJDBD9995-61-58 11:12:00 Test Item Value Reference Range Interpretation Comments MCHC (test code = MCHC) 34.6 32.0-36.0 [facility] DentonXjkhebxPPLRYYZHXE3365-61-50 11:12:00 Test Item Value Reference Range Interpretation Comments RDW (test code = RDW) 12.4 11.5-14.5 [facility] DentonGlbvbxkLAXDCCXLOI9013-53-44 11:12:00 Test Item Value Reference Range Interpretation Comments Platelet (test code = Platelet) 234 133-450 [facility] DentonQjcboxuIPNYBAJZBB8582-78-71 11:12:00 Test Item Value Reference Range Interpretation Comments MPV (test code = MPV) 9.8 7.4-10.4 [facility] DentonVrvhxvhVMHBYYRPWE9451-87-72 11:12:00 Test Item Value Reference Range Interpretation Comments Basophils # (test code 0.1 See_Comment [Aut omated message] The = Basophils #) system which generated this result tra nsmitted reference range : <=0.2. The reference r severo was not used to int erpret this result as normal/abnormal . [facility] DentonMrcaxpxGRUGKHEWBM1471-55-24 11:12:00 Test Item Value Reference Range Interpretation Comments Monocytes # (test code 0.7 See_Comment [Aut omated message] The = Monocytes #) system which generated this result tra nsmitted reference range : <=0.8. The reference r severo was not used to int erpret this result as normal/abnormal . [id number] 11:12:00 Test Item Value Reference Range Interpretation Comments Eosinophils # (test code 0.6 See_Comment [A utomated message] The = Eosinophils #) system whic h generated this result tra nsmitted reference range : <=0.5. The reference r severo was not used to int erpret this result as normal/abnormal . [id number] 11:12:00 Test Item Value Reference Range Interpretation Comments Lymphocytes (test code = Lymphocytes) 27.7 20.0-40.0 [id number] 11:12:00 Test Item Value Reference Range Interpretation Comments Segs (test code = Segs) 56.3 45.0-75.0 [facility] [id number] 11:12:00 Test Item Value Reference Range Interpretation Comments Eosinophils (test code = 6.8 See_Comment [A utomated message] The Eosinophils) system which ge nerated this result tra nsmitted reference range : <=4.0. The reference r severo was not used to int erpret this result as normal/abnormal . [facility] [id number] 11:12:00 Test Item Value Reference Range Interpretation Comments Monocytes (test code = Monocytes) 8.1 2.0-12.0 [facility] [id number] 11:12:00 Test Item Value Reference Range Interpretation Comments Lymphocytes # (test code = Lymphocytes 2.3 1.0-5.5 #) [facility] [id number] 11:12:00 Test Item Value Reference Range Interpretation Comments Basophils (test code = 1.1 See_Comment [Aut omated message] The Basophils) system which ge nerated this result tra nsmitted reference range : <=1.0. The reference r severo was not used to int erpret this result as normal/abnormal . [facility] [id number] 11:12:00 Test Item Value Reference Range Interpretation Comments Neutrophils # (test code = Neutrophils 4.6 1.5-8.1 #) [facility] [id number] 11:12:00 Test Item Value Reference Range Interpretation Comments BNP (test code = BNP) 20 [facility] [id number] 11:12:00 Test Item Value Reference Range Interpretation Comments Troponin-I (test code no gt See_Comment [Auto mated message] The = Troponin-I) system which g enerated this result transmit placido reference range : <=0.40. The reference r severo was not used to interpr et this result as jazzy l/abnormal. [facility] [id number] 11:12:00 Test Item Value Reference Range Interpretation Comments eGFR (test code = eGFR) 98 [facility]2019-02-17 11:12:00 Test Item Value Reference Range Interpretation Comments AST (test code = AST) 19 See_Comment [Auto mated message] The system which ge nerated this result transmit placido reference range : <=37. The reference range was not used to interpr et this result as jazzy l/abnormal. [facility] [id number] 11:12:00 Test Item Value Reference Range Interpretation Comments Bili Total (test code = Bili Total) 0.2 0.2-1.3 [facility] [id number] 11:12:00 Test Item Value Reference Range Interpretation Comments Alk Phos (test code = Alk Phos) 84 39-136 [facility]2019-02-17 11:12:00 Test Item Value Reference Range Interpretation Comments Creatinine Lvl (test code = Creatinine 0.70 0.50-1.40 Lvl) [facility]2019-02-17 11:12:00 Test Item Value Reference Range Interpretation Comments BUN (test code = BUN) 14 7-22 [facility]2019-02-17 11:12:00 Test Item Value Reference Range Interpretation Comments Glucose Lvl (test code = Glucose Lvl) 114 70-99 [facility]2019-02-17 11:12:00 Test Item Value Reference Range Interpretation Comments Albumin Lvl (test code = Albumin Lvl) 3.3 3.5-5.0 [facility]2019-02-17 11:12:00 Test Item Value Reference Range Interpretation Comments Total Protein (test code = Total 8.2 6.4-8.4 Protein) [facility]2019-02-17 11:12:00 Test Item Value Reference Range Interpretation Comments ALT (test code = ALT) 29 See_Comment [Auto mated message] The system which ge nerated this result transmit placido reference range : <=65. The reference range was not used to interpr et this result as jazzy l/abnormal. [facility]2019-02-17 11:12:00 Test Item Value Reference Range Interpretation Comments Sodium Lvl (test code = Sodium Lvl) 139 135-145 [facility]2019-02-17 11:12:00 Test Item Value Reference Range Interpretation Comments Chloride Lvl (test code = Chloride Lvl) 103 95-109 [facility]2019-02-17 11:12:00 Test Item Value Reference Range Interpretation Comments Potassium Lvl (test code = Potassium 3.5 3.5-5.1 Lvl) [facility]2019-02-17 11:12:00 Test Item Value Reference Range Interpretation Comments Calcium Lvl (test code = Calcium Lvl) 8.6 8.5-10.5 [facility]2019-02-17 11:12:00 Test Item Value Reference Range Interpretation Comments CO2 (test code = CO2) 26 24-32 [facility]2019-02-17 11:12:00 Test Item Value Reference Range Interpretation Comments B/C Ratio (test code = B/C Ratio) 20 1 6-25 [facility]2019-02-17 11:12:00 Test Item Value Reference Range Interpretation Comments A/G Ratio (test code = A/G Ratio) 0.7 1 0.7-1.6 [facility]2019-02-17 11:12:00 Test Item Value Reference Range Interpretation Comments Globulin (test code = Globulin) 4.9 2.7-4.2 [facility]2019-02-17 11:12:00 Test Item Value Reference Range Interpretation Comments AGAP (test code = AGAP) 13.5 10.0-20.0 [place] [id number] 11:12:00 Test Item Value Reference Range Interpretation Comments hCG Tot (test code = hCG Tot) 5 [id number] 11:12:00 Test Item Value Reference Range Interpretation Comments D-Dimer (test code = D-Dimer) 0.45 [facility] [id number] 11:12:00 Test Item Value Reference Range Interpretation Comments WBC (test code = WBC) 8.2 3.7-10.4 [facility] [id number] 11:12:00 Test Item Value Reference Range Interpretation Comments Hgb (test code = Hgb) 14.1 12.0-16.0 [facility] [id number] 11:12:00 Test Item Value Reference Range Interpretation Comments RBC (test code = RBC) 4.81 4.20-5.40 [facility] [id number] 11:12:00 Test Item Value Reference Range Interpretation Comments Hct (test code = Hct) 40.8 36.0-48.0 [facility] [id number] 11:12:00 Test Item Value Reference Range Interpretation Comments MCV (test code = MCV) 84.9 80.0-98.0 [facility] [id number] 11:12:00 Test Item Value Reference Range Interpretation Comments MCH (test code = MCH) 29.4 pg 27.0-31.0 [facility] [id number] 11:12:00 Test Item Value Reference Range Interpretation Comments MCHC (test code = MCHC) 34.6 32.0-36.0 [facility] DentonOynhlrkAWJZASWKVZ7430-03-43 11:12:00 Test Item Value Reference Range Interpretation Comments RDW (test code = RDW) 12.4 11.5-14.5 [facility] [id number] 11:12:00 Test Item Value Reference Range Interpretation Comments Platelet (test code = Platelet) 234 133-450 [facility] [id number] 11:12:00 Test Item Value Reference Range Interpretation Comments MPV (test code = MPV) 9.8 7.4-10.4 [facility] [id number] 11:12:00 Test Item Value Reference Range Interpretation Comments Basophils # (test code 0.1 See_Comment [Aut omated message] The = Basophils #) system which generated this result tra nsmitted reference range : <=0.2. The reference r severo was not used to int erpret this result as normal/abnormal . [facility]2018-03-28 13:41:00 Test Item Value Reference Range Interpretation Comments eGFR (test code = eGFR) 101 [facility]2018-03-28 13:41:00 Test Item Value Reference Range Interpretation Comments Sodium Lvl (test code = Sodium Lvl) 135 135-145 [facility]2018-03-28 13:41:00 Test Item Value Reference Range Interpretation Comments Chloride Lvl (test code = Chloride Lvl) 101 95-109 [facility]2018-03-28 13:41:00 Test Item Value Reference Range Interpretation Comments Potassium Lvl (test code = Potassium 4.2 3.5-5.1 Lvl) [facility]2018-03-28 13:41:00 Test Item Value Reference Range Interpretation Comments Calcium Lvl (test code = Calcium Lvl) 8.8 8.5-10.5 [facility]2018-03-28 13:41:00 Test Item Value Reference Range Interpretation Comments CO2 (test code = CO2) 26 24-32 [facility]2018-03-28 13:41:00 Test Item Value Reference Range Interpretation Comments AGAP (test code = AGAP) 12.2 10.0-20.0 [facility]2018-03-28 13:41:00 Test Item Value Reference Range Interpretation Comments BUN (test code = BUN) 13 02-22 [facility]2018-03-28 13:41:00 Test Item Value Reference Range Interpretation Comments Glucose Lvl (test code = Glucose Lvl) 298 70-99 [facility]2018-03-28 13:41:00 Test Item Value Reference Range Interpretation Comments Creatinine Lvl (test code = Creatinine 0.63 0.50-1.40 Lvl) [facility]2018-03-28 13:41:00 Test Item Value Reference Range Interpretation Comments eGFR (test code = eGFR) 101 [facility]2018-03-28 13:41:00 Test Item Value Reference Range Interpretation Comments Sodium Lvl (test code = Sodium Lvl) 135 135-145 [facility]2018-03-28 13:41:00 Test Item Value Reference Range Interpretation Comments Chloride Lvl (test code = Chloride Lvl) 101 95-109 [facility]2018-03-28 13:41:00 Test Item Value Reference Range Interpretation Comments Potassium Lvl (test code = Potassium 4.2 3.5-5.1 Lvl) [facility]2018-03-28 13:41:00 Test Item Value Reference Range Interpretation Comments Calcium Lvl (test code = Calcium Lvl) 8.8 8.5-10.5 [facility]2018-03-28 13:41:00 Test Item Value Reference Range Interpretation Comments CO2 (test code = CO2) 26 24-32 [facility]2018-03-28 13:41:00 Test Item Value Reference Range Interpretation Comments AGAP (test code = AGAP) 12.2 10.0-20.0 [facility]2018-03-28 13:41:00 Test Item Value Reference Range Interpretation Comments BUN (test code = BUN) 13 02-22 [facility]2018-03-28 13:41:00 Test Item Value Reference Range Interpretation Comments Glucose Lvl (test code = Glucose Lvl) 298 70-99 [facility]2018-03-28 13:41:00 Test Item Value Reference Range Interpretation Comments Creatinine Lvl (test code = Creatinine 0.63 0.50-1.40 Lvl) [facility]2018-03-28 13:41:00 Test Item Value Reference Range Interpretation Comments eGFR (test code = eGFR) 101 [facility]2018-03-28 13:41:00 Test Item Value Reference Range Interpretation Comments Sodium Lvl (test code = Sodium Lvl) 135 135-145 [facility]2018-03-28 13:41:00 Test Item Value Reference Range Interpretation Comments Chloride Lvl (test code = Chloride Lvl) 101 95-109 [facility]2018-03-28 13:41:00 Test Item Value Reference Range Interpretation Comments Potassium Lvl (test code = Potassium 4.2 3.5-5.1 Lvl) [facility]2018-03-28 13:41:00 Test Item Value Reference Range Interpretation Comments Calcium Lvl (test code = Calcium Lvl) 8.8 8.5-10.5 [facility]2018-03-28 13:41:00 Test Item Value Reference Range Interpretation Comments CO2 (test code = CO2) 26 24-32 [facility]2018-03-28 13:41:00 Test Item Value Reference Range Interpretation Comments AGAP (test code = AGAP) 12.2 10.0-20.0 [facility]2018-03-28 13:41:00 Test Item Value Reference Range Interpretation Comments BUN (test code = BUN) 13 02-22 [facility]2018-03-28 13:41:00 Test Item Value Reference Range Interpretation Comments Glucose Lvl (test code = Glucose Lvl) 298 70-99 [facility]2018-03-28 13:41:00 Test Item Value Reference Range Interpretation Comments Creatinine Lvl (test code = Creatinine 0.63 0.50-1.40 Lvl) [facility]2018-03-28 13:41:00 Test Item Value Reference Range Interpretation Comments eGFR (test code = eGFR) 101 [facility]2018-03-28 13:41:00 Test Item Value Reference Range Interpretation Comments Sodium Lvl (test code = Sodium Lvl) 135 135-145 [facility]2018-03-28 13:41:00 Test Item Value Reference Range Interpretation Comments Chloride Lvl (test code = Chloride Lvl) 101 95-109 [facility]2018-03-28 13:41:00 Test Item Value Reference Range Interpretation Comments Potassium Lvl (test code = Potassium 4.2 3.5-5.1 Lvl) [facility]2018-03-28 13:41:00 Test Item Value Reference Range Interpretation Comments Calcium Lvl (test code = Calcium Lvl) 8.8 8.5-10.5 [facility]2018-03-28 13:41:00 Test Item Value Reference Range Interpretation Comments CO2 (test code = CO2) [facility]2018-03-28 13:41:00 Test Item Value Reference Range Interpretation Comments AGAP (test code = AGAP) 12.2 10.0-20.0 [facility]2018-03-28 13:41:00 Test Item Value Reference Range Interpretation Comments BUN (test code = BUN) 13 02-22 [facility]2018-03-28 13:41:00 Test Item Value Reference Range Interpretation Comments Glucose Lvl (test code = Glucose Lvl) 298 70-99 [facility]2018-03-28 13:41:00 Test Item Value Reference Range Interpretation Comments Creatinine Lvl (test code = Creatinine 0.63 0.50-1.40 Lvl) [facility]2018-03-28 13:41:00 Test Item Value Reference Range Interpretation Comments eGFR (test code = eGFR) 101 [facility]2018-03-28 13:41:00 Test Item Value Reference Range Interpretation Comments Sodium Lvl (test code = Sodium Lvl) 135 135-145 [facility]2018-03-28 13:41:00 Test Item Value Reference Range Interpretation Comments Chloride Lvl (test code = Chloride Lvl) 101 95-109 [facility]2018-03-28 13:41:00 Test Item Value Reference Range Interpretation Comments Potassium Lvl (test code = Potassium 4.2 3.5-5.1 Lvl) [facility]2018-03-28 13:41:00 Test Item Value Reference Range Interpretation Comments Calcium Lvl (test code = Calcium Lvl) 8.8 8.5-10.5 [facility]2018-03-28 13:41:00 Test Item Value Reference Range Interpretation Comments CO2 (test code = CO2) [facility]2018-03-28 13:41:00 Test Item Value Reference Range Interpretation Comments AGAP (test code = AGAP) 12.2 10.0-20.0 [facility]2018-03-28 13:41:00 Test Item Value Reference Range Interpretation Comments BUN (test code = BUN) 02-22 [facility]2018-03-28 13:41:00 Test Item Value Reference Range Interpretation Comments Glucose Lvl (test code = Glucose Lvl) 298 70-99 [facility]2018-03-28 13:41:00 Test Item Value Reference Range Interpretation Comments Creatinine Lvl (test code = Creatinine 0.63 0.50-1.40 Lvl) [facility]2018-03-28 13:41:00 Test Item Value Reference Range Interpretation Comments eGFR (test code = eGFR) 101 [facility]2018-03-28 13:41:00 Test Item Value Reference Range Interpretation Comments Sodium Lvl (test code = Sodium Lvl) 135 135-145 [facility]2018-03-28 13:41:00 Test Item Value Reference Range Interpretation Comments Chloride Lvl (test code = Chloride Lvl) 101 95-109 [facility]2018-03-28 13:41:00 Test Item Value Reference Range Interpretation Comments Potassium Lvl (test code = Potassium 4.2 3.5-5.1 Lvl) [facility]2018-03-28 13:41:00 Test Item Value Reference Range Interpretation Comments Calcium Lvl (test code = Calcium Lvl) 8.8 8.5-10.5 [facility]2018-03-28 13:41:00 Test Item Value Reference Range Interpretation Comments CO2 (test code = CO2) [facility]2018-03-28 13:41:00 Test Item Value Reference Range Interpretation Comments AGAP (test code = AGAP) 12.2 10.0-20.0 [facility]2018-03-28 13:41:00 Test Item Value Reference Range Interpretation Comments BUN (test code = BUN) 13 02-22 [facility]2018-03-28 13:41:00 Test Item Value Reference Range Interpretation Comments Glucose Lvl (test code = Glucose Lvl) 298 70-99 [facility]2018-03-28 13:41:00 Test Item Value Reference Range Interpretation Comments Creatinine Lvl (test code = Creatinine 0.63 0.50-1.40 Lvl) [facility]2018-03-28 13:41:00 Test Item Value Reference Range Interpretation Comments eGFR (test code = eGFR) 101 [facility]2018-03-28 13:41:00 Test Item Value Reference Range Interpretation Comments Sodium Lvl (test code = Sodium Lvl) 135 135-145 [facility]2018-03-28 13:41:00 Test Item Value Reference Range Interpretation Comments Chloride Lvl (test code = Chloride Lvl) 101 95-109 [facility]2018-03-28 13:41:00 Test Item Value Reference Range Interpretation Comments Potassium Lvl (test code = Potassium 4.2 3.5-5.1 Lvl) [facility]2018-03-28 13:41:00 Test Item Value Reference Range Interpretation Comments Calcium Lvl (test code = Calcium Lvl) 8.8 8.5-10.5 [facility]2018-03-28 13:41:00 Test Item Value Reference Range Interpretation Comments CO2 (test code = CO2) 26 24-32 [facility]2018-03-28 13:41:00 Test Item Value Reference Range Interpretation Comments AGAP (test code = AGAP) 12.2 10.0-20.0 [facility]2018-03-28 13:41:00 Test Item Value Reference Range Interpretation Comments BUN (test code = BUN) 13 7-22 [facility]2018-03-28 13:41:00 Test Item Value Reference Range Interpretation Comments Glucose Lvl (test code = Glucose Lvl) 298 70-99 [facility]2018-03-28 13:41:00 Test Item Value Reference Range Interpretation Comments Creatinine Lvl (test code = Creatinine 0.63 0.50-1.40 Lvl) [facility]2018-03-28 13:41:00 Test Item Value Reference Range Interpretation Comments eGFR (test code = eGFR) 101 [facility]2018-03-28 13:41:00 Test Item Value Reference Range Interpretation Comments Sodium Lvl (test code = Sodium Lvl) 135 135-145 [facility]2018-03-28 13:41:00 Test Item Value Reference Range Interpretation Comments Chloride Lvl (test code = Chloride Lvl) 101 95-109 [facility]2018-03-28 13:41:00 Test Item Value Reference Range Interpretation Comments Potassium Lvl (test code = Potassium 4.2 3.5-5.1 Lvl) [facility]2018-03-28 13:41:00 Test Item Value Reference Range Interpretation Comments Calcium Lvl (test code = Calcium Lvl) 8.8 8.5-10.5 [facility]2018-03-28 13:41:00 Test Item Value Reference Range Interpretation Comments CO2 (test code = CO2) 26 24-32 [facility]2018-03-28 13:41:00 Test Item Value Reference Range Interpretation Comments AGAP (test code = AGAP) 12.2 10.0-20.0 [facility]2018-03-28 13:41:00 Test Item Value Reference Range Interpretation Comments BUN (test code = BUN) 13 - [facility]2018-03-28 13:41:00 Test Item Value Reference Range Interpretation Comments Glucose Lvl (test code = Glucose Lvl) 298 70-99 [facility]2018-03-28 13:41:00 Test Item Value Reference Range Interpretation Comments Creatinine Lvl (test code = Creatinine 0.63 0.50-1.40 Lvl) [facility]2017-03-14 03:56:00 Test Item Value Reference Range Interpretation Comments A/G Ratio (test code = A/G Ratio) 0.7 0.7-1.6 [facility]2017-03-14 03:56:00 Test Item Value Reference Range Interpretation Comments AGAP (test code = AGAP) 11.8 10.0-20.0 [facility]2017-03-14 03:56:00 Test Item Value Reference Range Interpretation Comments Globulin (test code = Globulin) 4.9 2.7-4.2 [facility]2017-03-14 03:56:00 Test Item Value Reference Range Interpretation Comments B/C Ratio (test code = B/C Ratio) 18 6-25 [facility]2017-03-14 03:56:00 Test Item Value Reference Range Interpretation Comments eGFR (test code = eGFR) 95 [facility]2017-03-14 03:56:00 Test Item Value Reference Range Interpretation Comments ASPARTATE TRANSAMINASE 11 See_Comment [Aut omated message] (test code = ASPARTATE The s ystem which TRANSAMINASE) generated this result transmitted ref erence range: <=37. Th e reference range was not used to interpr et this result as normal/abnormal . [facility]2017-03-14 03:56:00 Test Item Value Reference Range Interpretation Comments ALANINE AMINOTRANSFERASE 26 See_Comment [A utomated message] (test code = ALANINE The sys tem which AMINOTRANSFERASE) generated this result transmitted ref erence range: <=65. Th e reference range was not used to int erpret this result as normal/abnormal . [facility]2017-03-14 03:56:00 Test Item Value Reference Range Interpretation Comments Albumin Lvl (test code = Albumin Lvl) 3.4 3.5-5.0 [facility]2017-03-14 03:56:00 Test Item Value Reference Range Interpretation Comments Total Protein (test code = Total 8.3 6.4-8.4 Protein) [facility]2017-03-14 03:56:00 Test Item Value Reference Range Interpretation Comments Bili Total (test code = Bili Total) 0.2 0.2-1.3 [facility]2017-03-14 03:56:00 Test Item Value Reference Range Interpretation Comments CO2 (test code = CO2) 26 24-32 [facility]2017-03-14 03:56:00 Test Item Value Reference Range Interpretation Comments Chloride Lvl (test code = Chloride Lvl) 106 95-109 [facility]2017-03-14 03:56:00 Test Item Value Reference Range Interpretation Comments Calcium Lvl (test code = Calcium Lvl) 8.9 8.5-10.5 [facility]2017-03-14 03:56:00 Test Item Value Reference Range Interpretation Comments Glucose Lvl (test code = Glucose Lvl) 197 70-99 [facility]2017-03-14 03:56:00 Test Item Value Reference Range Interpretation Comments Alk Phos (test code = Alk Phos) 82 39-136 [facility]2017-03-14 03:56:00 Test Item Value Reference Range Interpretation Comments BUN (test code = BUN) 13 7-22 [facility]2017-03-14 03:56:00 Test Item Value Reference Range Interpretation Comments Potassium Lvl (test code = Potassium 3.8 3.5-5.1 Lvl) [facility]2017-03-14 03:56:00 Test Item Value Reference Range Interpretation Comments Sodium Lvl (test code = Sodium Lvl) 140 135-145 [facility]2017-03-14 03:56:00 Test Item Value Reference Range Interpretation Comments Creatinine Lvl (test code = Creatinine 0.73 0.50-1.40 Lvl) [facility]fvnqyFEMUWVTHEB6330-90-68 03:56:00 Test Item Value Reference Range Interpretation Comments PROTIME (test code = PROTIME) 11.7 s 12.0-14.7 [facility]entonZldbatmTPTIIOKVJK4027-60-55 03:56:00 Test Item Value Reference Range Interpretation Comments INR (test code = INR) 0.84 0.85-1.17 [facility]entonSokdvoaSAJEVZWAAU2106-85-41 03:56:00 Test Item Value Reference Range Interpretation Comments Hgb (test code = Hgb) 13.8 12.0-16.0 [facility]entonEbhgjuvABKDUMKAZU8917-83-27 03:56:00 Test Item Value Reference Range Interpretation Comments WBC X 10x3 (test code = WBC X 10x3) 7.8 3.7-10.4 [facility] DentonIwdzadvDEEJZAMXFF8719-84-42 03:56:00 Test Item Value Reference Range Interpretation Comments RBC X 10x6 (test code = RBC X 10x6) 4.78 4.20-5.40 [facility]entonUqyvqujEGXBABZJNI0999-62-18 03:56:00 Test Item Value Reference Range Interpretation Comments Hct (test code = Hct) 41.0 36.0-48.0 [facility] DentonMmgswgtBFGTLVGVVY5161-40-42 03:56:00 Test Item Value Reference Range Interpretation Comments MCV (test code = MCV) 85.9 80.0-98.0 [facility] DentonKwbelcfXPNZGYCTLQ9399-68-29 03:56:00 Test Item Value Reference Range Interpretation Comments MCHC (test code = MCHC) 33.6 32.0-36.0 [facility] DentonJpuzbluFSVBNBBVUS5817-00-28 03:56:00 Test Item Value Reference Range Interpretation Comments MCH (test code = MCH) 28.9 pg 27.0-31.0 [facility] DentonRnylzvtQOSUVIDBZX4926-19-92 03:56:00 Test Item Value Reference Range Interpretation Comments Platelet (test code = Platelet) 204 133-450 [facility] DentonEotvkbfATHFEEABSL1478-40-63 03:56:00 Test Item Value Reference Range Interpretation Comments RDW (test code = RDW) 12.7 11.5-14.5 [facility] DentonShnjytsKHYGUPZOXF3139-90-63 03:56:00 Test Item Value Reference Range Interpretation Comments MPV (test code = MPV) 9.8 7.4-10.4 [facility] DentonLerkfmyHXLTWSCCWB6199-99-26 03:56:00 Test Item Value Reference Range Interpretation Comments Basophils # (test code 0.1 See_Comment [Aut omated message] The = Basophils #) system which generated this result tra nsmitted reference range : <=0.2. The reference r severo was not used to int erpret this result as normal/abnormal . [facility] DentonWrakvbqKENMLDZZPT7595-46-00 03:56:00 Test Item Value Reference Range Interpretation Comments Basophils (test code = 0.7 See_Comment [Aut omated message] The Basophils) system which ge nerated this result tra nsmitted reference range : <=1.0. The reference r severo was not used to int erpret this result as normal/abnormal . [facility] DentonIpexyfkOCYBALVEQQ0323-99-38 03:56:00 Test Item Value Reference Range Interpretation Comments Eosinophils # (test code 0.3 See_Comment [A utomated message] The = Eosinophils #) system whic h generated this result tra nsmitted reference range : <=0.5. The reference r severo was not used to int erpret this result as normal/abnormal . [facility] DentonOypfzmlRQTNWDVCBS9140-77-82 03:56:00 Test Item Value Reference Range Interpretation Comments Lymphocytes # (test code = Lymphocytes 3.0 1.0-5.5 #) [facility] DentonIithorxBDUCZPXCNY1760-79-57 03:56:00 Test Item Value Reference Range Interpretation Comments Segs-Bands # (test code = Segs-Bands #) 3.9 1.5-8.1 [facility] DentonPbmryymYDOMFKLRXJ5541-21-27 03:56:00 Test Item Value Reference Range Interpretation Comments Monocytes # (test code 0.5 See_Comment [Aut omated message] The = Monocytes #) system which generated this result tra nsmitted reference range : <=0.8. The reference r severo was not used to int erpret this result as normal/abnormal . [place] 461377-03-14 03:56:00 Test Item Value Reference Range Interpretation Comments Segs (test code = Segs) 49.9 45.0-75.0 [facility] DentonWkfzmlqXVGRPQPDAI0005-38-20 03:56:00 Test Item Value Reference Range Interpretation Comments Eosinophils (test code = 3.8 See_Comment [A utomated message] The Eosinophils) system which ge nerated this result tra nsmitted reference range : <=4.0. The reference r severo was not used to int erpret this result as normal/abnormal . [place] 461377-03-14 03:56:00 Test Item Value Reference Range Interpretation Comments Monocytes (test code = Monocytes) 6.9 2.0-12.0 [place] 461377-03-14 03:56:00 Test Item Value Reference Range Interpretation Comments Lymphocytes (test code = Lymphocytes) 38.7 20.0-40.0 [facility]2017-03-14 03:56:00 Test Item Value Reference Range Interpretation Comments A/G Ratio (test code = A/G Ratio) 0.7 0.7-1.6 [facility]2017-03-14 03:56:00 Test Item Value Reference Range Interpretation Comments AGAP (test code = AGAP) 11.8 10.0-20.0 [facility]2017-03-14 03:56:00 Test Item Value Reference Range Interpretation Comments Globulin (test code = Globulin) 4.9 2.7-4.2 [facility]2017-03-14 03:56:00 Test Item Value Reference Range Interpretation Comments B/C Ratio (test code = B/C Ratio) 18 6-25 [facility]2017-03-14 03:56:00 Test Item Value Reference Range Interpretation Comments eGFR (test code = eGFR) 95 [facility]2017-03-14 03:56:00 Test Item Value Reference Range Interpretation Comments ASPARTATE TRANSAMINASE 11 See_Comment [Aut omated message] (test code = ASPARTATE The s ystem which TRANSAMINASE) generated this result transmitted ref erence range: <=37. Th e reference range was not used to interpr et this result as normal/abnormal . [facility]2017-03-14 03:56:00 Test Item Value Reference Range Interpretation Comments ALANINE AMINOTRANSFERASE 26 See_Comment [A utomated message] (test code = ALANINE The sys tem which AMINOTRANSFERASE) generated this result transmitted ref erence range: <=65. Th e reference range was not used to int erpret this result as normal/abnormal . [facility]2017-03-14 03:56:00 Test Item Value Reference Range Interpretation Comments Albumin Lvl (test code = Albumin Lvl) 3.4 3.5-5.0 [facility]2017-03-14 03:56:00 Test Item Value Reference Range Interpretation Comments Total Protein (test code = Total 8.3 6.4-8.4 Protein) [facility]2017-03-14 03:56:00 Test Item Value Reference Range Interpretation Comments Bili Total (test code = Bili Total) 0.2 0.2-1.3 [facility]2017-03-14 03:56:00 Test Item Value Reference Range Interpretation Comments CO2 (test code = CO2) 26 24-32 [facility]2017-03-14 03:56:00 Test Item Value Reference Range Interpretation Comments Chloride Lvl (test code = Chloride Lvl) 106 95-109 [facility]2017-03-14 03:56:00 Test Item Value Reference Range Interpretation Comments Calcium Lvl (test code = Calcium Lvl) 8.9 8.5-10.5 [facility]2017-03-14 03:56:00 Test Item Value Reference Range Interpretation Comments Glucose Lvl (test code = Glucose Lvl) 197 70-99 [facility]2017-03-14 03:56:00 Test Item Value Reference Range Interpretation Comments Alk Phos (test code = Alk Phos) 82 39-136 [facility]2017-03-14 03:56:00 Test Item Value Reference Range Interpretation Comments BUN (test code = BUN) 13 7-22 [facility]2017-03-14 03:56:00 Test Item Value Reference Range Interpretation Comments Potassium Lvl (test code = Potassium 3.8 3.5-5.1 Lvl) [facility]2017-03-14 03:56:00 Test Item Value Reference Range Interpretation Comments Sodium Lvl (test code = Sodium Lvl) 140 135-145 [facility]2017-03-14 03:56:00 Test Item Value Reference Range Interpretation Comments Creatinine Lvl (test code = Creatinine 0.73 0.50-1.40 Lvl) [facility]entonXvotudqFVGWMIEJVA8403-63-43 03:56:00 Test Item Value Reference Range Interpretation Comments PROTIME (test code = PROTIME) 11.7 s 12.0-14.7 [facility]entonCgzudqlCMYPSNZDJX4157-16-92 03:56:00 Test Item Value Reference Range Interpretation Comments INR (test code = INR) 0.84 0.85-1.17 [facility] DentonWrewbjzBEKGACULOR4891-03-31 03:56:00 Test Item Value Reference Range Interpretation Comments Hgb (test code = Hgb) 13.8 12.0-16.0 [facility] DentonDcpygopXRTQIZEIND1227-36-96 03:56:00 Test Item Value Reference Range Interpretation Comments WBC X 10x3 (test code = WBC X 10x3) 7.8 3.7-10.4 [facility] DentonYuwopwzIGWOHZYIWX5957-19-83 03:56:00 Test Item Value Reference Range Interpretation Comments RBC X 10x6 (test code = RBC X 10x6) 4.78 4.20-5.40 [facility] DentonCgxhikhMHDZKKPQAX2723-00-77 03:56:00 Test Item Value Reference Range Interpretation Comments Hct (test code = Hct) 41.0 36.0-48.0 [facility] DentonKhjglabHHZUVIWVXO1414-44-46 03:56:00 Test Item Value Reference Range Interpretation Comments MCV (test code = MCV) 85.9 80.0-98.0 [facility] DentonDbwsjvjTOZXVCLLMY0246-43-80 03:56:00 Test Item Value Reference Range Interpretation Comments MCHC (test code = MCHC) 33.6 32.0-36.0 [facility] DentonXnberkhBABMYTDUGV9843-59-33 03:56:00 Test Item Value Reference Range Interpretation Comments MCH (test code = MCH) 28.9 pg 27.0-31.0 [facility] DentonKrgiceeBVQVQXBDIU6714-54-28 03:56:00 Test Item Value Reference Range Interpretation Comments Platelet (test code = Platelet) 204 133-450 [facility] DentonOgfpmcvTXDTWJDTHT8412-15-82 03:56:00 Test Item Value Reference Range Interpretation Comments RDW (test code = RDW) 12.7 11.5-14.5 [facility] DentonDlkaruaCTQOPKZAJU8540-98-17 03:56:00 Test Item Value Reference Range Interpretation Comments MPV (test code = MPV) 9.8 7.4-10.4 [facility] DentonRkbmdfzJWHRYYEEYJ8951-26-70 03:56:00 Test Item Value Reference Range Interpretation Comments Basophils # (test code 0.1 See_Comment [Aut omated message] The = Basophils #) system which generated this result tra nsmitted reference range : <=0.2. The reference r severo was not used to int erpret this result as normal/abnormal . [facility] DentonSydlaceVZKVIDVBHR4296-07-88 03:56:00 Test Item Value Reference Range Interpretation Comments Basophils (test code = 0.7 See_Comment [Aut omated message] The Basophils) system which ge nerated this result tra nsmitted reference range : <=1.0. The reference r severo was not used to int erpret this result as normal/abnormal . [facility] DentonVaojcdnOPVHWERZYD4793-80-92 03:56:00 Test Item Value Reference Range Interpretation Comments Eosinophils # (test code 0.3 See_Comment [A utomated message] The = Eosinophils #) system whic h generated this result tra nsmitted reference range : <=0.5. The reference r severo was not used to int erpret this result as normal/abnormal . [facility] DentonEcyfyziIEBKQZCJUB9454-44-67 03:56:00 Test Item Value Reference Range Interpretation Comments Lymphocytes # (test code = Lymphocytes 3.0 1.0-5.5 #) [facility] DentonTleqwtpVTPJMEYARL8277-69-36 03:56:00 Test Item Value Reference Range Interpretation Comments Segs-Bands # (test code = Segs-Bands #) 3.9 1.5-8.1 [facility] DentonIpdnhdgXRLKYCEFZF0291-26-97 03:56:00 Test Item Value Reference Range Interpretation Comments Monocytes # (test code 0.5 See_Comment [Aut omated message] The = Monocytes #) system which generated this result tra nsmitted reference range : <=0.8. The reference r severo was not used to int erpret this result as normal/abnormal . [facility] DentonQqwjggnWXLJTZCHBI0663-92-47 03:56:00 Test Item Value Reference Range Interpretation Comments Segs (test code = Segs) 49.9 45.0-75.0 [facility] DentonJuyxjsgSOYPCDZCDZ8173-55-18 03:56:00 Test Item Value Reference Range Interpretation Comments Eosinophils (test code = 3.8 See_Comment [A utomated message] The Eosinophils) system which ge nerated this result tra nsmitted reference range : <=4.0. The reference r severo was not used to int erpret this result as normal/abnormal . [facility] DentonZgejgnuJCBXFJBUGW7884-38-82 03:56:00 Test Item Value Reference Range Interpretation Comments Monocytes (test code = Monocytes) 6.9 2.0-12.0 [facility] DentonJrbcvbkFAYOCNGMDD6837-39-37 03:56:00 Test Item Value Reference Range Interpretation Comments Lymphocytes (test code = Lymphocytes) 38.7 20.0-40.0 [facility]2017-03-14 03:56:00 Test Item Value Reference Range Interpretation Comments A/G Ratio (test code = A/G Ratio) 0.7 0.7-1.6 [place] 950137-03-14 03:56:00 Test Item Value Reference Range Interpretation Comments AGAP (test code = AGAP) 11.8 10.0-20.0 [facility]2017-03-14 03:56:00 Test Item Value Reference Range Interpretation Comments Globulin (test code = Globulin) 4.9 2.7-4.2 [facility]2017-03-14 03:56:00 Test Item Value Reference Range Interpretation Comments B/C Ratio (test code = B/C Ratio) 18 6-25 [facility]2017-03-14 03:56:00 Test Item Value Reference Range Interpretation Comments eGFR (test code = eGFR) 95 [facility]2017-03-14 03:56:00 Test Item Value Reference Range Interpretation Comments ASPARTATE TRANSAMINASE 11 See_Comment [Aut omated message] (test code = ASPARTATE The s ystem which TRANSAMINASE) generated this result transmitted ref erence range: <=37. Th e reference range was not used to interpr et this result as normal/abnormal . [facility]2017-03-14 03:56:00 Test Item Value Reference Range Interpretation Comments ALANINE AMINOTRANSFERASE 26 See_Comment [A utomated message] (test code = ALANINE The sys tem which AMINOTRANSFERASE) generated this result transmitted ref erence range: <=65. Th e reference range was not used to int erpret this result as normal/abnormal . [facility]2017-03-14 03:56:00 Test Item Value Reference Range Interpretation Comments Albumin Lvl (test code = Albumin Lvl) 3.4 3.5-5.0 [facility]2017-03-14 03:56:00 Test Item Value Reference Range Interpretation Comments Total Protein (test code = Total 8.3 6.4-8.4 Protein) [facility]2017-03-14 03:56:00 Test Item Value Reference Range Interpretation Comments Bili Total (test code = Bili Total) 0.2 0.2-1.3 [facility]2017-03-14 03:56:00 Test Item Value Reference Range Interpretation Comments CO2 (test code = CO2) 26 24-32 [facility]2017-03-14 03:56:00 Test Item Value Reference Range Interpretation Comments Chloride Lvl (test code = Chloride Lvl) 106 95-109 [facility]2017-03-14 03:56:00 Test Item Value Reference Range Interpretation Comments Calcium Lvl (test code = Calcium Lvl) 8.9 8.5-10.5 [facility]2017-03-14 03:56:00 Test Item Value Reference Range Interpretation Comments Glucose Lvl (test code = Glucose Lvl) 197 70-99 [facility]2017-03-14 03:56:00 Test Item Value Reference Range Interpretation Comments Alk Phos (test code = Alk Phos) 82 39-136 [facility]2017-03-14 03:56:00 Test Item Value Reference Range Interpretation Comments BUN (test code = BUN) 13 7-22 [facility]2017-03-14 03:56:00 Test Item Value Reference Range Interpretation Comments Potassium Lvl (test code = Potassium 3.8 3.5-5.1 Lvl) [place] 950137-03-14 03:56:00 Test Item Value Reference Range Interpretation Comments Sodium Lvl (test code = Sodium Lvl) 140 135-145 [facility]2017-03-14 03:56:00 Test Item Value Reference Range Interpretation Comments Creatinine Lvl (test code = Creatinine 0.73 0.50-1.40 Lvl) [facility] DentonZzszfukSQSAMDZOIV8558-91-33 03:56:00 Test Item Value Reference Range Interpretation Comments PROTIME (test code = PROTIME) 11.7 s 12.0-14.7 [facility] DentonFwyuwvaOFOTQVFPGZ0889-96-94 03:56:00 Test Item Value Reference Range Interpretation Comments INR (test code = INR) 0.84 0.85-1.17 [facility] DentonIvetmnbIBDPNONDRS1918-65-52 03:56:00 Test Item Value Reference Range Interpretation Comments Hgb (test code = Hgb) 13.8 12.0-16.0 [facility] DentonGfrwppoCRSACNJJSA0769-98-40 03:56:00 Test Item Value Reference Range Interpretation Comments WBC X 10x3 (test code = WBC X 10x3) 7.8 3.7-10.4 [facility] DentonYwzpcszRBBUNARGUV5277-58-05 03:56:00 Test Item Value Reference Range Interpretation Comments RBC X 10x6 (test code = RBC X 10x6) 4.78 4.20-5.40 [facility] DentonLowousmPLSJJSUFKY9910-77-75 03:56:00 Test Item Value Reference Range Interpretation Comments Hct (test code = Hct) 41.0 36.0-48.0 [facility] DentonFsbpojrJEDUWXCSNP7807-78-86 03:56:00 Test Item Value Reference Range Interpretation Comments MCV (test code = MCV) 85.9 80.0-98.0 [facility] DentonZrkwupwQSKOCOUJQK1789-45-02 03:56:00 Test Item Value Reference Range Interpretation Comments MCHC (test code = MCHC) 33.6 32.0-36.0 [facility] DentonLdtyoaaZBKINCVAZC6255-23-69 03:56:00 Test Item Value Reference Range Interpretation Comments MCH (test code = MCH) 28.9 pg 27.0-31.0 [facility] DentonLlqdqfrZKHVUIFFWI3242-98-20 03:56:00 Test Item Value Reference Range Interpretation Comments Platelet (test code = Platelet) 204 133-450 [facility] DentonDwyploaRPNATIQHDR5997-21-46 03:56:00 Test Item Value Reference Range Interpretation Comments RDW (test code = RDW) 12.7 11.5-14.5 [facility] DentonAplqnerXPJFDYYFZF7314-79-41 03:56:00 Test Item Value Reference Range Interpretation Comments MPV (test code = MPV) 9.8 7.4-10.4 [facility] DentonPohqsofNEVWGBNCQK0405-21-07 03:56:00 Test Item Value Reference Range Interpretation Comments Basophils # (test code 0.1 See_Comment [Aut omated message] The = Basophils #) system which generated this result tra nsmitted reference range : <=0.2. The reference r severo was not used to int erpret this result as normal/abnormal . [facility] DentonOmxrcizHJYYKUQHXV3668-74-29 03:56:00 Test Item Value Reference Range Interpretation Comments Basophils (test code = 0.7 See_Comment [Aut omated message] The Basophils) system which ge nerated this result tra nsmitted reference range : <=1.0. The reference r severo was not used to int erpret this result as normal/abnormal . [facility] DentonKrbuytdUEQSJGSAJK5708-35-35 03:56:00 Test Item Value Reference Range Interpretation Comments Eosinophils # (test code 0.3 See_Comment [A utomated message] The = Eosinophils #) system whic h generated this result tra nsmitted reference range : <=0.5. The reference r severo was not used to int erpret this result as normal/abnormal . [facility] DentonIlfltlcQRWFYXOLYL5461-90-19 03:56:00 Test Item Value Reference Range Interpretation Comments Lymphocytes # (test code = Lymphocytes 3.0 1.0-5.5 #) [facility] DentonNmvbdyvDWGDLSRDOH8007-09-41 03:56:00 Test Item Value Reference Range Interpretation Comments Segs-Bands # (test code = Segs-Bands #) 3.9 1.5-8.1 [facility] DentonVillsghPHYATSLLXW0622-61-17 03:56:00 Test Item Value Reference Range Interpretation Comments Monocytes # (test code 0.5 See_Comment [Aut omated message] The = Monocytes #) system which generated this result tra nsmitted reference range : <=0.8. The reference r severo was not used to int erpret this result as normal/abnormal . [facility] DentonMzzeseuWJJIKJAYFC9276-53-41 03:56:00 Test Item Value Reference Range Interpretation Comments Segs (test code = Segs) 49.9 45.0-75.0 [place] 461377-03-14 03:56:00 Test Item Value Reference Range Interpretation Comments Eosinophils (test code = 3.8 See_Comment [A utomated message] The Eosinophils) system which ge nerated this result tra nsmitted reference range : <=4.0. The reference r severo was not used to int erpret this result as normal/abnormal . [facility] DentonGunlwcdDCGLJGIKTV5945-42-95 03:56:00 Test Item Value Reference Range Interpretation Comments Monocytes (test code = Monocytes) 6.9 2.0-12.0 [facility] DentonEbrgxhoSFHSZXZDEP8624-91-35 03:56:00 Test Item Value Reference Range Interpretation Comments Lymphocytes (test code = Lymphocytes) 38.7 20.0-40.0 [facility]2017-03-14 03:56:00 Test Item Value Reference Range Interpretation Comments A/G Ratio (test code = A/G Ratio) 0.7 0.7-1.6 [place] 950137-03-14 03:56:00 Test Item Value Reference Range Interpretation Comments AGAP (test code = AGAP) 11.8 10.0-20.0 [facility]2017-03-14 03:56:00 Test Item Value Reference Range Interpretation Comments Globulin (test code = Globulin) 4.9 2.7-4.2 [facility]2017-03-14 03:56:00 Test Item Value Reference Range Interpretation Comments B/C Ratio (test code = B/C Ratio) 18 6-25 [facility]2017-03-14 03:56:00 Test Item Value Reference Range Interpretation Comments eGFR (test code = eGFR) 95 [facility]2017-03-14 03:56:00 Test Item Value Reference Range Interpretation Comments ASPARTATE TRANSAMINASE 11 See_Comment [Aut omated message] (test code = ASPARTATE The s ystem which TRANSAMINASE) generated this result transmitted ref erence range: <=37. Th e reference range was not used to interpr et this result as normal/abnormal . [facility]2017-03-14 03:56:00 Test Item Value Reference Range Interpretation Comments ALANINE AMINOTRANSFERASE 26 See_Comment [A utomated message] (test code = ALANINE The sys tem which AMINOTRANSFERASE) generated this result transmitted ref erence range: <=65. Th e reference range was not used to int erpret this result as normal/abnormal . [facility]2017-03-14 03:56:00 Test Item Value Reference Range Interpretation Comments Albumin Lvl (test code = Albumin Lvl) 3.4 3.5-5.0 [facility]2017-03-14 03:56:00 Test Item Value Reference Range Interpretation Comments Total Protein (test code = Total 8.3 6.4-8.4 Protein) [facility]2017-03-14 03:56:00 Test Item Value Reference Range Interpretation Comments Bili Total (test code = Bili Total) 0.2 0.2-1.3 [facility]2017-03-14 03:56:00 Test Item Value Reference Range Interpretation Comments CO2 (test code = CO2) 26 24-32 [facility]2017-03-14 03:56:00 Test Item Value Reference Range Interpretation Comments Chloride Lvl (test code = Chloride Lvl) 106 95-109 [facility]2017-03-14 03:56:00 Test Item Value Reference Range Interpretation Comments Calcium Lvl (test code = Calcium Lvl) 8.9 8.5-10.5 [facility]2017-03-14 03:56:00 Test Item Value Reference Range Interpretation Comments Glucose Lvl (test code = Glucose Lvl) 197 70-99 [facility] Globaleg[facility]CommerceUNC HEALTH PARDEEBZHKQ3933-96-18 03:56:00 Test Item Value Reference Range Interpretation Comments Alk Phos (test code = Alk Phos) 82 39-136 [facility]2017-03-14 03:56:00 Test Item Value Reference Range Interpretation Comments BUN (test code = BUN) 13 7-22 [facility]2017-03-14 03:56:00 Test Item Value Reference Range Interpretation Comments Potassium Lvl (test code = Potassium 3.8 3.5-5.1 Lvl) [facility]2017-03-14 03:56:00 Test Item Value Reference Range Interpretation Comments Sodium Lvl (test code = Sodium Lvl) 140 135-145 [facility]2017-03-14 03:56:00 Test Item Value Reference Range Interpretation Comments Creatinine Lvl (test code = Creatinine 0.73 0.50-1.40 Lvl) [facility]entonZdlivaxTHLATYQWME0066-69-12 03:56:00 Test Item Value Reference Range Interpretation Comments PROTIME (test code = PROTIME) 11.7 s 12.0-14.7 [facility] DentonTtoikrxQRCCIYNVJI1855-38-29 03:56:00 Test Item Value Reference Range Interpretation Comments INR (test code = INR) 0.84 0.85-1.17 [facility] DentonLcapetbIVWNPPFAMV2663-96-47 03:56:00 Test Item Value Reference Range Interpretation Comments Hgb (test code = Hgb) 13.8 12.0-16.0 [facility] DentonQuoxpmnYGWHBFWXAK8553-28-38 03:56:00 Test Item Value Reference Range Interpretation Comments WBC X 10x3 (test code = WBC X 10x3) 7.8 3.7-10.4 [facility] DentonBydkqffYBKGROANWB2529-55-20 03:56:00 Test Item Value Reference Range Interpretation Comments RBC X 10x6 (test code = RBC X 10x6) 4.78 4.20-5.40 [facility] DentonYrbzxcsEJUPYFLUYO1787-13-29 03:56:00 Test Item Value Reference Range Interpretation Comments Hct (test code = Hct) 41.0 36.0-48.0 [facility] DentonCmhhvfpLIOWXGPOAG2662-19-90 03:56:00 Test Item Value Reference Range Interpretation Comments MCV (test code = MCV) 85.9 80.0-98.0 [facility] DentonZhoehriEFQADNNDLF1094-69-29 03:56:00 Test Item Value Reference Range Interpretation Comments MCHC (test code = MCHC) 33.6 32.0-36.0 [facility] DentonIjsjltaZUTVFIGWDE1264-23-63 03:56:00 Test Item Value Reference Range Interpretation Comments MCH (test code = MCH) 28.9 pg 27.0-31.0 [facility] DentonNxgkimtGCSWLGRFJG5278-77-09 03:56:00 Test Item Value Reference Range Interpretation Comments Platelet (test code = Platelet) 204 133-450 [facility] DentonFiuwhdjIXZVLNKXGI4838-58-80 03:56:00 Test Item Value Reference Range Interpretation Comments RDW (test code = RDW) 12.7 11.5-14.5 [facility] DentonQlyqgiqGSUQIQMFBJ7304-07-47 03:56:00 Test Item Value Reference Range Interpretation Comments MPV (test code = MPV) 9.8 7.4-10.4 [facility] DentonPkxqfoxHVENVILQAL6257-59-45 03:56:00 Test Item Value Reference Range Interpretation Comments Basophils # (test code 0.1 See_Comment [Aut omated message] The = Basophils #) system which generated this result tra nsmitted reference range : <=0.2. The reference r severo was not used to int erpret this result as normal/abnormal . [facility] DentonBfntfgwBKMHZBTMCV1460-80-62 03:56:00 Test Item Value Reference Range Interpretation Comments Basophils (test code = 0.7 See_Comment [Aut omated message] The Basophils) system which ge nerated this result tra nsmitted reference range : <=1.0. The reference r severo was not used to int erpret this result as normal/abnormal . [facility] DentonAasvaelAWCDJBNFKQ6489-43-24 03:56:00 Test Item Value Reference Range Interpretation Comments Eosinophils # (test code 0.3 See_Comment [A utomated message] The = Eosinophils #) system whic h generated this result tra nsmitted reference range : <=0.5. The reference r severo was not used to int erpret this result as normal/abnormal . [facility] DentonLzwpynmSMEMQEFITN7721-34-34 03:56:00 Test Item Value Reference Range Interpretation Comments Lymphocytes # (test code = Lymphocytes 3.0 1.0-5.5 #) [facility] DentonNnwqehoUGJDYCQORA6753-53-73 03:56:00 Test Item Value Reference Range Interpretation Comments Segs-Bands # (test code = Segs-Bands #) 3.9 1.5-8.1 [facility] DentonClnbdbnSCITUIOLCX8715-35-36 03:56:00 Test Item Value Reference Range Interpretation Comments Monocytes # (test code 0.5 See_Comment [Aut omated message] The = Monocytes #) system which generated this result tra nsmitted reference range : <=0.8. The reference r severo was not used to int erpret this result as normal/abnormal . [facility] DentonYcvghugWHVOOXWLAP9557-20-42 03:56:00 Test Item Value Reference Range Interpretation Comments Segs (test code = Segs) 49.9 45.0-75.0 [place] 461377-03-14 03:56:00 Test Item Value Reference Range Interpretation Comments Eosinophils (test code = 3.8 See_Comment [A utomated message] The Eosinophils) system which ge nerated this result tra nsmitted reference range : <=4.0. The reference r severo was not used to int erpret this result as normal/abnormal . [place] 461377-03-14 03:56:00 Test Item Value Reference Range Interpretation Comments Monocytes (test code = Monocytes) 6.9 2.0-12.0 [place] 461377-03-14 03:56:00 Test Item Value Reference Range Interpretation Comments Lymphocytes (test code = Lymphocytes) 38.7 20.0-40.0 [facility]2017-03-14 03:56:00 Test Item Value Reference Range Interpretation Comments A/G Ratio (test code = A/G Ratio) 0.7 0.7-1.6 [facility]2017-03-14 03:56:00 Test Item Value Reference Range Interpretation Comments AGAP (test code = AGAP) 11.8 10.0-20.0 [place] 950137-03-14 03:56:00 Test Item Value Reference Range Interpretation Comments Globulin (test code = Globulin) 4.9 2.7-4.2 [facility]2017-03-14 03:56:00 Test Item Value Reference Range Interpretation Comments B/C Ratio (test code = B/C Ratio) 18 6-25 [facility]2017-03-14 03:56:00 Test Item Value Reference Range Interpretation Comments eGFR (test code = eGFR) 95 [place] 950137-03-14 03:56:00 Test Item Value Reference Range Interpretation Comments ASPARTATE TRANSAMINASE 11 See_Comment [Aut omated message] (test code = ASPARTATE The s ystem which TRANSAMINASE) generated this result transmitted ref erence range: <=37. Th e reference range was not used to interpr et this result as normal/abnormal . [facility]2017-03-14 03:56:00 Test Item Value Reference Range Interpretation Comments ALANINE AMINOTRANSFERASE 26 See_Comment [A utomated message] (test code = ALANINE The sys tem which AMINOTRANSFERASE) generated this result transmitted ref erence range: <=65. Th e reference range was not used to int erpret this result as normal/abnormal . [facility]2017-03-14 03:56:00 Test Item Value Reference Range Interpretation Comments Albumin Lvl (test code = Albumin Lvl) 3.4 3.5-5.0 [place] 950137-03-14 03:56:00 Test Item Value Reference Range Interpretation Comments Total Protein (test code = Total 8.3 6.4-8.4 Protein) [facility]2017-03-14 03:56:00 Test Item Value Reference Range Interpretation Comments Bili Total (test code = Bili Total) 0.2 0.2-1.3 [facility]2017-03-14 03:56:00 Test Item Value Reference Range Interpretation Comments CO2 (test code = CO2) 26 24-32 [facility]2017-03-14 03:56:00 Test Item Value Reference Range Interpretation Comments Chloride Lvl (test code = Chloride Lvl) 106 95-109 [facility]2017-03-14 03:56:00 Test Item Value Reference Range Interpretation Comments Calcium Lvl (test code = Calcium Lvl) 8.9 8.5-10.5 [facility]2017-03-14 03:56:00 Test Item Value Reference Range Interpretation Comments Glucose Lvl (test code = Glucose Lvl) 197 70-99 [facility]2017-03-14 03:56:00 Test Item Value Reference Range Interpretation Comments Alk Phos (test code = Alk Phos) 82 39-136 [facility]2017-03-14 03:56:00 Test Item Value Reference Range Interpretation Comments BUN (test code = BUN) 13 7-22 [facility]2017-03-14 03:56:00 Test Item Value Reference Range Interpretation Comments Potassium Lvl (test code = Potassium 3.8 3.5-5.1 Lvl) [facility]2017-03-14 03:56:00 Test Item Value Reference Range Interpretation Comments Sodium Lvl (test code = Sodium Lvl) 140 135-145 [facility]2017-03-14 03:56:00 Test Item Value Reference Range Interpretation Comments Creatinine Lvl (test code = Creatinine 0.73 0.50-1.40 Lvl) [facility] DentonKxanuilOSRTEYDPVG4556-97-68 03:56:00 Test Item Value Reference Range Interpretation Comments PROTIME (test code = PROTIME) 11.7 s 12.0-14.7 [facility] DentonSpqficwYRPXYASUDT6933-57-33 03:56:00 Test Item Value Reference Range Interpretation Comments INR (test code = INR) 0.84 0.85-1.17 [facility] DentonHxefmzpNXUAYNUORC4162-83-77 03:56:00 Test Item Value Reference Range Interpretation Comments Hgb (test code = Hgb) 13.8 12.0-16.0 [facility] DentonJwpbhzvIUWQQUKFEL0891-01-75 03:56:00 Test Item Value Reference Range Interpretation Comments WBC X 10x3 (test code = WBC X 10x3) 7.8 3.7-10.4 [facility] DentonFtaazttPIBPMIBSRM1631-26-58 03:56:00 Test Item Value Reference Range Interpretation Comments RBC X 10x6 (test code = RBC X 10x6) 4.78 4.20-5.40 [facility] DentonGoxboycHNPYTSHYQJ7262-85-43 03:56:00 Test Item Value Reference Range Interpretation Comments Hct (test code = Hct) 41.0 36.0-48.0 [facility] DentonWgccwicJNURPAQNCF0575-49-86 03:56:00 Test Item Value Reference Range Interpretation Comments MCV (test code = MCV) 85.9 80.0-98.0 [facility] DentonKksohbfDTQSNZNCQU9238-57-78 03:56:00 Test Item Value Reference Range Interpretation Comments MCHC (test code = MCHC) 33.6 32.0-36.0 [facility] DentonEswkqwbSOUPCPEZTS1326-52-81 03:56:00 Test Item Value Reference Range Interpretation Comments MCH (test code = MCH) 28.9 pg 27.0-31.0 [facility] DentonVaaosqkYUXYQUBHLQ0982-15-21 03:56:00 Test Item Value Reference Range Interpretation Comments Platelet (test code = Platelet) 204 133-450 [facility] DentonLrtparoDMNFSDEHUE0102-93-23 03:56:00 Test Item Value Reference Range Interpretation Comments RDW (test code = RDW) 12.7 11.5-14.5 [facility] DentonAkjajrbFPVNWUIHCN4483-70-03 03:56:00 Test Item Value Reference Range Interpretation Comments MPV (test code = MPV) 9.8 7.4-10.4 [facility] DentonNxyopozOXZCADQZUF7696-36-39 03:56:00 Test Item Value Reference Range Interpretation Comments Basophils # (test code 0.1 See_Comment [Aut omated message] The = Basophils #) system which generated this result tra nsmitted reference range : <=0.2. The reference r severo was not used to int erpret this result as normal/abnormal . [facility] DentonEfusyknEIVGAANSAU3707-52-48 03:56:00 Test Item Value Reference Range Interpretation Comments Basophils (test code = 0.7 See_Comment [Aut omated message] The Basophils) system which ge nerated this result tra nsmitted reference range : <=1.0. The reference r severo was not used to int erpret this result as normal/abnormal . [facility] DentonWacdufkNGBEVUHWKP6780-87-09 03:56:00 Test Item Value Reference Range Interpretation Comments Eosinophils # (test code 0.3 See_Comment [A utomated message] The = Eosinophils #) system whic h generated this result tra nsmitted reference range : <=0.5. The reference r severo was not used to int erpret this result as normal/abnormal . [facility] DentonMwyryaeXFCOTSLZKQ3118-08-02 03:56:00 Test Item Value Reference Range Interpretation Comments Lymphocytes # (test code = Lymphocytes 3.0 1.0-5.5 #) [facility] DentonLokckcnDEZNKMQKZZ0104-43-58 03:56:00 Test Item Value Reference Range Interpretation Comments Segs-Bands # (test code = Segs-Bands #) 3.9 1.5-8.1 [facility] DentonDykhmmtKEBMAGUJDV3342-63-93 03:56:00 Test Item Value Reference Range Interpretation Comments Monocytes # (test code 0.5 See_Comment [Aut omated message] The = Monocytes #) system which generated this result tra nsmitted reference range : <=0.8. The reference r severo was not used to int erpret this result as normal/abnormal . [facility] DentonPjvgvvpLKUEQJDUYJ3640-63-30 03:56:00 Test Item Value Reference Range Interpretation Comments Segs (test code = Segs) 49.9 45.0-75.0 [facility] DentonJiscdtcXILGOACLZV8611-80-49 03:56:00 Test Item Value Reference Range Interpretation Comments Eosinophils (test code = 3.8 See_Comment [A utomated message] The Eosinophils) system which ge nerated this result tra nsmitted reference range : <=4.0. The reference r severo was not used to int erpret this result as normal/abnormal . [facility] DentonGfyuganICNPYXTCJT9209-41-03 03:56:00 Test Item Value Reference Range Interpretation Comments Monocytes (test code = Monocytes) 6.9 2.0-12.0 [facility] DentonCjyiqdjSWIMCXHNXL6202-01-10 03:56:00 Test Item Value Reference Range Interpretation Comments Lymphocytes (test code = Lymphocytes) 38.7 20.0-40.0 [facility]2017-03-14 03:56:00 Test Item Value Reference Range Interpretation Comments A/G Ratio (test code = A/G Ratio) 0.7 0.7-1.6 [place] 950137-03-14 03:56:00 Test Item Value Reference Range Interpretation Comments AGAP (test code = AGAP) 11.8 10.0-20.0 [place] 950137-03-14 03:56:00 Test Item Value Reference Range Interpretation Comments Globulin (test code = Globulin) 4.9 2.7-4.2 [facility]2017-03-14 03:56:00 Test Item Value Reference Range Interpretation Comments B/C Ratio (test code = B/C Ratio) 18 6-25 [facility]2017-03-14 03:56:00 Test Item Value Reference Range Interpretation Comments eGFR (test code = eGFR) 95 [facility]2017-03-14 03:56:00 Test Item Value Reference Range Interpretation Comments ASPARTATE TRANSAMINASE 11 See_Comment [Aut omated message] (test code = ASPARTATE The s ystem which TRANSAMINASE) generated this result transmitted ref erence range: <=37. Th e reference range was not used to interpr et this result as normal/abnormal . [facility]2017-03-14 03:56:00 Test Item Value Reference Range Interpretation Comments ALANINE AMINOTRANSFERASE 26 See_Comment [A utomated message] (test code = ALANINE The sys tem which AMINOTRANSFERASE) generated this result transmitted ref erence range: <=65. Th e reference range was not used to int erpret this result as normal/abnormal . [facility]2017-03-14 03:56:00 Test Item Value Reference Range Interpretation Comments Albumin Lvl (test code = Albumin Lvl) 3.4 3.5-5.0 [facility]2017-03-14 03:56:00 Test Item Value Reference Range Interpretation Comments Total Protein (test code = Total 8.3 6.4-8.4 Protein) [facility]2017-03-14 03:56:00 Test Item Value Reference Range Interpretation Comments Bili Total (test code = Bili Total) 0.2 0.2-1.3 [facility]2017-03-14 03:56:00 Test Item Value Reference Range Interpretation Comments CO2 (test code = CO2) 26 24-32 [facility]2017-03-14 03:56:00 Test Item Value Reference Range Interpretation Comments Chloride Lvl (test code = Chloride Lvl) 106 95-109 [facility]2017-03-14 03:56:00 Test Item Value Reference Range Interpretation Comments Calcium Lvl (test code = Calcium Lvl) 8.9 8.5-10.5 [facility]2017-03-14 03:56:00 Test Item Value Reference Range Interpretation Comments Glucose Lvl (test code = Glucose Lvl) 197 70-99 [facility]2017-03-14 03:56:00 Test Item Value Reference Range Interpretation Comments Alk Phos (test code = Alk Phos) 82 39-136 [facility]2017-03-14 03:56:00 Test Item Value Reference Range Interpretation Comments BUN (test code = BUN) 13 7-22 [facility]2017-03-14 03:56:00 Test Item Value Reference Range Interpretation Comments Potassium Lvl (test code = Potassium 3.8 3.5-5.1 Lvl) [facility]2017-03-14 03:56:00 Test Item Value Reference Range Interpretation Comments Sodium Lvl (test code = Sodium Lvl) 140 135-145 [facility]2017-03-14 03:56:00 Test Item Value Reference Range Interpretation Comments Creatinine Lvl (test code = Creatinine 0.73 0.50-1.40 Lvl) [facility]UrrpghhANSWYIGIPC4005-93-30 03:56:00 Test Item Value Reference Range Interpretation Comments PROTIME (test code = PROTIME) 11.7 s 12.0-14.7 [facility] DentonHbcamffWHQPLNOACN6448-08-02 03:56:00 Test Item Value Reference Range Interpretation Comments INR (test code = INR) 0.84 0.85-1.17 [facility] DentonVklewnoFWXWSFVISD3426-44-93 03:56:00 Test Item Value Reference Range Interpretation Comments Hgb (test code = Hgb) 13.8 12.0-16.0 [facility] DentonJcpbmqmFDYFNJAHWY4558-59-46 03:56:00 Test Item Value Reference Range Interpretation Comments WBC X 10x3 (test code = WBC X 10x3) 7.8 3.7-10.4 [facility] DentonHgrqveoKXBLLEKOSW8633-14-43 03:56:00 Test Item Value Reference Range Interpretation Comments RBC X 10x6 (test code = RBC X 10x6) 4.78 4.20-5.40 [facility] DentonJzouhznTMTCUKDFHW8859-20-83 03:56:00 Test Item Value Reference Range Interpretation Comments Hct (test code = Hct) 41.0 36.0-48.0 [facility] DentonMjxlgcpOKFAINFWCP3216-33-65 03:56:00 Test Item Value Reference Range Interpretation Comments MCV (test code = MCV) 85.9 80.0-98.0 [facility] DentonUztkxrgLIAZNATOVF2054-36-36 03:56:00 Test Item Value Reference Range Interpretation Comments MCHC (test code = MCHC) 33.6 32.0-36.0 [facility] DentonAcefggoGEJYZAFIOD9768-48-67 03:56:00 Test Item Value Reference Range Interpretation Comments MCH (test code = MCH) 28.9 pg 27.0-31.0 [facility] DentonKuugpyrQMKFKWLIUU4179-56-93 03:56:00 Test Item Value Reference Range Interpretation Comments Platelet (test code = Platelet) 204 133-450 [facility] DentonPbxukvkOWWNLHZDRC9651-70-26 03:56:00 Test Item Value Reference Range Interpretation Comments RDW (test code = RDW) 12.7 11.5-14.5 [facility] DentonCargzzpISILJWKJUT7487-59-48 03:56:00 Test Item Value Reference Range Interpretation Comments MPV (test code = MPV) 9.8 7.4-10.4 [facility] DentonJlhvnjoZBTUEGOYUN9967-21-59 03:56:00 Test Item Value Reference Range Interpretation Comments Basophils # (test code 0.1 See_Comment [Aut omated message] The = Basophils #) system which generated this result tra nsmitted reference range : <=0.2. The reference r severo was not used to int erpret this result as normal/abnormal . [facility] DentonAejygnbTOSOWVPRFP3066-83-23 03:56:00 Test Item Value Reference Range Interpretation Comments Basophils (test code = 0.7 See_Comment [Aut omated message] The Basophils) system which ge nerated this result tra nsmitted reference range : <=1.0. The reference r severo was not used to int erpret this result as normal/abnormal . [facility] DentonPbxmorlTEBQTXUHJQ7084-33-31 03:56:00 Test Item Value Reference Range Interpretation Comments Eosinophils # (test code 0.3 See_Comment [A utomated message] The = Eosinophils #) system whic h generated this result tra nsmitted reference range : <=0.5. The reference r severo was not used to int erpret this result as normal/abnormal . [facility] DentonHxncdjfBJRAUSNOWY0490-17-38 03:56:00 Test Item Value Reference Range Interpretation Comments Lymphocytes # (test code = Lymphocytes 3.0 1.0-5.5 #) [facility] DentonXhstwyhNDJLIQKSHW6747-13-62 03:56:00 Test Item Value Reference Range Interpretation Comments Segs-Bands # (test code = Segs-Bands #) 3.9 1.5-8.1 [facility] DentonKrvhfwrWBFJATUVXM7165-71-56 03:56:00 Test Item Value Reference Range Interpretation Comments Monocytes # (test code 0.5 See_Comment [Aut omated message] The = Monocytes #) system which generated this result tra nsmitted reference range : <=0.8. The reference r severo was not used to int erpret this result as normal/abnormal . [facility] DentonAjrckklSRBDMCOOGL3809-55-54 03:56:00 Test Item Value Reference Range Interpretation Comments Segs (test code = Segs) 49.9 45.0-75.0 [facility] DentonDbsnlagABEYPMZTKX5488-05-44 03:56:00 Test Item Value Reference Range Interpretation Comments Eosinophils (test code = 3.8 See_Comment [A utomated message] The Eosinophils) system which ge nerated this result tra nsmitted reference range : <=4.0. The reference r severo was not used to int erpret this result as normal/abnormal . [facility] DentonLgvnidcJEIJIOQYHS5164-67-13 03:56:00 Test Item Value Reference Range Interpretation Comments Monocytes (test code = Monocytes) 6.9 2.0-12.0 [facility] DentonWqkoyroJYMVJENHYA7772-00-68 03:56:00 Test Item Value Reference Range Interpretation Comments Lymphocytes (test code = Lymphocytes) 38.7 20.0-40.0 [facility]2017-03-14 03:56:00 Test Item Value Reference Range Interpretation Comments A/G Ratio (test code = A/G Ratio) 0.7 0.7-1.6 [place] [id number] 03:56:00 Test Item Value Reference Range Interpretation Comments AGAP (test code = AGAP) 11.8 10.0-20.0 [place] [id number] 03:56:00 Test Item Value Reference Range Interpretation Comments Globulin (test code = Globulin) 4.9 2.7-4.2 [facility]2017-03-14 03:56:00 Test Item Value Reference Range Interpretation Comments B/C Ratio (test code = B/C Ratio) 18 6-25 [place] [id number] 03:56:00 Test Item Value Reference Range Interpretation Comments eGFR (test code = eGFR) 95 [facility]2017-03-14 03:56:00 Test Item Value Reference Range Interpretation Comments ASPARTATE TRANSAMINASE 11 See_Comment [Aut omated message] (test code = ASPARTATE The s ystem which TRANSAMINASE) generated this result transmitted ref erence range: <=37. Th e reference range was not used to interpr et this result as normal/abnormal . [facility]2017-03-14 03:56:00 Test Item Value Reference Range Interpretation Comments ALANINE AMINOTRANSFERASE 26 See_Comment [A utomated message] (test code = ALANINE The sys tem which AMINOTRANSFERASE) generated this result transmitted ref erence range: <=65. Th e reference range was not used to int erpret this result as normal/abnormal . [facility]2017-03-14 03:56:00 Test Item Value Reference Range Interpretation Comments Albumin Lvl (test code = Albumin Lvl) 3.4 3.5-5.0 [place] [id number] 03:56:00 Test Item Value Reference Range Interpretation Comments Total Protein (test code = Total 8.3 6.4-8.4 Protein) [facility]2017-03-14 03:56:00 Test Item Value Reference Range Interpretation Comments Bili Total (test code = Bili Total) 0.2 0.2-1.3 [place] [id number] 03:56:00 Test Item Value Reference Range Interpretation Comments CO2 (test code = CO2) 26 24-32 [facility]2017-03-14 03:56:00 Test Item Value Reference Range Interpretation Comments Chloride Lvl (test code = Chloride Lvl) 106 95-109 [facility]2017-03-14 03:56:00 Test Item Value Reference Range Interpretation Comments Calcium Lvl (test code = Calcium Lvl) 8.9 8.5-10.5 [facility]2017-03-14 03:56:00 Test Item Value Reference Range Interpretation Comments Glucose Lvl (test code = Glucose Lvl) 197 70-99 [facility]2017-03-14 03:56:00 Test Item Value Reference Range Interpretation Comments Alk Phos (test code = Alk Phos) 82 39-136 [facility]2017-03-14 03:56:00 Test Item Value Reference Range Interpretation Comments BUN (test code = BUN) 13 7-22 [facility]2017-03-14 03:56:00 Test Item Value Reference Range Interpretation Comments Potassium Lvl (test code = Potassium 3.8 3.5-5.1 Lvl) [facility]2017-03-14 03:56:00 Test Item Value Reference Range Interpretation Comments Sodium Lvl (test code = Sodium Lvl) 140 135-145 [facility]2017-03-14 03:56:00 Test Item Value Reference Range Interpretation Comments Creatinine Lvl (test code = Creatinine 0.73 0.50-1.40 Lvl) [facility]sy[facility]umBAADCNAVVY0856-84-17 03:56:00 Test Item Value Reference Range Interpretation Comments PROTIME (test code = PROTIME) 11.7 s 12.0-14.7 [facility]entonWrzmekqXEKDGPBFJS7727-40-08 03:56:00 Test Item Value Reference Range Interpretation Comments INR (test code = INR) 0.84 0.85-1.17 [id number] 03:56:00 Test Item Value Reference Range Interpretation Comments Hgb (test code = Hgb) 13.8 12.0-16.0 [facility] DentonNoqawyjPBETVCTYDK5268-00-48 03:56:00 Test Item Value Reference Range Interpretation Comments WBC X 10x3 (test code = WBC X 10x3) 7.8 3.7-10.4 [facility] DentonLzniepdIQRBLNWNKX3829-52-35 03:56:00 Test Item Value Reference Range Interpretation Comments RBC X 10x6 (test code = RBC X 10x6) 4.78 4.20-5.40 [facility] DentonRwsvqlfXOKBBBVAUG0781-08-11 03:56:00 Test Item Value Reference Range Interpretation Comments Hct (test code = Hct) 41.0 36.0-48.0 [facility] DentonSkjhnirFARILUJNSM9757-39-23 03:56:00 Test Item Value Reference Range Interpretation Comments MCV (test code = MCV) 85.9 80.0-98.0 [facility] DentonTlqpqtcDWRGGQJAWR9440-43-32 03:56:00 Test Item Value Reference Range Interpretation Comments MCHC (test code = MCHC) 33.6 32.0-36.0 [facility] [id number] 03:56:00 Test Item Value Reference Range Interpretation Comments MCH (test code = MCH) 28.9 pg 27.0-31.0 [facility] DentonAdohejnTVGHMXARIV5039-66-07 03:56:00 Test Item Value Reference Range Interpretation Comments Platelet (test code = Platelet) 204 133-450 [facility] DentonQwavdlgDQVTHHJJUY2627-96-20 03:56:00 Test Item Value Reference Range Interpretation Comments RDW (test code = RDW) 12.7 11.5-14.5 [facility] DentonMofvdrpHINSOFINQM3124-16-23 03:56:00 Test Item Value Reference Range Interpretation Comments MPV (test code = MPV) 9.8 7.4-10.4 [facility] Dent[id number] 03:56:00 Test Item Value Reference Range Interpretation Comments Basophils # (test code 0.1 See_Comment [Aut omated message] The = Basophils #) system which generated this result tra nsmitted reference range : <=0.2. The reference r severo was not used to int erpret this result as normal/abnormal . [facility] DentonRnpcjkpTYROCQCTQB3422-92-24 03:56:00 Test Item Value Reference Range Interpretation Comments Basophils (test code = 0.7 See_Comment [Aut omated message] The Basophils) system which ge nerated this result tra nsmitted reference range : <=1.0. The reference r severo was not used to int erpret this result as normal/abnormal . [facility] DentonDbpmzrcVJOBHRKUNA3669-27-10 03:56:00 Test Item Value Reference Range Interpretation Comments Eosinophils # (test code 0.3 See_Comment [A utomated message] The = Eosinophils #) system whic h generated this result tra nsmitted reference range : <=0.5. The reference r severo was not used to int erpret this result as normal/abnormal . [facility] DentonUujdtsiIESGZJIAUY8997-48-39 03:56:00 Test Item Value Reference Range Interpretation Comments Lymphocytes # (test code = Lymphocytes 3.0 1.0-5.5 #) [facility] DentonSlvbasyNBQDKRGYTD7985-86-71 03:56:00 Test Item Value Reference Range Interpretation Comments Segs-Bands # (test code = Segs-Bands #) 3.9 1.5-8.1 [facility] DentonCqbqcwdUHKNYCYCWT0395-04-04 03:56:00 Test Item Value Reference Range Interpretation Comments Monocytes # (test code 0.5 See_Comment [Aut omated message] The = Monocytes #) system which generated this result tra nsmitted reference range : <=0.8. The reference r severo was not used to int erpret this result as normal/abnormal . [facility] DentonJndrisuAVHGCMKPWD3113-81-13 03:56:00 Test Item Value Reference Range Interpretation Comments Segs (test code = Segs) 49.9 45.0-75.0 [facility] DentonOdcirtjJKGJONPLGR8304-44-76 03:56:00 Test Item Value Reference Range Interpretation Comments Eosinophils (test code = 3.8 See_Comment [A utomated message] The Eosinophils) system which ge nerated this result tra nsmitted reference range : <=4.0. The reference r severo was not used to int erpret this result as normal/abnormal . [facility] DentonRikeocdXZRNWTBWTD2040-35-58 03:56:00 Test Item Value Reference Range Interpretation Comments Monocytes (test code = Monocytes) 6.9 2.0-12.0 [facility] DentonTdxijiuCBZUUUPLTX7397-71-60 03:56:00 Test Item Value Reference Range Interpretation Comments Lymphocytes (test code = Lymphocytes) 38.7 20.0-40.0 [facility]2017-03-14 03:56:00 Test Item Value Reference Range Interpretation Comments A/G Ratio (test code = A/G Ratio) 0.7 0.7-1.6 [facility]2017-03-14 03:56:00 Test Item Value Reference Range Interpretation Comments AGAP (test code = AGAP) 11.8 10.0-20.0 [facility]2017-03-14 03:56:00 Test Item Value Reference Range Interpretation Comments Globulin (test code = Globulin) 4.9 2.7-4.2 [facility]2017-03-14 03:56:00 Test Item Value Reference Range Interpretation Comments B/C Ratio (test code = B/C Ratio) 18 6-25 [facility]2017-03-14 03:56:00 Test Item Value Reference Range Interpretation Comments eGFR (test code = eGFR) 95 [facility]2017-03-14 03:56:00 Test Item Value Reference Range Interpretation Comments ASPARTATE TRANSAMINASE 11 See_Comment [Aut omated message] (test code = ASPARTATE The s ystem which TRANSAMINASE) generated this result transmitted ref erence range: <=37. Th e reference range was not used to interpr et this result as normal/abnormal . [facility]2017-03-14 03:56:00 Test Item Value Reference Range Interpretation Comments ALANINE AMINOTRANSFERASE 26 See_Comment [A utomated message] (test code = ALANINE The sys tem which AMINOTRANSFERASE) generated this result transmitted ref erence range: <=65. Th e reference range was not used to int erpret this result as normal/abnormal . [facility]2017-03-14 03:56:00 Test Item Value Reference Range Interpretation Comments Albumin Lvl (test code = Albumin Lvl) 3.4 3.5-5.0 [place] 950137-03-14 03:56:00 Test Item Value Reference Range Interpretation Comments Total Protein (test code = Total 8.3 6.4-8.4 Protein) [facility]2017-03-14 03:56:00 Test Item Value Reference Range Interpretation Comments Bili Total (test code = Bili Total) 0.2 0.2-1.3 [facility]2017-03-14 03:56:00 Test Item Value Reference Range Interpretation Comments CO2 (test code = CO2) 26 24-32 [place] 950137-03-14 03:56:00 Test Item Value Reference Range Interpretation Comments Chloride Lvl (test code = Chloride Lvl) 106 95-109 [facility]2017-03-14 03:56:00 Test Item Value Reference Range Interpretation Comments Calcium Lvl (test code = Calcium Lvl) 8.9 8.5-10.5 [facility]2017-03-14 03:56:00 Test Item Value Reference Range Interpretation Comments Glucose Lvl (test code = Glucose Lvl) 197 70-99 [facility]2017-03-14 03:56:00 Test Item Value Reference Range Interpretation Comments Alk Phos (test code = Alk Phos) 82 39-136 [facility]2017-03-14 03:56:00 Test Item Value Reference Range Interpretation Comments BUN (test code = BUN) 13 7-22 [facility]2017-03-14 03:56:00 Test Item Value Reference Range Interpretation Comments Potassium Lvl (test code = Potassium 3.8 3.5-5.1 Lvl) [facility]2017-03-14 03:56:00 Test Item Value Reference Range Interpretation Comments Sodium Lvl (test code = Sodium Lvl) 140 135-145 [facility]2017-03-14 03:56:00 Test Item Value Reference Range Interpretation Comments Creatinine Lvl (test code = Creatinine 0.73 0.50-1.40 Lvl) [facility]entonTpjkhwkHJZPFDDDJS9245-16-06 03:56:00 Test Item Value Reference Range Interpretation Comments PROTIME (test code = PROTIME) 11.7 s 12.0-14.7 [facility] [id number] 03:56:00 Test Item Value Reference Range Interpretation Comments INR (test code = INR) 0.84 0.85-1.17 [facility] D[id number] 03:56:00 Test Item Value Reference Range Interpretation Comments Hgb (test code = Hgb) 13.8 12.0-16.0 [place] 461377-03-14 03:56:00 Test Item Value Reference Range Interpretation Comments WBC X 10x3 (test code = WBC X 10x3) 7.8 3.7-10.4 [facility] DentonNpqrlxxCFDSBGNPKU6073-76-44 03:56:00 Test Item Value Reference Range Interpretation Comments RBC X 10x6 (test code = RBC X 10x6) 4.78 4.20-5.40 [facility] DentonIsvrtieZOZMHXEYPS4033-25-14 03:56:00 Test Item Value Reference Range Interpretation Comments Hct (test code = Hct) 41.0 36.0-48.0 [facility] DentonBrgskceIFCFLYGHUQ2608-38-71 03:56:00 Test Item Value Reference Range Interpretation Comments MCV (test code = MCV) 85.9 80.0-98.0 [facility] DentonDxvmzqoITIRWUWGOY4308-40-74 03:56:00 Test Item Value Reference Range Interpretation Comments MCHC (test code = MCHC) 33.6 32.0-36.0 [facility] DentonCmjcapoYLIQUTGRKO6516-14-76 03:56:00 Test Item Value Reference Range Interpretation Comments MCH (test code = MCH) 28.9 pg 27.0-31.0 [facility] DentonIfzsqncPYAZHLVVXL4830-66-90 03:56:00 Test Item Value Reference Range Interpretation Comments Platelet (test code = Platelet) 204 133-450 [facility] Dent[id number] 03:56:00 Test Item Value Reference Range Interpretation Comments RDW (test code = RDW) 12.7 11.5-14.5 [facility] DentonOivjtrlEWFOBDNVSJ3767-74-68 03:56:00 Test Item Value Reference Range Interpretation Comments MPV (test code = MPV) 9.8 7.4-10.4 [facility] DentonSnfnmghAESQBMTOGC3959-12-35 03:56:00 Test Item Value Reference Range Interpretation Comments Basophils # (test code 0.1 See_Comment [Aut omated message] The = Basophils #) system which generated this result tra nsmitted reference range : <=0.2. The reference r severo was not used to int erpret this result as normal/abnormal . [place] 461377-03-14 03:56:00 Test Item Value Reference Range Interpretation Comments Basophils (test code = 0.7 See_Comment [Aut omated message] The Basophils) system which ge nerated this result tra nsmitted reference range : <=1.0. The reference r severo was not used to int erpret this result as normal/abnormal . [facility] DentonMagqyekZYOWBIJKMO2718-33-16 03:56:00 Test Item Value Reference Range Interpretation Comments Eosinophils # (test code 0.3 See_Comment [A utomated message] The = Eosinophils #) system whic h generated this result tra nsmitted reference range : <=0.5. The reference r severo was not used to int erpret this result as normal/abnormal . [facility] DentonJqwmbwzRDVLVDXGJN6075-14-96 03:56:00 Test Item Value Reference Range Interpretation Comments Lymphocytes # (test code = Lymphocytes 3.0 1.0-5.5 #) [facility] DentonTjjqbqdZWBAFHRSLJ2446-80-70 03:56:00 Test Item Value Reference Range Interpretation Comments Segs-Bands # (test code = Segs-Bands #) 3.9 1.5-8.1 [facility] DentonAroncxsQUNDIAZUIH5586-72-75 03:56:00 Test Item Value Reference Range Interpretation Comments Monocytes # (test code 0.5 See_Comment [Aut omated message] The = Monocytes #) system which generated this result tra nsmitted reference range : <=0.8. The reference r severo was not used to int erpret this result as normal/abnormal . [facility] DentonHuoitddJPNBJCEUXT2717-12-37 03:56:00 Test Item Value Reference Range Interpretation Comments Segs (test code = Segs) 49.9 45.0-75.0 [facility] DentonNnarlaqPYMFVDYOFM1427-61-94 03:56:00 Test Item Value Reference Range Interpretation Comments Eosinophils (test code = 3.8 See_Comment [A utomated message] The Eosinophils) system which ge nerated this result tra nsmitted reference range : <=4.0. The reference r severo was not used to int erpret this result as normal/abnormal . [facility] D[id number] 03:56:00 Test Item Value Reference Range Interpretation Comments Monocytes (test code = Monocytes) 6.9 2.0-12.0 [facility] DentonUtgajzpCOKGSJNTIM9863-31-02 03:56:00 Test Item Value Reference Range Interpretation Comments Lymphocytes (test code = Lymphocytes) 38.7 20.0-40.0 [facility] [id number] 03:02:00 Test Item Value Reference Range Interpretation Comments UA Bacteria (test code = UA Occasional /HPF Bacteria) [facility] AND [id number] 03:02:00 Test Item Value Reference Range Interpretation Comments UA Blood (test code = Trace *ABN*(10/14/16 UA Blood) 10:02 PM) [facility] AND [id number] 03:02:00 Test Item Value Reference Range Interpretation Comments UA Urobilinogen (test code = UA 0.2 0.1-1.0 Urobilinogen) [facility] AND [id number] 03:02:00 Test Item Value Reference Range Interpretation Comments UA Bili (test code = Negative *NA*(10/14/16 UA Bili) 10:02 PM) [facility] AND [id number] 03:02:00 Test Item Value Reference Range Interpretation Comments UA Nitrite (test code Negative (10/14/16 10:02 = UA Nitrite) PM) [facility] AND [id number] 03:02:00 Test Item Value Reference Range Interpretation Comments UA WBC (test code = UA WBC) 0-2 /HPF [facility] AND [id number] 03:02:00 Test Item Value Reference Range Interpretation Comments UA Sq Epi (test code = UA Sq Occasional /LPF Epi) [facility] AND [id number] 03:02:00 Test Item Value Reference Range Interpretation Comments UA Leuk Est (test Negative (10/14/16 10:02 code = UA Leuk Est) PM) [facility] AND [id number] 03:02:00 Test Item Value Reference Range Interpretation Comments UA RBC (test code = 0-2 /HPF See_Comment [Automa placido message] The UA RBC) system which ge nerated this result tra nsmitted reference range : <=2. The reference range was not used to interpr et this result as jazzy l/abnormal. [facility] AND [id number] 03:02:00 Test Item Value Reference Range Interpretation Comments UA Ketones (test code Negative *NA*(10/14/16 = UA Ketones) 10:02 PM) [facility] AND [id number] 03:02:00 Test Item Value Reference Range Interpretation Comments UA Glucose (test code = UA >=1000 mg/dL Glucose) [facility] AND [id number] 03:02:00 Test Item Value Reference Range Interpretation Comments UA Protein (test code Negative (10/14/16 10:02 = UA Protein) PM) [facility] AND [id number] 03:02:00 Test Item Value Reference Range Interpretation Comments UA pH (test code = UA pH) 7.0 1 5.0-8.0 [facility] AND [id number] 03:02:00 Test Item Value Reference Range Interpretation Comments UA Spec Grav (test code = UA Spec 1.010 1 Grav) [facility] AND [id number] 03:02:00 Test Item Value Reference Range Interpretation Comments UA Turbidity (test code = Clear (10/14/16 10:02 UA Turbidity) PM) [facility] AND [id number] 03:02:00 Test Item Value Reference Range Interpretation Comments UA Color (test code = Light Yellow (10/14/16 UA Color) 10:02 PM) [facility] AND [id number] 03:02:00 Test Item Value Reference Range Interpretation Comments UA Bacteria (test code = UA Occasional /HPF Bacteria) [facility] AND [id number] 03:02:00 Test Item Value Reference Range Interpretation Comments UA Blood (test code = Trace *ABN*(10/14/16 UA Blood) 10:02 PM) [facility] AND [id number] 03:02:00 Test Item Value Reference Range Interpretation Comments UA Urobilinogen (test code = UA 0.2 0.1-1.0 Urobilinogen) [facility] AND [id number] 03:02:00 Test Item Value Reference Range Interpretation Comments UA Bili (test code = Negative *NA*(10/14/16 UA Bili) 10:02 PM) [facility] AND [id number] 03:02:00 Test Item Value Reference Range Interpretation Comments UA Nitrite (test code Negative (10/14/16 10:02 = UA Nitrite) PM) [facility] AND [id number] 03:02:00 Test Item Value Reference Range Interpretation Comments UA WBC (test code = UA WBC) 0-2 /HPF [facility] AND [id number] 03:02:00 Test Item Value Reference Range Interpretation Comments UA Sq Epi (test code = UA Sq Occasional /LPF Epi) [facility] AND [id number] 03:02:00 Test Item Value Reference Range Interpretation Comments UA Leuk Est (test Negative (10/14/16 10:02 code = UA Leuk Est) PM) [facility] AND [id number] 03:02:00 Test Item Value Reference Range Interpretation Comments UA RBC (test code = 0-2 /HPF See_Comment [Automa placido message] The UA RBC) system which ge nerated this result tra nsmitted reference range : <=2. The reference range was not used to interpr et this result as jazzy l/abnormal. [facility] AND [id number] 03:02:00 Test Item Value Reference Range Interpretation Comments UA Ketones (test code Negative *NA*(10/14/16 = UA Ketones) 10:02 PM) [facility] AND [id number] 03:02:00 Test Item Value Reference Range Interpretation Comments UA Glucose (test code = UA >=1000 mg/dL Glucose) [facility] AND [id number] 03:02:00 Test Item Value Reference Range Interpretation Comments UA Protein (test code Negative (10/14/16 10:02 = UA Protein) PM) [facility] AND [id number] 03:02:00 Test Item Value Reference Range Interpretation Comments UA pH (test code = UA pH) 7.0 1 5.0-8.0 [facility] AND [id number] 03:02:00 Test Item Value Reference Range Interpretation Comments UA Spec Grav (test code = UA Spec 1.010 1 Grav) [facility] AND [id number] 03:02:00 Test Item Value Reference Range Interpretation Comments UA Turbidity (test code = Clear (10/14/16 10:02 UA Turbidity) PM) [facility] AND [id number] 03:02:00 Test Item Value Reference Range Interpretation Comments UA Color (test code = Light Yellow (10/14/16 UA Color) 10:02 PM) [facility] AND [id number] 03:02:00 Test Item Value Reference Range Interpretation Comments UA Bacteria (test code = UA Occasional /HPF Bacteria) [facility] AND [id number] 03:02:00 Test Item Value Reference Range Interpretation Comments UA Blood (test code = Trace *ABN*(10/14/16 UA Blood) 10:02 PM) [facility] AND [id number] 03:02:00 Test Item Value Reference Range Interpretation Comments UA Urobilinogen (test code = UA 0.2 0.1-1.0 Urobilinogen) [facility] AND [id number] 03:02:00 Test Item Value Reference Range Interpretation Comments UA Bili (test code = Negative *NA*(10/14/16 UA Bili) 10:02 PM) [facility] AND [id number] 03:02:00 Test Item Value Reference Range Interpretation Comments UA Nitrite (test code Negative (10/14/16 10:02 = UA Nitrite) PM) [facility] AND [id number] 03:02:00 Test Item Value Reference Range Interpretation Comments UA WBC (test code = UA WBC) 0-2 /HPF [facility] [facility] AND [id number] 03:02:00 Test Item Value Reference Range Interpretation Comments UA Sq Epi (test code = UA Sq Occasional /LPF Epi) [facility] AND [id number] 03:02:00 Test Item Value Reference Range Interpretation Comments UA Leuk Est (test Negative (10/14/16 10:02 code = UA Leuk Est) PM) [facility] AND [id number] 03:02:00 Test Item Value Reference Range Interpretation Comments UA RBC (test code = 0-2 /HPF See_Comment [Automa placido message] The UA RBC) system which ge nerated this result tra nsmitted reference range : <=2. The reference range was not used to interpr et this result as jazzy l/abnormal. [facility] AND [id number] 03:02:00 Test Item Value Reference Range Interpretation Comments UA Ketones (test code Negative *NA*(10/14/16 = UA Ketones) 10:02 PM) [facility] AND [id number] 03:02:00 Test Item Value Reference Range Interpretation Comments UA Glucose (test code = UA >=1000 mg/dL Glucose) [facility] AND [id number] 03:02:00 Test Item Value Reference Range Interpretation Comments UA Protein (test code Negative (10/14/16 10:02 = UA Protein) PM) [facility] AND [id number] 03:02:00 Test Item Value Reference Range Interpretation Comments UA Bacteria (test code = UA Occasional /HPF Bacteria) [facility] AND [id number] 03:02:00 Test Item Value Reference Range Interpretation Comments UA pH (test code = UA pH) 7.0 1 5.0-8.0 [facility] AND [id number] 03:02:00 Test Item Value Reference Range Interpretation Comments UA Blood (test code = Trace *ABN*(10/14/16 UA Blood) 10:02 PM) [facility] AND [id number] 03:02:00 Test Item Value Reference Range Interpretation Comments UA Urobilinogen (test code = UA 0.2 0.1-1.0 Urobilinogen) [facility] AND [id number] 03:02:00 Test Item Value Reference Range Interpretation Comments UA Bili (test code = Negative *NA*(10/14/16 UA Bili) 10:02 PM) [facility] AND [id number] 03:02:00 Test Item Value Reference Range Interpretation Comments UA Nitrite (test code Negative (10/14/16 10:02 = UA Nitrite) PM) [facility] AND [id number] 03:02:00 Test Item Value Reference Range Interpretation Comments UA WBC (test code = UA WBC) 0-2 /HPF [facility] AND [id number] 03:02:00 Test Item Value Reference Range Interpretation Comments UA Sq Epi (test code = UA Sq Occasional /LPF Epi) [facility] AND [id number] 03:02:00 Test Item Value Reference Range Interpretation Comments UA Leuk Est (test Negative (10/14/16 10:02 code = UA Leuk Est) PM) [facility] AND [id number] 03:02:00 Test Item Value Reference Range Interpretation Comments UA RBC (test code = 0-2 /HPF See_Comment [Automa placido message] The UA RBC) system which ge nerated this result tra nsmitted reference range : <=2. The reference range was not used to interpr et this result as jazzy l/abnormal. [facility] AND [id number] 03:02:00 Test Item Value Reference Range Interpretation Comments UA Ketones (test code Negative *NA*(10/14/16 = UA Ketones) 10:02 PM) [facility] AND [id number] 03:02:00 Test Item Value Reference Range Interpretation Comments UA Glucose (test code = UA >=1000 mg/dL Glucose) [facility] AND [id number] 03:02:00 Test Item Value Reference Range Interpretation Comments UA Spec Grav (test code = UA Spec 1.010 1 Grav) [facility] AND [id number] 03:02:00 Test Item Value Reference Range Interpretation Comments UA Protein (test code Negative (10/14/16 10:02 = UA Protein) PM) [facility] AND [id number] 03:02:00 Test Item Value Reference Range Interpretation Comments UA pH (test code = UA pH) 7.0 1 5.0-8.0 [facility] AND [id number] 03:02:00 Test Item Value Reference Range Interpretation Comments UA Spec Grav (test code = UA Spec 1.010 1 Grav) [facility] AND [id number] 03:02:00 Test Item Value Reference Range Interpretation Comments UA Turbidity (test code = Clear (10/14/16 10:02 UA Turbidity) PM) [facility] AND [id number] 03:02:00 Test Item Value Reference Range Interpretation Comments UA Color (test code = Light Yellow (10/14/16 UA Color) 10:02 PM) [facility] AND [id number] 03:02:00 Test Item Value Reference Range Interpretation Comments UA Turbidity (test code = Clear (10/14/16 10:02 UA Turbidity) PM) [facility] AND [id number] 03:02:00 Test Item Value Reference Range Interpretation Comments UA Color (test code = Light Yellow (10/14/16 UA Color) 10:02 PM) [facility] AND [id number] 03:02:00 Test Item Value Reference Range Interpretation Comments UA Bacteria (test code = UA Occasional /HPF Bacteria) [facility] AND [id number] 03:02:00 Test Item Value Reference Range Interpretation Comments UA Blood (test code = Trace *ABN*(10/14/16 UA Blood) 10:02 PM) [facility] AND [id number] 03:02:00 Test Item Value Reference Range Interpretation Comments UA Urobilinogen (test code = UA 0.2 0.1-1.0 Urobilinogen) [facility] AND [id number] 03:02:00 Test Item Value Reference Range Interpretation Comments UA Bili (test code = Negative *NA*(10/14/16 UA Bili) 10:02 PM) [facility] AND [id number] 03:02:00 Test Item Value Reference Range Interpretation Comments UA Nitrite (test code Negative (10/14/16 10:02 = UA Nitrite) PM) [facility] AND [id number] 03:02:00 Test Item Value Reference Range Interpretation Comments UA WBC (test code = UA WBC) 0-2 /HPF [facility] AND [id number] 03:02:00 Test Item Value Reference Range Interpretation Comments UA Sq Epi (test code = UA Sq Occasional /LPF Epi) [facility] AND [id number] 03:02:00 Test Item Value Reference Range Interpretation Comments UA Leuk Est (test Negative (10/14/16 10:02 code = UA Leuk Est) PM) [facility] AND [id number] 03:02:00 Test Item Value Reference Range Interpretation Comments UA RBC (test code = 0-2 /HPF See_Comment [Automa placido message] The UA RBC) system which ge nerated this result tra nsmitted reference range : <=2. The reference range was not used to interpr et this result as jazzy l/abnormal. [facility] AND [id number] 03:02:00 Test Item Value Reference Range Interpretation Comments UA Ketones (test code Negative *NA*(10/14/16 = UA Ketones) 10:02 PM) [facility] AND [id number] 03:02:00 Test Item Value Reference Range Interpretation Comments UA Glucose (test code = UA >=1000 mg/dL Glucose) [facility] AND [id number] 03:02:00 Test Item Value Reference Range Interpretation Comments UA Protein (test code Negative (10/14/16 10:02 = UA Protein) PM) [facility] AND [id number] 03:02:00 Test Item Value Reference Range Interpretation Comments UA pH (test code = UA pH) 7.0 1 5.0-8.0 [facility] AND [id number] 03:02:00 Test Item Value Reference Range Interpretation Comments UA Spec Grav (test code = UA Spec 1.010 1 Grav) [facility] AND [id number] 03:02:00 Test Item Value Reference Range Interpretation Comments UA Turbidity (test code = Clear (10/14/16 10:02 UA Turbidity) PM) [facility] AND [id number] 03:02:00 Test Item Value Reference Range Interpretation Comments UA Color (test code = Light Yellow (10/14/16 UA Color) 10:02 PM) [facility] AND [id number] 03:02:00 Test Item Value Reference Range Interpretation Comments UA Bacteria (test code = UA Occasional /HPF Bacteria) [facility] AND [id number] 03:02:00 Test Item Value Reference Range Interpretation Comments UA Blood (test code = Trace *ABN*(10/14/16 UA Blood) 10:02 PM) [facility] AND [id number] 03:02:00 Test Item Value Reference Range Interpretation Comments UA Urobilinogen (test code = UA 0.2 0.1-1.0 Urobilinogen) [facility] AND [id number] 03:02:00 Test Item Value Reference Range Interpretation Comments UA Bili (test code = Negative *NA*(10/14/16 UA Bili) 10:02 PM) [facility] AND [id number] 03:02:00 Test Item Value Reference Range Interpretation Comments UA Nitrite (test code Negative (10/14/16 10:02 = UA Nitrite) PM) [facility] AND [id number] 03:02:00 Test Item Value Reference Range Interpretation Comments UA WBC (test code = UA WBC) 0-2 /HPF [facility] AND [id number] 03:02:00 Test Item Value Reference Range Interpretation Comments UA Sq Epi (test code = UA Sq Occasional /LPF Epi) [facility] AND [id number] 03:02:00 Test Item Value Reference Range Interpretation Comments UA Leuk Est (test Negative (10/14/16 10:02 code = UA Leuk Est) PM) [facility] AND [id number] 03:02:00 Test Item Value Reference Range Interpretation Comments UA RBC (test code = 0-2 /HPF See_Comment [Automa placido message] The UA RBC) system which ge nerated this result tra nsmitted reference range : <=2. The reference range was not used to interpr et this result as jazzy l/abnormal. [facility] AND [id number] 03:02:00 Test Item Value Reference Range Interpretation Comments UA Ketones (test code Negative *NA*(10/14/16 = UA Ketones) 10:02 PM) [facility] AND [id number] 03:02:00 Test Item Value Reference Range Interpretation Comments UA Glucose (test code = UA >=1000 mg/dL Glucose) [facility] AND [id number] 03:02:00 Test Item Value Reference Range Interpretation Comments UA Protein (test code Negative (10/14/16 10:02 = UA Protein) PM) [facility] AND [id number] 03:02:00 Test Item Value Reference Range Interpretation Comments UA pH (test code = UA pH) 7.0 1 5.0-8.0 [facility] AND [id number] 03:02:00 Test Item Value Reference Range Interpretation Comments UA Spec Grav (test code = UA Spec 1.010 1 Grav) [facility] AND [id number] 03:02:00 Test Item Value Reference Range Interpretation Comments UA Turbidity (test code = Clear (10/14/16 10:02 UA Turbidity) PM) [facility] AND [id number] 03:02:00 Test Item Value Reference Range Interpretation Comments UA Color (test code = Light Yellow (10/14/16 UA Color) 10:02 PM) [facility] AND [id number] 03:02:00 Test Item Value Reference Range Interpretation Comments UA Bacteria (test code = UA Occasional /HPF Bacteria) [facility] AND [id number] 03:02:00 Test Item Value Reference Range Interpretation Comments UA Blood (test code = Trace *ABN*(10/14/16 UA Blood) 10:02 PM) [facility] AND [id number] 03:02:00 Test Item Value Reference Range Interpretation Comments UA Urobilinogen (test code = UA 0.2 0.1-1.0 Urobilinogen) [facility] AND [id number] 03:02:00 Test Item Value Reference Range Interpretation Comments UA Bili (test code = Negative *NA*(10/14/16 UA Bili) 10:02 PM) [facility] AND [id number] 03:02:00 Test Item Value Reference Range Interpretation Comments UA Nitrite (test code Negative (10/14/16 10:02 = UA Nitrite) PM) [facility] AND [id number] 03:02:00 Test Item Value Reference Range Interpretation Comments UA WBC (test code = UA WBC) 0-2 /HPF [facility] AND [id number] 03:02:00 Test Item Value Reference Range Interpretation Comments UA Sq Epi (test code = UA Sq Occasional /LPF Epi) [facility] AND [id number] 03:02:00 Test Item Value Reference Range Interpretation Comments UA Leuk Est (test Negative (10/14/16 10:02 code = UA Leuk Est) PM) [facility] AND [id number] 03:02:00 Test Item Value Reference Range Interpretation Comments UA RBC (test code = 0-2 /HPF See_Comment [Automa placido message] The UA RBC) system which ge nerated this result tra nsmitted reference range : <=2. The reference range was not used to interpr et this result as jazzy l/abnormal. [facility] AND [id number] 03:02:00 Test Item Value Reference Range Interpretation Comments UA Ketones (test code Negative *NA*(10/14/16 = UA Ketones) 10:02 PM) [facility] AND [id number] 03:02:00 Test Item Value Reference Range Interpretation Comments UA Glucose (test code = UA >=1000 mg/dL Glucose) [facility] AND [id number] 03:02:00 Test Item Value Reference Range Interpretation Comments UA Protein (test code Negative (10/14/16 10:02 = UA Protein) PM) [facility] AND [id number] 03:02:00 Test Item Value Reference Range Interpretation Comments UA pH (test code = UA pH) 7.0 1 5.0-8.0 [facility] AND [id number] 03:02:00 Test Item Value Reference Range Interpretation Comments UA Spec Grav (test code = UA Spec 1.010 1 Grav) [facility] AND [id number] 03:02:00 Test Item Value Reference Range Interpretation Comments UA Turbidity (test code = Clear (10/14/16 10:02 UA Turbidity) PM) [facility] AND [id number] 03:02:00 Test Item Value Reference Range Interpretation Comments UA Color (test code = Light Yellow (10/14/16 UA Color) 10:02 PM) [facility] AND [id number] 03:02:00 Test Item Value Reference Range Interpretation Comments UA Bacteria (test code = UA Occasional /HPF Bacteria) [facility] AND [id number] 03:02:00 Test Item Value Reference Range Interpretation Comments UA Blood (test code = Trace *ABN*(10/14/16 UA Blood) 10:02 PM) [facility] AND [id number] 03:02:00 Test Item Value Reference Range Interpretation Comments UA Urobilinogen (test code = UA 0.2 0.1-1.0 Urobilinogen) [facility] AND [id number] 03:02:00 Test Item Value Reference Range Interpretation Comments UA Bili (test code = Negative *NA*(10/14/16 UA Bili) 10:02 PM) [facility] AND [id number] 03:02:00 Test Item Value Reference Range Interpretation Comments UA Nitrite (test code Negative (10/14/16 10:02 = UA Nitrite) PM) [facility] AND [id number] 03:02:00 Test Item Value Reference Range Interpretation Comments UA WBC (test code = UA WBC) 0-2 /HPF [facility] AND [id number] 03:02:00 Test Item Value Reference Range Interpretation Comments UA Sq Epi (test code = UA Sq Occasional /LPF Epi) [facility] AND [id number] 03:02:00 Test Item Value Reference Range Interpretation Comments UA Leuk Est (test Negative (10/14/16 10:02 code = UA Leuk Est) PM) [facility] AND [id number] 03:02:00 Test Item Value Reference Range Interpretation Comments UA RBC (test code = 0-2 /HPF See_Comment [Automa placido message] The UA RBC) system which ge nerated this result tra nsmitted reference range : <=2. The reference range was not used to interpr et this result as jazzy l/abnormal. [facility] AND [id number] 03:02:00 Test Item Value Reference Range Interpretation Comments UA Ketones (test code Negative *NA*(10/14/16 = UA Ketones) 10:02 PM) [facility] AND [id number] 03:02:00 Test Item Value Reference Range Interpretation Comments UA Glucose (test code = UA >=1000 mg/dL Glucose) [facility] AND [id number] 03:02:00 Test Item Value Reference Range Interpretation Comments UA Protein (test code Negative (10/14/16 10:02 = UA Protein) PM) [facility] AND [id number] 03:02:00 Test Item Value Reference Range Interpretation Comments UA pH (test code = UA pH) 7.0 1 5.0-8.0 [facility] AND [id number] 03:02:00 Test Item Value Reference Range Interpretation Comments UA Spec Grav (test code = UA Spec 1.010 1 Grav) [facility] AND [id number] 03:02:00 Test Item Value Reference Range Interpretation Comments UA Turbidity (test code = Clear (10/14/16 10:02 UA Turbidity) PM) [facility] AND [id number] 03:02:00 Test Item Value Reference Range Interpretation Comments UA Color (test code = Light Yellow (10/14/16 UA Color) 10:02 PM) [id number] 22:32:00 Test Item Value Reference Range Interpretation Comments Lactic Acid Lvl (test code = Lactic 1.6 0.5-2.2 Acid Lvl) [facility]2015-11-21 22:32:00 Test Item Value Reference Range Interpretation Comments Lactic Acid Lvl (test code = Lactic 1.6 0.5-2.2 Acid Lvl) [facility]2015-11-21 22:32:00 Test Item Value Reference Range Interpretation Comments Lactic Acid Lvl (test code = Lactic 1.6 0.5-2.2 Acid Lvl) [facility]2015-11-21 22:32:00 Test Item Value Reference Range Interpretation Comments Lactic Acid Lvl (test code = Lactic 1.6 0.5-2.2 Acid Lvl) [facility]2015-11-21 22:32:00 Test Item Value Reference Range Interpretation Comments Lactic Acid Lvl (test code = Lactic 1.6 0.5-2.2 Acid Lvl) [facility]2015-11-21 22:32:00 Test Item Value Reference Range Interpretation Comments Lactic Acid Lvl (test code = Lactic 1.6 0.5-2.2 Acid Lvl) [facility]2015-11-21 22:32:00 Test Item Value Reference Range Interpretation Comments Lactic Acid Lvl (test code = Lactic 1.6 0.5-2.2 Acid Lvl) [facility]2015-11-21 22:32:00 Test Item Value Reference Range Interpretation Comments Lactic Acid Lvl (test code = Lactic 1.6 0.5-2.2 Acid Lvl) [facility] AND [id number] 19:02:00 Test Item Value Reference Range Interpretation Comments UA pH (test code = UA pH) 6.0 5.0-8.0 [facility] AND [id number] 19:02:00 Test Item Value Reference Range Interpretation Comments UA Spec Grav (test code = UA Spec Grav) 1.020 [facility] AND [id number] 19:02:00 Test Item Value Reference Range Interpretation Comments UA Turbidity (test code = Clear (06/24/15 1:02 UA Turbidity) PM) [facility] AND [id number] 19:02:00 Test Item Value Reference Range Interpretation Comments UA Leuk Est (test code Small *ABN*(06/24/15 = UA Leuk Est) 1:02 PM) [facility] AND [id number] 19:02:00 Test Item Value Reference Range Interpretation Comments UA Protein (test code = UA Negative mg/dL Protein) [facility] AND [id number] 19:02:00 Test Item Value Reference Range Interpretation Comments UA Sq Epi (test code = UA Sq Occasional /LPF Epi) [facility] AND [id number] 19:02:00 Test Item Value Reference Range Interpretation Comments UA Nitrite (test code Negative (06/24/15 1:02 = UA Nitrite) PM) [facility] AND [id number] 19:02:00 Test Item Value Reference Range Interpretation Comments UA Bili (test code = Negative *NA*(06/24/15 UA Bili) 1:02 PM) [facility] AND [id number] 19:02:00 Test Item Value Reference Range Interpretation Comments UA Blood (test code = Small *ABN*(06/24/15 UA Blood) 1:02 PM) [facility] AND [id number] 19:02:00 Test Item Value Reference Range Interpretation Comments UA Ketones (test code = UA Negative mg/dL Ketones) [facility] AND [id number] 19:02:00 Test Item Value Reference Range Interpretation Comments UA Glucose (test code = UA Glucose) 150 mg/dL [facility] AND [id number] 19:02:00 Test Item Value Reference Range Interpretation Comments Occult Bld Stl (test Negative (06/24/15 1:02 code = Occult Bld Stl) PM) [id number] 19:02:00 Test Item Value Reference Range Interpretation Comments Magnesium Lvl (test code = Magnesium 2.0 1.8-2.4 Lvl) [facility] [id number] 19:02:00 Test Item Value Reference Range Interpretation Comments B/C Ratio (test code = B/C Ratio) 14 6-25 [facility]2015-11-21 19:02:00 Test Item Value Reference Range Interpretation Comments AGAP (test code = AGAP) 11.8 10.0-20.0 [facility] [id number] 19:02:00 Test Item Value Reference Range Interpretation Comments Globulin (test code = Globulin) 4.8 2.0-4.0 [facility]2015-11-21 19:02:00 Test Item Value Reference Range Interpretation Comments A/G Ratio (test code = A/G Ratio) 0.7 0.7-1.6 [place] [id number] 19:02:00 Test Item Value Reference Range Interpretation Comments eGFR (test code = eGFR) 100 [place] [id number] 19:02:00 Test Item Value Reference Range Interpretation Comments Alk Phos (test code = Alk Phos) 82 39-136 [place] [id number] 19:02:00 Test Item Value Reference Range Interpretation Comments Bili Total (test code = Bili Total) 0.3 0.2-1.3 [facility]2015-11-21 19:02:00 Test Item Value Reference Range Interpretation Comments Albumin Lvl (test code = Albumin Lvl) 3.4 3.5-5.0 [facility]2015-11-21 19:02:00 Test Item Value Reference Range Interpretation Comments AST (test code = AST) 18 See_Comment [Auto mated message] The system which ge nerated this result transmit placido reference range : <=37. The reference range was not used to interpr et this result as jazzy l/abnormal. [facility]2015-11-21 19:02:00 Test Item Value Reference Range Interpretation Comments ALT (test code = ALT) 34 See_Comment [Auto mated message] The system which ge nerated this result transmit placido reference range : <=65. The reference range was not used to interpr et this result as jazzy l/abnormal. [facility]2015-11-21 19:02:00 Test Item Value Reference Range Interpretation Comments BUN (test code = BUN) 10 7-22 [place] [id number] 19:02:00 Test Item Value Reference Range Interpretation Comments Chloride Lvl (test code = Chloride Lvl) 104 95-109 [facility]2015-11-21 19:02:00 Test Item Value Reference Range Interpretation Comments Creatinine Lvl (test code = Creatinine 0.70 0.50-1.40 Lvl) [facility]2015-11-21 19:02:00 Test Item Value Reference Range Interpretation Comments Potassium Lvl (test code = Potassium 3.8 3.5-5.1 Lvl) [facility]2015-11-21 19:02:00 Test Item Value Reference Range Interpretation Comments Sodium Lvl (test code = Sodium Lvl) 138 135-145 [facility]2015-11-21 19:02:00 Test Item Value Reference Range Interpretation Comments Glucose Lvl (test code = Glucose Lvl) 110 70-99 [facility]2015-11-21 19:02:00 Test Item Value Reference Range Interpretation Comments Calcium Lvl (test code = Calcium Lvl) 9.0 8.5-10.5 [facility]2015-11-21 19:02:00 Test Item Value Reference Range Interpretation Comments CO2 (test code = CO2) 26 24-32 [facility] [facility]2015-11-21 19:02:00 Test Item Value Reference Range Interpretation Comments Total Protein (test code = Total 8.2 6.4-8.4 Protein) [facility]2015-11-21 19:02:00 Test Item Value Reference Range Interpretation Comments Lipase Lvl (test code = Lipase Lvl) 107 73-393 [id number] 19:02:00 Test Item Value Reference Range Interpretation Comments Segs (test code = Segs) 61.2 45.0-75.0 [id number] 19:02:00 Test Item Value Reference Range Interpretation Comments Lymphocytes (test code = Lymphocytes) 26.6 20.0-40.0 [facility] Dent[id number] 19:02:00 Test Item Value Reference Range Interpretation Comments Basophils # (test code 0.1 See_Comment [Aut omated message] The = Basophils #) system which generated this result tra nsmitted reference range : <=0.2. The reference r severo was not used to int erpret this result as normal/abnormal . [facility] [id number] 19:02:00 Test Item Value Reference Range Interpretation Comments Eosinophils # (test code 0.6 See_Comment [A utomated message] The = Eosinophils #) system whic h generated this result tra nsmitted reference range : <=0.5. The reference r severo was not used to int erpret this result as normal/abnormal . [facility] DentonYohqcyhCAHGKWVOHE4565-87-76 19:02:00 Test Item Value Reference Range Interpretation Comments Basophils (test code = 0.8 See_Comment [Aut omated message] The Basophils) system which ge nerated this result tra nsmitted reference range : <=1.0. The reference r severo was not used to int erpret this result as normal/abnormal . [facility] DentonOwyvlmpBVBNOOIABB9860-43-93 19:02:00 Test Item Value Reference Range Interpretation Comments Monocytes (test code = Monocytes) 6.0 2.0-12.0 [facility] DentonZsaekxfXERKGPKDYD2277-37-75 19:02:00 Test Item Value Reference Range Interpretation Comments Segs-Bands # (test code = Segs-Bands #) 6.6 1.5-8.1 [facility] DentonFfmoyrdAEKSFMUVEN2548-07-16 19:02:00 Test Item Value Reference Range Interpretation Comments Lymphocytes # (test code = Lymphocytes 2.9 1.0-5.5 #) [facility] DentonJaazsiuUBRZBHMOKU1187-78-45 19:02:00 Test Item Value Reference Range Interpretation Comments Eosinophils (test code = 5.4 See_Comment [A utomated message] The Eosinophils) system which ge nerated this result tra nsmitted reference range : <=4.0. The reference r severo was not used to int erpret this result as normal/abnormal . [facility] Dent[id number] 19:02:00 Test Item Value Reference Range Interpretation Comments Monocytes # (test code 0.6 See_Comment [Aut omated message] The = Monocytes #) system which generated this result tra nsmitted reference range : <=0.8. The reference r severo was not used to int erpret this result as normal/abnormal . [facility] DentonSlvabxiFFQBCNWWCT3798-56-52 19:02:00 Test Item Value Reference Range Interpretation Comments MPV (test code = MPV) 9.8 7.4-10.4 [facility] DentonEcgncudZQZNAIPIFQ8307-20-75 19:02:00 Test Item Value Reference Range Interpretation Comments Platelet (test code = Platelet) 226 133-450 [facility] [id number] 19:02:00 Test Item Value Reference Range Interpretation Comments RDW (test code = RDW) 12.4 11.5-14.5 [facility] DentonKrmsgqdZXRPKZWJKQ7525-27-98 19:02:00 Test Item Value Reference Range Interpretation Comments MCHC (test code = MCHC) 32.3 32.0-36.0 [facility] [id number] 19:02:00 Test Item Value Reference Range Interpretation Comments MCV (test code = MCV) 87.5 80.0-98.0 [facility] DentonDzbdkfxCKZAFNWIJN2167-59-38 19:02:00 Test Item Value Reference Range Interpretation Comments MCH (test code = MCH) 28.2 pg 27.0-31.0 [facility] Dent[id number] 19:02:00 Test Item Value Reference Range Interpretation Comments Hct (test code = Hct) 43.4 36.0-48.0 [facility] DentonVwqskdbGUQEZQVYEW7924-70-69 19:02:00 Test Item Value Reference Range Interpretation Comments Hgb (test code = Hgb) 14.0 12.0-16.0 [facility] DentonLoynbohQMUVRAWXIE9532-16-68 19:02:00 Test Item Value Reference Range Interpretation Comments RBC (test code = RBC) 4.97 4.20-5.40 [facility] DentonOzdinmfAGKSMTTQUO7204-36-46 19:02:00 Test Item Value Reference Range Interpretation Comments WBC (test code = WBC) 10.8 3.7-10.4 [facility] D[id number] 19:02:00 Test Item Value Reference Range Interpretation Comments PTT (test code = PTT) 26.3 s 22.9-35.8 [facility] DentonKifikwaUKJILXIWFB7678-83-65 19:02:00 Test Item Value Reference Range Interpretation Comments INR (test code = INR) 0.98 0.85-1.17 [facility] DentonMtpqzfmMMHDNGMFEM3621-38-15 19:02:00 Test Item Value Reference Range Interpretation Comments PT (test code = PT) 13.3 s 12.0-14.7 [facility] AND [id number] 19:02:00 Test Item Value Reference Range Interpretation Comments UA Urobilinogen (test code = UA <=1.0 mg/dL 0.1-1.0 Urobilinogen) [facility] [id number] 19:02:00 Test Item Value Reference Range Interpretation Comments UA Color (test code = UA Color) Colorless [facility] AND [id number] 19:02:00 Test Item Value Reference Range Interpretation Comments UA WBC (test code = 6 See_Comment [Automa placido message] The UA WBC) system which ge nerated this result transmit placido reference range : <=5. The reference range was not used to interpr et this result as jazzy l/abnormal. [facility] AND [id number] 19:02:00 Test Item Value Reference Range Interpretation Comments UA Bacteria (test code = UA Occasional /HPF Bacteria) [facility] AND [id number] 19:02:00 Test Item Value Reference Range Interpretation Comments UA RBC (test code = 1 See_Comment [Automa placido message] The UA RBC) system which ge nerated this result transmit placido reference range : <=2. The reference range was not used to interpr et this result as jazzy l/abnormal. [facility] AND [id number] 19:02:00 Test Item Value Reference Range Interpretation Comments UA pH (test code = UA pH) 6.0 5.0-8.0 [facility] AND [id number] 19:02:00 Test Item Value Reference Range Interpretation Comments UA Spec Grav (test code = UA Spec Grav) 1.020 [facility] AND [id number] 19:02:00 Test Item Value Reference Range Interpretation Comments UA Turbidity (test code = Clear (06/24/15 1:02 UA Turbidity) PM) [facility] AND [id number] 19:02:00 Test Item Value Reference Range Interpretation Comments UA Leuk Est (test code Small *ABN*(06/24/15 = UA Leuk Est) 1:02 PM) [facility] AND [id number] 19:02:00 Test Item Value Reference Range Interpretation Comments UA Protein (test code = UA Negative mg/dL Protein) [facility] AND [id number] 19:02:00 Test Item Value Reference Range Interpretation Comments UA Sq Epi (test code = UA Sq Occasional /LPF Epi) [facility] AND [id number] 19:02:00 Test Item Value Reference Range Interpretation Comments UA Nitrite (test code Negative (06/24/15 1:02 = UA Nitrite) PM) [facility] AND [id number] 19:02:00 Test Item Value Reference Range Interpretation Comments UA Bili (test code = Negative *NA*(06/24/15 UA Bili) 1:02 PM) [facility] AND [id number] 19:02:00 Test Item Value Reference Range Interpretation Comments UA Blood (test code = Small *ABN*(06/24/15 UA Blood) 1:02 PM) [facility] AND [id number] 19:02:00 Test Item Value Reference Range Interpretation Comments UA Ketones (test code = UA Negative mg/dL Ketones) [facility] AND [id number] 19:02:00 Test Item Value Reference Range Interpretation Comments UA Glucose (test code = UA Glucose) 150 mg/dL [facility] AND [id number] 19:02:00 Test Item Value Reference Range Interpretation Comments Occult Bld Stl (test Negative (06/24/15 1:02 code = Occult Bld Stl) PM) [facility]2015-11-21 19:02:00 Test Item Value Reference Range Interpretation Comments Magnesium Lvl (test code = Magnesium 2.0 1.8-2.4 Lvl) [facility]2015-11-21 19:02:00 Test Item Value Reference Range Interpretation Comments B/C Ratio (test code = B/C Ratio) 14 6-25 [facility]2015-11-21 19:02:00 Test Item Value Reference Range Interpretation Comments AGAP (test code = AGAP) 11.8 10.0-20.0 [facility]2015-11-21 19:02:00 Test Item Value Reference Range Interpretation Comments Globulin (test code = Globulin) 4.8 2.0-4.0 [facility]2015-11-21 19:02:00 Test Item Value Reference Range Interpretation Comments A/G Ratio (test code = A/G Ratio) 0.7 0.7-1.6 [facility]2015-11-21 19:02:00 Test Item Value Reference Range Interpretation Comments eGFR (test code = eGFR) 100 [facility]2015-11-21 19:02:00 Test Item Value Reference Range Interpretation Comments Alk Phos (test code = Alk Phos) 82 39-136 [facility]2015-11-21 19:02:00 Test Item Value Reference Range Interpretation Comments Bili Total (test code = Bili Total) 0.3 0.2-1.3 [facility]2015-11-21 19:02:00 Test Item Value Reference Range Interpretation Comments Albumin Lvl (test code = Albumin Lvl) 3.4 3.5-5.0 [facility]2015-11-21 19:02:00 Test Item Value Reference Range Interpretation Comments AST (test code = AST) 18 See_Comment [Auto mated message] The system which ge nerated this result transmit placido reference range : <=37. The reference range was not used to interpr et this result as jazzy l/abnormal. [facility]2015-11-21 19:02:00 Test Item Value Reference Range Interpretation Comments ALT (test code = ALT) 34 See_Comment [Auto mated message] The system which ge nerated this result transmit placido reference range : <=65. The reference range was not used to interpr et this result as jazzy l/abnormal. [facility]2015-11-21 19:02:00 Test Item Value Reference Range Interpretation Comments BUN (test code = BUN) 10 7-22 [facility]2015-11-21 19:02:00 Test Item Value Reference Range Interpretation Comments Chloride Lvl (test code = Chloride Lvl) 104 95-109 [facility]2015-11-21 19:02:00 Test Item Value Reference Range Interpretation Comments Creatinine Lvl (test code = Creatinine 0.70 0.50-1.40 Lvl) [facility]2015-11-21 19:02:00 Test Item Value Reference Range Interpretation Comments Potassium Lvl (test code = Potassium 3.8 3.5-5.1 Lvl) [facility]2015-11-21 19:02:00 Test Item Value Reference Range Interpretation Comments Sodium Lvl (test code = Sodium Lvl) 138 135-145 [facility]2015-11-21 19:02:00 Test Item Value Reference Range Interpretation Comments Glucose Lvl (test code = Glucose Lvl) 110 70-99 [facility]2015-11-21 19:02:00 Test Item Value Reference Range Interpretation Comments Calcium Lvl (test code = Calcium Lvl) 9.0 8.5-10.5 [facility]2015-11-21 19:02:00 Test Item Value Reference Range Interpretation Comments CO2 (test code = CO2) 26 24-32 [facility]2015-11-21 19:02:00 Test Item Value Reference Range Interpretation Comments Total Protein (test code = Total 8.2 6.4-8.4 Protein) [facility]2015-11-21 19:02:00 Test Item Value Reference Range Interpretation Comments Lipase Lvl (test code = Lipase Lvl) 107 73-393 [facility]entonQegpbkbXBSPUAAEUZ9483-03-42 19:02:00 Test Item Value Reference Range Interpretation Comments Segs (test code = Segs) 61.2 45.0-75.0 [facility] [id number] 19:02:00 Test Item Value Reference Range Interpretation Comments Lymphocytes (test code = Lymphocytes) 26.6 20.0-40.0 [facility] Dent[id number] 19:02:00 Test Item Value Reference Range Interpretation Comments Basophils # (test code 0.1 See_Comment [Aut omated message] The = Basophils #) system which generated this result tra nsmitted reference range : <=0.2. The reference r severo was not used to int erpret this result as normal/abnormal . [facility] [id number] 19:02:00 Test Item Value Reference Range Interpretation Comments Eosinophils # (test code 0.6 See_Comment [A utomated message] The = Eosinophils #) system whic h generated this result tra nsmitted reference range : <=0.5. The reference r severo was not used to int erpret this result as normal/abnormal . [facility] [id number] 19:02:00 Test Item Value Reference Range Interpretation Comments Basophils (test code = 0.8 See_Comment [Aut omated message] The Basophils) system which ge nerated this result tra nsmitted reference range : <=1.0. The reference r severo was not used to int erpret this result as normal/abnormal . [facility] DentonNcwmwrwGXFCIUHBBG0484-45-08 19:02:00 Test Item Value Reference Range Interpretation Comments Monocytes (test code = Monocytes) 6.0 2.0-12.0 [facility] DentonCucydnqKMHHFFOHED4430-09-63 19:02:00 Test Item Value Reference Range Interpretation Comments Segs-Bands # (test code = Segs-Bands #) 6.6 1.5-8.1 [facility] [id number] 19:02:00 Test Item Value Reference Range Interpretation Comments Lymphocytes # (test code = Lymphocytes 2.9 1.0-5.5 #) [facility] [id number] 19:02:00 Test Item Value Reference Range Interpretation Comments Eosinophils (test code = 5.4 See_Comment [A utomated message] The Eosinophils) system which ge nerated this result tra nsmitted reference range : <=4.0. The reference r severo was not used to int erpret this result as normal/abnormal . [facility] DentonPzvrhuaNUYJKTYRHP2393-55-10 19:02:00 Test Item Value Reference Range Interpretation Comments Monocytes # (test code 0.6 See_Comment [Aut omated message] The = Monocytes #) system which generated this result tra nsmitted reference range : <=0.8. The reference r severo was not used to int erpret this result as normal/abnormal . [facility] [id number] 19:02:00 Test Item Value Reference Range Interpretation Comments MPV (test code = MPV) 9.8 7.4-10.4 [facility] Dent[id number] 19:02:00 Test Item Value Reference Range Interpretation Comments Platelet (test code = Platelet) 226 133-450 [facility] [id number] 19:02:00 Test Item Value Reference Range Interpretation Comments RDW (test code = RDW) 12.4 11.5-14.5 [facility] [id number] 19:02:00 Test Item Value Reference Range Interpretation Comments MCHC (test code = MCHC) 32.3 32.0-36.0 [facility] [id number] 19:02:00 Test Item Value Reference Range Interpretation Comments MCV (test code = MCV) 87.5 80.0-98.0 [facility] D[id number] 19:02:00 Test Item Value Reference Range Interpretation Comments MCH (test code = MCH) 28.2 pg 27.0-31.0 [facility] [id number] 19:02:00 Test Item Value Reference Range Interpretation Comments Hct (test code = Hct) 43.4 36.0-48.0 [facility] [id number] 19:02:00 Test Item Value Reference Range Interpretation Comments Hgb (test code = Hgb) 14.0 12.0-16.0 [facility] DentonCegfhfxVESDHCHQQY4812-02-15 19:02:00 Test Item Value Reference Range Interpretation Comments RBC (test code = RBC) 4.97 4.20-5.40 [facility] D[id number] 19:02:00 Test Item Value Reference Range Interpretation Comments WBC (test code = WBC) 10.8 3.7-10.4 [facility] DentonEmzpgbnOUVJHCQUSK7532-25-01 19:02:00 Test Item Value Reference Range Interpretation Comments PTT (test code = PTT) 26.3 s 22.9-35.8 [facility] [id number] 19:02:00 Test Item Value Reference Range Interpretation Comments INR (test code = INR) 0.98 0.85-1.17 [facility] [id number] 19:02:00 Test Item Value Reference Range Interpretation Comments PT (test code = PT) 13.3 s 12.0-14.7 [facility] AND [id number] 19:02:00 Test Item Value Reference Range Interpretation Comments UA Urobilinogen (test code = UA <=1.0 mg/dL 0.1-1.0 Urobilinogen) [facility] AND [id number] 19:02:00 Test Item Value Reference Range Interpretation Comments UA Color (test code = UA Color) Colorless [facility] AND [id number] 19:02:00 Test Item Value Reference Range Interpretation Comments UA WBC (test code = 6 See_Comment [Automa placido message] The UA WBC) system which ge nerated this result transmit placido reference range : <=5. The reference range was not used to interpr et this result as jazzy l/abnormal. [facility] AND [id number] 19:02:00 Test Item Value Reference Range Interpretation Comments UA Bacteria (test code = UA Occasional /HPF Bacteria) [facility] AND [id number] 19:02:00 Test Item Value Reference Range Interpretation Comments UA RBC (test code = 1 See_Comment [Automa placido message] The UA RBC) system which ge nerated this result transmit placido reference range : <=2. The reference range was not used to interpr et this result as jazzy l/abnormal. [facility] AND [id number] 19:02:00 Test Item Value Reference Range Interpretation Comments UA pH (test code = UA pH) 6.0 5.0-8.0 [facility] AND [id number] 19:02:00 Test Item Value Reference Range Interpretation Comments UA Spec Grav (test code = UA Spec Grav) 1.020 [facility] AND [id number] 19:02:00 Test Item Value Reference Range Interpretation Comments UA Turbidity (test code = Clear (06/24/15 1:02 UA Turbidity) PM) [facility] AND [id number] 19:02:00 Test Item Value Reference Range Interpretation Comments UA Leuk Est (test code Small *ABN*(06/24/15 = UA Leuk Est) 1:02 PM) [facility] AND [id number] 19:02:00 Test Item Value Reference Range Interpretation Comments UA Protein (test code = UA Negative mg/dL Protein) [facility] AND [id number] 19:02:00 Test Item Value Reference Range Interpretation Comments UA Sq Epi (test code = UA Sq Occasional /LPF Epi) [facility] AND [id number] 19:02:00 Test Item Value Reference Range Interpretation Comments UA Nitrite (test code Negative (06/24/15 1:02 = UA Nitrite) PM) [facility] AND [id number] 19:02:00 Test Item Value Reference Range Interpretation Comments UA Bili (test code = Negative *NA*(06/24/15 UA Bili) 1:02 PM) [facility] AND [id number] 19:02:00 Test Item Value Reference Range Interpretation Comments UA Blood (test code = Small *ABN*(06/24/15 UA Blood) 1:02 PM) [facility] AND [id number] 19:02:00 Test Item Value Reference Range Interpretation Comments UA Ketones (test code = UA Negative mg/dL Ketones) [facility] AND [id number] 19:02:00 Test Item Value Reference Range Interpretation Comments UA Glucose (test code = UA Glucose) 150 mg/dL [facility] AND [id number] 19:02:00 Test Item Value Reference Range Interpretation Comments Occult Bld Stl (test Negative (06/24/15 1:02 code = Occult Bld Stl) PM) [facility]2015-11-21 19:02:00 Test Item Value Reference Range Interpretation Comments Magnesium Lvl (test code = Magnesium 2.0 1.8-2.4 Lvl) [facility]2015-11-21 19:02:00 Test Item Value Reference Range Interpretation Comments B/C Ratio (test code = B/C Ratio) 14 6-25 [facility]2015-11-21 19:02:00 Test Item Value Reference Range Interpretation Comments AGAP (test code = AGAP) 11.8 10.0-20.0 [facility]2015-11-21 19:02:00 Test Item Value Reference Range Interpretation Comments Globulin (test code = Globulin) 4.8 2.0-4.0 [facility]2015-11-21 19:02:00 Test Item Value Reference Range Interpretation Comments A/G Ratio (test code = A/G Ratio) 0.7 0.7-1.6 [facility]2015-11-21 19:02:00 Test Item Value Reference Range Interpretation Comments eGFR (test code = eGFR) 100 [facility]2015-11-21 19:02:00 Test Item Value Reference Range Interpretation Comments Alk Phos (test code = Alk Phos) 82 39-136 [facility]2015-11-21 19:02:00 Test Item Value Reference Range Interpretation Comments Bili Total (test code = Bili Total) 0.3 0.2-1.3 [facility]2015-11-21 19:02:00 Test Item Value Reference Range Interpretation Comments Albumin Lvl (test code = Albumin Lvl) 3.4 3.5-5.0 [facility]2015-11-21 19:02:00 Test Item Value Reference Range Interpretation Comments AST (test code = AST) 18 See_Comment [Auto mated message] The system which ge nerated this result transmit plcaido reference range : <=37. The reference range was not used to interpr et this result as jazzy l/abnormal. [facility]2015-11-21 19:02:00 Test Item Value Reference Range Interpretation Comments ALT (test code = ALT) 34 See_Comment [Auto mated message] The system which ge nerated this result transmit placido reference range : <=65. The reference range was not used to interpr et this result as jazzy l/abnormal. [facility]2015-11-21 19:02:00 Test Item Value Reference Range Interpretation Comments BUN (test code = BUN) 10 7-22 [facility]2015-11-21 19:02:00 Test Item Value Reference Range Interpretation Comments Chloride Lvl (test code = Chloride Lvl) 104 95-109 [facility]2015-11-21 19:02:00 Test Item Value Reference Range Interpretation Comments Creatinine Lvl (test code = Creatinine 0.70 0.50-1.40 Lvl) [facility]2015-11-21 19:02:00 Test Item Value Reference Range Interpretation Comments Potassium Lvl (test code = Potassium 3.8 3.5-5.1 Lvl) [facility] [place] 19:02:00 Test Item Value Reference Range Interpretation Comments Sodium Lvl (test code = Sodium Lvl) 138 135-145 [facility] [place]2015-11-21 19:02:00 Test Item Value Reference Range Interpretation Comments Glucose Lvl (test code = Glucose Lvl) 110 70-99 [facility]2015-11-21 19:02:00 Test Item Value Reference Range Interpretation Comments Calcium Lvl (test code = Calcium Lvl) 9.0 8.5-10.5 [facility]2015-11-21 19:02:00 Test Item Value Reference Range Interpretation Comments CO2 (test code = CO2) 26 24-32 [facility]2015-11-21 19:02:00 Test Item Value Reference Range Interpretation Comments Total Protein (test code = Total 8.2 6.4-8.4 Protein) [facility]2015-11-21 19:02:00 Test Item Value Reference Range Interpretation Comments Lipase Lvl (test code = Lipase Lvl) 107 73-393 [facility] 19:02:00 Test Item Value Reference Range Interpretation Comments Segs (test code = Segs) 61.2 45.0-75.0 [facility]entonSvlswebMCOGVHVXHL4209-38-04 19:02:00 Test Item Value Reference Range Interpretation Comments Lymphocytes (test code = Lymphocytes) 26.6 20.0-40.0 [facility]entonTfdwnsgXDXOWIWDLU6211-87-68 19:02:00 Test Item Value Reference Range Interpretation Comments Basophils # (test code 0.1 See_Comment [Aut omated message] The = Basophils #) system which generated this result tra nsmitted reference range : <=0.2. The reference r severo was not used to int erpret this result as normal/abnormal . [facility] DentonCnjayubJFMPJLPKHC0426-45-70 19:02:00 Test Item Value Reference Range Interpretation Comments Eosinophils # (test code 0.6 See_Comment [A utomated message] The = Eosinophils #) system whic h generated this result tra nsmitted reference range : <=0.5. The reference r severo was not used to int erpret this result as normal/abnormal . [facility] DentonMrvfqviZULRGVKMUJ7394-60-75 19:02:00 Test Item Value Reference Range Interpretation Comments Basophils (test code = 0.8 See_Comment [Aut omated message] The Basophils) system which ge nerated this result tra nsmitted reference range : <=1.0. The reference r severo was not used to int erpret this result as normal/abnormal . [facility] DentonBkwzrmyQVGVSSLCUG6756-25-28 19:02:00 Test Item Value Reference Range Interpretation Comments Monocytes (test code = Monocytes) 6.0 2.0-12.0 [facility] DentonNturkvaCBFWEWBOFZ9234-84-54 19:02:00 Test Item Value Reference Range Interpretation Comments Segs-Bands # (test code = Segs-Bands #) 6.6 1.5-8.1 [facility] DentonBrgtlmrLTBAZKRVPT0457-46-16 19:02:00 Test Item Value Reference Range Interpretation Comments Lymphocytes # (test code = Lymphocytes 2.9 1.0-5.5 #) [facility] DentonJwipsrhGEDUIRDQLR3789-09-27 19:02:00 Test Item Value Reference Range Interpretation Comments Eosinophils (test code = 5.4 See_Comment [A utomated message] The Eosinophils) system which ge nerated this result tra nsmitted reference range : <=4.0. The reference r severo was not used to int erpret this result as normal/abnormal . [facility] DentonJipeoudQSXMLJXENK8138-29-84 19:02:00 Test Item Value Reference Range Interpretation Comments Monocytes # (test code 0.6 See_Comment [Aut omated message] The = Monocytes #) system which generated this result tra nsmitted reference range : <=0.8. The reference r severo was not used to int erpret this result as normal/abnormal . [facility] DentonUjgvnsqTVWFXNMXFL0692-04-98 19:02:00 Test Item Value Reference Range Interpretation Comments MPV (test code = MPV) 9.8 7.4-10.4 [facility] DentonWllbfdkXDOXUXZKMJ6882-52-60 19:02:00 Test Item Value Reference Range Interpretation Comments Platelet (test code = Platelet) 226 133-450 [facility] DentonWhkadubDBGDPBERMN7942-62-80 19:02:00 Test Item Value Reference Range Interpretation Comments RDW (test code = RDW) 12.4 11.5-14.5 [facility] DentonFjaklxkAUZQZBYYLN9773-30-07 19:02:00 Test Item Value Reference Range Interpretation Comments MCHC (test code = MCHC) 32.3 32.0-36.0 [facility] DentonYtlosgrCJDGMFTJGL3164-41-86 19:02:00 Test Item Value Reference Range Interpretation Comments MCV (test code = MCV) 87.5 80.0-98.0 [facility] DentonHizwcduZKARHYZCLH4833-97-90 19:02:00 Test Item Value Reference Range Interpretation Comments MCH (test code = MCH) 28.2 pg 27.0-31.0 [facility] DentonIysndkpFHEDTPTGCV8301-16-78 19:02:00 Test Item Value Reference Range Interpretation Comments Hct (test code = Hct) 43.4 36.0-48.0 [facility] DentonIrkuaguJHPVHLTDPA1850-69-52 19:02:00 Test Item Value Reference Range Interpretation Comments Hgb (test code = Hgb) 14.0 12.0-16.0 [facility] DentonFzgynffHBTUODZBQV1875-53-43 19:02:00 Test Item Value Reference Range Interpretation Comments RBC (test code = RBC) 4.97 4.20-5.40 [facility] DentonUebkhfiEJAIQWDBKF3875-00-55 19:02:00 Test Item Value Reference Range Interpretation Comments WBC (test code = WBC) 10.8 3.7-10.4 [facility] DentonAfsctywDITMNRLIQP7021-51-64 19:02:00 Test Item Value Reference Range Interpretation Comments PTT (test code = PTT) 26.3 s 22.9-35.8 [facility] DentonNzvblbbDNDXMSPVTA4316-10-24 19:02:00 Test Item Value Reference Range Interpretation Comments INR (test code = INR) 0.98 0.85-1.17 [facility] DentonDsuqrwqYRXUPSIOLT9451-37-89 19:02:00 Test Item Value Reference Range Interpretation Comments PT (test code = PT) 13.3 s 12.0-14.7 [facility] AND [id number] 19:02:00 Test Item Value Reference Range Interpretation Comments UA Urobilinogen (test code = UA <=1.0 mg/dL 0.1-1.0 Urobilinogen) [facility] AND [id number] 19:02:00 Test Item Value Reference Range Interpretation Comments UA Color (test code = UA Color) Colorless [facility] AND [id number] 19:02:00 Test Item Value Reference Range Interpretation Comments UA WBC (test code = 6 See_Comment [Automa placido message] The UA WBC) system which ge nerated this result transmit placido reference range : <=5. The reference range was not used to interpr et this result as jazzy l/abnormal. [facility] AND [id number] 19:02:00 Test Item Value Reference Range Interpretation Comments UA Bacteria (test code = UA Occasional /HPF Bacteria) [facility] AND [id number] 19:02:00 Test Item Value Reference Range Interpretation Comments UA RBC (test code = 1 See_Comment [Automa placido message] The UA RBC) system which ge nerated this result transmit placido reference range : <=2. The reference range was not used to interpr et this result as jazzy l/abnormal. [facility] AND [id number] 19:02:00 Test Item Value Reference Range Interpretation Comments UA pH (test code = UA pH) 6.0 5.0-8.0 [facility] AND [id number] 19:02:00 Test Item Value Reference Range Interpretation Comments UA Spec Grav (test code = UA Spec Grav) 1.020 [facility] AND [id number] 19:02:00 Test Item Value Reference Range Interpretation Comments UA Turbidity (test code = Clear (06/24/15 1:02 UA Turbidity) PM) [facility] [id number] 19:02:00 Test Item Value Reference Range Interpretation Comments UA Leuk Est (test code Small *ABN*(06/24/15 = UA Leuk Est) 1:02 PM) [facility] [id number] 19:02:00 Test Item Value Reference Range Interpretation Comments UA Protein (test code = UA Negative mg/dL Protein) [facility] AND [id number] 19:02:00 Test Item Value Reference Range Interpretation Comments UA Sq Epi (test code = UA Sq Occasional /LPF Epi) [facility] AND [id number] 19:02:00 Test Item Value Reference Range Interpretation Comments UA Nitrite (test code Negative (06/24/15 1:02 = UA Nitrite) PM) [facility] AND [id number] 19:02:00 Test Item Value Reference Range Interpretation Comments UA Bili (test code = Negative *NA*(06/24/15 UA Bili) 1:02 PM) [facility] AND [id number] 19:02:00 Test Item Value Reference Range Interpretation Comments UA Blood (test code = Small *ABN*(06/24/15 UA Blood) 1:02 PM) [facility] AND [id number] 19:02:00 Test Item Value Reference Range Interpretation Comments UA Ketones (test code = UA Negative mg/dL Ketones) [facility] AND [id number] 19:02:00 Test Item Value Reference Range Interpretation Comments UA Glucose (test code = UA Glucose) 150 mg/dL [facility] AND [id number] 19:02:00 Test Item Value Reference Range Interpretation Comments Occult Bld Stl (test Negative (06/24/15 1:02 code = Occult Bld Stl) PM) [facility] [id number] 19:02:00 Test Item Value Reference Range Interpretation Comments Magnesium Lvl (test code = Magnesium 2.0 1.8-2.4 Lvl) [facility]annCHE[facility] [id number] 19:02:00 Test Item Value Reference Range Interpretation Comments B/C Ratio (test code = B/C Ratio) 14 6-25 [facility]2015-11-21 19:02:00 Test Item Value Reference Range Interpretation Comments AGAP (test code = AGAP) 11.8 10.0-20.0 [facility]2015-11-21 19:02:00 Test Item Value Reference Range Interpretation Comments Globulin (test code = Globulin) 4.8 2.0-4.0 [facility]2015-11-21 19:02:00 Test Item Value Reference Range Interpretation Comments A/G Ratio (test code = A/G Ratio) 0.7 0.7-1.6 [facility]2015-11-21 19:02:00 Test Item Value Reference Range Interpretation Comments eGFR (test code = eGFR) 100 [facility]2015-11-21 19:02:00 Test Item Value Reference Range Interpretation Comments Alk Phos (test code = Alk Phos) 82 39-136 [facility]2015-11-21 19:02:00 Test Item Value Reference Range Interpretation Comments Bili Total (test code = Bili Total) 0.3 0.2-1.3 [facility]2015-11-21 19:02:00 Test Item Value Reference Range Interpretation Comments Albumin Lvl (test code = Albumin Lvl) 3.4 3.5-5.0 [facility]2015-11-21 19:02:00 Test Item Value Reference Range Interpretation Comments AST (test code = AST) 18 See_Comment [Auto mated message] The system which ge nerated this result transmit placido reference range : <=37. The reference range was not used to interpr et this result as jazzy l/abnormal. [place] [id number] 19:02:00 Test Item Value Reference Range Interpretation Comments ALT (test code = ALT) 34 See_Comment [Auto mated message] The system which ge nerated this result transmit placido reference range : <=65. The reference range was not used to interpr et this result as jazzy l/abnormal. [place] [id number] 19:02:00 Test Item Value Reference Range Interpretation Comments BUN (test code = BUN) 10 7-22 [facility]2015-11-21 19:02:00 Test Item Value Reference Range Interpretation Comments Chloride Lvl (test code = Chloride Lvl) 104 95-109 [facility]2015-11-21 19:02:00 Test Item Value Reference Range Interpretation Comments Creatinine Lvl (test code = Creatinine 0.70 0.50-1.40 Lvl) [facility]2015-11-21 19:02:00 Test Item Value Reference Range Interpretation Comments Potassium Lvl (test code = Potassium 3.8 3.5-5.1 Lvl) [facility]2015-11-21 19:02:00 Test Item Value Reference Range Interpretation Comments Sodium Lvl (test code = Sodium Lvl) 138 135-145 [facility]2015-11-21 19:02:00 Test Item Value Reference Range Interpretation Comments Glucose Lvl (test code = Glucose Lvl) 110 70-99 [facility]2015-11-21 19:02:00 Test Item Value Reference Range Interpretation Comments Calcium Lvl (test code = Calcium Lvl) 9.0 8.5-10.5 [facility]2015-11-21 19:02:00 Test Item Value Reference Range Interpretation Comments CO2 (test code = CO2) 26 24-32 [facility]2015-11-21 19:02:00 Test Item Value Reference Range Interpretation Comments Total Protein (test code = Total 8.2 6.4-8.4 Protein) [facility]2015-11-21 19:02:00 Test Item Value Reference Range Interpretation Comments Lipase Lvl (test code = Lipase Lvl) 107 73-393 [facility]entonLchuvwqIGBNZPHAUD0109-05-04 19:02:00 Test Item Value Reference Range Interpretation Comments Segs (test code = Segs) 61.2 45.0-75.0 [facility] DentonKigyrehOSRIQYHNEO7564-30-51 19:02:00 Test Item Value Reference Range Interpretation Comments Lymphocytes (test code = Lymphocytes) 26.6 20.0-40.0 [facility] DentonCfmrkhqNMLOTUGZDN5939-71-37 19:02:00 Test Item Value Reference Range Interpretation Comments Basophils # (test code 0.1 See_Comment [Aut omated message] The = Basophils #) system which generated this result tra nsmitted reference range : <=0.2. The reference r severo was not used to int erpret this result as normal/abnormal . [facility] DentonQeyiorvAXGYRBFMNS4433-25-30 19:02:00 Test Item Value Reference Range Interpretation Comments Eosinophils # (test code 0.6 See_Comment [A utomated message] The = Eosinophils #) system whic h generated this result tra nsmitted reference range : <=0.5. The reference r severo was not used to int erpret this result as normal/abnormal . [facility] DentonZujvtqwDKAFEHTGLC1593-13-24 19:02:00 Test Item Value Reference Range Interpretation Comments Basophils (test code = 0.8 See_Comment [Aut omated message] The Basophils) system which ge nerated this result tra nsmitted reference range : <=1.0. The reference r severo was not used to int erpret this result as normal/abnormal . [facility] DentonKbktgfvARBVIZUPME3925-66-78 19:02:00 Test Item Value Reference Range Interpretation Comments Monocytes (test code = Monocytes) 6.0 2.0-12.0 [facility] DentonEdzmdmiCARQDWMBBI2658-80-05 19:02:00 Test Item Value Reference Range Interpretation Comments Segs-Bands # (test code = Segs-Bands #) 6.6 1.5-8.1 [facility] DentonPltfxrsSDKZOQIPTR9780-47-47 19:02:00 Test Item Value Reference Range Interpretation Comments Lymphocytes # (test code = Lymphocytes 2.9 1.0-5.5 #) [facility] DentonDaevoopOJOAYRCFDW6543-20-55 19:02:00 Test Item Value Reference Range Interpretation Comments Eosinophils (test code = 5.4 See_Comment [A utomated message] The Eosinophils) system which ge nerated this result tra nsmitted reference range : <=4.0. The reference r severo was not used to int erpret this result as normal/abnormal . [facility] DentonCjwpgcgNBUSJRXRDV5787-68-11 19:02:00 Test Item Value Reference Range Interpretation Comments Monocytes # (test code 0.6 See_Comment [Aut omated message] The = Monocytes #) system which generated this result tra nsmitted reference range : <=0.8. The reference r severo was not used to int erpret this result as normal/abnormal . [facility] DentonLqfmmhbIIVYPQOVKN7503-36-90 19:02:00 Test Item Value Reference Range Interpretation Comments MPV (test code = MPV) 9.8 7.4-10.4 [facility]LqsilmfRZQBBXNGMO9770-30-78 19:02:00 Test Item Value Reference Range Interpretation Comments Platelet (test code = Platelet) 226 133-450 [facility]EzbobxnUUXAYZMXNA9708-76-40 19:02:00 Test Item Value Reference Range Interpretation Comments RDW (test code = RDW) 12.4 11.5-14.5 [facility] HospitalNkjuchxGKTVUKEJRI1752-45-76 19:02:00 Test Item Value Reference Range Interpretation Comments MCHC (test code = MCHC) 32.3 32.0-36.0 [facility] HospitalZslwtdbUYFRZDIZBV8161-41-99 19:02:00 Test Item Value Reference Range Interpretation Comments MCV (test code = MCV) 87.5 80.0-98.0 [facility] HospitalYrrzbkeKWTMWRXHCT3192-36-50 19:02:00 Test Item Value Reference Range Interpretation Comments MCH (test code = MCH) 28.2 pg 27.0-31.0 [facility] HospitalQuaazptXSXJQVMORY9636-50-64 19:02:00 Test Item Value Reference Range Interpretation Comments Hct (test code = Hct) 43.4 36.0-48.0 [facility] HospitalXbibgiqDOOUOJLZZL5063-72-85 19:02:00 Test Item Value Reference Range Interpretation Comments Hgb (test code = Hgb) 14.0 12.0-16.0 [facility] HospitalNfmvzroSOGSQBDSNQ8206-96-64 19:02:00 Test Item Value Reference Range Interpretation Comments RBC (test code = RBC) 4.97 4.20-5.40 [facility] HospitalVezzgqrWJLZBLCXLH8452-98-73 19:02:00 Test Item Value Reference Range Interpretation Comments WBC (test code = WBC) 10.8 3.7-10.4 [facility] HospitalHjikrjxZSGQKUZITN1840-68-46 19:02:00 Test Item Value Reference Range Interpretation Comments PTT (test code = PTT) 26.3 s 22.9-35.8 [facility] HospitalXrnhlcpLCHZNHFLES3148-41-47 19:02:00 Test Item Value Reference Range Interpretation Comments INR (test code = INR) 0.98 0.85-1.17 [facility] HospitalAipyaobBGZPSJKEGR4718-81-41 19:02:00 Test Item Value Reference Range Interpretation Comments PT (test code = PT) 13.3 s 12.0-14.7 [facility]2015-11-21 19:02:00 Test Item Value Reference Range Interpretation Comments UA Urobilinogen (test code = UA <=1.0 mg/dL 0.1-1.0 Urobilinogen) [facility] AND [id number] 19:02:00 Test Item Value Reference Range Interpretation Comments UA Color (test code = UA Color) Colorless [facility] AND [id number] 19:02:00 Test Item Value Reference Range Interpretation Comments UA WBC (test code = 6 See_Comment [Automa placido message] The UA WBC) system which ge nerated this result transmit placido reference range : <=5. The reference range was not used to interpr et this result as jazzy l/abnormal. [facility] AND [id number] 19:02:00 Test Item Value Reference Range Interpretation Comments UA Bacteria (test code = UA Occasional /HPF Bacteria) [facility] AND [id number] 19:02:00 Test Item Value Reference Range Interpretation Comments UA RBC (test code = 1 See_Comment [Automa placido message] The UA RBC) system which ge nerated this result transmit placido reference range : <=2. The reference range was not used to interpr et this result as jazzy l/abnormal. [facility] AND [id number] 19:02:00 Test Item Value Reference Range Interpretation Comments UA pH (test code = UA pH) 6.0 5.0-8.0 [facility] AND [id number] 19:02:00 Test Item Value Reference Range Interpretation Comments UA Spec Grav (test code = UA Spec Grav) 1.020 [facility] AND [id number] 19:02:00 Test Item Value Reference Range Interpretation Comments UA Turbidity (test code = Clear (06/24/15 1:02 UA Turbidity) PM) [facility] AND [id number] 19:02:00 Test Item Value Reference Range Interpretation Comments UA Leuk Est (test code Small *ABN*(06/24/15 = UA Leuk Est) 1:02 PM) [facility] AND [id number] 19:02:00 Test Item Value Reference Range Interpretation Comments UA Protein (test code = UA Negative mg/dL Protein) [facility] AND [id number] 19:02:00 Test Item Value Reference Range Interpretation Comments UA Sq Epi (test code = UA Sq Occasional /LPF Epi) [facility] AND [id number] 19:02:00 Test Item Value Reference Range Interpretation Comments UA Nitrite (test code Negative (06/24/15 1:02 = UA Nitrite) PM) [facility] AND [id number] 19:02:00 Test Item Value Reference Range Interpretation Comments UA Bili (test code = Negative *NA*(06/24/15 UA Bili) 1:02 PM) [facility] AND [id number] 19:02:00 Test Item Value Reference Range Interpretation Comments UA Blood (test code = Small *ABN*(06/24/15 UA Blood) 1:02 PM) [facility] AND [id number] 19:02:00 Test Item Value Reference Range Interpretation Comments UA Ketones (test code = UA Negative mg/dL Ketones) [facility] AND [id number] 19:02:00 Test Item Value Reference Range Interpretation Comments UA Glucose (test code = UA Glucose) 150 mg/dL [facility] AND [id number] 19:02:00 Test Item Value Reference Range Interpretation Comments Occult Bld Stl (test Negative (06/24/15 1:02 code = Occult Bld Stl) PM) [facility]2015-11-21 19:02:00 Test Item Value Reference Range Interpretation Comments Magnesium Lvl (test code = Magnesium 2.0 1.8-2.4 Lvl) [facility]2015-11-21 19:02:00 Test Item Value Reference Range Interpretation Comments B/C Ratio (test code = B/C Ratio) 14 6-25 [facility]2015-11-21 19:02:00 Test Item Value Reference Range Interpretation Comments AGAP (test code = AGAP) 11.8 10.0-20.0 [facility]2015-11-21 19:02:00 Test Item Value Reference Range Interpretation Comments Globulin (test code = Globulin) 4.8 2.0-4.0 [facility]2015-11-21 19:02:00 Test Item Value Reference Range Interpretation Comments A/G Ratio (test code = A/G Ratio) 0.7 0.7-1.6 [place] [id number] 19:02:00 Test Item Value Reference Range Interpretation Comments eGFR (test code = eGFR) 100 [facility]2015-11-21 19:02:00 Test Item Value Reference Range Interpretation Comments Alk Phos (test code = Alk Phos) 82 39-136 [facility]2015-11-21 19:02:00 Test Item Value Reference Range Interpretation Comments Bili Total (test code = Bili Total) 0.3 0.2-1.3 [facility]2015-11-21 19:02:00 Test Item Value Reference Range Interpretation Comments Albumin Lvl (test code = Albumin Lvl) 3.4 3.5-5.0 [facility]2015-11-21 19:02:00 Test Item Value Reference Range Interpretation Comments AST (test code = AST) 18 See_Comment [Auto mated message] The system which ge nerated this result transmit placido reference range : <=37. The reference range was not used to interpr et this result as jazzy l/abnormal. [facility]2015-11-21 19:02:00 Test Item Value Reference Range Interpretation Comments ALT (test code = ALT) 34 See_Comment [Auto mated message] The system which ge nerated this result transmit placido reference range : <=65. The reference range was not used to interpr et this result as jazzy l/abnormal. [facility]2015-11-21 19:02:00 Test Item Value Reference Range Interpretation Comments BUN (test code = BUN) 10 7-22 [facility]2015-11-21 19:02:00 Test Item Value Reference Range Interpretation Comments Chloride Lvl (test code = Chloride Lvl) 104 95-109 [facility]2015-11-21 19:02:00 Test Item Value Reference Range Interpretation Comments Creatinine Lvl (test code = Creatinine 0.70 0.50-1.40 Lvl) [facility] [place]2015-[place] 19:02:00 Test Item Value Reference Range Interpretation Comments Potassium Lvl (test code = Potassium 3.8 3.5-5.1 Lvl) [facility] [place]2015-11-21 19:02:00 Test Item Value Reference Range Interpretation Comments Sodium Lvl (test code = Sodium Lvl) 138 135-145 [facility]2015-11-21 19:02:00 Test Item Value Reference Range Interpretation Comments Glucose Lvl (test code = Glucose Lvl) 110 70-99 [facility]2015-11-21 19:02:00 Test Item Value Reference Range Interpretation Comments Calcium Lvl (test code = Calcium Lvl) 9.0 8.5-10.5 [facility]2015-11-21 19:02:00 Test Item Value Reference Range Interpretation Comments CO2 (test code = CO2) 26 24-32 [facility]2015-11-21 19:02:00 Test Item Value Reference Range Interpretation Comments Total Protein (test code = Total 8.2 6.4-8.4 Protein) [facility]2015-11-21 19:02:00 Test Item Value Reference Range Interpretation Comments Lipase Lvl (test code = Lipase Lvl) 107 73-393 [facility]SriynfhEXTWRFFXPQ4519-02-16 19:02:00 Test Item Value Reference Range Interpretation Comments Segs (test code = Segs) 61.2 45.0-75.0 [place] 461375-11-21 19:02:00 Test Item Value Reference Range Interpretation Comments Lymphocytes (test code = Lymphocytes) 26.6 20.0-40.0 [facility]entonTtislroQCVFIVMGFP0371-90-60 19:02:00 Test Item Value Reference Range Interpretation Comments Basophils # (test code 0.1 See_Comment [Aut omated message] The = Basophils #) system which generated this result tra nsmitted reference range : <=0.2. The reference r severo was not used to int erpret this result as normal/abnormal . [facility]entonWjwsebnVAWWEJCUEJ3426-64-51 19:02:00 Test Item Value Reference Range Interpretation Comments Eosinophils # (test code 0.6 See_Comment [A utomated message] The = Eosinophils #) system whic h generated this result tra nsmitted reference range : <=0.5. The reference r severo was not used to int erpret this result as normal/abnormal . [facility] DentonUshdqvhDJXZMDSWUC0982-79-56 19:02:00 Test Item Value Reference Range Interpretation Comments Basophils (test code = 0.8 See_Comment [Aut omated message] The Basophils) system which ge nerated this result tra nsmitted reference range : <=1.0. The reference r severo was not used to int erpret this result as normal/abnormal . [facility] DentonPhaajqcFZXTLHTYWZ2705-84-87 19:02:00 Test Item Value Reference Range Interpretation Comments Monocytes (test code = Monocytes) 6.0 2.0-12.0 [facility] DentonXwapmaqOWMHZUZYBN7749-19-45 19:02:00 Test Item Value Reference Range Interpretation Comments Segs-Bands # (test code = Segs-Bands #) 6.6 1.5-8.1 [facility] DentonWnhsmmjQXHZLIISMV1201-55-94 19:02:00 Test Item Value Reference Range Interpretation Comments Lymphocytes # (test code = Lymphocytes 2.9 1.0-5.5 #) [facility] DentonPsynpowRRGNGJCIBQ9142-07-51 19:02:00 Test Item Value Reference Range Interpretation Comments Eosinophils (test code = 5.4 See_Comment [A utomated message] The Eosinophils) system which ge nerated this result tra nsmitted reference range : <=4.0. The reference r severo was not used to int erpret this result as normal/abnormal . [facility] DentonYvtjbohKGTWUNPXGF0689-20-32 19:02:00 Test Item Value Reference Range Interpretation Comments Monocytes # (test code 0.6 See_Comment [Aut omated message] The = Monocytes #) system which generated this result tra nsmitted reference range : <=0.8. The reference r severo was not used to int erpret this result as normal/abnormal . [facility] DentonQtghpqxEMGCKOEKLH8704-18-97 19:02:00 Test Item Value Reference Range Interpretation Comments MPV (test code = MPV) 9.8 7.4-10.4 [facility] DentonIhkleraNFDOLCLZIE6239-38-44 19:02:00 Test Item Value Reference Range Interpretation Comments Platelet (test code = Platelet) 226 133-450 [facility] DentonJuhuifvZTPTICVRHP8074-48-05 19:02:00 Test Item Value Reference Range Interpretation Comments RDW (test code = RDW) 12.4 11.5-14.5 [facility] DentonLhqjvztKBAQARFPWK7867-00-54 19:02:00 Test Item Value Reference Range Interpretation Comments MCHC (test code = MCHC) 32.3 32.0-36.0 [facility] DentonBrdoqfrYEFMQVHRCM2279-91-90 19:02:00 Test Item Value Reference Range Interpretation Comments MCV (test code = MCV) 87.5 80.0-98.0 [facility] DentonGdydcauECZVCPYNPQ3305-81-90 19:02:00 Test Item Value Reference Range Interpretation Comments MCH (test code = MCH) 28.2 pg 27.0-31.0 [facility] DentonBlxvqncRUOUYIKAVG7706-73-63 19:02:00 Test Item Value Reference Range Interpretation Comments Hct (test code = Hct) 43.4 36.0-48.0 [facility] DentonIirruddDRXECMIHRV1713-01-14 19:02:00 Test Item Value Reference Range Interpretation Comments Hgb (test code = Hgb) 14.0 12.0-16.0 [facility] DentonGpwholgTZARWVBIFP0057-24-72 19:02:00 Test Item Value Reference Range Interpretation Comments RBC (test code = RBC) 4.97 4.20-5.40 [facility] DentonRouopjvHJLSNJYHOE9236-05-23 19:02:00 Test Item Value Reference Range Interpretation Comments WBC (test code = WBC) 10.8 3.7-10.4 [facility] DentonLbkbvcbRLSOYZTXTY8951-68-00 19:02:00 Test Item Value Reference Range Interpretation Comments PTT (test code = PTT) 26.3 s 22.9-35.8 [facility] DentonIagqkmiYVFNJHFUOD0689-80-64 19:02:00 Test Item Value Reference Range Interpretation Comments INR (test code = INR) 0.98 0.85-1.17 [facility] DentonSoyykmpPPNCAGVKYP6473-54-45 19:02:00 Test Item Value Reference Range Interpretation Comments PT (test code = PT) 13.3 s 12.0-14.7 [facility] [place]2015-11-21 19:02:00 Test Item Value Reference Range Interpretation Comments UA Urobilinogen (test code = UA <=1.0 mg/dL 0.1-1.0 Urobilinogen) [facility] AND [id number] 19:02:00 Test Item Value Reference Range Interpretation Comments UA Color (test code = UA Color) Colorless [facility]2015-11-21 19:02:00 Test Item Value Reference Range Interpretation Comments UA WBC (test code = 6 See_Comment [Automa placido message] The UA WBC) system which ge nerated this result transmit placido reference range : <=5. The reference range was not used to interpr et this result as jazzy l/abnormal. [facility] [id number] 19:02:00 Test Item Value Reference Range Interpretation Comments UA Bacteria (test code = UA Occasional /HPF Bacteria) [facility] AND [id number] 19:02:00 Test Item Value Reference Range Interpretation Comments UA RBC (test code = 1 See_Comment [Automa placido message] The UA RBC) system which ge nerated this result transmit placido reference range : <=2. The reference range was not used to interpr et this result as jazzy l/abnormal. [facility] AND [id number] 19:02:00 Test Item Value Reference Range Interpretation Comments UA pH (test code = UA pH) 6.0 5.0-8.0 [facility] AND [id number] 19:02:00 Test Item Value Reference Range Interpretation Comments UA Spec Grav (test code = UA Spec Grav) 1.020 [facility] AND [id number] 19:02:00 Test Item Value Reference Range Interpretation Comments UA Turbidity (test code = Clear (06/24/15 1:02 UA Turbidity) PM) [facility] AND [id number] 19:02:00 Test Item Value Reference Range Interpretation Comments UA Leuk Est (test code Small *ABN*(06/24/15 = UA Leuk Est) 1:02 PM) [facility] AND [id number] 19:02:00 Test Item Value Reference Range Interpretation Comments UA Protein (test code = UA Negative mg/dL Protein) [facility] AND [id number] 19:02:00 Test Item Value Reference Range Interpretation Comments UA Sq Epi (test code = UA Sq Occasional /LPF Epi) [facility] AND [id number] 19:02:00 Test Item Value Reference Range Interpretation Comments UA Nitrite (test code Negative (06/24/15 1:02 = UA Nitrite) PM) [facility] AND [id number] 19:02:00 Test Item Value Reference Range Interpretation Comments UA Bili (test code = Negative *NA*(06/24/15 UA Bili) 1:02 PM) [facility] AND [id number] 19:02:00 Test Item Value Reference Range Interpretation Comments UA Blood (test code = Small *ABN*(06/24/15 UA Blood) 1:02 PM) [facility] AND [id number] 19:02:00 Test Item Value Reference Range Interpretation Comments UA Ketones (test code = UA Negative mg/dL Ketones) [facility] AND [id number] 19:02:00 Test Item Value Reference Range Interpretation Comments UA Glucose (test code = UA Glucose) 150 mg/dL [facility] AND [id number] 19:02:00 Test Item Value Reference Range Interpretation Comments Occult Bld Stl (test Negative (06/24/15 1:02 code = Occult Bld Stl) PM) [facility]2015-11-21 19:02:00 Test Item Value Reference Range Interpretation Comments Magnesium Lvl (test code = Magnesium 2.0 1.8-2.4 Lvl) [facility]2015-11-21 19:02:00 Test Item Value Reference Range Interpretation Comments B/C Ratio (test code = B/C Ratio) 14 6-25 [facility]2015-11-21 19:02:00 Test Item Value Reference Range Interpretation Comments AGAP (test code = AGAP) 11.8 10.0-20.0 [facility]2015-11-21 19:02:00 Test Item Value Reference Range Interpretation Comments Globulin (test code = Globulin) 4.8 2.0-4.0 [facility]2015-11-21 19:02:00 Test Item Value Reference Range Interpretation Comments A/G Ratio (test code = A/G Ratio) 0.7 0.7-1.6 [facility]2015-11-21 19:02:00 Test Item Value Reference Range Interpretation Comments eGFR (test code = eGFR) 100 [facility]2015-11-21 19:02:00 Test Item Value Reference Range Interpretation Comments Alk Phos (test code = Alk Phos) 82 39-136 [facility]2015-11-21 19:02:00 Test Item Value Reference Range Interpretation Comments Bili Total (test code = Bili Total) 0.3 0.2-1.3 [facility]2015-11-21 19:02:00 Test Item Value Reference Range Interpretation Comments Albumin Lvl (test code = Albumin Lvl) 3.4 3.5-5.0 [facility]2015-11-21 19:02:00 Test Item Value Reference Range Interpretation Comments AST (test code = AST) 18 See_Comment [Auto mated message] The system which ge nerated this result transmit placido reference range : <=37. The reference range was not used to interpr et this result as jazzy l/abnormal. [facility]2015-11-21 19:02:00 Test Item Value Reference Range Interpretation Comments ALT (test code = ALT) 34 See_Comment [Auto mated message] The system which ge nerated this result transmit placido reference range : <=65. The reference range was not used to interpr et this result as jazzy l/abnormal. [facility]2015-11-21 19:02:00 Test Item Value Reference Range Interpretation Comments BUN (test code = BUN) 10 7-22 [facility]2015-11-21 19:02:00 Test Item Value Reference Range Interpretation Comments Chloride Lvl (test code = Chloride Lvl) 104 95-109 [facility]2015-11-21 19:02:00 Test Item Value Reference Range Interpretation Comments Creatinine Lvl (test code = Creatinine 0.70 0.50-1.40 Lvl) [facility]2015-11-21 19:02:00 Test Item Value Reference Range Interpretation Comments Potassium Lvl (test code = Potassium 3.8 3.5-5.1 Lvl) [facility]2015-11-21 19:02:00 Test Item Value Reference Range Interpretation Comments Sodium Lvl (test code = Sodium Lvl) 138 135-145 [facility]2015-11-21 19:02:00 Test Item Value Reference Range Interpretation Comments Glucose Lvl (test code = Glucose Lvl) 110 70-99 [facility]2015-11-21 19:02:00 Test Item Value Reference Range Interpretation Comments Calcium Lvl (test code = Calcium Lvl) 9.0 8.5-10.5 [facility]2015-11-21 19:02:00 Test Item Value Reference Range Interpretation Comments CO2 (test code = CO2) 26 24-32 [facility]2015-11-21 19:02:00 Test Item Value Reference Range Interpretation Comments Total Protein (test code = Total 8.2 6.4-8.4 Protein) [facility]2015-11-21 19:02:00 Test Item Value Reference Range Interpretation Comments Lipase Lvl (test code = Lipase Lvl) 107 73-393 [facility] DentonBxsomarKULXMCZSEK3315-31-19 19:02:00 Test Item Value Reference Range Interpretation Comments Segs (test code = Segs) 61.2 45.0-75.0 [facility] DentonKucrlguPJBBQQRZSX9725-14-45 19:02:00 Test Item Value Reference Range Interpretation Comments Lymphocytes (test code = Lymphocytes) 26.6 20.0-40.0 [facility] [id number] 19:02:00 Test Item Value Reference Range Interpretation Comments Basophils # (test code 0.1 See_Comment [Aut omated message] The = Basophils #) system which generated this result tra nsmitted reference range : <=0.2. The reference r severo was not used to int erpret this result as normal/abnormal . [facility] [id number] 19:02:00 Test Item Value Reference Range Interpretation Comments Eosinophils # (test code 0.6 See_Comment [A utomated message] The = Eosinophils #) system whic h generated this result tra nsmitted reference range : <=0.5. The reference r severo was not used to int erpret this result as normal/abnormal . [facility] [id number] 19:02:00 Test Item Value Reference Range Interpretation Comments Basophils (test code = 0.8 See_Comment [Aut omated message] The Basophils) system which ge nerated this result tra nsmitted reference range : <=1.0. The reference r severo was not used to int erpret this result as normal/abnormal . [facility] DentonCoarxgxTMSNKULFMI1753-16-12 19:02:00 Test Item Value Reference Range Interpretation Comments Monocytes (test code = Monocytes) 6.0 2.0-12.0 [facility] [id number] 19:02:00 Test Item Value Reference Range Interpretation Comments Segs-Bands # (test code = Segs-Bands #) 6.6 1.5-8.1 [facility] Dent[id number] 19:02:00 Test Item Value Reference Range Interpretation Comments Lymphocytes # (test code = Lymphocytes 2.9 1.0-5.5 #) [facility] Dent[id number] 19:02:00 Test Item Value Reference Range Interpretation Comments Eosinophils (test code = 5.4 See_Comment [A utomated message] The Eosinophils) system which ge nerated this result tra nsmitted reference range : <=4.0. The reference r severo was not used to int erpret this result as normal/abnormal . [facility] D[id number] 19:02:00 Test Item Value Reference Range Interpretation Comments Monocytes # (test code 0.6 See_Comment [Aut omated message] The = Monocytes #) system which generated this result tra nsmitted reference range : <=0.8. The reference r severo was not used to int erpret this result as normal/abnormal . [facility] DentonEugpfzmFGLEQXDPOZ7991-86-84 19:02:00 Test Item Value Reference Range Interpretation Comments MPV (test code = MPV) 9.8 7.4-10.4 [facility] [id number] 19:02:00 Test Item Value Reference Range Interpretation Comments Platelet (test code = Platelet) 226 133-450 [facility] [id number] 19:02:00 Test Item Value Reference Range Interpretation Comments RDW (test code = RDW) 12.4 11.5-14.5 [facility] D[id number] 19:02:00 Test Item Value Reference Range Interpretation Comments MCHC (test code = MCHC) 32.3 32.0-36.0 [facility] [id number] 19:02:00 Test Item Value Reference Range Interpretation Comments MCV (test code = MCV) 87.5 80.0-98.0 [facility] [id number] 19:02:00 Test Item Value Reference Range Interpretation Comments MCH (test code = MCH) 28.2 pg 27.0-31.0 [facility] DentonCdjgnweFJRRAAGDTQ7685-53-22 19:02:00 Test Item Value Reference Range Interpretation Comments Hct (test code = Hct) 43.4 36.0-48.0 [facility] [id number] 19:02:00 Test Item Value Reference Range Interpretation Comments Hgb (test code = Hgb) 14.0 12.0-16.0 [facility] DentonYourcekUUMWADMXYR7037-04-50 19:02:00 Test Item Value Reference Range Interpretation Comments RBC (test code = RBC) 4.97 4.20-5.40 [facility] [id number] 19:02:00 Test Item Value Reference Range Interpretation Comments WBC (test code = WBC) 10.8 3.7-10.4 [facility] Dent[id number] 19:02:00 Test Item Value Reference Range Interpretation Comments PTT (test code = PTT) 26.3 s 22.9-35.8 [facility] D[id number] 19:02:00 Test Item Value Reference Range Interpretation Comments INR (test code = INR) 0.98 0.85-1.17 [facility] DentonXmilmxzBFKWGZKXUP7616-68-21 19:02:00 Test Item Value Reference Range Interpretation Comments PT (test code = PT) 13.3 s 12.0-14.7 [facility] [place]2015-11-21 19:02:00 Test Item Value Reference Range Interpretation Comments UA Urobilinogen (test code = UA <=1.0 mg/dL 0.1-1.0 Urobilinogen) [facility] AND [id number] 19:02:00 Test Item Value Reference Range Interpretation Comments UA Color (test code = UA Color) Colorless [facility] AND [id number] 19:02:00 Test Item Value Reference Range Interpretation Comments UA WBC (test code = 6 See_Comment [Automa placido message] The UA WBC) system which ge nerated this result transmit placido reference range : <=5. The reference range was not used to interpr et this result as jazzy l/abnormal. [facility] AND [id number] 19:02:00 Test Item Value Reference Range Interpretation Comments UA Bacteria (test code = UA Occasional /HPF Bacteria) [facility] AND [id number] 19:02:00 Test Item Value Reference Range Interpretation Comments UA RBC (test code = 1 See_Comment [Automa placido message] The UA RBC) system which ge nerated this result transmit placido reference range : <=2. The reference range was not used to interpr et this result as jazzy l/abnormal. [facility] AND [id number] 19:02:00 Test Item Value Reference Range Interpretation Comments UA pH (test code = UA pH) 6.0 5.0-8.0 [facility] AND [id number] 19:02:00 Test Item Value Reference Range Interpretation Comments UA Spec Grav (test code = UA Spec Grav) 1.020 [facility] AND [id number] 19:02:00 Test Item Value Reference Range Interpretation Comments UA Turbidity (test code = Clear (06/24/15 1:02 UA Turbidity) PM) [facility] AND [id number] 19:02:00 Test Item Value Reference Range Interpretation Comments UA Leuk Est (test code Small *ABN*(06/24/15 = UA Leuk Est) 1:02 PM) [facility] AND [id number] 19:02:00 Test Item Value Reference Range Interpretation Comments UA Protein (test code = UA Negative mg/dL Protein) [facility] AND [id number] 19:02:00 Test Item Value Reference Range Interpretation Comments UA Sq Epi (test code = UA Sq Occasional /LPF Epi) [facility] AND [id number] 19:02:00 Test Item Value Reference Range Interpretation Comments UA Nitrite (test code Negative (06/24/15 1:02 = UA Nitrite) PM) [facility] AND [id number] 19:02:00 Test Item Value Reference Range Interpretation Comments UA Bili (test code = Negative *NA*(06/24/15 UA Bili) 1:02 PM) [facility] AND [id number] 19:02:00 Test Item Value Reference Range Interpretation Comments UA Blood (test code = Small *ABN*(06/24/15 UA Blood) 1:02 PM) [facility] AND [id number] 19:02:00 Test Item Value Reference Range Interpretation Comments UA Ketones (test code = UA Negative mg/dL Ketones) [facility] AND [id number] 19:02:00 Test Item Value Reference Range Interpretation Comments UA Glucose (test code = UA Glucose) 150 mg/dL [facility] AND [id number] 19:02:00 Test Item Value Reference Range Interpretation Comments Occult Bld Stl (test Negative (06/24/15 1:02 code = Occult Bld Stl) PM) [facility]2015-11-21 19:02:00 Test Item Value Reference Range Interpretation Comments Magnesium Lvl (test code = Magnesium 2.0 1.8-2.4 Lvl) [place] [id number] 19:02:00 Test Item Value Reference Range Interpretation Comments B/C Ratio (test code = B/C Ratio) 14 6-25 [facility]2015-11-21 19:02:00 Test Item Value Reference Range Interpretation Comments AGAP (test code = AGAP) 11.8 10.0-20.0 [facility]2015-11-21 19:02:00 Test Item Value Reference Range Interpretation Comments Globulin (test code = Globulin) 4.8 2.0-4.0 [place] [id number] 19:02:00 Test Item Value Reference Range Interpretation Comments A/G Ratio (test code = A/G Ratio) 0.7 0.7-1.6 [place] [id number] 19:02:00 Test Item Value Reference Range Interpretation Comments eGFR (test code = eGFR) 100 [facility]2015-11-21 19:02:00 Test Item Value Reference Range Interpretation Comments Alk Phos (test code = Alk Phos) 82 39-136 [facility]2015-11-21 19:02:00 Test Item Value Reference Range Interpretation Comments Bili Total (test code = Bili Total) 0.3 0.2-1.3 [facility]2015-11-21 19:02:00 Test Item Value Reference Range Interpretation Comments Albumin Lvl (test code = Albumin Lvl) 3.4 3.5-5.0 [facility]2015-11-21 19:02:00 Test Item Value Reference Range Interpretation Comments AST (test code = AST) 18 See_Comment [Auto mated message] The system which ge nerated this result transmit placido reference range : <=37. The reference range was not used to interpr et this result as jazzy l/abnormal. [facility]2015-11-21 19:02:00 Test Item Value Reference Range Interpretation Comments ALT (test code = ALT) 34 See_Comment [Auto mated message] The system which ge nerated this result transmit placido reference range : <=65. The reference range was not used to interpr et this result as jazzy l/abnormal. [facility] [facility] 19:02:00 Test Item Value Reference Range Interpretation Comments BUN (test code = BUN) 10 7-22 [facility]2015-11-21 19:02:00 Test Item Value Reference Range Interpretation Comments Chloride Lvl (test code = Chloride Lvl) 104 95-109 [facility]2015-11-21 19:02:00 Test Item Value Reference Range Interpretation Comments Creatinine Lvl (test code = Creatinine 0.70 0.50-1.40 Lvl) [facility]2015-11-21 19:02:00 Test Item Value Reference Range Interpretation Comments Potassium Lvl (test code = Potassium 3.8 3.5-5.1 Lvl) [facility]2015-11-21 19:02:00 Test Item Value Reference Range Interpretation Comments Sodium Lvl (test code = Sodium Lvl) 138 135-145 [facility]2015-11-21 19:02:00 Test Item Value Reference Range Interpretation Comments Glucose Lvl (test code = Glucose Lvl) 110 70-99 [facility]2015-11-21 19:02:00 Test Item Value Reference Range Interpretation Comments Calcium Lvl (test code = Calcium Lvl) 9.0 8.5-10.5 [facility]2015-11-21 19:02:00 Test Item Value Reference Range Interpretation Comments CO2 (test code = CO2) 26 24-32 [facility]2015-11-21 19:02:00 Test Item Value Reference Range Interpretation Comments Total Protein (test code = Total 8.2 6.4-8.4 Protein) [facility]2015-11-21 19:02:00 Test Item Value Reference Range Interpretation Comments Lipase Lvl (test code = Lipase Lvl) 107 73-393 [facility]entonDmlyywsRFOSDEVPKC8192-41-20 19:02:00 Test Item Value Reference Range Interpretation Comments Segs (test code = Segs) 61.2 45.0-75.0 [facility] DentonMpqefeaZBOLRKRFVE6533-98-18 19:02:00 Test Item Value Reference Range Interpretation Comments Lymphocytes (test code = Lymphocytes) 26.6 20.0-40.0 [facility] DentonPsraewvTQERVNNBYX7667-72-68 19:02:00 Test Item Value Reference Range Interpretation Comments Basophils # (test code 0.1 See_Comment [Aut omated message] The = Basophils #) system which generated this result tra nsmitted reference range : <=0.2. The reference r severo was not used to int erpret this result as normal/abnormal . [facility] DentonMogizdoPLTBNGRMMP1005-37-91 19:02:00 Test Item Value Reference Range Interpretation Comments Eosinophils # (test code 0.6 See_Comment [A utomated message] The = Eosinophils #) system whic h generated this result tra nsmitted reference range : <=0.5. The reference r severo was not used to int erpret this result as normal/abnormal . [facility] DentonMxhlpzhKUPIPWESND6279-79-19 19:02:00 Test Item Value Reference Range Interpretation Comments Basophils (test code = 0.8 See_Comment [Aut omated message] The Basophils) system which ge nerated this result tra nsmitted reference range : <=1.0. The reference r severo was not used to int erpret this result as normal/abnormal . [facility] DentonTxaftmeDCVYBVUAKB0789-82-52 19:02:00 Test Item Value Reference Range Interpretation Comments Monocytes (test code = Monocytes) 6.0 2.0-12.0 [facility] DentonYpvbvrzSXGZREFPFF4957-32-01 19:02:00 Test Item Value Reference Range Interpretation Comments Segs-Bands # (test code = Segs-Bands #) 6.6 1.5-8.1 [facility] DentonUwprlruVBCBTMLBNR3923-26-86 19:02:00 Test Item Value Reference Range Interpretation Comments Lymphocytes # (test code = Lymphocytes 2.9 1.0-5.5 #) [facility] DentonCawqhahSCLVBXZYUL3407-28-84 19:02:00 Test Item Value Reference Range Interpretation Comments Eosinophils (test code = 5.4 See_Comment [A utomated message] The Eosinophils) system which ge nerated this result tra nsmitted reference range : <=4.0. The reference r severo was not used to int erpret this result as normal/abnormal . [facility] DentonTbwyftpMEOMOHLXLJ2940-15-86 19:02:00 Test Item Value Reference Range Interpretation Comments Monocytes # (test code 0.6 See_Comment [Aut omated message] The = Monocytes #) system which generated this result tra nsmitted reference range : <=0.8. The reference r severo was not used to int erpret this result as normal/abnormal . [facility] DentonPaefiwrASYUGTHQUI7125-89-32 19:02:00 Test Item Value Reference Range Interpretation Comments MPV (test code = MPV) 9.8 7.4-10.4 [facility] DentonAsdkjopSMKAIKOIQG4280-72-98 19:02:00 Test Item Value Reference Range Interpretation Comments Platelet (test code = Platelet) 226 133-450 [facility] DentonHvegkcgCDENCDMUUX5591-20-95 19:02:00 Test Item Value Reference Range Interpretation Comments RDW (test code = RDW) 12.4 11.5-14.5 [facility] DentonZrhrqauBERBJQWBOB1040-44-87 19:02:00 Test Item Value Reference Range Interpretation Comments MCHC (test code = MCHC) 32.3 32.0-36.0 [facility] DentonYvdqyliOGFPJAEEBX9163-22-16 19:02:00 Test Item Value Reference Range Interpretation Comments MCV (test code = MCV) 87.5 80.0-98.0 [facility] DentonIzpgrpeYDVUSUTTTS3862-94-15 19:02:00 Test Item Value Reference Range Interpretation Comments MCH (test code = MCH) 28.2 pg 27.0-31.0 [facility] DentonBngfceyXVUYFONFPF0533-96-79 19:02:00 Test Item Value Reference Range Interpretation Comments Hct (test code = Hct) 43.4 36.0-48.0 [facility] DentonOslxjnoMJHKUQJDSH1070-37-65 19:02:00 Test Item Value Reference Range Interpretation Comments Hgb (test code = Hgb) 14.0 12.0-16.0 [facility] DentonFwwknqhBOKQOHQAUC5199-25-65 19:02:00 Test Item Value Reference Range Interpretation Comments RBC (test code = RBC) 4.97 4.20-5.40 [facility] DentonRozlyirXQRGGUAPPZ2863-90-49 19:02:00 Test Item Value Reference Range Interpretation Comments WBC (test code = WBC) 10.8 3.7-10.4 [facility] DentonXuxhdbsWQNOEIJCZT1257-50-17 19:02:00 Test Item Value Reference Range Interpretation Comments PTT (test code = PTT) 26.3 s 22.9-35.8 [facility] DentonGtmwauvFJSSYLUVQM4467-23-75 19:02:00 Test Item Value Reference Range Interpretation Comments INR (test code = INR) 0.98 0.85-1.17 [facility] DentonPgmbhmiMAUXYNWACR2965-48-96 19:02:00 Test Item Value Reference Range Interpretation Comments PT (test code = PT) 13.3 s 12.0-14.7 [facility] AND [id number] 19:02:00 Test Item Value Reference Range Interpretation Comments UA Urobilinogen (test code = UA <=1.0 mg/dL 0.1-1.0 Urobilinogen) [facility] AND [id number] 19:02:00 Test Item Value Reference Range Interpretation Comments UA Color (test code = UA Color) Colorless [facility] AND [id number] 19:02:00 Test Item Value Reference Range Interpretation Comments UA WBC (test code = 6 See_Comment [Automa placido message] The UA WBC) system which ge nerated this result transmit placido reference range : <=5. The reference range was not used to interpr et this result as jazzy l/abnormal. [facility] AND [id number] 19:02:00 Test Item Value Reference Range Interpretation Comments UA Bacteria (test code = UA Occasional /HPF Bacteria) [facility] AND [id number] 19:02:00 Test Item Value Reference Range Interpretation Comments UA RBC (test code = 1 See_Comment [Automa placido message] The UA RBC) system which ge nerated this result transmit placido reference range : <=2. The reference range was not used to interpr et this result as jazzy l/abnormal. [facility] AND [id number] 19:02:00 Test Item Value Reference Range Interpretation Comments UA pH (test code = UA pH) 6.0 5.0-8.0 [facility] AND [id number] 19:02:00 Test Item Value Reference Range Interpretation Comments UA Spec Grav (test code = UA Spec Grav) 1.020 [facility] AND [id number] 19:02:00 Test Item Value Reference Range Interpretation Comments UA Turbidity (test code = Clear (06/24/15 1:02 UA Turbidity) PM) [facility] AND [id number] 19:02:00 Test Item Value Reference Range Interpretation Comments UA Leuk Est (test code Small *ABN*(06/24/15 = UA Leuk Est) 1:02 PM) [facility] [id number] 19:02:00 Test Item Value Reference Range Interpretation Comments UA Protein (test code = UA Negative mg/dL Protein) [facility] [id number] 19:02:00 Test Item Value Reference Range Interpretation Comments UA Sq Epi (test code = UA Sq Occasional /LPF Epi) [facility] [id number] 19:02:00 Test Item Value Reference Range Interpretation Comments UA Nitrite (test code Negative (06/24/15 1:02 = UA Nitrite) PM) [facility] [id number] 19:02:00 Test Item Value Reference Range Interpretation Comments UA Bili (test code = Negative *NA*(06/24/15 UA Bili) 1:02 PM) [facility] AND [id number] 19:02:00 Test Item Value Reference Range Interpretation Comments UA Blood (test code = Small *ABN*(06/24/15 UA Blood) 1:02 PM) [facility] AND [id number] 19:02:00 Test Item Value Reference Range Interpretation Comments UA Ketones (test code = UA Negative mg/dL Ketones) [facility] [id number] 19:02:00 Test Item Value Reference Range Interpretation Comments UA Glucose (test code = UA Glucose) 150 mg/dL [facility] AND [id number] 19:02:00 Test Item Value Reference Range Interpretation Comments Occult Bld Stl (test Negative (06/24/15 1:02 code = Occult Bld Stl) PM) [facility] [id number] 19:02:00 Test Item Value Reference Range Interpretation Comments Magnesium Lvl (test code = Magnesium 2.0 1.8-2.4 Lvl) [facility]annCHE[facility] [id number] 19:02:00 Test Item Value Reference Range Interpretation Comments B/C Ratio (test code = B/C Ratio) 14 6-25 [facility]ann[facility] [id number] 19:02:00 Test Item Value Reference Range Interpretation Comments AGAP (test code = AGAP) 11.8 10.0-20.0 [facility]2015-11-21 19:02:00 Test Item Value Reference Range Interpretation Comments Globulin (test code = Globulin) 4.8 2.0-4.0 [facility]2015-11-21 19:02:00 Test Item Value Reference Range Interpretation Comments A/G Ratio (test code = A/G Ratio) 0.7 0.7-1.6 [facility]2015-11-21 19:02:00 Test Item Value Reference Range Interpretation Comments eGFR (test code = eGFR) 100 [place] 950135-11-21 19:02:00 Test Item Value Reference Range Interpretation Comments Alk Phos (test code = Alk Phos) 82 39-136 [facility]2015-11-21 19:02:00 Test Item Value Reference Range Interpretation Comments Bili Total (test code = Bili Total) 0.3 0.2-1.3 [place] [id number] 19:02:00 Test Item Value Reference Range Interpretation Comments Albumin Lvl (test code = Albumin Lvl) 3.4 3.5-5.0 [facility]2015-11-21 19:02:00 Test Item Value Reference Range Interpretation Comments AST (test code = AST) 18 See_Comment [Auto mated message] The system which ge nerated this result transmit placido reference range : <=37. The reference range was not used to interpr et this result as jazzy l/abnormal. [facility]2015-11-21 19:02:00 Test Item Value Reference Range Interpretation Comments ALT (test code = ALT) 34 See_Comment [Auto mated message] The system which ge nerated this result transmit placido reference range : <=65. The reference range was not used to interpr et this result as jazzy l/abnormal. [place] [id number] 19:02:00 Test Item Value Reference Range Interpretation Comments BUN (test code = BUN) 10 7-22 [facility]2015-11-21 19:02:00 Test Item Value Reference Range Interpretation Comments Chloride Lvl (test code = Chloride Lvl) 104 95-109 [facility]2015-11-21 19:02:00 Test Item Value Reference Range Interpretation Comments Creatinine Lvl (test code = Creatinine 0.70 0.50-1.40 Lvl) [facility]2015-11-21 19:02:00 Test Item Value Reference Range Interpretation Comments Potassium Lvl (test code = Potassium 3.8 3.5-5.1 Lvl) [facility]2015-11-21 19:02:00 Test Item Value Reference Range Interpretation Comments Sodium Lvl (test code = Sodium Lvl) 138 135-145 [facility]2015-11-21 19:02:00 Test Item Value Reference Range Interpretation Comments Glucose Lvl (test code = Glucose Lvl) 110 70-99 [facility]2015-11-21 19:02:00 Test Item Value Reference Range Interpretation Comments Calcium Lvl (test code = Calcium Lvl) 9.0 8.5-10.5 [facility]2015-11-21 19:02:00 Test Item Value Reference Range Interpretation Comments CO2 (test code = CO2) 26 24-32 [facility]2015-11-21 19:02:00 Test Item Value Reference Range Interpretation Comments Total Protein (test code = Total 8.2 6.4-8.4 Protein) [facility]2015-11-21 19:02:00 Test Item Value Reference Range Interpretation Comments Lipase Lvl (test code = Lipase Lvl) 107 73-393 [facility] [id number] 19:02:00 Test Item Value Reference Range Interpretation Comments Segs (test code = Segs) 61.2 45.0-75.0 [facility] [id number] 19:02:00 Test Item Value Reference Range Interpretation Comments Lymphocytes (test code = Lymphocytes) 26.6 20.0-40.0 [place] [id number] 19:02:00 Test Item Value Reference Range Interpretation Comments Basophils # (test code 0.1 See_Comment [Aut omated message] The = Basophils #) system which generated this result tra nsmitted reference range : <=0.2. The reference r severo was not used to int erpret this result as normal/abnormal . [facility] DentonCawrftbVPLETZCYIX6083-46-51 19:02:00 Test Item Value Reference Range Interpretation Comments Eosinophils # (test code 0.6 See_Comment [A utomated message] The = Eosinophils #) system whic h generated this result tra nsmitted reference range : <=0.5. The reference r severo was not used to int erpret this result as normal/abnormal . [facility] DentonHjkwzatMWDEPRXTDS9449-29-87 19:02:00 Test Item Value Reference Range Interpretation Comments Basophils (test code = 0.8 See_Comment [Aut omated message] The Basophils) system which ge nerated this result tra nsmitted reference range : <=1.0. The reference r severo was not used to int erpret this result as normal/abnormal . [facility] DentonRwhzjykQJSGWRDECI6441-85-95 19:02:00 Test Item Value Reference Range Interpretation Comments Monocytes (test code = Monocytes) 6.0 2.0-12.0 [facility] DentonMenljjySNLITAELBM8295-81-82 19:02:00 Test Item Value Reference Range Interpretation Comments Segs-Bands # (test code = Segs-Bands #) 6.6 1.5-8.1 [facility] DentonNxtriltYEULXRLOQT6874-34-48 19:02:00 Test Item Value Reference Range Interpretation Comments Lymphocytes # (test code = Lymphocytes 2.9 1.0-5.5 #) [facility] DentonMafudtmSLZZSDFDOQ5046-99-81 19:02:00 Test Item Value Reference Range Interpretation Comments Eosinophils (test code = 5.4 See_Comment [A utomated message] The Eosinophils) system which ge nerated this result tra nsmitted reference range : <=4.0. The reference r severo was not used to int erpret this result as normal/abnormal . [facility] DentonOychkmoQWFTHEFEEJ7282-41-81 19:02:00 Test Item Value Reference Range Interpretation Comments Monocytes # (test code 0.6 See_Comment [Aut omated message] The = Monocytes #) system which generated this result tra nsmitted reference range : <=0.8. The reference r severo was not used to int erpret this result as normal/abnormal . [facility] DentonUnsfokxKGVEBKSRFU7011-58-22 19:02:00 Test Item Value Reference Range Interpretation Comments MPV (test code = MPV) 9.8 7.4-10.4 [facility] DentonGkqwxskQDKSSDTMEW7024-85-88 19:02:00 Test Item Value Reference Range Interpretation Comments Platelet (test code = Platelet) 226 133-450 [facility] [id number] 19:02:00 Test Item Value Reference Range Interpretation Comments RDW (test code = RDW) 12.4 11.5-14.5 [facility] DentonUbbvgkmBIKGCVJRYW4056-90-11 19:02:00 Test Item Value Reference Range Interpretation Comments MCHC (test code = MCHC) 32.3 32.0-36.0 [facility] Dent[id number] 19:02:00 Test Item Value Reference Range Interpretation Comments MCV (test code = MCV) 87.5 80.0-98.0 [facility] DentonZhcnxjtEPUPTFYPAU7199-60-09 19:02:00 Test Item Value Reference Range Interpretation Comments MCH (test code = MCH) 28.2 pg 27.0-31.0 [facility] DentonFqzlsxsISMZUMPDYS3329-73-03 19:02:00 Test Item Value Reference Range Interpretation Comments Hct (test code = Hct) 43.4 36.0-48.0 [facility] DentonNxizvmkWXGLDXPGVS5096-39-06 19:02:00 Test Item Value Reference Range Interpretation Comments Hgb (test code = Hgb) 14.0 12.0-16.0 [facility] DentonGvqszjxEMVKNWCHPZ5886-51-91 19:02:00 Test Item Value Reference Range Interpretation Comments RBC (test code = RBC) 4.97 4.20-5.40 [facility] DentonLxqzhzyACVCKPQNOG1678-32-00 19:02:00 Test Item Value Reference Range Interpretation Comments WBC (test code = WBC) 10.8 3.7-10.4 [facility] DentonPcejoltRXGWRKDHPY0060-65-80 19:02:00 Test Item Value Reference Range Interpretation Comments PTT (test code = PTT) 26.3 s 22.9-35.8 [facility] DentonLoavvahQEUJHELFZT5883-26-12 19:02:00 Test Item Value Reference Range Interpretation Comments INR (test code = INR) 0.98 0.85-1.17 [facility] DentonUxixczqEKKALNHDAE7504-94-54 19:02:00 Test Item Value Reference Range Interpretation Comments PT (test code = PT) 13.3 s 12.0-14.7 [facility]2015-11-21 19:02:00 Test Item Value Reference Range Interpretation Comments UA Urobilinogen (test code = UA <=1.0 mg/dL 0.1-1.0 Urobilinogen) [facility] AND [id number] 19:02:00 Test Item Value Reference Range Interpretation Comments UA Color (test code = UA Color) Colorless [facility] AND [id number] 19:02:00 Test Item Value Reference Range Interpretation Comments UA WBC (test code = 6 See_Comment [Automa placido message] The UA WBC) system which ge nerated this result transmit placido reference range : <=5. The reference range was not used to interpr et this result as jazzy l/abnormal. [facility] AND [id number] 19:02:00 Test Item Value Reference Range Interpretation Comments UA Bacteria (test code = UA Occasional /HPF Bacteria) [facility] AND [id number] 19:02:00 Test Item Value Reference Range Interpretation Comments UA RBC (test code = 1 See_Comment [Automa placido message] The UA RBC) system which ge nerated this result transmit placido reference range : <=2. The reference range was not used to interpr et this result as jazzy l/abnormal. [facility]2015-11-17 10:10:00 Test Item Value Reference Range Interpretation Comments eGFR (test code = eGFR) 105 [facility]2015-11-17 10:10:00 Test Item Value Reference Range Interpretation Comments Sodium Lvl (test code = Sodium Lvl) 139 135-145 [facility]2015-11-17 10:10:00 Test Item Value Reference Range Interpretation Comments Potassium Lvl (test code = Potassium 4.0 3.5-5.1 Lvl) [facility]2015-11-17 10:10:00 Test Item Value Reference Range Interpretation Comments BUN (test code = BUN) 13 7-22 [facility]2015-11-17 10:10:00 Test Item Value Reference Range Interpretation Comments Creatinine Lvl (test code = Creatinine 0.61 0.50-1.40 Lvl) [facility]2015-11-17 10:10:00 Test Item Value Reference Range Interpretation Comments Glucose Lvl (test code = Glucose Lvl) 73 70-99 [facility]2015-11-17 10:10:00 Test Item Value Reference Range Interpretation Comments Chloride Lvl (test code = Chloride Lvl) 108 95-109 [facility]2015-11-17 10:10:00 Test Item Value Reference Range Interpretation Comments CO2 (test code = CO2) 24 24-32 [facility]2015-11-17 10:10:00 Test Item Value Reference Range Interpretation Comments Calcium Lvl (test code = Calcium Lvl) 8.0 8.5-10.5 [facility]2015-11-17 10:10:00 Test Item Value Reference Range Interpretation Comments AGAP (test code = AGAP) 11.0 10.0-20.0 [facility] DentonYupqupwWIMJIVBPBJ3457-62-42 10:10:00 Test Item Value Reference Range Interpretation Comments Platelet (test code = Platelet) 180 133-450 [facility] [id number] 10:10:00 Test Item Value Reference Range Interpretation Comments MPV (test code = MPV) 9.8 7.4-10.4 [facility] DentonAkxnldaAJBQJNUZYC6017-21-26 10:10:00 Test Item Value Reference Range Interpretation Comments RDW (test code = RDW) 12.4 11.5-14.5 [facility] DentonQksubvoXMNKNNAPQP5946-07-72 10:10:00 Test Item Value Reference Range Interpretation Comments RBC (test code = RBC) 4.42 4.20-5.40 [facility] DentonEcfhajzDHPHQTUEAB2216-81-93 10:10:00 Test Item Value Reference Range Interpretation Comments Hgb (test code = Hgb) 12.6 12.0-16.0 [facility] DentonMkioljvHVQYCUQPLN4571-78-78 10:10:00 Test Item Value Reference Range Interpretation Comments MCV (test code = MCV) 89.2 80.0-98.0 [facility] DentonBxhchrrMLPFLVZFGP5510-30-59 10:10:00 Test Item Value Reference Range Interpretation Comments MCH (test code = MCH) 28.5 pg 27.0-31.0 [facility] DentonEzuqjfgADOJTUBLWD4706-53-32 10:10:00 Test Item Value Reference Range Interpretation Comments MCHC (test code = MCHC) 31.9 32.0-36.0 [facility] DentonJyffjpmUBSPEHAFWM3133-63-73 10:10:00 Test Item Value Reference Range Interpretation Comments Hct (test code = Hct) 39.5 36.0-48.0 [facility] DentonObfejxqGJMZGNZZFJ7672-25-85 10:10:00 Test Item Value Reference Range Interpretation Comments WBC (test code = WBC) 8.2 3.7-10.4 [facility] DentonEeryuocXIOXXLNLZG5411-67-79 10:10:00 Test Item Value Reference Range Interpretation Comments Basophils (test code = 0.8 See_Comment [Aut omated message] The Basophils) system which ge nerated this result tra nsmitted reference range : <=1.0. The reference r severo was not used to int erpret this result as normal/abnormal . [facility]entonObtdjirNDDLOFBIAD5573-97-50 10:10:00 Test Item Value Reference Range Interpretation Comments Segs (test code = Segs) 56.4 45.0-75.0 [facility]entonQdfhpidNXNJYNVDHR4523-63-69 10:10:00 Test Item Value Reference Range Interpretation Comments Lymphocytes (test code = Lymphocytes) 31.9 20.0-40.0 [facility] DentonDtiwltyJNTCPPNBWZ7656-28-85 10:10:00 Test Item Value Reference Range Interpretation Comments Monocytes (test code = Monocytes) 6.8 2.0-12.0 [facility] DentonGlehlfkRTLYHNNQAZ6163-29-74 10:10:00 Test Item Value Reference Range Interpretation Comments Eosinophils (test code = 4.1 See_Comment [A utomated message] The Eosinophils) system which ge nerated this result tra nsmitted reference range : <=4.0. The reference r severo was not used to int erpret this result as normal/abnormal . [facility] DentonKpngbzsTSYLZHCVJQ6189-85-35 10:10:00 Test Item Value Reference Range Interpretation Comments Segs-Bands # (test code = Segs-Bands #) 4.6 1.5-8.1 [facility] DentonQciqaynUOBAEXANXT0230-25-02 10:10:00 Test Item Value Reference Range Interpretation Comments Lymphocytes # (test code = Lymphocytes 2.6 1.0-5.5 #) [facility] DentonNjypdypRFQOZCBMYN2719-64-55 10:10:00 Test Item Value Reference Range Interpretation Comments Monocytes # (test code 0.6 See_Comment [Aut omated message] The = Monocytes #) system which generated this result tra nsmitted reference range : <=0.8. The reference r severo was not used to int erpret this result as normal/abnormal . [facility] DentonZljnabnTEICDVYDOI3091-37-85 10:10:00 Test Item Value Reference Range Interpretation Comments Eosinophils # (test code 0.3 See_Comment [A utomated message] The = Eosinophils #) system whic h generated this result tra nsmitted reference range : <=0.5. The reference r severo was not used to int erpret this result as normal/abnormal . [facility] DentonHnmorgoFFGSVGNZQH5058-91-25 10:10:00 Test Item Value Reference Range Interpretation Comments Basophils # (test code 0.1 See_Comment [Aut omated message] The = Basophils #) system which generated this result tra nsmitted reference range : <=0.2. The reference r severo was not used to int erpret this result as normal/abnormal . [facility]2015-11-17 10:10:00 Test Item Value Reference Range Interpretation Comments eGFR (test code = eGFR) 105 [facility]2015-11-17 10:10:00 Test Item Value Reference Range Interpretation Comments Sodium Lvl (test code = Sodium Lvl) 139 135-145 [facility]2015-11-17 10:10:00 Test Item Value Reference Range Interpretation Comments Potassium Lvl (test code = Potassium 4.0 3.5-5.1 Lvl) [facility]2015-11-17 10:10:00 Test Item Value Reference Range Interpretation Comments BUN (test code = BUN) 13 7-22 [facility]2015-11-17 10:10:00 Test Item Value Reference Range Interpretation Comments Creatinine Lvl (test code = Creatinine 0.61 0.50-1.40 Lvl) [facility]2015-11-17 10:10:00 Test Item Value Reference Range Interpretation Comments Glucose Lvl (test code = Glucose Lvl) 73 70-99 [facility]2015-11-17 10:10:00 Test Item Value Reference Range Interpretation Comments Chloride Lvl (test code = Chloride Lvl) 108 95-109 [facility]2015-11-17 10:10:00 Test Item Value Reference Range Interpretation Comments CO2 (test code = CO2) 24 24-32 [facility]2015-11-17 10:10:00 Test Item Value Reference Range Interpretation Comments Calcium Lvl (test code = Calcium Lvl) 8.0 8.5-10.5 [facility]2015-11-17 10:10:00 Test Item Value Reference Range Interpretation Comments AGAP (test code = AGAP) 11.0 10.0-20.0 [facility] DentonThwbwwfFQAEQMPUNV9524-30-82 10:10:00 Test Item Value Reference Range Interpretation Comments Platelet (test code = Platelet) 180 133-450 [facility] DentonWvpxapwKJXLIVUSKQ5589-17-14 10:10:00 Test Item Value Reference Range Interpretation Comments MPV (test code = MPV) 9.8 7.4-10.4 [facility] DentonCiemiakMUGVLOTEJO4695-15-67 10:10:00 Test Item Value Reference Range Interpretation Comments RDW (test code = RDW) 12.4 11.5-14.5 [facility] DentonWprpnnwTDAXFONHEQ4664-73-22 10:10:00 Test Item Value Reference Range Interpretation Comments RBC (test code = RBC) 4.42 4.20-5.40 [facility] DentonRwclfrcNPCCFDEUIK6886-16-24 10:10:00 Test Item Value Reference Range Interpretation Comments Hgb (test code = Hgb) 12.6 12.0-16.0 [facility] DentonVkegwblUSZUGZATRO5858-75-53 10:10:00 Test Item Value Reference Range Interpretation Comments MCV (test code = MCV) 89.2 80.0-98.0 [facility] DentonYmkydfsBKZKGAXEQJ3184-38-15 10:10:00 Test Item Value Reference Range Interpretation Comments MCH (test code = MCH) 28.5 pg 27.0-31.0 [facility] DentonZhmkpwkQHLYTQHLGT1361-17-35 10:10:00 Test Item Value Reference Range Interpretation Comments MCHC (test code = MCHC) 31.9 32.0-36.0 [facility] DentonAkxygvpSXMMXHJZDT7278-02-06 10:10:00 Test Item Value Reference Range Interpretation Comments Hct (test code = Hct) 39.5 36.0-48.0 [facility] DentonMvdeyejPUZUZMWEEA8723-40-38 10:10:00 Test Item Value Reference Range Interpretation Comments WBC (test code = WBC) 8.2 3.7-10.4 [facility] DentonOdnjfeaNKRMMVDKLN4780-15-12 10:10:00 Test Item Value Reference Range Interpretation Comments Basophils (test code = 0.8 See_Comment [Aut omated message] The Basophils) system which ge nerated this result tra nsmitted reference range : <=1.0. The reference r severo was not used to int erpret this result as normal/abnormal . [facility] DentonSxbdnxuEFQUZYOTFQ8382-41-99 10:10:00 Test Item Value Reference Range Interpretation Comments Segs (test code = Segs) 56.4 45.0-75.0 [facility] DentonLqdqqkfAJIGBWPUAG4323-38-13 10:10:00 Test Item Value Reference Range Interpretation Comments Lymphocytes (test code = Lymphocytes) 31.9 20.0-40.0 [facility] DentonHksrrtpZGYNBCVRCK1531-46-30 10:10:00 Test Item Value Reference Range Interpretation Comments Monocytes (test code = Monocytes) 6.8 2.0-12.0 [facility] DentonMhuhunoJNODAEKLIT8559-31-11 10:10:00 Test Item Value Reference Range Interpretation Comments Eosinophils (test code = 4.1 See_Comment [A utomated message] The Eosinophils) system which ge nerated this result tra nsmitted reference range : <=4.0. The reference r severo was not used to int erpret this result as normal/abnormal . [facility] DentonFukxspbTQQKOJOIOP3709-57-09 10:10:00 Test Item Value Reference Range Interpretation Comments Segs-Bands # (test code = Segs-Bands #) 4.6 1.5-8.1 [facility] DentonLknbsvdORMTWZMBUC0652-12-34 10:10:00 Test Item Value Reference Range Interpretation Comments Lymphocytes # (test code = Lymphocytes 2.6 1.0-5.5 #) [facility] DentonLaifbokIOFYIAHZLS3005-61-78 10:10:00 Test Item Value Reference Range Interpretation Comments Monocytes # (test code 0.6 See_Comment [Aut omated message] The = Monocytes #) system which generated this result tra nsmitted reference range : <=0.8. The reference r severo was not used to int erpret this result as normal/abnormal . [facility] DentonFihcxmtXJQMUCIATM9608-83-16 10:10:00 Test Item Value Reference Range Interpretation Comments Eosinophils # (test code 0.3 See_Comment [A utomated message] The = Eosinophils #) system whic h generated this result tra nsmitted reference range : <=0.5. The reference r severo was not used to int erpret this result as normal/abnormal . [facility] DentonAennxfdJVFIPITXQE3128-53-96 10:10:00 Test Item Value Reference Range Interpretation Comments Basophils # (test code 0.1 See_Comment [Aut omated message] The = Basophils #) system which generated this result tra nsmitted reference range : <=0.2. The reference r severo was not used to int erpret this result as normal/abnormal . [facility]2015-11-17 10:10:00 Test Item Value Reference Range Interpretation Comments eGFR (test code = eGFR) 105 [facility]2015-11-17 10:10:00 Test Item Value Reference Range Interpretation Comments Sodium Lvl (test code = Sodium Lvl) 139 135-145 [facility]2015-11-17 10:10:00 Test Item Value Reference Range Interpretation Comments Potassium Lvl (test code = Potassium 4.0 3.5-5.1 Lvl) [facility]2015-11-17 10:10:00 Test Item Value Reference Range Interpretation Comments BUN (test code = BUN) 13 7-22 [facility]2015-11-17 10:10:00 Test Item Value Reference Range Interpretation Comments Creatinine Lvl (test code = Creatinine 0.61 0.50-1.40 Lvl) [facility]2015-11-17 10:10:00 Test Item Value Reference Range Interpretation Comments Glucose Lvl (test code = Glucose Lvl) 73 70-99 [facility]2015-11-17 10:10:00 Test Item Value Reference Range Interpretation Comments Chloride Lvl (test code = Chloride Lvl) 108 95-109 [facility]2015-11-17 10:10:00 Test Item Value Reference Range Interpretation Comments CO2 (test code = CO2) 24 24-32 [facility]2015-11-17 10:10:00 Test Item Value Reference Range Interpretation Comments Calcium Lvl (test code = Calcium Lvl) 8.0 8.5-10.5 [facility]2015-11-17 10:10:00 Test Item Value Reference Range Interpretation Comments AGAP (test code = AGAP) 11.0 10.0-20.0 [facility] DentonMaknadyCMKCWDUROW1794-75-55 10:10:00 Test Item Value Reference Range Interpretation Comments Platelet (test code = Platelet) 180 133-450 [facility] DentonVxhbaiuWVIMEYXKGO9174-91-03 10:10:00 Test Item Value Reference Range Interpretation Comments MPV (test code = MPV) 9.8 7.4-10.4 [facility] DentonGfoonwbJXICODHZOG7945-01-01 10:10:00 Test Item Value Reference Range Interpretation Comments RDW (test code = RDW) 12.4 11.5-14.5 [facility] DentonUmhtsdfLYMNEARUVY9616-08-22 10:10:00 Test Item Value Reference Range Interpretation Comments RBC (test code = RBC) 4.42 4.20-5.40 [facility] DentonIfwfdjiAWBJGOEQQY0014-29-20 10:10:00 Test Item Value Reference Range Interpretation Comments Hgb (test code = Hgb) 12.6 12.0-16.0 [facility] DentonPftykxsORNLUJMUFO3979-42-57 10:10:00 Test Item Value Reference Range Interpretation Comments MCV (test code = MCV) 89.2 80.0-98.0 [facility] DentonUhioyjaQJQZYKMUGP2651-46-66 10:10:00 Test Item Value Reference Range Interpretation Comments MCH (test code = MCH) 28.5 pg 27.0-31.0 [facility] DentonTlbaunqKWKSOHWWSV4610-16-99 10:10:00 Test Item Value Reference Range Interpretation Comments MCHC (test code = MCHC) 31.9 32.0-36.0 [facility] DentonCrvondhOLIYSYJKYT5970-65-36 10:10:00 Test Item Value Reference Range Interpretation Comments Hct (test code = Hct) 39.5 36.0-48.0 [facility] DentonTujqfsrBGTLEUWJWW1583-57-94 10:10:00 Test Item Value Reference Range Interpretation Comments WBC (test code = WBC) 8.2 3.7-10.4 [facility] DentonNocqrebOWZPAFTRIH0478-97-43 10:10:00 Test Item Value Reference Range Interpretation Comments Basophils (test code = 0.8 See_Comment [Aut omated message] The Basophils) system which ge nerated this result tra nsmitted reference range : <=1.0. The reference r severo was not used to int erpret this result as normal/abnormal . [facility] DentonYfqptjtCIPDKGUQRI6670-28-03 10:10:00 Test Item Value Reference Range Interpretation Comments Segs (test code = Segs) 56.4 45.0-75.0 [facility] DentonLleklefLJFHTYNMRH0557-83-39 10:10:00 Test Item Value Reference Range Interpretation Comments Lymphocytes (test code = Lymphocytes) 31.9 20.0-40.0 [facility] DentonSludfcoBJQJGBJIDZ5183-09-74 10:10:00 Test Item Value Reference Range Interpretation Comments Monocytes (test code = Monocytes) 6.8 2.0-12.0 [facility] DentonMranqgkHNBHEXZCGO8813-30-77 10:10:00 Test Item Value Reference Range Interpretation Comments Eosinophils (test code = 4.1 See_Comment [A utomated message] The Eosinophils) system which ge nerated this result tra nsmitted reference range : <=4.0. The reference r severo was not used to int erpret this result as normal/abnormal . [facility] DentonOzutqicVPZMRIVSJM9416-24-66 10:10:00 Test Item Value Reference Range Interpretation Comments Segs-Bands # (test code = Segs-Bands #) 4.6 1.5-8.1 [facility] DentonNfadqiyUQVJWZDLLC8643-10-65 10:10:00 Test Item Value Reference Range Interpretation Comments Lymphocytes # (test code = Lymphocytes 2.6 1.0-5.5 #) [facility] DentonVwlqhlwTLKGEYXMWT3368-61-89 10:10:00 Test Item Value Reference Range Interpretation Comments Monocytes # (test code 0.6 See_Comment [Aut omated message] The = Monocytes #) system which generated this result tra nsmitted reference range : <=0.8. The reference r severo was not used to int erpret this result as normal/abnormal . [facility] DentonVtjbzirXUDHLMXUYR0346-86-04 10:10:00 Test Item Value Reference Range Interpretation Comments Eosinophils # (test code 0.3 See_Comment [A utomated message] The = Eosinophils #) system whic h generated this result tra nsmitted reference range : <=0.5. The reference r severo was not used to int erpret this result as normal/abnormal . [facility] DentonJamrzthNPZWUMFVJJ5496-52-88 10:10:00 Test Item Value Reference Range Interpretation Comments Basophils # (test code 0.1 See_Comment [Aut omated message] The = Basophils #) system which generated this result tra nsmitted reference range : <=0.2. The reference r severo was not used to int erpret this result as normal/abnormal . [facility]2015-11-17 10:10:00 Test Item Value Reference Range Interpretation Comments eGFR (test code = eGFR) 105 [facility]2015-11-17 10:10:00 Test Item Value Reference Range Interpretation Comments Sodium Lvl (test code = Sodium Lvl) 139 135-145 [facility]2015-11-17 10:10:00 Test Item Value Reference Range Interpretation Comments Potassium Lvl (test code = Potassium 4.0 3.5-5.1 Lvl) [facility]2015-11-17 10:10:00 Test Item Value Reference Range Interpretation Comments BUN (test code = BUN) 13 7-22 [facility]2015-11-17 10:10:00 Test Item Value Reference Range Interpretation Comments Creatinine Lvl (test code = Creatinine 0.61 0.50-1.40 Lvl) [facility]2015-11-17 10:10:00 Test Item Value Reference Range Interpretation Comments Glucose Lvl (test code = Glucose Lvl) 73 70-99 [facility]2015-11-17 10:10:00 Test Item Value Reference Range Interpretation Comments Chloride Lvl (test code = Chloride Lvl) 108 95-109 [facility]2015-11-17 10:10:00 Test Item Value Reference Range Interpretation Comments CO2 (test code = CO2) 24 24-32 [facility]2015-11-17 10:10:00 Test Item Value Reference Range Interpretation Comments Calcium Lvl (test code = Calcium Lvl) 8.0 8.5-10.5 [facility]2015-11-17 10:10:00 Test Item Value Reference Range Interpretation Comments AGAP (test code = AGAP) 11.0 10.0-20.0 [facility] DentonKsmdkwnBEDYTKCFRC8981-63-84 10:10:00 Test Item Value Reference Range Interpretation Comments Platelet (test code = Platelet) 180 133-450 [facility] DentonRxqqevvVQHYBITYGK5970-62-15 10:10:00 Test Item Value Reference Range Interpretation Comments MPV (test code = MPV) 9.8 7.4-10.4 [facility] DentonSoaffmbDRSAZLVIUW7426-04-94 10:10:00 Test Item Value Reference Range Interpretation Comments RDW (test code = RDW) 12.4 11.5-14.5 [facility] DentonLttrlngNBYSPQBFKM3174-66-14 10:10:00 Test Item Value Reference Range Interpretation Comments RBC (test code = RBC) 4.42 4.20-5.40 [facility] DentonItqukebJBFSHTFPCA9308-50-44 10:10:00 Test Item Value Reference Range Interpretation Comments Hgb (test code = Hgb) 12.6 12.0-16.0 [facility] DentonWtxhlgcOCTHOWARPE5071-70-13 10:10:00 Test Item Value Reference Range Interpretation Comments MCV (test code = MCV) 89.2 80.0-98.0 [facility] DentonDzjjeltSCWIARVFSL0161-33-25 10:10:00 Test Item Value Reference Range Interpretation Comments MCH (test code = MCH) 28.5 pg 27.0-31.0 [facility] DentonQgldnszWSGWZCKIDL1831-97-46 10:10:00 Test Item Value Reference Range Interpretation Comments MCHC (test code = MCHC) 31.9 32.0-36.0 [facility] DentonJpbmrqcWHFYXMGZOO0649-58-95 10:10:00 Test Item Value Reference Range Interpretation Comments Hct (test code = Hct) 39.5 36.0-48.0 [facility] DentonIdwiqeeCRCSRQYOXE8225-29-08 10:10:00 Test Item Value Reference Range Interpretation Comments WBC (test code = WBC) 8.2 3.7-10.4 [facility] DentonFblfxqyHFDLQSNADX9255-03-26 10:10:00 Test Item Value Reference Range Interpretation Comments Basophils (test code = 0.8 See_Comment [Aut omated message] The Basophils) system which ge nerated this result tra nsmitted reference range : <=1.0. The reference r severo was not used to int erpret this result as normal/abnormal . [facility] DentonJmwsymwMOUMGWNDUF5612-71-96 10:10:00 Test Item Value Reference Range Interpretation Comments Segs (test code = Segs) 56.4 45.0-75.0 [facility] DentonIxwoisoOPLOPXYLYR3247-23-30 10:10:00 Test Item Value Reference Range Interpretation Comments Lymphocytes (test code = Lymphocytes) 31.9 20.0-40.0 [facility] DentonMxwxensNWPKTKYQKG4005-57-41 10:10:00 Test Item Value Reference Range Interpretation Comments Monocytes (test code = Monocytes) 6.8 2.0-12.0 [facility] DentonNnasqrqJVSCUSUICJ2566-82-63 10:10:00 Test Item Value Reference Range Interpretation Comments Eosinophils (test code = 4.1 See_Comment [A utomated message] The Eosinophils) system which ge nerated this result tra nsmitted reference range : <=4.0. The reference r severo was not used to int erpret this result as normal/abnormal . [facility] DentonIwpvohtCKXVTPPSBL1936-53-29 10:10:00 Test Item Value Reference Range Interpretation Comments Segs-Bands # (test code = Segs-Bands #) 4.6 1.5-8.1 [facility] DentonEpxslsvMHCOWBUIUN0340-11-63 10:10:00 Test Item Value Reference Range Interpretation Comments Lymphocytes # (test code = Lymphocytes 2.6 1.0-5.5 #) [facility] DentonVjupjpmYALYHOIPIP9630-25-97 10:10:00 Test Item Value Reference Range Interpretation Comments Monocytes # (test code 0.6 See_Comment [Aut omated message] The = Monocytes #) system which generated this result tra nsmitted reference range : <=0.8. The reference r severo was not used to int erpret this result as normal/abnormal . [facility] DentonVollgvnAQTXYHJYVR7368-78-97 10:10:00 Test Item Value Reference Range Interpretation Comments Eosinophils # (test code 0.3 See_Comment [A utomated message] The = Eosinophils #) system whic h generated this result tra nsmitted reference range : <=0.5. The reference r severo was not used to int erpret this result as normal/abnormal . [facility] DentonWydohztEQJRRIQIQW0143-33-63 10:10:00 Test Item Value Reference Range Interpretation Comments Basophils # (test code 0.1 See_Comment [Aut omated message] The = Basophils #) system which generated this result tra nsmitted reference range : <=0.2. The reference r severo was not used to int erpret this result as normal/abnormal . [facility]2015-11-17 10:10:00 Test Item Value Reference Range Interpretation Comments eGFR (test code = eGFR) 105 [facility]2015-11-17 10:10:00 Test Item Value Reference Range Interpretation Comments Sodium Lvl (test code = Sodium Lvl) 139 135-145 [facility]2015-11-17 10:10:00 Test Item Value Reference Range Interpretation Comments Potassium Lvl (test code = Potassium 4.0 3.5-5.1 Lvl) [facility]2015-11-17 10:10:00 Test Item Value Reference Range Interpretation Comments BUN (test code = BUN) 13 7-22 [facility]2015-11-17 10:10:00 Test Item Value Reference Range Interpretation Comments Creatinine Lvl (test code = Creatinine 0.61 0.50-1.40 Lvl) [facility]2015-11-17 10:10:00 Test Item Value Reference Range Interpretation Comments Glucose Lvl (test code = Glucose Lvl) 73 70-99 [facility]2015-11-17 10:10:00 Test Item Value Reference Range Interpretation Comments Chloride Lvl (test code = Chloride Lvl) 108 95-109 [facility]2015-11-17 10:10:00 Test Item Value Reference Range Interpretation Comments CO2 (test code = CO2) 24 24-32 [facility]2015-11-17 10:10:00 Test Item Value Reference Range Interpretation Comments Calcium Lvl (test code = Calcium Lvl) 8.0 8.5-10.5 [facility]2015-11-17 10:10:00 Test Item Value Reference Range Interpretation Comments AGAP (test code = AGAP) 11.0 10.0-20.0 [facility] DentonNdnmsibLFJMXEVZVK6933-40-87 10:10:00 Test Item Value Reference Range Interpretation Comments Platelet (test code = Platelet) 180 133-450 [facility] DentonBesfkjpJJRCCVXNSH8404-87-51 10:10:00 Test Item Value Reference Range Interpretation Comments MPV (test code = MPV) 9.8 7.4-10.4 [facility] DentonNrxhoboGFYLNEMWUM5743-04-17 10:10:00 Test Item Value Reference Range Interpretation Comments RDW (test code = RDW) 12.4 11.5-14.5 [facility] DentonPyuqkqrVKQQJLGEQJ3869-52-05 10:10:00 Test Item Value Reference Range Interpretation Comments RBC (test code = RBC) 4.42 4.20-5.40 [facility] DentonTfisujkOSGEZYNDCT8001-62-23 10:10:00 Test Item Value Reference Range Interpretation Comments Hgb (test code = Hgb) 12.6 12.0-16.0 [facility] DentonYbccrbbDBUOYKFZPL1728-41-34 10:10:00 Test Item Value Reference Range Interpretation Comments MCV (test code = MCV) 89.2 80.0-98.0 [place] [address]-11-17 10:10:00 Test Item Value Reference Range Interpretation Comments MCH (test code = MCH) 28.5 pg 27.0-31.0 [facility]entonSiqzrhiBWFVDCPJXO1758-99-77 10:10:00 Test Item Value Reference Range Interpretation Comments MCHC (test code = MCHC) 31.9 32.0-36.0 [facility] DentonMmrdmqxYOPRWXXMHL9536-41-22 10:10:00 Test Item Value Reference Range Interpretation Comments Hct (test code = Hct) 39.5 36.0-48.0 [facility] DentonVvadmanNYKJLPVQPZ3505-06-86 10:10:00 Test Item Value Reference Range Interpretation Comments WBC (test code = WBC) 8.2 3.7-10.4 [facility] DentonGiuopmjAWHAZVZWTF0204-00-97 10:10:00 Test Item Value Reference Range Interpretation Comments Basophils (test code = 0.8 See_Comment [Aut omated message] The Basophils) system which ge nerated this result tra nsmitted reference range : <=1.0. The reference r severo was not used to int erpret this result as normal/abnormal . [facility] DentonLahxhetDLAWKPVHTX8288-16-58 10:10:00 Test Item Value Reference Range Interpretation Comments Segs (test code = Segs) 56.4 45.0-75.0 [facility] DentonMywiiokSGSAOGGBFR0613-55-84 10:10:00 Test Item Value Reference Range Interpretation Comments Lymphocytes (test code = Lymphocytes) 31.9 20.0-40.0 [facility] DentonGqjvybiKLRAUDBHKC6134-28-99 10:10:00 Test Item Value Reference Range Interpretation Comments Monocytes (test code = Monocytes) 6.8 2.0-12.0 [facility] DentonTvsvwbxCAETALBOBB5728-45-04 10:10:00 Test Item Value Reference Range Interpretation Comments Eosinophils (test code = 4.1 See_Comment [A utomated message] The Eosinophils) system which ge nerated this result tra nsmitted reference range : <=4.0. The reference r severo was not used to int erpret this result as normal/abnormal . [facility] DentonYexbuumOOHQIQMJLM1503-79-46 10:10:00 Test Item Value Reference Range Interpretation Comments Segs-Bands # (test code = Segs-Bands #) 4.6 1.5-8.1 [facility] DentonDbsizfkEYSMKZIFFI8795-26-80 10:10:00 Test Item Value Reference Range Interpretation Comments Lymphocytes # (test code = Lymphocytes 2.6 1.0-5.5 #) [facility] DentonLpedpdqKGMNRDHEXL0617-71-96 10:10:00 Test Item Value Reference Range Interpretation Comments Monocytes # (test code 0.6 See_Comment [Aut omated message] The = Monocytes #) system which generated this result tra nsmitted reference range : <=0.8. The reference r severo was not used to int erpret this result as normal/abnormal . [facility] DentonNorwpnrKNZRZRIECP6442-84-62 10:10:00 Test Item Value Reference Range Interpretation Comments Eosinophils # (test code 0.3 See_Comment [A utomated message] The = Eosinophils #) system whic h generated this result tra nsmitted reference range : <=0.5. The reference r severo was not used to int erpret this result as normal/abnormal . [facility] DentonPohtmjrFIVSQSXZHT0767-58-11 10:10:00 Test Item Value Reference Range Interpretation Comments Basophils # (test code 0.1 See_Comment [Aut omated message] The = Basophils #) system which generated this result tra nsmitted reference range : <=0.2. The reference r severo was not used to int erpret this result as normal/abnormal . [facility]2015-11-17 10:10:00 Test Item Value Reference Range Interpretation Comments eGFR (test code = eGFR) 105 [place] 950135-11-17 10:10:00 Test Item Value Reference Range Interpretation Comments Sodium Lvl (test code = Sodium Lvl) 139 135-145 [facility]2015-11-17 10:10:00 Test Item Value Reference Range Interpretation Comments Potassium Lvl (test code = Potassium 4.0 3.5-5.1 Lvl) [facility]2015-11-17 10:10:00 Test Item Value Reference Range Interpretation Comments BUN (test code = BUN) 13 7-22 [facility]2015-11-17 10:10:00 Test Item Value Reference Range Interpretation Comments Creatinine Lvl (test code = Creatinine 0.61 0.50-1.40 Lvl) [facility]2015-11-17 10:10:00 Test Item Value Reference Range Interpretation Comments Glucose Lvl (test code = Glucose Lvl) 73 70-99 [facility]2015-11-17 10:10:00 Test Item Value Reference Range Interpretation Comments Chloride Lvl (test code = Chloride Lvl) 108 95-109 [facility]2015-11-17 10:10:00 Test Item Value Reference Range Interpretation Comments CO2 (test code = CO2) 24 24-32 [facility]2015-11-17 10:10:00 Test Item Value Reference Range Interpretation Comments Calcium Lvl (test code = Calcium Lvl) 8.0 8.5-10.5 [facility]2015-11-17 10:10:00 Test Item Value Reference Range Interpretation Comments AGAP (test code = AGAP) 11.0 10.0-20.0 [facility] DentonMfifiifWSEGWYCBNG7201-16-24 10:10:00 Test Item Value Reference Range Interpretation Comments Platelet (test code = Platelet) 180 133-450 [facility] DentonFozfiodIGUVIVDCEB6597-74-71 10:10:00 Test Item Value Reference Range Interpretation Comments MPV (test code = MPV) 9.8 7.4-10.4 [facility] DentonMjbipxwVXTJVEAXLC5531-37-16 10:10:00 Test Item Value Reference Range Interpretation Comments RDW (test code = RDW) 12.4 11.5-14.5 [facility] DentonGwagnviOSGMSNQOKZ9783-19-77 10:10:00 Test Item Value Reference Range Interpretation Comments RBC (test code = RBC) 4.42 4.20-5.40 [facility] DentonOwbyivyUVPNAODJJN0826-47-02 10:10:00 Test Item Value Reference Range Interpretation Comments Hgb (test code = Hgb) 12.6 12.0-16.0 [facility] DentonGwrrfzgACPLQCEPUJ8541-88-92 10:10:00 Test Item Value Reference Range Interpretation Comments MCV (test code = MCV) 89.2 80.0-98.0 [facility] DentonIzqkrshSXSATXCRBF5727-85-36 10:10:00 Test Item Value Reference Range Interpretation Comments MCH (test code = MCH) 28.5 pg 27.0-31.0 [facility] DentonFzzcybcSRFGZRTSRX5179-00-59 10:10:00 Test Item Value Reference Range Interpretation Comments MCHC (test code = MCHC) 31.9 32.0-36.0 [facility] DentonUzdzgyoMRKKETUWIW1817-08-46 10:10:00 Test Item Value Reference Range Interpretation Comments Hct (test code = Hct) 39.5 36.0-48.0 [facility] DentonKfjwcawCFMNYXNWLX5923-76-31 10:10:00 Test Item Value Reference Range Interpretation Comments WBC (test code = WBC) 8.2 3.7-10.4 [facility] DentonLckmkflEZRGWJGOWO2089-96-72 10:10:00 Test Item Value Reference Range Interpretation Comments Basophils (test code = 0.8 See_Comment [Aut omated message] The Basophils) system which ge nerated this result tra nsmitted reference range : <=1.0. The reference r severo was not used to int erpret this result as normal/abnormal . [facility] DentonFpnlhccPGSPXWJGTE7494-85-69 10:10:00 Test Item Value Reference Range Interpretation Comments Segs (test code = Segs) 56.4 45.0-75.0 [facility] DentonMxhupduVMIYSRWMCT0108-88-41 10:10:00 Test Item Value Reference Range Interpretation Comments Lymphocytes (test code = Lymphocytes) 31.9 20.0-40.0 [facility] DentonGokiyruDAMOCCGFII1087-14-61 10:10:00 Test Item Value Reference Range Interpretation Comments Monocytes (test code = Monocytes) 6.8 2.0-12.0 [facility] DentonBcevfmzGTEAGFWOVI7837-09-34 10:10:00 Test Item Value Reference Range Interpretation Comments Eosinophils (test code = 4.1 See_Comment [A utomated message] The Eosinophils) system which ge nerated this result tra nsmitted reference range : <=4.0. The reference r severo was not used to int erpret this result as normal/abnormal . [facility] DentonCqytuefLMMONYYSAJ0213-72-95 10:10:00 Test Item Value Reference Range Interpretation Comments Segs-Bands # (test code = Segs-Bands #) 4.6 1.5-8.1 [facility] DentonIijvlpwDBLHOCXGFM2224-04-52 10:10:00 Test Item Value Reference Range Interpretation Comments Lymphocytes # (test code = Lymphocytes 2.6 1.0-5.5 #) [facility] DentonHzrbibgKIWWETGMAP8191-76-40 10:10:00 Test Item Value Reference Range Interpretation Comments Monocytes # (test code 0.6 See_Comment [Aut omated message] The = Monocytes #) system which generated this result tra nsmitted reference range : <=0.8. The reference r severo was not used to int erpret this result as normal/abnormal . [facility] DentonXadogrzFVIEEAWKYM6438-75-84 10:10:00 Test Item Value Reference Range Interpretation Comments Eosinophils # (test code 0.3 See_Comment [A utomated message] The = Eosinophils #) system whic h generated this result tra nsmitted reference range : <=0.5. The reference r severo was not used to int erpret this result as normal/abnormal . [facility] DentonVwcwdqsYJOWZQJNFI9607-66-53 10:10:00 Test Item Value Reference Range Interpretation Comments Basophils # (test code 0.1 See_Comment [Aut omated message] The = Basophils #) system which generated this result tra nsmitted reference range : <=0.2. The reference r severo was not used to int erpret this result as normal/abnormal . [facility]2015-11-17 10:10:00 Test Item Value Reference Range Interpretation Comments eGFR (test code = eGFR) 105 [facility]2015-11-17 10:10:00 Test Item Value Reference Range Interpretation Comments Sodium Lvl (test code = Sodium Lvl) 139 135-145 [facility]2015-11-17 10:10:00 Test Item Value Reference Range Interpretation Comments Potassium Lvl (test code = Potassium 4.0 3.5-5.1 Lvl) [facility]2015-11-17 10:10:00 Test Item Value Reference Range Interpretation Comments BUN (test code = BUN) 13 7-22 [facility]2015-11-17 10:10:00 Test Item Value Reference Range Interpretation Comments Creatinine Lvl (test code = Creatinine 0.61 0.50-1.40 Lvl) [facility]2015-11-17 10:10:00 Test Item Value Reference Range Interpretation Comments Glucose Lvl (test code = Glucose Lvl) 73 70-99 [facility]2015-11-17 10:10:00 Test Item Value Reference Range Interpretation Comments Chloride Lvl (test code = Chloride Lvl) 108 95-109 [facility]2015-11-17 10:10:00 Test Item Value Reference Range Interpretation Comments CO2 (test code = CO2) 24 24-32 [place] 950135-11-17 10:10:00 Test Item Value Reference Range Interpretation Comments Calcium Lvl (test code = Calcium Lvl) 8.0 8.5-10.5 [facility] CHJKC8774-09-52 10:10:00 Test Item Value Reference Range Interpretation Comments AGAP (test code = AGAP) 11.0 10.0-20.0 [facility] DentonAxuavqeWNXOQKFXEO2426-70-29 10:10:00 Test Item Value Reference Range Interpretation Comments Platelet (test code = Platelet) 180 133-450 [facility] DentonQstlaeqKWHALWZVQY7262-49-18 10:10:00 Test Item Value Reference Range Interpretation Comments MPV (test code = MPV) 9.8 7.4-10.4 [facility] DentonVkrmjspSUGSPDURJO6639-13-64 10:10:00 Test Item Value Reference Range Interpretation Comments RDW (test code = RDW) 12.4 11.5-14.5 [facility] DentonAuykzpxUVLPKJHSLV8813-28-05 10:10:00 Test Item Value Reference Range Interpretation Comments RBC (test code = RBC) 4.42 4.20-5.40 [facility] DentonInmpwylOSMCJNUOSC5448-37-27 10:10:00 Test Item Value Reference Range Interpretation Comments Hgb (test code = Hgb) 12.6 12.0-16.0 [facility] DentonGgugvzfVOHWYGJKRF3134-67-87 10:10:00 Test Item Value Reference Range Interpretation Comments MCV (test code = MCV) 89.2 80.0-98.0 [facility] DentonCmmfztiJEJMGVLDLL8321-65-77 10:10:00 Test Item Value Reference Range Interpretation Comments MCH (test code = MCH) 28.5 pg 27.0-31.0 [facility] DentonMxdxatqLSRHNDSOZE4436-22-07 10:10:00 Test Item Value Reference Range Interpretation Comments MCHC (test code = MCHC) 31.9 32.0-36.0 [facility] DentonUvppzauPYTMUPJBLS7514-12-80 10:10:00 Test Item Value Reference Range Interpretation Comments Hct (test code = Hct) 39.5 36.0-48.0 [facility] DentonFkqihtmDUNPZXDZWH3001-92-24 10:10:00 Test Item Value Reference Range Interpretation Comments WBC (test code = WBC) 8.2 3.7-10.4 [facility] DentonQnldtfyABPQOWYJBI8185-61-01 10:10:00 Test Item Value Reference Range Interpretation Comments Basophils (test code = 0.8 See_Comment [Aut omated message] The Basophils) system which ge nerated this result tra nsmitted reference range : <=1.0. The reference r severo was not used to int erpret this result as normal/abnormal . [facility] DentonEtkododXWYOPJQISM6744-93-06 10:10:00 Test Item Value Reference Range Interpretation Comments Segs (test code = Segs) 56.4 45.0-75.0 [facility] DentonSftndenOJSDLCVUQG5334-19-94 10:10:00 Test Item Value Reference Range Interpretation Comments Lymphocytes (test code = Lymphocytes) 31.9 20.0-40.0 [facility] DentonPbvvwhcZJABJXDADD8267-56-97 10:10:00 Test Item Value Reference Range Interpretation Comments Monocytes (test code = Monocytes) 6.8 2.0-12.0 [facility] DentonCnbjlpwYOMTCVRKXZ5043-31-19 10:10:00 Test Item Value Reference Range Interpretation Comments Eosinophils (test code = 4.1 See_Comment [A utomated message] The Eosinophils) system which ge nerated this result tra nsmitted reference range : <=4.0. The reference r severo was not used to int erpret this result as normal/abnormal . [facility] DentonVmzfqupIKDHXYOBPM9750-25-09 10:10:00 Test Item Value Reference Range Interpretation Comments Segs-Bands # (test code = Segs-Bands #) 4.6 1.5-8.1 [facility] DentonGiffdwuEKNTOMCFIP2542-17-50 10:10:00 Test Item Value Reference Range Interpretation Comments Lymphocytes # (test code = Lymphocytes 2.6 1.0-5.5 #) [facility] DentonVqfsjwcTHDWNYRJDQ5918-40-05 10:10:00 Test Item Value Reference Range Interpretation Comments Monocytes # (test code 0.6 See_Comment [Aut omated message] The = Monocytes #) system which generated this result tra nsmitted reference range : <=0.8. The reference r severo was not used to int erpret this result as normal/abnormal . [facility] DentonJwypdlyFQUFKKZTXV0398-88-12 10:10:00 Test Item Value Reference Range Interpretation Comments Eosinophils # (test code 0.3 See_Comment [A utomated message] The = Eosinophils #) system [facility] h generated this result tra nsmitted reference range : <=0.5. The reference r severo was not used to int erpret this result as normal/abnormal . [facility] DentonRwusruoZUHQTVZRYU3825-51-00 10:10:00 Test Item Value Reference Range Interpretation Comments Basophils # (test code 0.1 See_Comment [Aut omated message] The = Basophils #) system which generated this result tra nsmitted reference range : <=0.2. The reference r severo was not used to int erpret this result as normal/abnormal . [facility]2015-11-17 10:10:00 Test Item Value Reference Range Interpretation Comments eGFR (test code = eGFR) 105 [facility]2015-11-17 10:10:00 Test Item Value Reference Range Interpretation Comments Sodium Lvl (test code = Sodium Lvl) 139 135-145 [facility]2015-11-17 10:10:00 Test Item Value Reference Range Interpretation Comments Potassium Lvl (test code = Potassium 4.0 3.5-5.1 Lvl) [facility]2015-11-17 10:10:00 Test Item Value Reference Range Interpretation Comments BUN (test code = BUN) 13 7-22 [facility]2015-11-17 10:10:00 Test Item Value Reference Range Interpretation Comments Creatinine Lvl (test code = Creatinine 0.61 0.50-1.40 Lvl) [facility]2015-11-17 10:10:00 Test Item Value Reference Range Interpretation Comments Glucose Lvl (test code = Glucose Lvl) 73 70-99 [facility]2015-11-17 10:10:00 Test Item Value Reference Range Interpretation Comments Chloride Lvl (test code = Chloride Lvl) 108 95-109 [facility]2015-11-17 10:10:00 Test Item Value Reference Range Interpretation Comments CO2 (test code = CO2) 24 24-32 [facility]2015-11-17 10:10:00 Test Item Value Reference Range Interpretation Comments Calcium Lvl (test code = Calcium Lvl) 8.0 8.5-10.5 [facility]2015-11-17 10:10:00 Test Item Value Reference Range Interpretation Comments AGAP (test code = AGAP) 11.0 10.0-20.0 [facility] DentonIhsvhraGAJENNFISU9088-39-55 10:10:00 Test Item Value Reference Range Interpretation Comments Platelet (test code = Platelet) 180 133-450 [facility] DentonWpwksayQZOUOLKELG6167-50-33 10:10:00 Test Item Value Reference Range Interpretation Comments MPV (test code = MPV) 9.8 7.4-10.4 [facility] DentonXqxanffLVYYGAWMGG7685-93-61 10:10:00 Test Item Value Reference Range Interpretation Comments RDW (test code = RDW) 12.4 11.5-14.5 [facility] DentonQtjiamvZSKYWAAZJP4304-79-39 10:10:00 Test Item Value Reference Range Interpretation Comments RBC (test code = RBC) 4.42 4.20-5.40 [facility] DentonZapyyjeITQVPVPVXS5984-69-40 10:10:00 Test Item Value Reference Range Interpretation Comments Hgb (test code = Hgb) 12.6 12.0-16.0 [facility] DentonQvldchqZGUWAINWKM2601-28-39 10:10:00 Test Item Value Reference Range Interpretation Comments MCV (test code = MCV) 89.2 80.0-98.0 [facility] DentonJpcjpxpPEGXGWPKIH7789-97-29 10:10:00 Test Item Value Reference Range Interpretation Comments MCH (test code = MCH) 28.5 pg 27.0-31.0 [facility] DentonNaayakrVNLIEGPAXP9194-97-13 10:10:00 Test Item Value Reference Range Interpretation Comments MCHC (test code = MCHC) 31.9 32.0-36.0 [facility] DentonHlbplpcQGGIDQXSXJ1574-95-97 10:10:00 Test Item Value Reference Range Interpretation Comments Hct (test code = Hct) 39.5 36.0-48.0 [facility] DentonIdvydfjQRDHNPTMQZ2518-71-11 10:10:00 Test Item Value Reference Range Interpretation Comments WBC (test code = WBC) 8.2 3.7-10.4 [facility] DentonTxituliKSCYFUKPRU4930-10-78 10:10:00 Test Item Value Reference Range Interpretation Comments Basophils (test code = 0.8 See_Comment [Aut omated message] The Basophils) system which ge nerated this result tra nsmitted reference range : <=1.0. The reference r severo was not used to int erpret this result as normal/abnormal . [facility] DentonVzkuekyFABHGCCRPD8986-49-57 10:10:00 Test Item Value Reference Range Interpretation Comments Segs (test code = Segs) 56.4 45.0-75.0 [facility] DentonBcqscpoTBNANZHAXI0409-12-84 10:10:00 Test Item Value Reference Range Interpretation Comments Lymphocytes (test code = Lymphocytes) 31.9 20.0-40.0 [facility] DentonPrdsmoyENFXWLKQUJ0056-24-44 10:10:00 Test Item Value Reference Range Interpretation Comments Monocytes (test code = Monocytes) 6.8 2.0-12.0 [facility] DentonOobctdgBTDNDVBOYS6182-44-69 10:10:00 Test Item Value Reference Range Interpretation Comments Eosinophils (test code = 4.1 See_Comment [A utomated message] The Eosinophils) system which ge nerated this result tra nsmitted reference range : <=4.0. The reference r severo was not used to int erpret this result as normal/abnormal . [facility] DentonChrrneoXADNAAXGHM7371-77-62 10:10:00 Test Item Value Reference Range Interpretation Comments Segs-Bands # (test code = Segs-Bands #) 4.6 1.5-8.1 [facility] DentonCpgvkdxUQOTBIVNWY2629-90-75 10:10:00 Test Item Value Reference Range Interpretation Comments Lymphocytes # (test code = Lymphocytes 2.6 1.0-5.5 #) [facility] DentonLgckitfTUUKIHJLBS1179-86-32 10:10:00 Test Item Value Reference Range Interpretation Comments Monocytes # (test code 0.6 See_Comment [Aut omated message] The = Monocytes #) system which generated this result tra nsmitted reference range : <=0.8. The reference r severo was not used to int erpret this result as normal/abnormal . [facility] DentonQbhvjqhGTIUVLOZWB9633-85-05 10:10:00 Test Item Value Reference Range Interpretation Comments Eosinophils # (test code 0.3 See_Comment [A utomated message] The = Eosinophils #) system whic h generated this result tra nsmitted reference range : <=0.5. The reference r severo was not used to int erpret this result as normal/abnormal . [facility] DentonYtkhvhaYACZGFDSTX7556-01-46 10:10:00 Test Item Value Reference Range Interpretation Comments Basophils # (test code 0.1 See_Comment [Aut omated message] The = Basophils #) system which generated this result tra nsmitted reference range : <=0.2. The reference r severo was not used to int erpret this result as normal/abnormal . [facility]2015-11-16 17:33:00 Test Item Value Reference Range Interpretation Comments Phosphorus (test code = Phosphorus) 3.3 2.5-4.5 [facility]2015-11-16 17:33:00 Test Item Value Reference Range Interpretation Comments Magnesium Lvl (test code = Magnesium 2.0 1.8-2.4 Lvl) [facility]2015-11-16 17:33:00 Test Item Value Reference Range Interpretation Comments Lipase Lvl (test code = Lipase Lvl) 122 73-393 [facility]2015-11-16 17:33:00 Test Item Value Reference Range Interpretation Comments Amylase Lvl (test code = Amylase Lvl) 36 25-115 [facility]2015-11-16 17:33:00 Test Item Value Reference Range Interpretation Comments A/G Ratio (test code = A/G Ratio) 0.7 0.7-1.6 [facility]2015-11-16 17:33:00 Test Item Value Reference Range Interpretation Comments B/C Ratio (test code = B/C Ratio) 24 6-25 [facility]2015-11-16 17:33:00 Test Item Value Reference Range Interpretation Comments AGAP (test code = AGAP) 11.4 10.0-20.0 [facility]2015-11-16 17:33:00 Test Item Value Reference Range Interpretation Comments Globulin (test code = Globulin) 4.6 2.0-4.0 [facility]2015-11-16 17:33:00 Test Item Value Reference Range Interpretation Comments eGFR (test code = eGFR) 71 [facility]2015-11-16 17:33:00 Test Item Value Reference Range Interpretation Comments Creatinine Lvl (test code = Creatinine 0.93 0.50-1.40 Lvl) [facility]2015-11-16 17:33:00 Test Item Value Reference Range Interpretation Comments BUN (test code = BUN) 22 7-22 [facility]2015-11-16 17:33:00 Test Item Value Reference Range Interpretation Comments Glucose Lvl (test code = Glucose Lvl) 121 70-99 [facility]2015-11-16 17:33:00 Test Item Value Reference Range Interpretation Comments Potassium Lvl (test code = Potassium 3.4 3.5-5.1 Lvl) [facility]2015-11-16 17:33:00 Test Item Value Reference Range Interpretation Comments Sodium Lvl (test code = Sodium Lvl) 135 135-145 [facility]2015-11-16 17:33:00 Test Item Value Reference Range Interpretation Comments Total Protein (test code = Total 7.8 6.4-8.4 Protein) [facility]2015-11-16 17:33:00 Test Item Value Reference Range Interpretation Comments Calcium Lvl (test code = Calcium Lvl) 8.8 8.5-10.5 [facility]2015-11-16 17:33:00 Test Item Value Reference Range Interpretation Comments CO2 (test code = CO2) 25 24-32 [facility]2015-11-16 17:33:00 Test Item Value Reference Range Interpretation Comments Chloride Lvl (test code = Chloride Lvl) 102 95-109 [facility]2015-11-16 17:33:00 Test Item Value Reference Range Interpretation Comments Alk Phos (test code = Alk Phos) 79 39-136 [facility]2015-11-16 17:33:00 Test Item Value Reference Range Interpretation Comments AST (test code = AST) 18 See_Comment [Auto mated message] The system which ge nerated this result transmit placido reference range : <=37. The reference range was not used to interpr et this result as jazzy l/abnormal. [facility]2015-11-16 17:33:00 Test Item Value Reference Range Interpretation Comments ALT (test code = ALT) 26 See_Comment [Auto mated message] The system which ge nerated this result transmit placido reference range : <=65. The reference range was not used to interpr et this result as jazzy l/abnormal. [facility]2015-11-16 17:33:00 Test Item Value Reference Range Interpretation Comments Albumin Lvl (test code = Albumin Lvl) 3.2 3.5-5.0 [facility]2015-11-16 17:33:00 Test Item Value Reference Range Interpretation Comments Bili Total (test code = Bili Total) 0.3 0.2-1.3 [id number] 17:33:00 Test Item Value Reference Range Interpretation Comments Monocytes (test code = Monocytes) 7.3 2.0-12.0 [facility] [id number] 17:33:00 Test Item Value Reference Range Interpretation Comments Segs-Bands # (test code = Segs-Bands #) 6.5 1.5-8.1 [facility] DentonFrcznufVNPJWNAEYC2480-13-79 17:33:00 Test Item Value Reference Range Interpretation Comments Basophils (test code = 1.1 See_Comment [Aut omated message] The Basophils) system which ge nerated this result tra nsmitted reference range : <=1.0. The reference r severo was not used to int erpret this result as normal/abnormal . [facility] DentonRjmgofaQNQAVNACVJ8944-28-15 17:33:00 Test Item Value Reference Range Interpretation Comments Eosinophils (test code = 2.5 See_Comment [A utomated message] The Eosinophils) system which ge nerated this result tra nsmitted reference range : <=4.0. The reference r severo was not used to int erpret this result as normal/abnormal . [facility] DentonKttwamwZMMXKHJHCB3326-05-11 17:33:00 Test Item Value Reference Range Interpretation Comments Monocytes # (test code 0.8 See_Comment [Aut omated message] The = Monocytes #) system which generated this result tra nsmitted reference range : <=0.8. The reference r severo was not used to int erpret this result as normal/abnormal . [facility] DentonFlcikdtGYTWEGBQFS4465-90-38 17:33:00 Test Item Value Reference Range Interpretation Comments Lymphocytes # (test code = Lymphocytes 3.5 1.0-5.5 #) [facility] DentonKvfeukpTAADYZNFTN5374-07-53 17:33:00 Test Item Value Reference Range Interpretation Comments Segs (test code = Segs) 57.7 45.0-75.0 [facility] DentonHmyhvpnIUPNXPSUXI1735-93-85 17:33:00 Test Item Value Reference Range Interpretation Comments Basophils # (test code 0.1 See_Comment [Aut omated message] The = Basophils #) system which generated this result tra nsmitted reference range : <=0.2. The reference r severo was not used to int erpret this result as normal/abnormal . [facility] DentonUgcsjrzELUWXFOYVY2807-64-69 17:33:00 Test Item Value Reference Range Interpretation Comments Eosinophils # (test code 0.3 See_Comment [A utomated message] The = Eosinophils #) system [employer] h generated this result tra nsmitted reference range : <=0.5. The reference r severo was not used to int erpret this result as normal/abnormal . [facility] [id number] 17:33:00 Test Item Value Reference Range Interpretation Comments Lymphocytes (test code = Lymphocytes) 31.4 20.0-40.0 [facility] Dent[id number] 17:33:00 Test Item Value Reference Range Interpretation Comments Hgb (test code = Hgb) 13.6 12.0-16.0 [facility] DentonAfjtdjfSQOEBQJRWB4401-87-46 17:33:00 Test Item Value Reference Range Interpretation Comments Platelet (test code = Platelet) 218 133-450 [facility] [id number] 17:33:00 Test Item Value Reference Range Interpretation Comments RDW (test code = RDW) 12.4 11.5-14.5 [facility] [id number] 17:33:00 Test Item Value Reference Range Interpretation Comments MCHC (test code = MCHC) 32.1 32.0-36.0 [facility] [id number] 17:33:00 Test Item Value Reference Range Interpretation Comments Hct (test code = Hct) 42.3 36.0-48.0 [facility] DentonAdokgcwRGEZIVEJTQ2374-73-44 17:33:00 Test Item Value Reference Range Interpretation Comments WBC (test code = WBC) 11.3 3.7-10.4 [facility] [id number] 17:33:00 Test Item Value Reference Range Interpretation Comments MCH (test code = MCH) 28.2 pg 27.0-31.0 [facility] [id number] 17:33:00 Test Item Value Reference Range Interpretation Comments MCV (test code = MCV) 87.8 80.0-98.0 [facility] Dent[id number] 17:33:00 Test Item Value Reference Range Interpretation Comments RBC (test code = RBC) 4.82 4.20-5.40 [facility] DentonTckifzdTYJCDRYXVP2450-09-85 17:33:00 Test Item Value Reference Range Interpretation Comments MPV (test code = MPV) 9.8 7.4-10.4 [facility] AND [id number] 17:33:00 Test Item Value Reference Range Interpretation Comments UA Urobilinogen (test code = UA <=1.0 mg/dL 0.1-1.0 Urobilinogen) [facility] AND [id number] 17:33:00 Test Item Value Reference Range Interpretation Comments UA Leuk Est (test Negative (06/19/15 11:33 code = UA Leuk Est) AM) [facility] AND [id number] 17:33:00 Test Item Value Reference Range Interpretation Comments UA Bacteria (test code = UA Many /HPF Bacteria) [facility] AND [id number] 17:33:00 Test Item Value Reference Range Interpretation Comments UA WBC (test code = 81 See_Comment [Automa placido message] The UA WBC) system which ge nerated this result transmit placido reference range : <=5. The reference range was not used to interpr et this result as jazzy l/abnormal. [facility] AND [id number] 17:33:00 Test Item Value Reference Range Interpretation Comments UA Sq Epi (test code = UA Sq Epi) Few /LPF [facility] AND [id number] 17:33:00 Test Item Value Reference Range Interpretation Comments UA Nitrite (test code Negative (06/19/15 = UA Nitrite) 11:33 AM) [facility] AND [id number] 17:33:00 Test Item Value Reference Range Interpretation Comments UA Mucus (test code = UA Mucus) Many /LPF [facility] AND [id number] 17:33:00 Test Item Value Reference Range Interpretation Comments UA Protein (test code = UA Negative mg/dL Protein) [facility] AND [id number] 17:33:00 Test Item Value Reference Range Interpretation Comments UA Glucose (test code = UA Glucose) 500 mg/dL [facility] AND [id number] 17:33:00 Test Item Value Reference Range Interpretation Comments UA pH (test code = UA pH) 5.0 5.0-8.0 [facility] AND [id number] 17:33:00 Test Item Value Reference Range Interpretation Comments UA Spec Grav (test code = UA Spec Grav) 1.035 [facility] AND [id number] 17:33:00 Test Item Value Reference Range Interpretation Comments UA Bili (test code = Negative *NA*(06/19/15 UA Bili) 11:33 AM) [facility] AND [id number] 17:33:00 Test Item Value Reference Range Interpretation Comments UA Ketones (test code = UA Negative mg/dL Ketones) [facility] AND [id number] 17:33:00 Test Item Value Reference Range Interpretation Comments UA Blood (test code = Negative (06/19/15 11:33 UA Blood) AM) [facility] AND [id number] 17:33:00 Test Item Value Reference Range Interpretation Comments UA Turbidity (test code Marked *ABN*(06/19/15 = UA Turbidity) 11:33 AM) [facility] AND [id number] 17:33:00 Test Item Value Reference Range Interpretation Comments UA Color (test code = Yellow *NA*(06/19/15 UA Color) 11:33 AM) [facility]2015-11-16 17:33:00 Test Item Value Reference Range Interpretation Comments Phosphorus (test code = Phosphorus) 3.3 2.5-4.5 [facility]2015-11-16 17:33:00 Test Item Value Reference Range Interpretation Comments Magnesium Lvl (test code = Magnesium 2.0 1.8-2.4 Lvl) [facility]2015-11-16 17:33:00 Test Item Value Reference Range Interpretation Comments Lipase Lvl (test code = Lipase Lvl) 122 73-393 [facility]2015-11-16 17:33:00 Test Item Value Reference Range Interpretation Comments Amylase Lvl (test code = Amylase Lvl) 36 25-115 [facility]2015-11-16 17:33:00 Test Item Value Reference Range Interpretation Comments A/G Ratio (test code = A/G Ratio) 0.7 0.7-1.6 [facility]2015-11-16 17:33:00 Test Item Value Reference Range Interpretation Comments B/C Ratio (test code = B/C Ratio) 24 6-25 [facility]2015-11-16 17:33:00 Test Item Value Reference Range Interpretation Comments AGAP (test code = AGAP) 11.4 10.0-20.0 [facility]2015-11-16 17:33:00 Test Item Value Reference Range Interpretation Comments Globulin (test code = Globulin) 4.6 2.0-4.0 [facility]2015-11-16 17:33:00 Test Item Value Reference Range Interpretation Comments eGFR (test code = eGFR) 71 [facility]2015-11-16 17:33:00 Test Item Value Reference Range Interpretation Comments Creatinine Lvl (test code = Creatinine 0.93 0.50-1.40 Lvl) [facility]2015-11-16 17:33:00 Test Item Value Reference Range Interpretation Comments BUN (test code = BUN) 22 7-22 [facility]2015-11-16 17:33:00 Test Item Value Reference Range Interpretation Comments Glucose Lvl (test code = Glucose Lvl) 121 70-99 [facility]2015-11-16 17:33:00 Test Item Value Reference Range Interpretation Comments Potassium Lvl (test code = Potassium 3.4 3.5-5.1 Lvl) [facility]2015-11-16 17:33:00 Test Item Value Reference Range Interpretation Comments Sodium Lvl (test code = Sodium Lvl) 135 135-145 [facility]2015-11-16 17:33:00 Test Item Value Reference Range Interpretation Comments Total Protein (test code = Total 7.8 6.4-8.4 Protein) [facility]2015-11-16 17:33:00 Test Item Value Reference Range Interpretation Comments Calcium Lvl (test code = Calcium Lvl) 8.8 8.5-10.5 [facility]2015-11-16 17:33:00 Test Item Value Reference Range Interpretation Comments CO2 (test code = CO2) 25 24-32 [facility]2015-11-16 17:33:00 Test Item Value Reference Range Interpretation Comments Chloride Lvl (test code = Chloride Lvl) 102 95-109 [facility]2015-11-16 17:33:00 Test Item Value Reference Range Interpretation Comments Alk Phos (test code = Alk Phos) 79 39-136 [facility]2015-11-16 17:33:00 Test Item Value Reference Range Interpretation Comments AST (test code = AST) 18 See_Comment [Auto mated message] The system which ge nerated this result transmit placido reference range : <=37. The reference range was not used to interpr et this result as jazzy l/abnormal. [facility]2015-11-16 17:33:00 Test Item Value Reference Range Interpretation Comments ALT (test code = ALT) 26 See_Comment [Auto mated message] The system which ge nerated this result transmit placido reference range : <=65. The reference range was not used to interpr et this result as jazzy l/abnormal. [facility]2015-11-16 17:33:00 Test Item Value Reference Range Interpretation Comments Albumin Lvl (test code = Albumin Lvl) 3.2 3.5-5.0 [facility]2015-11-16 17:33:00 Test Item Value Reference Range Interpretation Comments Bili Total (test code = Bili Total) 0.3 0.2-1.3 [place] 461375-11-16 17:33:00 Test Item Value Reference Range Interpretation Comments Monocytes (test code = Monocytes) 7.3 2.0-12.0 [id number] 17:33:00 Test Item Value Reference Range Interpretation Comments Segs-Bands # (test code = Segs-Bands #) 6.5 1.5-8.1 [facility] [id number] 17:33:00 Test Item Value Reference Range Interpretation Comments Basophils (test code = 1.1 See_Comment [Aut omated message] The Basophils) system which ge nerated this result tra nsmitted reference range : <=1.0. The reference r severo was not used to int erpret this result as normal/abnormal . [facility] DentonJbxoyfeYKSDJIQREH5318-33-14 17:33:00 Test Item Value Reference Range Interpretation Comments Eosinophils (test code = 2.5 See_Comment [A utomated message] The Eosinophils) system which ge nerated this result tra nsmitted reference range : <=4.0. The reference r severo was not used to int erpret this result as normal/abnormal . [place] 461375-11-16 17:33:00 Test Item Value Reference Range Interpretation Comments Monocytes # (test code 0.8 See_Comment [Aut omated message] The = Monocytes #) system which generated this result tra nsmitted reference range : <=0.8. The reference r severo was not used to int erpret this result as normal/abnormal . [facility] [id number] 17:33:00 Test Item Value Reference Range Interpretation Comments Lymphocytes # (test code = Lymphocytes 3.5 1.0-5.5 #) [facility] [id number] 17:33:00 Test Item Value Reference Range Interpretation Comments Segs (test code = Segs) 57.7 45.0-75.0 [facility] DentonTetgvrwUYEPOBKCAQ4638-16-19 17:33:00 Test Item Value Reference Range Interpretation Comments Basophils # (test code 0.1 See_Comment [Aut omated message] The = Basophils #) system which generated this result tra nsmitted reference range : <=0.2. The reference r severo was not used to int erpret this result as normal/abnormal . [facility] [id number] 17:33:00 Test Item Value Reference Range Interpretation Comments Eosinophils # (test code 0.3 See_Comment [A utomated message] The = Eosinophils #) system whic h generated this result tra nsmitted reference range : <=0.5. The reference r severo was not used to int erpret this result as normal/abnormal . [facility] [id number] 17:33:00 Test Item Value Reference Range Interpretation Comments Lymphocytes (test code = Lymphocytes) 31.4 20.0-40.0 [facility] DentonRxqduegHZFFHVNQCE8701-07-39 17:33:00 Test Item Value Reference Range Interpretation Comments Hgb (test code = Hgb) 13.6 12.0-16.0 [facility] [id number] 17:33:00 Test Item Value Reference Range Interpretation Comments Platelet (test code = Platelet) 218 133-450 [facility] [id number] 17:33:00 Test Item Value Reference Range Interpretation Comments RDW (test code = RDW) 12.4 11.5-14.5 [facility] [id number] 17:33:00 Test Item Value Reference Range Interpretation Comments MCHC (test code = MCHC) 32.1 32.0-36.0 [facility] [id number] 17:33:00 Test Item Value Reference Range Interpretation Comments Hct (test code = Hct) 42.3 36.0-48.0 [facility] [id number] 17:33:00 Test Item Value Reference Range Interpretation Comments WBC (test code = WBC) 11.3 3.7-10.4 [facility] [id number] 17:33:00 Test Item Value Reference Range Interpretation Comments MCH (test code = MCH) 28.2 pg 27.0-31.0 [facility] [id number] 17:33:00 Test Item Value Reference Range Interpretation Comments MCV (test code = MCV) 87.8 80.0-98.0 [facility] [id number] 17:33:00 Test Item Value Reference Range Interpretation Comments RBC (test code = RBC) 4.82 4.20-5.40 [facility] [id number] 17:33:00 Test Item Value Reference Range Interpretation Comments MPV (test code = MPV) 9.8 7.4-10.4 [facility] AND [id number] 17:33:00 Test Item Value Reference Range Interpretation Comments UA Urobilinogen (test code = UA <=1.0 mg/dL 0.1-1.0 Urobilinogen) [facility] AND [id number] 17:33:00 Test Item Value Reference Range Interpretation Comments UA Leuk Est (test Negative (06/19/15 11:33 code = UA Leuk Est) AM) [facility] AND [id number] 17:33:00 Test Item Value Reference Range Interpretation Comments UA Bacteria (test code = UA Many /HPF Bacteria) [facility] AND [id number] 17:33:00 Test Item Value Reference Range Interpretation Comments UA WBC (test code = 81 See_Comment [Automa placido message] The UA WBC) system which ge nerated this result transmit placido reference range : <=5. The reference range was not used to interpr et this result as jazzy l/abnormal. [facility] AND [id number] 17:33:00 Test Item Value Reference Range Interpretation Comments UA Sq Epi (test code = UA Sq Epi) [facility] [id number] 17:33:00 Test Item Value Reference Range Interpretation Comments UA Nitrite (test code Negative (06/19/15 = UA Nitrite) 11:33 AM) [facility] [id number] 17:33:00 Test Item Value Reference Range Interpretation Comments UA Mucus (test code = UA Mucus) Many /LPF [facility] [id number] 17:33:00 Test Item Value Reference Range Interpretation Comments UA Protein (test code = UA Negative mg/dL Protein) [facility] [id number] 17:33:00 Test Item Value Reference Range Interpretation Comments UA Glucose (test code = UA Glucose) 500 mg/dL [facility] AND [id number] 17:33:00 Test Item Value Reference Range Interpretation Comments UA pH (test code = UA pH) 5.0 5.0-8.0 [facility] [id number] 17:33:00 Test Item Value Reference Range Interpretation Comments UA Spec Grav (test code = UA Spec Grav) 1.035 [facility] [id number] 17:33:00 Test Item Value Reference Range Interpretation Comments UA Bili (test code = Negative *NA*(06/19/15 UA Bili) 11:33 AM) [facility] AND [id number] 17:33:00 Test Item Value Reference Range Interpretation Comments UA Ketones (test code = UA Negative mg/dL Ketones) [facility] [id number] 17:33:00 Test Item Value Reference Range Interpretation Comments UA Blood (test code = Negative (06/19/15 11:33 UA Blood) AM) [facility] [id number] 17:33:00 Test Item Value Reference Range Interpretation Comments UA Turbidity (test code Marked *ABN*(06/19/15 = UA Turbidity) 11:33 AM) [facility] AND [id number] 17:33:00 Test Item Value Reference Range Interpretation Comments UA Color (test code = Yellow *NA*(06/19/15 UA Color) 11:33 AM) [facility] [id number] 17:33:00 Test Item Value Reference Range Interpretation Comments Phosphorus (test code = Phosphorus) 3.3 2.5-4.5 [facility]2015-11-16 17:33:00 Test Item Value Reference Range Interpretation Comments Magnesium Lvl (test code = Magnesium 2.0 1.8-2.4 Lvl) [facility]2015-11-16 17:33:00 Test Item Value Reference Range Interpretation Comments Lipase Lvl (test code = Lipase Lvl) 122 73-393 [facility]2015-11-16 17:33:00 Test Item Value Reference Range Interpretation Comments Amylase Lvl (test code = Amylase Lvl) 36 25-115 [facility]2015-11-16 17:33:00 Test Item Value Reference Range Interpretation Comments A/G Ratio (test code = A/G Ratio) 0.7 0.7-1.6 [facility]2015-11-16 17:33:00 Test Item Value Reference Range Interpretation Comments B/C Ratio (test code = B/C Ratio) 24 6-25 [facility]2015-11-16 17:33:00 Test Item Value Reference Range Interpretation Comments AGAP (test code = AGAP) 11.4 10.0-20.0 [facility]2015-11-16 17:33:00 Test Item Value Reference Range Interpretation Comments Globulin (test code = Globulin) 4.6 2.0-4.0 [facility]2015-11-16 17:33:00 Test Item Value Reference Range Interpretation Comments eGFR (test code = eGFR) 71 [facility]2015-11-16 17:33:00 Test Item Value Reference Range Interpretation Comments Creatinine Lvl (test code = Creatinine 0.93 0.50-1.40 Lvl) [facility]2015-11-16 17:33:00 Test Item Value Reference Range Interpretation Comments BUN (test code = BUN) 22 7-22 [facility]2015-11-16 17:33:00 Test Item Value Reference Range Interpretation Comments Glucose Lvl (test code = Glucose Lvl) 121 70-99 [facility]2015-11-16 17:33:00 Test Item Value Reference Range Interpretation Comments Potassium Lvl (test code = Potassium 3.4 3.5-5.1 Lvl) [facility]2015-11-16 17:33:00 Test Item Value Reference Range Interpretation Comments Sodium Lvl (test code = Sodium Lvl) 135 135-145 [facility] [place] 17:33:00 Test Item Value Reference Range Interpretation Comments Total Protein (test code = Total 7.8 6.4-8.4 Protein) [facility]2015-11-16 17:33:00 Test Item Value Reference Range Interpretation Comments Calcium Lvl (test code = Calcium Lvl) 8.8 8.5-10.5 [facility]2015-11-16 17:33:00 Test Item Value Reference Range Interpretation Comments CO2 (test code = CO2) 25 24-32 [facility] [place]2015-11-16 17:33:00 Test Item Value Reference Range Interpretation Comments Chloride Lvl (test code = Chloride Lvl) 102 95-109 [facility] [place]2015-11-16 17:33:00 Test Item Value Reference Range Interpretation Comments Alk Phos (test code = Alk Phos) 79 39-136 [facility] [place]2015-11-16 17:33:00 Test Item Value Reference Range Interpretation Comments AST (test code = AST) 18 See_Comment [Auto mated message] The system which ge nerated this result transmit placido reference range : <=37. The reference range was not used to interpr et this result as jazzy l/abnormal. [facility] [place]2015-11-16 17:33:00 Test Item Value Reference Range Interpretation Comments ALT (test code = ALT) 26 See_Comment [Auto mated message] The system which ge nerated this result transmit placido reference range : <=65. The reference range was not used to interpr et this result as jazzy l/abnormal. [facility]2015-11-16 17:33:00 Test Item Value Reference Range Interpretation Comments Albumin Lvl (test code = Albumin Lvl) 3.2 3.5-5.0 [facility]2015-11-16 17:33:00 Test Item Value Reference Range Interpretation Comments Bili Total (test code = Bili Total) 0.3 0.2-1.3 [facility]XHBIFGSG2795[facility] 17:33:00 Test Item Value Reference Range Interpretation Comments Monocytes (test code = Monocytes) 7.3 2.0-12.0 [facility]WekydzdJRWNYPWWLJ3391-06-92 17:33:00 Test Item Value Reference Range Interpretation Comments Segs-Bands # (test code = Segs-Bands #) 6.5 1.5-8.1 [facility]entonOqrudspWURGGEUYXA1495-51-60 17:33:00 Test Item Value Reference Range Interpretation Comments Basophils (test code = 1.1 See_Comment [Aut omated message] The Basophils) system which ge nerated this result tra nsmitted reference range : <=1.0. The reference r severo was not used to int erpret this result as normal/abnormal . [facility] [id number] 17:33:00 Test Item Value Reference Range Interpretation Comments Eosinophils (test code = 2.5 See_Comment [A utomated message] The Eosinophils) system which ge nerated this result tra nsmitted reference range : <=4.0. The reference r severo was not used to int erpret this result as normal/abnormal . [facility] DentonXihhehmFAJTWPQQEF2926-19-83 17:33:00 Test Item Value Reference Range Interpretation Comments Monocytes # (test code 0.8 See_Comment [Aut omated message] The = Monocytes #) system which generated this result tra nsmitted reference range : <=0.8. The reference r severo was not used to int erpret this result as normal/abnormal . [facility] DentonHxtalklOKUSBRGCAA6380-88-30 17:33:00 Test Item Value Reference Range Interpretation Comments Lymphocytes # (test code = Lymphocytes 3.5 1.0-5.5 #) [facility] DentonTqkxgdnCLRETZOVAW9714-11-75 17:33:00 Test Item Value Reference Range Interpretation Comments Segs (test code = Segs) 57.7 45.0-75.0 [facility] DentonAwetsuhHQBJGFSTGS8600-27-81 17:33:00 Test Item Value Reference Range Interpretation Comments Basophils # (test code 0.1 See_Comment [Aut omated message] The = Basophils #) system which generated this result tra nsmitted reference range : <=0.2. The reference r severo was not used to int erpret this result as normal/abnormal . [facility] [id number] 17:33:00 Test Item Value Reference Range Interpretation Comments Eosinophils # (test code 0.3 See_Comment [A utomated message] The = Eosinophils #) system [employer] h generated this result tra nsmitted reference range : <=0.5. The reference r severo was not used to int erpret this result as normal/abnormal . [facility] DentonLkgteydPNTJDFYSGW9236-36-15 17:33:00 Test Item Value Reference Range Interpretation Comments Lymphocytes (test code = Lymphocytes) 31.4 20.0-40.0 [facility] DentonUtulejpOGQBCETOQZ0464-81-81 17:33:00 Test Item Value Reference Range Interpretation Comments Hgb (test code = Hgb) 13.6 12.0-16.0 [facility] DentonCzqzmlfTVEFPJVOFG9188-66-79 17:33:00 Test Item Value Reference Range Interpretation Comments Platelet (test code = Platelet) 218 133-450 [facility] [id number] 17:33:00 Test Item Value Reference Range Interpretation Comments RDW (test code = RDW) 12.4 11.5-14.5 [facility] DentonWhkmmdcWZYGKDIKNN4127-03-12 17:33:00 Test Item Value Reference Range Interpretation Comments MCHC (test code = MCHC) 32.1 32.0-36.0 [facility] [id number] 17:33:00 Test Item Value Reference Range Interpretation Comments Hct (test code = Hct) 42.3 36.0-48.0 [facility] DentonHlqlanyTHJALVTRRJ6791-60-08 17:33:00 Test Item Value Reference Range Interpretation Comments WBC (test code = WBC) 11.3 3.7-10.4 [facility] [id number] 17:33:00 Test Item Value Reference Range Interpretation Comments MCH (test code = MCH) 28.2 pg 27.0-31.0 [facility] [id number] 17:33:00 Test Item Value Reference Range Interpretation Comments MCV (test code = MCV) 87.8 80.0-98.0 [facility] DentonIxnetrtEDJWTKAPQQ6424-28-66 17:33:00 Test Item Value Reference Range Interpretation Comments RBC (test code = RBC) 4.82 4.20-5.40 [facility] DentonBjwetatWKUZKPSADF6163-00-67 17:33:00 Test Item Value Reference Range Interpretation Comments MPV (test code = MPV) 9.8 7.4-10.4 [facility] AND [id number] 17:33:00 Test Item Value Reference Range Interpretation Comments UA Urobilinogen (test code = UA <=1.0 mg/dL 0.1-1.0 Urobilinogen) [facility] AND [id number] 17:33:00 Test Item Value Reference Range Interpretation Comments UA Leuk Est (test Negative (06/19/15 11:33 code = UA Leuk Est) AM) [facility] AND [id number] 17:33:00 Test Item Value Reference Range Interpretation Comments UA Bacteria (test code = UA Many /HPF Bacteria) [facility] AND [id number] 17:33:00 Test Item Value Reference Range Interpretation Comments UA WBC (test code = 81 See_Comment [Automa placido message] The UA WBC) system which ge nerated this result transmit placido reference range : <=5. The reference range was not used to interpr et this result as jazzy l/abnormal. [facility] AND [id number] 17:33:00 Test Item Value Reference Range Interpretation Comments UA Sq Epi (test code = UA Sq Epi) Few /LPF [facility] AND [id number] 17:33:00 Test Item Value Reference Range Interpretation Comments UA Nitrite (test code Negative (06/19/15 = UA Nitrite) 11:33 AM) [facility] AND [id number] 17:33:00 Test Item Value Reference Range Interpretation Comments UA Mucus (test code = UA Mucus) Many /LPF [facility] AND [id number] 17:33:00 Test Item Value Reference Range Interpretation Comments UA Protein (test code = UA Negative mg/dL Protein) [facility] AND [id number] 17:33:00 Test Item Value Reference Range Interpretation Comments UA Glucose (test code = UA Glucose) 500 mg/dL [facility] AND [id number] 17:33:00 Test Item Value Reference Range Interpretation Comments UA pH (test code = UA pH) 5.0 5.0-8.0 [facility] AND [id number] 17:33:00 Test Item Value Reference Range Interpretation Comments UA Spec Grav (test code = UA Spec Grav) 1.035 [facility] AND [id number] 17:33:00 Test Item Value Reference Range Interpretation Comments UA Bili (test code = Negative *NA*(06/19/15 UA Bili) 11:33 AM) [facility] AND [id number] 17:33:00 Test Item Value Reference Range Interpretation Comments UA Ketones (test code = UA Negative mg/dL Ketones) [facility] AND [id number] 17:33:00 Test Item Value Reference Range Interpretation Comments UA Blood (test code = Negative (06/19/15 11:33 UA Blood) AM) [facility] AND [id number] 17:33:00 Test Item Value Reference Range Interpretation Comments UA Turbidity (test code Marked *ABN*(06/19/15 = UA Turbidity) 11:33 AM) [facility] AND [id number] 17:33:00 Test Item Value Reference Range Interpretation Comments UA Color (test code = Yellow *NA*(06/19/15 UA Color) 11:33 AM) [facility]2015-11-16 17:33:00 Test Item Value Reference Range Interpretation Comments Phosphorus (test code = Phosphorus) 3.3 2.5-4.5 [facility]2015-11-16 17:33:00 Test Item Value Reference Range Interpretation Comments Magnesium Lvl (test code = Magnesium 2.0 1.8-2.4 Lvl) [facility]2015-11-16 17:33:00 Test Item Value Reference Range Interpretation Comments Lipase Lvl (test code = Lipase Lvl) 122 73-393 [facility]2015-11-16 17:33:00 Test Item Value Reference Range Interpretation Comments Amylase Lvl (test code = Amylase Lvl) 36 25-115 [facility]2015-11-16 17:33:00 Test Item Value Reference Range Interpretation Comments A/G Ratio (test code = A/G Ratio) 0.7 0.7-1.6 [facility]2015-11-16 17:33:00 Test Item Value Reference Range Interpretation Comments B/C Ratio (test code = B/C Ratio) 24 6-25 [facility]2015-11-16 17:33:00 Test Item Value Reference Range Interpretation Comments AGAP (test code = AGAP) 11.4 10.0-20.0 [facility]2015-11-16 17:33:00 Test Item Value Reference Range Interpretation Comments Globulin (test code = Globulin) 4.6 2.0-4.0 [facility]2015-11-16 17:33:00 Test Item Value Reference Range Interpretation Comments eGFR (test code = eGFR) 71 [facility]2015-11-16 17:33:00 Test Item Value Reference Range Interpretation Comments Creatinine Lvl (test code = Creatinine 0.93 0.50-1.40 Lvl) [facility]2015-11-16 17:33:00 Test Item Value Reference Range Interpretation Comments BUN (test code = BUN) 22 7-22 [facility]2015-11-16 17:33:00 Test Item Value Reference Range Interpretation Comments Glucose Lvl (test code = Glucose Lvl) 121 70-99 [facility]2015-11-16 17:33:00 Test Item Value Reference Range Interpretation Comments Potassium Lvl (test code = Potassium 3.4 3.5-5.1 Lvl) [facility]2015-11-16 17:33:00 Test Item Value Reference Range Interpretation Comments Sodium Lvl (test code = Sodium Lvl) 135 135-145 [facility]2015-11-16 17:33:00 Test Item Value Reference Range Interpretation Comments Total Protein (test code = Total 7.8 6.4-8.4 Protein) [facility]2015-11-16 17:33:00 Test Item Value Reference Range Interpretation Comments Calcium Lvl (test code = Calcium Lvl) 8.8 8.5-10.5 [facility]2015-11-16 17:33:00 Test Item Value Reference Range Interpretation Comments CO2 (test code = CO2) 25 24-32 [facility]2015-11-16 17:33:00 Test Item Value Reference Range Interpretation Comments Chloride Lvl (test code = Chloride Lvl) 102 95-109 [facility]2015-11-16 17:33:00 Test Item Value Reference Range Interpretation Comments Alk Phos (test code = Alk Phos) 79 39-136 [facility]2015-11-16 17:33:00 Test Item Value Reference Range Interpretation Comments AST (test code = AST) 18 See_Comment [Auto mated message] The system which ge nerated this result transmit placido reference range : <=37. The reference range was not used to interpr et this result as jazzy l/abnormal. [facility]2015-11-16 17:33:00 Test Item Value Reference Range Interpretation Comments ALT (test code = ALT) 26 See_Comment [Auto mated message] The system which ge nerated this result transmit placido reference range : <=65. The reference range was not used to interpr et this result as jazzy l/abnormal. [facility]2015-11-16 17:33:00 Test Item Value Reference Range Interpretation Comments Albumin Lvl (test code = Albumin Lvl) 3.2 3.5-5.0 [facility]2015-11-16 17:33:00 Test Item Value Reference Range Interpretation Comments Bili Total (test code = Bili Total) 0.3 0.2-1.3 [id number] 17:33:00 Test Item Value Reference Range Interpretation Comments Monocytes (test code = Monocytes) 7.3 2.0-12.0 [facility] [id number] 17:33:00 Test Item Value Reference Range Interpretation Comments Segs-Bands # (test code = Segs-Bands #) 6.5 1.5-8.1 [facility] [id number] 17:33:00 Test Item Value Reference Range Interpretation Comments Basophils (test code = 1.1 See_Comment [Aut omated message] The Basophils) system which ge nerated this result tra nsmitted reference range : <=1.0. The reference r severo was not used to int erpret this result as normal/abnormal . [facility] [id number] 17:33:00 Test Item Value Reference Range Interpretation Comments Eosinophils (test code = 2.5 See_Comment [A utomated message] The Eosinophils) system which ge nerated this result tra nsmitted reference range : <=4.0. The reference r severo was not used to int erpret this result as normal/abnormal . [facility] DentonCmchywyZALPCWAPQE2392-63-95 17:33:00 Test Item Value Reference Range Interpretation Comments Monocytes # (test code 0.8 See_Comment [Aut omated message] The = Monocytes #) system which generated this result tra nsmitted reference range : <=0.8. The reference r severo was not used to int erpret this result as normal/abnormal . [facility] [id number] 17:33:00 Test Item Value Reference Range Interpretation Comments Lymphocytes # (test code = Lymphocytes 3.5 1.0-5.5 #) [facility] DentonDwmppppKXTPXGCKVA2546-92-10 17:33:00 Test Item Value Reference Range Interpretation Comments Segs (test code = Segs) 57.7 45.0-75.0 [facility] [id number] 17:33:00 Test Item Value Reference Range Interpretation Comments Basophils # (test code 0.1 See_Comment [Aut omated message] The = Basophils #) system which generated this result tra nsmitted reference range : <=0.2. The reference r severo was not used to int erpret this result as normal/abnormal . [facility] DentonTnlrlbiBTSIMUIPQI8877-66-59 17:33:00 Test Item Value Reference Range Interpretation Comments Eosinophils # (test code 0.3 See_Comment [A utomated message] The = Eosinophils #) system whic h generated this result tra nsmitted reference range : <=0.5. The reference r severo was not used to int erpret this result as normal/abnormal . [facility] [id number] 17:33:00 Test Item Value Reference Range Interpretation Comments Lymphocytes (test code = Lymphocytes) 31.4 20.0-40.0 [facility] [id number] 17:33:00 Test Item Value Reference Range Interpretation Comments Hgb (test code = Hgb) 13.6 12.0-16.0 [facility] DentonKivpyucBKEXWGDJHK0827-29-52 17:33:00 Test Item Value Reference Range Interpretation Comments Platelet (test code = Platelet) 218 133-450 [facility] [id number] 17:33:00 Test Item Value Reference Range Interpretation Comments RDW (test code = RDW) 12.4 11.5-14.5 [facility] [id number] 17:33:00 Test Item Value Reference Range Interpretation Comments MCHC (test code = MCHC) 32.1 32.0-36.0 [facility] [id number] 17:33:00 Test Item Value Reference Range Interpretation Comments Hct (test code = Hct) 42.3 36.0-48.0 [facility] DentonOigqqqvVUYBCBIBKV5636-81-43 17:33:00 Test Item Value Reference Range Interpretation Comments WBC (test code = WBC) 11.3 3.7-10.4 [facility] [id number] 17:33:00 Test Item Value Reference Range Interpretation Comments MCH (test code = MCH) 28.2 pg 27.0-31.0 [facility] [id number] 17:33:00 Test Item Value Reference Range Interpretation Comments MCV (test code = MCV) 87.8 80.0-98.0 [facility] DentonZmumvxiFIJQZROGCZ6748-26-25 17:33:00 Test Item Value Reference Range Interpretation Comments RBC (test code = RBC) 4.82 4.20-5.40 [facility] DentonOaoajqlCOSVRZLHWE0420-10-03 17:33:00 Test Item Value Reference Range Interpretation Comments MPV (test code = MPV) 9.8 7.4-10.4 [facility] [place]2015-11-16 17:33:00 Test Item Value Reference Range Interpretation Comments UA Urobilinogen (test code = UA <=1.0 mg/dL 0.1-1.0 Urobilinogen) [facility] AND [id number] 17:33:00 Test Item Value Reference Range Interpretation Comments UA Leuk Est (test Negative (06/19/15 11:33 code = UA Leuk Est) AM) [facility] AND [id number] 17:33:00 Test Item Value Reference Range Interpretation Comments UA Bacteria (test code = UA Many /HPF Bacteria) [facility] AND [id number] 17:33:00 Test Item Value Reference Range Interpretation Comments UA WBC (test code = 81 See_Comment [Automa placido message] The UA WBC) system which ge nerated this result transmit placido reference range : <=5. The reference range was not used to interpr et this result as jazzy l/abnormal. [facility] AND [id number] 17:33:00 Test Item Value Reference Range Interpretation Comments UA Sq Epi (test code = UA Sq Epi) Few /LPF [facility]2015-11-16 17:33:00 Test Item Value Reference Range Interpretation Comments UA Nitrite (test code Negative (06/19/15 = UA Nitrite) 11:33 AM) [facility] AND [id number] 17:33:00 Test Item Value Reference Range Interpretation Comments UA Mucus (test code = UA Mucus) Many /LPF [facility] AND [id number] 17:33:00 Test Item Value Reference Range Interpretation Comments UA Protein (test code = UA Negative mg/dL Protein) [facility] AND [id number] 17:33:00 Test Item Value Reference Range Interpretation Comments UA Glucose (test code = UA Glucose) 500 mg/dL [facility] AND [id number] 17:33:00 Test Item Value Reference Range Interpretation Comments UA pH (test code = UA pH) 5.0 5.0-8.0 [facility] AND [id number] 17:33:00 Test Item Value Reference Range Interpretation Comments UA Spec Grav (test code = UA Spec Grav) 1.035 [facility] AND [id number] 17:33:00 Test Item Value Reference Range Interpretation Comments UA Bili (test code = Negative *NA*(06/19/15 UA Bili) 11:33 AM) [facility] AND [id number] 17:33:00 Test Item Value Reference Range Interpretation Comments UA Ketones (test code = UA Negative mg/dL Ketones) [facility] AND [id number] 17:33:00 Test Item Value Reference Range Interpretation Comments UA Blood (test code = Negative (06/19/15 11:33 UA Blood) AM) [facility] AND [id number] 17:33:00 Test Item Value Reference Range Interpretation Comments UA Turbidity (test code Marked *ABN*(06/19/15 = UA Turbidity) 11:33 AM) [facility] AND [id number] 17:33:00 Test Item Value Reference Range Interpretation Comments UA Color (test code = Yellow *NA*(06/19/15 UA Color) 11:33 AM) [facility] [id number] 17:33:00 Test Item Value Reference Range Interpretation Comments Phosphorus (test code = Phosphorus) 3.3 2.5-4.5 [facility] [id number] 17:33:00 Test Item Value Reference Range Interpretation Comments Magnesium Lvl (test code = Magnesium 2.0 1.8-2.4 Lvl) [facility]2015-11-16 17:33:00 Test Item Value Reference Range Interpretation Comments Lipase Lvl (test code = Lipase Lvl) 122 73-393 [facility]2015-11-16 17:33:00 Test Item Value Reference Range Interpretation Comments Amylase Lvl (test code = Amylase Lvl) 36 25-115 [facility]2015-11-16 17:33:00 Test Item Value Reference Range Interpretation Comments A/G Ratio (test code = A/G Ratio) 0.7 0.7-1.6 [facility]2015-11-16 17:33:00 Test Item Value Reference Range Interpretation Comments B/C Ratio (test code = B/C Ratio) 24 6-25 [facility]2015-11-16 17:33:00 Test Item Value Reference Range Interpretation Comments AGAP (test code = AGAP) 11.4 10.0-20.0 [facility]2015-11-16 17:33:00 Test Item Value Reference Range Interpretation Comments Globulin (test code = Globulin) 4.6 2.0-4.0 [facility]2015-11-16 17:33:00 Test Item Value Reference Range Interpretation Comments eGFR (test code = eGFR) 71 [facility]2015-11-16 17:33:00 Test Item Value Reference Range Interpretation Comments Creatinine Lvl (test code = Creatinine 0.93 0.50-1.40 Lvl) [facility]2015-11-16 17:33:00 Test Item Value Reference Range Interpretation Comments BUN (test code = BUN) 22 7-22 [facility]2015-11-16 17:33:00 Test Item Value Reference Range Interpretation Comments Glucose Lvl (test code = Glucose Lvl) 121 70-99 [facility]2015-11-16 17:33:00 Test Item Value Reference Range Interpretation Comments Potassium Lvl (test code = Potassium 3.4 3.5-5.1 Lvl) [facility]2015-11-16 17:33:00 Test Item Value Reference Range Interpretation Comments Sodium Lvl (test code = Sodium Lvl) 135 135-145 [facility]2015-11-16 17:33:00 Test Item Value Reference Range Interpretation Comments Total Protein (test code = Total 7.8 6.4-8.4 Protein) [facility]2015-11-16 17:33:00 Test Item Value Reference Range Interpretation Comments Calcium Lvl (test code = Calcium Lvl) 8.8 8.5-10.5 [facility]2015-11-16 17:33:00 Test Item Value Reference Range Interpretation Comments CO2 (test code = CO2) 25 24-32 [facility]2015-11-16 17:33:00 Test Item Value Reference Range Interpretation Comments Chloride Lvl (test code = Chloride Lvl) 102 95-109 [facility]2015-11-16 17:33:00 Test Item Value Reference Range Interpretation Comments Alk Phos (test code = Alk Phos) 79 39-136 [facility]2015-11-16 17:33:00 Test Item Value Reference Range Interpretation Comments AST (test code = AST) 18 See_Comment [Auto mated message] The system which ge nerated this result transmit placido reference range : <=37. The reference range was not used to interpr et this result as jazzy l/abnormal. [facility]2015-11-16 17:33:00 Test Item Value Reference Range Interpretation Comments ALT (test code = ALT) 26 See_Comment [Auto mated message] The system which ge nerated this result transmit placido reference range : <=65. The reference range was not used to interpr et this result as jazzy l/abnormal. [facility]2015-11-16 17:33:00 Test Item Value Reference Range Interpretation Comments Albumin Lvl (test code = Albumin Lvl) 3.2 3.5-5.0 [facility]2015-11-16 17:33:00 Test Item Value Reference Range Interpretation Comments Bili Total (test code = Bili Total) 0.3 0.2-1.3 [facility]entonVyocryhTRKOQCFFYO5851-37-05 17:33:00 Test Item Value Reference Range Interpretation Comments Monocytes (test code = Monocytes) 7.3 2.0-12.0 [place] [id number] 17:33:00 Test Item Value Reference Range Interpretation Comments Segs-Bands # (test code = Segs-Bands #) 6.5 1.5-8.1 [facility]entonVoigspgSLSWLCZDZB6131-01-40 17:33:00 Test Item Value Reference Range Interpretation Comments Basophils (test code = 1.1 See_Comment [Aut omated message] The Basophils) system which ge nerated this result tra nsmitted reference range : <=1.0. The reference r severo was not used to int erpret this result as normal/abnormal . [facility] DentonRqtdvexZJACXCKGNK3798-16-54 17:33:00 Test Item Value Reference Range Interpretation Comments Eosinophils (test code = 2.5 See_Comment [A utomated message] The Eosinophils) system which ge nerated this result tra nsmitted reference range : <=4.0. The reference r severo was not used to int erpret this result as normal/abnormal . [facility] DentonTotscjwMFDGFLFAZC3516-68-75 17:33:00 Test Item Value Reference Range Interpretation Comments Monocytes # (test code 0.8 See_Comment [Aut omated message] The = Monocytes #) system which generated this result tra nsmitted reference range : <=0.8. The reference r severo was not used to int erpret this result as normal/abnormal . [facility] DentonGpyqhamWCSJKANVBX9416-18-64 17:33:00 Test Item Value Reference Range Interpretation Comments Lymphocytes # (test code = Lymphocytes 3.5 1.0-5.5 #) [facility] DentonNqyfxazIIFKMNXGXS3105-73-96 17:33:00 Test Item Value Reference Range Interpretation Comments Segs (test code = Segs) 57.7 45.0-75.0 [facility] DentonUrqgthiMHYHWPQMHD1231-99-49 17:33:00 Test Item Value Reference Range Interpretation Comments Basophils # (test code 0.1 See_Comment [Aut omated message] The = Basophils #) system which generated this result tra nsmitted reference range : <=0.2. The reference r severo was not used to int erpret this result as normal/abnormal . [facility] DentonDbscbmxLNHQBNOROA3821-03-80 17:33:00 Test Item Value Reference Range Interpretation Comments Eosinophils # (test code 0.3 See_Comment [A utomated message] The = Eosinophils #) system whic h generated this result tra nsmitted reference range : <=0.5. The reference r severo was not used to int erpret this result as normal/abnormal . [facility]WhlxaanWWNGLXBBKL8107-67-46 17:33:00 Test Item Value Reference Range Interpretation Comments Lymphocytes (test code = Lymphocytes) 31.4 20.0-40.0 [facility] CenterGuazlhvNVKBCLKLXT9159-90-01 17:33:00 Test Item Value Reference Range Interpretation Comments Hgb (test code = Hgb) 13.6 12.0-16.0 [facility] CenterDuxucpmQJEAMOJUEO1232-07-45 17:33:00 Test Item Value Reference Range Interpretation Comments Platelet (test code = Platelet) 218 133-450 [facility] CenterMitbkkoOFJBMCPBWJ5230-27-78 17:33:00 Test Item Value Reference Range Interpretation Comments RDW (test code = RDW) 12.4 11.5-14.5 [facility] CenterRblzsrkZRGSXTTUWA3459-86-41 17:33:00 Test Item Value Reference Range Interpretation Comments MCHC (test code = MCHC) 32.1 32.0-36.0 [facility] CenterEcrbekgWDMGFRAROU0567-22-06 17:33:00 Test Item Value Reference Range Interpretation Comments Hct (test code = Hct) 42.3 36.0-48.0 [facility] CenterLafdeylBOZVVTCVMM5798-52-08 17:33:00 Test Item Value Reference Range Interpretation Comments WBC (test code = WBC) 11.3 3.7-10.4 [facility] CenterAiesfpfNDQGKPVIDL5502-75-05 17:33:00 Test Item Value Reference Range Interpretation Comments MCH (test code = MCH) 28.2 pg 27.0-31.0 [facility] CenterHdhsupyJWDTTCUEFE6507-41-71 17:33:00 Test Item Value Reference Range Interpretation Comments MCV (test code = MCV) 87.8 80.0-98.0 [facility] CenterQdpdcpuMQISHNDRAB9808-80-29 17:33:00 Test Item Value Reference Range Interpretation Comments RBC (test code = RBC) 4.82 4.20-5.40 [facility] CenterGwzylivVTHKAEUGZH4769-96-61 17:33:00 Test Item Value Reference Range Interpretation Comments MPV (test code = MPV) 9.8 7.4-10.4 [facility] AND [id number] 17:33:00 Test Item Value Reference Range Interpretation Comments UA Urobilinogen (test code = UA <=1.0 mg/dL 0.1-1.0 Urobilinogen) [facility] AND [id number] 17:33:00 Test Item Value Reference Range Interpretation Comments UA Leuk Est (test Negative (06/19/15 11:33 code = UA Leuk Est) AM) [facility] AND [id number] 17:33:00 Test Item Value Reference Range Interpretation Comments UA Bacteria (test code = UA Many /HPF Bacteria) [facility] AND [id number] 17:33:00 Test Item Value Reference Range Interpretation Comments UA WBC (test code = 81 See_Comment [Automa placido message] The UA WBC) system which ge nerated this result transmit placido reference range : <=5. The reference range was not used to interpr et this result as jazzy l/abnormal. [facility] AND [id number] 17:33:00 Test Item Value Reference Range Interpretation Comments UA Sq Epi (test code = UA Sq Epi) Few /LPF [facility] AND [id number] 17:33:00 Test Item Value Reference Range Interpretation Comments UA Nitrite (test code Negative (06/19/15 = UA Nitrite) 11:33 AM) [facility] AND [id number] 17:33:00 Test Item Value Reference Range Interpretation Comments UA Mucus (test code = UA Mucus) Many /LPF [facility] AND [id number] 17:33:00 Test Item Value Reference Range Interpretation Comments UA Protein (test code = UA Negative mg/dL Protein) [facility] AND [id number] 17:33:00 Test Item Value Reference Range Interpretation Comments UA Glucose (test code = UA Glucose) 500 mg/dL [facility] AND [id number] 17:33:00 Test Item Value Reference Range Interpretation Comments UA pH (test code = UA pH) 5.0 5.0-8.0 [facility] AND [id number] 17:33:00 Test Item Value Reference Range Interpretation Comments UA Spec Grav (test code = UA Spec Grav) 1.035 [facility] AND [id number] 17:33:00 Test Item Value Reference Range Interpretation Comments UA Bili (test code = Negative *NA*(06/19/15 UA Bili) 11:33 AM) [facility] AND [id number] 17:33:00 Test Item Value Reference Range Interpretation Comments UA Ketones (test code = UA Negative mg/dL Ketones) [facility] AND [id number] 17:33:00 Test Item Value Reference Range Interpretation Comments UA Blood (test code = Negative (06/19/15 11:33 UA Blood) AM) [facility] AND [id number] 17:33:00 Test Item Value Reference Range Interpretation Comments UA Turbidity (test code Marked *ABN*(06/19/15 = UA Turbidity) 11:33 AM) [facility] AND [id number] 17:33:00 Test Item Value Reference Range Interpretation Comments UA Color (test code = Yellow *NA*(06/19/15 UA Color) 11:33 AM) [facility]2015-11-16 17:33:00 Test Item Value Reference Range Interpretation Comments Phosphorus (test code = Phosphorus) 3.3 2.5-4.5 [facility]2015-11-16 17:33:00 Test Item Value Reference Range Interpretation Comments Magnesium Lvl (test code = Magnesium 2.0 1.8-2.4 Lvl) [facility]2015-11-16 17:33:00 Test Item Value Reference Range Interpretation Comments Lipase Lvl (test code = Lipase Lvl) 122 73-393 [facility]2015-11-16 17:33:00 Test Item Value Reference Range Interpretation Comments Amylase Lvl (test code = Amylase Lvl) 36 25-115 [facility]2015-11-16 17:33:00 Test Item Value Reference Range Interpretation Comments A/G Ratio (test code = A/G Ratio) 0.7 0.7-1.6 [facility]2015-11-16 17:33:00 Test Item Value Reference Range Interpretation Comments B/C Ratio (test code = B/C Ratio) 24 6-25 [facility]2015-11-16 17:33:00 Test Item Value Reference Range Interpretation Comments AGAP (test code = AGAP) 11.4 10.0-20.0 [facility]2015-11-16 17:33:00 Test Item Value Reference Range Interpretation Comments Globulin (test code = Globulin) 4.6 2.0-4.0 [facility]2015-11-16 17:33:00 Test Item Value Reference Range Interpretation Comments eGFR (test code = eGFR) 71 [facility]2015-11-16 17:33:00 Test Item Value Reference Range Interpretation Comments Creatinine Lvl (test code = Creatinine 0.93 0.50-1.40 Lvl) [facility]2015-11-16 17:33:00 Test Item Value Reference Range Interpretation Comments BUN (test code = BUN) 22 7-22 [facility]2015-11-16 17:33:00 Test Item Value Reference Range Interpretation Comments Glucose Lvl (test code = Glucose Lvl) 121 70-99 [facility]2015-11-16 17:33:00 Test Item Value Reference Range Interpretation Comments Potassium Lvl (test code = Potassium 3.4 3.5-5.1 Lvl) [facility]2015-11-16 17:33:00 Test Item Value Reference Range Interpretation Comments Sodium Lvl (test code = Sodium Lvl) 135 135-145 [facility]2015-11-16 17:33:00 Test Item Value Reference Range Interpretation Comments Total Protein (test code = Total 7.8 6.4-8.4 Protein) [facility]2015-11-16 17:33:00 Test Item Value Reference Range Interpretation Comments Calcium Lvl (test code = Calcium Lvl) 8.8 8.5-10.5 [facility]2015-11-16 17:33:00 Test Item Value Reference Range Interpretation Comments CO2 (test code = CO2) 25 24-32 [facility]2015-11-16 17:33:00 Test Item Value Reference Range Interpretation Comments Chloride Lvl (test code = Chloride Lvl) 102 95-109 [facility]2015-11-16 17:33:00 Test Item Value Reference Range Interpretation Comments Alk Phos (test code = Alk Phos) 79 39-136 [facility]2015-11-16 17:33:00 Test Item Value Reference Range Interpretation Comments AST (test code = AST) 18 See_Comment [Auto mated message] The system which ge nerated this result transmit placido reference range : <=37. The reference range was not used to interpr et this result as jazzy l/abnormal. [facility]2015-11-16 17:33:00 Test Item Value Reference Range Interpretation Comments ALT (test code = ALT) 26 See_Comment [Auto mated message] The system which ge nerated this result transmit placido reference range : <=65. The reference range was not used to interpr et this result as jazzy l/abnormal. [facility]2015-11-16 17:33:00 Test Item Value Reference Range Interpretation Comments Albumin Lvl (test code = Albumin Lvl) 3.2 3.5-5.0 [facility]2015-11-16 17:33:00 Test Item Value Reference Range Interpretation Comments Bili Total (test code = Bili Total) 0.3 0.2-1.3 [place] [id number] 17:33:00 Test Item Value Reference Range Interpretation Comments Monocytes (test code = Monocytes) 7.3 2.0-12.0 [facility]entonGetlhhjRMEOZAEKJF7099-02-07 17:33:00 Test Item Value Reference Range Interpretation Comments Segs-Bands # (test code = Segs-Bands #) 6.5 1.5-8.1 [facility] DentonKenpctxYVVEPXWKQK6751-94-54 17:33:00 Test Item Value Reference Range Interpretation Comments Basophils (test code = 1.1 See_Comment [Aut omated message] The Basophils) system which ge nerated this result tra nsmitted reference range : <=1.0. The reference r severo was not used to int erpret this result as normal/abnormal . [facility] DentonReebheyDCPXQVJAHN9179-13-25 17:33:00 Test Item Value Reference Range Interpretation Comments Eosinophils (test code = 2.5 See_Comment [A utomated message] The Eosinophils) system which ge nerated this result tra nsmitted reference range : <=4.0. The reference r severo was not used to int erpret this result as normal/abnormal . [facility] DentonVrodajxUNJOXNOUHK6802-27-57 17:33:00 Test Item Value Reference Range Interpretation Comments Monocytes # (test code 0.8 See_Comment [Aut omated message] The = Monocytes #) system which generated this result tra nsmitted reference range : <=0.8. The reference r severo was not used to int erpret this result as normal/abnormal . [facility] Dent[id number] 17:33:00 Test Item Value Reference Range Interpretation Comments Lymphocytes # (test code = Lymphocytes 3.5 1.0-5.5 #) [facility] DentonYzyaasuXZCYRMSDOL7709-50-15 17:33:00 Test Item Value Reference Range Interpretation Comments Segs (test code = Segs) 57.7 45.0-75.0 [facility] Dent[id number] 17:33:00 Test Item Value Reference Range Interpretation Comments Basophils # (test code 0.1 See_Comment [Aut omated message] The = Basophils #) system which generated this result tra nsmitted reference range : <=0.2. The reference r severo was not used to int erpret this result as normal/abnormal . [facility] DentonLgdloaeDTBALHVLUM9714-19-03 17:33:00 Test Item Value Reference Range Interpretation Comments Eosinophils # (test code 0.3 See_Comment [A utomated message] The = Eosinophils #) system whic h generated this result tra nsmitted reference range : <=0.5. The reference r severo was not used to int erpret this result as normal/abnormal . [facility] DentonFzbharySCHEOAXLGR5624-07-81 17:33:00 Test Item Value Reference Range Interpretation Comments Lymphocytes (test code = Lymphocytes) 31.4 20.0-40.0 [facility] DentonQfndusbWEUKQDDRYJ4873-05-62 17:33:00 Test Item Value Reference Range Interpretation Comments Hgb (test code = Hgb) 13.6 12.0-16.0 [facility] DentonDhxgsvhGDEEAVPFHG3051-15-80 17:33:00 Test Item Value Reference Range Interpretation Comments Platelet (test code = Platelet) 218 133-450 [facility] [id number] 17:33:00 Test Item Value Reference Range Interpretation Comments RDW (test code = RDW) 12.4 11.5-14.5 [facility] Dent[id number] 17:33:00 Test Item Value Reference Range Interpretation Comments MCHC (test code = MCHC) 32.1 32.0-36.0 [facility] DentonSytpsibRJXFNSNCQS3570-01-50 17:33:00 Test Item Value Reference Range Interpretation Comments Hct (test code = Hct) 42.3 36.0-48.0 [facility] DentonKbrjfshJJNFNQENSG8826-12-88 17:33:00 Test Item Value Reference Range Interpretation Comments WBC (test code = WBC) 11.3 3.7-10.4 [facility] [id number] 17:33:00 Test Item Value Reference Range Interpretation Comments MCH (test code = MCH) 28.2 pg 27.0-31.0 [facility] [id number] 17:33:00 Test Item Value Reference Range Interpretation Comments MCV (test code = MCV) 87.8 80.0-98.0 [facility] DentonRylebvgYWNIWLDBFL3508-95-11 17:33:00 Test Item Value Reference Range Interpretation Comments RBC (test code = RBC) 4.82 4.20-5.40 [facility] DentonZyarumdWXDUJDNYGQ0980-03-26 17:33:00 Test Item Value Reference Range Interpretation Comments MPV (test code = MPV) 9.8 7.4-10.4 [facility] AND [id number] 17:33:00 Test Item Value Reference Range Interpretation Comments UA Urobilinogen (test code = UA <=1.0 mg/dL 0.1-1.0 Urobilinogen) [facility] AND [id number] 17:33:00 Test Item Value Reference Range Interpretation Comments UA Leuk Est (test Negative (06/19/15 11:33 code = UA Leuk Est) AM) [facility] AND [id number] 17:33:00 Test Item Value Reference Range Interpretation Comments UA Bacteria (test code = UA Many /HPF Bacteria) [facility] AND [id number] 17:33:00 Test Item Value Reference Range Interpretation Comments UA WBC (test code = 81 See_Comment [Automa placido message] The UA WBC) system which ge nerated this result transmit placido reference range : <=5. The reference range was not used to interpr et this result as jazzy l/abnormal. [facility] AND [id number] 17:33:00 Test Item Value Reference Range Interpretation Comments UA Sq Epi (test code = UA Sq Epi) Few /LPF [facility] AND [id number] 17:33:00 Test Item Value Reference Range Interpretation Comments UA Nitrite (test code Negative (06/19/15 = UA Nitrite) 11:33 AM) [facility] AND [id number] 17:33:00 Test Item Value Reference Range Interpretation Comments UA Mucus (test code = UA Mucus) Many /LPF [facility] AND [id number] 17:33:00 Test Item Value Reference Range Interpretation Comments UA Protein (test code = UA Negative mg/dL Protein) [facility] AND [id number] 17:33:00 Test Item Value Reference Range Interpretation Comments UA Glucose (test code = UA Glucose) 500 mg/dL [facility] AND [id number] 17:33:00 Test Item Value Reference Range Interpretation Comments UA pH (test code = UA pH) 5.0 5.0-8.0 [facility] AND [id number] 17:33:00 Test Item Value Reference Range Interpretation Comments UA Spec Grav (test code = UA Spec Grav) 1.035 [facility] AND [id number] 17:33:00 Test Item Value Reference Range Interpretation Comments UA Bili (test code = Negative *NA*(06/19/15 UA Bili) 11:33 AM) [facility] AND [id number] 17:33:00 Test Item Value Reference Range Interpretation Comments UA Ketones (test code = UA Negative mg/dL Ketones) [facility] AND [id number] 17:33:00 Test Item Value Reference Range Interpretation Comments UA Blood (test code = Negative (06/19/15 11:33 UA Blood) AM) [facility] AND [id number] 17:33:00 Test Item Value Reference Range Interpretation Comments UA Turbidity (test code Marked *ABN*(06/19/15 = UA Turbidity) 11:33 AM) [facility] AND [id number] 17:33:00 Test Item Value Reference Range Interpretation Comments UA Color (test code = Yellow *NA*(06/19/15 UA Color) 11:33 AM) [facility]annCHE[facility] [id number] 17:33:00 Test Item Value Reference Range Interpretation Comments Phosphorus (test code = Phosphorus) 3.3 2.5-4.5 [facility] CenterannCHEM [id number] 17:33:00 Test Item Value Reference Range Interpretation Comments Magnesium Lvl (test code = Magnesium 2.0 1.8-2.4 Lvl) [facility]2015-11-16 17:33:00 Test Item Value Reference Range Interpretation Comments Lipase Lvl (test code = Lipase Lvl) 122 73-393 [facility]2015-11-16 17:33:00 Test Item Value Reference Range Interpretation Comments Amylase Lvl (test code = Amylase Lvl) 36 25-115 [facility]2015-11-16 17:33:00 Test Item Value Reference Range Interpretation Comments A/G Ratio (test code = A/G Ratio) 0.7 0.7-1.6 [facility]2015-11-16 17:33:00 Test Item Value Reference Range Interpretation Comments B/C Ratio (test code = B/C Ratio) 24 6-25 [facility]2015-11-16 17:33:00 Test Item Value Reference Range Interpretation Comments AGAP (test code = AGAP) 11.4 10.0-20.0 [facility]2015-11-16 17:33:00 Test Item Value Reference Range Interpretation Comments Globulin (test code = Globulin) 4.6 2.0-4.0 [facility]2015-11-16 17:33:00 Test Item Value Reference Range Interpretation Comments eGFR (test code = eGFR) 71 [facility]2015-11-16 17:33:00 Test Item Value Reference Range Interpretation Comments Creatinine Lvl (test code = Creatinine 0.93 0.50-1.40 Lvl) [facility]2015-11-16 17:33:00 Test Item Value Reference Range Interpretation Comments BUN (test code = BUN) 22 7-22 [facility]2015-11-16 17:33:00 Test Item Value Reference Range Interpretation Comments Glucose Lvl (test code = Glucose Lvl) 121 70-99 [facility]2015-11-16 17:33:00 Test Item Value Reference Range Interpretation Comments Potassium Lvl (test code = Potassium 3.4 3.5-5.1 Lvl) [facility]2015-11-16 17:33:00 Test Item Value Reference Range Interpretation Comments Sodium Lvl (test code = Sodium Lvl) 135 135-145 [facility]2015-11-16 17:33:00 Test Item Value Reference Range Interpretation Comments Total Protein (test code = Total 7.8 6.4-8.4 Protein) [facility]2015-11-16 17:33:00 Test Item Value Reference Range Interpretation Comments Calcium Lvl (test code = Calcium Lvl) 8.8 8.5-10.5 [place] [id number] 17:33:00 Test Item Value Reference Range Interpretation Comments CO2 (test code = CO2) 25 24-32 [facility]2015-11-16 17:33:00 Test Item Value Reference Range Interpretation Comments Chloride Lvl (test code = Chloride Lvl) 102 95-109 [place] [id number] 17:33:00 Test Item Value Reference Range Interpretation Comments Alk Phos (test code = Alk Phos) 79 39-136 [place] 950135-11-16 17:33:00 Test Item Value Reference Range Interpretation Comments AST (test code = AST) 18 See_Comment [Auto mated message] The system which ge nerated this result transmit placido reference range : <=37. The reference range was not used to interpr et this result as jazzy l/abnormal. [facility]2015-11-16 17:33:00 Test Item Value Reference Range Interpretation Comments ALT (test code = ALT) 26 See_Comment [Auto mated message] The system which ge nerated this result transmit placido reference range : <=65. The reference range was not used to interpr et this result as jazzy l/abnormal. [facility]2015-11-16 17:33:00 Test Item Value Reference Range Interpretation Comments Albumin Lvl (test code = Albumin Lvl) 3.2 3.5-5.0 [facility]2015-11-16 17:33:00 Test Item Value Reference Range Interpretation Comments Bili Total (test code = Bili Total) 0.3 0.2-1.3 [facility]entonFlpzvcvEXVIPDKXZY3283-66-16 17:33:00 Test Item Value Reference Range Interpretation Comments Monocytes (test code = Monocytes) 7.3 2.0-12.0 [facility] DentonYwpswgxHHGONKJGSF1782-52-61 17:33:00 Test Item Value Reference Range Interpretation Comments Segs-Bands # (test code = Segs-Bands #) 6.5 1.5-8.1 [facility] DentonXocejewCDDQEJOPEK9335-62-43 17:33:00 Test Item Value Reference Range Interpretation Comments Basophils (test code = 1.1 See_Comment [Aut omated message] The Basophils) system which ge nerated this result tra nsmitted reference range : <=1.0. The reference r severo was not used to int erpret this result as normal/abnormal . [facility] DentonWjdsebrGLRYRHGJDI9597-03-40 17:33:00 Test Item Value Reference Range Interpretation Comments Eosinophils (test code = 2.5 See_Comment [A utomated message] The Eosinophils) system which ge nerated this result tra nsmitted reference range : <=4.0. The reference r severo was not used to int erpret this result as normal/abnormal . [facility] DentonIwihrqvNXHYFRRHPI7209-74-64 17:33:00 Test Item Value Reference Range Interpretation Comments Monocytes # (test code 0.8 See_Comment [Aut omated message] The = Monocytes #) system which generated this result tra nsmitted reference range : <=0.8. The reference r severo was not used to int erpret this result as normal/abnormal . [facility] DentonGchsuyvJGIUSRTTSK4758-69-62 17:33:00 Test Item Value Reference Range Interpretation Comments Lymphocytes # (test code = Lymphocytes 3.5 1.0-5.5 #) [facility] DentonXvwttweIIGGXRAJFK1639-62-56 17:33:00 Test Item Value Reference Range Interpretation Comments Segs (test code = Segs) 57.7 45.0-75.0 [facility] DentonPjtnjzgHPWPZHISZA9688-82-66 17:33:00 Test Item Value Reference Range Interpretation Comments Basophils # (test code 0.1 See_Comment [Aut omated message] The = Basophils #) system which generated this result tra nsmitted reference range : <=0.2. The reference r severo was not used to int erpret this result as normal/abnormal . [facility] DentonNwjfcpoYJLYDEVUOA6065-19-40 17:33:00 Test Item Value Reference Range Interpretation Comments Eosinophils # (test code 0.3 See_Comment [A utomated message] The = Eosinophils #) system whic h generated this result tra nsmitted reference range : <=0.5. The reference r severo was not used to int erpret this result as normal/abnormal . [facility]FsksgeuPIHSUEMVPL5554-52-04 17:33:00 Test Item Value Reference Range Interpretation Comments Lymphocytes (test code = Lymphocytes) 31.4 20.0-40.0 [facility] CenterMwztzhnZUXEMUTEFI3268-12-02 17:33:00 Test Item Value Reference Range Interpretation Comments Hgb (test code = Hgb) 13.6 12.0-16.0 [facility] CenterHcvrvebKCKOMTQIMZ1410-89-97 17:33:00 Test Item Value Reference Range Interpretation Comments Platelet (test code = Platelet) 218 133-450 [facility] CenterFffxsfpGIBMBQAAQY5305-13-33 17:33:00 Test Item Value Reference Range Interpretation Comments RDW (test code = RDW) 12.4 11.5-14.5 [facility] CenterJawpaweIKVNELEARL3700-21-34 17:33:00 Test Item Value Reference Range Interpretation Comments MCHC (test code = MCHC) 32.1 32.0-36.0 [facility]EDZ3469[facility]-92 17:33:00 Test Item Value Reference Range Interpretation Comments Hct (test code = Hct) 42.3 36.0-48.0 [facility] CenterOrzcimlQCLZIASYWJ5803-89-34 17:33:00 Test Item Value Reference Range Interpretation Comments WBC (test code = WBC) 11.3 3.7-10.4 [facility] CenterVvzpwcfICAFCJQKPA0209-54-31 17:33:00 Test Item Value Reference Range Interpretation Comments MCH (test code = MCH) 28.2 pg 27.0-31.0 [facility] HospitalRyxnqmrKNMCBWMXVF2553-11-00 17:33:00 Test Item Value Reference Range Interpretation Comments MCV (test code = MCV) 87.8 80.0-98.0 [facility] CenterNblslwtCSMIOJSLXX4341-27-59 17:33:00 Test Item Value Reference Range Interpretation Comments RBC (test code = RBC) 4.82 4.20-5.40 [facility] CenterCeaphpjSZQJFFMSWY1435-33-23 17:33:00 Test Item Value Reference Range Interpretation Comments MPV (test code = MPV) 9.8 7.4-10.4 [facility] AND [id number] 17:33:00 Test Item Value Reference Range Interpretation Comments UA Urobilinogen (test code = UA <=1.0 mg/dL 0.1-1.0 Urobilinogen) [facility] AND [id number] 17:33:00 Test Item Value Reference Range Interpretation Comments UA Leuk Est (test Negative (06/19/15 11:33 code = UA Leuk Est) AM) [facility] AND [id number] 17:33:00 Test Item Value Reference Range Interpretation Comments UA Bacteria (test code = UA Many /HPF Bacteria) [facility] AND [id number] 17:33:00 Test Item Value Reference Range Interpretation Comments UA WBC (test code = 81 See_Comment [Automa placido message] The UA WBC) system which ge nerated this result transmit placido reference range : <=5. The reference range was not used to interpr et this result as jzazy l/abnormal. [facility] AND [id number] 17:33:00 Test Item Value Reference Range Interpretation Comments UA Sq Epi (test code = UA Sq Epi) Few /LPF [facility] AND [id number] 17:33:00 Test Item Value Reference Range Interpretation Comments UA Nitrite (test code Negative (06/19/15 = UA Nitrite) 11:33 AM) [facility] AND [id number] 17:33:00 Test Item Value Reference Range Interpretation Comments UA Mucus (test code = UA Mucus) Many /LPF [facility] AND [id number] 17:33:00 Test Item Value Reference Range Interpretation Comments UA Protein (test code = UA Negative mg/dL Protein) [facility] AND [id number] 17:33:00 Test Item Value Reference Range Interpretation Comments UA Glucose (test code = UA Glucose) 500 mg/dL [facility] AND [id number] 17:33:00 Test Item Value Reference Range Interpretation Comments UA pH (test code = UA pH) 5.0 5.0-8.0 [facility] AND [id number] 17:33:00 Test Item Value Reference Range Interpretation Comments UA Spec Grav (test code = UA Spec Grav) 1.035 [facility] AND [id number] 17:33:00 Test Item Value Reference Range Interpretation Comments UA Bili (test code = Negative *NA*(06/19/15 UA Bili) 11:33 AM) [facility] AND [id number] 17:33:00 Test Item Value Reference Range Interpretation Comments UA Ketones (test code = UA Negative mg/dL Ketones) [facility] AND [id number] 17:33:00 Test Item Value Reference Range Interpretation Comments UA Blood (test code = Negative (06/19/15 11:33 UA Blood) AM) [facility] AND [id number] 17:33:00 Test Item Value Reference Range Interpretation Comments UA Turbidity (test code Marked *ABN*(06/19/15 = UA Turbidity) 11:33 AM) [facility] AND [id number] 17:33:00 Test Item Value Reference Range Interpretation Comments UA Color (test code = Yellow *NA*(06/19/15 UA Color) 11:33 AM) [facility]2015-11-16 17:33:00 Test Item Value Reference Range Interpretation Comments Phosphorus (test code = Phosphorus) 3.3 2.5-4.5 [facility]2015-11-16 17:33:00 Test Item Value Reference Range Interpretation Comments Magnesium Lvl (test code = Magnesium 2.0 1.8-2.4 Lvl) [facility]2015-11-16 17:33:00 Test Item Value Reference Range Interpretation Comments Lipase Lvl (test code = Lipase Lvl) 122 73-393 [facility]2015-11-16 17:33:00 Test Item Value Reference Range Interpretation Comments Amylase Lvl (test code = Amylase Lvl) 36 25-115 [facility]2015-11-16 17:33:00 Test Item Value Reference Range Interpretation Comments A/G Ratio (test code = A/G Ratio) 0.7 0.7-1.6 [facility]2015-11-16 17:33:00 Test Item Value Reference Range Interpretation Comments B/C Ratio (test code = B/C Ratio) 24 6-25 [facility]2015-11-16 17:33:00 Test Item Value Reference Range Interpretation Comments AGAP (test code = AGAP) 11.4 10.0-20.0 [facility]2015-11-16 17:33:00 Test Item Value Reference Range Interpretation Comments Globulin (test code = Globulin) 4.6 2.0-4.0 [place] [id number] 17:33:00 Test Item Value Reference Range Interpretation Comments eGFR (test code = eGFR) 71 [facility]2015-11-16 17:33:00 Test Item Value Reference Range Interpretation Comments Creatinine Lvl (test code = Creatinine 0.93 0.50-1.40 Lvl) [facility]2015-11-16 17:33:00 Test Item Value Reference Range Interpretation Comments BUN (test code = BUN) 22 7-22 [facility]2015-11-16 17:33:00 Test Item Value Reference Range Interpretation Comments Glucose Lvl (test code = Glucose Lvl) 121 70-99 [facility]2015-11-16 17:33:00 Test Item Value Reference Range Interpretation Comments Potassium Lvl (test code = Potassium 3.4 3.5-5.1 Lvl) [facility]2015-11-16 17:33:00 Test Item Value Reference Range Interpretation Comments Sodium Lvl (test code = Sodium Lvl) 135 135-145 [facility]2015-11-16 17:33:00 Test Item Value Reference Range Interpretation Comments Total Protein (test code = Total 7.8 6.4-8.4 Protein) [facility]2015-11-16 17:33:00 Test Item Value Reference Range Interpretation Comments Calcium Lvl (test code = Calcium Lvl) 8.8 8.5-10.5 [facility]2015-11-16 17:33:00 Test Item Value Reference Range Interpretation Comments CO2 (test code = CO2) 25 24-32 [facility]2015-11-16 17:33:00 Test Item Value Reference Range Interpretation Comments Chloride Lvl (test code = Chloride Lvl) 102 95-109 [facility]2015-11-16 17:33:00 Test Item Value Reference Range Interpretation Comments Alk Phos (test code = Alk Phos) 79 39-136 [facility]2015-11-16 17:33:00 Test Item Value Reference Range Interpretation Comments AST (test code = AST) 18 See_Comment [Auto mated message] The system which ge nerated this result transmit placido reference range : <=37. The reference range was not used to interpr et this result as jazzy l/abnormal. [place] [id number] 17:33:00 Test Item Value Reference Range Interpretation Comments ALT (test code = ALT) 26 See_Comment [Auto mated message] The system which ge nerated this result transmit placido reference range : <=65. The reference range was not used to interpr et this result as jazzy l/abnormal. [facility]2015-11-16 17:33:00 Test Item Value Reference Range Interpretation Comments Albumin Lvl (test code = Albumin Lvl) 3.2 3.5-5.0 [facility]2015-11-16 17:33:00 Test Item Value Reference Range Interpretation Comments Bili Total (test code = Bili Total) 0.3 0.2-1.3 [facility]entonWxarcfrMCWPOWKKDT2391-39-45 17:33:00 Test Item Value Reference Range Interpretation Comments Monocytes (test code = Monocytes) 7.3 2.0-12.0 [facility] DentonQhxjjfuFEQOKLMGQE4109-89-00 17:33:00 Test Item Value Reference Range Interpretation Comments Segs-Bands # (test code = Segs-Bands #) 6.5 1.5-8.1 [place] [id number] 17:33:00 Test Item Value Reference Range Interpretation Comments Basophils (test code = 1.1 See_Comment [Aut omated message] The Basophils) system which ge nerated this result tra nsmitted reference range : <=1.0. The reference r severo was not used to int erpret this result as normal/abnormal . [facility]entonEgpzukfTTBKBGWDHJ2627-76-19 17:33:00 Test Item Value Reference Range Interpretation Comments Eosinophils (test code = 2.5 See_Comment [A utomated message] The Eosinophils) system which ge nerated this result tra nsmitted reference range : <=4.0. The reference r severo was not used to int erpret this result as normal/abnormal . [facility] DentonOdfeiofNHJFKTMBHO8120-78-25 17:33:00 Test Item Value Reference Range Interpretation Comments Monocytes # (test code 0.8 See_Comment [Aut omated message] The = Monocytes #) system which generated this result tra nsmitted reference range : <=0.8. The reference r severo was not used to int erpret this result as normal/abnormal . [facility] DentonLfhkwoiLIXKGTZYAT8598-76-08 17:33:00 Test Item Value Reference Range Interpretation Comments Lymphocytes # (test code = Lymphocytes 3.5 1.0-5.5 #) [facility] DentonGbubrbvLBTJWJIZZT6026-49-62 17:33:00 Test Item Value Reference Range Interpretation Comments Segs (test code = Segs) 57.7 45.0-75.0 [facility] DentonTnuwctyJWQSYDRXRP3128-56-85 17:33:00 Test Item Value Reference Range Interpretation Comments Basophils # (test code 0.1 See_Comment [Aut omated message] The = Basophils #) system which generated this result tra nsmitted reference range : <=0.2. The reference r severo was not used to int erpret this result as normal/abnormal . [facility] DentonNjgchjuUYNARSODDY2221-75-90 17:33:00 Test Item Value Reference Range Interpretation Comments Eosinophils # (test code 0.3 See_Comment [A utomated message] The = Eosinophils #) system whic h generated this result tra nsmitted reference range : <=0.5. The reference r severo was not used to int erpret this result as normal/abnormal . [facility] DentonNixghbrBJPQDIMRZS1704-01-61 17:33:00 Test Item Value Reference Range Interpretation Comments Lymphocytes (test code = Lymphocytes) 31.4 20.0-40.0 [facility] DentonXfxrmtkVZFGOFXCTH5502-60-33 17:33:00 Test Item Value Reference Range Interpretation Comments Hgb (test code = Hgb) 13.6 12.0-16.0 [facility] DentonNsbgrugGERWORRXVP6921-86-99 17:33:00 Test Item Value Reference Range Interpretation Comments Platelet (test code = Platelet) 218 133-450 [facility] DentonLgptuzeOKTLPAJOKW9962-79-92 17:33:00 Test Item Value Reference Range Interpretation Comments RDW (test code = RDW) 12.4 11.5-14.5 [facility] DentonKiqqnquVCUHZAFWNU1851-92-14 17:33:00 Test Item Value Reference Range Interpretation Comments MCHC (test code = MCHC) 32.1 32.0-36.0 [facility] DentonIocnnshADQSGXNFFN2184-95-05 17:33:00 Test Item Value Reference Range Interpretation Comments Hct (test code = Hct) 42.3 36.0-48.0 [facility] DentonBcyplocSSMVOSOSBI5254-62-11 17:33:00 Test Item Value Reference Range Interpretation Comments WBC (test code = WBC) 11.3 3.7-10.4 [facility] DentonXqgoktcHDJYSJUBTN7148-68-22 17:33:00 Test Item Value Reference Range Interpretation Comments MCH (test code = MCH) 28.2 pg 27.0-31.0 [facility] DentonGlutdfcWODBHEETQY8023-67-02 17:33:00 Test Item Value Reference Range Interpretation Comments MCV (test code = MCV) 87.8 80.0-98.0 [facility] DentonZfwbwapKRFJODKGJK5299-10-59 17:33:00 Test Item Value Reference Range Interpretation Comments RBC (test code = RBC) 4.82 4.20-5.40 [facility] DentonYkgskgbOHOMOFUSVG7006-36-91 17:33:00 Test Item Value Reference Range Interpretation Comments MPV (test code = MPV) 9.8 7.4-10.4 [facility] AND [id number] 17:33:00 Test Item Value Reference Range Interpretation Comments UA Urobilinogen (test code = UA <=1.0 mg/dL 0.1-1.0 Urobilinogen) [facility] AND [id number] 17:33:00 Test Item Value Reference Range Interpretation Comments UA Leuk Est (test Negative (06/19/15 11:33 code = UA Leuk Est) AM) [facility] AND [id number] 17:33:00 Test Item Value Reference Range Interpretation Comments UA Bacteria (test code = UA Many /HPF Bacteria) [facility] AND [id number] 17:33:00 Test Item Value Reference Range Interpretation Comments UA WBC (test code = 81 See_Comment [Automa placido message] The UA WBC) system which ge nerated this result transmit placido reference range : <=5. The reference range was not used to interpr et this result as jazzy l/abnormal. [facility] AND [id number] 17:33:00 Test Item Value Reference Range Interpretation Comments UA Sq Epi (test code = UA Sq Epi) Few /LPF [facility] AND [id number] 17:33:00 Test Item Value Reference Range Interpretation Comments UA Nitrite (test code Negative (06/19/15 = UA Nitrite) 11:33 AM) [facility] AND [id number] 17:33:00 Test Item Value Reference Range Interpretation Comments UA Mucus (test code = UA Mucus) Many /LPF [facility] AND [id number] 17:33:00 Test Item Value Reference Range Interpretation Comments UA Protein (test code = UA Negative mg/dL Protein) [facility] AND [id number] 17:33:00 Test Item Value Reference Range Interpretation Comments UA Glucose (test code = UA Glucose) 500 mg/dL [facility] AND [id number] 17:33:00 Test Item Value Reference Range Interpretation Comments UA pH (test code = UA pH) 5.0 5.0-8.0 [facility] AND [id number] 17:33:00 Test Item Value Reference Range Interpretation Comments UA Spec Grav (test code = UA Spec Grav) 1.035 [facility] AND [id number] 17:33:00 Test Item Value Reference Range Interpretation Comments UA Bili (test code = Negative *NA*(06/19/15 UA Bili) 11:33 AM) [facility] AND [id number] 17:33:00 Test Item Value Reference Range Interpretation Comments UA Ketones (test code = UA Negative mg/dL Ketones) [facility] AND [id number] 17:33:00 Test Item Value Reference Range Interpretation Comments UA Blood (test code = Negative (06/19/15 11:33 UA Blood) AM) [facility] AND [id number] 17:33:00 Test Item Value Reference Range Interpretation Comments UA Turbidity (test code Marked *ABN*(06/19/15 = UA Turbidity) 11:33 AM) [facility] AND [id number] 17:33:00 Test Item Value Reference Range Interpretation Comments UA Color (test code = Yellow *NA*(06/19/15 UA Color) 11:33 AM) [facility]MdyroatJXDLUPOTD9090-21-19 03:30:47 Test Item Value Reference Range Interpretation Comments U Amph Scr (test code Negative *NA*(01/12/2013 = U Amph Scr) 22:30:47) [facility] CenterEcbgjccNVCMZFZCD7488-67-04 03:30:47 Test Item Value Reference Range Interpretation Comments UDS Note (test code = See Note 3(01/12/2013 N UDS Note) 22:30:47) [facility] CenterZghpjbyVMGZEBKWY0700-45-83 03:30:47 Test Item Value Reference Range Interpretation Comments U Cocaine Scr (test Negative code = U Cocaine Scr) *NA*(01/12/2013 22:30:47) [facility] CenterYqeqboaVMITMEQPT7159-33-79 03:30:47 Test Item Value Reference Range Interpretation Comments U Cannab Scr (test Negative code = U Cannab Scr) *NA*(01/12/2013 22:30:47) [facility] CenterDjvtetnMNQFTGTZD2283-77-54 03:30:47 Test Item Value Reference Range Interpretation Comments U Opiate Scr (test Positive A code = U Opiate Scr) *ABN*(01/12/2013 22:30:47) [facility] CenterSwykpqkEWEQTNIUR5973-45-69 03:30:47 Test Item Value Reference Range Interpretation Comments U Phencyc Scr (test Negative code = U Phencyc Scr) *NA*(01/12/2013 22:30:47) [facility] CenterAmensmxZOCUMIZAE7773-34-85 03:30:47 Test Item Value Reference Range Interpretation Comments U Joie Scr (test code Negative *NA*(01/12/2013 = U Joie Scr) 22:30:47) [facility] CenterUydwsudVUBSLGTIX4323-36-35 03:30:47 Test Item Value Reference Range Interpretation Comments U Benzodia Scr (test Positive A code = U Benzodia Scr) *ABN*(01/12/2013 22:30:47) [facility] CenterZgbzgfgADRAOBVPL7552-97-83 03:30:47 Test Item Value Reference Range Interpretation Comments U Amph Scr (test code Negative *NA*(01/12/2013 = U Amph Scr) 22:30:47) [facility] CenterViyrbhwEBZFQFBIR2845-63-39 03:30:47 Test Item Value Reference Range Interpretation Comments UDS Note (test code = See Note 3(01/12/2013 N UDS Note) 22:30:47) [facility] CenterLrqyrwaNTSALMHFA2711-81-82 03:30:47 Test Item Value Reference Range Interpretation Comments U Cocaine Scr (test Negative code = U Cocaine Scr) *NA*(01/12/2013 22:30:47) [facility] CenterBkjseioAOJHGRAAK3932-29-15 03:30:47 Test Item Value Reference Range Interpretation Comments U Cannab Scr (test Negative code = U Cannab Scr) *NA*(01/12/2013 22:30:47) [facility] CenterAemubavCPGMBYNAB5417-27-95 03:30:47 Test Item Value Reference Range Interpretation Comments U Opiate Scr (test Positive A code = U Opiate Scr) *ABN*(01/12/2013 22:30:47) [facility] CenterGbzanykERSFRWSUS5376-54-72 03:30:47 Test Item Value Reference Range Interpretation Comments U Phencyc Scr (test Negative code = U Phencyc Scr) *NA*(01/12/2013 22:30:47) [facility] CenterDzvdujhAYTTBKPVP4046-82-10 03:30:47 Test Item Value Reference Range Interpretation Comments U Joie Scr (test code Negative *NA*(01/12/2013 = U Joie Scr) 22:30:47) [facility] CenterUnjiefzZGNADIJSD5011-13-68 03:30:47 Test Item Value Reference Range Interpretation Comments U Benzodia Scr (test Positive A code = U Benzodia Scr) *ABN*(01/12/2013 22:30:47) [facility] CenterDmatxxqOWNCMMWOZ0252-73-77 03:30:47 Test Item Value Reference Range Interpretation Comments U Amph Scr (test code Negative *NA*(01/12/2013 = U Amph Scr) 22:30:47) [facility] CenterOlllnmsCEOKUHKQH1171-28-76 03:30:47 Test Item Value Reference Range Interpretation Comments UDS Note (test code = See Note 3(01/12/2013 N UDS Note) 22:30:47) [facility] CenterXkskxxuSGUNAUBMC4169-78-81 03:30:47 Test Item Value Reference Range Interpretation Comments U Cocaine Scr (test Negative code = U Cocaine Scr) *NA*(01/12/2013 22:30:47) [facility] CenterJeynbodJXEHOSGTJ2502-84-45 03:30:47 Test Item Value Reference Range Interpretation Comments U Cannab Scr (test Negative code = U Cannab Scr) *NA*(01/12/2013 22:30:47) [facility] CenterXtpxtckEPQUPCHMK8789-14-10 03:30:47 Test Item Value Reference Range Interpretation Comments U Opiate Scr (test Positive A code = U Opiate Scr) *ABN*(01/12/2013 22:30:47) [facility] CenterIjzpqlbUSDWHDLOP8287-57-31 03:30:47 Test Item Value Reference Range Interpretation Comments U Phencyc Scr (test Negative code = U Phencyc Scr) *NA*(01/12/2013 22:30:47) [facility] CenterTqinlyiPVZYTHNQJ6617-88-13 03:30:47 Test Item Value Reference Range Interpretation Comments U Joie Scr (test code Negative *NA*(01/12/2013 = U Joie Scr) 22:30:47) [facility] CenterTcuueadEDXWTHCDS8254-68-81 03:30:47 Test Item Value Reference Range Interpretation Comments U Benzodia Scr (test Positive A code = U Benzodia Scr) *ABN*(01/12/2013 22:30:47) [facility] CenterCmmoxbtASOJROFDN0066-08-00 03:30:47 Test Item Value Reference Range Interpretation Comments U Amph Scr (test code Negative *NA*(01/12/2013 = U Amph Scr) 22:30:47) [facility] CenterEnjzmskJVYELDWDU2478-68-28 03:30:47 Test Item Value Reference Range Interpretation Comments UDS Note (test code = See Note 3(01/12/2013 N UDS Note) 22:30:47) [facility] CenterRgtxolzJQJHZORRJ4697-48-65 03:30:47 Test Item Value Reference Range Interpretation Comments U Cocaine Scr (test Negative code = U Cocaine Scr) *NA*(01/12/2013 22:30:47) [facility] CenterMphiwrgLBNIZHWJG7818-10-12 03:30:47 Test Item Value Reference Range Interpretation Comments U Cannab Scr (test Negative code = U Cannab Scr) *NA*(01/12/2013 22:30:47) [facility] CenterSgeitxcOMNWIIQTK2096-14-86 03:30:47 Test Item Value Reference Range Interpretation Comments U Opiate Scr (test Positive A code = U Opiate Scr) *ABN*(01/12/2013 22:30:47) [facility] CenterMqizrxjEDVLXZNGR0025-50-07 03:30:47 Test Item Value Reference Range Interpretation Comments U Phencyc Scr (test Negative code = U Phencyc Scr) *NA*(01/12/2013 22:30:47) [facility] CenterCepdhisZAUUZMNXF5913-56-67 03:30:47 Test Item Value Reference Range Interpretation Comments U Joie Scr (test code Negative *NA*(01/12/2013 = U Joie Scr) 22:30:47) [facility] CenterPjffmioCWTNXHJGD8255-81-84 03:30:47 Test Item Value Reference Range Interpretation Comments U Benzodia Scr (test Positive A code = U Benzodia Scr) *ABN*(01/12/2013 22:30:47) [facility] CenterDioquakCYNRNZYGL6553-03-40 03:30:47 Test Item Value Reference Range Interpretation Comments U Amph Scr (test code Negative *NA*(01/12/2013 = U Amph Scr) 22:30:47) [facility] CenterDemoineTDAXPUXJH7613-95-14 03:30:47 Test Item Value Reference Range Interpretation Comments UDS Note (test code = See Note 3(01/12/2013 N UDS Note) 22:30:47) [facility] CenterLuijzawREXJYFUGA7805-09-93 03:30:47 Test Item Value Reference Range Interpretation Comments U Cocaine Scr (test Negative code = U Cocaine Scr) *NA*(01/12/2013 22:30:47) [facility] CenterEqfpmjiQEPWPRKUZ1682-33-38 03:30:47 Test Item Value Reference Range Interpretation Comments U Cannab Scr (test Negative code = U Cannab Scr) *NA*(01/12/2013 22:30:47) [facility] CenterEuakabgMICOZPQEE5723-13-35 03:30:47 Test Item Value Reference Range Interpretation Comments U Opiate Scr (test Positive A code = U Opiate Scr) *ABN*(01/12/2013 22:30:47) [facility] CenterSnkxxqzMMAOSDFUL7199-49-78 03:30:47 Test Item Value Reference Range Interpretation Comments U Phencyc Scr (test Negative code = U Phencyc Scr) *NA*(01/12/2013 22:30:47) [facility] CenterFfkzolzOKPPJZXST4439-62-35 03:30:47 Test Item Value Reference Range Interpretation Comments U Joie Scr (test code Negative *NA*(01/12/2013 = U Joie Scr) 22:30:47) [facility] CenterLgrbklcCRJWZMNVZ6431-31-69 03:30:47 Test Item Value Reference Range Interpretation Comments U Benzodia Scr (test Positive A code = U Benzodia Scr) *ABN*(01/12/2013 22:30:47) [facility] CenterRckrzqmPPZPZLHNH3991-46-03 03:30:47 Test Item Value Reference Range Interpretation Comments U Amph Scr (test code Negative *NA*(01/12/2013 = U Amph Scr) 22:30:47) [facility] CenterQlxzbxlNDODXUXPW3649-86-28 03:30:47 Test Item Value Reference Range Interpretation Comments UDS Note (test code = See Note 3(01/12/2013 N UDS Note) 22:30:47) [facility] CenterGlydjanRJEVPUXWS2573-73-85 03:30:47 Test Item Value Reference Range Interpretation Comments U Cocaine Scr (test Negative code = U Cocaine Scr) *NA*(01/12/2013 22:30:47) [facility] CenterXxaflkoZOMZAJXZC5602-99-56 03:30:47 Test Item Value Reference Range Interpretation Comments U Cannab Scr (test Negative code = U Cannab Scr) *NA*(01/12/2013 22:30:47) [facility] CenterEqhulysHOGNHIJVH0438-82-81 03:30:47 Test Item Value Reference Range Interpretation Comments U Opiate Scr (test Positive A code = U Opiate Scr) *ABN*(01/12/2013 22:30:47) [facility] CenterRhjycdwLREMDHWWB4492-24-63 03:30:47 Test Item Value Reference Range Interpretation Comments U Phencyc Scr (test Negative code = U Phencyc Scr) *NA*(01/12/2013 22:30:47) [facility] CenterRonyqrhXIUZBBJWF5672-67-33 03:30:47 Test Item Value Reference Range Interpretation Comments U Joie Scr (test code Negative *NA*(01/12/2013 = U Joie Scr) 22:30:47) [facility] CenterTzdmwodPPRFFOJFD2944-68-37 03:30:47 Test Item Value Reference Range Interpretation Comments U Benzodia Scr (test Positive A code = U Benzodia Scr) *ABN*(01/12/2013 22:30:47) [facility] CenterQgakqgiNKTFAPTRT9296-01-55 03:30:47 Test Item Value Reference Range Interpretation Comments U Amph Scr (test code Negative *NA*(01/12/2013 = U Amph Scr) 22:30:47) [facility] CenterPmpqwlyIRWQUYARL6786-05-75 03:30:47 Test Item Value Reference Range Interpretation Comments UDS Note (test code = See Note 3(01/12/2013 N UDS Note) 22:30:47) [facility] CenterWfijptuTSUYBQSWU1533-61-61 03:30:47 Test Item Value Reference Range Interpretation Comments U Cocaine Scr (test Negative code = U Cocaine Scr) *NA*(01/12/2013 22:30:47) [facility] CenterIwaxshvREWCWPVZL0996-06-53 03:30:47 Test Item Value Reference Range Interpretation Comments U Cannab Scr (test Negative code = U Cannab Scr) *NA*(01/12/2013 22:30:47) [facility] CenterUweshhcWXKPTDSFQ8822-63-15 03:30:47 Test Item Value Reference Range Interpretation Comments U Opiate Scr (test Positive A code = U Opiate Scr) *ABN*(01/12/2013 22:30:47) [facility] CenterTarklwqJHNAEPUJW4983-93-13 03:30:47 Test Item Value Reference Range Interpretation Comments U Phencyc Scr (test Negative code = U Phencyc Scr) *NA*(01/12/2013 22:30:47) [facility] CenterAmrhxloGDDIIYZXM2708-03-96 03:30:47 Test Item Value Reference Range Interpretation Comments U Joie Scr (test code Negative *NA*(01/12/2013 = U Joie Scr) 22:30:47) [facility] CenterBrodznqGQKZYDGQX8533-34-19 03:30:47 Test Item Value Reference Range Interpretation Comments U Benzodia Scr (test Positive A code = U Benzodia Scr) *ABN*(01/12/2013 22:30:47) [facility] CenterRgiyzcxUIFBEDXOD7256-69-74 03:30:47 Test Item Value Reference Range Interpretation Comments U Amph Scr (test code Negative *NA*(01/12/2013 = U Amph Scr) 22:30:47) [facility] CenterJhivfyoGFZWRKURB6210-69-28 03:30:47 Test Item Value Reference Range Interpretation Comments UDS Note (test code = See Note 3(01/12/2013 N UDS Note) 22:30:47) [facility] CenterErfmhprEBSQBIQAP9336-16-45 03:30:47 Test Item Value Reference Range Interpretation Comments U Cocaine Scr (test Negative code = U Cocaine Scr) *NA*(01/12/2013 22:30:47) [facility] CenterPmsufbyLNSPEKLTV0190-53-34 03:30:47 Test Item Value Reference Range Interpretation Comments U Cannab Scr (test Negative code = U Cannab Scr) *NA*(01/12/2013 22:30:47) [facility] CenterAgvrcedOLFGRRZIA1427-38-47 03:30:47 Test Item Value Reference Range Interpretation Comments U Opiate Scr (test Positive A code = U Opiate Scr) *ABN*(01/12/2013 22:30:47) [facility] CenterWgtknfdNHUYOBGIT3859-04-75 03:30:47 Test Item Value Reference Range Interpretation Comments U Phencyc Scr (test Negative code = U Phencyc Scr) *NA*(01/12/2013 22:30:47) [facility] CenterQrfxzcvIAEUFHGEQ5434-40-53 03:30:47 Test Item Value Reference Range Interpretation Comments U Joie Scr (test code Negative *NA*(01/12/2013 = U Joie Scr) 22:30:47) [facility] CenterAlxvuwbMZKSBMGQI3954-77-09 03:30:47 Test Item Value Reference Range Interpretation Comments U Benzodia Scr (test Positive A code = U Benzodia Scr) *ABN*(01/12/2013 22:30:47) [facility]lle[facility]lXIQHJAFPLG3844-49-50 16:34:00 Test Item Value Reference Range Interpretation Comments CDC-HIV 1/2 Ab (test Negative *NA*(01/12/2013 code = CDC-HIV 1/2 11:34:00) Ab) [facility]QnthhdnVJGPTNRPBC7476-93-24 16:34:00 Test Item Value Reference Range Interpretation Comments CDC-HIV 1/2 Ab (test Negative *NA*(01/12/2013 code = CDC-HIV 1/2 11:34:00) Ab) [facility] NorthwestBrntfvmXNKLPFDPLJ3822-85-92 16:34:00 Test Item Value Reference Range Interpretation Comments CDC-HIV 1/2 Ab (test Negative *NA*(01/12/2013 code = CDC-HIV 1/2 11:34:00) Ab) [facility] NorthwestDgqfhioBEZOJMHHJH5076-35-17 16:34:00 Test Item Value Reference Range Interpretation Comments CDC-HIV 1/2 Ab (test Negative *NA*(01/12/2013 code = CDC-HIV 1/2 11:34:00) Ab) [facility]SgjtnaoWAUCSRUAHA7549-72-00 16:34:00 Test Item Value Reference Range Interpretation Comments CDC-HIV 1/2 Ab (test Negative *NA*(01/12/2013 code = CDC-HIV 1/2 11:34:00) Ab) [facility] NorthwestXafgvdfTGKRULESEU8822-17-08 16:34:00 Test Item Value Reference Range Interpretation Comments CDC-HIV 1/2 Ab (test Negative *NA*(01/12/2013 code = CDC-HIV 1/2 11:34:00) Ab) [facility] NorthwestQkawauhFMOGGTTFZW8025-92-11 16:34:00 Test Item Value Reference Range Interpretation Comments CDC-HIV 1/2 Ab (test Negative *NA*(01/12/2013 code = CDC-HIV 1/2 11:34:00) Ab) [facility] NorthwestZtsxpcfZZNEZGFVEF0316-22-22 16:34:00 Test Item Value Reference Range Interpretation Comments CDC-HIV 1/2 Ab (test Negative *NA*(01/12/2013 code = CDC-HIV 1/2 11:34:00) Ab) [facility] CenterUacpxvdYRBEUDJPK3341-42-20 15:57:00 Test Item Value Reference Range Interpretation Comments Creatinine Lvl (test code = Creatinine 0.7 0.5-1.4 N Lvl) [facility] CenterQhnyylvXPMLEMLUM0643-84-65 15:57:00 Test Item Value Reference Range Interpretation Comments BUN (test code = BUN) 11 7-22 N [facility] CenterKfjipejKSGBCBTLN7445-41-11 15:57:00 Test Item Value Reference Range Interpretation Comments Sodium Lvl (test code = Sodium Lvl) 137 135-145 N [facility] CenterErcjmirTWIAGWSJP5063-79-34 15:57:00 Test Item Value Reference Range Interpretation Comments AGAP (test code = AGAP) 19.6 10.0-20.0 N [facility] CenterCfjgltqNVQKEOKJE4725-32-73 15:57:00 Test Item Value Reference Range Interpretation Comments Calcium Lvl (test code = Calcium Lvl) 8.8 8.5-10.5 N [facility] CenterDvhpyhpEMNBUGGAA6136-63-66 15:57:00 Test Item Value Reference Range Interpretation Comments Chloride Lvl (test code = Chloride Lvl) 100 95-109 N [facility] CenterGtbbfjrPGCUGXCWQ0135-30-26 15:57:00 Test Item Value Reference Range Interpretation Comments Potassium Lvl (test code = Potassium 4.6 3.5-5.1 N Lvl) [facility] CenterAsmkwbtBOTAMFLCM1832-07-08 15:57:00 Test Item Value Reference Range Interpretation Comments CO2 (test code = CO2) 22 24-32 L [facility] CenterMhliogmNWFAUHBNW3456-16-11 15:57:00 Test Item Value Reference Range Interpretation Comments eGFR (test code = eGFR) 101 [facility] CenterBqtsxleTSNVNEYUK1775-53-72 15:57:00 Test Item Value Reference Range Interpretation Comments Glucose Lvl (test code = Glucose Lvl) 239 70-99 H [facility] CenterWxusngwCJKRFXUSI5298-07-33 15:57:00 Test Item Value Reference Range Interpretation Comments Creatinine Lvl (test code = Creatinine 0.7 0.5-1.4 N Lvl) [facility] CenterKdokxncUXHGHMQSC6338-06-26 15:57:00 Test Item Value Reference Range Interpretation Comments BUN (test code = BUN) 11 7-22 N [facility] CenterOwipexiWYTOCEOPT3599-69-60 15:57:00 Test Item Value Reference Range Interpretation Comments Sodium Lvl (test code = Sodium Lvl) 137 135-145 N [facility] CenterNuksalwCPIOUUVKZ3198-70-01 15:57:00 Test Item Value Reference Range Interpretation Comments AGAP (test code = AGAP) 19.6 10.0-20.0 N [facility] CenterMrkezonMGXIJNRRY1073-14-60 15:57:00 Test Item Value Reference Range Interpretation Comments Calcium Lvl (test code = Calcium Lvl) 8.8 8.5-10.5 N [facility] CenterVbgsshbEHZBSDISJ0137-71-89 15:57:00 Test Item Value Reference Range Interpretation Comments Chloride Lvl (test code = Chloride Lvl) 100 95-109 N [facility] CenterGszkccoEASKVFCTM7180-42-80 15:57:00 Test Item Value Reference Range Interpretation Comments Potassium Lvl (test code = Potassium 4.6 3.5-5.1 N Lvl) [facility] CenterKmkgqvbGZFJXHDXC6642-65-51 15:57:00 Test Item Value Reference Range Interpretation Comments CO2 (test code = CO2) 22 24-32 L [facility] CenterFbngbdtKNZVUTTAA8477-70-83 15:57:00 Test Item Value Reference Range Interpretation Comments eGFR (test code = eGFR) 101 [facility] CenterReeemamQEWYKKWLU2277-54-71 15:57:00 Test Item Value Reference Range Interpretation Comments Glucose Lvl (test code = Glucose Lvl) 239 70-99 H [facility] CenterStxawgrICXBAYMQE6361-15-42 15:57:00 Test Item Value Reference Range Interpretation Comments Creatinine Lvl (test code = Creatinine 0.7 0.5-1.4 N Lvl) [facility] CenterQeynucwIOYOBSKLV0896-21-41 15:57:00 Test Item Value Reference Range Interpretation Comments BUN (test code = BUN) 11 7-22 N [facility] CenterBdbebnlHTGDULCWR7955-23-30 15:57:00 Test Item Value Reference Range Interpretation Comments Sodium Lvl (test code = Sodium Lvl) 137 135-145 N [facility] CenterYheevndISUWLWUFE6692-52-36 15:57:00 Test Item Value Reference Range Interpretation Comments AGAP (test code = AGAP) 19.6 10.0-20.0 N [facility] CenterFinknltPGFPORSQI0290-63-98 15:57:00 Test Item Value Reference Range Interpretation Comments Calcium Lvl (test code = Calcium Lvl) 8.8 8.5-10.5 N [facility] CenterCwxbitfHCFOISYGR1871-56-81 15:57:00 Test Item Value Reference Range Interpretation Comments Chloride Lvl (test code = Chloride Lvl) 100 95-109 N [facility] CenterPgcvdtmRHKUCOGYV0945-71-24 15:57:00 Test Item Value Reference Range Interpretation Comments Potassium Lvl (test code = Potassium 4.6 3.5-5.1 N Lvl) [facility] CenterCaqdrwfEVRVDPNRN7987-06-80 15:57:00 Test Item Value Reference Range Interpretation Comments CO2 (test code = CO2) 22 24-32 L [facility] CenterIqqrczqJCIZHQGZA4344-86-97 15:57:00 Test Item Value Reference Range Interpretation Comments eGFR (test code = eGFR) 101 [facility] CenterUmpzermGHMDQXMQK0461-54-56 15:57:00 Test Item Value Reference Range Interpretation Comments Glucose Lvl (test code = Glucose Lvl) 239 70-99 H [facility] CenterThnyadbBWHLPWHGP9966-38-54 15:57:00 Test Item Value Reference Range Interpretation Comments Creatinine Lvl (test code = Creatinine 0.7 0.5-1.4 N Lvl) [facility] CenterQfepcalULPSCQRSD6573-85-78 15:57:00 Test Item Value Reference Range Interpretation Comments BUN (test code = BUN) 11 7-22 N [facility] CenterKxxmhdzXLZKVKGYM6054-64-00 15:57:00 Test Item Value Reference Range Interpretation Comments Sodium Lvl (test code = Sodium Lvl) 137 135-145 N [facility] CenterNunhsqdERJDUWFQA9512-98-46 15:57:00 Test Item Value Reference Range Interpretation Comments AGAP (test code = AGAP) 19.6 10.0-20.0 N [facility] CenterLpnzsffVXCUDELSO6065-11-59 15:57:00 Test Item Value Reference Range Interpretation Comments Calcium Lvl (test code = Calcium Lvl) 8.8 8.5-10.5 N [facility] CenterGrsqzryCNYVNXLQM4483-44-42 15:57:00 Test Item Value Reference Range Interpretation Comments Chloride Lvl (test code = Chloride Lvl) 100 95-109 N [facility] CenterRpkrlktZTZMOJSVS7541-40-66 15:57:00 Test Item Value Reference Range Interpretation Comments Potassium Lvl (test code = Potassium 4.6 3.5-5.1 N Lvl) [facility] CenterBwqxkdrRVNHLOWZA0989-42-96 15:57:00 Test Item Value Reference Range Interpretation Comments CO2 (test code = CO2) 22 24-32 L [facility] CenterIkdwdyuJRXCDTRGZ3515-92-11 15:57:00 Test Item Value Reference Range Interpretation Comments eGFR (test code = eGFR) 101 [facility] CenterWxmftaeQEJMQDXQN4123-93-79 15:57:00 Test Item Value Reference Range Interpretation Comments Glucose Lvl (test code = Glucose Lvl) 239 70-99 H [facility] CenterDbmehkpFCOQHCOPA0042-44-57 15:57:00 Test Item Value Reference Range Interpretation Comments Creatinine Lvl (test code = Creatinine 0.7 0.5-1.4 N Lvl) [facility] CenterKsdtazqRDSDNDNBG0288-71-44 15:57:00 Test Item Value Reference Range Interpretation Comments BUN (test code = BUN) 11 7-22 N [facility] CenterZvwenwqDNFTRMCRM1477-10-13 15:57:00 Test Item Value Reference Range Interpretation Comments Sodium Lvl (test code = Sodium Lvl) 137 135-145 N [facility] CenterFqniafrHONFXDBPR3685-14-41 15:57:00 Test Item Value Reference Range Interpretation Comments AGAP (test code = AGAP) 19.6 10.0-20.0 N [facility] CenterAemttpqOFQRQLNEE6688-70-84 15:57:00 Test Item Value Reference Range Interpretation Comments Calcium Lvl (test code = Calcium Lvl) 8.8 8.5-10.5 N [facility] CenterGwhyzocUNMRJAWJH7121-67-29 15:57:00 Test Item Value Reference Range Interpretation Comments Chloride Lvl (test code = Chloride Lvl) 100 95-109 N [facility] CenterGyrxkwcTABGSHYJR2693-56-54 15:57:00 Test Item Value Reference Range Interpretation Comments Potassium Lvl (test code = Potassium 4.6 3.5-5.1 N Lvl) [facility] CenterDevpfjfXWVYQJMRT0953-66-18 15:57:00 Test Item Value Reference Range Interpretation Comments CO2 (test code = CO2) 22 24-32 L [facility] CenterWriukyoVXVDAEWOM8776-40-54 15:57:00 Test Item Value Reference Range Interpretation Comments eGFR (test code = eGFR) 101 [facility] CenterWnvxxweMBKNYCJTA0123-96-32 15:57:00 Test Item Value Reference Range Interpretation Comments Glucose Lvl (test code = Glucose Lvl) 239 70-99 H [facility] CenterPiyydawPHNTOHJSE6715-48-48 15:57:00 Test Item Value Reference Range Interpretation Comments Creatinine Lvl (test code = Creatinine 0.7 0.5-1.4 N Lvl) [facility] CenterWinmsxtIDWWNRAKC7237-96-11 15:57:00 Test Item Value Reference Range Interpretation Comments BUN (test code = BUN) 11 7-22 N [facility] CenterSspdqmlKTSSMSJZQ9301-23-36 15:57:00 Test Item Value Reference Range Interpretation Comments Sodium Lvl (test code = Sodium Lvl) 137 135-145 N [facility] CenterOcgzbylKUDEXPEWE7395-26-69 15:57:00 Test Item Value Reference Range Interpretation Comments AGAP (test code = AGAP) 19.6 10.0-20.0 N [facility] CenterUdrjtgbDMGWALCMM2220-57-76 15:57:00 Test Item Value Reference Range Interpretation Comments Calcium Lvl (test code = Calcium Lvl) 8.8 8.5-10.5 N [facility] CenterTpiazjqBMDRWCMIY6619-66-59 15:57:00 Test Item Value Reference Range Interpretation Comments Chloride Lvl (test code = Chloride Lvl) 100 95-109 N [facility] CenterFmvwikjEYRMJDBVN3152-27-38 15:57:00 Test Item Value Reference Range Interpretation Comments Potassium Lvl (test code = Potassium 4.6 3.5-5.1 N Lvl) [facility] CenterBlisfexAHKSTPHSY8311-53-95 15:57:00 Test Item Value Reference Range Interpretation Comments CO2 (test code = CO2) 22 24-32 L [facility] CenterLkinoluQIMBHOLXZ9654-00-64 15:57:00 Test Item Value Reference Range Interpretation Comments eGFR (test code = eGFR) 101 [facility] CenterGpyfwhoNAYPBGPJW5851-46-66 15:57:00 Test Item Value Reference Range Interpretation Comments Glucose Lvl (test code = Glucose Lvl) 239 70-99 H [facility] CenterFutlcgmNXSWAOHNE0096-88-12 15:57:00 Test Item Value Reference Range Interpretation Comments Creatinine Lvl (test code = Creatinine 0.7 0.5-1.4 N Lvl) [facility] CenterJzgcecgQAKCYWHHP4499-53-92 15:57:00 Test Item Value Reference Range Interpretation Comments BUN (test code = BUN) 11 7-22 N [facility] CenterQiutqnlGNPPQENMV5814-86-57 15:57:00 Test Item Value Reference Range Interpretation Comments Sodium Lvl (test code = Sodium Lvl) 137 135-145 N [facility] CenterXjwhmwaDKIJZYXOI4525-45-23 15:57:00 Test Item Value Reference Range Interpretation Comments AGAP (test code = AGAP) 19.6 10.0-20.0 N [facility] CenterIanmjekXIZJQSBDR5935-09-81 15:57:00 Test Item Value Reference Range Interpretation Comments Calcium Lvl (test code = Calcium Lvl) 8.8 8.5-10.5 N [facility] CenterHihwnfbAZZYGFDOQ2158-08-88 15:57:00 Test Item Value Reference Range Interpretation Comments Chloride Lvl (test code = Chloride Lvl) 100 95-109 N [facility] CenterDrengieFGZLTNASM1479-83-47 15:57:00 Test Item Value Reference Range Interpretation Comments Potassium Lvl (test code = Potassium 4.6 3.5-5.1 N Lvl) [facility] CenterSqpxdspXHLMEACZV8998-07-21 15:57:00 Test Item Value Reference Range Interpretation Comments CO2 (test code = CO2) 22 24-32 L [facility] CenterDdrcwdqODUBABYCW0815-69-84 15:57:00 Test Item Value Reference Range Interpretation Comments eGFR (test code = eGFR) 101 [facility] CenterRujygaxIYBHHADWY8907-18-48 15:57:00 Test Item Value Reference Range Interpretation Comments Glucose Lvl (test code = Glucose Lvl) 239 70-99 H [facility] CenterMjpllgoQUQBLBAVT3941-55-38 15:57:00 Test Item Value Reference Range Interpretation Comments Creatinine Lvl (test code = Creatinine 0.7 0.5-1.4 N Lvl) [facility] CenterEhzlqyiTRYLIULGS2134-90-98 15:57:00 Test Item Value Reference Range Interpretation Comments BUN (test code = BUN) 11 7-22 N [facility] CenterRumuvguUPXWXKOFH1043-54-15 15:57:00 Test Item Value Reference Range Interpretation Comments Sodium Lvl (test code = Sodium Lvl) 137 135-145 N [facility] CenterMmszjtkOCDVSYKJO0297-69-06 15:57:00 Test Item Value Reference Range Interpretation Comments AGAP (test code = AGAP) 19.6 10.0-20.0 N [facility] CenterQzwhmwmEQVEGEUKI5466-64-40 15:57:00 Test Item Value Reference Range Interpretation Comments Calcium Lvl (test code = Calcium Lvl) 8.8 8.5-10.5 N [facility] CenterMhkfuadFLMMUZHSA5862-39-13 15:57:00 Test Item Value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 enhan cement. Lymph Nodes: No lymphadenopathy or mass. SOLID ORGANS: Liver: Mild hepatomegaly dulce suring 20.5 cm maximum craniocaudal dimension. An elongated somewhat tubular appearing area of low-attenuation is seen along the medial margin of the right hepatic lobe measu ring 8.4 cm maximum length a nd 10 mm maximum diameter. The exact etiology is uncertain, but location along the surface of the liver suggesting it is not a bile duct. Gallbladder: Postoperative change of cholecystec sienna. Biliary Tree: Mildly promine nt intrahepatic and extrahepatic bile ducts likely physiological in nature status post cholecystectomy. Kidneys: Normal size and morphology with out discrete lesion or hydronephrosis. Adrenal Glands: A predominan tly lipomatous lesion measuring 3.3 cm is seen within the right adrenal gland either representing a lipoma or myelolipoma. Normal left adrenal gland. Pancreas: Normal size and morphology without dis crete lesion. Spleen: Normal size and morphology without discr ete lesion. VISUALIZED LOWER THORAX: Lung Bases: Clear lung bases. Heart: Normal size heart. SOFT TISSUES: No suspicious soft tissue lesion o r abnormality. OSSEOUS STRUCTURES: Moderate old compression fractures are seen at L2 and T12. Mild spinal degenerative change. CT PELVIS WITH CONTRAST: URINARY BLADDER: Under distended appropriately t hick walled. REPRODUCTIVE ORGANS: Absent uterus. The ovaries are not identified. LYMPH NODES: No lymphadenopathy or mass. FREE FLUID: No free pelvic fluid. SOFT TISSUES: No suspicious soft tissue lesion o r abnormality. OSSEOUS STRUCTURES: No fract ure, dislocation, or suspicious focal osseous lesion. IMPRESSION: 1. Nonspecific nonobstructed bowel gas pattern without a focal inflammatory processes. The appendix is not able to be identified, but no pericecal inflammation is appreciated. Scattered subcentimeter ce ntral mesenteric lymph nodes are noted. Constellation of findings may represent a mild enteritis, but clinical correlation is required. 2. Mild hepatomegaly with in determinate somewhat tubular low-attenuation lesion along the right hepatic lobe near the liver surface. Etiology is likely not ductal in origin given location. Follow-up ult rasound or dynamic MR liver with and without con trast is recommended. 3. Cholecystectomy with mild central biliary prominence likely physiological in nature. 4. Approximately 3.3 cm lipoma or myelolipoma wi thin the right adrenal gland. SL: [facility] 2016-10-14 Study: Abdomen/Pelvis w IV contrast CT 10/14/2016 9:[address] [facility] 23:24:45-00:00 Patient Name: BETTY CHU MR: [id number] : 1960; Age: 55 years y/o Female Ordering Physician: Obi Bashir MD Clinical Indication: Acute r ight lower abdominal quadrant pain for one day. Rule out appendicitis. Comparison: None TECHNIQUE: Contiguous transa xial CT images were obtained from the diaphragm through the symphysis pubis.Sagittal and coronal reformatted images were prepared. IV CONTRAST: 100cc Omnipaque 300 GI CONTRAST: None. DLP: 1661.29 mGy-cm. CT ABDOMEN WITH CONTRAST: BOWEL GAS PATTERN: General: Nonspecific nonobst ructed bowel gas pattern. Scattered fluid-filled small bowel loops are seen greatest in the left upper abdominal quadrant. Appendix: The appendix is no t identified with certainty, but no pericecal inflammation is appreciated. Stomach: Under distended appropriately thick-wal led. PERITONEUM AND MESENTERY: Free Air: No evidence of pneumoperitoneum. Free Fluid: No evidence of s ignificant free fluid, loculated fluid, peripherally enhancing abscess, or hemorrhage. Mesenteric and peritoneal fat: Normal without fo maddy lesion or inflammation. Lymph Nodes: Multiple scatte red subcentimeter in maximum shortness axis retroperitoneal lymph nodes. RETROPERITONEUM: Abdominal Aorta: Normal froilan bonnie abdominal aorta without aneurysm or dissection. IVC: Normal appearance given the degree of enhan cement. Lymph Nodes: No lymphadenopathy or mass. SOLID ORGANS: Liver: Mild hepatomegaly dulce suring 20.5 cm maximum craniocaudal dimension. An elongated somewhat tubular appearing area of low-attenuation is seen along the medial margin of the right hepatic lobe measu ring 8.4 cm maximum length a nd 10 mm maximum diameter. The exact etiology is uncertain, but location along the surface of the liver suggesting it is not a bile duct. Gallbladder: Postoperative change of cholecystec sienna. Biliary Tree: Mildly promine nt intrahepatic and extrahepatic bile ducts likely physiological in nature status post cholecystectomy. Kidneys: Normal size and morphology with out discrete lesion or hydronephrosis. Adrenal Glands: A predominan tly lipomatous lesion measuring 3.3 cm is seen within the right adrenal gland either representing a lipoma or myelolipoma. Normal left adrenal gland. Pancreas: Normal size and morphology without dis crete lesion. Spleen: Normal size and morphology without discr ete lesion. VISUALIZED LOWER THORAX: Lung Bases: Clear lung bases. Heart: Normal size heart. SOFT TISSUES: No suspicious soft tissue lesion o r abnormality. OSSEOUS STRUCTURES: Moderate old compression fractures are seen at L2 and T12. Mild spinal degenerative change. CT PELVIS WITH CONTRAST: URINARY BLADDER: Under distended appropriately t hick walled. REPRODUCTIVE ORGANS: Absent uterus. The ovaries are not identified. LYMPH NODES: No lymphadenopathy or mass. FREE FLUID: No free pelvic fluid. SOFT TISSUES: No suspicious soft tissue lesion o r abnormality. OSSEOUS STRUCTURES: No fract ure, dislocation, or suspicious focal osseous lesion. IMPRESSION: 1. Nonspecific nonobstructed bowel gas pattern without a focal inflammatory processes. The appendix is not able to be identified, but no pericecal inflammation is appreciated. Scattered subcentimeter ce ntral mesenteric lymph nodes are noted. Constellation of findings may represent a mild enteritis, but clinical correlation is required. 2. Mild hepatomegaly with in determinate somewhat tubular low-attenuation lesion along the right hepatic lobe near the liver surface. Etiology is likely not ductal in origin given location. Follow-up ult rasound or dynamic MR liver with and without con trast is recommended. 3. Cholecystectomy with mild central biliary prominence likely physiological in nature. 4. Approximately 3.3 cm lipoma or myelolipoma wi thin the right adrenal gland. SL: [facility] 2016-01-29 MRI LUMBAR SPINE WITHOUT CONTRAST [place] 08:48:25-00:00 INDICATION: Lumbar back pain with right lower extremity radiculopathy COMPARISON: CT abdomen/pelvis 06/24/2015, MRI vinicio mbar spine 11/14/2009 DISCUSSION: The usual five nonrib-bearin g lumbar-type vertebral bodies are presumed present. Alignment: Vertebral body alignment is within no rmal limits. Vertebral bodies: There are chronic anterior wedge compression fracture deformities of the T12 and L2 vertebral bodies. There is approximately 70% loss of height of T12 and 60% loss of height of L2. The re is no significant retropu lsion. The vertebral bodies are otherwise normal in height and signal. There are no acute compression fractures. Distal spinal cord: Normal i n signal and morphology. The tip of the conus is at the L1-L2 level. Paraspinal soft tissues: No signal abnormalities are visualized. Disc spaces, spinal canal and foramina: T12-L1: The disc is normal in height and signal. There is no significant arthrosis. The spinal canal and foramina are patent. L1-L2 and L2-L3: There is loss of dorsal disc height and disc bulge, without spinal canal or foraminal stenosis. There is no significant facet arthrosis. L3-L4 through L5-S1: The disks are normal in heig ht and signal. There is no significant arthrosis. The spinal canal and foramina are patent. IMPRESSION: 1. Chronic compression defor mities of the T12 and L1 vertebral bodies. No acute compression fractures are identified. 2. Mild lumbar spondylosis, without significant spinal canal or foraminal stenosis. SL:2016-01-29 MRI [facility]BAR SPINE [facility]AST [facility] [place] 08:48:25-00:00 INDICATION: Lumbar back pain with right lower extremity radiculopathy COMPARISON: CT abdomen/pelvis 06/24/2015, MRI vinicio mbar spine 11/14/2009 DISCUSSION: The usual five nonrib-bearin g lumbar-type vertebral bodies are presumed present. Alignment: Vertebral body alignment is within no rmal limits. Vertebral bodies: There are chronic anterior wedge compression fracture deformities of the T12 and L2 vertebral bodies. There is approximately 70% loss of height of T12 and 60% loss of height of L2. The re is no significant retropu lsion. The vertebral bodies are otherwise normal in height and signal. There are no acute compression fractures. Distal spinal cord: Normal i n signal and morphology. The tip of the conus is at the L1-L2 level. Paraspinal soft tissues: No signal abnormalities are visualized. Disc spaces, spinal canal and foramina: T12-L1: The disc is normal in height and signal. There is no significant arthrosis. The spinal canal and foramina are patent. L1-L2 and L2-L3: There is loss of dorsal disc height and disc bulge, without spinal canal or foraminal stenosis. There is no significant facet arthrosis. L3-L4 through L5-S1: The disks are normal in heig ht and signal. There is no significant arthrosis. The spinal canal and foramina are patent. IMPRESSION: 1. Chronic compression defor mities of the T12 and L1 vertebral bodies. No acute compression fractures are identified. 2. Mild lumbar spondylosis, without significant spinal canal or foraminal stenosis. SL:2015-06-24 CT SCAN OF THE ABDOMEN AND PELVIS WITH CONTRAST. [facility] 14:56:14-00:00 HX: Abdominal pain, acute COMPARISON: 06/19/2015 Technique: Helical CT images from domes of the diaphragms to symphysis pubis following 100 cc Omnipaque nonionic iodinated intravenous contrast. Dose: DLP = 1367 mGy-cm. ABDOMEN: The heart is normal in size. The lung bases are clear. There are no pleural effusions. The liver , spleen, pancreas , and adrenals are normal in appearance. The patient has had previous cholecystectomy. The kidneys show good, symmetrical, excretion without hydronephrosis. The gastrointestinal structu res are unremarkable. No abdominal masses, adenopathy, ascites, or fluid collections are seen. The appendix is not seen and there is no evidence of inflammatory change in the right lower quadrant. ABDOMEN CONCLUSION: Negative CT scan of the abdomen. PELVIS: The bladder contour is smooth. the sigmoid colon shows thickening at its junction with the descending colon. There are changes of diverticulosis in the sigmoid region. A segment of thickened sig moid colon extends from the descending segment to the mid sigmoid region, a distance of approximately 10 cm. There is mild infiltration of the mesenteric fat to the left of the sigmoid colon, extending to the left lateral pelvic s idewall. No abscess formation is noted . There is no definite perforation. There is no evidence of free fluid in the pelvis. The visualized osseous structures are grossly normal. No hernia is identified. PELVIS CONCLUSION: 1. Findings of diverticuliti s involving the proximal sigmoid colon in a segment approximately 10 cm in length. 2. Differential consideratio ns include infiltrating neoplasm. Clinical correlation recommended. SL: 2015-06-24 CT SCAN OF THE ABDOMEN AND PELVIS WITH CONTRAST. [facility] 14:56:14-00:00 HX: Abdominal pain, acute COMPARISON: 06/19/2015 Technique: Helical CT images from domes of the diaphragms to symphysis pubis following 100 cc Omnipaque nonionic iodinated intravenous contrast. Dose: DLP = 1367 mGy-cm. ABDOMEN: The heart is normal in size. The lung bases are clear. There are no pleural effusions. The liver , spleen, pancreas , and adrenals are normal in appearance. The patient has had previous cholecystectomy. The kidneys show good, symmetrical, excretion without hydronephrosis. The gastrointestinal structu res are unremarkable. No abdominal masses, adenopathy, ascites, or fluid collections are seen. The appendix is not seen and there is no evidence of inflammatory change in the right lower quadrant. ABDOMEN CONCLUSION: Negative CT scan of the abdomen. PELVIS: The bladder contour is smooth. the sigmoid colon shows thickening at its junction with the descending colon. There are changes of diverticulosis in the sigmoid region. A segment of thickened sig moid colon extends from the descending segment to the mid sigmoid region, a distance of approximately 10 cm. There is mild infiltration of the mesenteric fat to the left of the sigmoid colon, extending to the left lateral pelvic s idewall. No abscess formation is noted . There is no definite perforation. There is no evidence of free fluid in the pelvis. The visualized osseous structures are grossly normal. No hernia is identified. PELVIS CONCLUSION: 1. Findings of diverticuliti s involving the proximal sigmoid colon in a segment approximately 10 cm in length. 2. Differential consideratio ns include infiltrating neoplasm. Clinical correlation recommended. SL: 2015-06-19 PROCEDURE: ED Abdomen/Pelvis IV contrast only CT [facility] 12:35:20-00:00 REASON FOR EXAM: rlq pain with nausea and vomiti ng, CLINICAL INFORMATION Abdominal pain, acute COMPARISON: None. ABDOMEN with IV contrast: Post cholecystectomy. No rodrigo e air. Normal aortic caliber with atheromatous calcification, no dissection. Slightly enlarged liver. Normal portal vein, spleen, pancreas, left adrenal gland. Right adrenal myolipoma measures 3 cm, HU -68. Normal renal corticomedullary differentiation, no hydronephrosis. PELVIS with IV contrast: No small bowel obstruction. Nonvisualization of the appendix. Perisigmoid inflammation, with sigmoid wall thickening involving a length of sigmoid colon measuring 18 cm. IMPRESSION: 1. Perisigmoid inflammation with wall thickening suspicious for diverticulitis, colitis. Correlation for an infiltrating mucosal process is recommended. 2. Nonvisualization of the a ppendix. If there is continued concern for appendiceal pathology, repeat exam with IV and oral contrast is recommended in 48 to 72 hours. 3. Hepatomegaly. 4. Right adrenal myolipoma. SL: 2015-06-19 PROCEDURE: ED Abdomen/Pelvis IV contrast only CT [facility] 12:35:20-00:00 REASON FOR EXAM: rlq pain with nausea and vomiti ng, CLINICAL INFORMATION Abdominal pain, acute COMPARISON: None. ABDOMEN with IV contrast: Post cholecystectomy. No rodrigo e air. Normal aortic caliber with atheromatous calcification, no dissection. Slightly enlarged liver. Normal portal vein, spleen, pancreas, left adrenal gland. Right adrenal myolipoma measures 3 cm, HU -68. Normal renal corticomedullary differentiation, no hydronephrosis. PELVIS with IV contrast: No small bowel obstruction. Nonvisualization of the appendix. Perisigmoid inflammation, with sigmoid wall thickening involving a length of sigmoid colon measuring 18 cm. IMPRESSION: 1. Perisigmoid inflammation with wall thickening suspicious for diverticulitis, colitis. Correlation for an infiltrating mucosal process is recommended. 2. Nonvisualization of the a ppendix. If there is continued concern for appendiceal pathology, repeat exam with IV and oral contrast is recommended in 48 to 72 hours. 3. Hepatomegaly. 4. Right adrenal myolipoma. SL: 2014-08-27 PROCEDURE: Left Ankle 3 views [facility] 01:19:34-00:00 REASON FOR EXAM: See Clinic Indication CLINICAL INDICATION: Pain and swelling COMPARISON: [None]. FINDINGS: Diffuse soft tissu e swelling about the ankle. No definite acute fracture or dislocation. Small posterior and plantar calcaneal enthesophytes are present. SL: 2014-08-27 PROCEDURE: Foot 3 views Bilateral [facility] 01:19:34-00:00 REASON FOR EXAM: See Clinic Indication CLINICAL INDICATION: Pain and swelling COMPARISON: None. FINDINGS: Right foot: Diffuse osteopen ia. Mild diffuse soft tissue swelling about the foot. No definite acute fracture or dislocation. Prominent posterior and plantar calcaneal enthesophytes are present. Left foot: Diffuse osteopeni a. Mild diffuse soft tissue swelling about the foot. No definite acute fracture or dislocation. Tiny posterior and plantar calcaneal enthesophytes are present. SL: 2014-08-27 PROCEDURE: Left Ankle 3 views [facility] 01:19:34-00:00 REASON FOR EXAM: See Clinic Indication CLINICAL INDICATION: Pain and swelling COMPARISON: [None]. FINDINGS: Diffuse soft tissu e swelling about the ankle. No definite acute fracture or dislocation. Small posterior and plantar calcaneal enthesophytes are present. SL: 2014-08-27 PROCEDURE: Foot 3 views Bilateral [facility] :19:34-00:00 REASON FOR EXAM: See Clinic Indication CLINICAL INDICATION: Pain and swelling COMPARISON: None. FINDINGS: Right foot: Diffuse osteopen ia. Mild diffuse soft tissue swelling about the foot. No definite acute fracture or dislocation. Prominent posterior and plantar calcaneal enthesophytes are present. Left foot: Diffuse osteopeni a. Mild diffuse soft tissue swelling about the foot. No definite acute fracture or dislocation. Tiny posterior and plantar calcaneal enthesophytes are present. SL: 2014-08-17 EXAM: XR THORACIC SPINE 2 [place]WS [place] 10:48:53-00:00 EXAM: XR LUMBAR SPINE 2 VIEWS DATE: 08/17/2014 at 1040 hours. INDICATION: 805.2 Closed Fra cture of Dorsal thoracic Vertebra without Mention of Spinal Cord Injury COMPARISON: CT of the thorac ic spine dated 01/12/2013. CT of the lumbar spine dated 06/16/2013. Chest CT dated 04/08/2014. TECHNIQUE: AP and lateral radiographs of the tho racic and lumbar spine DISCUSSION: Thoracic spine: T12 fracture as not significantly changed in height or alignment compared with the CT performed 04/08/2014. Vertebral body heights are preserved, with osteophyte formation most evident at T7-T9. Lumbar spine: There are 5 no nrib-bearing lumbar type vertebrae. A prior anterior compression deformity of the L2 vertebral body is unchanged in height and alignment, with no new compression deformities identified. Remaining verteb ral body heights are preserved. Mild anterior osteophytic changes are noted at L1-L4. Surgical clips overlie the r ight upper quadrant suggestive of prior cholecystectomy. IMPRESSION: Unchanged height and alignment of prior T12 and L2 fractures. No new findings. 2014-08-17 EXAM: XR THORACIC SPINE 2 VIEWS [facility] [place] 10:48:53-00:00 EXAM: XR LUMBAR SPINE 2 VIEWS DATE: 08/17/2014 at 1040 hours. INDICATION: 805.2 Closed Fra cture of Dorsal thoracic Vertebra without Mention of Spinal Cord Injury COMPARISON: CT of the thorac ic spine dated 01/12/2013. CT of the lumbar spine dated 06/16/2013. Chest CT dated 04/08/2014. TECHNIQUE: AP and lateral radiographs of the tho racic and lumbar spine DISCUSSION: Thoracic spine: T12 fracture as not significantly changed in height or alignment compared with the CT performed 04/08/2014. Vertebral body heights are preserved, with osteophyte formation most evident at T7-T9. Lumbar spine: There are 5 no nrib-bearing lumbar type vertebrae. A prior anterior compression deformity of the L2 vertebral body is unchanged in height and alignment, with no new compression deformities identified. Remaining verteb ral body heights are preserved. Mild anterior osteophytic changes are noted at L1-L4. Surgical clips overlie the r ight upper quadrant suggestive of prior cholecystectomy. IMPRESSION: Unchanged height and alignment of prior T12 and L2 fractures. No new findings. 2014-08-17 EXAM: XR THORACIC SPINE 2 VIEWS [facility] 10:48:53-00:00 EXAM: XR LUMBAR SPINE 2 VIEWS DATE: 08/17/2014 at 1040 hours. INDICATION: 805.2 Closed Fra cture of Dorsal thoracic Vertebra without Mention of Spinal Cord Injury COMPARISON: CT of the thorac ic spine dated 01/12/2013. CT of the lumbar spine dated 06/16/2013. Chest CT dated 04/08/2014. TECHNIQUE: AP and lateral radiographs of the tho racic and lumbar spine DISCUSSION: Thoracic spine: T12 fracture as not significantly changed in height or alignment compared with the CT performed 04/08/2014. Vertebral body heights are preserved, with osteophyte formation most evident at T7-T9. Lumbar spine: There are 5 no nrib-bearing lumbar type vertebrae. A prior anterior compression deformity of the L2 vertebral body is unchanged in height and alignment, with no new compression deformities identified. Remaining verteb ral body heights are preserved. Mild anterior osteophytic changes are noted at L1-L4. Surgical clips overlie the r ight upper quadrant suggestive of prior cholecystectomy. IMPRESSION: Unchanged height and alignment of prior T12 and L2 fractures. No new findings. 2014-08-17 EXAM: XR TH[facility]ACIC SPINE [facility] [place] 10:48:53-00:00 EXAM: XR LUMBAR SPINE 2 VIEWS DATE: 08/17/2014 at 1040 hours. INDICATION: 805.2 Closed Fra cture of Dorsal thoracic Vertebra without Mention of Spinal Cord Injury COMPARISON: CT of the thorac ic spine dated 01/12/2013. CT of the lumbar spine dated 06/16/2013. Chest CT dated 04/08/2014. TECHNIQUE: AP and lateral radiographs of the tho racic and lumbar spine DISCUSSION: Thoracic spine: T12 fracture as not significantly changed in height or alignment compared with the CT performed 04/08/2014. Vertebral body heights are preserved, with osteophyte formation most evident at T7-T9. Lumbar spine: There are 5 no nrib-bearing lumbar type vertebrae. A prior anterior compression deformity of the L2 vertebral body is unchanged in height and alignment, with no new compression deformities identified. Remaining verteb ral body heights are preserved. Mild anterior osteophytic changes are noted at L1-L4. Surgical clips overlie the r ight upper quadrant suggestive of prior cholecystectomy. IMPRESSION: Unchanged height and alignment of prior T12 and L2 fractures. No new findings. 2014-04-08 CT chest without contrast indication: Chest pain . [facility] 00:51:26-00:00 Axial images with sagittal reconstructions were obtained without contrast. No airspace consolidation or pneumothorax is evident. Minor scarring involves the lingula. No gross mediastinal vascula r mallet is evident. There is no hilar or mediastinal adenopathy. No pleural or pericardial effusion is seen. No definite fracture is iden tified. There is thoracic spondylosis and there is chronic compression deformity of T12. Images of the upper abdomen are remarkable for a somewhat distended stomach and cholecystectomy. IMPRESSION: 1. No acute abnormality. 2. Cholecystectomy. 3. Old T12 compression fracture. SL: 2014-04-08 CT chest without contrast indication: Chest pain . [facility] 00:51:26-00:00 Axial images with sagittal reconstructions were obtained without contrast. No airspace consolidation or pneumothorax is evident. Minor scarring involves the lingula. No gross mediastinal vascula r mallet is evident. There is no hilar or mediastinal adenopathy. No pleural or pericardial effusion is seen. No definite fracture is iden tified. There is thoracic spondylosis and there is chronic compression deformity of T12. Images of the upper abdomen are remarkable for a somewhat distended stomach and cholecystectomy. IMPRESSION: 1. No acute abnormality. 2. Cholecystectomy. 3. Old T12 compression fracture. SL: 2014-04-08 CHEST, [place] AND LAT[facility]AL. [place] 00[place]00[place]43-00:00 INDICATION: Chest pain. COMPARISON: Chest 03/29/2012. Image quality is compromised by large patient si ze. Images are underexposed. No gross fracture is identified. There is minor thoracic spondylosis. Heart and mediastinum are not remarkable. No pulmonary infiltrate, vascular congestion or pleural effusion is seen. No change has occurred. SL: 2014-04-08 CHEST, [place] AND LATERAL. [place] 00:00[place]43-[place]00 INDICATION: Chest pain. COMPARISON: Chest 03/29/2012. Image quality is compromised by large patient si ze. Images are underexposed. No gross fracture is identified. There is minor thoracic spondylosis. Heart and mediastinum are not remarkable. No pulmonary infiltrate, vascular congestion or pleural effusion is seen. No change has occurred. SL: 2014-02-23 EXAM: THORACIC SPINE 2 VIEWS [facility]EL[facility] [place] 10:18:13-00:00 EXAM: LUMBAR SPINE 2 VIEWS DATE: Feb 23, 2014 10:29:00 AM INDICATION: 805.2 Closed Fra cture of Dorsal [thoracic] Vertebra without Mention of Spinal Cord Injury COMPARISON: Thoracic and lumbar spine series 11/02 TECHNIQUE: AP and lateral radiographs of the tho racic and lumbar spine FINDINGS: There has been no progressive loss in height at the T12 and L2 vertebral body fractures with mild interval remodeling of the fractures. No additional fracture identified. There is limited visu alization of the upper thora cic spine. Alignment of the thoracolumbar spine is unchanged. IMPRESSION: No progressive loss in height at T12 and L2 vert ebral body fractures. 2014-02-23 EXAM: THORACIC SPINE 2 VIEWS [facility]EL[facility] [place] 10:18:13-00:00 EXAM: LUMBAR SPINE 2 VIEWS DATE: Feb 23, 2014 10:29:00 AM INDICATION: 805.2 Closed Fra cture of Dorsal [thoracic] Vertebra without Mention of Spinal Cord Injury COMPARISON: Thoracic and lumbar spine series 11/02 TECHNIQUE: AP and lateral radiographs of the tho racic and lumbar spine FINDINGS: There has been no progressive loss in height at the T12 and L2 vertebral body fractures with mild interval remodeling of the fractures. No additional fracture identified. There is limited visu alization of the upper thora cic spine. Alignment of the thoracolumbar spine is unchanged. IMPRESSION: No progressive loss in height at T12 and L2 vert ebral body fractures. 2014-02-23 EXAM: THORACIC SPINE 2 VIEWS NAYELI Reed 10:18:13-00:00 EXAM: LUMBAR SPINE 2 VIEWS DATE: Feb 23, 2014 10:29:00 AM INDICATION: 805.2 Closed Fra cture of Dorsal [thoracic] Vertebra without Mention of Spinal Cord Injury COMPARISON: Thoracic and lumbar spine series 11/02 TECHNIQUE: AP and lateral radiographs of the tho racic and lumbar spine FINDINGS: There has been no progressive loss in height at the T12 and L2 vertebral body fractures with mild interval remodeling of the fractures. No additional fracture identified. There is limited visu alization of the upper thora cic spine. Alignment of the thoracolumbar spine is unchanged. IMPRESSION: No progressive loss in height at T12 and L2 vert ebral body fractures. 2014-02-23 EXAM: THORACIC SPINE 2 VIEWS NAYELI Reed 10:18:13-00:00 EXAM: LUMBAR SPINE 2 VIEWS DATE: Feb 23, 2014 10:29:00 AM INDICATION: 805.2 Closed Fra cture of Dorsal [thoracic] Vertebra without Mention of Spinal Cord Injury COMPARISON: Thoracic and lumbar spine series 11/02 TECHNIQUE: AP and lateral radiographs of the tho racic and lumbar spine FINDINGS: There has been no progressive loss in height at the T12 and L2 vertebral body fractures with mild interval remodeling of the fractures. No additional fracture identified. There is limited visu alization of the upper thora cic spine. Alignment of the thoracolumbar spine is unchanged. IMPRESSION: No progressive loss in height at T12 and L2 vert ebral body fractures. 2013-11-17 EXAM: THORACIC SPINE [address] [facility] [place] 10:15:53-00:00 EXAM: LUMBAR SPINE 2 VIEWS DATE: Nov 17, 2013 10:30:00 AM INDICATION: 805.2 Closed Fra cture of Dorsal [thoracic] Vertebra without Mention of Spinal Cord Injury COMPARISON: Thoracic spine series 10/01/2013 TECHNIQUE: AP and lateral radiographs of the tho racic and lumbar spine FINDINGS: There is generaliz ed osteopenia. There has been no progressive loss in height at the moderate T12 and L2 vertebral body fractures with approximately 50% height loss at T12 and 20% height loss at L2. Remaining vertebral b leela heights of the thoracic and lumbar spine are maintained. Erdb-uj-oamuqnei degenerative disc changes of the thoracolumbar spine are unchanged. IMPRESSION: Unchanged appearance of T12 and L2 vertebral body fractures without progressive loss in body height. 2013-11-17 EXAM: THORACIC SPINE [address] [facility] [place] 10:15:53-00:00 EXAM: LUMBAR SPINE 2 VIEWS DATE: Nov 17, 2013 10:30:00 AM INDICATION: 805.2 Closed Fra cture of Dorsal [thoracic] Vertebra without Mention of Spinal Cord Injury COMPARISON: Thoracic spine series 10/01/2013 TECHNIQUE: AP and lateral radiographs of the tho racic and lumbar spine FINDINGS: There is generaliz ed osteopenia. There has been no progressive loss in height at the moderate T12 and L2 vertebral body fractures with approximately 50% height loss at T12 and 20% height loss at L2. Remaining vertebral b leela heights of the thoracic and lumbar spine are maintained. Samd-qh-[id number] degenerative disc changes of the thoracolumbar spine are unchanged. IMPRESSION: Unchanged appearance of T12 and L2 vertebral body fractures without progressive loss in body height. 2013-11-17 EXAM: THORACIC SPINE 2 VIEWS NAYELI Reed 10:09:35-00:00 EXAM: LUMBAR SPINE 2 VIEWS DATE: Nov 17, 2013 10:30:00 AM INDICATION: 805.2 Closed Fra cture of Dorsal [thoracic] Vertebra without Mention of Spinal Cord Injury COMPARISON: Thoracic spine series 10/01/2013 TECHNIQUE: AP and lateral radiographs of the tho racic and lumbar spine FINDINGS: There is generaliz ed osteopenia. There has been no progressive loss in height at the moderate T12 and L2 vertebral body fractures with approximately 50% height loss at T12 and 20% height loss at L2. Remaining vertebral b leela heights of the thoracic and lumbar spine are maintained. Gnyr-xy-xyfuruca degenerative disc changes of the thoracolumbar spine are unchanged. IMPRESSION: Unchanged appearance of T12 and L2 vertebral body fractures without progressive loss in body height. 2013-11-17 EXAM: THORACIC SPINE 2 VIEWS NAYELI Reed 10:09:35-00:00 EXAM: LUMBAR SPINE 2 VIEWS DATE: Nov 17, 2013 10:30:00 AM INDICATION: 805.2 Closed Fra cture of Dorsal [thoracic] Vertebra without Mention of Spinal Cord Injury COMPARISON: Thoracic spine series 10/01/2013 TECHNIQUE: AP and lateral radiographs of the tho racic and lumbar spine FINDINGS: There is generaliz ed osteopenia. There has been no progressive loss in height at the moderate T12 and L2 vertebral body fractures with approximately 50% height loss at T12 and 20% height loss at L2. Remaining vertebral b leela heights of the thoracic and lumbar spine are maintained. Lgyq-yr-yiliegmf degenerative disc changes of the thoracolumbar spine are unchanged. IMPRESSION: Unchanged appearance of T12 and L2 vertebral body fractures without progressive loss in body height. 2013-10-01 EXAM: Two views of the thoracic spine NAYELI Reed 11:00:20-00:00 DATE: Oct 01, 2013 11:00:23 AM INDICATION:805.4 Closed Frac ture of Lumbar Vertebra without Mention of Spinal Cord Injury See Clinic Indication COMPARISON: Prior CT dated 06/16/2013 TECHNIQUE: AP and lateral radiographs of the tho racic spine were obtained. FINDINGS: Compression fractu res of T12 and L2 are seen on lateral view, not significantly changed from prior studies. The remainder of the thoracolumbar spine is otherwise unchanged appearance well-main tained. Multilevel discogeni c degenerative changes of the thoracic spine are again noted, unchanged. No acute fracture or dislocation is identified. The soft tissues are unremarkable IMPRESSION: Unchanged appear ance of the T12 and L2 compression fractures from the prior study without evidence of new fracture or other osseous abnormality 2013-10-01 EXAM: Two views of the thoracic spine JAMIR Reed 11:00:20-00:00 DATE: Oct 01, 2013 11:00:23 AM INDICATION:805.4 Closed Frac ture of Lumbar Vertebra without Mention of Spinal Cord Injury See Clinic Indication COMPARISON: Prior CT dated 06/16/2013 TECHNIQUE: AP and lateral radiographs of the tho racic spine were obtained. FINDINGS: Compression fractu res of T12 and L2 are seen on lateral view, not significantly changed from prior studies. The remainder of the thoracolumbar spine is otherwise unchanged appearance well-main tained. Multilevel discogeni c degenerative changes of the thoracic spine are again noted, unchanged. No acute fracture or dislocation is identified. The soft tissues are unremarkable IMPRESSION: Unchanged appear ance of the T12 and L2 compression fractures from the prior study without evidence of new fracture or other osseous abnormality 2013-06-16 EXAMINATION: CT lumbar spine without contrast. JAMIR Reed 10::-: DATE: 06/16/2013 INDICATION: Lumbar spine fracture. DISCUSSION: Noncontrast images the lumba r spine are performed with multiplanar reformatting and compared to a study dated 04/07/2013. Over the interval, a new com pression deformity has developed in the superior endplate of L4 with minimal loss of height centrally and development of sclerosis. There is concomitant widening of the disc space. Chronic sclerotic wedge comp ression fractures of T12 and wedge compression deformity of L1 are again noted unchanged with focal areas of kyphosis at those levels. There is some stenosis the c anal at T11-T12 due to the focal kyphosis and mild posterior migration of the endplate. Canal is widely patent at the other levels. IMPRESSION: Interval development of new superior endplate fr acture at L4. 2013-06-16 EXAMINATION: CT lumbar spine without contrast. JAMIR Reed 10::-:00 DATE: 06/16/2013 INDICATION: Lumbar spine fracture. DISCUSSION: Noncontrast images the lumba r spine are performed with multiplanar reformatting and compared to a study dated 04/07/2013. Over the interval, a new com pression deformity has developed in the superior endplate of L4 with minimal loss of height centrally and development of sclerosis. There is concomitant widening of the disc space. Chronic sclerotic wedge comp ression fractures of T12 and wedge compression deformity of L1 are again noted unchanged with focal areas of kyphosis at those levels. There is some stenosis the c anal at T11-T12 due to the focal kyphosis and mild posterior migration of the endplate. Canal is widely patent at the other levels. IMPRESSION: Interval development of new superior endplate fr acture at L4. 2013-04-07 EXAM: CT lumbar spine without contrast. NAYELI Reed 10:10:00-00:00 DATE: 04/07/2013 INDICATION: Fracture. COMPARISON: CT and 01/12/2013. X-ray 08/21/2011, C T 11/13/2009 TECHNIQUE: Examination was p erformed in a helical scanner without contrast material administration. Sagittal and coronal reformations were performed. DISCUSSION: Stable compression fracture of the superior endplate at L2 with no progression of height loss. There is no retropulsion of bony fragments. There has been progression i n height loss at T12, with interval development of sclerotic changes in the vertebral body and lucency along its superior endplate suspicious for a developing cleft. There is no gas formation. 6 mm retr opulsion of bony fragments, increased since most recent exam. There are no new bony fractures. Diffuse osteopenia. Left facet arthropathy at L5-S1. Unchanged sclerotic changes along the iliac side of the right SI joint since exam from November 2009. IMPRESSION: Progression in the height lo ss at T12 with new sclerotic changes and increased retropulsion of bony fragments by 4 mm since most recent exam from January. Developing avascular necrosis is suspected and short-term followup is recommended. Stable compression fracture at L2. Right sacroiliitis. 2013-04-07 EXAM: CT lumbar spine without contrast. NAYELI Reed 10:10:00-00:00 DATE: 04/07/2013 INDICATION: Fracture. COMPARISON: CT and 01/12/2013. X-ray 08/21/2011, C T 11/13/2009 TECHNIQUE: Examination was p erformed in a helical scanner without contrast material administration. Sagittal and coronal reformations were performed. DISCUSSION: Stable compression fracture of the superior endplate at L2 with no progression of height loss. There is no retropulsion of bony fragments. There has been progression i n height loss at T12, with interval development of sclerotic changes in the vertebral body and lucency along its superior endplate suspicious for a developing cleft. There is no gas formation. 6 mm retr opulsion of bony fragments, increased since most recent exam. There are no new bony fractures. Diffuse osteopenia. Left facet arthropathy at L5-S1. Unchanged sclerotic changes along the iliac side of the right SI joint since exam from November 2009. IMPRESSION: Progression in the height lo ss at T12 with new sclerotic changes and increased retropulsion of bony fragments by 4 mm since most recent exam from January. Developing avascular necrosis is suspected and short-term followup is recommended. Stable compression fracture at L2. Right sacroiliitis. 2013-02-24 EXAM: XR LUMBAR SPINE 2 VIEWS NAYELI Reed 10:48:14-00:00 DATE: February 24, 2013, 1041 hours. INDICATION: compression fracture . COMPARISON: Thoracic and lum bar CT from January 12, 2013, lumbar radiographs from January 20, 2012. TECHNIQUE: AP and lateral radiographs of the lum bar spine DISCUSSION: 5 lumbar-type, n onrib-bearing vertebral bodies are identified. Again seen is chronic appearing compression deformity of the L2 vertebral body with 50% loss in vertebral body height. The comp ression deformity at T12 karen tebral body has had interval slight progressive loss in height with now 45% loss in vertebral body height. There is associated focal kyphosis at the level of T12. There are anterior vertebral body osteophytes present from L1 to L3. There are surgical clips in the right upper quadrant. IMPRESSION: 1. Slight interval progressi ve loss in height of the T12 vertebral body compression fracture. 2. Unchanged appearance of L2 vertebral body com pression deformity. 2013-02-24 EXAM: XR LUMBAR SPINE 2 VIEWS NAYELI Reed 10:48:14-00:00 DATE: February 24, 2013, 1041 hours. INDICATION: compression fracture . COMPARISON: Thoracic and lum bar CT from January 12, 2013, lumbar radiographs from January 20, 2012. TECHNIQUE: AP and lateral radiographs of the lum bar spine DISCUSSION: 5 lumbar-type, n onrib-bearing vertebral bodies are identified. Again seen is chronic appearing compression deformity of the L2 vertebral body with 50% loss in vertebral body height. The comp ression deformity at T12 karen tebral body has had interval slight progressive loss in height with now 45% loss in vertebral body height. There is associated focal kyphosis at the level of T12. There are anterior vertebral body osteophytes present from L1 to L3. There are surgical clips in the right upper quadrant. IMPRESSION: 1. Slight interval progressi ve loss in height of the T12 vertebral body compression fracture. 2. Unchanged appearance of L2 vertebral body com pression deformity. 2013-01-12 EXAM: CT CERVICAL SPINE WITHOUT CONTRAST [facility] 12:00:00-00:00 DATE: Jan 12, 2013 12:21:00 PM INDICATION: Trauma COMPARISON: None available TECHNIQUE: Axially oriented 2mm thick images were obtained through the entire cervical spine, without contrast. Sagittal and coronal reformations are also provided. FINDINGS: No fracture, malal ignment or other bony abnormality is identified. Mild disc space narrowing is present at C5-C7. No soft tissue abnormality is identified. IMPRESSION: No cervical spine fracture or malali gnment identified. 2013-01-12 EXAM: CT THORACIC SPINE WITHOUT CONTRAST. [facility] 12:00:-: EXAM: CT LUMBAR SPINE WITHOUT CONTRAST. INDICATION: Trauma. TECHNIQUE: Noncontrast axial CT imaging of the t horacic and lumbar spine. COMPARISON: None. FINDINGS: There is acute compression f racture of the T12 vertebral body with 33% loss in body height and 2 mm retropulsion. There is chronic fracture of the L2 vertebral body with 50% loss maximal loss in body he ight. No additional fracture is identified. There is mild focal kyphosis at the L2 level. No uncovering of the facets or listhesis is apparent. Bridging vertebral body osteophytes are present at T7-T9 Spinal soft tissues are unre markable. There is a 1.4 cm hypoattenuating lesion within the dermal soft tissues of the posterior back, likely representing sebaceous cyst. IMPRESSION: 1. Acute compression fractur e at T12 with moderate height loss and 2 mm of retropulsion. 2. Chronic compression fract ure of the L2 vertebral body with moderate height loss. 2013-01-12 EXAM: CT THORACIC SPINE WITHOUT CONTRAST. [facility] 12:00:00-: EXAM: CT LUMBAR SPINE WITHOUT CONTRAST. INDICATION: Trauma. TECHNIQUE: Noncontrast axial CT imaging of the t horacic and lumbar spine. COMPARISON: None. FINDINGS: There is acute compression f racture of the T12 vertebral body with 33% loss in body height and 2 mm retropulsion. There is chronic fracture of the L2 vertebral body with 50% loss maximal loss in body he ight. No additional fracture is identified. There is mild focal kyphosis at the L2 level. No uncovering of the facets or listhesis is apparent. Bridging vertebral body osteophytes are present at T7-T9 Spinal soft tissues are unre markable. There is a 1.4 cm hypoattenuating lesion within the dermal soft tissues of the posterior back, likely representing sebaceous cyst. IMPRESSION: 1. Acute compression fractur e at T12 with moderate height loss and 2 mm of retropulsion. 2. Chronic compression fract ure of the L2 vertebral body with moderate height loss. 2013-01-12 EXAM: CT CERVICAL SPINE WITHOUT CONTRAST [facility] 12::-: DATE: Jan 12, 2013 12:21:00 PM INDICATION: Trauma COMPARISON: None available TECHNIQUE: Axially oriented 2mm thick images were obtained through the entire cervical spine, without contrast. Sagittal and coronal reformations are also provided. FINDINGS: No fracture, malal ignment or other bony abnormality is identified. Mild disc space narrowing is present at C5-C7. No soft tissue abnormality is identified. IMPRESSION: No cervical spine fracture or malali gnment identified. 2013-01-12 EXAM: CT THORACIC SPINE WITHOUT CONTRAST. [facility] 12::-: EXAM: CT LUMBAR SPINE WITHOUT CONTRAST. INDICATION: Trauma. TECHNIQUE: Noncontrast axial CT imaging of the t horacic and lumbar spine. COMPARISON: None. FINDINGS: There is acute compression f racture of the T12 vertebral body with 33% loss in body height and 2 mm retropulsion. There is chronic fracture of the L2 vertebral body with 50% loss maximal loss in body he ight. No additional fracture is identified. There is mild focal kyphosis at the L2 level. No uncovering of the facets or listhesis is apparent. Bridging vertebral body osteophytes are present at T7-T9 Spinal soft tissues are unre markable. There is a 1.4 cm hypoattenuating lesion within the dermal soft tissues of the posterior back, likely representing sebaceous cyst. IMPRESSION: 1. Acute compression fractur e at T12 with moderate height loss and 2 mm of retropulsion. 2. Chronic compression fract ure of the L2 vertebral body with moderate height loss. 2013-01-12 EXAM: CT THORACIC SPINE WITHOUT CONTRAST. [facility] 12:00:00-00:00 EXAM: CT LUMBAR SPINE WITHOUT CONTRAST. INDICATION: Trauma. TECHNIQUE: Noncontrast axial CT imaging of the t horacic and lumbar spine. COMPARISON: None. FINDINGS: There is acute compression f racture of the T12 vertebral body with 33% loss in body height and 2 mm retropulsion. There is chronic fracture of the L2 vertebral body with 50% loss maximal loss in body he ight. No additional fracture is identified. There is mild focal kyphosis at the L2 level. No uncovering of the facets or listhesis is apparent. Bridging vertebral body osteophytes are present at T7-T9 Spinal soft tissues are unre markable. There is a 1.4 cm hypoattenuating lesion within the dermal soft tissues of the posterior back, likely representing sebaceous cyst.
[2023-02-06 23:40] LABS: Absolute Lymphocytes (CBC) 1.7 K/uL (0.7-4.9); Hematocrit 35.8 % (36.0-45.0); Lymphocytes % 20.2 % (15.3-44.8); MPV 9.2 fL (7.6-11.3); RBC Red Blood Cell Count 4.17 M/uL (3.86-4.86)
[2023-02-07] LABS: Bilirubin Total 0.3 mg/dL (0.2-1.0); Protein, Total 7.9 g/dL (6.4-8.2)
[2023-02-07 00:01] LABS: Potassium 3.6 mEq/L (3.5-5.1)
--- NOTE | 2023-02-07 03:09 | ER ---
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 blood glucose 70 on EMS lg3 arrival. pt states she has had a hard time keeping her glucose within normal limits all day today. complaints of dizziness. Coronavirus screen: Client denies travel out of the [place] in the last 14 days. At this time, the client does not indicate any symptoms associated with coronavirus-19. Ebola Screen: No symptoms or risks identified at this time. Initial Sepsis Screen: Does the patient meet any 2 criteria? No. Patient's initial sepsis screen is negative. Does the patient have a suspected source of infection? No. Patient's initial sepsis screen is negative. Risk Assessment: Do you want to hurt yourself or someone else? Patient reports no desire to harm self or others. Onset of symptoms was February 06, 2023. 22:51 Method Of Arrival: EMS: [facility] 22:51 Acuity: CHARITY 4 lg3 Triage Assessment: 22:55 General: Appears in no apparent distress. comfortable, Behavior is calm, cooperative. lg3 Pain: Denies pain. EENT: No deficits noted. No signs and/or symptoms were reported regarding the EENT system. Neuro: No deficits noted. Dsouza Agitation-Sedation Scale (RASS): 0 - Alert and Calm Level of Consciousness is awake, alert, obeys commands, Oriented to person, place, time, situation. Cardiovascular: No deficits noted. Denies chest pain, shortness of breath. Respiratory: No deficits noted. Airway is patent Respiratory effort is even, unlabored, Respiratory pattern is regular, symmetrical. GI: No deficits noted. No signs and/or symptoms were reported involving the gastrointestinal system. Abdomen is round non-distended, obese. : No deficits noted. No signs and/or symptoms were reported regarding the genitourinary system. Derm: Skin is intact, is healthy with good turgor, Skin is diaphoretic, Skin is normal, Skin temperature is cool. Musculoskeletal: No deficits noted. No signs and/or symptoms reported regarding the musculoskeletal system. Circulation, motion, and sensation intact. Range of motion: intact in all extremities. Historical: - Allergies: 22:55 Adhesives; lg3 22:55 Codeine; lg3 22:55 Latex, Natural Rubber; lg3 - PMHx: 22:55 4 compressed fx of the back; Charcomarie tooth; Diabetes - IDDM; lg3 - PSHx: 22:55 hysterectomy; Cholecystectomy; lg3 - Immunization history:: Adult Immunizations up to date, Client reports having NOT received the Covid vaccine. - Social history:: Smoking status: Patient denies any tobacco usage or history of. Patient/guardian denies using alcohol, street drugs. - Family history:: not pertinent. Screenin:31 [facility] ED Fall Risk Assessment (Adult) History of falling in the last 3 months, cm10 including since admission No falls in past 3 months (0 pts) Confusion or Disorientation No (0 pts) Intoxicated or Sedated No (0 pts) Impaired Gait No (0 pts) Mobility Assist Device Used No (0 pt) Altered Elimination No (0 pt) Score/Fall Risk Level 0 - 2 = Low Risk Oriented to surroundings, Maintained a safe environment, Hourly rounding (assess needs \T\ fall precautionary measures) done. Abuse screen: Denies threats or abuse. Denies injuries from another. Nutritional screening: No deficits noted. Tuberculosis screening: No symptoms or risk factors identified. Assessment: 23:30 General: Appears in no apparent distress. comfortable, Behavior is calm, cooperative. cm10 Neuro: No deficits noted. Level of Consciousness is awake, alert, Oriented to person, place, time, situation. Cardiovascular: No deficits noted. Capillary refill < 3 seconds. Respiratory: No deficits noted. Airway is patent Respiratory effort is even, unlabored, Respiratory pattern is regular, symmetrical. Derm: No deficits noted. Skin is intact, Skin is pink, warm \T\ dry. 02/07 00:54 Reassessment: Patient appears in no apparent distress at this time. pt eating. as6 Vital Signs: 02/06 22:51 BP 120 / 73; Pulse 81; Resp 17 S; Temp 97.8(O); Pulse Ox 96% on R/A; Weight 70.31 kg lg3 (R); Height 5 ft. 0 in. (R); Pain 0/10; 02/07 00:53 BP 121 / 68; Pulse 85; Resp 18 S; Pulse Ox 99% on R/A; as6 02:53 BP 98 / 70; Pulse 79; Resp 18 S; Pulse Ox 99% on R/A; as6 02/06 22:51 Body Mass Index 30.27 (70.31 kg, 152.4 cm) lg3 02/06 22:51 Pain Scale: Adult lg3 ED Course: 02/06 22:50 Patient arrived in ED. lg3 22:55 Triage completed. lg3 22:55 Arm band placed on left wrist. lg3 23:17 Geraldo Velasco MD is Attending Physician. sp4 23:29 CBC with Diff Sent. cm10 23:29 CMP Sent. cm10 23:29 Lipase Sent. cm10 23:29 Initial lab(s) drawn, by me, sent to lab. Inserted saline lock: 20 gauge in left cm10 antecubital area, using aseptic technique. Blood collected. 23:31 Patient has correct armband on for positive identification. Bed in low position. Call cm10 light in reach. Side rails up X 1. Pulse ox on. NIBP on. Door closed. 23:36 Diet: Patient given juice. [place] and crackers. cm10 02/07 00:53 Prasanth Ya, RN is Primary Nurse. as6 03:07 No provider procedures requiring assistance completed. as6 03:16 IV discontinued, intact, bleeding controlled, No redness/swelling at site. Pressure pf1 dressing applied. Administered Medications: No medications were administered Medication: 02/06 23:31 VIS not applicable for this client. cm10 Point of Care Testing: Blood Glucose: 02/07 00:53 Blood Glucose: 257 mg/dL; as6 01:56 Blood Glucose: 290 mg/dL; as6 Ranges: Outcome: 03:07 Discharged to home with family. as6 03:07 Condition: stable 03:08 Discharge ordered by . sp4 03:15 Discharge instructions given to patient, Instructed on discharge instructions, follow pf1 up and referral plans. Demonstrated understanding of instructions, follow-up care. 03:16 Patient left the ED. pf1 Signatures: Kayla Glover RN RN lg3 Prasanth Ya RN RN as6 Sangeetha Valle RN RN pf1 Geraldo Velasco MD MD sp4 Jenni Ulloa RN RN cm10 Corrections: (The following items were deleted from the chart) 02/06 22:59 22:51 Chief complaint: EMS states: toned out for low blood sugar. blood glucose 70 on lg3 EMS arrival. pt complaints of dizziness lg3
--- NOTE | 2023-02-07 03:09 | EDPHYS ---
Physician Documentation [facility] Name: Yun Hawley Age: 62 yrs Sex: Female : 1960 Arrival Date: 02/06/2023 Time: 22:38 Bed 3 Private MD: ED Physician Geraldo Velasco HPI: 02/06 23:17 This 62 yrs old Female presents to ER via EMS with complaints of Low Blood sp4 Sugar. 02/07 07:22 8-year-old female with history of insulin-dependent diabetes presents with EMS for low sp4 blood sugar at home. Patient's blood sugar was 47 at home and when EMS arrived patient was given juice patient sugar has improved patient states that she has injected subcutaneous Tresiba 25 units at 7 PM and also NovoLog 10 units at 7 PM patient then ate peanut butter and crackers.. 07:24 EMS reported that her blood sugar was 70 when they have arrived to picker feeder the patient. sp4 Historical: - Allergies: 02/06 22:55 Adhesives; lg3 22:55 Codeine; lg3 22:55 Latex, Natural Rubber; lg3 - PMHx: 22:55 4 compressed fx of the back; Charcomarie tooth; Diabetes - IDDM; lg3 - PSHx: 22:55 hysterectomy; Cholecystectomy; lg3 - Immunization history:: Adult Immunizations up to date, Client reports having NOT received the Covid vaccine. - Social history:: Smoking status: Patient denies any tobacco usage or history of. Patient/guardian denies using alcohol, street drugs. - Family history:: not pertinent. ROS: 02/07 07:24 Constitutional: Negative for fever, chills, and weight loss, Eyes: Negative for injury, sp4 pain, redness, and discharge, ENT: Negative for injury, pain, and discharge, Neck: Negative for injury, pain, and swelling, Cardiovascular: Negative for chest pain, palpitations, and edema, Respiratory: Negative for shortness of breath, cough, wheezing, and pleuritic chest pain, Abdomen/GI: Negative for abdominal pain, nausea, vomiting, diarrhea, and constipation, Back: Negative for injury and pain, : Negative for injury, bleeding, discharge, and swelling, MS/Extremity: Negative for injury and deformity, Skin: Negative for injury, rash, and discoloration, Neuro: Negative for headache, weakness, numbness, tingling, and seizure, Psych: Negative for depression, anxiety, Allergy/Immunology: Negative for hives, rash, and allergies Endocrine: Negative for neck swelling, polydipsia, polyuria, polyphagia, and weight changes Hematologic/Lymphatic: Negative for swollen nodes, abnormal bleeding, and unusual bruising Exam: 07:24 Constitutional: This is a well developed, well nourished patient who is awake, alert, sp4 and in no acute distress. Head/Face: Normocephalic, atraumatic. Eyes: Pupils equal round and reactive to light, extra-ocular motions intact. Lids and lashes normal. Conjunctiva and sclera are not injected. Cornea within normal limits. Periorbital areas with no swelling, redness, or edema. ENT: Nares patent. No nasal discharge, no septal abnormalities noted. Tympanic membranes are normal and external auditory canals are clear. Oropharynx with no redness, swelling, or masses, exudates, or evidence of obstruction, uvula midline. Mucous membranes moist. Neck: Trachea midline, no thyromegaly or masses palpated, and no cervical lymphadenopathy. Supple, full range of motion without nuchal rigidity, or vertebral point tenderness. Chest/axilla: Normal chest wall appearance and motion. Nontender with no deformity. No lesions are appreciated. Cardiovascular: Regular rate and rhythm with a normal S1 and S2. No gallops, murmurs, or rubs. Normal PMI, no JVD. No pulse deficits. Respiratory: Lungs have equal breath sounds bilaterally, clear to auscultation and percussion. No rales, rhonchi or wheezes noted. No increased work of breathing, no retractions or nasal flaring. Abdomen/GI: Soft, non-tender, with normal bowel sounds. No distension or tympany. No guarding or rebound. No evidence of tenderness throughout. Back: No spinal tenderness. No costovertebral tenderness. Skin: Warm, dry with normal turgor. Normal color with no rashes, no lesions, and no evidence of cellulitis. MS/ Extremity: Pulses equal, no cyanosis. Neurovascular intact. Full, normal range of motion. Neuro: Awake and alert, GCS 15, oriented to person, place, time, and situation. Cranial nerves II-XII grossly intact. Motor strength 5/5 in all extremities. Sensory grossly intact. Psych: Awake, alert, with orientation to person, place and time. Behavior, mood, and affect are within normal limits Vital Signs: 02/06 22:51 BP 120 / 73; Pulse 81; Resp 17 S; Temp 97.8(O); Pulse Ox 96% on R/A; Weight 70.31 kg lg3 (R); Height 5 ft. 0 in. (R); Pain 0/10; 02/07 00:53 BP 121 / 68; Pulse 85; Resp 18 S; Pulse Ox 99% on R/A; as 02:53 BP 98 / 70; Pulse 79; Resp 18 S; Pulse Ox 99% on R/A; as6 02/06 22:51 Body Mass Index 30.27 (70.31 kg, 152.4 cm) lg3 02/06 22:51 Pain Scale: Adult lg3 MDM: 02/06 23:17 Patient medically screened. sp4 02/07 07:24 Differential diagnosis: Marcel's syndrome, DKA, hyperglycemia, hyperthyroidism, sp4 hypoglycemic episode, hypothyroidism. Data reviewed: vital signs, nurses notes, EMS record, old medical records, lab test result(s), CBC, electrolytes, hepatic panel. Consideration of Admission/Observation Escalation of care including admission/observation considered. ED course: Blood sugar has proven stable in the emergency department after patient consumed some food. Patient stable for discharge home with advised to eat full meal when injecting her insulin.. 02/06 23:06 Order name: Glucose, Ancillary Testing; Complete Time: 23:17 EDMS 02/06 23:17 Order name: CBC with Diff; Complete Time: 03:05 sp4 02/06 23:17 Order name: CMP; Complete Time: 03:05 sp4 02/06 23:17 Order name: Lipase; Complete Time: 03:05 sp4 02/07 01:05 Order name: Glucose, Ancillary Testing; Complete Time: 03:05 EDMS 02/07 02:05 Order name: Glucose, Ancillary Testing; Complete Time: 03:05 EDMS 02/06 23:30 Order name: Diet [address]; Complete Time: 23:31 sp4 02/06 23:17 Order name: IV Saline Lock; Complete Time: 23:29 sp4 02/06 23:17 Order name: Labs collected and sent; Complete Time: 23:29 sp4 Administered Medications: No medications were administered Point of Care Testing: Blood Glucose: 00:53 Blood Glucose: 257 mg/dL; as6 01:56 Blood Glucose: 290 mg/dL; as6 Ranges: Critical Glucose Levels:Adult <50 mg/dl or >400 mg/dl <40 mg/dl or >180 mg/dl Disposition Summary: 02/07/23 03:08 Discharge Ordered Location: Home sp4 Problem: new sp4 Symptoms: have improved sp4 Condition: Stable sp4 Diagnosis - Hypoglycemia, unspecified sp4 - Diabetes mellitus due to underlying condition with hypoglycemia sp4 - Upper glycemia secondary to insulin sp4 Followup: sp4 - With: Private Physician - When: 7 - 10 days - Reason: Recheck today's complaints Discharge Instructions: - Discharge Summary Sheet sp4 - Hypoglycemia sp4 Forms: - [email or web address] sp4 Signatures: Dispatcher [employer] Kayla Rosenbaum RN RN lg3 Geraldo Velasco MD MD sp4
[2023-02-07 04:19] VITALS: TEMP 97.8
[2023-02-07 04:41] VITALS: O2SAT 99
[2023-02-07 04:47] VITALS: BP 98/70
== END 2023-02-07 03:16 | disposition home or self-care (01) ==
LOC: ER 22:38
DX: E11.649 Type 2 diabetes mellitus with hypoglycemia without coma (principal); Z88.5 Allergy status to narcotic agent; Z91.040 Latex allergy status; Z91.048 Other nonmedicinal substance allergy status
CPT/HCPCS: 36415; 80053; 82947; 83690; 85025; 99284